=== PATIENT | female | born 1955 | race Caucasian/White ===

== ENCOUNTER 2020-02-23 08:02 | Outpatient (REF) | payer MEDICAID, SELFPAY ==
--- NOTE | 2020-02-23 | US_ITS ---
EXAMINATION: RIGHT and LEFT LOWER EXTREMITY VENOUS ULTRASOUND (Reflux Exam) CLINICAL INDICATION: leg pain and varicose veins. COMPARISON: None. TECHNIQUE: Color flow triplex imaging and compression Doppler was performed to evaluate both the deep and the superficial systems bilaterally. To evaluate the superficial system, the examination was performed in the upright position. Color-flow Doppler ultrasound and compression ultrasound were utilized. In addition, maneuvers were utilized to demonstrate reflux. FINDINGS: 1. DEEP VENOUS ULTRASOUND OF THE RIGHT LOWER EXTREMITY: Respiratory variation, normal compression and augmented flow are noted in the right common femoral vein as well as the right popliteal vein and there is no evidence of deep venous thrombosis at these locations. There is no evidence of reflux in the deep system in either the common femoral vein or the popliteal vein. There is no evidence of a Gonzalez's cyst. 2. SUPERFICIAL ULTRASOUND WITH DOPPLER OF RIGHT LOWER EXTREMITY: The right great saphenous vein at the saphenofemoral junction measures 11 mm, at the mid thigh 4 mm, [id number] 3 mm, hrapr-mom-[id number] 3 mm, at mid calf 2 mm and at the ankle measures 3 mm. There is no reflux demonstrated in the right great saphenous vein. There is an accessory medial greater saphenous vein that measures 3 mm and does not demonstrate reflux. The right small saphenous vein measures 2 mm and shows no reflux. There is a parts counter representative in the mid calf that measures 2 mm and demonstrates 2.4 seconds reflux. There is a varicosity in the mid thigh that measures 3 mm and does not demonstrate reflux. 3. DEEP VENOUS ULTRASOUND OF THE LEFT LOWER EXTREMITY: Respiratory variation, normal compression and augmented flow are noted in the left common femoral vein as well as the left popliteal vein and there is no evidence of deep venous thrombosis at these locations. There is no evidence of reflux in the deep system in either the common femoral vein or the popliteal vein. . There is no evidence of a Gonzalez's cyst. 4. SUPERFICIAL ULTRASOUND WITH DOPPLER OF LEFT LOWER EXTREMITY: Left great saphenous vein at the saphenofemoral junction measures 11 mm, at the mid thigh 5 mm, wwfsb-vtk-[id number] 4 mm, szzbx-[id number]-ykxz 4 mm, at mid calf 3 mm and at the ankle measures 3 mm. . The left great there is left greater saphenous vein reflux measuring 3 cm below the knee. There is no left greater saphenous vein reflux measuring 3 cm below the knee. There is a medial accessory greater saphenous vein in measures 5 mm and does not demonstrate reflux. The left small saphenous vein measures 2-4 mm and shows no reflux. There is a varicosity in the mid thigh that measures 3 mm and does not demonstrate reflux. IMPRESSION: 1. No evidence of reflux or thrombus in the common femoral veins or popliteal veins bilaterally. 2. LEFT greater saphenous vein reflux measuring 3 seconds below the knee. 3. No RIGHT greater saphenous vein reflux. 2.4 seconds reflux in a parts counter representative in the mid right calf
== END 2020-02-23 08:03 | disposition home or self-care (01) ==
LOC: HO.US 08:02
PROVIDERS: Visit Provider Surgery Vascular Surgery
DX: I83.11 Varicose veins of right lower extremity with inflammation (principal)
CPT/HCPCS: 93970

== ENCOUNTER 2020-03-21 10:48 | Outpatient (REF) | payer MEDICAID, SELFPAY ==
--- NOTE | 2020-03-21 | MM_ITS ---
EXAMINATION: MM SCREENING DIGITAL BREAST TOMOSYNTHESIS, BILATERAL CLINICAL INFORMATION: Screening. Asymptomatic. The lifetime risk of breast cancer based on the Tyrer-Cuzick Model is 5%. COMPARISON: Mammography: 11/21/2017, 12/15/2015 TECHNIQUE: Digital breast tomosynthesis is performed in both the craniocaudal and mediolateral oblique views along with computer-aided detection (CAD). Synthesized 2D images are generated from the tomosynthesis. FINDINGS: There are scattered areas of fibroglandular density (ACR BI-RADS breast composition Category b). There are no significant masses, abnormal calcifications, or other abnormalities. Referable pattern is similar to prior studies. No developing density. The axilla and skin contours are unremarkable. MM/MM tomosynthesis screening BI IMPRESSION: No mammographic evidence of malignancy. ASSESSMENT: BI-RADS 1: Negative RECOMMENDATION: Routine annual mammography screening. This patient's information was entered into a reminder system with a target due date for their next mammogram.
== END 2020-03-21 10:49 | disposition home or self-care (01) ==
LOC: HO.MAMMO 10:48
PROVIDERS: Visit Provider Nurse Practitioner Primary Care
DX: Z12.31 Encounter for screening mammogram for malignant neoplasm of breast (principal)
CPT/HCPCS: 77063; 77067

== ENCOUNTER 2020-04-04 19:26 | Emergency (ER) | payer MEDICAID, SELFPAY ==
[2020-04-04 19:51] VITALS: BP 168/77; PULSE 70; RESP 18; TEMP 36.1; O2SAT 97; BMI 33.5
--- NOTE | 2020-04-04 19:57 | PC.NURSE ---
wart like dry calloused lumps on feet. also smaller pustules on palms of hands.
--- NOTE | 2020-04-04 20:53 | ED_ITS ---
HPI - Skin/Abscess/Foreign Bdy General Chief complaint: Extremity Injury, Lower Stated complaint: Foot pain Source: patient Mode of arrival: ambulatory Limitations: no limitations History of Present Illness HPI narrative: 64-year-old female presents with a scattered raised pustular rash to hands and feet. rash has been present for a few weeks, was seen by urgent care or primary care physician and given topical ointments have been ineffective. She states the rash is very itchy and is getting worse. She does not describe any fevers, chills, sick contacts, insect bites, denies bedbugs, allergic reaction, chest pain or pressure, palpitations, mouth lesions, difficulty swallowing, dizziness, lightheadedness, and weakness. MD complaint: rash Onset (ago): week(s) (2) Tetanus up to date: yes Location: L hand, R hand, L foot and R foot Severity: moderate Severity scale (1-10): 6 Quality: burning Pain Consistency: constant Relieving factors: none Associated symptoms: denies other symptoms Treatments prior to arrival: corticosteroid Related Data Previous Rx's Medication Instructions Recorded diltiazem HCl 30 mg tablet 30 mg PO TID 30 Days #90 tab 04/01/20 cephalexin [Keflex] 500 mg PO Q8H 10 Days #30 cap 04/04/20 doxycycline monohydrate 100 mg PO BID 10 Days #20 cap 04/04/20 Allergies Allergy/AdvReac Type Severity Reaction Status Date / Time rivaroxaban [From XARELTO] Allergy Intermediate GI BLEEDING Verified 04/04/20 19:50 SEAFOOD Allergy Intermediate RASH Uncoded 01/28/20 19:09 seafood Allergy Unknown itch, Uncoded 01/19/20 00:00 rash, SOB Review of Systems Review of Systems: Constitutional: No Fever, No Chills ENT/Mouth: No sore throat, No Rhinorrhea Eyes: No Eye Pain, No Swelling, No Redness Cardiovascular: No Chest Pain, No SOB Respiratory: No Cough, No Sputum Gastrointestinal: No Nausea, No Vomiting, No Diarrhea, No abdominal Pain Genitourinary: No Dysuria, No Hematuria Musculoskeletal: No joint pain, No Myalgias, No Joint Swelling Skin: No Skin Lesions, positive skin rash Neuro: No Weakness, No Numbness, No Loss of Consciousness, No Dizziness, No Headache Psych: No Anxiety, No Depression, No SI/HI/AH/VH Heme/Lymph: No Bruising, No Bleeding,No Lymphadenopathy Endocrine: No Polyuria, No Polydipsia PMFSH Past Medical History Attestation statement: The following information was validated with the patient. Medical History Hepatitis B Social History Social History Advance Directives: No Advance Directives Information Provided: Yes Physical Exam Vital Signs: Vital Signs: Last Vital Signs Temp 97.0 F 04/04/20 19:51 Pulse 70 04/04/20 19:51 Resp 18 04/04/20 19:51 BP 168/77 H 04/04/20 19:51 Pulse Ox 97 04/04/20 19:51 Body Mass Index 33.5 Appearance: Alert. Oriented X3. No acute distress. Eyes: Pupils equal, round and reactive to light. ENT: Pharynx normal. Neck: Normal inspection. Neck supple. CVS: Normal heart rate and rhythm. Pulses normal. Respiratory: No respiratory distress. Breath sounds normal. Abdomen: Soft and nontender. Skin: Multiple pustule and raised areas the hands and feet, several have crust like lesions, vary in size from 1 mm to 0.5 mm. Skin warm and dry. Normal skin color. Normal skin turgor. Extremities: No lower extremity edema. Neuro: No motor deficit. No sensory deficit. Course Course Course Narrative: 64-year-old female presents with rash to hands and feet. Topical ointments have been ineffective, discussion with ED attending Dr. Logan, rash appears to be Staph in nature, plan is for p.o. antibiotics and for patient to continue to follow-up with her schedule dermatology appointment. Patient verbalized understanding of and agrees to plan of care to discharge home. She does understand that if the rash gets worse or she has any symptoms that are concerning that she should return to the emergency department. MDM - Skin/Abscess/Foreign Bdy Differential Diagnosis Differential diagnosis: Likely abscess of skin or subcutaneous tissue, viral exanthem, dermatophytosis, urticaria, herpes zoster, cellulitis, eczema, insect bites, impetigo and contact dermatitis Medical Records Attestation: I reviewed the patient's medical records. Lab Data Attestation: I reviewed the patient's lab results. Discharge Plan Discharge Clinical Impression: Staph skin infection Patient Disposition: Home, Self-Care Instructions: Acute Rash (ED) Additional Instructions: you were evaluated for rash on her hands and feet. This is suspected to be a staph skin infection. Please take doxycycline and Keflex as directed. These medications are antibiotics. Please keep your appointment with your primary care physician and cyber security engineer as scheduled. Thank you for choosing this emergency department for evaluation. Please follow-up with primary care physician as needed. Return to the emergency department for any new, concerning, or worsening symptoms. Prescriptions: New doxycycline monohydrate 100 mg capsule 100 mg PO BID 10 Days Qty: 20 RF: 0 cephalexin [Keflex] 500 mg capsule 500 mg PO Q8H 10 Days Qty: 30 RF: 0 No Action diltiazem HCl 30 mg tablet 30 mg PO TID 30 Days Qty: 90 RF: 5 Interventions: ED Discharge Assessment Last Done: 04/04/20 21:55 Discharge Date/Time: 04/04/20 21:57
[2020-04-04] MEDS: cephALEXin 500 MG CAPSULE PO (21:36)
== END 2020-04-04 21:57 | disposition home or self-care (01) ==
PROVIDERS: Emergency Provider Internal Medicine
DX: R21 Rash and other nonspecific skin eruption (principal); B95.7 Other staphylococcus as the cause of diseases classified elsewhere; M79.672 Pain in left foot; M79.671 Pain in right foot; Z79.899 Other long term (current) drug therapy
CPT/HCPCS: 99283

== ENCOUNTER 2020-04-25 11:26 | Outpatient (REF) | payer MEDICAID, SELFPAY ==
[2020-04-25 11:55] LABS: MANUAL DIFF FLAG NO
[2020-04-25 11:56] LABS: Basophils Percent Auto 0.2 % (0-2); Eosinophils Percent Auto 0.7 % (0-4); Hematocrit 40.4 % (37-47); Hemoglobin 13.2 g/dl (12.0-16.0); Imm Gran Abs Auto 0.02 X10*3/uL (0.00-0.03); Imm Gran Pct Auto 0.5 % (0.0-0.4); Lymphocytes Absolute Auto 1.4 X10*3/uL (1.2-4.9); Lymphocytes Percent Auto 33.3 % (20-40); Mean Corpuscular HGB Conc 32.7 g/dl (31.0-35.0); Mean Corpuscular Hemoglobin 29.9 pg (27.0-33.0); Mean Corpuscular Volume 91.6 fL (80-98); Mean Platelet Volume 9.3 fL (9.4-12.3); Monocytes Absolute Auto 0.4 X10*3/uL (0.1-1.2); Monocytes Percent Auto 8.5 % (2-11); Neutrophils Absolute Auto 2.4 X10*3/uL (2.0-8.3); Neutrophils Percent Auto 56.8 % (45-73); Platelet Count 120 X10*3/uL (160-400); Red Blood Count 4.41 X10*6/uL (4.20-5.50); Red Cell Distribution Width 14.8 % (11.0-16.0); White Blood Count 4.1 X10*3/uL (4.8-10.8)
[2020-04-25 12:06] LABS: INTERNATIONAL NORM RATIO 1.2 (0.9-1.1); Prothrombin Time 13.8 SEC (10.8-13.0)
[2020-04-25 12:32] LABS: Alanine Aminotransferase 30 U/L (0-31); Albumin Level 3.8 g/dL (3.5-5.0); Alkaline Phosphatase 53 U/L (39-117); Anion Gap 14 (12-20); Aspartate Amino Transferase 23 U/L (5-31); Bilirubin Total 0.6 mg/dL (0.0-1.0); Blood Urea Nitrogen 28 mg/dL (9-16); Carbon Dioxide 28 mmol/L (22-29); Chloride 103 mmol/L (96-108); Estimated Glomerular Filt Rate 55; Glucose Random 82 mg/dL (60-115); Magnesium 1.9 mg/dL (1.6-2.6); Potassium 3.6 mmol/l (3.3-5.1); Sodium 141 mmol/L (135-145); Total Protein 7.3 g/dL (6.5-8.0)
[2020-04-25 12:53] LABS: TSH reflex Free T4 1.85 mIU/mL (0.32-4.0); Vitamin D 25-OH Total 20.6 ng/mL (>30)
[2020-04-27 09:12] LABS: Alpha Fetoprotein 3.6 ng/mL
== END 2020-04-25 11:27 | disposition home or self-care (01) ==
LOC: HO.LAB 11:26
PROVIDERS: Visit Provider Internal Medicine Gastroenterology
DX: K74.60 Unspecified cirrhosis of liver (principal)
CPT/HCPCS: 36415; 80053; 82105; 82306; 83735; 84443; 85025; 85610

== ENCOUNTER → 2020-06-13 13:09 | Outpatient (BNVA) | payer MEDICAID, SELFPAY | PROVIDERS: PCP Nurse Practitioner Primary Care; Referring Provider Nurse Practitioner Primary Care; Visit Provider Internal Medicine Gastroenterology ==

== ENCOUNTER → 2021-01-31 12:42 | Outpatient (BNVA) | payer MEDICAID, SELFPAY | PROVIDERS: PCP Nurse Practitioner Primary Care; Referring Provider Nurse Practitioner Primary Care; Visit Provider Internal Medicine | DX: I48.0 Paroxysmal atrial fibrillation (principal); I10 Essential (primary) hypertension; K92.2 Gastrointestinal hemorrhage, unspecified | CPT/HCPCS: 93005; 99212 ==

== ENCOUNTER → 2021-03-14 14:15 | Outpatient (REF) | payer MEDICAID, SELFPAY ==
--- NOTE | 2021-03-14 14:20 | HM_ITS ---
Conclusion: 1. Patient was monitored for total period of 9 days and 10 hours 2. Baseline rhythm is normal sinus rhythm with average heart of 67 beats per minute 3. There is intermittent episodes of atrial fibrillation with total burden of 4.5%, longest episode lasting 2 hours in 25 minutes. Most of the time patient with atrial fibrillation rapid ventricular response 4. No significant pauses or bradycardia noted 5. Rare ectopy noted 6. No patient reported events MTDD
--- NOTE | 2021-03-14 14:20 | CA_ITS ---
Transthoracic Echocardiogram Patient (Last, First, Middle): Walt Rajan, Gender: Female Date of : 1955 Age: 65 Procedure Date: 03/14/2021 Procedure Type: Transthoracic Echocardiogram Location: OP Height: 149.86 cm Weight: 77.57 kg BSA: 1.73 m2 Heart Rate: bpm BP: 118 / 60 mmHg Carbon Furnace Operator: Referring MD: Everett Rojas MD Computer Systems Architect: Michael Campos MD Symptoms: I48.0 - Paroxysmal atrial fibrillation Study Quality: Fair ECG Rhythm: Sinus Conclusions: - 1. Normal LV systolic function with impaired relaxation filling pattern 2. Normal cardiac valvular Doppler 3. Normal RV systolic pressure 4. No pericardial effusion Findings Left Ventricle Normal left ventricular size, thickness, and systolic function. The visually estimated ejection fraction is between 60-65%. Spectral Doppler is indicative of an impaired relaxation filling pattern. E/E prime ratio is between 8 and 15 consistent with indeterminate filling pressures. Right Ventricle Normal right ventricular cavity size and systolic function. Atria The left atrium is likely dilated. There is no evidence of interatrial shunt. The right atrium is normal in size. Aortic Valve The aortic valve was not well visualized. There is no aortic valve stenosis. There is no aortic valve regurgitation. Mitral Valve There is mild anterior mitral leaflet thickening. There is mild mitral annular calcification. There is trace mitral valve regurgitation. There is no mitral valve stenosis. Pulmonic Valve The pulmonic valve was not well visualized. Tricuspid Valve The right ventricular systolic pressure is normal. The right ventricular systolic pressure is 23 mmHg. There is no evidence of pulmonary hypertension. Great Vessels All visible segments of the aorta are normal in size. The pulmonary artery was not well visualized. Venous The inferior vena cava is normal in size and collapses greater than 50% with inspiration. Pericardium/Pleural There is no evidence of pericardial effusion. Prior Study Comparison No significant change compared to prior study dated: 11/11/2018. Measurements 2D Linear Measurements IVSd: 1.10 0.6-0.9/0.6-1.0 cm LVIDd: 3.69 3.9-5.3/4.2-5.9 cm LVIDd Index: 2.13 2.4-3.2/2.2-3.1 cm/m2 LVIDs: 2.35 2.0-3.6 cm LVPWd: 1.13 0.7-1.1 cm Ao Root: 2.60 2.1-3.5 cm LA Diam: 3.30 2.7-3.8/3.0-4.0 cm LAIDs Index: 1.91 1.5-2.3 cm/m2 LV Mass: 163.52 67-162/88-224 g LV Mass Index: 94.52 43-95/49-115 g/m2 LVOT Diam: 2.00 3.0+(-)1.3 cm 2D Systolic Function EF 4C: 54.90 >55% EF 2C: 67.50 >55% EF BiP: 62.80 >55% Mitral Valve MV Pk E: 0.67 MV PK A: 0.91 MV Decel Time: 189.00 E/A: 0.70 E'Lateral: 8.05 E'Medial: 6.96 E/E' Med: 9.60 E/E' Lat: 8.30 PHT: 55.00 MVA PHT: 4.00 Decel [place]: 3.54 Aortic Valve AoV Pk Deepak: 1.66 AoV Mn Deepak: 1.03 AoV VTI: 0.34 AoV Pk Grad: 11.00 Aov Mn Grad: 5.00 WAYNE Cont.VTI: 2.63 LVOT LVOT Pk Deepak: 1.39 LVOT Mn Deepak: 0.84 LVOT VTI: 0.29 LVOT Pk Grad: 8.00 LVOT Mn Grad: 4.00 LVOT Diam: 2.00 LVOT Area: 3.14 Diastolic Function MV Pk E: 0.67 MV Pk A: 0.91 E/A: 0.70 E'Medial: 6.96 E/E' Med: 9.60 E' Laterial: 8.05 E/E' Lat: 8.30 Tricuspid Valve TR Pk Deepak: 2.23 TR Pk Grad: 20.00 RA Press: 3.00 RVSP: 23.00 Great Vessels Aorta Ao Root-2D: 2.60 2.0-3.7 cm Pulmonary Valve PV Pk Deepak: 1.32 Peak PV Grad: 7.00 Updated in Other Vendor System with Status of Final Michael Campos MD electronically signed on 03/14/2021 4:30:34 PM with status of Final
== END ==
LOC: HO.CARD 14:15
PROVIDERS: Visit Provider Internal Medicine
DX: I48.0 Paroxysmal atrial fibrillation (principal)
CPT/HCPCS: 93246; 93306

== ENCOUNTER 2021-04-04 05:50 | Emergency (ER) | payer MEDICAID, SELFPAY ==
--- NOTE | ~2021-04-04 | XR_ITS ---
EXAMINATION: XR CHEST CLINICAL INFORMATION: Cough and shortness of breath. COMPARISON: None TECHNIQUE: 2 views of the chest were obtained. FINDINGS: The lungs are well-expanded with patchy opacity right lung base likely atelectasis or developing infiltrate. Rest of the lungs are clear.. The heart size and pulmonary vascularity is normal. No gross bony abnormality seen. XR/XR chest 2V IMPRESSION: Patchy opacity right lower lobe likely developing infiltrate.
[2021-04-04 06:14] VITALS: BP 136/88; PULSE 106; RESP 21; TEMP 36.6; O2SAT 95; BMI 34.0
--- NOTE | 2021-04-04 07:00 | ED.URI ---
HPI - URI/Sore Throat General Chief Complaint: Upper Respiratory Symptoms Stated Complaint: covid exposure - SOB Time Seen by Provider: 04/04/21 07:00 Source: patient Mode of arrival: ambulatory Limitations: no limitations History of Present Illness HPI Narrative: cough for 2 weeks. patient with occaisional palpitations. chest pain with cough, not tested for COVID. patient is vaccinated. MD elicited complaint: cough Onset (ago): week(s) Consistency: constant Severity: mild Associated symptoms: cough, chest pain and shortness of breath Related Data Home Medications Medication Instructions Recorded Confirmed montelukast 10 mg tablet 10 mg PO BEDTIME 01/31/21 01/31/21 Previous Rx's Medication Instructions Recorded flecainide 50 mg tablet 50 mg PO Q12H 90 Days #180 tab 02/03/21 hydrochlorothiazide 25 mg tablet 25 mg PO QAM 90 Days #90 tab 02/09/21 metoprolol succinate 25 mg 25 mg PO QAM #90 tab 02/27/21 tablet,extended release 24 hr azithromycin 250 mg tablet See Rx Instructions .ROUTE 04/04/21 .COMPLEX #6 tab Allergies Allergy/AdvReac Type Severity Reaction Status Date / Time rivaroxaban [From XARELTO] Allergy Intermediate GI BLEEDING Verified 01/31/21 12:48 SEAFOOD Allergy Intermediate RASH Uncoded 01/28/20 19:09 seafood Allergy Unknown itch, Uncoded 01/19/20 00:00 rash, SOB Review of Systems Constitutional: Constitutional: Reports no additional constitutional complaints Eyes: Eyes: Reports no additional eye complaints ENT: Denies dizziness Cardiovascular: Cardiovascular: Reports no additional cardiovascular complaints Respiratory: Respiratory: Reports as per HPI Gastrointestinal: Gastrointestinal: Reports no additional gastrointestinal complaints Genitourinary: Genitourinary: Reports no additional female genitourinary complaints Musculoskeletal: Musculoskeletal: Reports no additional musculoskeletal complaints Integumentary/Breasts: Skin/Breast: Denies rash Neurologic: Reports system reviewed and no additional complaints, except as documented, Denies dizziness and Denies Sensory deficit (Neuro) Psychiatric: Psychiatric: Denies anxiety PMFSH Past Medical History Medical History Asthma Atrial fibrillation Cirrhosis of liver Hemorrhage of gastrointestinal tract, unspecified Hepatitis B Low vitamin D level PAF (paroxysmal atrial fibrillation) Tubular adenoma of colon Surgical History History of 3 sections History of total abdominal hysterectomy and bilateral salpingo-oophorectomy Hx of colonoscopy Family History Family History Father No problems noted. Mother No problems noted. Social History Social History Alcohol intake: never Patient Tobacco Use Status: Former Tobacco user Quit Date: 1999 Smoked: 5 +/- Advance Directives: No Physical Exam Vital Signs: Vital Signs: Last Vital Signs Temp 98.2 F 04/04/21 08:01 Pulse 98 04/04/21 08:01 Resp 16 04/04/21 08:01 BP 121/83 04/04/21 08:01 Pulse Ox 95 04/04/21 08:01 Body Mass Index 34.0 Const: Other: anxious, coughing Nutritional Appearance: average body habitus Orientation/consciousness: oriented to person and patient oriented x3 Limitations: no limitations HENMT: Head: Yes normal to inspection Ears: external ears normal General nose exam: Normal external nose present Mouth: Normal oral and palatal mucosa present and oropharynx normal Throat: Yes posterior oropharynx normal Eyes: General: appearance normal, both eyes and all related structures Neck: Other: supple Neck: Yes normal visual inspection Chest: Chest palpation & inspection: normal inspection of the chest Resp: Auscultation: clear to auscultation bilaterally Cardio: Other: tachycardia, IRRR Jugular venous distension: no JVD GI: Inspection: Yes normal to inspection Palpation (GI): Soft to palpation, nontender and No hepatosplenomegaly present Auscultation: normal bowel sounds : General: Yes no CVA tenderness Back/Spine/Pelvis: Back: no CVA tenderness Skin: General skin exam: no rashes or lesions noted Neuro: General: oriented to person and patient oriented x3 Cranial nerves: Yes CN's II-XII intact bilaterally Motor exam (neuro): 5/5 motor strength present throughout Sensory Exam: No Sensory deficit (Neuro) Extrem: General: Yes normal to inspection Psych: Appearance: grossly normal Course Reevaluation(s) Reevaluation #1: patient with COVID and now question of new patchy infiltrate on RLLL, oxygen normal will place on azithromax for 5 days and dc home Time: 09:18 MDM - URI/Sore Throat Lab Data Result diagrams: 04/04/21 08:06 04/04/21 08:06 Labs: Lab Results 04/04/21 04/04/21 04/04/21 Range/Units 06:42 08:06 08:06 WBC 2.4 L (4.8-10.8) X10*3/uL RBC 4.43 (4.20-5.50) X10*6/uL Hgb 13.3 (12.0-16.0) g/dl Hct 40.1 (37.0-47.0) % MCV 90.5 (80.0-98.0) fL MCH 30.0 (27.0-33.0) pg MCHC 33.2 (31.0-35.0) g/dl RDW 14.1 (11.0-16.0) % Plt Count 101 L (160-400) X10*3/uL MPV 10.1 (9.4-12.3) fL Immature Gran % (Auto) Cancelled Neut % (Auto) Cancelled Lymph % (Auto) Cancelled Wilkin % (Auto) Cancelled Eos % (Auto) Cancelled Baso % (Auto) Cancelled Lymph # (Auto) Cancelled Wilkin # (Auto) Cancelled Eos # (Auto) Cancelled Baso # (Auto) Cancelled Abs Immat Gran (auto) Cancelled Absolute Neuts (auto) Cancelled Absolute Nucleated RBC 0.000 (0.0-0.012) X10*3/uL Nucleated RBC % (auto) 0.0 (0.0-0.2) /100WBC Neutrophils % (Manual) 74 H (45-73) % Band Neutrophils % 0 L (3-5) % Lymphocytes % (Manual) 20 (20-40) % Atypical Lymphs % (Man) 2 (0-6) % Monocytes % (Manual) 4 (2-11) % Abs Neuts (Manual) 1.8 L (2.0-8.3) X10*3/uL Lymphocytes # (Manual) 0.5 L (1.2-4.9) X10*3/uL Monocytes # (Manual) 0.1 (0.1-1.2) X10*3/uL Platelet Estimate SLIGHTLY DECREASED (NORMAL) Plt Morphology Comment NORMAL RBC Morphology NORMAL Sodium 142 (135-145) mmol/L Potassium 3.3 (3.3-5.1) mmol/L Chloride 105 (96-108) mmol/L Carbon Dioxide 28 (22-29) mmol/L Anion Gap 12 (12-20) BUN 15 (9-16) mg/dL Creatinine 0.86 (0.5-1.4) mg/dL Estim Creat Clear Calc 56.5 Estimated GFR > 60 Random Glucose 100 (60-115) mg/dL Calcium 8.6 (8.4-10.2) mg/dL Troponin I High Sens (<3.5-17.0) ng/L COVID-19 ([facility]) Positive A (Negative) COVID-19 Clin Com See Note 04/04/21 Range/Units 08:06 WBC (4.8-10.8) X10*3/uL RBC (4.20-5.50) X10*6/uL Hgb (12.0-16.0) g/dl Hct (37.0-47.0) % MCV (80.0-98.0) fL MCH (27.0-33.0) pg MCHC (31.0-35.0) g/dl RDW (11.0-16.0) % Plt Count (160-400) X10*3/uL MPV (9.4-12.3) fL Immature Gran % (Auto) Neut % (Auto) Lymph % (Auto) Wilkin % (Auto) Eos % (Auto) Baso % (Auto) Lymph # (Auto) Wilkin # (Auto) Eos # (Auto) Baso # (Auto) Abs Immat Gran (auto) Absolute Neuts (auto) Absolute Nucleated RBC (0.0-0.012) X10*3/uL Nucleated RBC % (auto) (0.0-0.2) /100WBC Neutrophils % (Manual) (45-73) % Band Neutrophils % (3-5) % Lymphocytes % (Manual) (20-40) % Atypical Lymphs % (Man) (0-6) % Monocytes % (Manual) (2-11) % Abs Neuts (Manual) (2.0-8.3) X10*3/uL Lymphocytes # (Manual) (1.2-4.9) X10*3/uL Monocytes # (Manual) (0.1-1.2) X10*3/uL Platelet Estimate (NORMAL) Plt Morphology Comment RBC Morphology Sodium (135-145) mmol/L Potassium (3.3-5.1) mmol/L Chloride (96-108) mmol/L Carbon Dioxide (22-29) mmol/L Anion Gap (12-20) BUN (9-16) mg/dL Creatinine (0.5-1.4) mg/dL Estim Creat Clear Calc Estimated GFR Random Glucose (60-115) mg/dL Calcium (8.4-10.2) mg/dL Troponin I High Sens 8.1 (<3.5-17.0) ng/L COVID-19 ([facility]) (Negative) COVID-19 Clin Com Imaging Data Chest x-ray: Radiologist's impression: IMPRESSION: Patchy opacity right lower lobe likely developing infiltrate. ECG Data Attestation: I personally reviewed and interpreted this ECG as follows: Interpretation: atrial fibrillation rate of 105, no st or twave changes Discharge Plan Discharge Clinical Impression: COVID-19 Pneumonia Qualifiers: Pneumonia type: due to unspecified organism Laterality: right Lung location: lower lobe of lung Qualified Code(s): J18.9 - Pneumonia, unspecified organism Patient Disposition: Home, Self-Care Instructions: Pneumonia (ED), COVID-19 (Coronavirus Disease 2019) (ED) Prescriptions: New azithromycin 250 mg tablet See Rx Instructions .ROUTE .COMPLEX Qty: 6 RF: 0 No Action flecainide 50 mg tablet 50 mg PO Q12H 90 Days Qty: 180 RF: 3 hydrochlorothiazide 25 mg tablet 25 mg PO QAM 90 Days Qty: 90 RF: 3 metoprolol succinate 25 mg tablet extended release 24 hr 25 mg PO QAM Qty: 90 RF: 3 montelukast 10 mg tablet 10 mg PO BEDTIME RF: 0 Referrals: Physician,Unknown J [Primary Care Provider] - 5 days
--- NOTE | 2021-04-04 07:04 | ECG_ITS ---
Test Reason : UPPER RESP Blood Pressure : / mmHG Vent. Rate : 114 BPM Atrial Rate : 000 BPM P-R Int : 000 ms QRS Dur : 086 ms QT Int : 328 ms P-R-T Axes : 000 049 -03 degrees QTc Int : 452 ms Atrial fibrillation with rapid ventricular response Abnormal ECG When compared with ECG of 04-FEB-2016 08:31, Atrial fibrillation has replaced Sinus rhythm Vent. rate has increased BY 43 BPM Referred By: Valente Hernandez Electronically Signed By:KEVON NOLASCO MD
[2021-04-04 07:06] LABS: IDNOW Serial# 9DD0AD1C
[2021-04-04 07:07] LABS: COVID-19 Test Positive (Negative)
[2021-04-04 08:01] VITALS: BP 121/83; PULSE 98; RESP 16; TEMP 36.8; O2SAT 95
[2021-04-04 08:24] LABS: Hematocrit 40.1 % (37.0-47.0); Hemoglobin 13.3 g/dl (12.0-16.0); Mean Corpuscular HGB Conc 33.2 g/dl (31.0-35.0); Mean Corpuscular Volume 90.5 fL (80.0-98.0); Mean Platelet Volume 10.1 fL (9.4-12.3); Platelet Count 101 X10*3/uL (160-400); Red Blood Count 4.43 X10*6/uL (4.20-5.50); Red Cell Distribution Width 14.1 % (11.0-16.0)
[2021-04-04 08:26] LABS: Anion Gap 12 (12-20); Blood Urea Nitrogen 15 mg/dL (9-16); Calcium 8.6 mg/dL (8.4-10.2); Carbon Dioxide 28 mmol/L (22-29); Chloride 105 mmol/L (96-108); Creatinine Clr Calc Pharmacy 56.5; Estimated Glomerular Filt Rate > 60; Glucose Random 100 mg/dL (60-115); Potassium 3.3 mmol/L (3.3-5.1); Sodium 142 mmol/L (135-145)
[2021-04-04 08:29] LABS: White Blood Count 2.4 X10*3/uL (4.8-10.8)
[2021-04-04 08:34] LABS: Troponin-I High Sensitivity 8.1 ng/L (<3.5-17.0)
[2021-04-04 08:57] LABS: Atypical Lymphs Percent Manual 2 % (0-6); Lymphocytes Absolute Manual 0.5 X10*3/uL (1.2-4.9); Lymphocytes Percent Manual 20 % (20-40); Monocytes Absolute Manual 0.1 X10*3/uL (0.1-1.2); Monocytes Percent Manual 4 % (2-11)
[2021-04-04 08:58] LABS: Platelet Estimate SLIGHTLY DECREASED (NORMAL); Platelet Morphology Comment NORMAL; RBC Morphology NORMAL
[2021-04-04 09:04] LABS: Band Neutrophils Percent 0 % (3-5); Neutrophils Absolute Manual 1.8 X10*3/uL (2.0-8.3)
[2021-04-04 09:06] LABS: Neutrophils Percent Manual 74 % (45-73)
== END 2021-04-04 09:42 | disposition home or self-care (01) ==
PROVIDERS: Emergency Provider Emergency Medicine
DX: U07.1 COVID-19 (principal); J18.9 Pneumonia, unspecified organism; R06.02 Shortness of breath; R50.9 Fever, unspecified; R07.9 Chest pain, unspecified; Z79.899 Other long term (current) drug therapy
CPT/HCPCS: 36415; 71046; 80048; 84484; 85007; 85027; 87635; 93005; 99283; 99284

== ENCOUNTER → 2021-05-15 08:57 | Outpatient (BNVA) | payer MEDICAID, SELFPAY | PROVIDERS: PCP Nurse Practitioner Primary Care; Referring Provider Nurse Practitioner Primary Care; Visit Provider Internal Medicine | DX: I48.0 Paroxysmal atrial fibrillation (principal); I10 Essential (primary) hypertension; K92.2 Gastrointestinal hemorrhage, unspecified | CPT/HCPCS: 99212 ==

== ENCOUNTER 2021-06-12 10:42 | Outpatient (REF) | payer MEDICAID, SELFPAY ==
[2021-06-12 13:08] LABS: Alanine Aminotransferase 28 U/L (0-31); Alkaline Phosphatase 66 U/L (39-117); Anion Gap 11 (12-20); Aspartate Amino Transferase 29 U/L (5-31); Bilirubin Total 0.8 mg/dL (0.0-1.0); Blood Urea Nitrogen 21 mg/dL (9-16); Calcium 9.6 mg/dL (8.4-10.2); Carbon Dioxide 31 mmol/L (22-29); Chloride 105 mmol/L (96-108); Estimated Glomerular Filt Rate 53; Glucose Random 73 mg/dL (60-115); Iron 79 mcg/dL (30-160); Percent Iron Saturation 20 % (15-50); Potassium 3.9 mmol/L (3.3-5.1); Sodium 143 mmol/L (135-145); Total Iron Binding Capacity 397 mcg/dL (228-428); Total Protein 7.7 g/dL (6.5-8.0); Unsaturated Iron Binding 318 ug/dL
[2021-06-12 13:11] LABS: INTERNATIONAL NORM RATIO 1.2 (0.9-1.1); Prothrombin Time 13.7 SEC (9.9-13.0)
[2021-06-12 13:28] LABS: Vitamin D 25-OH Total 22.1 ng/mL (>30)
[2021-06-12 13:41] LABS: Folate 14.6 ng/mL (> or = 4.0); Vitamin B12 714 pg/mL (200-900)
[2021-06-12 14:01] LABS: Ferritin 51 ng/mL (10-250)
[2021-06-14 13:30] LABS: Alpha 1 Anti-trypsin 151 mg/dL (83-199); Ceruloplasmin 40 mg/dL (18-53)
[2021-06-15 06:51] LABS: Zinc 63 mcg/dL (60-130)
[2021-06-15 09:26] LABS: Aldolase 5.5 U/L (<=8.1)
[2021-06-15 15:27] LABS: Vitamin B6 10.8 ng/mL (2.1-21.7)
[2021-06-15 16:26] LABS: FIB-ALT 25 U/L (6-29); FIB-Alpha-2-Macroglobulin 352 mg/dL (106-279); FIB-Apolipoprotein A1 159 mg/dL (101-198); FIB-GGT 41 U/L (3-65); FIB-Haptoglobin 124 mg/dL (43-212); FIB-Total Bilirubin 0.6 mg/dL (0.2-1.2); Liver Fibrosis Score 0.55; Liver Fibrosis Stage F2; Nec Inflam Act Grade A0; Nec Inflam Act Score 0.16
[2021-06-15 18:00] LABS: Vitamin B5 (Pantothenic Acid) 64 ng/mL (<275)
[2021-06-15 18:16] LABS: Nicotinamide <20 ng/mL; Vit B3 - Nicotinic Acid <20 ng/mL
[2021-06-16 10:55] LABS: Vitamin A 37 mcg/dL (38-98)
[2021-06-16 11:21] LABS: Alpha-Tocopherol 12.5 mg/L (5.7-19.9); Beta-Gamma Tocopherol 1.1 mg/L (<=4.3)
[2021-06-18 09:56] LABS: Soluble Liver Ag Autoantibody <20.1 U (0.0-20.0)
[2021-06-20 19:41] LABS: Vitamin K1 667 pg/mL (130-1500)
== END 2021-06-12 10:43 | disposition home or self-care (01) ==
LOC: HO.LAB 10:42
PROVIDERS: PCP Nurse Practitioner Primary Care; Referring Provider Nurse Practitioner Primary Care; Visit Provider Internal Medicine Gastroenterology
DX: D12.6 Benign neoplasm of colon, unspecified (principal); K75.81 Nonalcoholic steatohepatitis (NASH); K74.60 Unspecified cirrhosis of liver; R79.89 Other specified abnormal findings of blood chemistry
CPT/HCPCS: 36415; 80053; 81596; 82085; 82103; 82180; 82306; 82390; 82607; 82728; 82746; 83520; 83540; 84207; 84446; 84590; 84591; 84597; 84630; 85610; 86704; 86706; 86709; 87340; 99212

== ENCOUNTER 2021-06-19 08:29 | Outpatient (REF) | payer MEDICAID, SELFPAY ==
--- NOTE | ~2021-06-19 | CT_ITS ---
EXAMINATION: CT ABDOMEN AND PELVIS WITHOUT AND WITH CONTRAST CLINICAL INFORMATION: Liver cirrhosis COMPARISON: Abdominal ultrasound 10/14/2019, abdominal MRI 11/24/[address] abdomen pelvis 08/15/2017 TECHNIQUE: Multidetector volumetric imaging was performed of the abdomen and pelvis before and after the IV administration of 85 mL of Omnipaque 350 intravenous contrast. Sagittal and coronal reformatted images were obtained on the technologist's workstation. This CT examination was performed using dose optimization techniques as appropriate, variously including the following: *Automated exposure control *Adjustment of mA and/or kV according to patient size (this includes techniques or standardized protocols for targeted exams where dose is matched to indication/reason for exam; i.e. extremities or head) *Use of iterative reconstruction technique DLP: 919 mGy-cm FINDINGS: Visualized lung bases are well aerated. Stable 3 mm pulmonary nodule the left lung base (image 40/720, series 8). The liver is prominent in size and demonstrates diffusely nodular contour, consistent with history of cirrhosis. No focal enhancing lesions identified within the liver. There are a few subcentimeter hepatic hypodensities which are too small to accurately characterize but statistically cysts. Small gallstones are again appreciated within otherwise unremarkable appearing gallbladder. The pancreas is normal in appearance. Punctate calcification again noted within the splenic dome. There is an approximately 1 cm lesion of the posterior spleen which although nonspecific likely corresponds with previously identified hemorrhagic cyst. Symmetrically enhancing kidneys. No renal calculi or hydronephrosis of either kidney. There is a 1 cm left renal cyst identified. And adrenal glands are unremarkable. Normal caliber loops of small and large bowel. Similar abnormal bowel rotation with the cecum located within the left mid abdomen. Mild colonic diverticulosis without CT evidence to suggest active diverticulitis. The appendix is normal. Normal caliber abdominal aorta which demonstrates moderate atherosclerotic disease. A few prominent retroperitoneal lymph nodes appear stable. Tiny fat-containing umbilical hernia is unchanged. The bladder is decompressed but grossly unremarkable. Uterus is surgically absent. No gross free pelvic fluid. No inguinal lymphadenopathy. Moderate degenerative changes of the spine. CT/CT abdomen pelvis wo/w con IMPRESSION: -Again demonstrated is a cirrhotic appearing liver. No enhancing hepatic lesions are identified. -There are numerous chronic findings within the abdomen and pelvis with appear stable. Fleischner guidelines were followed.
[2021-06-19 09:50] LABS: MANUAL DIFF FLAG NO
[2021-06-19 10:03] LABS: Basophils Percent Auto 0.4 % (0-2); Eosinophils Percent Auto 1.1 % (0-4); Hematocrit 38.5 % (37.0-47.0); Hemoglobin 12.5 g/dl (12.0-16.0); Lymphocytes Absolute Auto 0.7 X10*3/uL (1.2-4.9); Lymphocytes Percent Auto 26.6 % (20-40); Mean Corpuscular HGB Conc 32.5 g/dl (31.0-35.0); Mean Corpuscular Volume 92.3 fL (80.0-98.0); Mean Platelet Volume 10.2 fL (9.4-12.3); Monocytes Absolute Auto 0.2 X10*3/uL (0.1-1.2); Monocytes Percent Auto 8.6 % (2-11); Neutrophils Absolute Auto 1.7 x10*3/uL (2.0-8.3); Neutrophils Percent Auto 63.3 % (45-73); Platelet Count 119 X10*3/uL (160-400); Red Blood Count 4.17 X10*6/uL (4.20-5.50); Red Cell Distribution Width 14.7 % (11.0-16.0); White Blood Count 2.7 X10*3/uL (4.8-10.8)
[2021-06-19 10:59] LABS: HBsAGNum1 0.29 S/CO (0.00-0.99); Hepatitis B Surface Antigen Negative (Negative); ~HepC Num1 11.29 S/CO (0.00-0.79); ~Hepatitis C Antibody Reactive (Nonreactive)
[2021-06-19 11:45] LABS: HBc Num1 0.27 S/CO (0.00-0.79); Hepatitis B Core Antibody Nonreactive (Nonreactive); ~Hepatitis B Surface Antibody NONREACTIVE (Nonreactive)
[2021-06-22 13:47] LABS: Immunoglobulin G 1208 mg/dL (600-1540)
[2021-06-22 23:11] LABS: Anti Nuclear Antibody Screen NEGATIVE (NEGATIVE)
[2021-06-23 09:16] LABS: Hepatitis A Antibody IgM 0.62 Index (0-0.79); ~Hepatitis A Antibody IgM Nonreactive (Nonreactive)
[2021-06-23 10:27] LABS: Mitochondrial Antibodies NEGATIVE (NEGATIVE)
[2021-06-23 12:26] LABS: Transglutaminase Ab IgG <1.0 U/mL; Transglutaminase IgA <1.0 U/mL
[2021-06-23 17:17] LABS: HCV Log PCR <1.18 log IU/mL; HepC Viral Load <15 IU/mL
[2021-06-23 18:07] LABS: Vitamin C 0.8 mg/dL (0.3-2.7)
[2021-06-26 12:15] LABS: Liver Kidney Microsomal Ab <=20.0 U (<=20.0)
[2021-06-26 13:27] LABS: Smooth Muscle Antibody <20 U (<20)
== END 2021-06-19 08:30 | disposition home or self-care (01) ==
LOC: HO.CT 08:29
PROVIDERS: PCP Internal Medicine Gastroenterology; Visit Provider Internal Medicine Gastroenterology
DX: K74.60 Unspecified cirrhosis of liver (principal); D12.6 Benign neoplasm of colon, unspecified; R79.89 Other specified abnormal findings of blood chemistry; G89.29 Other chronic pain; R10.33 Periumbilical pain; R79.82 Elevated C-reactive protein (CRP); K52.839 Microscopic colitis, unspecified
CPT/HCPCS: 36415; 74178; 82180; 82784; 85025; 86015; 86038; 86039; 86255; 86256; 86364; 86376; 86704; 86706; 86709; 86803; 87340; 87522

== ENCOUNTER 2021-07-17 10:52 | Outpatient (REF) | payer MEDICAID, SELFPAY ==
--- NOTE | ~2021-07-17 | US_ITS ---
EXAMINATION: US ABDOMEN LIMITED WITH LIVER ELASTOGRAPHY CLINICAL INFORMATION: Cirrhosis. COMPARISON: Abdominal ultrasound 10/14/2019. CT abdomen 06/19/21. TECHNIQUE: Real-time imaging of the abdominal viscera. Noninvasive ultrasound liver fibrosis assessment is performed using Daniel ElastPQ point quantification shear wave elastography (2D-SWE) with a C5-2 MHz transducer. Multiple elastography samples are obtained. FINDINGS: PANCREAS: Normal. The visualized pancreatic head and body are normal in appearance. The remainder of the pancreas is obscured from visualization by the overlying bowel gas. LIVER: The liver is small and nodular consistent with cirrhosis. There are 2 adjacent small echogenic lesions in the right hepatic lobe measuring 1.1 cm and 1.1 cm in maximum dimension. These are new compared to prior. These do not have a correlate on the prior CT scan of 06/19/2021. The right lobe measures 10.7 cm in length. The left lobe measures 9.4 cm in length. Portal flow is towards the liver (hepatopetal). Shear wave liver elastography median stiffness is 1.76 m/s (reference: normal median stiffness is 1.3 m/s or less). IQR/median stiffness to assess sampling precision is 0.27 (reference: good quality data set is IQR/median stiffness of 0.15 or less). GALLBLADDER: Gallstones without evidence of cholecystitis. COMMON BILE DUCT: Normal in caliber measuring 0.3 cm in diameter. RIGHT KIDNEY: Normal. No hydronephrosis. No renal calculi or focal parenchymal lesions. The kidney measures 10.1 cm in maximum dimension. FREE FLUID: None. US/US abdomen castro w elastography IMPRESSION: 1. Cirrhotic appearing liver. Two new 1.1 cm echogenic lesions in the right hepatic lobe are suspicious given the history of cirrhosis, however these do not have a correlate on recent CT and are therefore indeterminate. Recommend further evaluation with MRI abdomen without and with contrast. 2. Liver elastography: Although measurements are suggestive of compensated advanced chronic liver disease, there is statistical variability of the sampling which decreases accuracy. Liver stiffness measurement is without significant change from prior exam (change under 10%). REFERENCE: Society of Radiologists in Ultrasound Liver Stiffness Thresholds (2019): LIVER STIFFNESS THRESHOLDS: *Liver Stiffness equal or less than 1.3 m/s: High probability of being normal. *Liver Stiffness less than 1.7 m/s: In the absence of other known clinical signs, rules out compensated advanced chronic liver disease. *Liver Stiffness 1.7-2.1 m/s: Suggestive of compensated advanced chronic liver disease but need further test for confirmation. *Liver Stiffness over 2.1 m/s: Rules in compensated advanced chronic liver disease. *Liver Stiffness over 2.4 m/s: Suggestive of clinically significant portal hypertension. QUALITY OF DATA SET: *IQR/Median value equal or less than 0.15 implies a quality data set. *IQR/Median value over 0.15 implies a poor quality data set. SIGNIFICANT CHANGE FROM PRIOR EXAM: Significant change if liver stiffness measurement is 10% or greater from prior exam. OTHER CONSIDERATIONS: The stage of liver fibrosis may be overestimated in the setting of acute hepatitis, liver inflammation, elevated liver function tests, hepatic vascular congestion, obstructive cholestasis, non-fasting state, and infiltrative diseases such as amyloidosis and lymphoma. In some patients with NAFLD, the liver stiffness thresholds for compensated advanced chronic liver disease may be lower. In causes other than viral hepatitis and NAFLD, liver stiffness thresholds are not well established.
== END 2021-07-17 10:53 | disposition home or self-care (01) ==
LOC: HO.US 10:52
PROVIDERS: PCP Nurse Practitioner Primary Care; Visit Provider Internal Medicine Gastroenterology
DX: K74.60 Unspecified cirrhosis of liver (principal); R79.89 Other specified abnormal findings of blood chemistry; D12.6 Benign neoplasm of colon, unspecified; K74.69 Other cirrhosis of liver
CPT/HCPCS: 76705; 76981

== ENCOUNTER 2021-08-07 10:17 | Outpatient (REF) | payer MEDICAID, SELFPAY ==
--- NOTE | ~2021-08-07 | MR_ITS ---
EXAMINATION: MR ABDOMEN WITHOUT AND WITH CONTRAST CLINICAL INFORMATION: Cirrhosis. COMPARISON: Previous MR of the abdomen most recent October [address] of the abdomen June 2021 and ultrasound of the abdomen July 2021. TECHNIQUE: MR abdomen was performed without and with use of 8 mL intravenous Gadavist gadolinium contrast. Postcontrast images are performed in multiphase dynamic sequences. Imaging was performed in 3 planes. FINDINGS: LUNG BASES: The visualized lung bases are unremarkable. LIVER, GALLBLADDER, AND BILIARY TREE: The liver is cirrhotic appearing with irregular scalloped contour prominence of the left lobe and caudate lobe. There is heterogeneous enhancement of the liver suggestive of fibrotic changes. There are 2 tiny probable cysts high in the dome of the liver and in the peripheral posterior segment of the right lobe for example axial T2 image 5 and 17 series 4. These appear similar to prior exam. No other focal liver lesion is seen. The hepatic veins and portal veins are patent. There are gallstones in the gallbladder. There is no intrahepatic or extrahepatic biliary duct dilatation. There is no ascites. PANCREAS: Unremarkable. SPLEEN: There is a stable likely hemorrhagic cyst in the spleen that measures 1.3 cm. ADRENAL GLANDS: Normal. KIDNEYS AND URETERS: The kidneys are normal in size, shape, and enhance symmetrically. There is a 1 cm left renal cyst. No hydronephrosis. No perinephric stranding. GASTROINTESTINAL TRACT: No bowel obstruction. No ascites or fluid collection. ABDOMINAL WALL: There is a small umbilical hernia containing fat. There is a lower abdominal wall bulge or broad-based hernia containing fat and bowel. LYMPH NODES: No lymphadenopathy. VASCULAR: Unremarkable. OSSEOUS STRUCTURES: There are degenerative changes at T10-T11. Bone marrow signal is otherwise normal. MR/MR abdomen wo/w con IMPRESSION: Cirrhotic-appearing liver. Stable probable small liver cysts. No suspicious liver lesion seen. Gallstones..
[2021-08-07 10:03] LABS: Blood Urea Nitrogen 26 mg/dL (9-16); Estimated Glomerular Filt Rate 55
== END 2021-08-07 10:18 | disposition home or self-care (01) ==
LOC: HO.MRI 10:17
PROVIDERS: Visit Provider Internal Medicine Gastroenterology
DX: K74.60 Unspecified cirrhosis of liver (principal)
CPT/HCPCS: 36415; 74183; 82565; 84520; A9585

== ENCOUNTER → 2021-10-02 09:48 | Outpatient (BNVA) | payer MEDICAID, SELFPAY | PROVIDERS: PCP Nurse Practitioner Primary Care; Referring Provider Nurse Practitioner Primary Care; Visit Provider Internal Medicine | DX: I48.0 Paroxysmal atrial fibrillation (principal); I10 Essential (primary) hypertension; K92.2 Gastrointestinal hemorrhage, unspecified; Z51.81 Encounter for therapeutic drug level monitoring; Z79.899 Other long term (current) drug therapy | CPT/HCPCS: 93005; 99212 ==

== ENCOUNTER 2021-10-10 08:43 | Day surgery (SDC) | payer MEDICAID, SELFPAY ==
[2021-10-04 15:02] VITALS: BMI 34.7
--- NOTE | 2021-10-06 13:23 | HO.ANESPROP2 ---
Documented by User: Crystal Montalvo NP 10/06/21 13:32 HPI - Anesthesia Eval Consult details Narrative: 66yo F for Upper Endoscopy and Colonoscopy Stable at routine cardiac visit 09/2021 PAF, no anticoag d/t hx of severe anemia/GI bleed Cirrhosis, small varicese by last EGD PMFSH Active Problems Active Problems: All Active Problems (Updated 10/02/21 @ 10:42 by Everett Rojas MD) Encounter for monitoring anti-arrhythmic therapy (Acute) COVID-19 (Acute) Hemorrhage of gastrointestinal tract, unspecified (Acute) Essential hypertension (Acute) PAF (paroxysmal atrial fibrillation) (Acute) Tubular adenoma of colon (Acute) Low vitamin D level (Acute) Cirrhosis of liver (Acute) Past Medical History Medical History Asthma Atrial fibrillation Cirrhosis of liver Hemorrhage of gastrointestinal tract, unspecified Hepatitis B Low vitamin D level PAF (paroxysmal atrial fibrillation) Tubular adenoma of colon Family History Family History Father No problems noted. Mother No problems noted. Surgical History Surgical History History of 3 sections History of total abdominal hysterectomy and bilateral salpingo-oophorectomy Hx of colonoscopy Social History Social History Alcohol intake: never Patient Tobacco Use Status: Former Tobacco user Quit Date: decades ago Years Smoked: 5 +/- Meds Allergies Allergy/AdvReac Type Severity Reaction Status Date / Time rivaroxaban [From XARELTO] Allergy Intermediate GI BLEEDING Verified 10/02/21 10:17 SEAFOOD Allergy Intermediate RASH Uncoded 10/02/21 10:17 Home Medications Medication Instructions Recorded Confirmed Last Taken Type montelukast 10 mg tablet 10 mg PO BEDTIME 01/31/21 10/10/21 Unknown History albuterol sulfate 90 mcg/actuation 2 puff PO Q4-6H PRN 05/15/21 10/10/21 Unknown History aerosol inhaler (ProAir HFA) fluticasone propionate 110 1 puff INHALATION BID 05/15/21 10/10/21 Unknown History mcg/actuation HFA aerosol inhaler (Flovent HFA) Exam Exam Date and Time: October 06, 2021 1323 Height,Weight and Vital Signs: Height 4 ft 11 in Weight 77.927 kg Pertinent Lab Results Pertinent Lab Results: Laboratory Tests 06/12/21 06/12/21 06/19/21 12:36 12:36 09:40 WBC 2.7 L Hgb 12.5 Hct 38.5 Plt Count 119 L PT 13.7 H INR 1.2 H Sodium 143 Potassium 3.9 Chloride 105 Carbon Dioxide 31 H BUN Creatinine 08/07/21 09:37 WBC Hgb Hct Plt Count PT INR Sodium Potassium Chloride Carbon Dioxide BUN 26 H Creatinine 1.01 Narrative Narrative: EKG 09/2021 sinus bradycardia, 55/Min; no significant ST-T changes and otherwise unremarkable ECHO 2020 Conclusions: - 1. Normal LV systolic function with impaired relaxation filling pattern? 2. Normal cardiac valvular Doppler ? 3. Normal RV systolic pressure ? 4. No pericardial effusion ?? Assessment and Plan Assessment Anesthesia Assessment: Chart Reviewed Documented by User: Jude Fields MD 10/10/21 15:57 ON LICENSE OF [facility] Past Medical History Medical History Asthma Atrial fibrillation Cirrhosis of liver Hemorrhage of gastrointestinal tract, unspecified Hepatitis B Low vitamin D level PAF (paroxysmal atrial fibrillation) Tubular adenoma of colon Functional capacity: independent ambulation Family History Family History Father No problems noted. Mother No problems noted. Family history of problems with anesthesia: No Surgical History Surgical History History of 3 sections History of total abdominal hysterectomy and bilateral salpingo-oophorectomy Hx of colonoscopy History of Problems with Anesthesia: No Social History Social History Alcohol intake: never Patient Tobacco Use Status: Former Tobacco user Quit Date: decades ago Years Smoked: 5 +/- Meds Allergies Allergy/AdvReac Type Severity Reaction Status Date / Time rivaroxaban [From XARELTO] Allergy Intermediate GI BLEEDING Verified 10/02/21 10:17 SEAFOOD Allergy Intermediate RASH Uncoded 10/02/21 10:17 Home Medications Medication Instructions Recorded Confirmed Last Taken Type montelukast 10 mg tablet 10 mg PO BEDTIME 01/31/21 10/10/21 Unknown History albuterol sulfate 90 mcg/actuation 2 puff PO Q4-6H PRN 05/15/21 10/10/21 Unknown History aerosol inhaler (ProAir HFA) fluticasone propionate 110 1 puff INHALATION BID 05/15/21 10/10/21 Unknown History mcg/actuation HFA aerosol inhaler (Flovent HFA) Exam Airway Mallampati Class: II TM Dist: >3cm Neck ROM: Full Loose/Missing/Broken Teeth: Yes (Chipped teeth , poor dentition ) Heart: S1,S2 Lungs: b/l breath sounds Assessment and Plan Assessment Anesthesia Assessment: Anesthesia Plan Discussed Final Anesthetic Review Family History of Problems with Anesthesia: No History of Problems with Anesthesia: No NPO: Yes ASA Class: III Final Preanesthetic Review: Meds/Allgs Chart Reviewed, Consent Obtained/Reviewed and Anes Risks/Benef Reviewed Patient Risk: Intermediate Procedure Risk: Intermediate Anesthetic Plan Anesthetic Plan: MAC: Disposition: Standard PACU
[2021-10-10] VITALS (7 sets, daily range): BP systolic 80–139; BP diastolic 40–70; PULSE 57–77; RESP 16–18; TEMP 36.3–37.1; O2SAT 94–100
--- NOTE | 2021-10-10 09:11 | MHC.SHP ---
Pre-Procedural Eval Section A Date of Service: 10/10/21 Section B Chief Complaint: cirrhosis of liver,abnormal findings of blood Relevant Family History (Specify if Yes): No Relevant Social History: None (ex smoker) Present Medications: see Short Stay Collaborative assessment Medical History: Significant History (Asthma Atrial fibrillation Cirrhosis of liver Hemorrhage of gastrointestinal tract, unspecified Hepatitis B Low vitamin D level PAF (paroxysmal atrial fibrillation) Tubular adenoma of colon) History of Previous Operations: Relevant previous surgery/procedure and date(s) (History of 3 sections History of total abdominal hysterectomy and bilateral salpingo-oophorectomy Hx of colonoscopy) Allergies: Allergies Allergy/AdvReac Type Severity Reaction Status Date / Time rivaroxaban [From XARELTO] Allergy Intermediate GI BLEEDING Verified 10/02/21 10:17 SEAFOOD Allergy Intermediate RASH Uncoded 10/02/21 10:17 Review of Systems Sugical H&P ROS: Negative: Constitution, Cardiovascular, Respiratory, Neurological, Psychiatric, Hem-Onc, Allergic/Immunologic, Gastrointestinal, Genitourinary, Musculoskeletal, Integumentary, Endocrine and Eyes/Ears/Nose/Throat Exam Surgical H&P Exam: Normal: HEENT, Normal: Heart, Normal: Lungs, Normal: Extremities, Normal: Abdomen, Normal: Skin and Normal: Neurological Plan Diagnosis/Plan: Unchanged I have reviewed the history and physical and performed a pertinent physical examination on my patient. No changes have occurred unless specified.
--- NOTE | 2021-10-10 09:39 | P.BOP_ITS ---
Brief Operative Note Date of Service: 10/10/21 Pre-op diagnosis: Variceeal screening, colon screening, hx of polyps Post-op diagnosis: same Procedure: see op note Surgeon: Darius Tamayo MD Anesthesia: MAC Was an [employer] used for this Procedure?: No Estimated blood loss (mL): 0 Condition: stable Disposition: PACU
--- NOTE | 2021-10-10 09:40 | W.PM.OPN ---
Operative Note Operative Note Date of Service: 10/10/21 Narrative: Operative Information Procedure Description: EGD, Colonoscopy Indication: Variceeal screening, colon screening, hx of polyps Anesthesia: MAC FLEXIBLE TRANSORAL UPPER GASTROINTESTINAL ENDOSCOPY AND COLONOSCOPY PROCEDURE NOTE UPPER ENDOSCOPY Consent: Indications for the procedure and potential complications of bleeding, perforation, reaction to medications and missed diagnosis were discussed with the patient and informed consent was obtained. Instrument: Olympus GIF H 190 J mid size upper endoscope Monitoring: Vital signs and clinical assessment, continuous EKG monitoring, Pulse oximetry, Carbon Dioxide monitoring and blood pressure monitoring were done throughout the procedure. Procedure: The patient was placed in the left lateral decubitis position and pre-procedure medications were administered and a bite block was placed. The endoscope was inserted into the mouth and advanced under direct vision to the third part of duodenum. A careful inspection was made as the upper endoscope was withdrawn including a retroflexed examination of the proximal stomach; Findings and interventions are described below. Findings: Larynx:normal Esophagus: GE junction at 37 cm, diaphragm hiatus at 37 cm, one small flat variceal cord noted Stomach: PAtchy erythema. Biopsies were obtained. Grade 2 flap valve on retroflexed examination of the cardia. No gastric varices seen Duodenum: Normal bulb and descending duodenum, Intervention: Biopsies as noted above COLONOSCOPY Instrument: Olympus variable stiffness pediatric scope 190L Colonoscopy Monitoring: Vital signs and clinical assessment, continuous EKG monitoring, Pulse oximetry, Carbon Dioxide monitoring and blood pressure monitoring were done throughout the procedure. Colon withdrawal time was 8 minutes. Procedure: The patient was placed in the left lateral decubitis position and pre-procedure medications were administered. After a digital rectal examination of the ano-rectum, the video colonoscope was inserted into the rectum and advanced through the colon to the cecum/TI. The colonoscope was slowly withdrawn in a retrograde panoramic fashion and the colon mucosa was carefully examined including a retroflexed view of the rectum. Findings and interventions are described below. Procedure Difficulty: moderate Findings: Terminal Ileum-not intubated due to looping Cecum:normal Ascending Colon: few diverticula seen, x2 sessile polyps 6-8 mm removed with cold snare Transverse Colon - 5-7 mm sessile polyp removed with cold forceps Descending Colon:normal Sigmoid Colon: mild diverticulosis Rectum: Retroflexion with small internal hemorrhoids, grade 1 Anorectum - normal Colon preparation: [place] Bowel Preparation Scale Right colon; 2 Transverse colon: 3 Left colon; 3 (0 = Unprepared colon segment with mucosa not seen due to solid stool that cannot be cleared. 1 = Portion of mucosa of the colon segment seen, but other areas of the colon segment not well seen due to staining, residual stool and/or opaque liquid. 2 = Minor amount of residual staining, small fragments of stool and/or opaque liquid, but mucosa of colon segment seen well. 3 = Entire mucosa of colon segment seen well with no residual staining, small fragments of stool or opaque liquid) Impression and Post Procedure Diagnosis: Endoscopy Findings: gastritis Colonoscopy Findings: polyps internal hemorrhoids diverticular disease Plan: Await Pathology results Repeat Colonoscopy in 5-6 years or earlier if clinically indicated High fiber diet leaflet avoid straining at stool, epsom salts and sitz bath, anusol supps or cream repeat EGD in 2 yrs or earlier if clinically indicated if h pylori pos then treat Above findings were reviewed with the patient and relevant handouts were provided if indicated.
== END 2021-10-10 11:41 | disposition home or self-care (01) ==
PROVIDERS: Visit Provider Internal Medicine Gastroenterology
PROC: (CPT 45385; principal; 2021-10-10 10:10)
DX: Z12.11 Encounter for screening for malignant neoplasm of colon (principal); Z86.010 Personal history of colon polyps; D12.3 Benign neoplasm of transverse colon; K63.5 Polyp of colon; K57.30 Diverticulosis of large intestine without perforation or abscess without bleeding; K64.0 First degree hemorrhoids; K74.60 Unspecified cirrhosis of liver; R79.89 Other specified abnormal findings of blood chemistry; K29.50 Unspecified chronic gastritis without bleeding; B96.81 Helicobacter pylori [H. pylori] as the cause of diseases classified elsewhere; K44.9 Diaphragmatic hernia without obstruction or gangrene; K75.81 Nonalcoholic steatohepatitis (NASH); B19.10 Unspecified viral hepatitis B without hepatic coma; I10 Essential (primary) hypertension; I48.0 Paroxysmal atrial fibrillation; E55.9 Vitamin D deficiency, unspecified; J45.909 Unspecified asthma, uncomplicated; Z79.01 Long term (current) use of anticoagulants; Z88.8 Allergy status to other drugs, medicaments and biological substances; Z87.891 Personal history of nicotine dependence
CPT/HCPCS: 45385; 45380; 43239; 88305; 88342; J2250

== ENCOUNTER 2021-10-31 08:00 | Outpatient (REF) | payer MEDICAID, SELFPAY ==
--- NOTE | ~2021-10-31 | MM_ITS ---
EXAMINATION: BONE DENSITOMETRY CLINICAL INDICATION: Osteoporosis. COMPARISON: This is the patient's baseline examination. TECHNIQUE: Using a [employer] DXA System (software version: 13.1) manufactured by [employer], dual-energy x-ray absorptiometry was performed of the lumbar spine and left hip. The images are of good technical quality. Summary results are attached. FINDINGS: AP SPINE L1-L4: BMD 0.937 g/cm2, Z-score -0.9, T-score -2.0, osteopenia. LEFT FEMUR, NECK: BMD 0.764 g/cm2, Z-score -0.7, T-score -2.0, osteopenia. LEFT FEMUR, TOTAL: BMD 0.933 g/cm2, Z-score 0.4, T-score -0.6, normal. IDENTIFIED RISK FACTORS: Menopause, hysterectomy, bilateral oophorectomy, secondary osteoporosis. HISTORY OF FRACTURE: None listed. MEDICATIONS: Vitamin D. MM/XR DEXA axial skeleton IMPRESSION: 1. DIAGNOSIS: Osteopenia based on the lowest T-score value of -2.0 in the femoral neck and lumbar spine applying World Health Organization criteria. 2. 10-YEAR FRACTURE RISK PREDICTION, FRAX: Major osteoporotic fracture (clinical spine, forearm, hip or shoulder) 5.9%. Hip fracture 1.0%. 3. Treatment Recommendations: NOF guidelines recommend consideration for treatment in postmenopausal women and men age 50 and older presenting with the following: -A hip or vertebral (clinical or morphometric) fracture. -T-score less than or equal to -2.5 at the femoral neck or spine after appropriate evaluation to exclude secondary causes. -Low bone mass at the hip or spine and a 10-year fracture probability by FRAX of greater than or equal to 3% for hip fracture or greater than or equal to 20% for major osteoporotic fracture based on the [place] adapted WHO algorithm. 4. Other Recommendations: All treatment decisions require clinical judgment and consideration of individual patient factors, including patient preferences, comorbidities, previous drug use, risk factors not captured in the FRAX model (e.g. frailty, falls, vitamin D deficiency, increased bone turnover, interval significant decline in bone density) and possible under or overestimation of fracture risk by FRAX. Additional medical evaluation for secondary cause of low bone mineral density may be appropriate. FUTURE SCAN RECOMMENDATION: People with diagnosed cases of osteoporosis or at high risk for fracture should have regular bone mineral density tests. For patients eligible for Medicare, routine testing is allowed once every 2 years. The testing frequency can be increased to one year for patients who have rapidly progressing disease, those who are receiving or discontinuing medical therapy to restore bone mass, or have additional risk factors.
== END 2021-10-31 08:01 | disposition home or self-care (01) ==
LOC: HO.MAMMO 08:00
PROVIDERS: Visit Provider Nurse Practitioner Primary Care
DX: Z13.820 Encounter for screening for osteoporosis (principal); Z78.0 Asymptomatic menopausal state; M85.80 Other specified disorders of bone density and structure, unspecified site
CPT/HCPCS: 77080

== ENCOUNTER 2022-01-01 11:29 | Outpatient (REF) | payer MEDICAID, SELFPAY ==
--- NOTE | ~2022-01-01 | MR_ITS ---
EXAMINATION: MR LUMBAR SPINE WITHOUT CONTRAST CLINICAL INFORMATION: 66-year-old with lumbago and self-reported right sciatica. COMPARISON: None TECHNIQUE: MRI of the lumbar spine was obtained using routine sequences without contrast. FINDINGS: Coronal Alignment: Normal. Sagittal Alignment: There is 2 mm of anterolisthesis at L4-L5 without spondylolysis. Trace retrolisthesis at L2-L3. Lumbar lordotic curvature is maintained. Lumbosacral Junction: Normal. Five (5) nonrib-bearing lumbar-type vertebral bodies. Vertebral Bodies: Normal height. Disc Spaces and Endplates: Mild multilevel disc desiccation and mild disc space height loss at L4-L5 and L3-L4. Minor degrees of anterior marginal endplate spurring and a small central Schmorl's nodes at the levels between L2-L3 and T10-T11 inclusive. Moderate disc space height loss noted at the levels between T12-L1 and T10-T11 inclusive. Spinal Canal: No abnormal developmental findings. Bone Marrow: Type I degenerative marrow signal changes noted along the endplates at T10-T11 and T11-T12. Otherwise bone marrow signal intensity appears unremarkable. Conus Medullaris: Terminates at L1. Morphology and signal is normal. Intradural Nerve Roots: Within normal limits. L5-S1: No significant disc bulge or herniation. Mild facet arthrosis noted bilaterally without significant canal or neuroforaminal stenosis. L4-L5: Slight unroofing of the posterior disc margin with mild disc bulging and superimposed left lateral foraminal/extraforaminal disc protrusion noted. There is flattening of the ventral dural sac with mild ligamentum flavum thickening and moderate bilateral facet arthrosis, with a 1 cm synovial cyst arising along the posteroinferior margin of the left facet joint and a 6 mm synovial cyst arising along the posteroinferior margin of the right facet joint. Mild right and moderate left subarticular recess stenosis noted without significant central canal stenosis. Mild left-sided neural foraminal narrowing noted without neural impingement. L3-L4: Posterolateral subarticular to foraminal disc protrusions are noted bilaterally, left more than right with minor facet arthrosis without significant canal stenosis. Slight neural foraminal narrowing on the left without neural impingement. L2-L3: Trace retrolisthesis with mild diffuse disc bulging and mild foraminal disc protrusion on the left without significant facet arthrosis, canal stenosis. Slight left-sided foraminal narrowing noted without neural impingement. L1-L2: Tiny central disc protrusion noted. No facet arthrosis, canal or neuroforaminal stenosis. T12-L1: Tiny central disc protrusion noted with minimal indentation of the ventral thecal sac without conus impingement or canal stenosis. No facet arthrosis or neuroforaminal stenosis. T11-T12: Broad-based central to left paramedian extruded disc herniation with mild cephalad migration noted without cord impingement or significant central canal stenosis. There is slight encroachment on the left subarticular zone and inferior left neural foramen without neural impingement. Paraspinal/Retroperitoneal: The paravertebral soft tissues appear unremarkable. There is a 1 cm simple-appearing cyst arising exophytically from the posterior cortex of the left mid kidney. There is a subcentimeter focus of rim shaped signal loss in the spleen which is nonspecific. These findings are unchanged in appearance compared to previous MRI of the abdomen of 08/07/2021 and are likely benign. MR/MR lumbar spine wo con IMPRESSION: 1. Slight anterolisthesis at L4-L5 without spondylolysis. Trace retrolisthesis at L2-L3. 2. Multilevel DDD and spondylosis as described above throughout the visualized thoracolumbar spine with multilevel disc bulging and disc protrusions without definite neural impingement and no definite cord impingement or significant central canal stenosis. There is moderate left and mild right subarticular recess stenosis at L4-L5. 3. Multilevel bilateral facet arthropathy, most apparent at L4-L5 and L5-S1 bilaterally.
== END 2022-01-01 11:30 | disposition home or self-care (01) ==
LOC: HO.MRI 11:29
PROVIDERS: Visit Provider Nurse Practitioner Primary Care
DX: M54.41 Lumbago with sciatica, right side (principal); M54.42 Lumbago with sciatica, left side
CPT/HCPCS: 72148

== ENCOUNTER 2022-01-22 10:01 | Outpatient (REF) | payer MEDICAID, SELFPAY ==
[2022-01-23 14:09] LABS: H Pylori Breath Test Negative (Negative)
== END 2022-01-22 10:02 | disposition home or self-care (01) ==
LOC: HO.LNP 10:01
PROVIDERS: Visit Provider Internal Medicine Gastroenterology
DX: Z23 Encounter for immunization (principal); K75.81 Nonalcoholic steatohepatitis (NASH); K74.60 Unspecified cirrhosis of liver
CPT/HCPCS: 83013; 90471; 90746; 99212

== ENCOUNTER → 2022-02-06 13:46 | Outpatient (BNVA) | payer MEDICAID, SELFPAY | PROVIDERS: Visit Provider Orthopaedic Surgery | DX: M65.331 Trigger finger, right middle finger (principal); M65.332 Trigger finger, left middle finger; M24.541 Contracture, right hand | CPT/HCPCS: 99202 ==

== ENCOUNTER → 2022-04-09 10:47 | Outpatient (BNVA) | payer MEDICAID, SELFPAY | PROVIDERS: Visit Provider Internal Medicine | DX: I48.0 Paroxysmal atrial fibrillation (principal); I10 Essential (primary) hypertension; K92.2 Gastrointestinal hemorrhage, unspecified; Z51.81 Encounter for therapeutic drug level monitoring; Z79.899 Other long term (current) drug therapy | CPT/HCPCS: 93005; 99212 ==

== ENCOUNTER 2022-05-21 09:28 | Outpatient (REF) | payer MEDICAID, SELFPAY ==
[2022-05-21 10:41] LABS: MANUAL DIFF FLAG NO
[2022-05-21 10:42] LABS: Basophils Percent Auto 0.6 % (0-2); Eosinophils Absolute Auto 0.1 X10*3/uL (0.0-0.4); Eosinophils Percent Auto 1.9 % (0-4); Hematocrit 40.1 % (37.0-47.0); Hemoglobin 12.9 g/dl (12.0-16.0); Imm Gran Abs Auto 0.01 X10*3/uL (0.00-0.03); Imm Gran Pct Auto 0.3 % (0.0-0.4); Lymphocytes Absolute Auto 0.8 X10*3/uL (1.2-4.9); Mean Corpuscular HGB Conc 32.2 g/dl (31.0-35.0); Mean Corpuscular Hemoglobin 29.3 pg (27.0-33.0); Mean Corpuscular Volume 91.1 fL (80.0-98.0); Mean Platelet Volume 9.8 fL (9.4-12.3); Monocytes Absolute Auto 0.2 X10*3/uL (0.1-1.2); Monocytes Percent Auto 6.4 % (2-11); Neutrophils Percent Auto 64.8 % (45-73); Platelet Count 122 X10*3/uL (160-400); Red Cell Distribution Width 15.6 % (11.0-16.0); White Blood Count 3.1 X10*3/uL (4.8-10.8)
[2022-05-21 10:47] LABS: INTERNATIONAL NORM RATIO 1.2 (0.9-1.1); Prothrombin Time 14.2 SEC (10.0-13.1)
[2022-05-21 11:03] LABS: Alanine Aminotransferase 27 U/L (0-31); Albumin Level 3.9 g/dL (3.5-5.0); Alkaline Phosphatase 55 U/L (39-117); Anion Gap 13 (12-20); Aspartate Amino Transferase 29 U/L (5-31); Bilirubin Total 1.1 mg/dL (0.0-1.0); Blood Urea Nitrogen 18 mg/dL (9-16); Calcium 9.8 mg/dL (8.4-10.2); Carbon Dioxide 29 mmol/L (22-29); Chloride 105 mmol/L (96-108); Estimated Glomerular Filt Rate 57; Glucose Random 102 mg/dL (60-115); Potassium 4.2 mmol/L (3.3-5.1); Sodium 143 mmol/L (135-145); Total Protein 7.4 g/dL (6.5-8.0)
[2022-05-21 11:18] LABS: HBS Num1 0.31 mIU/mL (0-7.99); ~Hepatitis B Surface Antibody NONREACTIVE (Nonreactive)
[2022-05-21 11:19] LABS: Ferritin 46 ng/mL (10-250); Vitamin D 25-OH Total 38.4 ng/mL (>30)
[2022-05-21 11:32] LABS: Folate 13.3 ng/mL (> or = 4.0); Vitamin B12 744 pg/mL (200-900)
[2022-05-25 16:24] LABS: Vitamin B6 7.2 ng/mL (2.1-21.7)
[2022-05-25 17:43] LABS: Vitamin C 0.5 mg/dL (0.3-2.7)
[2022-05-25 17:47] LABS: Zinc 60 mcg/dL (60-130)
[2022-05-25 20:29] LABS: Vitamin B5 (Pantothenic Acid) 62 ng/mL (<275)
[2022-05-25 20:39] LABS: Nicotinamide <20 ng/mL; Vit B3 - Nicotinic Acid <20 ng/mL
[2022-05-26 13:09] LABS: Vitamin B1 14 nmol/L (8-30)
[2022-05-26 18:54] LABS: Vitamin K1 761 pg/mL (130-1500)
[2022-05-27 16:38] LABS: Vitamin A 40 mcg/dL (38-98)
[2022-05-27 17:19] LABS: Alpha-Tocopherol 18.5 mg/L (5.7-19.9); Beta-Gamma Tocopherol 1.4 mg/L (<=4.3)
== END 2022-05-21 09:29 | disposition home or self-care (01) ==
LOC: HO.LAB 09:28
PROVIDERS: Visit Provider Internal Medicine Gastroenterology
DX: K74.60 Unspecified cirrhosis of liver (principal); K92.2 Gastrointestinal hemorrhage, unspecified; K75.81 Nonalcoholic steatohepatitis (NASH)
CPT/HCPCS: 36415; 80053; 82180; 82306; 82607; 82728; 82746; 84207; 84425; 84446; 84590; 84591; 84597; 84630; 85025; 85610; 86706; 99212

== ENCOUNTER 2022-06-25 09:16 | Outpatient (REF) | payer MEDICAID, SELFPAY ==
--- NOTE | ~2022-06-25 | US_ITS ---
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 Review of CT of the abdomen and pelvis June 2021 TECHNIQUE: Real-time imaging of the abdominal viscera. Noninvasive ultrasound liver fibrosis assessment is performed using Daniel ElastPQ point quantification shear wave elastography (2D-SWE) with a C5-2 MHz transducer. Multiple elastography samples are obtained. FINDINGS: PANCREAS: The visualized pancreatic head and body are normal in appearance. The remainder of the pancreas is obscured from visualization by the overlying bowel gas. LIVER: The liver appears cirrhotic. There is a 1 cm hyperechoic lesion in the right lobe of the liver. This is not appreciated on prior exams. Follow-up liver MRI is recommended. No other focal liver lesion appreciated by ultrasound. No intrahepatic biliary duct dilatation. The right lobe measures 16 cm in length. The left lobe measures 12 cm in length. Portal flow is normal/hepatopedal Liver last sonography is limited. Shear wave liver elastography median stiffness is 1.4 m/s (reference: normal median stiffness is 1.3 m/s or less). IQR/median stiffness to assess sampling precision is 0.9 (reference: good quality data set is IQR/median stiffness of 0.15 or less). GALLBLADDER: There are gallstones in the gallbladder. The gallbladder is otherwise normal. COMMON BILE DUCT: Normal in caliber measuring 0.2 cm in diameter. RIGHT KIDNEY: Normal. No hydronephrosis. No renal calculi or focal parenchymal lesions. The kidney measures 11.2 cm in maximum dimension. FREE FLUID: None. US/US abdomen castro w elastography IMPRESSION: 1. Impression: Cirrhotic-appearing liver. New hyperechoic lesion in the right lobe of the liver measuring 1 cm. Follow-up liver MRI recommended. Gallstones. Limited visualization of the tail of the pancreas. 2. Liver elastography: Limited. REFERENCE: Society of Radiologists in Ultrasound Liver Stiffness Thresholds (2020): LIVER STIFFNESS THRESHOLDS: *Liver Stiffness equal or less than 1.3 m/s: High probability of being normal. *Liver Stiffness less than 1.7 m/s: In the absence of other known clinical signs, rules out compensated advanced chronic liver disease. *Liver Stiffness 1.7-2.1 m/s: Suggestive of compensated advanced chronic liver disease but need further test for confirmation. *Liver Stiffness over 2.1 m/s: Rules in compensated advanced chronic liver disease. *Liver Stiffness over 2.4 m/s: Suggestive of clinically significant portal hypertension. QUALITY OF DATA SET: *IQR/Median value equal or less than 0.15 implies a quality data set. *IQR/Median value over 0.15 implies a poor quality data set. SIGNIFICANT CHANGE FROM PRIOR EXAM: Significant change if liver stiffness measurement is 10% or greater from prior exam. OTHER CONSIDERATIONS: The stage of liver fibrosis may be overestimated in the setting of acute hepatitis, liver inflammation, elevated liver function tests, hepatic vascular congestion, obstructive cholestasis, non-fasting state, and infiltrative diseases such as amyloidosis and lymphoma. In some patients with NAFLD, the liver stiffness thresholds for compensated advanced chronic liver disease may be lower. In causes other than viral hepatitis and NAFLD, liver stiffness thresholds are not well established.
== END 2022-06-25 09:17 | disposition home or self-care (01) ==
LOC: HO.US 09:16
PROVIDERS: Visit Provider Internal Medicine Gastroenterology
DX: K92.2 Gastrointestinal hemorrhage, unspecified (principal); K75.81 Nonalcoholic steatohepatitis (NASH); K74.60 Unspecified cirrhosis of liver; K92.9 Disease of digestive system, unspecified
CPT/HCPCS: 76705; 76981

== ENCOUNTER 2022-08-07 11:25 | Outpatient (REF) | payer MEDICAID, SELFPAY ==
--- NOTE | ~2022-08-07 | MR_ITS ---
EXAMINATION: MR ABDOMEN WITHOUT AND WITH CONTRAST CLINICAL INFORMATION: Cirrhosis COMPARISON: Previous MRI of the abdomen most recent July 2021 abdominal ultrasound most recent June [address] of the abdomen and pelvis 2021 TECHNIQUE: MR abdomen was performed without and with use of 8 mL intravenous Gadavist gadolinium contrast. Postcontrast images are performed in multiphase dynamic sequences. Imaging was performed in 3 planes. FINDINGS: LUNG BASES: The visualized lung bases are unremarkable. LIVER, GALLBLADDER, AND BILIARY TREE: The liver is cirrhotic appearing. There is no signal loss on out of phase sequences to suggest significant fatty infiltration infiltration. There are tiny probable cysts in the liver that are stable. There is a subtle area of increased T2 signal seen in the right lobe of the liver on T2 sequences for example axial image 15 series 7. In retrospect this is similar to multiple prior exams going back to 2018 and does not appear appreciably changed. No other focal liver lesion is seen. Specifically, no early arterial phase enhancement, washout and pseudocapsule formation is seen. There are gallstones in the gallbladder. There is no biliary duct dilatation. The hepatic and portal veins are patent. There is no ascites. PANCREAS: Unremarkable. SPLEEN: Probable small complex cyst in the spleen similar to previous exam ADRENAL GLANDS: Normal. KIDNEYS AND URETERS: The kidneys are normal in size, shape, and enhance symmetrically. No hydronephrosis. No perinephric stranding. Small cysts in the left kidney that is stable. No imaging follow-up. GASTROINTESTINAL TRACT: No bowel obstruction. No ascites or fluid collection. Anterior abdominal wall hernias containing fat. ABDOMINAL WALL: No significant hernia is appreciated. LYMPH NODES: No lymphadenopathy. VASCULAR: Unremarkable. OSSEOUS STRUCTURES: Degenerative changes of the lower thoracic spine. Marrow signal is otherwise normal. MR/MR abdomen wo/w con IMPRESSION: Cirrhotic-appearing liver. No suspicious liver lesion seen by MRI. Liver, spleen and left renal cysts.
== END 2022-08-07 11:26 | disposition home or self-care (01) ==
LOC: HO.MRI 11:25
PROVIDERS: Visit Provider Internal Medicine Gastroenterology
DX: K74.60 Unspecified cirrhosis of liver (principal)
CPT/HCPCS: 74183; A9585

== ENCOUNTER 2023-04-16 15:12 | Outpatient (REF) | payer MEDICAID, SELFPAY ==
--- NOTE | ~2023-04-16 | XR_ITS ---
EXAMINATION: XR CHEST 2 VIEW CLINICAL INFORMATION: Cough COMPARISON: 04/04/2021 TECHNIQUE: PA and lateral views of the chest obtained. FINDINGS: The lungs are clear. There are no pleural effusions. The cardiomediastinal silhouette is normal. XR/XR chest 2V IMPRESSION: No acute cardiopulmonary disease.
== END 2023-04-16 15:13 | disposition home or self-care (01) ==
LOC: HO.HHCX 15:12
PROVIDERS: Visit Provider Nurse Practitioner Primary Care
DX: R05.1 Acute cough (principal)
CPT/HCPCS: 71046

== ENCOUNTER → 2023-04-22 14:45 | Outpatient (BNV) | payer MEDICAID, SELFPAY | PROVIDERS: PCP Nurse Practitioner Primary Care; Visit Provider Radiology Diagnostic Radiology | DX: Z12.31 Encounter for screening mammogram for malignant neoplasm of breast (principal) | CPT/HCPCS: 77063; 77067 ==

== ENCOUNTER 2023-04-22 14:53 | Outpatient (REF) | payer MEDICAID, SELFPAY ==
--- NOTE | ~2023-04-22 | MM_ITS ---
EXAMINATION: MM SCREENING DIGITAL BREAST TOMOSYNTHESIS, BILATERAL CLINICAL INFORMATION: Screening. Asymptomatic. COMPARISON: Mammography: This study is compared with prior exams dating back to 2016. TECHNIQUE: Digital breast tomosynthesis is performed in both the craniocaudal and mediolateral oblique views along with computer-aided detection (CAD). Synthesized 2D images are generated from the tomosynthesis. FINDINGS: There are scattered areas of fibroglandular density (ACR BI-RADS breast composition Category b). There are no significant masses, abnormal calcifications, or other abnormalities. MM/MM tomosynthesis screening BI IMPRESSION: No mammographic evidence of malignancy. ASSESSMENT: BI-RADS BI-RADS 1 - Negative RECOMMENDATION: Routine annual mammography screening. 1 year F/U This examination should not preclude the clinical evaluation of a suspicious palpable abnormality. This patient's information was entered into a reminder system with a target due date for their next mammogram.
== END 2023-04-22 14:54 | disposition home or self-care (01) ==
LOC: HO.MAMMO 14:53
PROVIDERS: PCP Nurse Practitioner Primary Care; Visit Provider Nurse Practitioner Primary Care
DX: Z12.31 Encounter for screening mammogram for malignant neoplasm of breast (principal)
CPT/HCPCS: 77063; 77067

== ENCOUNTER 2023-09-16 08:46 | Outpatient (AMB) | payer MEDICAID, SELFPAY ==
[2023-09-16 08:49] VITALS: BP 122/68; PULSE 57; O2SAT 93; BMI 33.4
--- NOTE | 2023-09-16 08:49 | A.OFFVIS_ITS ---
Vital Signs 09/16/23 08:49 Height 4 ft 11 in Weight 165 lb 5.547 oz BMI 33.4 BP 122/68 Blood Pressure Location Lt brachial Position Sitting Pulse 57 Pulse Source Monitor Pulse Oximetry (%) 93 Oxygen Delivery Method Room Air Intake Visit Reasons: f/up no show last yr Allergies rivaroxaban [From XARELTO] Allergy (Intermediate, Verified 05/21/22 09:49) GI BLEEDING SEAFOOD Allergy (Intermediate, Uncoded 05/21/22 09:49) RASH Medication List - Last Reconciled 09/16/23 by Everett Rojas MD albuterol sulfate 90 mcg/actuation (ProAir HFA) 2 puffs PO Q4-6H PRN calcium carbonate-vitamin D3 600 mg-10 mcg (400 unit) 1 tab PO cholecalciferol (vitamin D3) 25 mcg PO QAM flecainide 50 mg PO BID fluticasone propionate 110 mcg/actuation (Flovent HFA) 1 puff inhalation BID hydrochlorothiazide 25 mg PO QAM lidocaine 5% (Lidoderm) 1 - 2 patches topical DAILY PRN metoprolol succinate ER 50 mg (2 x 25 mg) PO QAM montelukast 10 mg PO BEDTIME tramadol 50 - 100 mg PO Q12H PRN HPI Comments Details: Walt returns for follow-up regarding paroxysmal atrial fibrillation. She is maintained on combination of flecainide and beta-blockers. She has been on Xarelto in the past but had significant GI bleeding with anemia as low as 4.9 in 2017. Hence not on any anticoagulation. She states she does get some palpitations off and on. Most days are okay but sometimes she feels some fluttering. Not clear if she is having atrial fi brillation or something else. No other cardiac symptoms. FORMERLY [facility], [facility] Medical History Hemorrhage of gastrointestinal tract, unspecified PAF (paroxysmal atrial fibrillation) Tubular adenoma of colon Low vitamin D level Atrial fibrillation Cirrhosis of liver Asthma Hepatitis B Surgical History History of 3 sections History of esophagogastroduodenoscopy (EGD) History of total abdominal hysterectomy and bilateral salpingo-oophorectomy Hx of colonoscopy Family History Father No problems noted. Mother No problems noted. 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 Review of Systems Const Denies weakness ENT Denies dizziness Card Denies chest pain, Denies chest pain with activity, Denies syncope, Denies rapid heart rate, Denies pedal edema, Denies edema, Denies leg edema, Denies lightheadedness, Denies palpitations, Denies dyspnea, Denies dyspnea on exertion and Denies orthopnea Resp Denies cough, Denies dyspnea and Denies dyspnea on exertion GI Denies hematochezia and Denies change in stool character Musc Denies abnormal gait, Denies muscle cramps, Denies muscle weakness, Denies numbness, Denies radiating pain into limb and Denies tingling Neuro Denies abnormal gait, Denies dizziness, Denies syncope, Denies numbness, Denies tingling and Denies weakness Endo Denies palpitations Physical Exam Vital Signs: Last Vital Signs Pulse 57 09/16/23 08:49 BP 122/68 09/16/23 08:49 Pulse Ox 93 09/16/23 08:49 Oxygen Delivery Method Room Air 09/16/23 08:49 BMI result Body Mass Index 33.4 Const General: comfortable and no acute distress Orientation/consciousness: patient oriented x3 HEENT Other: Unremarkable Head: Yes normal to inspection Neck Neck: Yes normal visual inspection Chest Chest palpation & inspection: normal inspection of the chest Resp Auscultation: clear to auscultation bilaterally Cardio Palpation: normal PMI Heart sounds: S1 normal heart sound present, S2 normal heart sound present, no gallops, no murmurs and no rubs GI Palpation (GI): Soft to palpation Back/Spine/Pelvis Other: unremarkable Skin General skin exam: no rashes or lesions noted Neuro General: patient oriented x3 Extrem General: Yes normal to inspection Psych Mental Status: mental status grossly normal Office Procedures EKG Details: EKG with sinus bradycardia at 57/Min; no significant ST-T changes and otherwise unremarkable[place] [id number], Complete Assessment & Plan Assessment & Plan (1) PAF (paroxysmal atrial fibrillation): Code(s): I48.0 - Paroxysmal atrial fibrillation Category: Medical Plan: Continue metoprolol/flecainide as before. Not on Xarelto due to history of significant bleeding and there is a history of cirrhosis as well. Due to palpitations, check Holter. (2) Encounter for monitoring anti-arrhythmic therapy: Code(s): Z51.81 - Encounter for therapeutic drug level monitoring; Z79.899 - Other retirement (current) drug therapy Category: Medical Plan: Maintained on flecainide. Stress test in the past showed no ischemic findings and she does not have any angina either. Last echocardiogram from 2020 with normal LVEF. (3) Essential hypertension: Code(s): I10 - Essential (primary) hypertension Category: Medical Plan: Stable. No changes. (4) Hemorrhage of gastrointestinal tract, unspecified: Code(s): K92.2 - Gastrointestinal hemorrhage, unspecified Category: Medical Plan: Previously, EGD shows gastritis. Recent colonoscopy shows polyps, internal hemorrhoids and diverticular disease. Severe anemia from Xarelto in the past. Hence not on any anticoagulation. If recurrent atrial fibrillation, then we will need to reassess. Orders: Orders CA echo transthoracic complete Today I48.0 - Paroxysmal atrial fibrillation ECG 14 day holter monitor Today I48.0 - Paroxysmal atrial fibrillation, R00.2 - Palpitations Coding Level of Care Code Est Pt Level 4 (92888) Diagnoses PAF (paroxysmal atrial fibrillation) I48.0 Encounter for monitoring anti-arrhythmic therapy Z51.81; Z79.899 Essential hypertension I10 Hemorrhage of gastrointestinal tract, unspecified K92.2 CPT Codes EKG - CPT: 58590-[id number], Complete ([id number])
== END 2023-09-16 09:17 | disposition home or self-care (01) ==
PROVIDERS: PCP Nurse Practitioner Primary Care; Visit Provider Internal Medicine
DX: I48.0 Paroxysmal atrial fibrillation (principal); Z51.81 Encounter for therapeutic drug level monitoring; Z79.899 Other long term (current) drug therapy; I10 Essential (primary) hypertension; K92.2 Gastrointestinal hemorrhage, unspecified
CPT/HCPCS: 93010; 99214

== ENCOUNTER → 2023-09-16 08:46 | Outpatient (BNVA) | payer MEDICAID, SELFPAY | PROVIDERS: PCP Nurse Practitioner Primary Care; Visit Provider Internal Medicine | DX: I48.0 Paroxysmal atrial fibrillation (principal); Z51.81 Encounter for therapeutic drug level monitoring; I10 Essential (primary) hypertension; K92.2 Gastrointestinal hemorrhage, unspecified; Z79.899 Other long term (current) drug therapy | CPT/HCPCS: 93005; 99212 ==

== ENCOUNTER 2023-09-16 09:26 | Outpatient (REF) | payer MEDICAID, SELFPAY ==
[2023-09-16 11:08] LABS: Anion Gap 15 (12-20); Blood Urea Nitrogen 18 mg/dL (9-16); Calcium 9.9 mg/dL (8.4-10.2); Carbon Dioxide 28 mmol/L (22-29); Chloride 104 mmol/L (96-108); Cholesterol 189 mg/dL (<200); Estimated Glomerular Filt Rate > 60; Glucose Random 83 mg/dL (60-115); HDL Cholesterol 46 mg/dL (>40); LDL Cholesterol Calculated 131 mg/dL (<100); Potassium 4.1 mmol/L (3.3-5.1); Sodium 143 mmol/L (135-145); Triglycerides 64 mg/dL (<150)
[2023-09-16 12:19] LABS: Creatinine Urine 22.03 mg/dL; Microalbumin Urine < 5.0 mg/L
== END 2023-09-16 09:27 | disposition home or self-care (01) ==
LOC: HO.LAB 09:26
PROVIDERS: PCP Nurse Practitioner Primary Care; Visit Provider Nurse Practitioner Primary Care
DX: I10 Essential (primary) hypertension (principal); I25.118 Atherosclerotic heart disease of native coronary artery with other forms of angina pectoris
CPT/HCPCS: 36415; 80048; 80061; 82043; 82570

== ENCOUNTER → 2023-10-08 09:40 | Outpatient (REF) | payer MEDICAID, SELFPAY ==
--- NOTE | 2023-10-08 09:50 | CA_ITS ---
Transthoracic Echocardiogram Patient (Last, First, Middle): Walt Rajan, Gender: Female Date of : 1955 Age: 68 Procedure Date: 10/08/2023 Procedure Type: Transthoracic Echocardiogram Location: OP Height: 149.86 cm Weight: 79.83 kg BSA: 1.75 m2 Heart Rate: bpm BP: 110 / 70 mmHg Export Agent: TO Referring MD: Everett Rojas MD Symptoms: I48.0 - Paroxysmal atrial fibrillation Study Quality: Fair/Contrast ECG Rhythm: Sinus Conclusions: - The left ventricular systolic function is normal. The calculated ejection fraction is 60% by biplane method. - No obvious valvular pathology seen on this study. Findings Procedure Information Contrast agent, definity, is being given per protocol without apparent complications. Left Ventricle Normal left ventricular cavity size. There is normal left ventricular wall thickness. The left ventricular systolic function is normal. The calculated ejection fraction is 60% by biplane method. There is no evidence of regional wall motion abnormalities. Diastolic function is normal for age. Right Ventricle Normal right ventricular cavity size and systolic function. Atria The left atrium is moderately dilated. The right atrium is normal in size. Aortic Valve There is a normal trileaflet aortic valve. There is no aortic valve stenosis. There is no aortic valve regurgitation. Mitral Valve There is mild mitral annular calcification. There is trace mitral valve regurgitation. There is no mitral valve stenosis. Pulmonic Valve The pulmonic valve is likely normal. Tricuspid Valve Normal tricuspid valve structure. There is mild tricuspid valve regurgitation. There is no evidence of pulmonary hypertension. Great Vessels The asc aorta is normal in size. Small plaque is seen in the sino tubular ridge. Venous The inferior vena cava is normal in size and collapses greater than 50% with inspiration. Pericardium/Pleural There is no evidence of pericardial effusion. Prior Study Comparison No significant change compared to prior study dated: 03/14/2021. Recommendations, Care & Conclusions No obvious valvular pathology seen on this study. Measurements 2D Linear Measurements IVSd: 1.00 0.6-0.9/0.6-1.0 cm LVIDd: 4.95 3.9-5.3/4.2-5.9 cm LVIDd Index: 2.83 2.4-3.2/2.2-3.1 cm/m2 LVIDs: 3.33 2.0-3.6 cm LVPWd: 0.71 0.7-1.1 cm LA Diam: 4.00 2.7-3.8/3.0-4.0 cm LAIDs Index: 2.29 1.5-2.3 cm/m2 LV Mass: 181.36 67-162/88-224 g LV Mass Index: 103.64 43-95/49-115 g/m2 LVOT Diam: 1.90 3.0+(-)1.3 cm 2D Systolic Function EF 4C: 58.70 >55% EF 2C: 61.00 >55% EF BiP: 59.50 >55% Mitral Valve MV VTI: 0.40 MV Pk Deepak: 0.99 MV Mn Deepak: 0.55 MV Pk Grad: 4.00 MV Mn Grad: 1.00 MV Pk E: 0.87 MV PK A: 0.55 MV Decel Time: 215.00 E/A: 1.60 E'Lateral: 10.40 E'Medial: 6.31 E/E' Med: 13.70 E/E' Lat: 8.30 PHT: 63.00 MVA PHT: 3.49 MVA Continuity: 1.80 Decel [place]: 4.03 Aortic Valve AoV Pk Deepak: 1.69 AoV Mn Deepak: 1.18 AoV VTI: 0.41 AoV Pk Grad: 11.00 Aov Mn Grad: 6.00 WAYNE Cont.VTI: 1.77 LVOT LVOT Pk Deepak: 1.16 LVOT Mn Deepak: 0.75 LVOT VTI: 0.25 LVOT Pk Grad: 5.00 LVOT Mn Grad: 3.00 LVOT Diam: 1.90 LVOT Area: 2.84 Diastolic Function MV Pk E: 0.87 MV Pk A: 0.55 E/A: 1.60 E'Medial: 6.31 E/E' Med: 13.70 E' Laterial: 10.40 E/E' Lat: 8.30 Right Ventricle TAPSE (mm): 29.50 TVS' Deepak: 12.00 Tricuspid Valve TR Pk Deepak: 2.32 TR Pk Grad: 22.00 RA Press: 3.00 RVSP: 25.00 Great Vessels Aorta Sinus of Valsalva: 3.07 2.0-3.5 cm Ao Asc: 3.40 2.1-3.4 cm Updated in Other Vendor System with Status of Final Everett Rojas MD electronically signed on 10/09/2023 12:18:24 PM with status of Final
--- NOTE | 2023-10-08 09:50 | HM_ITS ---
Conclusion: 1. Patient was monitored for total period of 2 days 2. Baseline was normal sinus rhythm with average heart of 65 beats per minute 3. Intermittent episodes of atrial fibrillation noted with total burden of 11.5% with fastest heart rate of 127 beats per minute 4. One post-conversion pause noted at 2.6 seconds at 08:30 5. Rare PACs noted 6. Patient marked 1 event correlating with sinus rhythm MTDD
== END ==
LOC: HO.CARD 09:40
PROVIDERS: PCP Nurse Practitioner Primary Care; Visit Provider Internal Medicine
DX: R00.2 Palpitations (principal); I48.0 Paroxysmal atrial fibrillation
CPT/HCPCS: 93225; 93306; Q9957

== ENCOUNTER → 2023-10-08 09:50 | Outpatient (BNV) | payer MEDICAID, SELFPAY | PROVIDERS: PCP Nurse Practitioner Primary Care; Visit Provider Internal Medicine | DX: I48.91 Unspecified atrial fibrillation (principal) | CPT/HCPCS: 93227; 93306 ==

== ENCOUNTER 2023-11-25 10:11 | Outpatient (AMB) | payer MEDICAID, SELFPAY ==
[2023-11-25 10:14] VITALS: BP 122/60; PULSE 108; BMI 34.3
--- NOTE | 2023-11-25 10:14 | A.OFFVIS_ITS ---
Vital Signs 11/25/23 10:14 Height 4 ft 11 in Weight 169 lb 12.095 oz BMI 34.3 BP 122/60 Blood Pressure Location Lt brachial Position Sitting Pulse 108 H Pulse Source Monitor Intake Visit Reasons: 2m follow up/holter/echo Allergies rivaroxaban [From XARELTO] Allergy (Intermediate, Verified 05/21/22 09:49) GI BLEEDING SEAFOOD Allergy (Intermediate, Uncoded 05/21/22 09:49) RASH Medication List - Last Reconciled 11/25/23 by Everett Rojas MD albuterol sulfate 90 mcg/actuation (ProAir HFA) 2 puffs PO Q4-6H PRN calcium carbonate-vitamin D3 600 mg-10 mcg (400 unit) 1 tab PO cholecalciferol (vitamin D3) 25 mcg PO QAM fluticasone propionate 110 mcg/actuation (Flovent HFA) 1 puff inhalation BID hydrochlorothiazide 25 mg PO QAM lidocaine 5% (Lidoderm) 1 - 2 patches topical DAILY PRN metoprolol tartrate 50 mg PO BID 90 days montelukast 10 mg PO BEDTIME tramadol 50 - 100 mg PO Q12H PRN HPI Comments Details: Walt returns for follow-up regarding paroxysmal atrial fibrillation. She is maintained on combination of flecainide and beta-blockers. She has been on Xarelto in the past but had significant GI bleeding with anemia as low as 4.9 in 2017. Hence not on any anticoagulation. Recently, she is noticing some palpitations. When she is lying down nighttime, she states she gets short of breath. Because of this she underwent a Holter monitor that showed some atrial fibrillation episodes. We as GI about resuming anticoagulation and they would like to do a EGD to assess for varices. That is pending for later this month. [facility] Medical History Hemorrhage of gastrointestinal tract, unspecified PAF (paroxysmal atrial fibrillation) Tubular adenoma of colon Low vitamin D level Atrial fibrillation Cirrhosis of liver Asthma Hepatitis B Surgical History History of 3 sections History of esophagogastroduodenoscopy (EGD) History of total abdominal hysterectomy and bilateral salpingo-oophorectomy Hx of colonoscopy Family History Father No problems noted. Mother No problems noted. 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 Review of Systems Const Denies weakness ENT Reports dizziness Card Reports chest pain, Reports chest pain with activity, Denies syncope, Denies rapid heart rate, Denies pedal edema, Denies edema, Denies leg edema, Denies lightheadedness, Denies palpitations, Denies dyspnea, Denies dyspnea on exertion and Denies orthopnea Resp Denies cough, Denies dyspnea and Denies dyspnea on exertion GI Denies hematochezia and Denies change in stool character Musc Denies abnormal gait, Denies muscle cramps, Denies muscle weakness, Denies numbness, Denies radiating pain into limb and Denies tingling Neuro Denies abnormal gait, Reports dizziness, Denies syncope, Denies numbness, Denies tingling and Denies weakness Endo Denies palpitations Physical Exam Vital Signs: Last Vital Signs Pulse 108 H 11/25/23 10:14 BP 122/60 11/25/23 10:14 BMI result Body Mass Index 34.3 Const General: comfortable and no acute distress Orientation/consciousness: patient oriented x3 HEENT Other: Unremarkable Head: Yes normal to inspection Neck Neck: Yes normal visual inspection Chest Chest palpation & inspection: normal inspection of the chest Resp Auscultation: clear to auscultation bilaterally Cardio Palpation: normal PMI Heart sounds: S1 normal heart sound present, S2 normal heart sound present, no gallops, no murmurs and no rubs GI Palpation (GI): Soft to palpation Back/Spine/Pelvis Other: unremarkable Skin General skin exam: no rashes or lesions noted Neuro General: patient oriented x3 Extrem General: Yes normal to inspection Psych Mental Status: mental status grossly normal Office Procedures EKG Details: EKG with atrial fibrillation at a rate of 108/Min. [id number], Complete Assessment & Plan Assessment & Plan (1) PAF (paroxysmal atrial fibrillation): Code(s): I48.0 - Paroxysmal atrial fibrillation Category: Medical Plan: In the recent Holter, underlying rhythm is sinus at 65/Min. Intermittent atrial fibrillation burden of 11%. One post-conversion pause of 2.6 seconds at 08:30 hours. Today, she is in atrial fibrillation with slightly rapid rate. We will stop the flecainide. Increase the dose of metoprolol from 50 mg once a day to twice a day. Check EKG in 1 week. Not on Xarelto due to history of significant bleeding and there is a history of cirrhosis as well. Awaiting GI input and she is going for endoscopy very soon. Eventually, consider EP evaluation for ablation (vs ?watchman). 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 Discussed with patient. Stress test in the past showed no ischemic findings and she does not have any angina either. Last echocardiogram from 2020 with normal LVEF. (3) Essential hypertension: Code(s): I10 - Essential (primary) hypertension Category: Medical Plan: Stable. No changes. (4) Hemorrhage of gastrointestinal tract, unspecified: Code(s): K92.2 - Gastrointestinal hemorrhage, unspecified Category: Medical Plan: History of GI bleed in the past. Awaiting endoscopy in a couple of weeks. Medications: New metoprolol tartrate 50 mg PO BID 180 tabs 3RF 90 days Discontinued flecainide Discontinued Reason: Doctor's Order 50 mg PO BID 180 tabs 3RF metoprolol succinate ER Discontinued Reason: Doctor's Order 50 mg (2 x 25 mg) PO QAM 180 tabs 3RF I48.0 - Paroxysmal atrial fibrillation Coding Level of Care Code Est Pt Level 4 (05898) Diagnoses PAF (paroxysmal atrial fibrillation) I48.0 Encounter for monitoring anti-arrhythmic therapy Z51.81; Z79.899 Essential hypertension I10 Hemorrhage of gastrointestinal tract, unspecified K92.2 CPT Codes EKG - CPT: 70278-[id number], Complete ([id number])
== END 2023-11-25 10:57 | disposition home or self-care (01) ==
PROVIDERS: PCP Nurse Practitioner Primary Care; Visit Provider Internal Medicine
DX: I48.0 Paroxysmal atrial fibrillation (principal); Z51.81 Encounter for therapeutic drug level monitoring; Z79.899 Other long term (current) drug therapy; I10 Essential (primary) hypertension; K92.2 Gastrointestinal hemorrhage, unspecified
CPT/HCPCS: 93010; 99214

== ENCOUNTER → 2023-11-25 10:11 | Outpatient (BNVA) | payer MEDICAID, SELFPAY | PROVIDERS: PCP Nurse Practitioner Primary Care; Visit Provider Internal Medicine | DX: I48.0 Paroxysmal atrial fibrillation (principal); I10 Essential (primary) hypertension; K92.2 Gastrointestinal hemorrhage, unspecified; Z51.81 Encounter for therapeutic drug level monitoring; Z79.899 Other long term (current) drug therapy; R94.31 Abnormal electrocardiogram [ECG] [EKG]; I48.20 Chronic atrial fibrillation, unspecified | CPT/HCPCS: 93005; 99212 ==

== ENCOUNTER 2023-12-02 09:26 | Outpatient (AMB) | payer MEDICAID, SELFPAY ==
--- NOTE | 2023-12-02 09:38 | AM.OFFVISNUR ---
Intake Visit Reasons: ekg 1 wk Allergies rivaroxaban [From XARELTO] Allergy (Intermediate, Verified 05/21/22 09:49) GI BLEEDING SEAFOOD Allergy (Intermediate, Uncoded 05/21/22 09:49) RASH Nursing Note PT IS HERE FOR NURSE VISIT WITH EKG PT IS UP TO DATE WITH ALL CARDIAC MEDS Office Procedures EKG [id number], Complete
== END 2023-12-02 09:42 | disposition home or self-care (01) ==
PROVIDERS: PCP Nurse Practitioner Primary Care; Visit Provider Internal Medicine
DX: I10 Essential (primary) hypertension (principal)
CPT/HCPCS: 93010

== ENCOUNTER → 2023-12-02 09:26 | Outpatient (BNVA) | payer MEDICAID, SELFPAY | PROVIDERS: PCP Nurse Practitioner Primary Care; Visit Provider Internal Medicine | DX: Z13.6 Encounter for screening for cardiovascular disorders (principal) | CPT/HCPCS: 93005 ==

== ENCOUNTER 2023-12-09 09:05 | Day surgery (SDC) | payer MEDICAID, SELFPAY ==
[2023-12-09 10:11] VITALS: BMI 35.3
[2023-12-09] MEDS: Lactated Ringers 1,000 ML 100 ML IVCONT (10:17)
[2023-12-09 10:23] VITALS: BP 125/59; PULSE 55; RESP 18; TEMP 36.7; O2SAT 100
[2023-12-09 10:30] LABS: Hematocrit 40.4 % (37.0-47.0); Hemoglobin 13.8 g/dl (12.0-16.0); Mean Corpuscular HGB Conc 34.2 g/dl (31.0-35.0); Mean Corpuscular Volume 90.8 fL (80.0-98.0); Mean Platelet Volume 9.5 fL (9.4-12.3); Platelet Count 142 X10*3/uL (160-400); Red Blood Count 4.45 X10*6/uL (4.20-5.50); Red Cell Distribution Width 14.4 % (11.0-16.0)
--- NOTE | 2023-12-09 10:30 | HO.ANESPROP2 ---
Documented by User: Crystal Montalvo NP 12/06/23 10:40 HPI - Anesthesia Eval Consult details Narrative: 68yo F for Upper Endoscopy Afib - No OAC d/t hx of GI bleed (cirrhosis) EGD to eval for varices prior to restarting anticoag PMFSH Active Problems Active Problems: All Active Problems Contracture of joint of finger of right hand (Acute) Trigger finger, left middle finger (Acute) Trigger finger, right middle finger (Acute) Encounter for monitoring anti-arrhythmic therapy (Acute) COVID-19 (Acute) Hemorrhage of gastrointestinal tract, unspecified (Acute) Essential hypertension (Acute) PAF (paroxysmal atrial fibrillation) (Acute) Tubular adenoma of colon (Acute) Low vitamin D level (Acute) Cirrhosis of liver (Acute) Past Medical History Medical History Hemorrhage of gastrointestinal tract, unspecified PAF (paroxysmal atrial fibrillation) Tubular adenoma of colon Low vitamin D level Atrial fibrillation Cirrhosis of liver Asthma Hepatitis B Family History Family History Father No problems noted. Mother No problems noted. 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 Meds Allergies Allergy/AdvReac Type Severity Reaction Status Date / Time rivaroxaban [From XARELTO] Allergy Intermediate GI BLEEDING Verified 12/09/23 09:55 SEAFOOD Allergy Intermediate RASH Uncoded 12/09/23 09:55 Home Medications ?Medication ?Instructions ?Recorded ?Confirmed ?Last Taken ?Type montelukast 10 mg tablet 10 mg PO BEDTIME 01/31/21 12/09/23 Unknown History albuterol sulfate 90 mcg/actuation 2 puff PO Q4-6H PRN sob 05/15/21 12/09/23 Unknown History aerosol inhaler (ProAir HFA) fluticasone propionate 110 1 puff inhalation BID 05/15/21 12/09/23 Unknown History mcg/actuation HFA aerosol inhaler (Flovent HFA) calcium carbonate 600 mg-vitamin 1 tab PO 01/22/22 11/25/23 Unknown History D3 10 mcg (400 unit) tablet lidocaine 5 % topical patch 1 - 2 patch topical DAILY PRN pain 01/22/22 12/09/23 Unknown History (Lidoderm) tramadol 50 mg tablet 50 - 100 mg PO Q12H PRN Pain 01/22/22 12/09/23 Unknown History (Scale Score 7-10) Exam Pertinent Lab Results Pertinent Lab Results: Laboratory Tests 09/16/23 09:41 Sodium 143 Potassium 4.1 Chloride 104 Carbon Dioxide 28 BUN 18 H Creatinine 0.89 Narrative Narrative: EKG 12/02/23 NSR @ 60 Assessment and Plan Assessment Anesthesia Assessment: Chart Reviewed Final Anesthetic Review Family History of Problems with Anesthesia: No History of Problems with Anesthesia: No Documented by User: Ayana Eduardo DO 12/09/23 10:33 PMFSH Past Medical History Medical History Hemorrhage of gastrointestinal tract, unspecified PAF (paroxysmal atrial fibrillation) Tubular adenoma of colon Low vitamin D level Atrial fibrillation Cirrhosis of liver Asthma Hepatitis B Family History Family History Father No problems noted. Mother No problems noted. 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 Meds Allergies Allergy/AdvReac Type Severity Reaction Status Date / Time rivaroxaban [From XARELTO] Allergy Intermediate GI BLEEDING Verified 12/09/23 09:55 SEAFOOD Allergy Intermediate RASH Uncoded 12/09/23 09:55 Home Medications ?Medication ?Instructions ?Recorded ?Confirmed ?Last Taken ?Type montelukast 10 mg tablet 10 mg PO BEDTIME 01/31/21 12/09/23 Unknown History albuterol sulfate 90 mcg/actuation 2 puff PO Q4-6H PRN sob 05/15/21 12/09/23 Unknown History aerosol inhaler (ProAir HFA) fluticasone propionate 110 1 puff inhalation BID 05/15/21 12/09/23 Unknown History mcg/actuation HFA aerosol inhaler (Flovent HFA) calcium carbonate 600 mg-vitamin 1 tab PO 01/22/22 11/25/23 Unknown History D3 10 mcg (400 unit) tablet lidocaine 5 % topical patch 1 - 2 patch topical DAILY PRN pain 01/22/22 12/09/23 Unknown History (Lidoderm) tramadol 50 mg tablet 50 - 100 mg PO Q12H PRN Pain 01/22/22 12/09/23 Unknown History (Scale Score 7-10) Exam Exam Date and Time: December 09, 2023 1030 Height,Weight and Vital Signs: Height 4 ft 11 in Weight 79.197 kg Vital Signs Temperature 98.0 F 12/09/23 10:23 Pulse Rate 55 12/09/23 10:23 Respiratory Rate 12/09/23 10:23 Blood Pressure 125/59 L 12/09/23 10:23 Pulse Oximetry 100 12/09/23 10:23 Oxygen Delivery Method Room Air 12/09/23 10:23 Temperature 98.0 F 12/09/23 10:23 Pulse Rate 55 12/09/23 10:23 Respiratory Rate 18 12/09/23 10:23 Blood Pressure 125/59 L 12/09/23 10:23 Pulse Oximetry 100 12/09/23 10:23 Oxygen Delivery Method Room Air 12/09/23 10:23 Airway Mallampati Class: II TM Dist: >3cm Neck ROM: Full Loose/Missing/Broken Teeth: Yes (broken molars left upper jaw) Heart: S1S2 Lungs: CTAB Assessment and Plan Assessment Anesthesia Assessment: Anesthesia Plan Discussed and Chart Reviewed Final Anesthetic Review Family History of Problems with Anesthesia: No History of Problems with Anesthesia: No NPO: Yes ASA Class: III Final Preanesthetic Review: No Changes in Pt Med Stat, Meds/Allgs Chart Reviewed, Consent Obtained/Reviewed and Anes Risks/Benef Reviewed Patient Risk: Intermediate Procedure Risk: Low Anesthetic Plan Anesthetic Plan: MAC: and Agree w/ Assess. and Plan Disposition: Standard PACU
[2023-12-09 10:46] LABS: INTERNATIONAL NORM RATIO 1.1 (0.9-1.1); Prothrombin Time 13.5 SEC (11.1-13.3)
--- NOTE | 2023-12-09 11:03 | P.HPSUR_ITS ---
Pre-Procedural Eval Section A - 24 Hr Update-Section A only Date of Service: 12/09/23 Section B - Complete if H&P > 30 days Chief Complaint: Gastrointestinal hemorrhage,cirrhosis of liver Relevant Family History (Specify if Yes): No Relevant Social History: None Present Medications: see Short Stay Collaborative assessment Medical History: Significant History (Hemorrhage of gastrointestinal tract, unspecified PAF (paroxysmal atrial fibrillation) Tubular adenoma of colon Low vitamin D level Atrial fibrillation Cirrhosis of liver Asthma Hepatitis B) History of Previous Operations: Relevant previous surgery/procedure and date(s) (History of 3 sections History of esophagogastroduodenoscopy (EGD) History of total abdominal hysterectomy and bilateral salpingo-oophorectomy Hx of colonoscopy) Allergies: Allergies Allergy/AdvReac Type Severity Reaction Status Date / Time rivaroxaban [From XARELTO] Allergy Intermediate GI BLEEDING Verified 12/09/23 09:55 SEAFOOD Allergy Intermediate RASH Uncoded 12/09/23 09:55 Review of Systems Sugical H&P ROS: Negative: Constitution, Cardiovascular, Respiratory, Neurological, Psychiatric, Hem-Onc, Allergic/Immunologic, Gastrointestinal, Genitourinary, Musculoskeletal, Integumentary, Endocrine and Eyes/Ears/N ose/Throat Exam Surgical H&P Exam: Normal: HEENT, Normal: Heart, Normal: Lungs, Normal: Extremities, Normal: Abdomen, Normal: Skin and Normal: Neurological Plan Diagnosis/Plan: Unchanged I have reviewed the history and physical and performed a pertinent physical examination on my patient. No changes have occurred unless specified. Time Spent With Patient Time: Total time managing care of this patient today ____ minutes.
--- NOTE | 2023-12-09 11:24 | W.PM.OPN ---
Operative Note Operative Note Date of Service: 12/09/23 Narrative: Procedure Description: EGD Indication: variceal screening Anesthesia: MAC FLEXIBLE TRANSORAL UPPER GASTROINTESTINAL ENDOSCOPY UPPER ENDOSCOPY Consent: Indications for the procedure and potential complications of bleeding, perforation, reaction to medications and missed diagnosis were discussed with the patient and informed consent was obtained. Instrument: Olympus GIF H 190 J mid size upper endoscope Monitoring: Vital signs and clinical assessment, continuous EKG monitoring, Pulse oximetry, Carbon Dioxide monitoring and blood pressure monitoring were done throughout the procedure. Procedure: The patient was placed in the left lateral decubitis position and pre-procedure medications were administered and a bite block was placed. The endoscope was inserted into the mouth and advanced under direct vision to the third part of duodenum. A careful inspection was made as the upper endoscope was withdrawn including a retroflexed examination of the proximal stomach; Findings and interventions are described below. Findings: Findings: Larynx:normal Esophagus: GE junction at 37 cm, diaphragm hiatus at 37 cm, one small flat variceal cord noted Stomach: mild erythema. Biopsies were obtained. Grade 2 flap valve on retroflexed examination of the cardia. No gastric varices seen Duodenum: Normal bulb and descending duodenum, Intervention: Biopsies as noted above Impression/Findings: gastritis, mild small flat varix PLAN: repeat EGD in 2-3 yrs or earlier if clinically indicated GERD precautions
[2023-12-09 11:30] VITALS: BP 93/52; PULSE 60; RESP 16; TEMP 36.1; O2SAT 95
[2023-12-09 11:45] VITALS: BP 125/72; PULSE 61; RESP 16; O2SAT 95
[2023-12-09 12:00] VITALS: BP 120/61; PULSE 60; RESP 14; O2SAT 96
[2023-12-09 12:15] VITALS: BP 125/73; PULSE 57; RESP 16; TEMP 36.1; O2SAT 97
== END 2023-12-09 12:48 | disposition home or self-care (01) ==
PROVIDERS: Nurse Practitioner; PCP Nurse Practitioner Primary Care; Visit Provider Internal Medicine Gastroenterology
PROC: 0DJ08ZZ Inspection of Upper Intestinal Tract, Via Natural or Artificial Opening Endoscopic (ICD-10-PCS; CPT 43235; principal; 2023-12-09 12:10)
DX: K92.2 Gastrointestinal hemorrhage, unspecified (principal); K74.60 Unspecified cirrhosis of liver; I85.00 Esophageal varices without bleeding; K29.50 Unspecified chronic gastritis without bleeding; K44.9 Diaphragmatic hernia without obstruction or gangrene; I10 Essential (primary) hypertension; I48.91 Unspecified atrial fibrillation; J45.909 Unspecified asthma, uncomplicated; B19.10 Unspecified viral hepatitis B without hepatic coma; E55.9 Vitamin D deficiency, unspecified; Z79.51 Long term (current) use of inhaled steroids; Z79.899 Other long term (current) drug therapy; Z88.8 Allergy status to other drugs, medicaments and biological substances; Z87.891 Personal history of nicotine dependence
CPT/HCPCS: 43239; 36415; 85027; 85610; 88305; 88342; J1596; J2704

== ENCOUNTER → 2023-12-09 09:05 | Outpatient (BNV) | payer MEDICAID, SELFPAY | PROVIDERS: PCP Nurse Practitioner Primary Care; Visit Provider Internal Medicine Gastroenterology | DX: K29.70 Gastritis, unspecified, without bleeding (principal); I85.00 Esophageal varices without bleeding | CPT/HCPCS: 43239 ==

== ENCOUNTER 2023-12-24 13:55 | Outpatient (AMB) | payer MEDICAID, SELFPAY ==
--- NOTE | 2023-12-24 14:13 | A.OFFVIS_ITS ---
Vital Signs 12/24/23 14:16 Height 4 ft 11 in Weight 177 lb 11.081 oz BMI 35.9 BP 110/70 Blood Pressure Location Lt brachial Position Sitting Pulse 88 Pulse Source Pulse Oximeter Intake Visit Reasons: 2 mth f/up Section Leader Required: No Accompanied by: Self / Same As Patient Allergies rivaroxaban [From XARELTO] Allergy (Intermediate, Verified 12/09/23 09:55) GI BLEEDING SEAFOOD Allergy (Intermediate, Uncoded 12/09/23 09:55) RASH Medication List - Last Reconciled 12/24/23 by Everett Rojas MD albuterol sulfate 90 mcg/actuation (ProAir HFA) 2 puffs PO Q4-6H PRN calcium carbonate-vitamin D3 600 mg-10 mcg (400 unit) 1 tab PO cholecalciferol (vitamin D3) 25 mcg PO QAM fluticasone propionate 110 mcg/actuation (Flovent HFA) 1 puff inhalation BID hydrochlorothiazide 25 mg PO QAM lidocaine 5% (Lidoderm) 1 - 2 patches topical DAILY PRN metoprolol tartrate 50 mg PO BID 90 days montelukast 10 mg PO BEDTIME tramadol 50 - 100 mg PO Q12H PRN HPI Comments Details: Walt returns for follow-up regarding paroxysmal atrial fibrillation. To recall, she was on a combination of flecainide and beta-blockers and was doing fine and well controlled. However, more recently, she has been feeling palpitations and EKG as well as Holter had shown evidence of recurrent atrial fibrillation. Then we stopped the flecainide and left only on beta-blockers. With regard to anticoagulation, she was on Xarelto till around 2017 when she had GI bleeding with severe anemia and hemoglobin of about 4.9. After that, she has not been any anticoagulation. We referred her back to GI for evaluation it seems she underwent endoscopy recently to clear her for anticoagulation. Still waiting to hear back from them. [facility] Medical History Hemorrhage of gastrointestinal tract, unspecified PAF (paroxysmal atrial fibrillation) Tubular adenoma of colon Low vitamin D level Atrial fibrillation Cirrhosis of liver Asthma Hepatitis B Surgical History History of esophagogastroduodenoscopy (EGD) Hx of colonoscopy History of total abdominal hysterectomy and bilateral salpingo-oophorectomy History of 3 sections Family History Father No problems noted. Mother No problems noted. 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 Review of Systems Const Denies chills, Denies fatigue, Denies fever(s), Denies weight gain and Denies weight loss ENT Denies dizziness Card Denies chest pain, Denies leg edema, Denies lightheadedness, Denies palpitations, Denies dyspnea on exertion, Denies orthopnea and Denies other Resp Denies cough and Denies dyspnea on exertion GI Denies hematochezia and Denies change in stool character Musc Denies abnormal gait, Denies muscle weakness, Denies numbness, Denies radiating pain into limb and Denies tingling Neuro Denies abnormal gait, Denies dizziness, Denies numbness and Denies tingling Endo Denies fatigue and Denies palpitations Physical Exam Vital Signs: Last Vital Signs Pulse 88 12/24/23 14:16 BP 110/70 12/24/23 14:16 BMI result Body Mass Index 35.9 Const General: comfortable and no acute distress Orientation/consciousness: patient oriented x3 HEENT Other: Unremarkable Head: Yes normal to inspection Neck Neck: Yes normal visual inspection Chest Chest palpation & inspection: normal inspection of the chest Resp Auscultation: clear to auscultation bilaterally Cardio Palpation: normal PMI Heart sounds: S1 normal heart sound present, S2 normal heart sound present, no gallops, no murmurs and no rubs GI Palpation (GI): Soft to palpation Back/Spine/Pelvis Other: unremarkable Skin General skin exam: no rashes or lesions noted Neuro General: patient oriented x3 Extrem General: Yes normal to inspection Psych Mental Status: mental status grossly normal Office Procedures EKG Details: EKG with atrial fibrillation rate of 97/Min. [id number], Complete Assessment & Plan Assessment & Plan (1) PAF (paroxysmal atrial fibrillation): Code(s): I48.0 - Paroxysmal atrial fibrillation Category: Medical Plan: In the recent Holter, underlying rhythm is sinus at 65/Min. Intermittent atrial fibrillation burden of 11%. One post-conversion pause of 2.6 seconds at 08:30 hours. In the last 3 or so EKGs, she has either in atrial fibrillation or in sinus- overall, seems to be going in and out of atrial fibrillation. As she was going into atrial fibrillation spite of flecainide, it has been stopped. Continue beta-blockers higher dose. We can add digoxin for the time being. Has a history of cirrhosis/GI bleed/anemia. Now underwent endoscopy. Findings include mild gastritis and a small flat varix. Awaiting clearance to resume anticoagulation. We will refer her to EP for further evaluation. [place] would be atrial fibrillation ablation, short term anticoagulation and then use Watchman device for long-term thromboembolic prophylaxis. We can let EP evaluated decide. Referred to Dr. Fernández. (2) Essential hypertension: Code(s): I10 - Essential (primary) hypertension Category: Medical Plan: Stable. No changes. Orders: Orders Digoxin 4 Weeks I48.0 - Paroxysmal atrial fibrillation Referrals Cardiac Electrophysiology Referral I48.0 - Paroxysmal atrial fibrillation Medications: New digoxin 125 mcg PO DAILY 90 tabs 1RF Coding Level of Care Code Est Pt Level 4 (74988) Diagnoses PAF (paroxysmal atrial fibrillation) I48.0 Essential hypertension I10 CPT Codes EKG - CPT: 84686-[id number], Complete ([id number])
[2023-12-24 14:16] VITALS: BP 110/70; PULSE 88; BMI 35.9
== END 2023-12-24 14:40 | disposition home or self-care (01) ==
PROVIDERS: PCP Nurse Practitioner Primary Care; Visit Provider Internal Medicine
DX: I48.0 Paroxysmal atrial fibrillation (principal); I10 Essential (primary) hypertension
CPT/HCPCS: 93010; 99214

== ENCOUNTER → 2023-12-24 13:55 | Outpatient (BNVA) | payer MEDICAID, SELFPAY | PROVIDERS: PCP Nurse Practitioner Primary Care; Visit Provider Internal Medicine | DX: I48.0 Paroxysmal atrial fibrillation (principal); I10 Essential (primary) hypertension | CPT/HCPCS: 93005; 99212 ==

== ENCOUNTER 2023-12-29 11:12 | Emergency (ER) | payer MEDICAID, SELFPAY ==
--- NOTE | ~2023-12-29 | US_ITS ---
EXAMINATION: US VENOUS ULTRASOUND WITH DOPPLER LOWER EXTREMITY, LEFT CLINICAL INFORMATION: Pain COMPARISON: None available. TECHNIQUE: Ultrasound of the deep veins is performed from the hip to the calf with compression sonography and color and pulse Doppler assessment. Spectral analysis with color-flow imaging is performed. FINDINGS: There is normal venous compression and respiratory variation and augmented flow. The visualized common femoral vein, superficial femoral vein, profunda femoral vein, popliteal vein, and the trifurcation region shows no evidence of deep venous thrombosis. There is no significant popliteal fossa cyst. If the patient's symptoms persist, followup ultrasound in 5 days 7 days might be of value to exclude proximal propagation from a non-visualized calf vein. US/US venous duplex LE LT IMPRESSION: No DVT demonstrated in the left lower extremity.
--- NOTE | ~2023-12-29 | CT_ITS ---
EXAMINATION: CT CHEST PE STUDY CLINICAL INFORMATION: Dyspnea. Palpitations. COMPARISON: Chest x-ray dated 12/29/2023. CT scan of the abdomen and pelvis dated 08/15/2017. TECHNIQUE: Prior to contrast administration, localization images were obtained. After the administration of 65 mL of intravenous Omnipaque 350, multidetector CT volume acquisition of the chest was performed. 3-D postprocessing was performed with multiplanar reconstructions and MIP images obtained at the acquisition workstation under concurrent physician supervision. This CT examination was performed using dose optimization techniques as appropriate, variously including the following: *Automated exposure control *Adjustment of mA and/or kV according to patient size (this includes techniques or standardized protocols for targeted exams where dose is matched to indication/reason for exam; i.e. extremities or head) *Use of iterative reconstruction technique DLP: 230 mGy-cm. FINDINGS: Pulmonary arteries: The bolus timing on this study was acceptable for visualization of the pulmonary arterial tree. There are no central or segmental pulmonary emboli. Lungs: Scattered areas of linear and dependent atelectasis in the lungs bilaterally. No pulmonary nodules, masses, pleural effusion or pneumothorax. The central airways are patent. Aorta and heart: The heart is normal in size. The aorta is normal. There is no pericardial effusion, No ventricular septal bowing seen to suggest right heart strain. Lymphatic structures: There is no lymphadenopathy. Upper abdomen: Limited evaluation of the upper abdominal viscera demonstrates a nodular surface contour of the liver with hypertrophy of the caudate lobe and lateral segment, consistent with liver cirrhosis. There is a ill-defined 0.8 cm low-attenuation region seen in the lateral periphery of the right lobe of the liver (series 5, image 44), incompletely characterized, but consistent with a benign finding, given the long-term stability dating back to 08/15/2017 small calcified granuloma in the spleen and small calcified gallstones within an otherwise unremarkable appearing gallbladder. No suspicious focal abnormality. Mild reflux of contrast into the IVC, likely due to force of contrast injection. No reflux of contrast into the hepatic veins to suggest elevated right heart pressures. Bones: Multilevel mild vertebral spondylosis. Osteopenia. CT/CT angio chest PE protocol IMPRESSION: * No evidence of pulmonary embolism. * Scattered areas of linear and dependent atelectasis in the lungs bilaterally. * Findings of liver cirrhosis and cholelithiasis. VTE: Negative.
--- NOTE | ~2023-12-29 | XR_ITS ---
EXAMINATION: XR chest 2V CLINICAL INFORMATION: Reason for Exam sob COMPARISON: April 2023 TECHNIQUE: Single portable frontal view. Tubes and lines: None Lungs and pleura: No radiographic evidence of consolidation pneumonia. Heart and mediastinum: The mediastinum is within normal limits.. Bones/soft tissue: Skeletal structures included are normal for patient's age. XR/XR chest 2V IMPRESSION: No radiographic evidence of acute cardiopulmonary disease.
--- NOTE | 2023-12-29 11:14 | ECG_ITS ---
Test Reason : palpitation Blood Pressure : / mmHG Vent. Rate : 065 BPM Atrial Rate : 065 BPM P-R Int : 156 ms QRS Dur : 080 ms QT Int : 398 ms P-R-T Axes : 045 021 023 degrees QTc Int : 413 ms Normal sinus rhythm Normal ECG When compared with ECG of 04-APR-2021 07:36, Sinus rhythm has replaced Atrial fibrillation Vent. rate has decreased BY 49 BPM Non-specific change in ST segment in Inferior leads Referred By: Zenaida Jones Electronically Signed By:DARINEL MARINO
[2023-12-29 11:20] VITALS: BP 143/63; PULSE 60; RESP 16; TEMP 36.9; O2SAT 99; BMI 35.4
--- NOTE | 2023-12-29 11:20 | ED_ITS ---
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 [facility]/o worsening orthopnea, palpitations, heart racing last night no chest pain but she also notes leg swelling and pain. She has not started her eliquis yet. Her dyspnea and orthopnea has been a month or so. No cough or fevers. MD complaint: palpitations (dyspnea) Onset (ago): month(s) Duration: intermittent Severity: moderate Context: occurred during rest and occurred during exertion Arrhythmia history: atrial fibrillation Associated symptoms: shortness of breath Treatments prior to arrival: beta-mayi Related Data Home Medications ?Medication ?Instructions ?Recorded ?Confirmed montelukast 10 mg tablet 10 mg PO BEDTIME 01/31/21 12/24/23 albuterol sulfate 90 mcg/actuation 2 puff PO Q4-6H PRN sob 05/15/21 12/24/23 aerosol inhaler (ProAir HFA) fluticasone propionate 110 1 puff inhalation BID 05/15/21 12/24/23 mcg/actuation HFA aerosol inhaler (Flovent HFA) calcium carbonate 600 mg-vitamin 1 tab PO 01/22/22 12/24/23 D3 10 mcg (400 unit) tablet lidocaine 5 % topical patch 1 - 2 patch topical DAILY PRN pain 01/22/22 12/24/23 (Lidoderm) tramadol 50 mg tablet 50 - 100 mg PO Q12H PRN Pain 01/22/22 12/24/23 (Scale Score 7-10) Previous Rx's ?Medication ?Instructions ?Recorded hydrochlorothiazide 25 mg tablet 25 mg PO QAM #90 tabs 07/16/23 cholecalciferol (vitamin D3) 25 25 mcg PO QAM #90 tabs 09/11/23 mcg (1,000 unit) tablet metoprolol tartrate 50 mg tablet 50 mg PO BID 90 days #180 tabs 11/25/23 apixaban 5 mg tablet (Eliquis) 5 mg PO BID 90 days #180 tabs 12/24/23 digoxin 125 mcg (0.125 mg) tablet 125 mcg PO DAILY #90 tabs 12/24/23 Allergies Allergy/AdvReac Type Severity Reaction Status Date / Time rivaroxaban [From XARELTO] Allergy Intermediate GI BLEEDING Verified 12/29/23 11:24 SEAFOOD Allergy Intermediate RASH Uncoded 12/09/23 09:55 Review of Systems 2 Review of Systems: Constitutional : No Fever, No Chills ENT/Mouth : No sore throat, No Rhinorrhea, No Swallowing Difficulty Eyes: No Eye Pain, No Swelling, No Redness Cardiovascular : No Chest Pain, positive SOB, No Orthopnea, positive Edema, pos palpitations Respiratory : No Cough, No Sputum, No Wheezing, positive dyspnea Gastrointestinal : No Nausea, No Vomiting, No Diarrhea, No abdominal Pain, No Hematochezia, No Melena Genitourinary : No Dysuria, No Urinary Frequency, No Hematuria Musculoskeletal : No joint pain, No Myalgias Skin : No Skin Lesions, No rash Neuro : No Weakness, No Numbness, No Dizziness, No Headache All other systems reviewed and are negative PMFSH Past Medical History Attestation statement: The following information was validated with the patient. Source: old records reviewed Medical History Hemorrhage of gastrointestinal tract, unspecified PAF (paroxysmal atrial fibrillation) Tubular adenoma of colon Low vitamin D level Atrial fibrillation Cirrhosis of liver Asthma Hepatitis B Surgical History History of esophagogastroduodenoscopy (EGD) Hx of colonoscopy History of total abdominal hysterectomy and bilateral salpingo-oophorectomy History of 3 sections Family History Family History Father No problems noted. Mother No problems noted. 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 Oriented X3. No acute distress. Eyes: Pupils equal, round and reactive to light. ENT: Pharynx normal. Neck: Normal inspection. Neck supple. CVS: Normal heart rate and rhythm. Pulses normal. Respiratory: No respiratory distress. Breath sounds normal. Abdomen: Soft and nontender. Skin: Skin warm and dry. Normal skin color. Normal skin turgor. Extremities: No lower extremity edema. reports L calf ttp but no swelling seen Neuro: Oriented X 3. No motor deficit. No sensory deficit. Course Course Course Narrative: This is a Rapid Medical Exam performed in triage by Zenaida Jones PA-C. Full HPI, ROS and PE to be performed by primary ED provider. 68 year-old Fw/ PMHx A.fib not on AC due to GI bleed, HTN, cirrhosis presenting to the ED c/o palpitations, CP & SOB x last night. Also reports LLE pain. denies fever PE: tachypneic, lungs CTA, talking in complete sentences, +1 LLE edema. Plan: EKG, labs, CXR, viral testing, US venous duplex Reevaluation(s) Reevaluation #1: ddimer elevated CTA ordered signed out to Dr. Juárez went into rapid afib on DC Medical Decision Making Medical Decision Making MDM Narrative: 68 yo female with PMH of afib on bblocker, HTN, GI bleed in past just had EGD showing gastritis, cirrhosis recent issues with recurrent afib and cards just prescribed digoxin and eliquis but she has not started it yet. She reports VILLA and orthopnea ECHO in September normal no sig valvular issue and EF 60% with normal diastolic function at this time she denies GIB symptoms infectious symptoms will obtain CXR, BNP, basic labs, troponin, place on tele - DVT study of LLE ordered as well. Differential Diagnosis Differential Diagnoses: The differential diagnosis associated with the presentation includes DVT, anemia, CHF, anxiety, afib Admission/Observation Consideration of admission/observation: Escalation of care including admission/observation considered negative CTA no signs of CHF, negative troponin stable for DC at this point can start on her eliquis and digoxin Lab Data MDM Lab Attestation statement: I reviewed the patient's lab results. 12/29/23 12:28 12/29/23 12:28 Labs: Lab Results 12/29/23 Range/Units 12:28 WBC 3.4 L (4.8-10.8) X10*3/uL RBC 4.13 L (4.20-5.50) X10*6/uL Hgb 12.6 (12.0-16.0) g/dl Hct 37.5 (37.0-47.0) % MCV 90.8 (80.0-98.0) fL MCH 30.5 (27.0-33.0) pg MCHC 33.6 (31.0-35.0) g/dl RDW 14.8 (11.0-16.0) % Plt Count 122 L (160-400) X10*3/uL MPV 9.8 (9.4-12.3) fL Immature Gran % (Auto) 0.3 (0.0-0.4) % Neut % (Auto) 62.8 (45-73) % Lymph % (Auto) 26.9 (20-40) % [place] % (Auto) 7.6 (2-11) % Eos % (Auto) 1.8 (0-4) % Baso % (Auto) 0.6 (0-2) % Lymph # (Auto) 0.9 L (1.2-4.9) X10*3/uL [place] # (Auto) 0.3 (0.1-1.2) X10*3/uL Eos # (Auto) 0.1 (0.0-0.4) X10*3/uL Baso # (Auto) 0.0 (0.0-0.2) X10*3/uL Abs Immat Gran (auto) 0.01 (0.00-0.03) X10*3/uL Absolute Neuts (auto) 2.2 (2.0-8.3) x10*3/uL Absolute Nucleated RBC 0.000 (0.0-0.012) X10*3/uL Nucleated RBC % (auto) 0.0 (0.0-0.2) /100WBC PT 14.0 H (11.1-13.3) SEC INR 1.2 H (0.9-1.1) D-Dimer High Sensitivty 414 NG/ML Sodium 142 (135-145) mmol/L Potassium 4.0 (3.3-5.1) mmol/L Chloride 104 (96-108) mmol/L Carbon Dioxide 30 H (22-29) mmol/L Anion Gap 12 (12-20) BUN 17 H (9-16) mg/dL Creatinine 0.91 (0.5-1.4) mg/dL Estim Creat Clear Calc 52.4 Estimated GFR > 60 Random Glucose 92 (60-115) mg/dL Calcium 10.3 H (8.4-10.2) mg/dL Magnesium 1.6 (1.6-2.6) mg/dL Total Bilirubin 0.9 (0.0-1.0) mg/dL Direct Bilirubin 0.3 (0.0-0.5) mg/dL AST 28 (5-31) U/L ALT 21 (0-31) U/L Alkaline Phosphatase 47 (39-117) U/L Troponin I High Sens 5.8 (<3.5-17.0) ng/L B-Natriuretic Peptide 132 H (<100) pg/mL Total Protein 7.6 (6.5-8.0) g/dL Albumin 3.8 (3.5-5.0) g/dL Hold Red Top See Note Influenza Type A (PCR) NEGATIVE (Negative) Influenza Type B (PCR) NEGATIVE (Negative) RSV RNA Qual (PCR) NEGATIVE (Negative) SARS-CoV-2 RNA (RT-PCR) NEGATIVE (Negative) Independent Interpretation I performed an independent interpretation of an: EKG, Plain X-Ray (no pneumonia), Ultrasound (no DVT) and CT Scan (no PE or pneumonia) Interpretation: Rate: 65 Rhythm: NSR [place]: normal Normal P waves. Normal BC. Normal QRS complex. ST T wave : inverted t waves III qTC: 413 prior studies: no acute ischemia The study has been interpreted contemporaneously by me. . Radiology Impression Discussion of test interpretation with radiology: I have reviewed the radiologist's reading. External Record Review External record reviewed: Office record Discharge Plan Discharge Clinical Impression: Dyspnea on exertion Patient Disposition: Home, Self-Care Instructions: Dyspnea (ED) Additional Instructions: no acute findings such as anemia no signs of heart attack no blood clots in legs no signs of fluids in the lungs no blood clots in the legs return for any worsening symptoms please take your medications - start the digoxin and eliquis Prescriptions: No Action hydrochlorothiazide 25 mg tablet 25 mg PO QAM Qty: 90 3RF cholecalciferol (vitamin D3) 25 mcg (1,000 unit) tablet 25 mcg PO QAM Qty: 90 2RF Eliquis 5 mg tablet 5 mg PO BID 90 Days Qty: 180 3RF montelukast 10 mg tablet 10 mg PO BEDTIME Flovent HFA 110 mcg/actuation HFA aerosol inhaler 1 puff inhalation BID albuterol sulfate [ProAir HFA] 90 mcg/actuation HFA aerosol inhaler 2 puff PO Q4-6H PRN (Reason: sob) lidocaine [Lidoderm] 5 % adhesive patch,medicated 1 - 2 patch topical DAILY PRN (Reason: pain) calcium carbonate-vitamin D3 600 mg-10 mcg (400 unit) tablet 1 tab PO tramadol 50 mg tablet 50 - 100 mg PO Q12H PRN (Reason: Pain (Scale Score 7-10)) metoprolol tartrate 50 mg tablet 50 mg PO BID 90 Days Qty: 180 3RF digoxin 125 mcg (0.125 mg) tablet 125 mcg PO DAILY Qty: 90 1RF Print Language: Azerbaijani
[2023-12-29 12:36] VITALS: BP 126/99; PULSE 51; RESP 16; TEMP 36.9; O2SAT 97
[2023-12-29 12:40] LABS: MANUAL DIFF FLAG NO
[2023-12-29 12:44] LABS: Basophils Percent Auto 0.6 % (0-2); Eosinophils Absolute Auto 0.1 X10*3/uL (0.0-0.4); Eosinophils Percent Auto 1.8 % (0-4); Hematocrit 37.5 % (37.0-47.0); Hemoglobin 12.6 g/dl (12.0-16.0); Imm Gran Abs Auto 0.01 X10*3/uL (0.00-0.03); Imm Gran Pct Auto 0.3 % (0.0-0.4); Lymphocytes Absolute Auto 0.9 X10*3/uL (1.2-4.9); Lymphocytes Percent Auto 26.9 % (20-40); Mean Corpuscular HGB Conc 33.6 g/dl (31.0-35.0); Mean Corpuscular Hemoglobin 30.5 pg (27.0-33.0); Mean Corpuscular Volume 90.8 fL (80.0-98.0); Mean Platelet Volume 9.8 fL (9.4-12.3); Monocytes Absolute Auto 0.3 X10*3/uL (0.1-1.2); Monocytes Percent Auto 7.6 % (2-11); Neutrophils Absolute Auto 2.2 x10*3/uL (2.0-8.3); Neutrophils Percent Auto 62.8 % (45-73); Platelet Count 122 X10*3/uL (160-400); Red Blood Count 4.13 X10*6/uL (4.20-5.50); Red Cell Distribution Width 14.8 % (11.0-16.0); White Blood Count 3.4 X10*3/uL (4.8-10.8)
[2023-12-29 12:47] LABS: INTERNATIONAL NORM RATIO 1.2 (0.9-1.1)
[2023-12-29 12:59] LABS: Alanine Aminotransferase 21 U/L (0-31); Albumin Level 3.8 g/dL (3.5-5.0); Alkaline Phosphatase 47 U/L (39-117); Anion Gap 12 (12-20); Aspartate Amino Transferase 28 U/L (5-31); Bilirubin Direct 0.3 mg/dL (0.0-0.5); Bilirubin Total 0.9 mg/dL (0.0-1.0); Blood Urea Nitrogen 17 mg/dL (9-16); Calcium 10.3 mg/dL (8.4-10.2); Carbon Dioxide 30 mmol/L (22-29); Chloride 104 mmol/L (96-108); Creatinine Clr Calc Pharmacy 52.4; Estimated Glomerular Filt Rate > 60; Glucose Random 92 mg/dL (60-115); Magnesium 1.6 mg/dL (1.6-2.6); Sodium 142 mmol/L (135-145); Total Protein 7.6 g/dL (6.5-8.0)
[2023-12-29 13:01] LABS: B Type Natriuretic Peptide 132 pg/mL (<100)
[2023-12-29 13:06] LABS: Troponin-I High Sensitivity 5.8 ng/L (<3.5-17.0)
[2023-12-29 13:22] LABS: Influenza A PCR NEGATIVE (Negative); Influenza B PCR NEGATIVE (Negative); Resp Syncy Virus RNA Qual PCR NEGATIVE (Negative); SARS COV2 PCR INHOUSE NEGATIVE (Negative)
[2023-12-29 13:58] LABS: D Dimer High Sensitivity 414 NG/ML
[2023-12-29 15:22] VITALS: BP 142/88; PULSE 105; RESP 18; O2SAT 99
[2023-12-29] MEDS: Metoprolol Tartrate 5 MG/5 ML VIAL IVPUSH (16:54)
[2023-12-29 17:01] VITALS: BP 138/82; PULSE 109; RESP 20; TEMP 36.6
[2023-12-29 18:04] VITALS: BP 126/65; PULSE 92; RESP 12; TEMP 36.5; O2SAT 98
== END 2023-12-29 18:05 | disposition home or self-care (01) ==
PROVIDERS: Emergency Medicine; Physician Assistant; Emergency Provider Emergency Medicine
DX: R07.89 Other chest pain (principal); I49.9 Cardiac arrhythmia, unspecified; I48.91 Unspecified atrial fibrillation; R06.02 Shortness of breath; I10 Essential (primary) hypertension; R60.0 Localized edema; Z03.818 Encounter for observation for suspected exposure to other biological agents ruled out; Z79.899 Other long term (current) drug therapy
CPT/HCPCS: 0241U; 71046; 71275; 80048; 80076; 83735; 83880; 84484; 85025; 85379; 85610; 93005; 93971; 96374; 99284; 99285

== ENCOUNTER 2023-12-30 14:38 | Outpatient (AMB) | payer MEDICAID, SELFPAY ==
--- NOTE | 2023-12-30 14:55 | A.OFFVIS_ITS ---
Vital Signs 12/30/23 15:01 Height 4 ft 11 in Weight 174 lb 2.643 oz BMI 35.2 BP 117/68 Blood Pressure Location Lt brachial Position Sitting Pulse 59 Intake Visit Reasons: f/u colonoscopy Intake Note: Walt presents in the office as a follow up colonoscopy. CC: She states that yesterday she was in the ED due to her chest pains and palpatations. Left foot hurts. She states that she was given a new heart medication and she has not started it yet. 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 RECAP: Had been seeing Dr austin for cirrhosis, presumed due to CARTWRIGHT or prior Hep C (treated 2015) never been heavy drinker she got the covid vaccine MELD 9 in the past Hep C serology pos but PCR was negative MRI 07/2021- cirrhosis, gallstones EGD/colonoscopy-09/2021- x 1 varix noted, H pylori pos and treated with levo, amoxil and pantoprazole, TA removed EGD: 12/03-- flat varix INTERIM: she had some palpt yesterday and went to ED was d/c'ed home no abdominal pain no nausea or vomiting she has no confusion, memory is good no abdominal distention no melena or rectal bleeding most recent MELD 3.0--8 EXAM: GENERAL: The patient is well developed and nontoxic. VITAL SIGNS:see workflow HEENT: Nonicteric sclerae, PERRLA, EOMI. Oropharynx clear. Moist mucous membranes. Conjunctivae appear well perfused. No thyroid mass. CHEST: Chest wall is nontender. HEART: Regular rate and rhythm without murmurs. LUNGS: Clear to auscultation bilaterally. ABDOMEN: Soft, positive bowel sounds, nontender, no organomegaly.no flank tenderness SKIN: No rash, no excessive bruising, petechiae, or purpura. NEUROLOGIC: Cranial nerves II-XII intact without motor/sensory deficit. A/P: 1. Cirrhosis, compensated, prob CARTWRIGHT related or from prior Hep C--MELD Na--9 2. hx of TA 3. H pylori s/p treatment--cured plan; 1/ Recheck labs next visit 2/ US screening for HCC now--ordered 3/ varices--repeat EGD, in 2-3 yr--- 4/ HE-no overt evidence 5/ ascites: no evidence of ascites on exam 6/ HM: needs Hep B vaccination, take vit D and MV PFSH Medical History Hemorrhage of gastrointestinal tract, unspecified PAF (paroxysmal atrial fibrillation) Tubular adenoma of colon Low vitamin D level Atrial fibrillation Cirrhosis of liver Asthma Hepatitis B Surgical History History of esophagogastroduodenoscopy (EGD) Hx of colonoscopy History of total abdominal hysterectomy and bilateral salpingo-oophorectomy History of 3 sections Family History Father No problems noted. Mother No problems noted. 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
[2023-12-30 15:01] VITALS: BP 117/68; PULSE 59; BMI 35.2
== END 2023-12-30 15:30 | disposition home or self-care (01) ==
PROVIDERS: PCP Nurse Practitioner Primary Care; Visit Provider Internal Medicine Gastroenterology
DX: K74.60 Unspecified cirrhosis of liver (principal)
CPT/HCPCS: 99214

== ENCOUNTER → 2023-12-30 14:38 | Outpatient (BNVA) | payer MEDICAID, SELFPAY | PROVIDERS: PCP Nurse Practitioner Primary Care; Visit Provider Internal Medicine Gastroenterology | DX: K74.60 Unspecified cirrhosis of liver (principal) | CPT/HCPCS: 99212 ==

== ENCOUNTER 2023-12-31 19:01 | Emergency (ER) | payer MEDICAID, SELFPAY ==
--- NOTE | ~2023-12-31 | CT_ITS ---
EXAMINATION: CT CERVICAL SPINE WITHOUT CONTRAST CLINICAL INFORMATION: Trauma. COMPARISON: CT cervical spine dated 01/28/2020. TECHNIQUE: Noncontrast computed tomography of the cervical spine was performed. This CT examination was performed using dose optimization techniques as appropriate, variously including the following: *Automated exposure control *Adjustment of mA and/or kV according to patient size (this includes techniques or standardized protocols for targeted exams where dose is matched to indication/reason for exam; i.e. extremities or head) *Use of iterative reconstruction technique DLP: 983 mGy-cm FINDINGS: There is trace anterolisthesis of C2 in relation to C3, unchanged when compared with the prior examination. The vertebral bodies and posterior elements are otherwise well aligned. Vertebral body heights are preserved. There is degenerative disc disease at C3-4, C4-5, and C5-C6 characterized by intervertebral disc space narrowing, endplate sclerosis and cyst formation, and marginal osteophytosis. The degree of degenerative disc disease appears similar to that seen on the prior examination. The prevertebral soft tissue is normal in appearance. The C1-C2 relationship is anatomic. The dens is intact. Paraspinal soft tissue is normal in appearance. There is no acute cervical spine fracture. The visualized lung apices are clear. The thyroid gland is normal in appearance. CT/CT cervical spine wo IV con IMPRESSION: No acute osseous cervical spine abnormality. Degenerative disc disease from C3-4 through C5-6 as described above. Fleischner guidelines were followed. Electronically signed by: Drew Chambers DO 12/31/2023 10:08 PM EDT
--- NOTE | ~2023-12-31 | CT_ITS ---
EXAMINATION: CT HEAD WITHOUT CONTRAST CLINICAL INFORMATION: Trauma. COMPARISON: CT head dated 01/28/2020. TECHNIQUE: Contiguous axial imaging was performed from the skull base to vertex without intravenous administration of contrast. This CT examination was performed using dose optimization techniques as appropriate, variously including the following: *Automated exposure control *Adjustment of mA and/or kV according to patient size (this includes techniques or standardized protocols for targeted exams where dose is matched to indication/reason for exam; i.e. extremities or head) *Use of iterative reconstruction technique DLP: 983 mGy-cm FINDINGS: There is no acute intracranial hemorrhage. There is no evidence of acute/subacute cerebral or cerebellar infarction. There is no midline shift. There is no mass effect. There is no extra-axial fluid collection. The ventricles are normal in size. The orbits are symmetric and within normal limits. The calvarium is intact. There is inferior right maxillary sinus mucosal thickening. Visualized paranasal sinuses are otherwise clear. The mastoid air cells are well-aerated. CT/CT head/brain wo IV con IMPRESSION: No acute intracranial abnormality. Electronically signed by: Drew Chambers DO 12/31/2023 09:55 PM EDT
[2023-12-31 19:07] VITALS: BP 124/65; BP 144/84; PULSE 58; PULSE 62; RESP 17; TEMP 36.7; O2SAT 98; O2SAT 99; BMI 37.6
[2023-12-31] MEDS: traMADoL HCL 50 MG TABLET PO (19:45)
--- NOTE | 2023-12-31 19:56 | PC.NURSE ---
pt biba from home, a&ox4, respirations even and unlabored. pt [facility] 545[facility], pt reports slipping on something on the floor and falling onto knees, pt reports she tried to stop the fall with her right hand. pt also reports head strike. pt now reporting bilateral knee pain, neck pain, headache and right wrist pain. pt reports she is on thinners for afib.
[2023-12-31 20:57] VITALS: BP 114/54; PULSE 59; RESP 15; TEMP 36.8; O2SAT 97
[2023-12-31 22:35] VITALS: BP 112/66; PULSE 64; RESP 15; TEMP 36.8; O2SAT 94
--- NOTE | 2023-12-31 23:30 | ED_ITS ---
HPI - Fall General Chief Complaint: Fall Stated Complaint: FALL 1 HR AGO Time Seen by Provider: 12/31/23 19:11 Source: patient Limitations: no limitations History of Present Illness ED Provider: Sabrina Garcia PA-C HPI Narrative: 68-year-old woman with history of paroxysmal AFib currently anticoagulated, prior GI bleed, hypertension, cirrhosis of the liver presents after a fall. Patient states she was walking out of [employer], she caught her shoe on the door casing, and subsequently fell forward, to the right side, striking her forehead on the ground. Patient was able to pick herself up off the ground after the fall and was ambulatory. Patient now complains of full body pain. Denies headache, dizziness, nausea, vomiting. Related Data Home Medications ?Medication ?Instructions ?Recorded ?Confirmed montelukast 10 mg tablet 10 mg PO BEDTIME 01/31/21 12/24/23 albuterol sulfate 90 mcg/actuation 2 puff PO Q4-6H PRN sob 05/15/21 12/24/23 aerosol inhaler (ProAir HFA) fluticasone propionate 110 1 puff inhalation BID 05/15/21 12/24/23 mcg/actuation HFA aerosol inhaler (Flovent HFA) calcium carbonate 600 mg-vitamin 1 tab PO 01/22/22 12/24/23 D3 10 mcg (400 unit) tablet lidocaine 5 % topical patch 1 - 2 patch topical DAILY PRN pain 01/22/22 12/24/23 (Lidoderm) tramadol 50 mg tablet 50 - 100 mg PO Q12H PRN Pain 01/22/22 12/24/23 (Scale Score 7-10) Previous Rx's ?Medication ?Instructions ?Recorded hydrochlorothiazide 25 mg tablet 25 mg PO QAM #90 tabs 07/16/23 cholecalciferol (vitamin D3) 25 25 mcg PO QAM #90 tabs 09/11/23 mcg (1,000 unit) tablet metoprolol tartrate 50 mg tablet 50 mg PO BID 90 days #180 tabs 11/25/23 apixaban 5 mg tablet (Eliquis) 5 mg PO BID 90 days #180 tabs 12/24/23 digoxin 125 mcg (0.125 mg) tablet 125 mcg PO DAILY #90 tabs 12/24/23 Allergies Allergy/AdvReac Type Severity Reaction Status Date / Time rivaroxaban [From XARELTO] Allergy Intermediate GI BLEEDING Verified 12/31/23 19:11 SEAFOOD Allergy Intermediate RASH Uncoded 12/31/23 19:11 Review of Systems Review of Systems: No all other systems are reviewed and are negative Constitutional: Constitutional: Denies fever(s) and Denies headache(s) ENT: Denies headache(s) Cardiovascular: Cardiovascular: Denies chest pain, Denies syncope, Denies lightheadedness and Denies dyspnea Respiratory: Respiratory: Denies dyspnea Gastrointestinal: Gastrointestinal: Denies nausea Neurologic: Denies syncope and Denies headache(s) [facility] Past Medical History Attestation statement: The following information was validated with the patient. Medical History Hemorrhage of gastrointestinal tract, unspecified PAF (paroxysmal atrial fibrillation) Tubular adenoma of colon Low vitamin D level Atrial fibrillation Cirrhosis of liver Asthma Hepatitis B Surgical History History of esophagogastroduodenoscopy (EGD) Hx of colonoscopy History of total abdominal hysterectomy and bilateral salpingo-oophorectomy History of 3 sections Family History Family History Father No problems noted. Mother No problems noted. 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 Physical Exam Vital Signs: Vital Signs: Last Vital Signs Temp 98.2 F 12/31/23 22:35 Pulse 64 12/31/23 22:35 Resp 15 12/31/23 22:35 BP 112/66 12/31/23 22:35 Pulse Ox 94 12/31/23 22:35 O2 Del Method Room Air 12/31/23 22:35 BMI result Body Mass Index 37.6 Const: Other: Alert well in appearance, no signs of head trauma on exam Orientation/consciousness: patient oriented x3 Neck: Other: Soft, supple, full range of motion, no midline tenderness Resp: Other: Nonlabored respirations Cardio: Other: Normal peripheral perfusion Skin: Other: Warm dry no rash Neuro: General: patient oriented x3, no focal motor deficits and CN's II-XI intact bilaterally Extrem: Other: Moving all extremities independently, no deformity, full range of motion Psych: Other: Calm cooperative Medications Administered Discontinued Medications Generic Name Dose Route Start Last Admin Trade Name Marsha PRN Reason Stop Dose Admin Tramadol HCl 50 mg 12/31/23 19:17 12/31/23 19:45 Tramadol Hcl 50 Mg Tablet PO 12/31/23 19:18 50 mg ONCE ONE Administration Medical Decision Making Medical Decision Making [facility] Narrative: 68-year-old woman with history of paroxysmal AFib currently anticoagulated, prior GI bleed, hypertension, cirrhosis of the liver presents after a fall. Patient states she was walking out of [employer], she caught her shoe on the door casing, and subsequently fell forward, to the right side, striking her forehead on the ground. Patient was able to pick herself up off the ground after the fall and was ambulatory. Patient now complains of full body pain. Denies headache, dizziness, nausea, vomiting. Problem: Age, anticoagulated History: Per patient I have considered the following differential diagnoses: Intracranial hemorrhage, cervical spine injury, musculoskeletal strain, fracture, dislocation Plan: Because of the use of the thinners, I am scanning her head and neck. It is reassuring that she is neurologically intact, she is not altered and not actively vomiting to suggest an intracranial hemorrhage. Her neck exam was also benign. She does not require imaging of any extremity, no deformity, she has full range of motion. She takes tramadol at home for pain, we will give her a dose here. Holding on ordering labs, if she has sustained an acute injury, we will do so then I have independently reviewed the following tests: CT brain and cervical spine:EXAMINATION: CT HEAD WITHOUT CONTRAST CLINICAL INFORMATION: Trauma. COMPARISON: CT head dated 01/28/2020. TECHNIQUE: Contiguous axial imaging was performed from the skull base to vertex without intravenous administration of contrast. This CT examination was performed using dose optimization techniques as appropriate, variously including the following: *Automated exposure control *Adjustment of mA and/or kV according to patient size (this includes techniques or standardized protocols for targeted exams where dose is matched to indication/reason for exam; i.e. extremities or head) *Use of iterative reconstruction technique DLP: 983 mGy-cm FINDINGS: There is no acute intracranial hemorrhage. There is no evidence of acute/subacute cerebral or cerebellar infarction. There is no midline shift. There is no mass effect. There is no extra-axial fluid collection. The ventricles are normal in size. The orbits are symmetric and within normal limits. The calvarium is intact. There is inferior right maxillary sinus mucosal thickening. Visualized paranasal sinuses are otherwise clear. The mastoid air cells are well-aerated. CT/CT head/brain wo IV con IMPRESSION: No acute intracranial abnormality. [place] [id number] CT Scan Report Signed Patient: Walt Rajan MR#: [id number] : 1955 Acct:[id number] Age/Sex: 68 / F ADM Date: 12/31/23 Loc: HO.ED Attending Dr: Ordering Physician: Sabrina Garcia Date of Service: 12/31/23 Procedure(s): CT cervical spine wo IV con Accession Number(s): [id number] cc: Sabrina Garcia; Physician,Unknown ~ EXAMINATION: CT CERVICAL SPINE WITHOUT CONTRAST CLINICAL INFORMATION: Trauma. COMPARISON: CT cervical spine dated 01/28/2020. TECHNIQUE: Noncontrast computed tomography of the cervical spine was performed. This CT examination was performed using dose optimization techniques as appropriate, variously including the following: *Automated exposure control *Adjustment of mA and/or kV according to patient size (this includes techniques or standardized protocols for targeted exams where dose is matched to indication/reason for exam; i.e. extremities or head) *Use of iterative reconstruction technique DLP: 983 mGy-cm FINDINGS: There is trace anterolisthesis of C2 in relation to C3, unchanged when compared with the prior examination. The vertebral bodies and posterior elements are otherwise well aligned. Vertebral body heights are preserved. There is degenerative disc disease at C3-4, C4-5, and C5-C6 characterized by intervertebral disc space narrowing, endplate sclerosis and cyst formation, and marginal osteophytosis. The degree of degenerative disc disease appears similar to that seen on the prior examination. The prevertebral soft tissue is normal in appearance. The C1-C2 relationship is anatomic. The dens is intact. Paraspinal soft tissue is normal in appearance. There is no acute cervical spine fracture. The visualized lung apices are clear. The thyroid gland is normal in appearance. CT/CT cervical spine wo IV con IMPRESSION: No acute osseous cervical spine abnormality. Degenerative disc disease from C3-4 through C5-6 as described above. Fleischner guidelines were followed. Electronically signed by: Drew Chabmers DO 12/31/2023 10:08 PM EDT RP Differential Diagnosis Differential Diagnoses: The differential diagnosis associated with the presentation includes Discharge Plan Discharge Clinical Impression: Muscle strain, Contusion of forehead Patient Disposition: Home, Self-Care Instructions: Contusion in Adults (ED), Bone Bruise (ED) Additional Instructions: CT scan of your head and neck were normal. You did not sustain an acute injury. You will likely feel more uncomfortable over the next few days following this fall. See home care instructions. You can use your home pain medication, the tramadol, as needed for your discomfort. Follow up with your primary care provider as needed. Prescriptions: No Action hydrochlorothiazide 25 mg tablet 25 mg PO QAM Qty: 90 3RF cholecalciferol (vitamin D3) 25 mcg (1,000 unit) tablet 25 mcg PO QAM Qty: 90 2RF Eliquis 5 mg tablet 5 mg PO BID 90 Days Qty: 180 3RF montelukast 10 mg tablet 10 mg PO BEDTIME Flovent HFA 110 mcg/actuation HFA aerosol inhaler 1 puff inhalation BID albuterol sulfate [ProAir HFA] 90 mcg/actuation HFA aerosol inhaler 2 puff PO Q4-6H PRN (Reason: sob) lidocaine [Lidoderm] 5 % adhesive patch,medicated 1 - 2 patch topical DAILY PRN (Reason: pain) calcium carbonate-vitamin D3 600 mg-10 mcg (400 unit) tablet 1 tab PO tramadol 50 mg tablet 50 - 100 mg PO Q12H PRN (Reason: Pain (Scale Score 7-10)) metoprolol tartrate 50 mg tablet 50 mg PO BID 90 Days Qty: 180 3RF digoxin 125 mcg (0.125 mg) tablet 125 mcg PO DAILY Qty: 90 1RF Print Language: Omani
[2024-01-01 01:05] VITALS: BP 111/47; PULSE 65; RESP 18; TEMP 37.1; O2SAT 95
== END 2024-01-01 01:06 | disposition home or self-care (01) ==
PROVIDERS: Emergency Provider Emergency Medicine
DX: S16.1XXA Strain of muscle, fascia and tendon at neck level, initial encounter (principal); S00.83XA Contusion of other part of head, initial encounter; R51.9 Headache, unspecified; M54.2 Cervicalgia; W01.0XXA Fall on same level from slipping, tripping and stumbling without subsequent striking against object, initial encounter; Y93.01 Activity, walking, marching and hiking; Y92.512 Supermarket, store or market as the place of occurrence of the external cause; Y99.8 Other external cause status
CPT/HCPCS: 70450; 72125; 99284

== ENCOUNTER 2024-01-02 15:11 | Outpatient (REF) | payer MEDICAID, SELFPAY ==
--- NOTE | ~2024-01-02 | XR_ITS ---
EXAMINATION: XR HAND, RIGHT CLINICAL INFORMATION: Ongoing right hand pain status post fall 2 days ago. Bruise in palm on AC. COMPARISON: None available. TECHNIQUE: PA, lateral, and oblique views of the right hand. FINDINGS: The third DIP joint is held in flexion on all views, limiting study. Recommend clinical correlation. No acute fracture or dislocation identified. No lytic or sclerotic bony lesion is seen. Degenerative change of the second DIP joint. Limited evaluation of the third DIP joint. Joint spaces otherwise appear maintained. XR/XR hand RT min 3V IMPRESSION: Findings as above. Electronically signed by: Garcia Hearn MD 01/12/2024 03:03 PM EDT
--- NOTE | ~2024-01-02 | XR_ITS ---
EXAMINATION: XR KNEE, RIGHT CLINICAL INFORMATION: Ongoing right knee pain and swelling status post fall 2 days ago. COMPARISON: None available. TECHNIQUE: Four views of the right knee. FINDINGS: Mild to moderate degenerative change predominantly involving the medial compartment, with joint space narrowing, sclerosis, and osteophyte No fracture or joint effusion appreciated. Alignment is anatomic. No abnormal soft tissue calcification identified. XR/XR knee RT 3V IMPRESSION: Mild to moderate osteoarthritis. Electronically signed by: Garcia Hearn MD 01/12/2024 03:00 PM EDT
== END 2024-01-02 15:12 | disposition home or self-care (01) ==
LOC: HO.HHCX 15:11
PROVIDERS: Visit Provider Student in an Organized Health Care Education/Training Program
DX: M25.561 Pain in right knee (principal); M79.641 Pain in right hand; R60.0 Localized edema
CPT/HCPCS: 73130; 73562

== ENCOUNTER 2024-01-14 10:25 | Outpatient (REF) | payer MEDICAID, SELFPAY ==
--- NOTE | ~2024-01-14 | US_ITS ---
EXAMINATION: US COMPLETE ABDOMEN WITH LIVER ELASTOGRAPHY CLINICAL INFORMATION: Hepatic cirrhosis. COMPARISON: June 25, 2022. TECHNIQUE: Real-time imaging of the abdominal viscera. Noninvasive ultrasound liver fibrosis assessment is performed using Daniel ElastPQ point quantification shear wave elastography (pSWE) with a C5-2 MHz transducer. Multiple elastography samples are obtained. FINDINGS: PANCREAS: Head and body appear unremarkable. Tail not visualized. ABDOMINAL AORTA: The proximal, middle, and distal aortic segments appear unremarkable in caliber. INFERIOR VENA CAVA: Visualized portions appear unremarkable. LIVER: Nodular hepatic contour. Heterogeneous hepatic echogenicity diffusely. 1.2 x 0.9 x 0.7 cm homogeneously echogenic structure in the right hepatic lobe suggesting a benign hemangioma. No suspicious focal lesion or intrahepatic biliary duct dilatation identified. The right lobe measures 15.7 cm in length. The left lobe measures 9.6 cm in length. Portal flow is towards the liver (hepatopetal). Shear wave liver elastography median stiffness is 2.16 m/s (reference: normal median stiffness is 1.3 m/s or less). Previously 1.41 m/s. IQR/median stiffness to assess sampling precision is 0.14 (reference: good quality data set is IQR/median stiffness of 0.15 or less). Previously 0.09 GALLBLADDER: The gallbladder is physiologically distended without evidence of stones, sludge, polyps, wall thickening or pericholecystic fluid. COMMON BILE DUCT: Normal in caliber measuring 0.4 cm in diameter. RIGHT KIDNEY: No hydronephrosis. No renal calculi or focal parenchymal lesion identified. The kidney measures 10.1 cm in maximum dimension. LEFT KIDNEY: No hydronephrosis. No renal calculi or focal parenchymal lesion identified. The kidney measures 10.2 cm in maximum dimension. SPLEEN: The spleen measures 13.4 cm in maximum dimension. FREE FLUID: None. US/US abdomen comp w elastography IMPRESSION: Liver elastography: Measuremensts are consistent with compensated advanced chronic liver disease. When compared with prior exam, there is a statistically significant decrease in liver stiffness (decrease at least 10%). Findings consistent with hepatic cirrhosis. Mild splenomegaly, suggesting portal hypertension. Probable 1.2 cm benign right hepatic hemangioma. REFERENCE: Society of Radiologists in Ultrasound Liver Stiffness Thresholds (2020): LIVER STIFFNESS THRESHOLDS: *Liver Stiffness equal or less than 1.3 m/s: High probability of being normal. *Liver Stiffness less than 1.7 m/s: In the absence of other known clinical signs, rules out compensated advanced chronic liver disease. *Liver Stiffness 1.7-2.1 m/s: Suggestive of compensated advanced chronic liver disease but need further test for confirmation. *Liver Stiffness over 2.1 m/s: Rules in compensated advanced chronic liver disease. *Liver Stiffness over 2.4 m/s: Suggestive of clinically significant portal hypertension. QUALITY OF DATA SET: *IQR/Median value equal or less than 0.15 implies a quality data set. *IQR/Median value over 0.15 implies a poor quality data set. SIGNIFICANT CHANGE FROM PRIOR EXAM: Significant change if liver stiffness measurement is 10% or greater from prior exam. OTHER CONSIDERATIONS: The stage of liver fibrosis may be overestimated in the setting of acute hepatitis, liver inflammation, elevated liver function tests, hepatic vascular congestion, obstructive cholestasis, non-fasting state, and infiltrative diseases such as amyloidosis and lymphoma. In some patients with NAFLD, the liver stiffness thresholds for compensated advanced chronic liver disease may be lower. In causes other than viral hepatitis and NAFLD, liver stiffness thresholds are not well established. Electronically signed by: Garcia Hearn MD 01/16/2024 05:25 PM EDT
[2024-01-14 12:46] LABS: Digoxin 0.8 ng/mL (0.8-2.0)
== END 2024-01-14 10:26 | disposition home or self-care (01) ==
LOC: HO.US 10:25
PROVIDERS: Absent Provider Internal Medicine; Visit Provider Internal Medicine Gastroenterology
DX: K74.60 Unspecified cirrhosis of liver (principal); I48.0 Paroxysmal atrial fibrillation
CPT/HCPCS: 36415; 76700; 76981; 80162

== ENCOUNTER 2024-01-28 10:13 | Outpatient (AMB) | payer MEDICAID, SELFPAY ==
--- NOTE | 2024-01-28 10:27 | AM.OFFVISNUR ---
Intake Visit Reasons: Hep B Allergies rivaroxaban [From XARELTO] Allergy (Intermediate, Verified 12/31/23 19:11) GI BLEEDING SEAFOOD Allergy (Intermediate, Uncoded 12/31/23 19:11) RASH Assessment & Plan Assessment & Plan Orders: Orders Hepatitis B Adult Immunization Today Z23 - Encounter for immunization Medications: New Engerix-B (PF) (hepatitis B virus vacc.rec(PF)) 1 mL IM ONCE 1 mL 0RF NS Z23 - Encounter for immunization
== END 2024-01-28 10:29 | disposition home or self-care (01) ==
PROVIDERS: PCP Nurse Practitioner Primary Care; Visit Provider Internal Medicine Gastroenterology
DX: Z23 Encounter for immunization (principal)

== ENCOUNTER → 2024-01-28 10:13 | Outpatient (BNVA) | payer MEDICAID, SELFPAY | PROVIDERS: PCP Nurse Practitioner Primary Care; Visit Provider Internal Medicine Gastroenterology | DX: Z23 Encounter for immunization (principal) | CPT/HCPCS: 90471; 90746; 99211 ==

== ENCOUNTER 2024-02-25 09:34 | Outpatient (AMB) | payer MEDICAID, SELFPAY ==
--- NOTE | 2024-02-25 09:52 | AM.OFFVISNUR ---
Intake Visit Reasons: Hep B #2 Allergies rivaroxaban [From XARELTO] Allergy (Intermediate, Verified 12/31/23 19:11) GI BLEEDING SEAFOOD Allergy (Intermediate, Uncoded 12/31/23 19:11) RASH Assessment & Plan Assessment & Plan Orders: Orders Hepatitis B Adult Immunization Today Z23 - Encounter for immunization Medications: New Engerix-B (PF) (hepatitis B virus vacc.rec(PF)) 1 mL IM ONCE 1 mL 0RF NS Z23 - Encounter for immunization
== END 2024-02-25 09:53 | disposition home or self-care (01) ==
PROVIDERS: PCP Nurse Practitioner Primary Care; Visit Provider Internal Medicine Gastroenterology
DX: Z23 Encounter for immunization (principal)

== ENCOUNTER → 2024-02-25 09:34 | Outpatient (BNVA) | payer MEDICAID, SELFPAY | PROVIDERS: PCP Nurse Practitioner Primary Care; Visit Provider Internal Medicine Gastroenterology | DX: Z23 Encounter for immunization (principal) | CPT/HCPCS: 90471; 90746; 99211 ==

== ENCOUNTER 2024-03-25 10:58 | Outpatient (RCR) | payer MEDICAID, SELFPAY ==
[2024-02-14 07:58] VITALS: BP 137/71; PULSE 90
== END 2024-04-03 15:18 | disposition home or self-care (01) ==
LOC: HO.PT 10:58
PROVIDERS: PCP Nurse Practitioner Primary Care; Visit Provider Nurse Practitioner Primary Care
DX: M54.41 Lumbago with sciatica, right side (principal)
CPT/HCPCS: 97110; 97140; 97161

== ENCOUNTER 2024-03-25 15:39 | Outpatient (REF) | payer MEDICAID, SELFPAY ==
[2024-03-25 17:47] LABS: MANUAL DIFF FLAG NO
[2024-03-25 18:07] LABS: Basophils Percent Auto 0.6 % (0-2); Eosinophils Absolute Auto 0.1 X10*3/uL (0.0-0.4); Eosinophils Percent Auto 2.1 % (0-4); Hematocrit 43.1 % (37.0-47.0); Hemoglobin 14.1 g/dl (12.0-16.0); Imm Gran Abs Auto 0.01 X10*3/uL (0.00-0.03); Imm Gran Pct Auto 0.3 % (0.0-0.4); Lymphocytes Absolute Auto 0.8 X10*3/uL (1.2-4.9); Lymphocytes Percent Auto 24.7 % (20-40); Mean Corpuscular HGB Conc 32.7 g/dl (31.0-35.0); Mean Corpuscular Hemoglobin 30.8 pg (27.0-33.0); Mean Corpuscular Volume 94.1 fL (80.0-98.0); Mean Platelet Volume 10.9 fL (9.4-12.3); Monocytes Absolute Auto 0.3 X10*3/uL (0.1-1.2); Monocytes Percent Auto 8.6 % (2-11); Neutrophils Absolute Auto 2.1 x10*3/uL (2.0-8.3); Neutrophils Percent Auto 63.7 % (45-73); Platelet Count 157 X10*3/uL (160-400); Red Blood Count 4.58 X10*6/uL (4.20-5.50); Red Cell Distribution Width 15.5 % (11.0-16.0); White Blood Count 3.4 X10*3/uL (4.8-10.8)
== END 2024-03-25 15:40 | disposition home or self-care (01) ==
LOC: HO.HHCL 15:39
PROVIDERS: Visit Provider Nurse Practitioner Primary Care
DX: R53.83 Other fatigue (principal)
CPT/HCPCS: 36415; 85025

== ENCOUNTER 2024-06-09 13:23 | Outpatient (REF) | payer MEDICAID, SELFPAY ==
--- NOTE | ~2024-06-09 | MM_ITS ---
EXAMINATION: DXA BONE DENSITY AXIAL HISTORY: Estrogen deficiency TECHNIQUE: [employer] Dual energy absorptiometry (DEXA) of the lumbar spine, total left hip, and femoral neck was performed. COMPARISON: Comparison is made with the prior examination dated 10/31/2021. FINDINGS: The bone mineral density of the lumbar spine is 1.012 with a T-score of -1.4, and a Z-score of -0.2. This represents a BMD change of 8.0% compared to the prior exam. This is statistically significant. The bone mineral density of the left total hip is 0.961 with a T-score of -0.4, and a Z-score of 0.8. This represents BMD change of 3.0% compared to the prior exam. This is not statistically significant. The bone mineral density of the left femoral neck is 0.843 with a T-score of -1.4, and a Z-score of 0.0. This represents BMD change of 10.3% compared to the prior exam. FRACTURE RISK: The FRAX index suggests a ten year probability of major osteoporotic fracture of 5.1%, and of hip fracture 0.7%. MM/XR DEXA axial skeleton IMPRESSION: Based on bone mineral density, and according to World Health Organization (WHO) criteria, the diagnosis is consistent with osteopenia. All bone density values are in grams per centimeter squared (g/cm2). Statistically, 68% of repeat scans fall within 1 SD (+/- 0.010 g/cm2 for AP spine L1-L4) and 1 SD (+/- 0.012 g/cm2 for femur total) FRAX is a trademark of the [employer] [facility] [employer], a World Health Organization (WHO) Collaborating Center. Electronically signed by: Atul Mejía MD 06/15/2024 11:32 AM [facility] [place]
== END 2024-06-09 13:24 | disposition home or self-care (01) ==
LOC: HO.MAMMO 13:23
PROVIDERS: PCP Nurse Practitioner Primary Care; Visit Provider Nurse Practitioner Primary Care
DX: Z13.820 Encounter for screening for osteoporosis (principal); M85.80 Other specified disorders of bone density and structure, unspecified site; Z78.0 Asymptomatic menopausal state
CPT/HCPCS: 77080

== ENCOUNTER → 2024-06-09 13:30 | Outpatient (BNV) | payer MEDICAID, SELFPAY | PROVIDERS: PCP Nurse Practitioner Primary Care; Visit Provider Radiology Diagnostic Radiology | DX: M85.89 Other specified disorders of bone density and structure, multiple sites (principal) | CPT/HCPCS: 77080 ==

== ENCOUNTER 2024-07-06 11:29 | Outpatient (AMB) | payer MEDICAID, SELFPAY ==
[2024-07-06 11:42] VITALS: BP 131/60; PULSE 63; BMI 33.2
--- NOTE | 2024-07-06 11:42 | MHC.OFFVIS ---
Vital Signs 07/06/24 11:42 Height 4 ft 11 in Weight 164 lb 7.437 oz BMI 33.2 BP 131/60 Blood Pressure Location Lt brachial Position Sitting Pulse 63 Intake Visit Reasons: 6 month follow up Intake Note: Walt returns in 6 months follow up. CC: Patient reports not having too much of an appetite. Denies other GI symptoms today. Binder Stripper Hand Required: No Allergies rivaroxaban [From XARELTO] Allergy (Intermediate, Verified 07/06/24 11:44) GI BLEEDING SEAFOOD Allergy (Intermediate, Uncoded 12/31/23 19:11) RASH HPI HPI 6 month follow up: Details: 68 y/o woman w/ HTN, asthma, p-A-fib presenting today for f/u for compensated cirrhosis. RECAP: Had been seeing Dr austin for cirrhosis, presumed due to CARTWRIGHT or prior Hep C (treated 2015) never been heavy drinker she got the covid vaccine MELD 9 in the past Hep C serology pos but PCR was negative MRI 07/2021- cirrhosis, gallstones EGD/colonoscopy-09/2021- x 1 varix noted, H pylori pos and treated with levo, amoxil and pantoprazole, TA removed EGD: 12/03-- flat varix INTERIM: she feels well no abdominal pain no nausea or vomiting she has no confusion, memory is good no abdominal distention no melena or rectal bleeding EXAM: GENERAL: The patient is well developed and nontoxic. VITAL SIGNS:see workflow HEENT: Nonicteric sclerae, PERRLA, EOMI. Oropharynx clear. Moist mucous membranes. Conjunctivae appear well perfused. No thyroid mass. CHEST: Chest wall is nontender. HEART: Regular rate and rhythm without murmurs. LUNGS: Clear to auscultation bilaterally. ABDOMEN: Soft, positive bowel sounds, nontender, no organomegaly.no flank tenderness SKIN: No rash, no excessive bruising, petechiae, or purpura. NEUROLOGIC: Cranial nerves II-XII intact without motor/sensory deficit. A/P: 1. Cirrhosis, compensated, prob CARTWRIGHT related or from prior Hep C--MELD Na--8-9 range 2. hx of TA 3. H pylori s/p treatment--cured plan; 1/ Recheck labs now 2/ US screening for HCC now--ordered 3/ varices--repeat EGD, in 2-3 yr--- 4/ HE-no overt evidence 5/ ascites: no evidence of ascites on exam 6/ HM: needs Hep B vaccination, take vit D and MV 7/ advised can take green tea or black coffee 2-4 cups PFSH Medical History Hemorrhage of gastrointestinal tract, unspecified PAF (paroxysmal atrial fibrillation) Tubular adenoma of colon Low vitamin D level Atrial fibrillation Cirrhosis of liver Asthma Hepatitis B Surgical History History of esophagogastroduodenoscopy (EGD) Hx of colonoscopy History of total abdominal hysterectomy and bilateral salpingo-oophorectomy History of 3 sections Family History Father No problems noted. Mother No problems noted. 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 Panel Today K74.60 - Unspecified cirrhosis of liver, K75.81 - Nonalcoholic steatohepatitis (CARTWRIGHT) Prothrombin Time INR Today K74.60 - Unspecified cirrhosis of liver Vitamin D 25-OH Total Today K74.60 - Unspecified cirrhosis of liver, R79.89 - Other specified abnormal findings of blood chemistry Zinc Today K74.60 - Unspecified cirrhosis of liver, R79.89 - Other specified abnormal findings of blood chemistry Coding Level of Care Code Est Pt Level 4 (48846) Diagnoses Cirrhosis of liver K74.60 Low vitamin D level R79.89
--- OUTSIDE RECORDS SUMMARY | 2024-07-06 13:14 | XMS_ITS | Encounter Summary ---
Author Organization [employer] Address [address] 7[address] [place] [address] Care Team Providers Care Umbrella Tipper Name Role Phone Sudha Mitchell Primary Care Provider [phone] Everett Rojas MD Unavailable [phone] Reason for Visit * Reason Onset Date Comments chart prep 06/30/2024 Encounter Details Date Type Department Care Team ([facility] st Contact Info) Description 06/30/2024 Telephone [facility] MEDICINE [address] [place] [address] Barbie Munroe MA chart prep Social History Tobacco Use Types Packs/Day Years Used Date Smoking Tobacco: Former Cigarettes Passive Smoke Exposure: Never Smokeless Tobacco: Never Alcohol Use Standard Drinks/Week Comments Never 0 (1 standard drink = 0.6 oz pur e alcohol) Housing Stability Answer Date Recorded What is your housing situation today? I have shasha tejada 06/18/[address] you li ve. Do you have problems with any of the following? None of the above 06/18/2024 Food Insecurity Answer Date Recorded Within the past 12 months, y ou worried that your food would run out before you got money to buy more: Never True 01/16/2024 Within the past 12 months,th e food you bought just didn't last and you didn't have enough money to get more: Never True 09/2023 Transportation Answer Date Recorded In the past 12 months, has l ack of transportation kept you from medical appts, meetings, work or from getting things needed for daily living? No 01/16/2024 Utilities Answer Date Recorded In the past 12 months, has t he electric, gas, oil or water company threatened to shut off services in your home? No 04/13/2024 Depression Answer Date Recorded Patient Health Questionnaire-2 Score 0 09/18/2022 Internet Access Answer Date Recorded Internet Access Q1 Yes 01/16/2024 Internet Access Q2 Not on file 01/16/2024 Comments Unknown Sex and Gender Information Value Date Recorded Sex Assigned at Female 03/12/2022 10:30 AM EDT Legal Sex Female 10:30 AM EDT Gender Identity Female 04/16/2023 2:17 PM EST Sexual Orientation Straight 03/12/2022 10 :30 AM EDT documented as of this encounter Miscellaneous Notes * Telephone Encounter - Barbie Munroe MA - 06/30/2024 3:04 PM EST Chart Prep Labs: done Images: ordered 01/16/24 Vaccines due: yes Referrals: ortho no show Screenings: mammogram Overdue care gaps: PHQ-9 documented in this encounter Plan of Treatment Upcoming Encounters Date Type Department Care Team (Late st Contact Info) Description 07/06/2024 2:15 PM EST Office Visit [address] [address] Sudha Mitchell ANP [address] [place] [address] 07/31/2024 8:30 AM EDT Clinical Support [address] [address] Nichole Lucio RN [address] [place] [address] documented as of this encounter Visit Diagnoses Not on filedocumented in this encounter Care Teams Umbrella Tipper Relationship Specialty Start Date End Date Sudha Mitchell ANP [address] [place] [address] PCP - General Family Medicine 09/29/[address] 3rd [place] [address] Cardiology 04/21/24 documented as of this encounter
--- OUTSIDE RECORDS SUMMARY | 2024-07-06 13:14 | XMS_ITS | Encounter Summary ---
Author Organization [employer] Address [address] [facility] 7t [place] [address] Care Team Providers Care Junior Underwriter Name Role Phone Sudha Mitchell Primary Care Provider [phone] Everett Rojas MD Unavailable [phone] Reason for Visit * Reason Comments Med Refill Encounter Details Date Type Department Care Team (Late st Contact Info) Description 02/20/2024 Refill [facility] [address] [place], [place] [phone] Sudha Mitchell ANP [address] [place] [address] Lumbago of lumbar region with sciatica Social History Tobacco Use Types Packs/Day Years Used Date Smoking Tobacco: Never Smokeless Tobacco: Never Alcohol Use Standard Drinks/Week Comments Never 0 (1 standard drink = 0.6 oz pur e alcohol) Housing Stability Answer Date Recorded What is your housing situation today? I have shasha tejada 01/16/[address] you li ve. Do you have problems with any of the following? None of the above 01/16/2024 Food Insecurity Answer Date Recorded Within the [...] shut off services in your home? No 03/06/2023 Depression Answer Date Recorded Patient Health Questionnaire-2 [...] AM EDT documented as of this encounter Plan of Treatment Upcoming Encounters Date Type Department Care Team (Late st Contact Info) Description 07/06/2024 2:15 PM EST Office Visit [address] [address] Sudha Mitchell ANP [address] [place] [address] 07/31/2024 8:30 AM EDT Clinical Support [address] [address] Nichole Lucio, MONAE [address] [place] [address] documented as of this encounter Visit Diagnoses Diagnosis Lumbago of lumbar region with sciatica documented in this encounter Care Teams Junior Underwriter Relationship Specialty Start Date End Date Sudha Mitchell ANP [address] [place] [address] PCP - General Family Medicine 09/29/19 Everett Rojas MD [address] 3rd [place] [address] Cardiology 04/21/24 documented as of this encounter
--- OUTSIDE RECORDS SUMMARY | 2024-07-06 13:14 | XMS_ITS | Encounter Summary ---
Author Organization [employer] Address [address] [facility] 7t [place] [address] Care Team Providers Care Cyber Security Engineer Name Role Phone Stephen Sudha WEI Primary Care Provider [phone] Everett Rojas MD Unavailable [phone] Encounter Details Date Type Department Care Team (Latest Contact Info) Description 06/12/2024 Travel Social History Tobacco Use Types Packs/Day Years Used Date Smoking Tobacco: Former Cigarettes Passive Smoke Exposure: Never Smokeless Tobacco: Never Alcohol Use Standard Drinks/Week Comments Never 0 (1 standard drink = 0.6 oz pur e alcohol) Housing Stability Answer Date Recorded What is your housing situation today? I have shasha tejada 04/13/[address] you li ve. Do you have problems with any of the following? Pests such as bugs, ants, or mice 04/13/2024 Food Insecurity Answer Date Recorded Within the [...] Description 07/06/2024 2:15 PM EST Office Visit [address] [address] Sudha Mitchell ANP [address] [place] [address] 07/31/2024 8:30 AM EDT Clinical Support [address] [address] Nichole Lucio RN 505 [place] [address] documented as of this encounter Visit Diagnoses Not on filedocumented in this encounter Care Teams Cyber Security Engineer Relationship Specialty Start Date End Date Sudha Mitchell ANP [address] [place] [address] PCP - General Family Medicine 09/29/19 Everett Rojas MD [address] [place] [address] Drive 3rd [place] [address] Cardiology 04/21/24 documented as of this encounter
--- OUTSIDE RECORDS SUMMARY | 2024-07-06 13:14 | XMS_ITS | Encounter Summary ---
Author Organization [employer] Address [address] [place] [address] 7t [place] [address] Care Team Providers Care Retail Marketing Manager Name Role Phone Sudha Mitchell Primary Care Provider [phone] Everett Rojas MD Unavailable [phone] Reason for Visit * Reason Comments Med Refill Encounter Details Date Type Department Care Team (Late st Contact Info) Description 08/14/2022 Refill [facility] MEDICINE [address] [place] [phone] [facility] [address] [place] [address] Lumbago of lumbar region with sciatica Social History Tobacco Use Types Packs/Day Years Used Date Smoking Tobacco: Never Assessed Comments Unknown Sex and Gender Information Value [...] Description 07/06/2024 2:15 PM EST Office Visit [facility] MEDICINE [address] [place] [address] Sudha Mitchell ANP [address] [place] [address] 07/31/2024 8:30 AM EDT Clinical Support [facility] MEDICINE [address] [place] [address] Nichole Lucio RN 505 [place] [address] documented as of this encounter Visit Diagnoses Diagnosis Lumbago of lumbar region with sciatica documented in this encounter Care Teams Retail Marketing Manager Relationship Specialty Start Date End Date Sudha Mitchell ANP [address] [place] [address] PCP - General Family Medicine 09/29/19 Everett Rojas MD [address] [place] [address] 3rd [place] [address] Cardiology 04/21/24 documented as of this encounter
--- OUTSIDE RECORDS SUMMARY | 2024-07-06 13:14 | XMS_ITS | Encounter Summary ---
Author Organization [employer] Address [address] [place] [address] 7t [place] [address] Care Team Providers Care Warehouse Freight Handler Name Role Phone Sudha Mitchell Primary Care Provider [phone] Everett Rojas MD Unavailable Reason for Visit * Reason Comments Med Refill Encounter Details Date Type Department Care Team (Late st Contact Info) Description 05/02/2022 Refill [facility] [address] [place], [place] [phone] Sudha Mitchell ANP [address] [place] [address] Cervicalgia Social History Tobacco Use Types Packs/Day Years [...] Encounters Date Type Department Care Team (Late Contact Info) Description 07/06/2024 2:15 PM EST Office Visit [facility] MEDICINE [address] [place] [address] Sudha Mitchell ANP 230 [place] [address] 07/31/2024 8:30 AM EDT Clinical Support [address] [address] Nichole Lucio RN [address] [place] [address] documented as of this encounter Visit Diagnoses Diagnosis Cervicalgia documented in this encounter Care Teams Warehouse Freight Handler Relationship Specialty Start Date End Date Sudha Mitchell ANP [address] [place] [address] PCP - General Family Medicine 09/29/19 Everett Rojas MD [address] [place] [address] 3rd [place] [address] Cardiology 04/21/24 documented as of this encounter
--- OUTSIDE RECORDS SUMMARY | 2024-07-06 13:14 | XMS_ITS | Encounter Summary ---
Author Organization [employer] Address [address] [facility] 7t [place] [address] Care Team Providers Care Group Home Supervisor Name Role Phone Sudha Mitchell Primary Care Provider [phone] Everett Rojas MD Unavailable [phone] Reason for Visit * Reason Comments Med Refill Encounter Details Date Type Department Care Team (Late st Contact Info) Description 03/23/2024 Refill [facility] [address] [place], [place] [phone] Sudha Mitchell ANP [address] [place] [address] Lumbago of lumbar region with sciatica Social [...] Description 07/06/2024 2:15 PM EST Office Visit [address] [address] Sudha Mitchell ANP [address] [place] [address] 07/31/2024 8:30 AM EDT Clinical Support [address] [address] Nichole Lucio, MONAE [address] [place] [address] documented as of this encounter Visit Diagnoses Diagnosis Lumbago of lumbar region with sciatica documented in this encounter Care Teams Group Home Supervisor Relationship Specialty Start Date End Date Sudha Mitchell ANP [address] [place] [address] PCP - General Family Medicine 09/29/19 Everett Rojas MD [address] 3rd [place] [address] Cardiology 04/21/24 documented as of this encounter
--- OUTSIDE RECORDS SUMMARY | 2024-07-06 13:14 | XMS_ITS | Encounter Summary ---
Author Organization [employer] Address [address] [place] [address] 7t [place] [address] Care Team Providers Care Mobile Sales Expert Name Role Phone Sudha Mitchell Primary Care Provider [phone] Everett Rojas MD Unavailable [phone] Reason for Visit * Reason Comments Med Refill Encounter Details Date Type Department Care Team (Late st Contact Info) Description 06/22/2022 Refill [facility] MEDICINE [address] [place] [address] Sudha Mitchell ANP 230 [place] [address] Lumbago of lumbar region with sciatica Social [...] Description 07/06/2024 2:15 PM EST Office Visit [address] [address] Sudha Mitchell ANP 230 [place] [address] 07/31/2024 8:30 AM EDT Clinical Support [facility] MEDICINE [address] [place] [phone] Nichole Lucio RN 505 [place] [address] documented as of this encounter Visit Diagnoses Diagnosis Lumbago of lumbar region with sciatica documented in this encounter Care Teams Mobile Sales Expert Relationship Specialty Start Date End Date Sudha Mitchell ANP [address] [place] [address] PCP - General Family Medicine 09/29/19 Everett Rojas MD [address] [place] [address] 3rd [place] [address] Cardiology 04/21/24 documented as of this encounter
--- OUTSIDE RECORDS SUMMARY | 2024-07-06 13:14 | XMS_ITS | Encounter Summary ---
Author Organization [employer] Address [address] [facility] 7t [place] [address] Care Team Providers Care Provider Relations Specialist Name Role Phone Stephen Sudha WEI Primary Care Provider [phone] Everett Rojas MD Unavailable [phone] Reason for Visit * Reason Comments controlled substance treatment Encounter Details Date Type Department Care Team (Latest Contact Info) Description 06/12/2024 8:30 AM EST Clinical Support [facility] MEDICINE 230 [place] [address] Nichole Lucio, MONAE 505 [place] [address] 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ciatica Social History Tobacco Use Types Packs/Day [...] AM EDT documented as of this encounter Progress Notes * Nichole Lucio RN - 06/12/2024 8:30 AM EST S: DENTAL AIDE initial NV. Patient is prescribed Tramadol 50mg bid PRN for chronic back pain. Last PCP visit was on 04/21/24. Patient states has been taking medications only as prescribed, usually every day,bid only when needed. Denies any adverse effects. Denies ETOH, nicotine or illicit drugs use. Current pain level is 3/10 located in the lower back/ R knee, hands. Patient states medication usually pro huang 80% pain relief. DENTAL AIDE Agreement initiated today. O: VSS. DENTAL AIDE tier 4. WHOLESALE MANAGER checked on 06/12/24. No discrepancies noted. Medication refilled on 06/09/24.Pill count not performed as it is patient's first visit and she stated she forgot to bring pills. Reminded patient to bring pills to all the DENTAL AIDE visits/ when requested. Patient takes med only as needed. 49 pills expected. VI 7 screening done, total score 0. opioid risk tool completed, low risk. BPI completed. Pain severity score of (3), activity interference score of (0). UTOX completed. Negative for AMP, BAR, BUP, BZO, LILIYA, FTY, MDMA, MET, MOP, MTD, OXY, PCP, TCA, THC. UTOX as expected. A: BZO use r/t anxiety. P: Patient to cont. with current medication regimen as needed and take medication only as directed.f/u for next DENTAL AIDE NV scheduled for 08/01/24 @ 8:30am. F/u with PCP 07/06/24. Reminder slip given. f/u sooner PRN. Patient verbalized understanding and agreed to plan. documented in this encounter Plan of Treatment Upcoming Encounters Date Type Department Care Team (Late st Contact Info) Description 07/06/2024 2:15 PM EST Office Visit [address] [address] Sudha Mitchell ANP [address] [place] [address] 07/31/2024 8:30 AM EDT Clinical Support [address] [address] Nichole Lucio RN [address] [place], [place] [phone] documented as of this encounter Procedures Procedure Name Priority Date/Time Associated Diagnosis Comments POCT KRISHAN-14 URINE DRUG SCREEN Routine 06/12/2024 8:54 AM EST 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ciatica documented in this encounter Results * POCT KRISHAN-14 Urine Drug Screen (06/12/2024 8:54 AM EST) Urine Urine specimen obtained by clean catch procedure / Unknown 06/12/2024 8:54 AM EST Narrative Nichole Lucio RN - 06/12/2024 8:54 AM EST .UTOX cup Lot#[id number] Exp. 02/04/26 Internal Pass Control Sudha WEI POINT OF CARE TEST ENTER/EDIT OR DERABLES Final Result documented in this encounter Visit Diagnoses Diagnosis 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ciatica documented in this encounter Care Teams Provider Relations Specialist Relationship Specialty Start Date End Date Sudha Mitchell ANP [address] [place] [address] PCP - General Family Medicine 09/29/19 Everett Rojas MD [address]rd [place] [address] Cardiology 04/21/24 documented as of this encounter
--- OUTSIDE RECORDS SUMMARY | 2024-07-06 13:14 | XMS_ITS | Encounter Summary ---
Author Organization [employer] Address [address] [facility] 7t [place] [address] Care Team Providers Care Hyster Machine Operator Name Role Phone Stephen Sudha WEI Primary Care Provider [phone] Everett Rojas MD Unavailable [phone] Reason for Visit * Reason Comments Med Refill Encounter Details Date Type Department Care Team ([facility] st Contact Info) Description 12/30/2023 Refill [facility] MEDICINE 230 [place] [address] Fabi Boudreaux MD [address] [place] [address] Lumbago of lumbar region with sciatica Social History Tobacco Use Types Packs/Day Years Used Date Smoking Tobacco: Never Smokeless Tobacco: Never Alcohol Use Standard Drinks/Week Comments Never 0 (1 standard drink = 0.6 oz pur e alcohol) Housing Stability Answer Date Recorded What is your housing situation today? I have shashakalpana tejada 03/06/[address] you li ve. Do you have problems with any of the following? None of the above 03/06/2023 Food Insecurity Answer Date Recorded Within the past 12 months, y ou worried that your food would run out before you got money to buy more: Never True 03/06/2023 Within the past 12 months,th e food you bought just didn't last and you didn't have enough money to get more: Never True Transportation Answer Date Recorded In the past 12 months, has l ack of transportation kept you from medical appts, meetings, work or from getting things needed for daily living? No 03/06/2023 Utilities Answer Date Recorded In the past 12 months, has t he electric, gas, oil or water company threatened to shut off services in your home? No 03/06/2023 Depression Answer Date Recorded Patient Health Questionnaire-2 Score 0 09/18/2022 Comments Unknown Sex and Gender Information Value [...] Description 07/06/2024 2:15 PM EST Office Visit [address] [address] Sudha Mitchell ANP [address] [place] [address] 07/31/2024 8:30 AM EDT Clinical Support [address] [address] Nichole Lucio, MONAE 505 [place] [address] documented as of this encounter Visit Diagnoses Diagnosis Lumbago of lumbar region with sciatica documented in this encounter Care Teams Hyster Machine Operator Relationship Specialty Start Date End Date Sudha Mitchell ANP [address] [place] [address] PCP - General Family Medicine 09/29/19 Everett Rojas MD [address] [place] [address] 3rd [place] [address] Cardiology 04/21/24 documented as of this encounter
--- OUTSIDE RECORDS SUMMARY | 2024-07-06 13:14 | XMS_ITS | Clinical Summary ---
Author Organization [employer] Address [address] [place] [address] Care Team Providers Care Managing Principal Name Role Phone Trujillo Tom WEI Primary Care Provider [phone] Everett Rojas MD Unavailable [phone] Allergies Active Allergy Reactions Criticality Noted Date Comments Rivaroxaban High 03/28/2020 GIB Shellfish Allergy Anaphylaxis High 03/12/2023 Patient reported Medications metoprolol succinate XL (Toprol-XL) 25 MG 24 hr tablet TAKE 2 TABLETS BY MOUTH ONCE DAILY IN THE MORNING Active hydroCHLOROthia zide (HYDRODiuril) 25 MG tablet Take 25 mg by mouth in the morning. Active albuterol (2.5 MG/3ML) 0.083% nebulizer solution INHALE 1 AMPULE USING A NEBULIZER EVERY 6 HOURS NEEDED Active cholecalciferol (Vitamin D-3) 25 MCG tablet Take 25 mcg by mouth in the morning. 022 Active Diclofenac Sodium 1 % gelIndications: Chronic pain of right knee Apply 2 G up to 4x/d as needed for joint pain 100 g 2 023 Active Additional Information Patient not taking.Reported on 01/02/2024 betamethasone, augmented, (Diprolene) 0.05 % ointmentIndicat ions:Skin lesion Apply topically 2 times daily. 45 g 023 Active albuterol 108 (90 Base) MCG/ACT inhalerIndicati ons:Moderate persistent asthma without complication Inhale 2 puffs every 4 (four) hours if needed for wheezing. 18 g 1 023 Active EPINEPHrine (Epipen) 0.3 MG/0.3ML injection syringeIndicati ons:Seafood allergy Inject 0.3 mL (0.3 mg) as directed 1 (one) time if needed for anaphylaxis for up to 1 dose. Inject into upper leg. Call 911 after use. 2 each 1 023 Active montelukast (Singulair) 10 MG tablet TAKE 1 TABLET BY MOUTH AT BEDTIME 90 tablet 3 024 Active Mometasone Furoate (Asmanex HFA) 100 MCG/ACT aerosol INHALE 1 PUFF TWICE DAILY. RINSE MOUTH AFTER USING 13 g 5 024 Active triamcinolone (Kenalog) 0.1 % creamIndication s:Venous stasis dermatitis of both lower extremities MIX WITH CERAVE DIRECTED 80 g 1 024 Active ceramides (CeraVe) moisturizing creamIndication s:Venous stasis dermatitis of both lower extremities MIX WITH TRIAMCINOLONE AND APPLY TO THE AFFECTED AREA(S) ONCE DAILY NEEDED FOR DRY SKIN 453 g 1 024 Active digoxin (Lanoxin) 125 MCG tablet Take 125 mcg by mouth Once per day. 024 Active Eliquis 5 MG tablet TAKE 1 TABLET BY MOUTH TWICE DAILY IN THE MORNING AND IN THE EVENING Active lidocaine (Lidoderm) 5 % patchIndication s:Acute pain of right knee Apply 1 patch topically Once per day. 30 patch 3 024 Active traMADol (Ultram) 50 MG tabletIndicatio ns:Lumbago of lumbar region with sciatica TAKE 1 TABLET BY MOUTH EVERY TWELVE HOURS NEEDED FOR SEVERE PAIN 56 tablet 025 Active Calcium Carb-Cholecalci ferol 600-10 MG-MCG tablet TAKE 1 TABLET BY MOUTH TWICE DAILY IN THE MORNING AND AT BEDTIME 180 tablet 3 025 Active Calcium Carb-Cholecalci ferol 600-10 MG-MCG tablet TAKE 1 TABLET BY MOUTH TWICE DAILY IN THE MORNING AND AT BEDTIME 180 tablet 3 024 2024 Discontinued Active Problems Problem Noted Date Diagnosed Date Right hand pain 01/02/2024 Assessment & Plan (01/02/2024 6:46 PM EDT): Pt here w normal neck exam and normal CN II to XII From hands and knees noted in right hand bruise in her palm and pain w closing hand but no deformities ,in her right knee note same size as left one ,but tender w movement and palpation no erythema no swelling no increase skin temp -advised to take her tramadol 50 mg Q 12 Prn -was staking less before -Lidoderm patch for right knee -tylenol 500 mg Q 12h PRN -ice use -XR of right knee and right hand-will call pt w result -apt w PCP 01/16/2024 -alarm signs and symptoms discussed Right knee pain 01/02/2024 Close exposure to COVID-19 virus 01/02/2024 Assessment & Plan (01/02/2024 6:46 PM EDT): -pt here w neg COVID 19 test done for son exposure who lives w her , pt does have risk factors for complication if gets infected but given mx meds including antiarrythmic ,AC not able to use paxlovid for ppx , if gets infected will need to consider molnupiravir ,discussed about precautions measures and alarm signs and symptoms if develops symptoms Esophageal varices in cirrhosis 04/16/2023 Overview (04/16/2023): EGD repeat due 05/2023 [facility] History of Helicobacter pylori infection 023 Overview (04/16/2023): tx'd 10/2021 via [facility] Cirrhosis of liver without ascites 04/16/2023 Overview (04/16/2023): compensated. thought to be d/t CARTWRIGHT vs. HCV. Follows w/ [facility] and had abd MRI to eval liver lesion 07/2022. 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 11/19/2022 Overview (11/19/2022): MRI 01/01/2022 findings copied into 09/18/22 note for reference Thrombocytopenia 03/20/2018 Trigger finger of both hands 03/20/2018 Neoplasm of liver 11/10/2017 Paroxysmal atrial fibrillation 02/07/2016 Atherosclerosis of [place] co ronary artery of [place] heart with stable angina pectoris 11/25/2015 Benign essential hypertension 11/25/2015 Chronic hepatitis C 11/25/2015 Moderate persistent asthma 11/25/2015 Encounters Date Type Department Care Team Description 06/30/2024 Telephone [facility] [place] [address] Barbie Munroe MA chart prep 06/18/2024 Patient Outreach [facility] [place] [address] Tom Trujillo ANP Pre-visit Planning (SDOH Screening negative and Tobacco screening negative) 06/12/2024 8:30 AM EST Clinical Support [facility] [place] [address] Nichole Lucio RN 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ciatica 06/12/2024 Telephone [facility] [address] [facility] [place] [address] Nichole Lucio RN 06/12/2024 Travel 06/10/2024 Refill [facility] [place] [address] Tom Trujillo ANP 05/25/2024 Refill [facility] [address] [facility] [place] [address] Tom Trujillo ANP Lumbago of lumbar region with sciatica 05/11/2024 Telephone [facility] [place] [address] Kavita Moody MA June04/22/2024 Telephone [facility] [place] [address] Tom Trujillo ANP 04/21/2024 2:15 PM EST Office Visit [facility] [place] [address] Tom Trujillo ANP Acute pain of right shoulder (Primary Dx); 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ciatica; Paroxysmal atrial fibrillation (CMS/HCC); Leg cramps; Encounter for immunization; Osteopenia, unspecified location 04/21/2024 Travel 04/15/2024 Refill [facility] [address] [facility] [place] [address] Tom Trujillo ANP Lumbago of lumbar region with sciatica 04/13/2024 Patient Outreach [facility] [address] [place] [address] Tom Trujillo ANP Pre-visit Planning (SDOH Screening positive and Tobacco screening negative) from Last 3 Months Immunizations Name Administration Dates Next Due Hep B, adult 02/25/2024,01/28/2024,01/22/2022 Influenza injectable quadriv alent IIV4 with preservative 02/20/2018,04/29/2017,05/08/2016 Influenza injectable quadriv alent preservative free 06/15/2019 Influenza, High Dose Seasona l, Preservative Free 04/21/2024 Moderna Covid-19 Vaccine 12+ 08/16/2020,07/20/19 21 Pneumococcal Conjugate PCV 13 11/17/2020 Pneumococcal Polysaccharide PPSV23 11/28/2021, TD (adult), 2 Lf tetanus tox oid, preservative free, adsorbed 06/27/2018 Tdap 05/08/2016 Zoster, Recombinant 11/17/2020 Zoster, live 05/08/2016 Social History Tobacco Use Types Packs/Day Years Used Date Smoking Tobacco: Former Cigarettes Passive Smoke Exposure: Never Smokeless Tobacco: Never Tobacco Cessation:Counseling Given: Not Answered Alcohol Use Standard Drinks/Week Comments Never 0 [...] Orientation Straight 03/12/2022 10 :30 AM EDT Last Filed Vital Signs Vital Sign Reading Time Taken Comments Blood Pressure 118/69 04/21/2024 2:30 PM EST Pulse 73 04/21/2024 2:30 PM EST Temperature 36.2 ??C (97.2 ??F) 04/21/2024 2:30 PM ES T Respiratory Rate 14 04/21/2024 2:30 PM EST Oxygen Saturation 97% 03/25/2024 2:51 PM EST Inhaled Oxygen Concentration - - Weight 76.7 kg (169 lb) 04/21/2024 2:30 PM EST Height 147.3 cm (4' 10 ) 03/25/2024 2:51 PM EST Body Mass Index 35.32 03/25/2024 2:51 PM EST Plan of Treatment Upcoming Encounters Date Type Department Care Team (Late st Contact Info) Description 07/06/2024 2:15 PM EST Office Visit [facility] [address] [place] [phone] Tom Trujillo ANP [address] [place] [address] 07/31/2024 8:30 AM EDT Clinical Support [facility] [address] [place] [address] Nichole Lucio RN [address] [place] [address] Health Maintenance Due Date Last Done Comments CT Colonography 1955 FIT DNA/Cologuard 1955 FIT 1955 FOBT 1955 Sigmoidoscopy 1955 Hepatitis A Vaccines (1 of 2 - Risk 2-dose series) 1972 RSV Patients and Patients Aged 60 years or older (1 - Risk 60-74 years 1-dose series) 2013 Zoster Vaccines (3 of 3) 01/12/2021 11/17/2020, 04/13 Depression Screening 09/19/2023 09/18/2022, 09/19/19 23 COVID-19 Vaccine (3 - season) 2024 08/16/2020, 07/19/2020 Hepatitis B Vaccines (3 of 3 - Risk 3-dose series) 04/21/2024 02/25/2024, 01/28/2024, 01/22/2022 Mammogram 04/22/2024 04/22/2023, 10/12, 03/21/2020, Additional history exists Colonoscopy 10/10/2024 10/10/2021 Colorectal Cancer Screening 10/10/2024 Alcohol/Substance Use Screening 03/25/2025 03/25/2024 Tobacco Screening 04/21/2025 04/21/2024 SDOH Screening 06/18/2025 06/18/2024 DTaP/Tdap/Td Vaccines (3 - Td or Tdap) 06/27/2028 06/27/2018, 05/08/2016 Lipid Panel 09/15/2028 09/16/2023 Pneumococcal Vaccine: 50+ Years Completed 11/28/2021, 11/17/2020, 05/08/2016 Influenza Vaccine Completed 04/21/2024, , 02/20/2018, Additional history exists HIB Vaccines Aged Out No longer eligi ble based on patient's age to complete this topic HPV Vaccines Aged Out No longer eligi ble based on patient's age to complete this topic IPV Vaccines Aged Out No longer eligi ble based on patient's age to complete this topic Meningococcal Vaccine Aged Out No ernesto raoul eligible based on patient's age to complete this topic RSV under 20 months Aged Out No longe r eligible based on patient's age to complete this topic Rotavirus Vaccines Aged Out No longer eligible based on patient's age to complete this topic Procedures Procedure Name Priority Date/Time Associated Diagnosis Comments PROTHROMBIN TIME-INR Routine 07/06/2024 12:41 PM EST CBC WITH AUTO DIFFERENTIAL Routine 07/06/2024 12:41 PM EST POCT KRISHAN-14 URINE DRUG SCREEN Routine 06/12/2024 8:54 AM EST 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ciatica BD DEXA AXIAL Routine 06/09/2024 1:30 PM EST Osteopenia, unspecified location LIPID PANEL, STANDARD Routine 09/16/2023 9:41 AM EDT Atherosclerosis of [place] coronary artery of [place] heart with stable angina pectoris (CMS/HCC) BI MAMMOGRAM SCREENING TOMOSYNTHESIS BILATERAL Routine 04/22/2023 3:15 PM EST HM COLONOSCOPY Routine 10/10/2021 from Last 3 Months or Most Recently Relevant to Health Maintenance Results * (ABNORMAL) CBC auto differential (07/06/2024 12:41 PM EST) White Blood Count 3.3(L) 4.8 - 10.8 X10*3/uL [facility] Red Blood Count 4.07(L) 4.20 - 5.50 X10*6/uL [facility] Hemoglobin 12.4 12.0 - 16.0 g/dl [facility] Hematocrit 37.1 37.0 - 47.0 % [facility] Mean Corpuscular Volume 91.2 80.0 - 98.0 fL [facility] Mean Corpuscular Hemoglobin 30.5 27.0 - 33.0 pg [facility] Mean Corpuscular HGB Conc 33.4 31.0 - 35.0 g/dl [facility] Red Cell Distribution Width 14.3 11.0 - 16.0 % [facility] Platelet Count 117(L) 160 - 400 X10*3/uL [facility] Mean Platelet Volume 9.7 9.4 - 12.3 fL [facility] Neutrophils Percent Auto 64.8 45 - 73 % [facility] Imm Gran Pct Auto 0.3 0.0 - 0.4 % [facility] Lymphocytes Percent Auto 23.9 20 - 40 % [facility] Monocytes Percent Auto 9.5 2 - 11 % [facility] Eosinophils Percent Auto 1.2 0 - 4 % [facility] Basophils Percent Auto 0.3 0 - 2 % [facility] NRBC Pct Auto 0.0 0.0 - 0.2 /100WBC [facility] Neutrophils Absolute Auto 2.1 2.0 - 8.3 x10*3/uL [facility] Imm Gran Abs Auto 0.01 0.00 - 0.03 X10*3/uL [facility] Lymphocytes Absolute Auto 0.8(L) 1.2 - 4.9 X10*3/uL [facility] Monocytes Absolute Auto 0.3 0.1 - 1.2 X10*3/uL [facility] Eosinophils Absolute Auto 0.0 0.0 - 0.4 X10*3/uL [facility] Basophils Absolute Auto 0.0 0.0 - 0.2 X10*3/uL [facility] NRBC Abs Auto 0.000 0.0 - 0.012 X10*3/uL [facility] 07/06/2024 12:4 1 PM EST 07/06/2024 12:46 PM EST us Generic External Data Provider LAB BLOOD ORDERAB LES Final Result [facility] [address] [place] [address] [phone] * (ABNORMAL) Prothrombin Time-INR (07/06/2024 12:41 PM EST) Prothrombin Time 17.8(H) 10.9 - 12.4 SEC [facility] INTERNATIONAL NORM RATIO 1.5(H) 0.9 - 1.1 [facility] Comment:INTERNATIONAL NORMAL IZED RATIO (INR) REFERENCE RANGES Reference RangeFor patients not on anticoagulant therapy: 0.9 - 1.1INR ranges for oral anticoagulanttherapy:For prevention and treatment of venous thrombosis and pulmonary embolism: 2.0 - 3.0For acute myocardial infarction with aspirin therapy: 2.0 - 3.0For acute myocardial infarction without aspirin therapy: 3.0 - 4.0For patients with mechanical prosthetic heart valves: 2.5 - 3.5 07/06/2024 12:4 1 PM EST 07/06/2024 12:46 PM EST us Generic External Data Provider LAB BLOOD ORDERAB LES Final Result [facility] [address] [place] [address] [phone] * POCT KRISHAN-14 Urine Drug Screen (06/12/2024 8:54 AM EST) Urine Urine specimen obtained by clean catch procedure / Unknown 06/12/2024 8:54 AM EST Narrative Nichole Lucio RN - 06/12/2024 8:54 AM EST .UTOX cup Lot#[id number] Exp. 02/04/26 Internal Pass Control us Tom Trujillo ANP POINT OF CARE TEST ENTER/EDIT OR DERABLES Final Result * BD DEXA Axial (06/09/2024 1:30 PM EST) Anatomical Region Laterality Modality Body Radiographic Dawn ging 06/09/2024 1:30 PM EST Narrative 06/15/2024 11:35 AM EST ? [facility] ? [address] ?[place] [address] ? Mammography Report ? Signed ? Patient: Rudolph Torres,Virgenmina ?MR ?? #: [id number] ? : 1955 ?Acct:[id number] ? Age/Sex: 68 / F ?ADM Date: 01/28/25 ? Loc: HO.MAMMO ? Attending Dr: Tom Trujillo PROFILE GRINDER TECHNICIAN ? Ordering Physician: TOM TRUJILLO NP ?Results: ? Date of Service: 06/09/24 ?Follow Up: ? Procedure(s): XR DEXA axial skeleton ?? Accession Number(s): [id number] ? cc: TOM TRUJILLO NP ? EXAMINATION: ??DXA BONE DENSITY AXIAL ? HISTORY: ??Estrogen deficiency ? TECHNIQUE: [employer] Dual energy absorptiometry (DEXA) ?? of the lumbar spine, total left hip, and femoral neck was performed. ? COMPARISON: Comparison is made with the prior examination dated ?? 10/31/2021. ? FINDINGS: ? The bone mineral density of the lumbar spine is 1.012 with a T-score of ?? -1.4, and a Z-score of -0.2. ? This represents a BMD change of 8.0% compared to the prior exam. ??This ?? is statistically significant. ? The bone mineral density of the left total hip is 0.961 with a T-score ?? of -0.4, and a Z-score of 0.8. ? This represents BMD change of 3.0% compared to the prior exam. ??This is ?? not statistically significant. ? The bone mineral density of the left femoral neck is 0.843 with a ?? T-score of -1.4, and a Z-score of 0.0. ? This represents BMD change of 10.3% compared to the prior exam. ? FRACTURE RISK: ?? The FRAX index suggests a ten year probability of major osteoporotic ?? fracture of 5.1%, and of hip fracture 0.7%. ? MM/XR DEXA axial skeleton ?? IMPRESSION: ?? Based on bone mineral density, and according to World Health ?? Organization (WHO) criteria, the diagnosis is consistent with ?? osteopenia. ? All bone density values are in grams per centimeter squared (g/cm2). ?? Statistically, 68% of repeat scans fall within 1 SD (+/- 0.010 g/cm2 ?? for AP spine L1-L4) and 1 SD (+/- 0.012 g/cm2 for femur total) ?? FRAX is a trademark of the [employer]'s ?? [place] for Metabolic Bone Disease, a World Health Organization (WHO) ?? Collaborating Center. ? Electronically signed by: ??Atul Mejía MD ??06/15/2024 11:32 AM EST ?? RP ? Dictated By: ?Atul Mejía MD ? Signed By: ?<Electronically signed by Atul Mejía MD in OV> ?06/15/24 1132 ? DD/ 1330 ? TD/TT: 06/09/24 1400 ? Vest Tailor: ? Procedure Note Doncliffinterpreter, Image - 06/15/2024 Cynthia [facility] [address] [place] [address] Mammography Report Signed Patient: Sid RajanR #: [id number] : 4Acct:[id number] Age/Sex: 68 / FADM Date: 06/09/24 Loc: LEE Attending Dr: Tom Trujillo NP Ordering Physician: TOM TRUJILLOults: Date of Service: 06/09/24Follow Up: Procedure(s): XR DEXA axial skeleton Accession Number(s): [id number] cc: TOM TRUJILLO PROFILE GRINDER TECHNICIAN EXAMINATION: DXA BONE DENSITY AXIAL HISTORY: Estrogen deficiency TECHNIQUE: [employer] Dual energy absorptiometry (DEXA) of the lumbar spine, total left hip, and femoral neck was performed. COMPARISON: Comparison is made with the prior examination dated 10/31/2021. FINDINGS: The bone mineral density of the lumbar spine is 1.012 with a T-score of -1.4, and a Z-score of -0.2. This represents a BMD change of 8.0% compared to the prior exam. This is statistically significant. The bone mineral density of the left total hip is 0.961 with a T-score of -0.4, and a Z-score of 0.8. This represents BMD change of 3.0% compared to the prior exam. This is not statistically significant. The bone mineral density of the left femoral neck is 0.843 with a T-score of -1.4, and a Z-score of 0.0. This represents BMD change of 10.3% compared to the prior exam. FRACTURE RISK: The FRAX index suggests a ten year probability of major osteoporotic fracture of 5.1%, and of hip fracture 0.7%. MM/XR DEXA axial skeleton IMPRESSION: Based on bone mineral density, and according to World Health Organization (WHO) criteria, the diagnosis is consistent with osteopenia. All bone density values are in grams per centimeter squared (g/cm2). Statistically, 68% of repeat scans fall within 1 SD (+/- 0.010 g/cm2 for AP spine L1-L4) and 1 SD (+/- 0.012 g/cm2 for femur total) FRAX is a trademark of the [employer] [place] for Metabolic Bone Disease, a World Health Organization (WHO) Collaborating Center. Electronically signed by: Atul Mejía MD 06/15/2024 11:32 AM EST Dictated By: Atul Mejía MD Signed By: <Electronically signed by Atul Mejaí MD in OV> 06/15/24 1132 DD/ 1330 TD/TT: 06/09/24 1400 Vest Tailor: [facility] DXA PROCEDURES Final Result * (ABNORMAL) Lipid Panel, Standard (09/16/2023 9:41 AM EDT) Triglycerides 64 <150 mg/dL [facility] Comment:Desirable Triglyceri de: less than 150 mg/dLBorderline High Triglyceride 150-199 mg/dLHigh Triglyceride: 200-499 mg/dLVery High Triglyceride: greater than or equal to 5OO mg/dL Cholesterol 189 <200 mg/dL [facility] Comment:Desirable Cholestero l: less than 200 mg/dLBorderline High Cholesterol: 200-239 mg/dLHigh Cholesterol: greater than 239 mg/dL LDL Cholesterol Calculated 131(H) <100 mg/dL [facility] Comment:Desirable LDL: less than 100 mg/dLNear Optimal/Above Optimal LDL: 110- 129 mg/dLBorderline High LDL: 130-159 mg/dLHigh LDL: 160-189 mg/dLVery High LDL: greater than or equal to 190 mg/dL HDL Cholesterol 46 >40 mg/dL [facility] Comment:Desirable HDL: great er than 40 mg/dL Note: This HDL assay may give artificially low results in patients with liver disease. Blood Venous blood specimen / Unknown 09/16/2023 9:41 AM EDT 09/16/2023 9:41 AM EDT Tom Trujillo [facility] LAB BLOOD ORDERABLES Final Resul t [facility] [address] [place] [address] [phone] * BI Mammogram Screening Tomosynthesis Bilateral (04/22/2023 3:15 PM EST) Anatomical Region Laterality Modality Breast Bilateral Mammography 04/22/2023 3:15 PM EST Narrative 05/07/2023 8:31 PM EST ? [facility] ? [address] ?[place] [address] ? Mammography Report ? Signed ? Patient: Rudolph Torres,Virgenmina ?MR ?? #: [id number] ? : 1955 ?Acct:[id number] ? Age/Sex: 67 / F ?ADM Date: 12/11/23 ? Loc: HO.MAMMO ? Attending Dr: Tom Trujillo PROFILE GRINDER TECHNICIAN ? Ordering Physician: TOM TRUJILLO NP ?Results: 1Negative ? Date of Service: 04/22/23 ?Follow Up: 1 Year From Orig ?? inal Mammogram ? Procedure(s): MM tomosynthesis screening BI ?? Accession Number(s): [id number] ? cc: TOM TRUJILLO NP ? EXAMINATION: ?? MM SCREENING DIGITAL BREAST TOMOSYNTHESIS, BILATERAL ? CLINICAL INFORMATION: ? Screening. Asymptomatic. ? COMPARISON: ?? Mammography: This study is compared with prior exams dating back to ?? 2016. ? TECHNIQUE: ?? Digital breast tomosynthesis is performed in both the craniocaudal and ?? mediolateral oblique views along with computer-aided detection (CAD). ?? Synthesized 2D images are generated from the tomosynthesis. ? FINDINGS: ?? There are scattered areas of fibroglandular density (ACR BI-RADS breast ?? composition Category b). ? There are no significant masses, abnormal calcifications, or other ?? abnormalities. ? MM/MM tomosynthesis screening BI ?? IMPRESSION: ?? No mammographic evidence of malignancy. ? ASSESSMENT: ? BI-RADS BI-RADS 1 - Negative ? RECOMMENDATION: ?? Routine annual mammography screening. ? 1 year F/U ? This examination should not preclude the clinical evaluation of a ?? suspicious palpable abnormality. ? This patient's information was entered into a reminder system with a ?? target due date for their next mammogram. ? Dictated By: ?Jennifer Be MD ? Signed By: ?<Electronically signed by Jennifer Be MD in OV> ? 05/07/232026 ? DD/ 1515 ? TD/TT: ? Vest Tailor: ? Procedure Note Donotuseinterpreter, Image - 05/07/2023 [facility] [address] [place] [address] Mammography Report Signed Patient: Kenyon Rajan #: [id number] : 4Acct:[id number] Age/Sex: 67 / FADM Date: 04/22/23 Loc: MAMMO Attending Dr: Tom Trujillo NP Ordering Physician: TOM TRUJILLO NPResults: 1Negative Date of Service: 04/22/23Follow Up: 1 Year From Orig inal Mammogram Procedure(s): MM tomosynthesis screening BI Accession Number(s): [id number] cc: TOM TRUJILLO NP EXAMINATION: MM SCREENING DIGITAL BREAST TOMOSYNTHESIS, BILATERAL CLINICAL INFORMATION: Screening. Asymptomatic. COMPARISON: Mammography: This study is compared with prior exams dating back to 2016. TECHNIQUE: Digital breast tomosynthesis is performed in both the craniocaudal and mediolateral oblique views along with computer-aided detection (CAD). Synthesized 2D images are generated from the tomosynthesis. FINDINGS: There are scattered areas of fibroglandular density (ACR BI-RADS breast composition Category b). There are no significant masses, abnormal calcifications, or other abnormalities. MM/MM tomosynthesis screening BI IMPRESSION: No mammographic evidence of malignancy. ASSESSMENT: BI-RADS BI-RADS 1 - Negative RECOMMENDATION: Routine annual mammography screening. 1 year F/U This examination should not preclude the clinical evaluation of a suspicious palpable abnormality. This patient's information was entered into a reminder system with a target due date for their next mammogram. Dictated By: Jennifer Be MD Signed By: <Electronically signed by Jennifer Be MD in OV> 05/07/232026 DD/ 1515 TD/TT: Vest Tailor: Tom WEI IMLesley BI PROCEDURES Final Result * Colonoscopy (10/10/2021) Colonoscopy Normal Normal Historical Provider HEALTH MAINTENANCE Final Result from Last 3 Months or Most Recently Relevant to Health Maintenance Insurance [facility] STANDARD Care Teams Managing Principal Relationship Specialty Start Date End Date Tom Trujillo ANP [address] [place] [address] PCP - General Family Medicine 09/29/19 Everett Rojas MD [address] [place] [address] 3rd [place] [address] Cardiology 04/21/24
--- OUTSIDE RECORDS SUMMARY | 2024-07-06 13:14 | XMS_ITS | Encounter Summary ---
Author Organization [employer] Address 75 [facility] 7t [place] [address] Care Team Providers Care Machine Erector Name Role Phone Sudha Mitchell Primary Care Provider [phone] Everett Rojas MD Unavailable [phone] Reason for Visit * Reason Comments Pre-visit Planning SDOH Screening negat christina and Tobacco screening negative Encounter Details Date Type Department Care Team ([facility] st Contact Info) Description 06/18/2024 Patient Outreach [facility] MEDICINE [address] [place] [address] Sudha Mitchell ANP [address] [place] [address] Pre-visit Planning (SDOH Screening negative and Tobacco screening negative) Social History Tobacco Use Types Packs/Day Years [...] as of this encounter Progress Notes * Annette Valle - 06/18/2024 9:20 AM EST ENRIQUE Mcguire placed successful outbound call to patient for pre-visit planning. Patient name and confirmed. Patient confirms appt date and time, and has transportation arrangements. Biggest concern for appointment at this time is no concerns. Patient advised to bring to appointment a photo id and insurance card. Appropriate screenings completed in anticipation of appointment. documented in this encounter Plan of Treatment Upcoming Encounters Date Type Department Care Team ([facility] st Contact Info) Description 07/06/2024 2:15 PM EST Office Visit [facility] MEDICINE [address] [place] [address] Sudha Mitchell ANP [address] [place] [address] 07/31/2024 8:30 AM EDT Clinical Support [address] [address] Nichole Lucio RN [address] [place] [address] documented as of this encounter Visit Diagnoses Not on filedocumented in this encounter Care Teams Machine Erector Relationship Specialty Start Date End Date Sudha Mitchell ANP [address] [place] [address] PCP - General Family Medicine 09/29/19 Everett Rojas MD [address] [place] [address] Drive 3rd [place] [address] Cardiology 04/21/24 documented as of this encounter
--- OUTSIDE RECORDS SUMMARY | 2024-07-06 13:14 | XMS_ITS | Encounter Summary ---
Author Organization [employer] Address [address] [place] [address] 7t [place] [address] Care Team Providers Care Groutman Name Role Phone Sudha Mitchell Primary Care Provider Everett Rojas MD Unavailable [phone] Reason for Visit * Reason Onset Date Comments Med Refill 11/23/2022 Encounter Details Date Type Department Care Team (Late st Contact Info) Description 11/23/[address] [facility] MEDICINE [address] [place], [place] [phone] Sudha Mitchell ANP [address] [place] [address] Med Refill Social History Tobacco Use Types Packs/Day Years Used Date Smoking Tobacco: Never Smokeless Tobacco: Never Depression Answer Date Recorded Patient Health Questionnaire-2 Score 0 09/18/2022 Comments Unknown Sex and Gender Information Value Date Recorded Sex Assigned at Female 03/12/2022 10:30 AM EDT Legal Sex Female 10:30 AM EDT Gender Identity Female 04/16/2023 2:17 PM EST Sexual Orientation Straight 03/12/2022 10 :30 AM EDT documented as of this encounter Miscellaneous Notes * Telephone Encounter - Dulce Maria Roper - 11/23/2022 9:50 AM EDT TC from pt requesting a med refill for medication Tramadol 50mg. PCP DR. Mitchell documented in this encounter Plan of Treatment Upcoming Encounters Date Type Department Care Team (Late Contact Info) Description 07/06/2024 2:15 PM EST Office Visit [address] [address] Sudha Mitchell ANP 230 [place] [address] 07/31/2024 8:30 AM EDT Clinical Support [address] [address] Nichole Lucio, MONAE [address] [place], [place] [phone] documented as of this encounter Visit Diagnoses Not on filedocumented in this encounter Care Teams Groutman Relationship Specialty Start Date End Date Sudha Mitchell ANP [address] [place] [address] PCP - General Family Medicine 09/29/[address] 3rd [place] [address] Cardiology 04/21/24 documented as of this encounter
--- OUTSIDE RECORDS SUMMARY | 2024-07-06 13:14 | XMS_ITS | Encounter Summary ---
Author Organization [employer] Address 75 [facility] 7t [place] [address] Care Team Providers Care Car Salter Name Role Phone Sudha Mitchell Primary Care Provider [phone] Everett Rojas MD Unavailable [phone] Reason for Visit * Reason Comments Med Refill Encounter Details Date Type Department Care Team ([facility] st Contact Info) Description 06/10/2024 Refill [facility] MEDICINE 230 [place], [place] [phone] Sudha Mitchell ANP 230 [place] [address] Social History Tobacco Use Types Packs/Day Years [...] 07/06/2024 2:15 PM EST Office Visit [address] [address] Sudha Mitchell ANP [address] [place] [address] 07/31/2024 8:30 AM EDT Clinical Support [address] [address] Nichole Lucio, MONAE [address] [place] [address] documented as of this encounter Visit Diagnoses Not on filedocumented in this encounter Care Teams Car Salter Relationship Specialty Start Date End Date Sudha Mitchell ANP [address] [place] [address] PCP - General Family Medicine 09/29/19 Everett Rojas MD [address] 3rd [place] [address] Cardiology 04/21/24 documented as of this encounter
--- OUTSIDE RECORDS SUMMARY | 2024-07-06 13:14 | XMS_ITS | Encounter Summary ---
Author Organization [employer] Address [address] [facility] 7t [place] [address] Care Team Providers Care Chief Operating Officer Name Role Phone Sudha Mitchell Primary Care Provider Everett Rojas MD Unavailable [phone] Reason for Visit * Reason Onset Date Comments Pre-op Visit 12/20/2023 Encounter Details Date Type Department Care Team ([facility] st Contact Info) Description 12/20/2023 Telephone [facility] MEDICINE 230 [place], [place] [phone] Sudha Mitchell ANP 230 [place] [address] Pre-op Visit Social History Tobacco Use Types Packs/Day Years Used Date Smoking Tobacco: Never Smokeless Tobacco: Never Alcohol Use Standard Drinks/Week Comments Never 0 (1 standard drink = 0.6 oz pur e alcohol) Housing Stability Answer Date Recorded What is your housing situation today? I have shasha tejada 03/06/[address] you [...] encounter Miscellaneous Notes * Telephone Encounter - Catherine Rodriguez - 12/20/2023 12:24 PM EDT Outgoing call To Mara at [facility] to inform pt is scheduled for pre op on 01/16/24 at 1:30PM with PCP Stephen Appointment reminder letter mailed * Telephone Encounter - Abigail Lou - 12/20/2023 10:26 AM EDT Date of Surgery: 01/27 Surgical procedure being done: Cataract left eye Type of anesthesia: MAC Lab needed: No EKG: No Surgeon's name: Kali Szymanski MD Facility name: [facility] Surgeon's office number: [phone] Ext [phone] Surgeon's office fax number: [phone] Contact name: Mara Last office note from surgeon requested: Yes documented in this encounter Plan of Treatment Upcoming Encounters Date Type Department Care Team ([facility] st Contact Info) Description 07/06/2024 2:15 PM EST Office Visit [facility] MEDICINE [address] [place] [address] Sudha Mitchell ANP [address] [place] [address] 07/31/2024 8:30 AM EDT Clinical Support [facility] MEDICINE [address] [place] [address] Nichole Lucio, RN [address] [place] [address] documented as of this encounter Visit Diagnoses Not on filedocumented in this encounter Care Teams Chief Operating Officer Relationship Specialty Start Date End Date Sudha Mitchell ANP [address] [place] [address] PCP - General Family Medicine 09/29/19 Everett Rojas MD [address] [place] [address] 3rd [place] [address] Cardiology 04/21/24 documented as of this encounter
--- OUTSIDE RECORDS SUMMARY | 2024-07-06 13:14 | XMS_ITS | Encounter Summary ---
Author Organization [employer] Address 75 [facility] 7t [place] [address] Care Team Providers Care Diamond Polisher Name Role Phone Sudha Mitchell Primary Care Provider Everett Rojas MD Unavailable [phone] Reason for Visit * Reason Comments Med Refill Encounter Details Date Type Department Care Team (Late st Contact Info) Description 09/18/2023 Refill [facility] [address] [place], [place] [phone] Sudha Mitchell ANP [address] [place] [address] Lumbago of lumbar region with sciatica Social [...] Description 07/06/2024 2:15 PM EST Office Visit [address] [address] Sudha Mitchell ANP [address] [place] [address] 07/31/2024 8:30 AM EDT Clinical Support [address] [address] Nichole Lucio, MONAE 505 [place] [address] documented as of this encounter Visit Diagnoses Diagnosis Lumbago of lumbar region with sciatica documented in this encounter Care Teams Diamond Polisher Relationship Specialty Start Date End Date Sudha Mitchell ANP [address] [place] [address] PCP - General Family Medicine 09/29/19 Everett Rojas MD [address] [place] [address] 3rd [place] [address] Cardiology 04/21/24 documented as of this encounter
--- OUTSIDE RECORDS SUMMARY | 2024-07-06 13:14 | XMS_ITS | Encounter Summary ---
Author Organization [employer] Address [address] [place] [address] 7t [place] [address] Care Team Providers Care Machining Engineer Name Role Phone Sudha Mitchell Primary Care Provider [phone] Everett Rojas MD Unavailable [phone] Reason for Visit * Reason Comments Med Refill Encounter Details Date Type Department Care Team (Late st Contact Info) Description 01/22/2023 Refill [facility] MEDICINE [address] [place] [phone] Sudha Mitchell ANP 230 [place], [place] [phone] Lumbago of lumbar region with sciatica Social History Tobacco Use Types Packs/Day Years Used Date Smoking Tobacco: Never Smokeless Tobacco: Never Alcohol Use Standard Drinks/Week Comments Never 0 (1 standard drink = 0.6 oz pur e alcohol) Depression Answer Date Recorded Patient Health Questionnaire-2 [...] Description 07/06/2024 2:15 PM EST Office Visit [facility] MEDICINE [address] [place] [phone] Sudha Mitchell ANP [address] [place], [place] [phone] 07/31/2024 8:30 AM EDT Clinical Support [facility] MEDICINE 230 [place] [address] Nichole Lucio, MONAE [address] [place] [address] documented as of this encounter Visit Diagnoses Diagnosis Lumbago of lumbar region with sciatica documented in this encounter Care Teams Machining Engineer Relationship Specialty Start Date End Date Sudha Mitchell ANP 230 [place] [address] PCP - General Family Medicine 09/29/19 Everett Rojas MD [address] [place] [address] 3rd [place] [address] Cardiology 04/21/24 documented as of this encounter
--- OUTSIDE RECORDS SUMMARY | 2024-07-06 13:14 | XMS_ITS | Encounter Summary ---
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 Tier 1 = HIGH RISK, Monthly HINGING MACHINE OPERATOR visits Tier 2 = MODerate RISK, Q3 Month visits Tier 3 = LOW RISK = Q4-6 month visits documented in this encounter Plan of Treatment Upcoming Encounters Date Type Department Care Team (Late st Contact Info) Description 07/06/2024 2:15 PM EST Office Visit [facility] MEDICINE [address] [place] [address] Sudha Mitchell ANP 230 [place] [address] 07/31/2024 8:30 AM EDT Clinical Support [facility] MEDICINE [address] [place] [address] Nichole Lucio RN [address] [place] [address] documented as of this encounter Visit Diagnoses Not on filedocumented in this encounter Care Teams Photovoltaic Installation Technician Relationship Specialty Start Date End Date Sudha Mitchell ANP [address] [place] [address] PCP - General Family Medicine 09/29/19 Everett Rojas MD [address] [place] [address] Drive 3rd Floor [place] [address] Cardiology 04/21/24 documented as of this encounter
--- OUTSIDE RECORDS SUMMARY | 2024-07-06 13:14 | XMS_ITS | Encounter Summary ---
Author Organization [employer] Address 75 [facility] 7t [place] [address] Care Team Providers Care Bacteriologist Medical Name Role Phone Sudha Mitchell Primary Care Provider [phone] Everett Rojas MD Unavailable [phone] Reason for Visit * Reason Comments Med Refill Encounter Details Date Type Department Care Team ([facility] st Contact Info) Description 10/18/2023 Refill [facility] MEDICINE [address] [place] [address] Sudha Mitchell ANP 230 [place] [address] Lumbago of lumbar region with sciatica Social [...] Description 07/06/2024 2:15 PM EST Office Visit [address] [address] Sudha Mitchell ANP [address] [place] [address] 07/31/2024 8:30 AM EDT Clinical Support [address] [address] Nichole Lucio RN 505 [place] [address] documented as of this encounter Visit Diagnoses Diagnosis Lumbago of lumbar region with sciatica documented in this encounter Care Teams Bacteriologist Medical Relationship Specialty Start Date End Date Sudha Mitchell ANP [address] [place] [address] PCP - General Family Medicine 09/29/19 Everett Rojas MD [address] [place] [address] 3rd [place] [address] Cardiology 04/21/24 documented as of this encounter
== END 2024-07-06 11:54 | disposition home or self-care (01) ==
PROVIDERS: PCP Nurse Practitioner Primary Care; Visit Provider Internal Medicine Gastroenterology
DX: K74.60 Unspecified cirrhosis of liver (principal); R79.89 Other specified abnormal findings of blood chemistry
CPT/HCPCS: 99214

== ENCOUNTER 2024-07-06 11:29 | Outpatient (REF) | payer MEDICAID, SELFPAY ==
[2024-07-06 12:48] LABS: MANUAL DIFF FLAG NO
[2024-07-06 12:51] LABS: Basophils Percent Auto 0.3 % (0-2); Eosinophils Percent Auto 1.2 % (0-4); Hematocrit 37.1 % (37.0-47.0); Hemoglobin 12.4 g/dl (12.0-16.0); Imm Gran Abs Auto 0.01 X10*3/uL (0.00-0.03); Imm Gran Pct Auto 0.3 % (0.0-0.4); Lymphocytes Absolute Auto 0.8 X10*3/uL (1.2-4.9); Lymphocytes Percent Auto 23.9 % (20-40); Mean Corpuscular HGB Conc 33.4 g/dl (31.0-35.0); Mean Corpuscular Hemoglobin 30.5 pg (27.0-33.0); Mean Corpuscular Volume 91.2 fL (80.0-98.0); Mean Platelet Volume 9.7 fL (9.4-12.3); Monocytes Absolute Auto 0.3 X10*3/uL (0.1-1.2); Monocytes Percent Auto 9.5 % (2-11); Neutrophils Absolute Auto 2.1 x10*3/uL (2.0-8.3); Neutrophils Percent Auto 64.8 % (45-73); Platelet Count 117 X10*3/uL (160-400); Red Blood Count 4.07 X10*6/uL (4.20-5.50); Red Cell Distribution Width 14.3 % (11.0-16.0); White Blood Count 3.3 X10*3/uL (4.8-10.8)
[2024-07-06 13:07] LABS: INTERNATIONAL NORM RATIO 1.5 (0.9-1.1); Prothrombin Time 17.8 SEC (10.9-12.4)
[2024-07-06 13:16] LABS: Alanine Aminotransferase 39 U/L (0-31); Albumin Level 3.6 g/dL (3.5-5.0); Alkaline Phosphatase 47 U/L (39-117); Anion Gap 11 (12-20); Aspartate Amino Transferase 40 U/L (5-31); Bilirubin Total 0.8 mg/dL (0.0-1.0); Blood Urea Nitrogen 19 mg/dL (9-16); Calcium 9.6 mg/dL (8.4-10.2); Carbon Dioxide 30 mmol/L (22-29); Chloride 107 mmol/L (96-108); Estimated Glomerular Filt Rate > 60; Glucose Random 97 mg/dL (60-115); Potassium 3.8 mmol/L (3.3-5.1); Sodium 144 mmol/L (135-145); Total Protein 7.7 g/dL (6.5-8.0)
[2024-07-06 13:26] LABS: Vitamin D 25-OH Total 64.7 ng/mL (>30)
--- OUTSIDE RECORDS SUMMARY | 2024-07-06 14:14 | XMS_ITS | Encounter Summary ---
Author Organization [employer] Address 75 [facility] 7t [place] [address] Care Team Providers Care Dock Or Pier Laborer Name Role Phone Sudha Mitchell Primary Care Provider [phone] Everett Rojas MD Unavailable [phone] Reason for Visit * Reason Comments Pre-visit Planning SDOH Screening negat christina and Tobacco screening negative Encounter Details Date Type Department Care Team ([facility] st Contact Info) Description 06/18/2024 Patient Outreach [facility] MEDICINE 230 [place] [address] Sudha Mitchell ANP [address] [place] [address] Pre-visit Planning (SDOH Screening negative and Tobacco [...] Upcoming Encounters Date Type Department Care Team ([facility] st Contact Info) Description 07/06/2024 2:15 PM EST Office Visit [facility] MEDICINE [address] [place] [address] Sudha Mitchell ANP [address] [place] [address] Arrived 07/31/2024 8:30 AM EDT Clinical Support [facility] MEDICINE [address] [place] [address] Nichole Lucio RN 505 [place] [address] documented as of this encounter Visit Diagnoses Not on filedocumented in this encounter Care Teams Dock Or Pier Laborer Relationship Specialty Start Date End Date Sudha Mitchell ANP [address] [place] [address] PCP - General Family Medicine 09/29/19 Everett Rojas MD [address] [place] [address] Drive 3rd [place] [address] Cardiology 04/21/24 documented as of this encounter
--- OUTSIDE RECORDS SUMMARY | 2024-07-06 14:14 | XMS_ITS | Clinical Summary ---
Author Organization [employer] Address [address] [facility] 7t [place] [address] Care Team Providers Care Warehouse Attendant Name Role Phone Trujillo Tom WEI Primary Care Provider [phone] Everett Rojas MD Unavailable [phone] Allergies Active Allergy Reactions Criticality Noted Date [...] 04/16/2023 Overview (04/16/2023): EGD repeat due 05/2023 [facility] History of Helicobacter pylori infection 023 Overview (04/16/2023): tx'd 10/2021 via [facility] Cirrhosis of liver without ascites 04/16/2023 Overview (04/16/2023): compensated. thought to be d/t CARTWRIGHT vs. HCV. Follows w/ [facility] and had abd MRI to eval liver lesion 07/2022. 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 11/19/2022 Overview (11/19/2022): MRI 01/01/2022 findings copied into 09/18/22 note for reference Thrombocytopenia 03/20/2018 Trigger finger of both hands 03/20/2018 Neoplasm of liver 11/10/2017 Paroxysmal atrial fibrillation 02/07/2016 Atherosclerosis of viejas co ronary artery of viejas heart with stable angina pectoris 11/25/2015 Benign essential hypertension 11/25/2015 Chronic hepatitis C 11/25/2015 Moderate persistent asthma 11/25/2015 Encounters Date Type Department Care Team Description 07/06/2024 2:15 PM EST Office Visit [facility] [place] [address] Tom Trujillo ANP Arrived 07/06/2024 Travel 06/30/2024 Telephone [facility] [place] [address] Barbie Munroe MA chart prep 06/18/2024 Patient Outreach [facility] [place] [address] Tom Trujillo ANP Pre-visit Planning (SDOH Screening negative and Tobacco screening negative) 06/12/2024 8:30 AM EST Clinical Support [facility] [place] [address] Nichole Lucio RN 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ciatica 06/12/2024 Telephone [facility] [address] [place] [address] Nichole Lucio RN 06/12/2024 Travel 06/10/2024 Refill [facility] [place] [address] Tom Trujillo ANP 05/25/2024 Refill [facility] [address] [place] [address] Tom Trujillo ANP Lumbago of lumbar region with sciatica 05/11/2024 Telephone [facility] [place] [address] Kavita Moody MA June recall 04/22/2024 Telephone [facility] [place] [address] Tom Trujillo ANP 04/21/2024 2:15 PM EST Office Visit [facility] [place] [address] Tom Trujillo ANP Acute pain of right shoulder (Primary Dx); 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ciatica; Paroxysmal atrial fibrillation (CMS/HCC); Leg cramps; Encounter for immunization; Osteopenia, unspecified location 04/21/2024 Travel 04/15/2024 Refill [facility] [address] [place] [address] Tom Trujillo ANP Lumbago of lumbar region with sciatica 04/13/2024 Patient Outreach [facility] [address] [place] [address] Tom Trujillo ANP Pre-visit Planning (SDOH Screening [...] 2:15 PM EST Office Visit [facility] [address] [place] [address] Tom Trujillo ANP [address] [place] [address] Arrived 07/31/2024 8:30 AM EDT Clinical Support [facility] [address] [place] [address] Nichole Lucio RN [address] [place] [address] Health Maintenance Due Date Last Done Comments CT Colonography 1955 FIT DNA/Cologuard 1955 FIT 1955 FOBT 1955 Sigmoidoscopy 1955 Hepatitis A Vaccines (1 of 2 - Risk 2-dose series) 1972 RSV Patients and Patients Aged 60 years or older (1 - Risk 60-74 years 1-dose series) 2013 Zoster Vaccines (3 of 3) 01/12/2021 11/17/2020, 04/13 Depression Screening 09/19/2023 09/18/2022, 09/19/19 23 COVID-19 Vaccine ( season) 2024 08/16/2020, 07/19/2020 Hepatitis B Vaccines [...] Procedure Name Priority Date/Time Associated Diagnosis Comments VITAMIN D,25-OH,TOTAL,IA Routine 07/06/2024 12:41 PM EST COMPREHENSIVE METABOLIC PANEL Routine 07/06/2024 12:41 PM EST PROTHROMBIN TIME-INR Routine 07/06/2024 12:41 PM EST CBC WITH AUTO DIFFERENTIAL Routine 07/06/2024 12:41 PM EST POCT KRISHAN-14 URINE DRUG SCREEN Routine 06/12/2024 8:54 AM EST 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ciatica BD DEXA AXIAL Routine 06/09/2024 1:30 PM EST Osteopenia, unspecified location LIPID PANEL, STANDARD Routine 09/16/2023 9:41 AM EDT Atherosclerosis of viejas coronary artery of viejas heart with stable angina pectoris (CMS/HCC) BI MAMMOGRAM SCREENING TOMOSYNTHESIS BILATERAL Routine 04/22/2023 3:15 PM EST HM COLONOSCOPY Routine 10/10/2021 from Last 3 Months or Most Recently Relevant to Health Maintenance Results * Vitamin D, 25-Hydroxy, Total, Immunoassay (07/06/2024 12:41 PM EST) Vitamin D 25-OH Total 64.7 >30 ng/mL [facility] Comment:Health Based Referen ce Values*< 20 ng/mL Etpnknbdh50-91 ng/mL Insufficient> 30 ng/mL Sufficient*Yulissa MCGRATH. N Engl J Med. 2007;357:266-280Care must be taken in interpreting Vitamin D results fromdifferent laboratories and methodologies. Published datademonstrated that results from patients undergoinghemodialysis may show a negative bias when tested withvarious automated 25-OH vitamin D assays when compared toLC-MS/MS.When testing samples from patients whose predominant form ofVitamin D is Vitamin D2, such as patients receiving VitaminD2 supplementation, results that are subtherapeutic shouldbe confirmed with another method such as LC-MS/MS. 07/06/2024 12:4 1 PM EST 07/06/2024 12:46 PM EST us Generic External Data Provider LAB BLOOD ORDERAB LES Final Result [facility] [address] [place] [address] [phone] * (ABNORMAL) CBC auto differential (07/06/2024 12:41 PM EST) White Blood Count 3.3(L) 4.8 - 10.8 X10*3/uL [facility] Red Blood Count 4.07(L) 4.20 - 5.50 X10*6/uL [facility] Hemoglobin 12.4 12.0 - 16.0 g/dl [facility] Hematocrit 37.1 37.0 - 47.0 % [facility] Mean Corpuscular Volume 91.2 80.0 - 98.0 fL [facility] Mean Corpuscular Hemoglobin 30.5 27.0 - 33.0 pg [facility] Mean Corpuscular HGB Conc 33.4 31.0 - 35.0 g/dl [facility] Red Cell Distribution Width 14.3 11.0 - 16.0 % [facility] Platelet Count 117(L) 160 - 400 X10*3/uL [facility] Mean Platelet Volume 9.7 9.4 - 12.3 fL [facility] Neutrophils Percent Auto 64.8 45 - 73 % [facility] Imm Gran Pct Auto 0.3 0.0 - 0.4 % [facility] Lymphocytes Percent Auto 23.9 20 - 40 % [facility] Monocytes Percent Auto 9.5 2 - 11 % [facility] Eosinophils Percent Auto 1.2 0 - 4 % [facility] Basophils Percent Auto 0.3 0 - 2 % [facility] NRBC Pct Auto 0.0 0.0 - 0.2 /100WBC [facility] Neutrophils Absolute Auto 2.1 2.0 - 8.3 x10*3/uL [facility] Imm Gran Abs Auto 0.01 0.00 - 0.03 X10*3/uL [facility] Lymphocytes Absolute Auto 0.8(L) 1.2 - 4.9 X10*3/uL [facility] Monocytes Absolute Auto 0.3 0.1 - 1.2 X10*3/uL [facility] Eosinophils Absolute Auto 0.0 0.0 - 0.4 X10*3/uL [facility] Basophils Absolute Auto 0.0 0.0 - 0.2 X10*3/uL [facility] NRBC Abs Auto 0.000 0.0 - 0.012 X10*3/uL [facility] 07/06/2024 12:4 1 PM EST 07/06/2024 12:46 PM EST us Generic External Data Provider LAB BLOOD ORDERAB LES Final Result Performing Organization Address City/State/[facility] Co de Phone Number [facility] [address] [place] [phone] * (ABNORMAL) Prothrombin Time-INR (07/06/2024 12:41 PM EST) Prothrombin Time 17.8(H) 10.9 - 12.4 SEC [facility] INTERNATIONAL NORM RATIO 1.5(H) 0.9 - 1.1 [facility] Comment:INTERNATIONAL NORMAL IZED RATIO (INR) [...] Provider LAB BLOOD ORDERAB LES Final Result Performing Organization Address City/State/[facility] Co de Phone Number [facility] [address] [place] [address] [phone] * (ABNORMAL) Comprehensive Metabolic Panel (07/06/2024 12:41 PM EST) Sodium 144 135 - 145 mmol/L [facility] Potassium 3.8 3.3 - 5.1 mmol/L [facility] Chloride 107 96 - 108 mmol/L [facility] Carbon Dioxide 30(H) 22 - 29 mmol/L [facility] Anion Gap 11(L) 12 - 20 [facility] Urea Nitrogen (BUN) 19(H) 9 - 16 mg/dL [facility] Creatinine, Serum 0.77 0.5 - 1.4 mg/dL [facility] Estimated Glomerular Filt Rate >60 [facility] Comment:Chronic Kidney Disea se: Estimated GFR < 60 mL/min/1.65z3Bpexvf Kidney Disease: Estimated GFR < 15 mL/min/1.73m2 Glucose 97 60 - 115 mg/dL [facility] Calcium 9.6 8.4 - 10.2 mg/dL [facility] Bilirubin, Total 0.8 0.0 - 1.0 mg/dL [facility] Aspartate Amino Transferase 40(H) 5 - 31 U/L [facility] Alanine Aminotransferase 39(H) 0 - 31 U/L [facility] Total Protein 7.7 6.5 - 8.0 g/dL [facility] Albumin Level 3.6 3.5 - 5.0 g/dL [facility] Alkaline Phosphatase 47 39 - 117 U/L [facility] 07/06/2024 12:4 1 PM EST 07/06/2024 12:46 PM EST us Generic External Data Provider LAB BLOOD ORDERAB LES Final Result [facility] [address] [facility] [place] [address] [phone] * POCT KRISHAN-14 Urine Drug Screen (06/12/2024 8:54 AM EST) Urine Urine specimen obtained by clean catch procedure / Unknown 06/12/2024 8:54 AM EST Narrative Nichole Lucio RN - 06/12/2024 8:54 AM EST .UTOX cup Lot#[id number] Exp. 02/04/26 Internal Pass Control us Tom Trujillo ANP POINT OF CARE TEST ENTER/EDIT OR DERABLES Final Result * BD DEXA Axial (06/09/2024 1:30 PM EST) Anatomical Region Laterality Modality Body Radiographic Dawn ging 06/09/2024 1:30 PM EST Narrative 06/15/2024 11:35 AM EST ? [facility] ? [address] ?[place] [address] ? Mammography Report ? Signed ? Patient: Rudolph Torres,Alejandramina ?MR ?? #: [id number] ? : 1955 ?Acct:[id number] ? Age/Sex: 68 / F ?ADM Date: 01/28/25 ? Loc: HO.MAMMO ? Attending Dr: Tom Trujillo FINAL CIGAR AND BOX EXAMINER ? Ordering Physician: CASSANDRA,TOM DUNAWAY ?Results: ? Date of Service: /28/25 ?Follow Up: ? Procedure(s): XR DEXA axial skeleton ?? Accession Number(s): [id number] ? cc: TOM TRUJILLO NP ? EXAMINATION: ??DXA BONE DENSITY AXIAL ? HISTORY: ??Estrogen deficiency ? TECHNIQUE: [employer] Mobility Dual energy absorptiometry (DEXA) ?? of the [...] is a trademark of the [employer]'s ?? [place] for Metabolic Bone Disease, a World Health Organization (WHO) ?? Collaborating Center. ? Electronically signed by: ??Atul Mejía MD ??06/15/2024 11:32 AM EST ?? RP ? Dictated By: ?Atul Mejía MD ? Signed By: ?<Electronically signed by Atul Mejía MD in OV> ?06/15/24 1132 ? DD/ 1330 ? TD/TT: 06/09/24 1400 ? Anvil Worker: ? Procedure Note Donotuseinterpreter, Image - 06/15/2024 [facility] [address] [place] [address] Mammography Report Signed Patient: Sid RajanR #: [id number] : 4Acct:[id number] Age/Sex: 68 / FADM Date: 06/09/24 Loc: LEE Attending Dr: Tom Trujillo NP Ordering Physician: TOM TRUJILLOults: Date of Service: 06/09/24Follow Up: Procedure(s): XR DEXA axial skeleton Accession Number(s): [id number] cc: TOM TRUJILLO NP EXAMINATION: DXA BONE DENSITY AXIAL HISTORY: Estrogen deficiency TECHNIQUE: Aegis Mobility Dual energy absorptiometry (DEXA) of the lumbar [...] is a trademark of the [employer] [place] for Metabolic Bone Disease, a World Health Organization (WHO) Collaborating Center. Electronically signed by: Atul Mejía MD 06/15/2024 11:32 AM [facility] Dictated By: Atul Mejía MD Signed By: <Electronically signed by Atul Mejía MD in OV> 06/15/24 1132 DD/ 1330 TD/TT: 06/09/24 1400 Anvil Worker: [facility] DXA PROCEDURES Final Result * (ABNORMAL) Lipid Panel, Standard (09/16/2023 9:41 AM EDT) Triglycerides 64 <150 mg/dL [facility] Comment:Desirable Triglyceri de: less than 150 mg/dLBorderline High Triglyceride 150-199 mg/dLHigh Triglyceride: 200-499 mg/dLVery High Triglyceride: greater than or equal to 5OO mg/dL Cholesterol 189 <200 mg/dL [facility] Comment:Desirable Cholestero l: less than 200 mg/dLBorderline High Cholesterol: 200-239 mg/dLHigh Cholesterol: greater than 239 mg/dL LDL Cholesterol Calculated 131(H) <100 mg/dL [facility] Comment:Desirable LDL: less than 100 mg/dLNear Optimal/Above Optimal LDL: 110- 129 mg/dLBorderline High LDL: 130-159 mg/dLHigh LDL: 160-189 mg/dLVery High LDL: greater than or equal to 190 mg/dL HDL Cholesterol 46 >40 mg/dL [facility] Comment:Desirable HDL: great er than 40 mg/dL Note: This HDL assay may give artificially low results in patients with liver disease. Blood Venous blood specimen / Unknown 09/16/2023 9:41 AM EDT 09/16/2023 9:41 AM EDT us Tom Trujillo ANP LAB BLOOD ORDERABLES Final Resul t [facility] [address] [place] [address] [phone] * BI Mammogram Screening Tomosynthesis Bilateral (04/22/2023 3:15 PM EST) Anatomical Region Laterality Modality Breast Bilateral Mammography 04/22/2023 3:15 PM EST Narrative 05/07/2023 8:31 PM EST ? [facility] [place] ? [address] ?[place] [address] ? Mammography Report ? Signed ? Patient: Rudolph Torres,Virgenmina ?MR ?? #: [id number] ? : 1955 ?Acct:[id number] ? Age/Sex: 67 / F ?ADM Date: 12/11/23 ? Loc: HO.MAMMO ? Attending Dr: Tom Trujillo FINAL CIGAR AND BOX EXAMINER ? Ordering Physician: TOM TRUJILLO NP ?Results: 1Negative ? Date of Service: 04/22/23 ?Follow Up: 1 Year From Orig ?? inal Mammogram ? Procedure(s): MM tomosynthesis screening BI ?? Accession Number(s): [id number] ? cc: CASSANDRA,TOM DUNAWAY ? EXAMINATION: ?? MM SCREENING DIGITAL BREAST TOMOSYNTHESIS, BILATERAL ? CLINICAL INFORMATION: ? Screening. Asymptomatic. ? COMPARISON: ?? Mammography: This study is compared with prior exams dating back to ?? 2015. ? TECHNIQUE: ?? Digital breast tomosynthesis is [...] MD in OV> ? 05/07/232026 ? DD/ 14 ? TD/TT: ? Anvil Worker: ? Procedure Note Laz, Masood - 05/07/2023 [facility] [address] [place] [address] Mammography Report Signed Patient: Kenyon Rajan #: [id number] : 4Acct:[id number] Age/Sex: 67 / FADM Date: 04/22/23 Loc: HO.MAMMO Attending Dr: Tom Trujillo FINAL CIGAR AND BOX EXAMINER Ordering Physician: TOM TRUJILLO NPResults: 1Negative Date of Service: 04/22/23Follow Up: 1 Year From Orig inal Mammogram Procedure(s): MM tomosynthesis screening BI Accession Number(s): [id number] cc: TOM TRUJILLO NP EXAMINATION: MM SCREENING [...] MD in OV> 05/07/232026 DD/ 1515 TD/TT: Anvil Worker: us Tom Trujillo ANP IMG BI PROCEDURES Final Result * Hm Colonoscopy (10/10/2021) Colonoscopy Normal Normal us Historical Provider HEALTH MAINTENANCE Final Result from Last 3 Months or Most Recently Relevant to Health Maintenance Insurance [facility] STANDARD Care Teams Warehouse Attendant Relationship Specialty Start Date End Date Tom Trujillo ANP [address] [place] [address] PCP - General Family Medicine 09/29/19 Everett Rojas MD [address] [place] [address] 3rd [place] [address] Cardiology 04/21/24
--- OUTSIDE RECORDS SUMMARY | 2024-07-06 14:14 | XMS_ITS | Encounter Summary ---
Author Organization [employer] Address [address] [place] [address] 7t [place] [address] Care Team Providers Care Clinical Writer Name Role Phone Sudha Mitchell Primary Care Provider [phone] Everett Rojas MD Unavailable [phone] Reason for Visit * Reason Comments Med Refill Encounter Details Date Type Department Care Team (Late st Contact Info) Description 08/14/2022 Refill [facility] [address] [place] [address] [place] [facility] [address] [place] [address] Lumbago of lumbar region with sciatica Social [...] Description 07/06/2024 2:15 PM EST Office Visit [facility] [address] [place] [address] Sudha Mitchell ANP [address] [place] [address] Arrived 07/31/2024 8:30 AM EDT Clinical Support [facility] [address] [place] [address] Nichole Lucio RN [address] [place] [address] documented as of this encounter Visit Diagnoses Diagnosis Lumbago of lumbar region with sciatica documented in this encounter Care Teams Clinical Writer Relationship Specialty Start Date End Date Sudha Mitchell ANP [address] [place] [address] PCP - General Family Medicine 09/29/19 Everett Rojas MD [address] [place] [address] 3rd [place] [address] Cardiology 04/21/24 documented as of this encounter
--- OUTSIDE RECORDS SUMMARY | 2024-07-06 14:14 | XMS_ITS | Encounter Summary ---
Author Organization [employer] Address [address] [facility] 7t [place] [address] Care Team Providers Care Supervisor Lime Name Role Phone Stephen Sudha WEI Primary Care Provider [phone] Everett Rojas MD Unavailable [phone] Encounter Details Date Type Department Care Team (Latest Contact Info) Description 07/06/2024 Travel Social History Tobacco Use Types Packs/Day [...] Description 07/06/2024 2:15 PM EST Office Visit [address] [address] Sudha Mitchell ANP [address] [place] [address] Arrived 07/31/2024 8:30 AM EDT Clinical Support [address] [address] Nichole Lucio RN [address] [place] [address] documented as of this encounter Visit Diagnoses Not on filedocumented in this encounter Care Teams Supervisor Lime Relationship Specialty Start Date End Date Sudha Mitchell ANP [address] [place] [address] PCP - General Family Medicine 09/29/19 Everett Rojas MD [address] [place] [address] 3rd [place] [address] Cardiology 04/21/24 documented as of this encounter
--- OUTSIDE RECORDS SUMMARY | 2024-07-06 14:14 | XMS_ITS | Encounter Summary ---
Author Organization [employer] Address [address] [facility] 7t [place] [address] Care Team Providers Care Clay Plant Treater Name Role Phone Sudha Mitchell Primary Care Provider [phone] Everett Rojas MD Unavailable [phone] Encounter Details Date Type Department Care Team ([facility] st Contact Info) Description 07/06/2024 2:15 PM EST Office Visit [facility] [address] [place], [place] [phone] Sudha Mitchell ANP [address] [place] [address] Arrived Social History Tobacco Use Types Packs/Day Years [...] Care Team (Late st Contact Info) Description 07/31/2024 8:30 AM EDT Clinical Support [facility] [address] [place] [address] Nichole Lucio, MONAE [address] [place] [address] documented as of this encounter Visit Diagnoses Not on filedocumented in this encounter Care Teams Clay Plant Treater Relationship Specialty Start Date End Date Sudha Mitchell ANP [address] [place] [address] PCP - General Family Medicine 09/29/19 Everett Rojas MD [address] [place] [address] Drive 3rd [place] [address] Cardiology 04/21/24 documented as of this encounter
--- OUTSIDE RECORDS SUMMARY | 2024-07-06 14:14 | XMS_ITS | Encounter Summary ---
Author Organization [employer] Address [address] [facility] [address] 7t [place] [address] Care Team Providers Care Yard Engineer Name Role Phone Sudha Mitchell Primary Care Provider Everett Rojas MD Unavailable [phone] Reason for Visit * Reason Onset Date Comments chart prep 06/30/2024 Encounter Details Date Type Department Care Team ([facility] st Contact Info) Description 06/30/2024 Telephone [facility] [address] [place] [address] Barbie Munroe MA chart prep Social History [...] Description 07/06/2024 2:15 PM EST Office Visit [address] [address] Sudha Mitchell ANP [address] [place] [address] Arrived 07/31/2024 8:30 AM EDT Clinical Support [address] [address] Nichole Lucio RN [address] [place] [address] documented as of this encounter Visit Diagnoses Not on filedocumented in this encounter Care Teams Yard Engineer Relationship Specialty Start Date End Date Sudha Mitchell ANP [address] [place] [address] PCP - General Family Medicine 09/29/19 Everett Rojas MD [address] 3rd [place] [address] Cardiology 04/21/24 documented as of this encounter
--- OUTSIDE RECORDS SUMMARY | 2024-07-06 14:14 | XMS_ITS | Encounter Summary ---
Author Organization [employer] Address [address] [place] [address] 7t [place] [address] Care Team Providers Care Talent Acquisition Relationship Manager Name Role Phone Sudha Mitchell Primary Care Provider [phone] Everett Rojas MD Unavailable [phone] Reason for Visit * Reason Comments Med Refill Encounter Details Date Type Department Care Team (Late st Contact Info) Description 06/22/2022 Refill [facility] [address] [place] [address] Sudha Mitchell ANP [address] [place] [address] Lumbago of lumbar region with sciatica Social [...] Description 07/06/2024 2:15 PM EST Office Visit [address] [address] Sudha Mitchell ANP [address] [place] [address] Arrived 07/31/2024 8:30 AM EDT Clinical Support [facility] [address] [place] [address] [phone] Nichole Lucio RN [address] [place] [address] documented as of this encounter Visit Diagnoses Diagnosis Lumbago of lumbar region with sciatica documented in this encounter Care Teams Talent Acquisition Relationship Manager Relationship Specialty Start Date End Date Sudha Mitchell ANP [address] [place] [address] PCP - General Family Medicine 09/29/19 Everett Rojas MD [address] [place] [address] 3rd [place] [address] Cardiology 04/21/24 documented as of this encounter
--- OUTSIDE RECORDS SUMMARY | 2024-07-06 14:14 | XMS_ITS | Encounter Summary ---
Author Organization [employer] Address [address] [place] [address] 7t [place] [address] Care Team Providers Care Early Childhood Teacher Name Role Phone Sudha Mitchell Primary Care Provider [phone] Everett Rojas MD Unavailable [phone] Reason for Visit * Reason Comments Med Refill Encounter Details Date Type Department Care Team (Late st Contact Info) Description 05/02/2022 Refill [facility] MED & PEDS 505 [place], [place] [phone] Sudha Mitchell ANP 230 [place] [address] Cervicalgia Social History Tobacco Use Types Packs/Day [...] Description 07/06/2024 2:15 PM EST Office Visit [facility] [address] [place] [address] Sudha Mitchell ANP 230 [place] [address] Arrived 07/31/2024 8:30 AM EDT Clinical Support [facility] [address] [place] [address] Nichole Lucio RN 505 [place] [address] documented as of this encounter Visit Diagnoses Diagnosis Cervicalgia documented in this encounter Care Teams Early Childhood Teacher Relationship Specialty Start Date End Date Sudha Mitchell ANP [address] [place] [address] PCP - General Family Medicine 09/29/19 Everett Rojas MD [address] [place] [address] 3rd [place] [address] Cardiology 04/21/24 documented as of this encounter
--- OUTSIDE RECORDS SUMMARY | 2024-07-06 14:14 | XMS_ITS | Encounter Summary ---
Author Organization [employer] Address [address] [place] [address] 7t [place] [address] Care Team Providers Care Setter Juice Packaging Machines Name Role Phone Sudha Mitchell Primary Care Provider [phone] Everett Rojas MD Unavailable [phone] Reason for Visit * Reason Onset Date Comments Med Refill 11/23/2022 Encounter Details Date Type Department Care Team (Late st Contact Info) Description 11/23/2022 Telephone [facility] MEDICINE 230 [place], [place] [phone] Sudha Mitchell ANP 230 [place] [address] Med Refill Social History Tobacco Use Types [...] Description 07/06/2024 2:15 PM EST Office Visit [address] [address] Sudha Mitchell ANP 230 [place] [address] Arrived 07/31/2024 8:30 AM EDT Clinical Support [address] [address] Nichole Lucio, MONAE 505 [place] [address] documented as of this encounter Visit Diagnoses Not on filedocumented in this encounter Care Teams Setter Juice Packaging Machines Relationship Specialty Start Date End Date Sudha Mitchell ANP [address] [place] [address] PCP - General Family Medicine 09/29/19 Everett Rojas MD [address] [place] [address] Drive 3rd [place] [address] Cardiology 04/21/24 documented as of this encounter
--- OUTSIDE RECORDS SUMMARY | 2024-07-06 14:15 | XMS_ITS | Encounter Summary ---
Author Organization [employer] Address [address] [facility] 7t [place] [address] Care Team Providers Care Membership Sales Representative Name Role Phone Sudha Mitchell Primary Care Provider [phone] Everett Rojas MD Unavailable [phone] Reason for Visit * Reason Onset Date Comments Pre-op Visit 12/20/2023 Encounter Details Date Type Department Care Team ([facility] st Contact Info) Description 12/20/2023 Telephone [facility] MEDICINE 230 [place], [place] [phone] Sudha Mitchell ANP 230 [place] [address] Pre-op Visit Social History Tobacco Use Types [...] [facility] Surgeon's office number: [phone] Ext [phone] Surgeon's office fax number: [phone] Contact name: Mara Last office note from surgeon requested: Yes documented in this encounter Plan of Treatment Upcoming Encounters Date Type Department Care Team ([facility] st Contact Info) Description 07/06/2024 2:15 PM EST Office Visit [facility] MEDICINE [address] [place] [address] Sudha Mitchell ANP 230 [place] [address] Arrived 07/31/2024 8:30 AM EDT Clinical Support [facility] [address] [place] [address] Nichole Lucio, RN 505 [place] [address] documented as of this encounter Visit Diagnoses Not on filedocumented in this encounter Care Teams Membership Sales Representative Relationship Specialty Start Date End Date Sudha Mitchell ANP [address] [place] [address] PCP - General Family Medicine 09/29/19 Everett Rojas MD [address] [place] [address] 3rd [place] [address] Cardiology 04/21/24 documented as of this encounter
--- OUTSIDE RECORDS SUMMARY | 2024-07-06 14:15 | XMS_ITS | Encounter Summary ---
Author Organization [employer] Address 75 [facility] 7t [place] [address] Care Team Providers Care Earth Boring Machine Operator Name Role Phone Sudha Mitchell Primary Care Provider [phone] Everett Rojas MD Unavailable [phone] Reason for Visit * Reason Comments Med Refill Encounter Details Date Type Department Care Team (Late st Contact Info) Description 09/18/2023 Refill [facility] [address] [place], [place] [phone] Sudha Mitchell ANP [address] [place] [address] Lumbago of lumbar region with sciatica Social [...] 07/06/2024 2:15 PM EST Office Visit [address] [address] Sudha Mitchell ANP [address] [place] [address] Arrived 07/31/2024 8:30 AM EDT Clinical Support [address] [address] Nichole Lucio, MONAE 505 [place] [address] documented as of this encounter Visit Diagnoses Diagnosis Lumbago of lumbar region with sciatica documented in this encounter Care Teams Earth Boring Machine Operator Relationship Specialty Start Date End Date Sudha Mitchell ANP [address] [place] [address] PCP - General Family Medicine 09/29/19 Everett Rojas MD [address] [place] [address] 3rd [place] [address] Cardiology 04/21/24 documented as of this encounter
--- OUTSIDE RECORDS SUMMARY | 2024-07-06 14:15 | XMS_ITS | Encounter Summary ---
Author Organization [employer] Address 75 [facility] 7t [place] [address] Care Team Providers Care Math And Science Division Chair Name Role Phone Stephen Sudha WEI Primary Care Provider [phone] Everett Rojas MD Unavailable [phone] Reason for Visit * Reason Comments Med Refill Encounter Details Date Type Department Care Team ([facility] st Contact Info) Description 12/30/2023 Refill [facility] MEDICINE 230 [place] [address] Fabi Boudreaux MD 230 [place] [address] Lumbago of lumbar region with sciatica Social [...] 07/06/2024 2:15 PM EST Office Visit [address] [address] Sudha Mitchell ANP [address] [place] [address] Arrived 07/31/2024 8:30 AM EDT Clinical Support [address] [address] Nichole Lucio, MONAE 505 [place] [address] documented as of this encounter Visit Diagnoses Diagnosis Lumbago of lumbar region with sciatica documented in this encounter Care Teams Math And Science Division Chair Relationship Specialty Start Date End Date Sudha Mitchell ANP [address] [place] [address] PCP - General Family Medicine 09/29/19 Everett Rojas MD [address] [place] [address] 3rd [place] [address] Cardiology 04/21/24 documented as of this encounter
--- OUTSIDE RECORDS SUMMARY | 2024-07-06 14:15 | XMS_ITS | Encounter Summary ---
Author Organization [employer] Address 75 [facility] 7t [place] [address] Care Team Providers Care Cosmetology Educator Name Role Phone Sudha Mitchell Primary Care Provider [phone] Everett Rojas MD Unavailable [phone] Reason for Visit * Reason Comments Med Refill Encounter Details Date Type Department Care Team (Late st Contact Info) Description 02/20/2024 Refill [facility] [address] [place], [place] [phone] Sudha Mitchell ANP [address] [place] [address] Lumbago of lumbar region with sciatica Social [...] Description 07/06/2024 2:15 PM EST Office Visit [address] [address] Sudha Mitchell ANP [address] [place] [address] Arrived 07/31/2024 8:30 AM EDT Clinical Support [address] [address] Nichole Lucio, MONAE 505 [place] [address] documented as of this encounter Visit Diagnoses Diagnosis Lumbago of lumbar region with sciatica documented in this encounter Care Teams Cosmetology Educator Relationship Specialty Start Date End Date Sudha Mitchell ANP [address] [place] [address] PCP - General Family Medicine 09/29/19 Everett Rojas MD [address] 3rd [place] [address] Cardiology 04/21/24 documented as of this encounter
--- OUTSIDE RECORDS SUMMARY | 2024-07-06 14:15 | XMS_ITS | Encounter Summary ---
Author Organization [employer] Address 75 [facility] 7t [place] [address] Care Team Providers Care Manager Of Manufacturing Name Role Phone Stephen Sudha WEI Primary Care Provider [phone] Everett Rojas MD Unavailable [phone] Encounter Details Date Type Department Care Team [...] Description 07/06/2024 2:15 PM EST Office Visit [address] [address] Sudha Mitchell ANP [address] [place] [address] Arrived 07/31/2024 8:30 AM EDT Clinical Support [address] [address] Nichole Lucio RN 505 [place] [address] documented as of this encounter Visit Diagnoses Not on filedocumented in this encounter Care Teams Manager Of Manufacturing Relationship Specialty Start Date End Date Sudha Mitchell ANP [address] [place] [address] PCP - General Family Medicine 09/29/19 Everett Rojas MD [address] [place] [address] Drive 3rd [place] [address] Cardiology 04/21/24 documented as of this encounter
--- OUTSIDE RECORDS SUMMARY | 2024-07-06 14:15 | XMS_ITS | Encounter Summary ---
Author Organization [employer] Address 75 [facility] 7t [place] [address] Care Team Providers Care Beauty Culturist Name Role Phone Sudha Mitchell Primary Care Provider [phone] Everett Rojas MD Unavailable [phone] Reason for Visit * Reason Comments Med Refill Encounter Details Date Type Department Care Team ([facility] st Contact Info) Description 06/10/[address] [facility] MEDICINE 230 [place], [place] [phone] Sudha Mitchell ANP 230 [place] [address] Social History Tobacco Use Types Packs/Day Years [...] Description 07/06/2024 2:15 PM EST Office Visit [address] [address] Sudha Mitchell ANP [address] [place] [address] Arrived 07/31/2024 8:30 AM EDT Clinical Support [address] [address] Nichole Lucio, MONAE 505 [place] [address] documented as of this encounter Visit Diagnoses Not on filedocumented in this encounter Care Teams Beauty Culturist Relationship Specialty Start Date End Date Sudha Mitchell ANP [address] [place] [address] PCP - General Family Medicine 09/29/19 Everett Rojas MD [address] 3rd [place] [address] Cardiology 04/21/24 documented as of this encounter
--- OUTSIDE RECORDS SUMMARY | 2024-07-06 14:15 | XMS_ITS | Encounter Summary ---
Author Organization [employer] Address 75 [facility] 7t [place] [address] Care Team Providers Care Sugar Sampler Name Role Phone Sudha Mitchell Primary Care Provider [phone] Everett Rojas MD Unavailable [phone] Reason for Visit * Reason Comments Med Refill Encounter Details Date Type Department Care Team ([facility] st Contact Info) Description 10/18/2023 Refill [facility] MEDICINE 230 [place] [address] Sudha Mitchell ANP 230 [place] [address] Lumbago of lumbar region with sciatica Social [...] Description 07/06/2024 2:15 PM EST Office Visit [address] [address] Sudha Mitchell ANP [address] [place] [address] Arrived 07/31/2024 8:30 AM EDT Clinical Support [address] [address] Nichole Lucio RN 505 [place] [address] documented as of this encounter Visit Diagnoses Diagnosis Lumbago of lumbar region with sciatica documented in this encounter Care Teams Sugar Sampler Relationship Specialty Start Date End Date Sudha Mitchell ANP [address] [place] [address] PCP - General Family Medicine 09/29/19 Everett Rojas MD [address] [place] [address] 3rd [place] [address] Cardiology 04/21/24 documented as of this encounter
--- OUTSIDE RECORDS SUMMARY | 2024-07-06 14:15 | XMS_ITS | Encounter Summary ---
Author Organization [employer] Address 75 [facility] 7t [place] [address] Care Team Providers Care Aluminum Siding Applicator Name Role Phone Sudha Mitchell Primary Care Provider [phone] Everett Rojas MD Unavailable [phone] Reason for Visit * Reason Comments Med Refill Encounter Details Date Type Department Care Team (Late st Contact Info) Description 03/23/[address] [facility] CHC MED & PEDS [address] [place], [place] [phone] Sudha Mitchell ANP [address] [place] [address] Lumbago of lumbar region with sciatica Social [...] Description 07/31/2024 8:30 AM EDT Clinical Support [facility] MEDICINE 230 [place] [address] Nichole Lucio RN 505 [place] [address] documented as of this encounter Visit Diagnoses Diagnosis Lumbago of lumbar region with sciatica documented in this encounter Care Teams Aluminum Siding Applicator Relationship Specialty Start Date End Date Sudha Mitchell ANP 230 [place] [address] PCP - General Family Medicine 09/29/19 Everett Rojas MD [address] [place] [address] Drive 3rd [place] [address] Cardiology 04/21/24 documented as of this encounter
--- OUTSIDE RECORDS SUMMARY | 2024-07-06 14:15 | XMS_ITS | Encounter Summary ---
Author Organization [employer] Address [address] [place] [address] 7t [place] [address] Care Team Providers Care Currency Exchange Specialist Name Role Phone Sudha Mitchell Primary Care Provider Everett Rojas MD Unavailable [phone] Reason for Visit * Reason Comments Med Refill Encounter Details Date Type Department Care Team (Late st Contact Info) Description 01/22/[address] [facility] MEDICINE [address] [place] [address] [phone] Sudha Mitchell ANP 230 [place], [place] [phone] Lumbago of lumbar region with sciatica Social [...] Description 07/06/2024 2:15 PM EST Office Visit [facility] MEDICINE [address] [place] [address] [phone] Sudha Mitchell ANP 230 [place], [place] [phone] Arrived 07/31/2024 8:30 AM EDT Clinical Support [facility] MEDICINE 230 [place] [address] Nichole Lucio RN [address] [place] [address] documented as of this encounter Visit Diagnoses Diagnosis Lumbago of lumbar region with sciatica documented in this encounter Care Teams Currency Exchange Specialist Relationship Specialty Start Date End Date Sudha Mitchell ANP 230 [place] [address] PCP - General Family Medicine 09/29/19 Everett Rojas MD [address] [place] [address] 3rd [place] [address] Cardiology 04/21/24 documented as of this encounter
--- OUTSIDE RECORDS SUMMARY | 2024-07-06 14:15 | XMS_ITS | Encounter Summary ---
Author Organization [employer] Address 75 [facility] 7t [place] [address] Care Team Providers Care Medical Aide Name Role Phone Stephen Sudha WEI Primary Care Provider [phone] Everett Rojas MD Unavailable [phone] Reason for Visit * Reason Comments controlled substance treatment Encounter Details Date Type Department Care Team (Latest Contact Info) Description 06/12/2024 8:30 AM EST Clinical Support [facility] MEDICINE 230 [place] [address] Nichole Lucio, MONAE 505 [place] [address] Chronic midline low back pain with right-sided [...] RN - 06/12/2024 8:30 AM EST S: BORING MACHINE OPERATOR HORIZONTAL initial NV. Patient is prescribed Tramadol 50mg [...] medication usually pro huang 80% pain relief. BORING MACHINE OPERATOR HORIZONTAL Agreement initiated today. O: VSS. BORING MACHINE OPERATOR HORIZONTAL tier 4. BUSINESS ACCOUNT MANAGER checked on 06/12/24. No discrepancies noted. Medication refilled on 06/09/24.Pill count not performed as it is patient's first visit and she stated she forgot to bring pills. Reminded patient to bring pills to all the BORING MACHINE OPERATOR HORIZONTAL visits/ when requested. Patient takes med only [...] take medication only as directed.f/u for next BORING MACHINE OPERATOR HORIZONTAL NV scheduled for 08/01/24 @ 8:30am. F/u with PCP 07/06/24. Reminder slip given. f/u sooner PRN. Patient verbalized understanding and agreed to plan. documented in this encounter Plan of Treatment Upcoming Encounters Date Type Department Care Team (Late st Contact Info) Description 07/06/2024 2:15 PM EST Office Visit [address] [address] Sudha Mitchell ANP [address] [place] [address] Arrived 07/31/2024 8:30 AM EDT Clinical Support [address] [address] Nichole Lucio RN 505 [place], [place] [phone] documented as of this encounter Procedures Procedure [...] - 06/12/2024 8:54 AM EST .UTOX cup Lot#[id number] Exp. 02/04/26 Internal Pass Control Sudha WEI POINT OF CARE TEST ENTER/EDIT OR DERABLES Final Result documented in this encounter Visit Diagnoses Diagnosis 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ciatica documented in this encounter Care Teams Medical Aide Relationship Specialty Start Date End Date Sudha Mitchell ANP [address] [place] [address] PCP - General Family Medicine 09/29/19 Everett Rojas MD [address] 3rd [place] [address] Cardiology 04/21/24 documented as of this encounter
--- OUTSIDE RECORDS SUMMARY | 2024-07-06 14:15 | XMS_ITS | Encounter Summary ---
Author Organization [employer] Address 75 [facility] 7t [place] [address] Care Team Providers Care Mixer Blender Name Role Phone Sudha Mitchell Primary Care Provider [phone] Everett Rojas MD Unavailable Encounter Details Date Type Department Care Team ([facility] st Contact Info) Description 06/12/2024 Telephone [facility] MED & PEDS 505 [place] [address] Nichole Lucio, MONAE 505 [place], [place] Social History Tobacco Use Types Packs/Day [...] the past 12 months, has t he [employer], oil or water company threatened to shut [...] RN - 06/12/2024 9:42 AM EST .What PARK AIDE Tier would you like this patient to be? Tier 1 = HIGH RISK, Monthly PARK AIDE visits Tier 2 = MODerate RISK, Q3 Month visits Tier 3 = LOW RISK = Q4-6 month visits documented in this encounter Plan of Treatment Upcoming Encounters Date Type Department Care Team (Late st Contact Info) Description 07/06/2024 2:15 PM EST Office Visit [facility] MEDICINE [address] [place] [address] Sudha Mitchell ANP 230 [place] [address] Arrived 07/31/2024 8:30 AM EDT Clinical Support [facility] MED[facility]INE [address] [place] [address] Nichole Lucio RN [address] [place] [address] documented as of this encounter Visit Diagnoses Not on filedocumented in this encounter Care Teams Mixer Blender Relationship Specialty Start Date End Date Sudha Mitchell ANP [address] [place] [address] PCP - General Family Medicine 09/29/19 Everett Rojas MD [address] [place] [address] Drive 3rd Floor [place] [address] Cardiology 04/21/24 documented as of this encounter
[2024-07-09 17:59] LABS: Zinc 53 mcg/dL (60-130)
== END 2024-07-06 11:30 | disposition home or self-care (01) ==
LOC: HO.LAB 11:29
PROVIDERS: PCP Nurse Practitioner Primary Care; Visit Provider Internal Medicine Gastroenterology
DX: K75.81 Nonalcoholic steatohepatitis (NASH) (principal); K74.60 Unspecified cirrhosis of liver; R79.89 Other specified abnormal findings of blood chemistry
CPT/HCPCS: 36415; 80053; 82306; 84630; 85025; 85610; 99212

== ENCOUNTER 2024-07-31 08:59 | Outpatient (REF) | payer MEDICAID, SELFPAY ==
[2024-07-31 11:11] LABS: MANUAL DIFF FLAG NO
[2024-07-31 11:36] LABS: Basophils Percent Auto 0.5 % (0-2); Eosinophils Absolute Auto 0.1 X10*3/uL (0.0-0.4); Eosinophils Percent Auto 2.2 % (0-4); Hematocrit 39.4 % (37.0-47.0); Hemoglobin 12.8 g/dl (12.0-16.0); Imm Gran Abs Auto 0.01 X10*3/uL (0.00-0.03); Imm Gran Pct Auto 0.2 % (0.0-0.4); Lymphocytes Absolute Auto 0.9 X10*3/uL (1.2-4.9); Lymphocytes Percent Auto 22.1 % (20-40); Mean Corpuscular HGB Conc 32.5 g/dl (31.0-35.0); Mean Corpuscular Volume 92.5 fL (80.0-98.0); Mean Platelet Volume 10.6 fL (9.4-12.3); Monocytes Absolute Auto 0.4 X10*3/uL (0.1-1.2); Monocytes Percent Auto 10.6 % (2-11); Neutrophils Absolute Auto 2.7 x10*3/uL (2.0-8.3); Neutrophils Percent Auto 64.4 % (45-73); Platelet Count 139 X10*3/uL (160-400); Red Blood Count 4.26 X10*6/uL (4.20-5.50); Red Cell Distribution Width 14.4 % (11.0-16.0); White Blood Count 4.2 X10*3/uL (4.8-10.8)
[2024-07-31 12:05] LABS: HBS Num1 18.86 mIU/mL (0-7.99); HBc Num1 0.09 S/CO (0.00-0.79); HBsAGNum1 0.31 S/CO (0.00-0.99); Hepatitis B Core Antibody Nonreactive (Nonreactive); Hepatitis B Surface Antigen Negative (Negative); ~Hepatitis B Surface Antibody REACTIVE (Nonreactive)
== END 2024-07-31 09:00 | disposition home or self-care (01) ==
LOC: HO.HHCL 08:59
PROVIDERS: Visit Provider Nurse Practitioner Primary Care
DX: Z00.00 Encounter for general adult medical examination without abnormal findings (principal); D69.6 Thrombocytopenia, unspecified
CPT/HCPCS: 36415; 85025; 86704; 86706; 87340

== ENCOUNTER 2024-08-24 11:48 | Outpatient (AMB) | payer MEDICAID, SELFPAY ==
--- NOTE | 2024-08-24 11:58 | AM.OFFVISNUR ---
Intake Visit Reasons: Hep B #3 Allergies rivaroxaban [From XARELTO] Allergy (Intermediate, Verified 07/06/24 11:44) GI BLEEDING SEAFOOD Allergy (Intermediate, Uncoded 12/31/23 19:11) RASH Immunizations Engerix-B (PF) 20 mcg/mL intramuscular suspension Performing Provider: Darius Tamayo MD Performing Location: [facility] Administered by: Esther Lacy RN on 08/24/24 11:58 Dose Route Admin Location Dispensed Lot Number Expiration Date [facility] Electrotype Molder 1 mL IM Left Deltoid 1 mL [id number] 12/08/26 10650-209-36 [facility] VIS Given Date VIS Provided VIS Publication Date 08/24/24 Single Vaccine 22 Eligibility Eligibility Date Funding Source Not [facility] Eligible 08/24/24 Private Assessment & Plan Assessment & Plan Orders: Orders Hepatitis B Adult Immunization Today Z23 - Encounter for immunization Medications: New Engerix-B (PF) (hepatitis B virus vacc.rec(PF)) 1 mL IM ONCE 1 mL 0RF NS Z23 - Encounter for immunization Coding Level of Care Code Established Pt Est Pt Level 1 (33362) Patient Type Established Medical Decision Making Straight Forward
--- OUTSIDE RECORDS SUMMARY | 2024-08-24 13:51 | XMS_ITS | Encounter Summary ---
Author Organization [employer] Address [address] [place] [address] 7t [place] [address] Care Team Providers Care Dental Service Chief Name Role Phone Sudha Mitchell Primary Care Provider [phone] Everett Rojas MD Unavailable [phone] Reason for Visit * Reason Comments Med Refill Encounter Details Date Type Department Care Team (Late st Contact Info) Description 06/22/2022 Refill [facility] MEDICINE [address] [place] [address] Sudha Mitchell ANP 230 [place] [address] Lumbago of lumbar region with sciatica Social [...] Care Team (Late st Contact Info) Description 10/06/2024 11:00 AM EDT Office Visit [address] [address] Sudha Mitchell ANP 230 [place] [address] 10/23/2024 9:00 AM EDT Clinical Support [facility] MEDICINE [address] [place] [address] [phone] Nichole Lucio RN 505 [place] [address] documented as of this encounter Visit Diagnoses Diagnosis Lumbago of lumbar region with sciatica documented in this encounter Care Teams Dental Service Chief Relationship Specialty Start Date End Date Sudha Mitchell ANP [address] [place] [address] PCP - General Family Medicine 09/29/19 Everett Rojas MD [address] [place] [address] 3rd [place] [address] Cardiology 04/21/24 documented as of this encounter
--- OUTSIDE RECORDS SUMMARY | 2024-08-24 13:51 | XMS_ITS | Encounter Summary ---
Author Organization [employer] Address [address] [place] [address] 7t [place] [address] Care Team Providers Care Metal Mover Name Role Phone Sudha Mitchell Primary Care Provider [phone] Everett Rojas MD Unavailable [phone] Reason for Visit * Reason Onset Date Comments Med Refill 11/23/2022 Encounter Details Date Type Department Care Team (Late st Contact Info) Description 11/23/2022 Telephone [facility] MEDICINE 230 [place], [place] [phone] Sudha Mitchell ANP 230 [place] [address] Med Refill Social History Tobacco Use Types [...] Department Care Team (Late Contact Info) Description 10/06/2024 11:00 AM EDT Office Visit [address] [address] Sudha Mitchell ANP 230 [place] [address] 10/23/2024 9:00 AM EDT Clinical Support [address] [address] Nichole Lucio, MONAE 505 [place], [place] [phone] documented as of this encounter Visit Diagnoses Not on filedocumented in this encounter Care Teams Metal Mover Relationship Specialty Start Date End Date Sudha Mitchell ANP [address] [place] [address] PCP - General Family Medicine 09/29/19 Everett Rojas MD [address] [place] [address] Drive 3rd [place] [address] Cardiology 04/21/24 documented as of this encounter
--- OUTSIDE RECORDS SUMMARY | 2024-08-24 13:51 | XMS_ITS | Encounter Summary ---
Author Organization [employer] Address [address] [place] [address] 7t [place] [address] Care Team Providers Care Press Hand Supervisor Name Role Phone Sudha Mitchell Primary Care Provider [phone] Everett Rojas MD Unavailable Reason for Visit * Reason Comments Med Refill Encounter Details Date Type Department Care Team (Late st Contact Info) Description 05/02/2022 Refill [facility] [address] [place], [place] [phone] Sudha Mitchell ANP [address] [place] [address] Cervicalgia Social History Tobacco Use Types Packs/Day [...] Description 10/06/2024 11:00 AM EDT Office Visit [facility] MEDICINE [address] [place] [phone] Sudha Mitchell ANP [address] [place] [address] 10/23/2024 9:00 AM EDT Clinical Support [facility] [address] [place] [address] Nichole Lucio RN [address] [place] [address] documented as of this encounter Visit Diagnoses Diagnosis Cervicalgia documented in this encounter Care Teams Press Hand Supervisor Relationship Specialty Start Date End Date Sudha Mitchell ANP [address] [place] [address] PCP - General Family Medicine 09/29/19 Everett Rojas MD [address] [place] [address] 3rd [place] [address] Cardiology 04/21/24 documented as of this encounter
--- OUTSIDE RECORDS SUMMARY | 2024-08-24 13:51 | XMS_ITS | Encounter Summary ---
Author Organization [employer] Address [address] [facility] 7t [place] [address] Care Team Providers Care Correctional Manager Name Role Phone Sudha Mitchell Primary Care Provider [phone] Everett Rojas MD Unavailable [phone] Reason for Visit * Reason Comments Med Refill Encounter Details Date Type Department Care Team (Late st Contact Info) Description 02/20/2024 Refill [facility] [address] [place], [place] [phone] Sudha Mitchell ANP [address] [place] [address] Lumbago of lumbar region with sciatica Social [...] Description 10/06/2024 11:00 AM EDT Office Visit [facility] MEDICINE [address] [place] [phone] Sudha Mitchell ANP [address] [place] [address] 10/23/2024 9:00 AM EDT Clinical Support [facility] MEDICINE [address] [place] [address] Nichole Lucio, MONAE [address] [place] [address] documented as of this encounter Visit Diagnoses Diagnosis Lumbago of lumbar region with sciatica documented in this encounter Care Teams Correctional Manager Relationship Specialty Start Date End Date Sudha Mitchell ANP [address] [place] [address] PCP - General Family Medicine 09/29/19 Everett Rojas MD [address]rd [place] [address] Cardiology 04/21/24 documented as of this encounter
--- OUTSIDE RECORDS SUMMARY | 2024-08-24 13:51 | XMS_ITS | Encounter Summary ---
Author Organization [employer] Address [address] [facility] 7t [place] [address] Care Team Providers Care Food Service Tray Attendant Name Role Phone Sudha Mitchell Primary Care Provider [phone] Everett Rojas MD Unavailable [phone] Reason for Visit * Reason Onset Date Comments Pre-op Visit 12/20/2023 Encounter Details Date Type Department Care Team ([facility] st Contact Info) Description 12/20/2023 Telephone [facility] MEDICINE [address] [place], [place] [phone] Sudha Mitchell ANP [address] [place] [address] Pre-op Visit Social History Tobacco Use Types [...] [facility] Surgeon's office number: [phone] Ext [phone] Surgeon's office fax number: [phone] Contact name: Mara Last office note from surgeon requested: Yes documented in this encounter Plan of Treatment Upcoming Encounters Date Type Department Care Team ([facility] st Contact Info) Description 10/06/2024 11:00 AM EDT Office Visit [facility] MEDICINE [address] [place] [address] Sudha Mitchell ANP [address] [place] [address] 10/23/2024 9:00 AM EDT Clinical Support [facility] [address] [place] [address] Nichole Lucio, RN [address] [place] [address] documented as of this encounter Visit Diagnoses Not on filedocumented in this encounter Care Teams Food Service Tray Attendant Relationship Specialty Start Date End Date Sudha Mitchell ANP [address] [place] [address] PCP - General Family Medicine 09/29/19 Everett Rojas MD [address] [place] [address] 3rd [place] [address] Cardiology 04/21/24 documented as of this encounter
--- OUTSIDE RECORDS SUMMARY | 2024-08-24 13:51 | XMS_ITS | Encounter Summary ---
Author Organization [employer] Address [address] [facility] 7t [place] [address] Care Team Providers Care Roof Assembler Name Role Phone Sudha Mitchell Primary Care Provider [phone] Everett Rojas MD Unavailable [phone] Reason for Visit * Reason Comments Med Refill Encounter Details Date Type Department Care Team ([facility] st Contact Info) Description 10/18/2023 Refill [facility] MEDICINE [address] [place] [address] Sudha Mitchell ANP [address] [place] [address] Lumbago of lumbar region with sciatica Social [...] Description 10/06/2024 11:00 AM EDT Office Visit [address] [address] Sudha Mitchell ANP [address] [place] [address] 10/23/2024 9:00 AM EDT Clinical Support [address] [address] Nichole Lucio RN [address] [place] [address] documented as of this encounter Visit Diagnoses Diagnosis Lumbago of lumbar region with sciatica documented in this encounter Care Teams Roof Assembler Relationship Specialty Start Date End Date Sudha Mitchell ANP [address] [place] [address] PCP - General Family Medicine 09/29/19 Everett Rojas MD [address] [place] [address] 3rd [place] [address] Cardiology 04/21/24 documented as of this encounter
--- OUTSIDE RECORDS SUMMARY | 2024-08-24 13:51 | XMS_ITS | Encounter Summary ---
Author Organization [email or web address] Address [address] [facility] 7t [place] [address] Care Team Providers Care Electric Plater Name Role Phone Stephen Sudha WEI Primary Care Provider [phone] Everett Rojas MD Unavailable [phone] Reason for Visit * Reason Comments Med Refill Encounter Details Date Type Department Care Team ([facility] st Contact Info) Description 12/30/2023 Refill [facility] MEDICINE [address] [place] [address] Fabi Boudreaux MD 230 [place] [address] Lumbago of lumbar region with sciatica Social [...] Description 10/06/2024 11:00 AM EDT Office Visit [address] [address] Sudha Mitchell ANP [address] [place] [address] 10/23/2024 9:00 AM EDT Clinical Support [address] [address] Nichole Lucio, MONAE [address] [place] [address] documented as of this encounter Visit Diagnoses Diagnosis Lumbago of lumbar region with sciatica documented in this encounter Care Teams Electric Plater Relationship Specialty Start Date End Date Sudha Mitchell ANP [address] [place] [address] PCP - General Family Medicine 09/29/19 Everett Rojas MD [address] [place] [address] 3rd [place] [address] Cardiology 04/21/24 documented as of this encounter
--- OUTSIDE RECORDS SUMMARY | 2024-08-24 13:51 | XMS_ITS | Clinical Summary ---
Author Organization [employer] Address [address] [facility] 7t [place] [address] Care Team Providers Care Senior Android Software Engineer Name Role Phone Trujillo Tom WEI Primary Care Provider [phone] Everett Rojas MD Unavailable [phone] Allergies Active Allergy Reactions Criticality Noted Date [...] after use. 2 each 1 023 Active Mometasone Furoate (Asmanex HFA) 100 MCG/ACT [...] per day. 30 patch 3 024 Active Calcium Carb-Cholecalci ferol 600-10 MG-MCG tablet TAKE 1 TABLET BY MOUTH TWICE DAILY IN THE MORNING AND AT BEDTIME 180 tablet 3 025 Active traMADol (Ultram) 50 MG tabletIndicatio ns:Lumbago of lumbar region with sciatica TAKE 1 TABLET BY MOUTH EVERY TWELVE HOURS NEEDED FOR SEVERE PAIN 56 tablet 025 Active montelukast (Singulair) 10 MG tablet TAKE 1 TABLET BY MOUTH AT BEDTIME 90 tablet 3 025 Active montelukast (Singulair) 10 MG tablet TAKE 1 TABLET BY MOUTH AT BEDTIME 90 tablet 3 024 2024 Discontinued traMADol (Ultram) 50 MG tabletIndicatio ns:Lumbago of lumbar region with sciatica TAKE 1 TABLET BY MOUTH EVERY TWELVE HOURS NEEDED FOR SEVERE PAIN 56 tablet 025 2024 Discontinued Active Problems Problem Noted Date Diagnosed Date Long-term current use of opiate analgesic 2024 Right hand pain 01/02/2024 Assessment & Plan [...] Overview (04/16/2023): EGD repeat due 05/2023 [facility] History of Helicobacter pylori infection 023 Overview (04/16/2023): tx'd 10/2021 via [facility] Cirrhosis of liver without ascites 04/16/2023 Overview (04/16/2023): compensated. thought to be d/t CARTWRIGHT vs. HCV. Follows w/ [facility] and had abd MRI to eval liver lesion 07/2022. 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 11/19/2022 Overview (11/19/2022): MRI 01/01/2022 findings copied into 09/18/22 note for reference Thrombocytopenia 03/20/2018 Trigger finger of both hands 03/20/2018 Neoplasm of liver 11/10/2017 Paroxysmal atrial fibrillation 02/07/2016 Atherosclerosis of t[place] co ronary artery of [place] heart with stable angina pectoris 11/25/2015 Benign essential hypertension 11/25/2015 Chronic hepatitis C 11/25/2015 Moderate persistent asthma 11/25/2015 Encounters Date Type Department Care Team Description 08/11/[address] [address] Tom Trujillo ANP Durable Medical Equipment (cane) 08/05/[address] [address] Tom Trujillo ANP 08/04/[address] [address] Tom Trujillo ANP 07/31/2024 8:30 AM EDT Clinical Support [address] [address] Nichole Lucio, phlebotomy director midline low back pain with right-sided sciatica (Primary Dx); Long-term current use of opiate analgesic 07/31/2024 Refill [facility] [address] [place] [address] Tom Trujillo ANP Lumbago of lumbar region with sciatica 07/31/2024 Travel 07/22/2024 Outside Procedure [facility] [address] [place] [address] Magen, Modesta, OD Presbyopia of both eyes (Primary Dx) 07/20/2024 10:15 AM EDT Office Visit [facility] [address] [place] [address] Magen, Modesta, OD Hyperopia of both eyes (Primary Dx) 07/06/2024 2:15 PM EST Office Visit [facility] [address] [place] [address] Tom Trujillo ANP Paroxysmal atrial fibrillation (CMS/HCC) (Primary Dx); Arthritis of right knee; Healthcare maintenance; Thrombocytopenia (CMS/HCC) 07/06/2024 Travel 06/30/2024 Telephone [facility] [address] [place] [address] Barbie Munroe MA chart prep 06/18/2024 Patient Outreach [facility] [address] [place] [address] Tom Trujillo ANP Pre-visit Planning (SDOH Screening negative and Tobacco screening negative) 06/12/2024 8:30 AM EST Clinical Support [facility] [address] [place] [address] Nichole Lucio RN 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ciatica 06/12/2024 Telephone [facility] [address] [place] [address] Nichole Lucio RN 06/12/2024 Travel 06/10/2024 Refill [facility] [address] [place] [address] Tom Trujillo ANP from Last 3 Months Immunizations Name Administration [...] alcohol) Depression Answer Date Recorded Patient Health Questionnaire-9 Score 7 07/06/2024 Patient Health Questionnaire-9 Score 7 07/06/2024 Last PHQ-9: Questionnaire Data Not on file 0 07/06/2024 Housing Stability Answer Date Recorded What is [...] Answer Date Recorded Patient Health Questionnaire-2 Score 2 07/06/2024 Internet Access Answer Date Recorded Internet Access [...] Sign Reading Time Taken Comments Blood Pressure 148/83 07/06/2024 2:19 PM EST Pulse 60 07/06/2024 2:19 PM EST Temperature 36.4 ??C (97.6 ??F) 07/06/2024 2:19 PM ES T Respiratory Rate 14 07/06/2024 2:19 PM EST Oxygen Saturation 96% 07/06/2024 2:19 PM EST Inhaled Oxygen Concentration - - Weight 74.8 kg (164 lb 12.8 oz) 07/06/2024 2:19 PM EST Height 147.3 cm (4' 10 ) 03/25/2024 2:51 PM EST Body Mass Index 34.44 03/25/2024 2:51 PM EST Plan of Treatment Upcoming Encounters Date Type Department Care Team (Late st Contact Info) Description 10/06/2024 11:00 AM EDT Office Visit [facility] [address] [place] [address] [phone] Tom Trujillo ANP [address] [place] [address] 10/23/2024 9:00 AM EDT Clinical Support [facility] [address] [place] [address] [phone] Nichole Lucio, MONAE [address] [place] [address] Health Maintenance Due Date Last Done Comments CT Colonography 1955 FIT DNA/Cologuard 1955 FIT 1955 FOBT 1955 Sigmoidoscopy 1955 Hepatitis A Vaccines (1 of 2 - Risk 2-dose series) 1972 RSV Patients and Patients Aged 60 years or older (1 - Risk 60-74 years 1-dose series) 2013 Zoster Vaccines (3 of 3) 01/12/2021 11/17/2020, 04/13 COVID-19 Vaccine (3 - season) 2024 08/16/2020, 07/19/2020 Hepatitis B Vaccines (3 of 3 - Risk 3-dose series) 04/21/2024 02/25/2024, 01/28/2024, 01/22/2022 Mammogram 04/22/2024 04/22/2023, 10/12, 03/21/2020, Additional history exists Colonoscopy 10/10/2024 10/10/2021 Colorectal Cancer Screening 10/10/2024 Alcohol/Substance Use Screening 03/25/2025 03/25/2024 SDOH Screening 06/18/2025 06/18/2024 Depression Screening 07/06/2025 07/06/2024, 07/06/19 25 Tobacco Screening 07/06/2025 07/06/2024 DTaP/Tdap/Td Vaccines (3 - Td or Tdap) [...] Procedure Name Priority Date/Time Associated Diagnosis Comments CBC WITH AUTO DIFFERENTIAL Routine 07/31/2024 9:00 AM EDT Thrombocytopenia (CMS/HCC) HEPATITIS B SURFACE ANTIBODY, QUALITATIVE Routine 07/31/2024 9:00 AM EDT Healthcare maintenance HEPATITIS B SURFACE ANTIGEN, EIA Routine 07/31/2024 9:00 AM EDT Healthcare maintenance HEPATITIS B CORE AB TOTAL Routine 07/31/2024 9:00 AM EDT Healthcare maintenance POCT KRISHAN-14 URINE DRUG SCREEN Routine 07/31/2024 8:56 AM EDT Long-term current use of opiate analgesic 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ciatica ZINC Routine 07/06/2024 12:41 PM EST VITAMIN D,25-OH,TOTAL,IA Routine 07/06/2024 12:41 PM EST [...] Routine 09/16/2023 9:41 AM EDT Atherosclerosis of [place] coronary artery of [place] heart with stable angina pectoris (CMS/HCC) BI MAMMOGRAM SCREENING TOMOSYNTHESIS BILATERAL Routine 04/22/2023 3:15 PM EST HM COLONOSCOPY Routine 10/10/2021 from Last 3 Months or Most Recently Relevant to Health Maintenance Results * (ABNORMAL) CBC auto differential (07/31/2024 9:00 AM EDT) Only the most recent of2 resultswithin the time period is included. White Blood Count 4.2(L) 4.8 - 10.8 X10*3/uL [facility] Red Blood Count 4.26 4.20 - 5.50 X10*6/uL [facility] Hemoglobin 12.8 12.0 - 16.0 g/dl [facility] Hematocrit 39.4 37.0 - 47.0 % [facility] Mean Corpuscular Volume 92.5 80.0 - 98.0 fL [facility] Mean Corpuscular Hemoglobin 30.0 27.0 - 33.0 pg [facility] Mean Corpuscular HGB Conc 32.5 31.0 - 35.0 g/dl [facility] Red Cell Distribution Width 14.4 11.0 - 16.0 % [facility] Platelet Count 139(L) 160 - 400 X10*3/uL [facility] Mean Platelet Volume 10.6 9.4 - 12.3 fL [facility] Neutrophils Percent Auto 64.4 45 - 73 % [facility] Imm Gran Pct Auto 0.2 0.0 - 0.4 % [facility] Lymphocytes Percent Auto 22.1 20 - 40 % [facility] Monocytes Percent Auto 10.6 2 - 11 % [facility] Eosinophils Percent Auto 2.2 0 - 4 % [facility] Basophils Percent Auto 0.5 0 - 2 % [facility] NRBC Pct Auto 0.0 0.0 - 0.2 /100WBC [facility] Neutrophils Absolute Auto 2.7 2.0 - 8.3 x10*3/uL [facility] Imm Gran Abs Auto 0.01 0.00 - 0.03 X10*3/uL [facility] Lymphocytes Absolute Auto 0.9(L) 1.2 - 4.9 X10*3/uL [facility] Monocytes Absolute Auto 0.4 0.1 - 1.2 X10*3/uL [facility] Eosinophils Absolute Auto 0.1 0.0 - 0.4 X10*3/uL [facility] Basophils Absolute Auto 0.0 0.0 - 0.2 X10*3/uL [facility] NRBC Abs Auto 0.000 0.0 - 0.012 X10*3/uL [facility] Blood Venous blood specimen / Unknown 07/31/2024 9:00 AM EDT 07/31/2024 11:07 AM EDT us Tom Trujillo ANP LAB BLOOD ORDERABLES Final Resul t [facility] [address] [place] [phone] * Hepatitis B surface antigen, EIA (07/31/2024 9:00 AM EDT) Hepatitis B Surface Ag Negative Negative [facility] Blood Venous blood specimen / Unknown 07/31/2024 9:00 AM EDT 07/31/2024 11:07 AM EDT Tom Trujillo ANP LAB BLOOD ORDERABLES Final Resul t Performing Organization Address [facility] Co de Phone Number [facility] [address] [place] [phone] * Hepatitis B Core Antibody, Total (07/31/2024 9:00 AM EDT) Hepatitis B Core Antibody Nonreactive Nonreactive [facility] Blood Venous blood specimen / Unknown 07/31/2024 9:00 AM EDT 07/31/2024 11:07 AM EDT Tom [facility] LAB BLOOD ORDERABLES Final Resul t Performing Organization Address [facility] de Phone Number [facility] [address] [place] [phone] * Hepatitis B Surface Antibody, Qualitative (07/31/2024 9:00 AM EDT) ~Hepatitis B Surface Antibody REACTIVE Nonreactive [facility] Comment:REACTIVE: > 11.99 mI U/mL Blood Venous blood specimen / Unknown 07/31/2024 9:00 AM EDT 07/31/2024 11:07 AM EDT Tom Trujillo [facility] LAB BLOOD ORDERABLES Final Resul t Performing Organization Address [facility] de Phone Number [facility] [address] [place] [phone] * POCT KRISHAN-14 Urine Drug Screen (07/31/2024 8:56 AM EDT) Only the most recent of2 resultswithin the time period is included. Urine Urine specimen obtained by clean catch procedure / Unknown 07/31/2024 8:56 AM EDT Narrative Nichole Lucio RN - 07/31/2024 8:56 AM EDT .UTOX cup Lot#[id number] Exp. 12/30/25 Internal Pass Control negative AMP, BAR, BUP, BZO, LILIYA, FTY, MDMA, MET, MOP, MTD, OXY, PCP, TCA, THC. us Tom Trujillo ANP POINT OF CARE TEST ENTER/EDIT OR DERABLES Final Result * Vitamin D, 25-Hydroxy, Total, Immunoassay (07/06/2024 12:41 PM EST) Vitamin D 25-OH Total 64.7 >30 ng/mL [facility] Comment:Health Based Referen ce Values*< 20 ng/mL Namwizytc14-64 ng/mL Insufficient> 30 ng/mL Sufficient*Yulissa MCGRATH. N [...] 1 PM EST 07/06/2024 12:46 PM EST Generic External Data Provider LAB BLOOD ORDERAB LES Final Result [facility] [address] [place] [phone] * (ABNORMAL) Zinc (07/06/2024 12:41 PM EST) Zinc 53(A) 60 - 130 mcg/dL [facility] Comment:This test was develo ped and its analytical performancecharacteristics have been determined by [employer] [place], [place]. It hasnot been cleared or approved by the U.S. Food and DrugAdministration. This assay has been validated pursuantto the CLIA regulations and is used for clinicalpurposes.THIS TEST WAS PERFORMED AT:[facility] [place] [address]ALEQIFFMYLES GRACE MD,PHD 07/06/2024 12:4 1 PM EST 07/06/2024 12:46 PM EST Generic External Data Provider LAB BLOOD ORDERAB LES Final Result Performing Organization Address [facility]/ZIP Co de Phone Number [facility] [address] [place] [phone] * (ABNORMAL) Prothrombin Time-INR (07/06/2024 12:41 PM EST) Prothrombin Time 17.8(H) 10.9 - 12.4 SEC [facility] INTERNATIONAL NORM RATIO 1.5(H) 0.9 - 1.1 [facility] Comment:INTERNATIONAL NORMAL IZED RATIO (INR) [...] ORDERAB LES Final Result Performing Organization Address [facility]/ZIP Co de Phone Number [facility] [address] [place] [phone] * (ABNORMAL) Comprehensive Metabolic Panel (07/06/2024 12:41 PM EST) Sodium 144 135 - 145 mmol/L [facility] Potassium 3.8 3.3 - 5.1 mmol/L [facility] Chloride 107 96 - 108 mmol/L [facility] Carbon Dioxide 30(H) 22 - 29 mmol/L [facility] Anion Gap 11(L) 12 - 20 [facility] Urea Nitrogen (BUN) 19(H) 9 - 16 mg/dL [facility] Creatinine, Serum 0.77 0.5 - 1.4 mg/dL [facility] Estimated Glomerular Filt Rate >60 [facility] Comment:Chronic Kidney Disea se: Estimated GFR < 60 mL/min/1.34u9Edxghu Kidney Disease: Estimated GFR < 15 mL/min/1.73m2 Glucose 97 60 - 115 mg/dL [facility] Calcium 9.6 8.4 - 10.2 mg/dL [facility] Bilirubin, Total 0.8 0.0 - 1.0 mg/dL [facility] Aspartate Amino Transferase 40(H) 5 - 31 U/L [facility] Alanine Aminotransferase 39(H) 0 - 31 U/L [facility] Total Protein 7.7 6.5 - 8.0 g/dL [facility] Albumin Level 3.6 3.5 - 5.0 g/dL [facility] Alkaline Phosphatase 47 39 - 117 U/L [facility] 07/06/2024 12:4 1 PM EST 07/06/2024 12:46 PM EST us Generic External Data Provider LAB BLOOD ORDERAB LES Final Result Performing Organization Address City/State/[facility] Co de Phone Number [facility] [address] [place] [phone] * BD DEXA Axial (06/09/2024 1:30 PM EST) Anatomical Region Laterality Modality Body Radiographic Dawn ging 06/09/2024 1:30 PM EST Narrative 06/15/2024 11:35 AM EST ? [facility] [place] ? [address] ?[place] [address] ? Mammography Report ? Signed ? Patient: Rudolph Torres,Virgenmina ?MR ?? #: [id number] ? : 1955 ?Acct:[id number] ? Age/Sex: 68 / F ?ADM Date: 01/28/25 ? Loc: HO.MAMMO ? Attending Dr: Tom Trujillo SPREADER BOX OPERATOR ? Ordering Physician: TOM TRUJILLO NP ?Results: ? Date of Service: 06/09/24 ?Follow Up: ? Procedure(s): XR DEXA axial skeleton ?? Accession Number(s): [id number] ? cc: TOM TRUJILLO NP ? EXAMINATION: ??DXA BONE DENSITY AXIAL ? HISTORY: ??Estrogen deficiency ? TECHNIQUE: EyeNetra Dual energy absorptiometry (DEXA) ?? of the [...] [facility] [employer] ?? [facility] Disease, a World Health Organization (WHO) ?? Collaborating Center. ? Electronically signed by: ??Atul Mejía MD ??06/15/2024 11:32 AM EST ?? RP ? Dictated By: ?Atul Mejía MD ? Signed By: ?<Electronically signed by Atul Mejía MD in OV> ?06/15/24 1132 ? DD/ 1330 ? TD/TT: 06/09/24 1400 ? Fire Control Assistant: ? Procedure Note Laz, Image - 06/15/2024 [facility] [address] [place] [address] Mammography Report Signed Patient: Kenyon Rajan #: [id number] : 4Acct:[id number] Age/Sex: 68 / FADM Date: 06/09/24 Loc: LEE Attending Dr: Tom Trujillo NP Ordering Physician: TOM TRUJILLOesults: Date of Service: 06/09/24Follow Up: Procedure(s): XR DEXA axial skeleton Accession Number(s): [id number] cc: TOM TRUJILLO NP EXAMINATION: DXA BONE DENSITY AXIAL HISTORY: Estrogen deficiency TECHNIQUE: EyeNetra Dual energy absorptiometry (DEXA) of the lumbar [...] of the [employer], a World Health Organization (WHO) Collaborating Center. Electronically signed by: Atul Mejía MD 06/15/2024 11:32 AM EST Dictated By: Atul Mejía MD Signed By: <Electronically signed by Atul Mejía MD in OV> 06/15/24 1132 DD/ 1330 TD/TT: 06/09/24 1400 Fire Control Assistant: us Tom Trujillo ANP IMG DXA PROCEDURES Final Result * (ABNORMAL) Lipid Panel, Standard (09/16/2023 9:41 AM EDT) Triglycerides 64 <150 mg/dL [facility] Comment:Desirable Triglyceri de: less than 150 mg/dLBorderline High Triglyceride 150-199 mg/dLHigh Triglyceride: 200-499 mg/dLVery High Triglyceride: greater than or equal to 5OO mg/dL Cholesterol 189 <200 mg/dL [facility] Comment:Desirable Cholestero l: less than 200 mg/dLBorderline High Cholesterol: 200-239 mg/dLHigh Cholesterol: greater than 239 mg/dL LDL Cholesterol Calculated 131(H) <100 mg/dL [facility] Comment:Desirable LDL: less than 100 mg/dLNear Optimal/Above Optimal LDL: 110- 129 mg/dLBorderline High LDL: 130-159 mg/dLHigh LDL: 160-189 mg/dLVery High LDL: greater than or equal to 190 mg/dL HDL Cholesterol 46 >40 mg/dL [facility] Comment:Desirable HDL: great er than 40 mg/dL Note: This HDL assay may give artificially low results in patients with liver disease. Blood Venous blood specimen / Unknown 09/16/2023 9:41 AM EDT 09/16/2023 9:41 AM EDT us Tom Trujillo ANP LAB BLOOD ORDERABLES Final Resul t [facility] [address] [place] [phone] * BI Mammogram Screening Tomosynthesis Bilateral (04/22/2023 3:15 PM EST) Anatomical Region Laterality Modality Breast Bilateral Mammography 04/22/2023 3:15 PM EST Narrative 05/07/2023 8:31 PM EST ? [place] [facility] ? [address] ?[place] [address] ? Mammography Report ? Signed ? Patient: Rudoplh Torers,Virgenmina ?MR ?? #: [id number] ? : 1955 ?Acct:[id number] ? Age/Sex: 67 / F ?ADM Date: 04/22/23 ? Loc: HO.MAMMO ? Attending Dr: Tom Trujillo SPREADER BOX OPERATOR ? Ordering Physician: TOM TRUJILLO SPREADER BOX OPERATOR ?Results: 1Negative ? Date of Service: 04/22/23 ?Follow Up: 1 Year From Orig ?? inal Mammogram ? Procedure(s): MM tomosynthesis screening BI ?? Accession Number(s): [id number] ? cc: TOM TRUJILLO NP ? EXAMINATION: [...] 05/07/232026 ? DD/ 1515 ? TD/TT: ? Fire Control Assistant: ? Procedure Note Donnicohiinterpreter, Image - 05/07/2023 [place] [facility] [address] [place] [address] Mammography Report Signed Patient: Kenyon Rajan #: [id number] : 4Acct:[id number] Age/Sex: 67 / FADM Date: 04/22/23 Loc: HO.MAMMO Attending Dr: Tom Trujillo NP Ordering Physician: TOM TRUJILLO NPResults: 1Negative Date of Service: 04/22/23Follow Up: 1 Year From Orig inal Mammogram Procedure(s): MM tomosynthesis screening BI Accession Number(s): [id number] cc: TOM TRUJILLO NP EXAMINATION: MM SCREENING [...] MD in OV> 05/07/232026 DD/ 1515 TD/TT: Fire Control Assistant: Tom WEI IMG BI PROCEDURES Final Result * Colonoscopy (10/10/2021) Colonoscopy Normal Normal Historical Provider HEALTH MAINTENANCE Final Result from Last 3 Months or Most Recently Relevant to Health Maintenance Insurance [facility] Care Teams Senior Android Software Engineer Relationship Specialty Start Date End Date Tom Trujillo ANP [address] [place] [address] PCP - General Family Medicine 09/29/19 Everett Rojas MD [address] [place] [address] [address]rd Floor [place] [address] Cardiology 04/21/24
--- OUTSIDE RECORDS SUMMARY | 2024-08-24 13:51 | XMS_ITS | Encounter Summary ---
Author Organization [employer] Address [address] [facility] 7t [place] [address] Care Team Providers Care Food Science Technician Name Role Phone Sudha Mitchell Primary Care Provider [phone] Everett Rojas MD Unavailable [phone] Reason for Visit * Reason Comments Med Refill Encounter Details Date Type Department Care Team (Late st Contact Info) Description 09/18/2023 Refill [facility] [address] [place], [place] [phone] Sudha Mitchell ANP [address] [place] [address] Lumbago of lumbar region with sciatica Social [...] Description 10/06/2024 11:00 AM EDT Office Visit [address] [address] Sudha Mitchell ANP [address] [place] [phone] 10/23/2024 9:00 AM EDT Clinical Support [address] [address] Nichole Lucio, MONAE [address] [place] [address] documented as of this encounter Visit Diagnoses Diagnosis Lumbago of lumbar region with sciatica documented in this encounter Care Teams Food Science Technician Relationship Specialty Start Date End Date Sudha Mitchell ANP [address] [place] [phone] PCP - General Family Medicine 09/29/19 Everett Rojas MD [address] [place] [address] 3rd [place] [address] Cardiology 04/21/24 documented as of this encounter
--- OUTSIDE RECORDS SUMMARY | 2024-08-24 13:51 | XMS_ITS | Encounter Summary ---
Author Organization [employer] Address [address] [place] [address] 7t [place] [address] Care Team Providers Care Ad Trafficker Name Role Phone Sudha Mitchell Primary Care Provider [phone] Everett Rojas MD Unavailable [phone] Reason for Visit * Reason Comments Med Refill Encounter Details Date Type Department Care Team (Late st Contact Info) Description 01/22/2023 Refill [facility] [address] [place] [address] [phone] Sudha Mitchell ANP [address] [place], [place] [phone] Lumbago of lumbar region with sciatica Social [...] Description 10/06/2024 11:00 AM EDT Office Visit [facility] [address] [place] [address] [phone] Sudha Mitchell ANP [address] [place], [place] [phone] 10/23/2024 9:00 AM EDT Clinical Support [facility] [address] [place] [address] Nichole Lucio, MONAE [address] [place] [address] documented as of this encounter Visit Diagnoses Diagnosis Lumbago of lumbar region with sciatica documented in this encounter Care Teams Ad Trafficker Relationship Specialty Start Date End Date Sudha Mitchell ANP [address] [place] [address] PCP - General Family Medicine 09/29/19 Everett Rojas MD [address] [place] [address] 3rd [place] [address] Cardiology 04/21/24 documented as of this encounter
--- OUTSIDE RECORDS SUMMARY | 2024-08-24 13:51 | XMS_ITS | Encounter Summary ---
Author Organization [employer] Address [address] [place] [address] 7[address] [place] [address] Care Team Providers Care Receiving Weigher Name Role Phone Sudha Mitchell Primary Care Provider [phone] Everett Rojas MD Unavailable [phone] Reason for Visit * Reason Comments Med Refill Encounter Details Date Type Department Care Team (Late st Contact Info) Description 08/14/2022 Refill [facility] [address] [place] [phone] [place] Nancy [facility] [address] [place] [address] Lumbago of lumbar region with sciatica Social [...] Description 10/06/2024 11:00 AM EDT Office Visit [facility] [address] [place] [address] Sudha Mitchell ANP [address] [place] [address] 10/23/2024 9:00 AM EDT Clinical Support [facility] [address] [place] [phone] Nichole Lucio, RN [address] [place] [address] documented as of this encounter Visit Diagnoses Diagnosis Lumbago of lumbar region with sciatica documented in this encounter Care Teams Receiving Weigher Relationship Specialty Start Date End Date Sudha Mitchell ANP [address] [place] [address] PCP - General Family Medicine 09/29/19 Everett Rojas MD [address] [place] [address] 3rd [place] [address] Cardiology 04/21/24 documented as of this encounter
--- OUTSIDE RECORDS SUMMARY | 2024-08-24 13:52 | XMS_ITS | Encounter Summary ---
Author Organization [employer] Address [address] [facility] 7t [place] [address] Care Team Providers Care Bed Control Specialist Name Role Phone Sudha Mitchell Primary Care Provider [phone] Everett Rojas MD Unavailable [phone] Reason for Visit * Reason Comments Med Refill Encounter Details Date Type Department Care Team (Late st Contact Info) Description 03/23/2024 Refill [facility] [address] [place], [place] [phone] Sudha Mitchell ANP [address] [place] [address] Lumbago of lumbar region with sciatica Social [...] Description 10/06/2024 11:00 AM EDT Office Visit [facility] [address] [place] [phone] Sudha Mitchell ANP [address] [place] [phone] 10/23/2024 9:00 AM EDT Clinical Support [facility] [address] [place] [address] Nichole Lucio, MONAE [address] [place] [address] documented as of this encounter Visit Diagnoses Diagnosis Lumbago of lumbar region with sciatica documented in this encounter Care Teams Bed Control Specialist Relationship Specialty Start Date End Date Sudha Mitchell ANP [address] [place] [id number] PCP - General Family Medicine 09/29/19 Everett Rojas MD [address] 3rd [place] [address] Cardiology 04/21/24 documented as of this encounter
== END 2024-08-24 12:00 | disposition home or self-care (01) ==
LOC: HO.HGI 11:48
PROVIDERS: PCP Nurse Practitioner Primary Care; Visit Provider Internal Medicine Gastroenterology
DX: Z23 Encounter for immunization (principal)

== ENCOUNTER → 2024-08-24 11:48 | Outpatient (BNVA) | payer MEDICAID, SELFPAY | PROVIDERS: PCP Nurse Practitioner Primary Care; Visit Provider Internal Medicine Gastroenterology | DX: Z23 Encounter for immunization (principal) | CPT/HCPCS: 90471; 90746; 99211 ==

== ENCOUNTER 2024-08-25 14:25 | Outpatient (AMB) | payer MEDICAID, SELFPAY ==
--- NOTE | 2024-08-25 15:00 | MHC.OFFVIS ---
Vital Signs 08/25/24 15:01 Height 4 ft 11 in Weight 154 lb 5.177 oz BMI 31.2 BP 118/60 Blood Pressure Location Lt brachial Position Sitting Pulse 66 Pulse Source Pulse Oximeter Intake Visit Reasons: Essential hypertension Allergies rivaroxaban [From XARELTO] Allergy (Intermediate, Verified 07/06/24 11:44) GI BLEEDING SEAFOOD Allergy (Intermediate, Uncoded 12/31/23 19:11) RASH Medication List - Last Reconciled 08/25/24 by Everett Rojas MD albuterol sulfate 90 mcg/actuation (ProAir HFA) 2 puffs PO Q4-6H PRN apixaban (Eliquis) 5 mg PO BID 90 days calcium carbonate-vitamin D3 600 mg-10 mcg (400 unit) 1 tab PO cholecalciferol (vitamin D3) 25 mcg PO QAM digoxin 125 mcg PO DAILY fluticasone propionate 110 mcg/actuation (Flovent HFA) 1 puff inhalation BID hydrochlorothiazide 25 mg PO QAM lidocaine 5% (Lidoderm) 1 - 2 patches topical DAILY PRN metoprolol tartrate 50 mg PO BID 90 days montelukast 10 mg PO BEDTIME tramadol 50 - 100 mg PO Q12H PRN HPI Comments Details: Walt returns for follow-up regarding paroxysmal atrial fibrillation. To recall, she was on a combination of flecainide and beta-blockers and was doing fine and well controlled. However, more recently, she has been feeling palpitations and EKG as well as Holter had shown evidence of recurrent atrial fibrillation. Then we stopped the flecainide and left only on beta-blockers. With regard to anticoagulation, she was on Xarelto till around 2016 when she had GI bleeding with severe anemia and hemoglobin of about 4.9. After that, she has not been any anticoagulation-but recently again put back. Few months back, refer to EP. Underwent ablation in April 2024. Doing good but she still gets some palpitations intermittently. [facility] Medical History Hemorrhage of gastrointestinal tract, unspecified PAF (paroxysmal atrial fibrillation) Tubular adenoma of colon Low vitamin D level Atrial fibrillation Cirrhosis of liver Asthma Hepatitis B Surgical History History of esophagogastroduodenoscopy (EGD) Hx of colonoscopy History of total abdominal hysterectomy and bilateral salpingo-oophorectomy History of 3 sections Family History Father No problems noted. Mother No problems noted. 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 Review of Systems Const Denies weakness ENT Denies dizziness Card Denies chest pain, Denies chest pain with activity, Denies syncope, Denies rapid heart rate, Denies pedal edema, Denies edema, Denies leg edema, Denies lightheadedness, Denies palpitations, Denies dyspnea, Denies dyspnea on exertion and Denies orthopnea Resp Denies cough, Denies dyspnea and Denies dyspnea on exertion GI Denies hematochezia and Denies change in stool character Musc Denies abnormal gait, Denies muscle cramps, Denies muscle weakness, Denies numbness, Denies radiating pain into limb and Denies tingling Neuro Denies abnormal gait, Denies dizziness, Denies syncope, Denies numbness, Denies tingling and Denies weakness Endo Denies palpitations Physical Exam Vital Signs: Last Vital Signs Pulse 66 08/25/24 15:01 BP 118/60 08/25/24 15:01 BMI result Body Mass Index 31.2 Const General: comfortable and no acute distress Orientation/consciousness: patient oriented x3 HEENT Other: Unremarkable Head: Yes normal to inspection Neck Neck: Yes normal visual inspection Chest Chest palpation & inspection: normal inspection of the chest Resp Auscultation: clear to auscultation bilaterally Cardio Palpation: normal PMI Heart sounds: S1 normal heart sound present, S2 normal heart sound present, no gallops, no murmurs and no rubs GI Palpation (GI): Soft to palpation Back/Spine/Pelvis Other: unremarkable Skin General skin exam: no rashes or lesions noted Neuro General: patient oriented x3 Extrem General: Yes normal to inspection Psych Mental Status: mental status grossly normal Assessment & Plan Assessment & Plan (1) PAF (paroxysmal atrial fibrillation): Code(s): I48.0 - Paroxysmal atrial fibrillation Category: Medical Plan: Failed flecainide. Status post ablation. We will check Holter monitor to see if she has any recurring atrial fibrillation or not as she reports palpitations. Has a history of cirrhosis/GI bleed/anemia. Underwent endoscopy. Findings include mild gastritis and a small flat varix. Probably refer in the future back for Watchman device. To be decided. (2) Essential hypertension: Code(s): I10 - Essential (primary) hypertension Category: Medical Plan: Stable. No changes. Plan During the consultation with the patient, we discussed the continued presentation of heart palpitations and post-ablation symptoms. I have decided to use a heart monitor to further assess the presence of AFib. It was noted that the patient is on Eliquis with no bleeding concerns reported. In these discussions, the need for a heart monitor was made clear with shared decision-making regarding ongoing AF monitoring and medication management. Further steps will depend based on the heart monitor results, and the importance of adherence to current medication treatment while awaiting additional tests was emphasized. Follow-up and periodic reevaluation upon receipt of objective data from monitoring were also addressed. Patient was informed and verbally consented to the use of an ambient scribe for clinic note documentation during this visit. Orders: Orders ECG 14 day holter monitor Today I48.0 - Paroxysmal atrial fibrillation Patient Instructions: - Wear the heart monitor as instructed. - Continue taking Eliquis as you have been. - Monitor for any symptoms of bleeding and seek assistance if they arise. - Follow up in three months or as directed once the heart monitor results are available. - Report any new symptoms or changes in your current symptoms to us immediately. Coding Level of Care Code Est Pt Level 4 (03694) Complex EM visit Add On G2211 Diagnoses PAF (paroxysmal atrial fibrillation) I48.0 Essential hypertension I10
[2024-08-25 15:01] VITALS: BP 118/60; PULSE 66; BMI 31.2
--- OUTSIDE RECORDS SUMMARY | 2024-08-25 17:38 | XMS_ITS | Encounter Summary ---
Author Organization [employer] Address [address] [facility] 7t [place] [address] Care Team Providers Care Hospitality Housekeeper Name Role Phone Sudha Mitchell Primary Care Provider Everett Rojas MD Unavailable [phone] Reason for Visit * Reason Comments Med Refill Encounter Details Date Type Department Care Team (Late st Contact Info) Description 09/18/2023 Refill [facility] [address] [place], [place] [phone] Sudha Mitchell ANP [address] [place] [address] Lumbago of lumbar region with sciatica Social [...] Description 10/06/2024 11:00 AM EDT Office Visit [address] [address] Sudha Mitchell ANP [address] [place] [address] 10/23/2024 9:00 AM EDT Clinical Support [address] [address] Nichole Lucio, MONAE [address] [place] [address] documented as of this encounter Visit Diagnoses Diagnosis Lumbago of lumbar region with sciatica documented in this encounter Care Teams Hospitality Housekeeper Relationship Specialty Start Date End Date Sudha Mitchell ANP [address] [place] [address] PCP - General Family Medicine 09/29/19 Everett Rojas MD [address] [place] [address] 3rd [place] [address] Cardiology 04/21/24 documented as of this encounter
--- OUTSIDE RECORDS SUMMARY | 2024-08-25 17:38 | XMS_ITS | Encounter Summary ---
Author Organization [employer] Address [address] [facility] 7t [place] [address] Care Team Providers Care Machine Tender Name Role Phone Sudha Mitchell Primary Care Provider Everett Rojas MD Unavailable [phone] Reason for Visit * Reason Comments Med Refill Encounter Details Date Type Department Care Team (Late st Contact Info) Description 02/20/2024 Refill [facility] [address] [place], [place] [phone] Sudha Mitchell ANP [address] [place] [address] Lumbago of lumbar region with sciatica Social [...] Description 10/06/2024 11:00 AM EDT Office Visit [facility] [address] [place] [address] Sudha Mitchell ANP [address] [place] [address] 10/23/2024 9:00 AM EDT Clinical Support [facility] [address] [place] [address] Nichole Lucio, MONAE [address] [place] [address] documented as of this encounter Visit Diagnoses Diagnosis Lumbago of lumbar region with sciatica documented in this encounter Care Teams Machine Tender Relationship Specialty Start Date End Date Sudha Mitchell ANP [address] [place] [address] PCP - General Family Medicine 09/29/19 Everett Rojas MD [address] 3rd [place] [address] Cardiology 04/21/24 documented as of this encounter
--- OUTSIDE RECORDS SUMMARY | 2024-08-25 17:38 | XMS_ITS | Encounter Summary ---
Author Organization [employer] Address [address] [place] [address] 7t [place] [address] Care Team Providers Care Poultry Cutter Name Role Phone Sudha Mitchell Primary Care Provider [phone] Everett Rojas MD Unavailable [phone] Reason for Visit * Reason Onset Date Comments Med Refill 11/23/2022 Encounter Details Date Type Department Care Team (Late st Contact Info) Description 11/23/2022 Telephone [facility] [address] [place], [place] [phone] Sudha Mitchell ANP [address] [place] [address] Med Refill Social History Tobacco Use Types [...] Description 10/06/2024 11:00 AM EDT Office Visit [address] [address] Sudha Mitchell ANP 230 [place] [address] 10/23/2024 9:00 AM EDT Clinical Support [address] [address] Nichole Lucio, MONAE [address] [place], [place] [phone] documented as of this encounter Visit Diagnoses Not on filedocumented in this encounter Care Teams Poultry Cutter Relationship Specialty Start Date End Date Sudha Mitchell ANP [address] [place] [address] PCP - General Family Medicine 09/29/19 Everett Rojas MD [address] [place] [address] Drive 3rd [place] [address] Cardiology 04/21/24 documented as of this encounter
--- OUTSIDE RECORDS SUMMARY | 2024-08-25 17:38 | XMS_ITS | Clinical Summary ---
Author Organization [employer] Address [address] [facility] 7t [place] [address] Care Team Providers Care Practice Advisor Name Role Phone Trujillo Tom WEI Primary Care Provider [phone] Everett Rojas MD Unavailable [phone] Allergies Active Allergy Reactions Criticality Noted Date [...] 04/16/2023 Overview (04/16/2023): EGD repeat due 05/2023 [facility] History of Helicobacter pylori infection 023 Overview (04/16/2023): tx'd 10/2021 via [facility] Cirrhosis of liver without ascites 04/16/2023 Overview (04/16/2023): compensated. thought to be d/t CARTWRIGHT vs. HCV. Follows w/ [facility] and had abd MRI to eval liver lesion 07/2022. 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 11/19/2022 Overview (11/19/2022): MRI 01/01/2022 findings copied into 09/18/22 note for reference Thrombocytopenia 03/20/2018 Trigger finger of both hands 03/20/2018 Neoplasm of liver 11/10/2017 Paroxysmal atrial fibrillation 02/07/2016 Atherosclerosis of miccosukee co ronary artery of [place] heart with stable angina pectoris 11/25/2015 Benign essential hypertension 11/25/2015 Chronic hepatitis C 11/25/2015 Moderate persistent asthma 11/25/2015 Encounters Date Type Department Care Team Description 08/11/[address] [address] Tom Trujillo ANP Durable Medical Equipment (cane) 08/05/[address] [address] Tom Trujillo ANP 08/04/[address] [address] Tom Trujillo ANP 07/31/2024 8:30 AM EDT Clinical Support [address] [address] Nichole Lucio, talent consultant midline low back pain with right-sided sciatica (Primary Dx); Long-term current use of opiate analgesic 07/31/2024 Refill [facility] [address] [place] [address] Tom Trujillo ANP Lumbago of lumbar region with sciatica 07/31/2024 Travel 07/22/2024 Outside Procedure [facility] [address] [place] [address] Magen, Modesta, OD Presbyopia of both eyes (Primary Dx) 07/20/2024 10:15 AM EDT Office Visit [facility] [address] [place] [address] Magen, Modesta, OD Hyperopia of both eyes (Primary Dx) 07/06/2024 2:15 PM EST Office Visit [facility] [address] [place] [address] Tom Trujillo ANP Paroxysmal atrial fibrillation (CMS/HCC) (Primary Dx); Arthritis of right knee; Healthcare maintenance; Thrombocytopenia (CMS/HCC) 07/06/2024 Travel 06/30/2024 Telephone [facility] [address] [place] [address] Barbie Munroe MA chart prep 06/18/2024 Patient Outreach [facility] [address] [place] [address] Tom Trujillo ANP Pre-visit Planning (SDOH Screening negative and Tobacco screening negative) 06/12/2024 8:30 AM EST Clinical Support [facility] [address] [place] [address] Nichole Lucio RN 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ciatica 06/12/2024 Telephone [facility] [address] [place] [address] Nichole Lucio RN 06/12/2024 Travel 06/10/2024 Refill [facility] [address] [place] [address] Tom Trujillo ANP from Last 3 Months [...] [facility] [address] [place] [address] [phone] Tom Trujillo ANP [address] [place] [address] 10/23/2024 9:00 AM EDT Clinical Support [facility] [address] [place] [phone] Nichole Lucio, MONAE [address] [place] [address] Health Maintenance Due Date Last Done Comments [...] Routine 09/16/2023 9:41 AM EDT Atherosclerosis of mic[place] coronary artery of [place] heart with stable angina pectoris (CMS/HCC) BI MAMMOGRAM SCREENING TOMOSYNTHESIS BILATERAL Routine 04/22/2023 3:15 PM EST HM COLONOSCOPY Routine 10/10/2021 from Last 3 Months or Most Recently Relevant to Health Maintenance Results * (ABNORMAL) CBC auto differential (07/31/2024 9:00 AM EDT) Only the most recent of2 resultswithin the time period is included. White Blood Count 4.2(L) 4.8 - 10.8 X10*3/uL [facility] Red Blood Count 4.26 4.20 - 5.50 X10*6/uL [facility] Hemoglobin 12.8 12.0 - 16.0 g/dl [facility] Hematocrit 39.4 37.0 - 47.0 % [facility] Mean Corpuscular Volume 92.5 80.0 - 98.0 fL [facility] Mean Corpuscular Hemoglobin 30.0 27.0 - 33.0 pg [facility] Mean Corpuscular HGB Conc 32.5 31.0 - 35.0 g/dl [facility] Red Cell Distribution Width 14.4 11.0 - 16.0 % [facility] Platelet Count 139(L) 160 - 400 X10*3/uL [facility] Mean Platelet Volume 10.6 9.4 - 12.3 fL [facility] Neutrophils Percent Auto 64.4 45 - 73 % [facility] Imm Gran Pct Auto 0.2 0.0 - 0.4 % [facility] Lymphocytes Percent Auto 22.1 20 - 40 % [facility] Monocytes Percent Auto 10.6 2 - 11 % [facility] Eosinophils Percent Auto 2.2 0 - 4 % [facility] Basophils Percent Auto 0.5 0 - 2 % [facility] NRBC Pct Auto 0.0 0.0 - 0.2 /100WBC [facility] Neutrophils Absolute Auto 2.7 2.0 - 8.3 x10*3/uL [facility] Imm Gran Abs Auto 0.01 0.00 - 0.03 X10*3/uL [facility] Lymphocytes Absolute Auto 0.9(L) 1.2 - 4.9 X10*3/uL [facility] Monocytes Absolute Auto 0.4 0.1 - 1.2 X10*3/uL [facility] Eosinophils Absolute Auto 0.1 0.0 - 0.4 X10*3/uL [facility] Basophils Absolute Auto 0.0 0.0 - 0.2 X10*3/uL [facility] NRBC Abs Auto 0.000 0.0 - 0.012 X10*3/uL [facility] Blood Venous blood specimen / Unknown 07/31/2024 9:00 AM EDT 07/31/2024 11:07 AM EDT us Tom Trujillo ANP LAB BLOOD ORDERABLES Final Resul t [facility] [address] [place] [phone] * Hepatitis B surface antigen, EIA (07/31/2024 9:00 AM EDT) Hepatitis B Surface Ag Negative Negative [facility] Blood Venous blood specimen / Unknown 07/31/2024 9:00 AM EDT 07/31/2024 11:07 AM EDT Tom Trujillo ANP LAB BLOOD ORDERABLES Final Resul t Performing Organization Address [facility] Co de Phone Number [facility] [address] [place] [phone] * Hepatitis B Core Antibody, Total (07/31/2024 9:00 AM EDT) Hepatitis B Core Antibody Nonreactive Nonreactive [facility] Blood Venous blood specimen / Unknown 07/31/2024 9:00 AM EDT 07/31/2024 11:07 AM EDT Tom [facility] LAB BLOOD ORDERABLES Final Resul t Performing Organization Address [facility] de Phone Number [facility] [address] [place] [phone] * Hepatitis B Surface Antibody, Qualitative (07/31/2024 9:00 AM EDT) ~Hepatitis B Surface Antibody REACTIVE Nonreactive [facility] Comment:REACTIVE: > 11.99 mI U/mL Blood Venous blood specimen / Unknown 07/31/2024 9:00 AM EDT 07/31/2024 11:07 AM EDT Tom Trujillo [facility] LAB BLOOD ORDERABLES Final Resul t Performing Organization Address [facility] de Phone Number [facility] [address] [place] [phone] * POCT KRISHAN-14 Urine Drug Screen (07/31/2024 8:56 AM EDT) Only the most recent of2 resultswithin the time period is included. Urine Urine specimen obtained by clean catch procedure / Unknown 07/31/2024 8:56 AM EDT Narrative Nichole Lucio RN - 07/31/2024 8:56 AM EDT .UTOX cup Lot#[id number] Exp. 12/30/25 Internal Pass Control negative AMP, BAR, BUP, BZO, LILIYA, FTY, MDMA, MET, MOP, MTD, OXY, PCP, TCA, THC. us Tom Trujillo ANP POINT OF CARE TEST ENTER/EDIT OR DERABLES Final Result * Vitamin D, 25-Hydroxy, Total, Immunoassay (07/06/2024 12:41 PM EST) Vitamin D 25-OH Total 64.7 >30 ng/mL [facility] Comment:Health Based Referen ce Values*< 20 ng/mL Ueiqgbygh18-28 ng/mL Insufficient> 30 ng/mL Sufficient*Yulissa MCGRATH. N [...] Provider LAB BLOOD ORDERAB LES Final Result [facility] [address] [place] [phone] * (ABNORMAL) Zinc (07/06/2024 12:41 PM EST) Zinc 53(A) 60 - 130 mcg/dL [facility] Comment:This test was develo ped and its analytical performancecharacteristics have been determined by [place], [place]. It hasnot been cleared or approved by the U.S. Food and DrugAdministration. This assay has been validated pursuantto the CLIA regulations and is used for clinicalpurposes.THIS TEST WAS PERFORMED AT:[employer]/[facility] [place] [address]ZZAYUYGMYLES GRACE MD,PHD 07/06/2024 12:4 1 PM EST 07/06/2024 12:46 PM EST Generic External Data Provider LAB BLOOD ORDERAB LES Final Result Performing Organization Address [facility]/ZIP Co de Phone Number [facility] [address] [place] [phone] * (ABNORMAL) Prothrombin Time-INR (07/06/2024 12:41 PM EST) Prothrombin Time 17.8(H) 10.9 - 12.4 SEC [facility] INTERNATIONAL NORM RATIO 1.5(H) 0.9 - 1.1 [facility] Comment:INTERNATIONAL NORMAL IZED RATIO (INR) [...] ORDERAB LES Final Result Performing Organization Address [facility]/ZIP Co de Phone Number [facility] [address] [place] [phone] * (ABNORMAL) Comprehensive Metabolic Panel (07/06/2024 12:41 PM EST) Sodium 144 135 - 145 mmol/L [facility] Potassium 3.8 3.3 - 5.1 mmol/L [facility] Chloride 107 96 - 108 mmol/L [facility] Carbon Dioxide 30(H) 22 - 29 mmol/L [facility] Anion Gap 11(L) 12 - 20 [facility] Urea Nitrogen (BUN) 19(H) 9 - 16 mg/dL [facility] Creatinine, Serum 0.77 0.5 - 1.4 mg/dL [facility] Estimated Glomerular Filt Rate >60 [facility] Comment:Chronic Kidney Disea se: Estimated GFR < 60 mL/min/1.81s2Smohgm Kidney Disease: Estimated GFR < 15 mL/min/1.73m2 Glucose 97 60 - 115 mg/dL [facility] Calcium 9.6 8.4 - 10.2 mg/dL [facility] Bilirubin, Total 0.8 0.0 - 1.0 mg/dL [facility] Aspartate Amino Transferase 40(H) 5 - 31 U/L [facility] Alanine Aminotransferase 39(H) 0 - 31 U/L [facility] Total Protein 7.7 6.5 - 8.0 g/dL [facility] Albumin Level 3.6 3.5 - 5.0 g/dL [facility] Alkaline Phosphatase 47 39 - 117 U/L [facility] 07/06/2024 12:4 1 PM EST 07/06/2024 12:46 PM EST us Generic External Data Provider LAB BLOOD ORDERAB LES Final Result Performing Organization Address City/State/[facility] Co de Phone Number [facility] [address] [place] [phone] * BD DEXA Axial (06/09/2024 1:30 PM EST) Anatomical Region Laterality Modality Body Radiographic Dawn ging 06/09/2024 1:30 PM EST Narrative 06/15/2024 11:35 AM EST ? [facility] ? [address] ?[place] [address] ? Mammography Report ? Signed ? Patient: Rudolph Torres,Virgenmina ?MR ?? #: [id number] ? : 1955 ?Acct:[id number] ? Age/Sex: 68 / F ?ADM Date: 01/28/25 ? Loc: HO.MAMMO ? Attending Dr: Tom Trujillo METAL FURNITURE REPAIRER ? Ordering Physician: TOM TRUJILLO NP ?Results: ? Date of Service: 06/09/24 ?Follow Up: ? Procedure(s): XR DEXA axial skeleton ?? Accession Number(s): [id number] ? cc: TOM TRUJILLO NP ? EXAMINATION: ??DXA BONE DENSITY AXIAL ? HISTORY: ??Estrogen deficiency ? TECHNIQUE: [employer] Dual energy absorptiometry (DEXA) ?? of the [...] [facility] [employer] ?? [facility], a World Health Organization (WHO) ?? Collaborating Center. ? Electronically signed by: ??Atul Mejía MD ??06/15/2024 11:32 AM EST ?? RP ? Dictated By: ?Atul Mejía MD ? Signed By: ?<Electronically signed by Atul Mejía MD in OV> ?06/15/24 1132 ? DD/ 1330 ? TD/TT: 06/09/24 1400 ? Record Filing Clerk: ? Procedure Note Laz, Image - 06/15/2024 [facility] [address] [place] [address] Mammography Report Signed Patient: Kenyon Rajan #: [id number] : 4Acct:[id number] Age/Sex: 68 / FADM Date: 06/09/24 Loc: LEE Attending Dr: Tom Trujillo NP Ordering Physician: TOM TRUJILLOesults: Date of Service: 06/09/24Follow Up: Procedure(s): XR DEXA axial skeleton Accession Number(s): [id number] cc: TOM TRUJILLO NP EXAMINATION: DXA BONE DENSITY AXIAL HISTORY: Estrogen deficiency TECHNIQUE: [employer] Dual energy absorptiometry (DEXA) of the lumbar [...] of the [employer], a World Health Organization (WHO) Collaborating Center. Electronically signed by: Atul Mejía MD 06/15/2024 11:32 AM EST Dictated By: Autl Mejía MD Signed By: <Electronically signed by Atul Mejía MD in OV> 06/15/24 1132 DD/ 1330 TD/TT: 06/09/24 1400 Record Filing Clerk: us Tom Trujillo ANP IMG DXA PROCEDURES Final Result * (ABNORMAL) Lipid Panel, Standard (09/16/2023 9:41 AM EDT) Triglycerides 64 <150 mg/dL [facility] Comment:Desirable Triglyceri de: less than 150 mg/dLBorderline High Triglyceride 150-199 mg/dLHigh Triglyceride: 200-499 mg/dLVery High Triglyceride: greater than or equal to 5OO mg/dL Cholesterol 189 <200 mg/dL [facility] Comment:Desirable Cholestero l: less than 200 mg/dLBorderline High Cholesterol: 200-239 mg/dLHigh Cholesterol: greater than 239 mg/dL LDL Cholesterol Calculated 131(H) <100 mg/dL [facility] Comment:Desirable LDL: less than 100 mg/dLNear Optimal/Above Optimal LDL: 110- 129 mg/dLBorderline High LDL: 130-159 mg/dLHigh LDL: 160-189 mg/dLVery High LDL: greater than or equal to 190 mg/dL HDL Cholesterol 46 >40 mg/dL [facility] Comment:Desirable HDL: great er than 40 mg/dL Note: This HDL assay may give artificially low results in patients with liver disease. Blood Venous blood specimen / Unknown 09/16/2023 9:41 AM EDT 09/16/2023 9:41 AM EDT us Tom Trujillo ANP LAB BLOOD ORDERABLES Final Resul t [facility] [address] [place] [phone] * BI Mammogram Screening Tomosynthesis Bilateral (04/22/2023 3:15 PM EST) Anatomical Region Laterality Modality Breast Bilateral Mammography 04/22/2023 3:15 PM EST Narrative 05/07/2023 8:31 PM EST ? [facility] ? [address] ?[place] [address] ? Mammography Report ? Signed ? Patient: Rudolph Torres,Virgenmina ?MR ?? #: [id number] ? : 1955 ?Acct:[id number] ? Age/Sex: 67 / F ?ADM Date: 04/22/23 ? Loc: HO.MAMMO ? Attending Dr: Tom Trujillo METAL FURNITURE REPAIRER ? Ordering Physician: TOM TRUJILLO METAL FURNITURE REPAIRER ?Results: 1Negative ? Date of Service: 04/22/23 ?Follow Up: 1 Year From Orig ?? inal Mammogram ? Procedure(s): MM tomosynthesis screening BI ?? Accession Number(s): [id number] ? cc: TOM TRUJILLO NP ? EXAMINATION: [...] 05/07/232026 ? DD/ 1515 ? TD/TT: ? Record Filing Clerk: ? Procedure Note Donnicohiinterpreter, Image - 05/07/2023 [place] [address] [place] [address] Mammography Report Signed Patient: Kenyon Rajan #: [id number] : 4Acct:[id number] Age/Sex: 67 / FADM Date: 04/22/23 Loc: HO.MAMMO Attending Dr: Tom Trujillo NP Ordering Physician: TOM TRUJILLO NPResults: 1Negative Date of Service: 04/22/23Follow Up: 1 Year From Orig inal Mammogram Procedure(s): MM tomosynthesis screening BI Accession Number(s): [id number] cc: TOM TRUJILLO NP EXAMINATION: MM SCREENING [...] MD in OV> 05/07/232026 DD/ 1515 TD/TT: Record Filing Clerk: Tom WEI IMG BI PROCEDURES Final Result * Colonoscopy (10/10/2021) Colonoscopy Normal Normal Historical Provider HEALTH MAINTENANCE Final Result from Last 3 Months or Most Recently Relevant to Health Maintenance Insurance [facility] STANDARD Care Teams Practice Advisor Relationship Specialty Start Date End Date Tom Trujillo ANP [address] [place] [address] PCP - General Family Medicine 09/29/19 Everett Rojas MD [address] [place] [address] 3rd Floor [place] [address] Cardiology 04/21/24
--- OUTSIDE RECORDS SUMMARY | 2024-08-25 17:38 | XMS_ITS | Encounter Summary ---
Author Organization [employer] Address [address] [facility] 7t [place] [address] Care Team Providers Care Crew Clerk Name Role Phone Sudha Mitchell Primary Care Provider [phone] Everett Rojas MD Unavailable Reason for Visit * Reason Comments Med Refill Encounter Details Date Type Department Care Team ([facility] st Contact Info) Description 10/18/2023 Refill [facility] [address] [place] [address] Sudha Mitchell ANP [address] [place] [address] Lumbago of lumbar region with sciatica Social [...] Description 10/06/2024 11:00 AM EDT Office Visit [address] [address] Sudha Mitchell ANP [address] [place] [address] 10/23/2024 9:00 AM EDT Clinical Support [address] [address] Nichole Lucio RN [address] [place] [address] documented as of this encounter Visit Diagnoses Diagnosis Lumbago of lumbar region with sciatica documented in this encounter Care Teams Crew Clerk Relationship Specialty Start Date End Date Sudha Mitchell ANP [address] [place] [phone] PCP - General Family Medicine 09/29/19 Everett Rojas MD [address] [place] [address] 3rd [place] [address] Cardiology 04/21/24 documented as of this encounter
--- OUTSIDE RECORDS SUMMARY | 2024-08-25 17:38 | XMS_ITS | Encounter Summary ---
Author Organization [employer] Address [address] [place] [address] 7t [place] [address] Care Team Providers Care Managed Care Nurse Name Role Phone Sudha Mitchell Primary Care Provider [phone] Everett Rojas MD Unavailable Reason for Visit * Reason Comments Med Refill Encounter Details Date Type Department Care Team (Late st Contact Info) Description 01/22/2023 Refill [facility] [address] [place] [phone] Sudha Mitchell ANP [address] [place], [place] [phone] Lumbago of lumbar region with sciatica Social [...] Description 10/06/2024 11:00 AM EDT Office Visit [facility] [address] [place] [address] [phone] Sudha Mitchell ANP [address] [place], [place] [phone] 10/23/2024 9:00 AM EDT Clinical Support [facility] [address] [place] [address] Nichole Luico, MONAE [address] [place] [address] documented as of this encounter Visit Diagnoses Diagnosis Lumbago of lumbar region with sciatica documented in this encounter Care Teams Managed Care Nurse Relationship Specialty Start Date End Date Sudha Mitchell ANP [address] [place] [address] PCP - General Family Medicine 09/29/19 Everett Rojas MD [address] [place] [address] 3rd [place] [address] Cardiology 04/21/24 documented as of this encounter
--- OUTSIDE RECORDS SUMMARY | 2024-08-25 17:38 | XMS_ITS | Encounter Summary ---
Author Organization [employer] Address [address] [place] [address] 7t [place] [address] Care Team Providers Care Houseman Name Role Phone Sudha Mitchell Primary Care Provider [phone] Everett Rojas MD Unavailable [phone] Reason for Visit * Reason Comments Med Refill Encounter Details Date Type Department Care Team (Late st Contact Info) Description 05/02/2022 Refill [facility] [address] [place], [place] [phone] Sudha Mitchell ANP [address] [place] [address] Cervicalgia Social History Tobacco Use Types Packs/Day [...] Description 10/06/2024 11:00 AM EDT Office Visit [facility] [address] [place] [phone] Sudha Mitchell ANP [address] [place] [address] 10/23/2024 9:00 AM EDT Clinical Support [facility] [address] [place] [phone] Nichole Lucio RN 505 [place] [address] documented as of this encounter Visit Diagnoses Diagnosis Cervicalgia documented in this encounter Care Teams Houseman Relationship Specialty Start Date End Date Sudha Mitchell ANP [address] [place] [address] PCP - General Family Medicine 09/29/19 Everett Rojas MD [address] [place] [address] 3rd [place] [address] Cardiology 04/21/24 documented as of this encounter
--- OUTSIDE RECORDS SUMMARY | 2024-08-25 17:38 | XMS_ITS | Encounter Summary ---
Author Organization [employer] Address [address] [place] [address] 7t [place] [address] Care Team Providers Care Overweaver Name Role Phone Sudha Mitchell Primary Care Provider [phone] Everett Rojas MD Unavailable [phone] Reason for Visit * Reason Comments Med Refill Encounter Details Date Type Department Care Team (Late st Contact Info) Description 08/14/2022 Refill [facility] [address] [place] [address] [place] Nancy [facility] [address] [place] [address] Lumbago of lumbar region with sciatica Social [...] 11:00 AM EDT Office Visit [facility] [address] [place] [phone] Sudha Mitchell ANP [address] [place] [address] 10/23/2024 9:00 AM EDT Clinical Support [facility] [address] [place] [address] Nichole Lucio, RN [address] [place] [address] documented as of this encounter Visit Diagnoses Diagnosis Lumbago of lumbar region with sciatica documented in this encounter Care Teams Overweaver Relationship Specialty Start Date End Date Sudha Mitchell ANP [address] [place] [address] PCP - General Family Medicine 09/29/19 Everett Rojas MD [address] [place] [address] 3rd [place] [address] Cardiology 04/21/24 documented as of this encounter
--- OUTSIDE RECORDS SUMMARY | 2024-08-25 17:38 | XMS_ITS | Encounter Summary ---
Author Organization [employer] Address [address] [place] [address] 7t [place] [address] Care Team Providers Care Risk Control Representative Name Role Phone Sudha Mitchell Primary Care Provider [phone] Everett Rojas MD Unavailable [phone] Reason for Visit * Reason Comments Med Refill Encounter Details Date Type Department Care Team (Late st Contact Info) Description 06/22/2022 Refill [facility] [address] [place] [phone] Sudha Mitchell ANP [address] [place] [address] Lumbago of lumbar region with sciatica Social [...] 10/06/2024 11:00 AM EDT Office Visit [address] [address] Sudha Mitchell ANP [address] [place] [address] 10/23/2024 9:00 AM EDT Clinical Support [facility] [address] [place] [address] [phone] Nichole Lucio RN 505 [place] [address] documented as of this encounter Visit Diagnoses Diagnosis Lumbago of lumbar region with sciatica documented in this encounter Care Teams Risk Control Representative Relationship Specialty Start Date End Date Sudha Mitchell ANP [address] [place] [address] PCP - General Family Medicine 09/29/19 Everett Rojas MD [address] [place] [address] 3rd [place] [address] Cardiology 04/21/24 documented as of this encounter
--- OUTSIDE RECORDS SUMMARY | 2024-08-25 17:38 | XMS_ITS | Encounter Summary ---
Author Organization [employer] Address [address] [facility] 7t [place] [address] Care Team Providers Care Tourist Home Keeper Name Role Phone Stephen Sudha WEI Primary Care Provider Everett Rojas MD Unavailable [phone] Reason for Visit * Reason Comments Med Refill Encounter Details Date Type Department Care Team ([facility] st Contact Info) Description 12/30/2023 Refill [facility] MEDICINE 230 [place] [address] Fabi Boudreaux MD 230 [place] [address] Lumbago of lumbar region with sciatica Social [...] Description 10/06/2024 11:00 AM EDT Office Visit [address] [address] Sudha Mitchell ANP [address] [place] [address] 10/23/2024 9:00 AM EDT Clinical Support [address] [address] Nichole Lucio, MONAE 505 [place] [address] documented as of this encounter Visit Diagnoses Diagnosis Lumbago of lumbar region with sciatica documented in this encounter Care Teams Tourist Home Keeper Relationship Specialty Start Date End Date Sudha Mitchell ANP [address] [place] [address] PCP - General Family Medicine 09/29/19 Everett Rojas MD [address] [place] [address] 3rd [place] [address] Cardiology 04/21/24 documented as of this encounter
--- OUTSIDE RECORDS SUMMARY | 2024-08-25 17:38 | XMS_ITS | Encounter Summary ---
Author Organization [employer] Address [address] [facility] 7t [place] [address] Care Team Providers Care Substation Mechanic Name Role Phone Sudha Mithcell Primary Care Provider [phone] Everett Rojas MD Unavailable [phone] Reason for Visit * Reason Onset Date Comments Pre-op Visit 12/20/2023 Encounter Details Date Type Department Care Team ([facility] st Contact Info) Description 12/20/2023 Telephone [facility] MED[facility]INE 230 [place], [place] [phone] Sudha Mitchell ANP 230 [place] [address] Pre-op Visit Social History Tobacco Use Types [...] [facility] Surgeon's office number: [phone] Ext [phone] Surgeon's office fax number: [phone] Contact name: Mara Last office note from surgeon requested: Yes documented in this encounter Plan of Treatment Upcoming Encounters Date Type Department Care Team ([facility] st Contact Info) Description 10/06/2024 11:00 AM EDT Office Visit [facility] [address] [place] [address] Sudha Mitchell ANP 230 [place] [address] 10/23/2024 9:00 AM EDT Clinical Support [facility] [address] [place] [address] Nichole Lucio, RN 505 [place] [address] documented as of this encounter Visit Diagnoses Not on filedocumented in this encounter Care Teams Substation Mechanic Relationship Specialty Start Date End Date Sudha Mitchell ANP [address] [place] [address] PCP - General Family Medicine 09/29/19 Everett Rojas MD [address] [place] [address] 3rd [place] [address] Cardiology 04/21/24 documented as of this encounter
--- OUTSIDE RECORDS SUMMARY | 2024-08-25 17:38 | XMS_ITS | Encounter Summary ---
Author Organization [employer] Address [address] [facility] 7t [place] [address] Care Team Providers Care Publishing Director Name Role Phone Sudha Mitchell Primary Care Provider [phone] Everett Rojas MD Unavailable [phone] Reason for Visit * Reason Comments Med Refill Encounter Details Date Type Department Care Team (Late st Contact Info) Description 03/23/2024 Refill [facility] PEDS [address] [place], [place] [phone] Sudha Mitchell ANP [address] [place] [address] Lumbago of lumbar region with sciatica Social [...] Description 10/06/2024 11:00 AM EDT Office Visit [facility] MEDICINE [address] [place] [address] Sudha Mitchell ANP [address] [place] [address] 10/23/2024 9:00 AM EDT Clinical Support [facility]INE [address] [place] [address] Nichole Lucio, MONAE 505 [place] [address] documented as of this encounter Visit Diagnoses Diagnosis Lumbago of lumbar region with sciatica documented in this encounter Care Teams Publishing Director Relationship Specialty Start Date End Date Sudha Mitchell ANP [address] [place] [address] PCP - General Family Medicine 09/29/19 Everett Rojas MD [address] 3rd [place] [address] Cardiology 04/21/24 documented as of this encounter
== END 2024-08-25 15:24 | disposition home or self-care (01) ==
LOC: HO.HCS 14:25
PROVIDERS: PCP Nurse Practitioner Primary Care; Visit Provider Internal Medicine
DX: I48.0 Paroxysmal atrial fibrillation (principal); I10 Essential (primary) hypertension
CPT/HCPCS: 99214

== ENCOUNTER → 2024-08-25 14:25 | Outpatient (BNVA) | payer MEDICAID, SELFPAY | PROVIDERS: PCP Nurse Practitioner Primary Care; Visit Provider Internal Medicine | DX: I48.0 Paroxysmal atrial fibrillation (principal); I10 Essential (primary) hypertension | CPT/HCPCS: 99212 ==

== ENCOUNTER → 2024-09-07 10:23 | Outpatient (BNV) | payer MEDICAID, SELFPAY | PROVIDERS: PCP Nurse Practitioner Primary Care; Visit Provider Radiology Diagnostic Radiology | DX: K74.60 Unspecified cirrhosis of liver (principal); K76.9 Liver disease, unspecified; K80.80 Other cholelithiasis without obstruction | CPT/HCPCS: 74183 ==

== ENCOUNTER 2024-09-07 10:26 | Outpatient (REF) | payer MEDICAID, SELFPAY ==
--- NOTE | ~2024-09-07 | MR_ITS ---
EXAMINATION: MRI Abdomen without and with contrast HISTORY: K74.60 - Unspecified cirrhosis of liver COMPARISON: There are comparison is made with the prior examination dated 07/30/2022. TECHNIQUE: Axial in and out of phase T1-weighted gradient echo, axial diffusion weighted, and axial and coronal HASTE T2 with fat saturation images were obtained through the abdomen. Subsequently, fat suppressed axial and coronal T1-weighted images were obtained after the intravenous administration of 7.5 mL Gadavist. FINDINGS: There is heterogeneous loss of signal intensity within the liver on opposed phase imaging, consistent with steatosis. The liver demonstrates a nodular contour, consistent with cirrhosis. There is hypertrophy of the left lobe. The hepatic and portal veins are patent. There is no intra or extrahepatic biliary ductal dilatation. There are areas of interest within the liver as described below: Lesion #: 1 Location: segment VIII Size: 2.4 cm T2 signal intensity: Heterogeneously hyperintense Arterial Phase Hyperenhancement (APHE): yes Additional Major Features Enhancing Capsule: no Nonperipheral washout: yes Threshold Growth: yes, previously 1.3 cm LI-RADS Category: LR-5 Definitely HCC Lesion #: 2 Location: segment I Size: 2.4 cm T2 signal intensity: Mildly hyperintense Arterial Phase Hyperenhancement (APHE): yes Additional Major Features Enhancing Capsule: yes Nonperipheral washout: yes Threshold Growth: yes, new lesion LI-RADS Category: LR-5 Definitely HCC There is cholelithiasis. The pancreas and adrenal glands are unremarkable. Again seen is an 8 mm T2 hyperintense lesion in the spleen without change. There is a 1.1 cm left renal cyst. The right kidney is unremarkable. No retroperitoneal lymphadenopathy or ascites is identified in the upper abdomen. There is degenerative disc disease of the spine. MR/MR abdomen wo/w con IMPRESSION: 1. Hepatic cirrhosis. Masses are identified in segments VIII and I within the liver as described above, compatible with hepatocellular carcinoma. Findings were sent via secure text message to Dr. Pelletier on on 09/09/2024 at 11:05 AM. 2. Cholelithiasis. Electronically signed by: Atul Mejía MD 09/09/2024 11:03 AM EDT
[2024-09-07] MEDS: gadobutroL 7.5 ML VIAL IVPUSH (11:33)
--- OUTSIDE RECORDS SUMMARY | 2024-09-07 12:14 | XMS_ITS | Encounter Summary ---
Author Organization [employer] Address [address] [facility] 7t [place] [address] Care Team Providers Care Hard Hat Diver Name Role Phone Sudha Mitchell Primary Care Provider [phone] Everett Rojas MD Unavailable [phone] Reason for Visit * Reason Comments Med Refill Encounter Details Date Type Department Care Team (Late st Contact Info) Description 09/18/2023 Refill [facility] [address] [place], [place] [phone] Sudha Mitchell ANP [address] [place] [address] Lumbago of lumbar region with sciatica Social [...] Description 10/06/2024 11:00 AM EDT Office Visit [address] [address] Sudha Mitchell ANP [address] [place] [address] 10/23/2024 9:00 AM EDT Clinical Support [address] [address] Nichole Lucio, MONAE 505 [place] [address] documented as of this encounter Visit Diagnoses Diagnosis Lumbago of lumbar region with sciatica documented in this encounter Care Teams Hard Hat Diver Relationship Specialty Start Date End Date Sudha Mitchell ANP [address] [place] [address] PCP - General Family Medicine 09/29/19 Everett Rojas MD [address] [place] [address] 3rd [place] [address] Cardiology 04/21/24 documented as of this encounter
--- OUTSIDE RECORDS SUMMARY | 2024-09-07 12:14 | XMS_ITS | Encounter Summary ---
Author Organization [employer] Address [address] [facility] 7t [place] [address] Care Team Providers Care Financial Planning Analyst Name Role Phone Sudha Mitchell Primary Care Provider [phone] Everett Rojas MD Unavailable [phone] Reason for Visit * Reason Comments Med Refill Encounter Details Date Type Department Care Team (Late st Contact Info) Description 03/23/2024 Refill [facility] MED & PEDS [address] [place], [place] [phone] Sudha Mitchell ANP [address] [place] [address] Lumbago of lumbar region with sciatica Social [...] Description 10/06/2024 11:00 AM EDT Office Visit [facility] MEDICINE [address] [place] [address] Sudha Mitchell ANP [address] [place] [address] 10/23/2024 9:00 AM EDT Clinical Support [facility] MEDICINE [address] [place] [address] Nichole Lucio, MONAE 505 [place] [address] documented as of this encounter Visit Diagnoses Diagnosis Lumbago of lumbar region with sciatica documented in this encounter Care Teams Financial Planning Analyst Relationship Specialty Start Date End Date Sudha Mitchell ANP [address] [place] [address] PCP - General Family Medicine 09/29/19 Everett Rojas MD [address] 3rd [place] [address] Cardiology 04/21/24 documented as of this encounter
--- OUTSIDE RECORDS SUMMARY | 2024-09-07 12:14 | XMS_ITS | Encounter Summary ---
Author Organization [employer] Address [address] [place] [address] 7t [place] [address] Care Team Providers Care Compress Engineer Name Role Phone Sudha Mitchell Primary Care Provider [phone] Everett Rojas MD Unavailable [phone] Reason for Visit * Reason Comments Med Refill Encounter Details Date Type Department Care Team (Late st Contact Info) Description 08/14/2022 Refill [facility] MEDICINE [address] [place] [address] [place] [facility] 230 [place] [address] Lumbago of lumbar region with sciatica Social [...] 10/06/2024 11:00 AM EDT Office Visit [facility]INE [address] [place] [address] Sudha Mitchell ANP 230 [place] [address] 10/23/2024 9:00 AM EDT Clinical Support [facility] [address] [place] [address] Nichole Lucio, RN 505 [place] [address] documented as of this encounter Visit Diagnoses Diagnosis Lumbago of lumbar region with sciatica documented in this encounter Care Teams Compress Engineer Relationship Specialty Start Date End Date Sudha Mitchell ANP [address] [place] [address] PCP - General Family Medicine 09/29/19 Everett Rojas MD [address] [place] [address] 3rd [place] [address] Cardiology 04/21/24 documented as of this encounter
--- OUTSIDE RECORDS SUMMARY | 2024-09-07 12:14 | XMS_ITS | Encounter Summary ---
Author Organization [employer] Address [address] [place] [address] 7t [place] [address] Care Team Providers Care Hyperbaric Welder Diver Name Role Phone Sudha Mitchell Primary Care Provider Everett Rojas MD Unavailable [phone] Reason for Visit * Reason Comments Med Refill Encounter Details Date Type Department Care Team (Late st Contact Info) Description 01/22/[address] [facility] MEDICINE [address] [place] [phone] Sudha Mitchell ANP 230 [place], [place] [phone] Lumbago of lumbar region with sciatica Social [...] 11:00 AM EDT Office Visit [facility] MEDICINE [address] [place] [address] [phone] Sudha Mitchell ANP 230 [place], [place] [phone] 10/23/2024 9:00 AM EDT Clinical Support [facility] MEDICINE 230 [place] [address] Nichole Lucio, MONAE [address] [place] [address] documented as of this encounter Visit Diagnoses Diagnosis Lumbago of lumbar region with sciatica documented in this encounter Care Teams Hyperbaric Welder Diver Relationship Specialty Start Date End Date Sudha Mitchell ANP 230 [place] [address] PCP - General Family Medicine 09/29/19 Everett Rojas MD [address] [place] [address] 3rd [place] [address] Cardiology 04/21/24 documented as of this encounter
--- OUTSIDE RECORDS SUMMARY | 2024-09-07 12:14 | XMS_ITS | Encounter Summary ---
Author Organization [employer] Address 75 [facility] 7t [place] [address] Care Team Providers Care Vice President Of Manufacturing Name Role Phone Sudha Mitchell Primary Care Provider [phone] Everett Rojas MD Unavailable [phone] Reason for Visit * Reason Onset Date Comments Pre-op Visit 12/20/2023 Encounter Details Date Type Department Care Team ([facility] st Contact Info) Description 12/20/2023 Telephone [facility] MEDICINE 230 [place], [place] [phone] Sudha Mitchell ANP 230 [place] [address] Pre-op Visit Social History Tobacco Use Types [...] [facility] Surgeon's office number: [phone] Ext [phone] Surgeon's office fax number: [phone] Contact name: Mara Last office note from surgeon requested: Yes documented in this encounter Plan of Treatment Upcoming Encounters Date Type Department Care Team ([facility] st Contact Info) Description 10/06/2024 11:00 AM EDT Office Visit [facility] MEDICINE [address] [place] [address] Sudha Mitchell ANP 230 [place] [address] 10/23/2024 9:00 AM EDT Clinical Support [facility] MEDICINE [address] [place] [address] Nichole Lucio, RN 505 [place] [address] documented as of this encounter Visit Diagnoses Not on filedocumented in this encounter Care Teams Vice President Of Manufacturing Relationship Specialty Start Date End Date Sudha Mitchell ANP [address] [place] [address] PCP - General Family Medicine 09/29/19 Everett Rojas MD [address] [place] [address] 3rd [place] [address] Cardiology 04/21/24 documented as of this encounter
--- OUTSIDE RECORDS SUMMARY | 2024-09-07 12:14 | XMS_ITS | Encounter Summary ---
Author Organization [employer] Address [address] [place] [address] 7t [place] [address] Care Team Providers Care Blocking Machine Operator Name Role Phone Sudha Mitchell Primary Care Provider [phone] Everett Rojas MD Unavailable Reason for Visit * Reason Comments Med Refill Encounter Details Date Type Department Care Team (Late st Contact Info) Description 05/02/2022 Refill [facility] CH[facility] MED & PEDS 505 [place], [place] [phone] Sudha Mitchell ANP 230 [place] [address] Cervicalgia Social History Tobacco Use Types Packs/Day [...] 11:00 AM EDT Office Visit [facility] MEDICINE [address] [place] [address] Sudha Mitchell ANP 230 [place] [address] 10/23/2024 9:00 AM EDT Clinical Support [facility] MEDICINE [address] [place] [address] Nichole Lucio RN 505 [place] [address] documented as of this encounter Visit Diagnoses Diagnosis Cervicalgia documented in this encounter Care Teams Blocking Machine Operator Relationship Specialty Start Date End Date Sudha Mitchell ANP [address] [place] [address] PCP - General Family Medicine 09/29/19 Everett Rojas MD [address] [place] [address] 3rd [place] [address] Cardiology 04/21/24 documented as of this encounter
--- OUTSIDE RECORDS SUMMARY | 2024-09-07 12:14 | XMS_ITS | Encounter Summary ---
Author Organization [employer] Address [address] [facility] 7t [place] [address] Care Team Providers Care Seed Cutter Name Role Phone Sudha Mitchell Primary Care Provider [phone] Everett Rojas MD Unavailable [phone] Reason for Visit * Reason Comments Med Refill Encounter Details Date Type Department Care Team (Late st Contact Info) Description 02/20/2024 Refill [facility] [address] [place], [place] [phone] Sudha Mitchell ANP [address] [place] [address] Lumbago of lumbar region with sciatica Social [...] Description 10/06/2024 11:00 AM EDT Office Visit [facility] [address] [place] [address] Sudha Mitchell ANP [address] [place] [address] 10/23/2024 9:00 AM EDT Clinical Support [facility] [address] [place] [address] Nichole Lucio, MONAE 505 [place] [address] documented as of this encounter Visit Diagnoses Diagnosis Lumbago of lumbar region with sciatica documented in this encounter Care Teams Seed Cutter Relationship Specialty Start Date End Date Sudha Mitchell ANP [address] [place] [address] PCP - General Family Medicine 09/29/19 Everett Rojas MD [address] 3rd [place] [address] Cardiology 04/21/24 documented as of this encounter
--- OUTSIDE RECORDS SUMMARY | 2024-09-07 12:14 | XMS_ITS | Encounter Summary ---
Author Organization [employer] Address [facility] 7t [place] [address] Care Team Providers Care Principal Electrical Engineer Name Role Phone Stephen Sudha WEI Primary Care Provider [phone] Everett Rojas MD Unavailable [phone] Reason for Visit * Reason Comments Med Refill Encounter Details Date Type Department Care Team ([facility] st Contact Info) Description 12/30/2023 Refill [facility] MEDICINE 230 [place] [address] Fabi Boudreaux MD [address] [place] [address] Lumbago of lumbar region with sciatica Social [...] Description 10/06/2024 11:00 AM EDT Office Visit [address] [address] Sudha Mitchlel ANP [address] [place] [address] 10/23/2024 9:00 AM EDT Clinical Support [address] [address] Nichole Lucio, MONAE 505 [place] [address] documented as of this encounter Visit Diagnoses Diagnosis Lumbago of lumbar region with sciatica documented in this encounter Care Teams Principal Electrical Engineer Relationship Specialty Start Date End Date Sudha Mitchell ANP [address] [place] [address] PCP - General Family Medicine 09/29/19 Everett Rojas MD [address] [place] [address] 3rd [place] [address] Cardiology 04/21/24 documented as of this encounter
--- OUTSIDE RECORDS SUMMARY | 2024-09-07 12:14 | XMS_ITS | Encounter Summary ---
Author Organization [employer] Address [address] [facility] 7t [place] [address] Care Team Providers Care Toll Test Desk Worker Name Role Phone Sudha Mitchell Primary Care Provider [phone] Everett Rojas MD Unavailable [phone] Reason for Visit * Reason Comments Med Refill Encounter Details Date Type Department Care Team ([facility] st Contact Info) Description 10/18/2023 Refill [facility] MEDICINE 230 [place] [address] Sudha Mitchell ANP 230 [place] [address] Lumbago of lumbar region with sciatica Social [...] Description 10/06/2024 11:00 AM EDT Office Visit [address] [address] Sudha Mitchell ANP [address] [place] [address] 10/23/2024 9:00 AM EDT Clinical Support [address] [address] Nichole Lucio RN 505 [place] [address] documented as of this encounter Visit Diagnoses Diagnosis Lumbago of lumbar region with sciatica documented in this encounter Care Teams Toll Test Desk Worker Relationship Specialty Start Date End Date Sudha Mitchell ANP [address] [place] [address] PCP - General Family Medicine 09/29/19 Everett Rojas MD [address] [place] [address] 3rd [place] [address] Cardiology 04/21/24 documented as of this encounter
--- OUTSIDE RECORDS SUMMARY | 2024-09-07 12:14 | XMS_ITS | Clinical Summary ---
Author Organization [employer] Address [address] [facility] 7t [place] [address] Care Team Providers Care Wooden Shade Hardware Installer Name Role Phone Stephen Tom WEI Primary Care Provider [phone] Everett Rojas MD Unavailable [phone] Allergies Active Allergy Reactions Criticality Noted Date Comments Rivaroxaban High 03/28/2020 GIB Shellfish Allergy Anaphylaxis High 03/12/2023 Patient reported Medications metoprolol succinate XL (Toprol-XL) 25 MG 24 hr tablet TAKE 2 TABLETS BY MOUTH ONCE DAILY IN THE MORNING 04/16/20 22 Active hydroCHLOROthiaz john (HYDRODiuril) 25 MG tablet Take 25 mg by mouth in the morning. 04/16/20 22 Active albuterol (2.5 MG/3ML) 0.083% nebulizer solution INHALE 1 AMPULE USING A NEBULIZER EVERY 6 HOURS NEEDED 03/15/20 22 Active cholecalciferol (Vitamin D-3) 25 MCG tablet Take 25 mcg by mouth in the morning. 03/15/20 22 Active Diclofenac Sodium 1 % gelIndications:C hronic pain of right knee Apply 2 G up to 4x/d as needed for joint pain 100 g 2 09/19/19 23 Active Additional Information Patient not taking.Reported on 01/02/2024 betamethasone, augmented, (Diprolene) 0.05 % ointmentIndicati ons:Skin lesion Apply topically 2 times daily. 45 g 01/16/20 23 Active albuterol 108 (90 Base) MCG/ACT inhalerIndicatio ns:Moderate persistent asthma without complication Inhale 2 puffs every 4 (four) hours if needed for wheezing. 18 g 1 01/16/20 23 Active EPINEPHrine (Epipen) 0.3 MG/0.3ML injection syringeIndicatio ns:Seafood allergy Inject 0.3 mL (0.3 mg) as directed 1 (one) time if needed for anaphylaxis for up to 1 dose. Inject into upper leg. Call 911 after use. 2 each 1 03/21/20 23 Active Mometasone Furoate (Asmanex HFA) 100 MCG/ACT aerosol INHALE 1 PUFF TWICE DAILY. RINSE MOUTH AFTER USING 13 g 5 09/05/19 24 Active triamcinolone (Kenalog) 0.1 % creamIndications :Venous stasis dermatitis of both lower extremities MIX WITH CERAVE DIRECTED 80 g 1 09/27/19 24 Active ceramides (CeraVe) moisturizing creamIndications :Venous stasis dermatitis of both lower extremities MIX WITH TRIAMCINOLONE AND APPLY TO THE AFFECTED AREA(S) ONCE DAILY NEEDED FOR DRY SKIN 453 g 1 09/27/19 24 Active digoxin (Lanoxin) 125 MCG tablet Take 125 mcg by mouth Once per day. 12/24/19 24 Active Eliquis 5 MG tablet TAKE 1 TABLET BY MOUTH TWICE DAILY IN THE MORNING AND IN THE EVENING 12/24/19 24 Active lidocaine (Lidoderm) 5 % patchIndications :Acute pain of right knee Apply 1 patch topically Once per day. 30 patch 3 01/02/20 24 Active Calcium Carb-Cholecalcif nicolle 600-10 MG-MCG tablet TAKE 1 TABLET BY MOUTH TWICE DAILY IN THE MORNING AND AT BEDTIME 180 tablet 3 06/10/19 25 Active traMADol (Ultram) 50 MG tabletIndication s:Lumbago of lumbar region with sciatica TAKE 1 TABLET BY MOUTH EVERY TWELVE HOURS NEEDED FOR SEVERE PAIN 56 tablet 08/01/19 25 Active montelukast (Singulair) 10 MG tablet TAKE 1 TABLET BY MOUTH AT BEDTIME 90 tablet 3 08/05/19 25 Active Active Problems Problem Noted Date Diagnosed Date [...] 04/16/2023 Overview (04/16/2023): EGD repeat due 05/2023 [facility] History of Helicobacter pylori infection 023 Overview (04/16/2023): tx'd 10/2021 via [facility] Cirrhosis of liver without ascites 04/16/2023 Overview (04/16/2023): compensated. thought to be d/t CARTWRIGHT vs. HCV. Follows w/ [facility] and had abd MRI to eval liver lesion 07/2022. 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 11/25/2015 Benign essential hypertension 11/25/2015 Chronic hepatitis C 11/25/2015 Moderate persistent asthma 11/25/2015 Encounters Date Type Department Care Team Description 08/11/[address] [address] Tom Trujillo ANP Durable Medical Equipment (cane) 08/05/[address] [address] Tom Trujillo ANP 08/04/[address] [address] Tom Trujillo ANP 07/31/2024 8:30 AM EDT Clinical Support [address] [address] Nichole Lucio RN 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ciatica (Primary Dx); Long-term current use of opiate analgesic 07/31/2024 Refill [facility] [address] [place], [place] [phone] Tom Trujillo ANP Lumbago of lumbar region with sciatica 07/31/2024 Travel 07/22/2024 Outside Procedure [facility] [address] [place] [phone] Magen, Modesta, OD Presbyopia of both eyes (Primary Dx) 07/20/2024 10:15 AM EDT Office Visit [facility] [address] [place] [phone] Magen, Modesta, OD Hyperopia of both eyes (Primary Dx) 07/06/2024 2:15 PM EST Office Visit [address] [address] Tom Trujillo ANP Paroxysmal atrial fibrillation (CMS/HCC) (Primary Dx); Arthritis of right knee; Healthcare maintenance; Thrombocytopenia (CMS/HCC) 07/06/2024 Travel 06/30/[address] [address] Barbie Munroe MA chart prep 06/18/2024 Patient Outreach [address] [address] Tom Trujillo ANP Pre-visit Planning (SDOH Screening negative and Tobacco screening negative) 06/12/2024 8:30 AM EST Clinical Support [facility] [address] [place] [address] Nichole Lucio, hydrology professor midline low back pain with right-sided sciatica 06/12/2024 Telephone [facility] [address] [place] [address] Nichole Lucio, MONAE 06/12/2024 Travel 06/10/2024 Refill [facility] [address] [place] [address] Tom Trujillo ANP from Last 3 Months [...] Office Visit [facility] [address] [place] [address] Tom Trujillo ANP [address] [place] [address] 10/23/2024 9:00 AM EDT Clinical Support [facility] [address] [place] [address] Nichole Lucio, RN [address] [place], [place] [phone] Health Maintenance Due Date Last Done Comments [...] Routine 09/16/2023 9:41 AM EDT Atherosclerosis of wiyot 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 White Blood Count 4.2(L) 4.8 - 10.8 X10*3/uL [facility] Red Blood Count 4.26 4.20 - 5.50 X10*6/uL [facility] Hemoglobin 12.8 12.0 - 16.0 g/dl [facility] Hematocrit 39.4 37.0 - 47.0 % [facility] Mean Corpuscular Volume 92.5 80.0 - 98.0 fL [facility] Mean Corpuscular Hemoglobin 30.0 27.0 - 33.0 pg [facility] Mean Corpuscular HGB Conc 32.5 31.0 - 35.0 g/dl [facility] Red Cell Distribution Width 14.4 11.0 - 16.0 % [facility] Platelet Count 139(L) 160 - 400 X10*3/uL [facility] Mean Platelet Volume 10.6 9.4 - 12.3 fL [facility] Neutrophils Percent Auto 64.4 45 - 73 % [facility] Imm Gran Pct Auto 0.2 0.0 - 0.4 % [facility] Lymphocytes Percent Auto 22.1 20 - 40 % [facility] Monocytes Percent Auto 10.6 2 - 11 % [facility] Eosinophils Percent Auto 2.2 0 - 4 % [facility] Basophils Percent Auto 0.5 0 - 2 % [facility] NRBC Pct Auto 0.0 0.0 - 0.2 /100WBC [facility] Neutrophils Absolute Auto 2.7 2.0 - 8.3 x10*3/uL [facility] Imm Gran Abs Auto 0.01 0.00 - 0.03 X10*3/uL [facility] Lymphocytes Absolute Auto 0.9(L) 1.2 - 4.9 X10*3/uL [facility] Monocytes Absolute Auto 0.4 0.1 - 1.2 X10*3/uL [facility] Eosinophils Absolute Auto 0.1 0.0 - 0.4 X10*3/uL [facility] Basophils Absolute Auto 0.0 0.0 - 0.2 X10*3/uL [facility] NRBC Abs Auto 0.000 0.0 - 0.012 X10*3/uL [facility] Blood Venous blood specimen / Unknown 07/31/2024 9:00 AM EDT 07/31/2024 11:07 AM EDT Tom Trujillo ANP LAB BLOOD ORDERABLES Final Resul t Performing Organization Address [facility] Co de Phone Number [facility] [address] [place] [phone] * Hepatitis B surface antigen, EIA (07/31/2024 9:00 AM EDT) Hepatitis B Surface Ag Negative Negative [facility] Blood Venous blood specimen / Unknown 07/31/2024 9:00 AM EDT 07/31/2024 11:07 AM EDT Tom Trujillo [facility] LAB BLOOD ORDERABLES Final Resul t Performing Organization Address [facility] Co de Phone Number [facility] [address] [place] [phone] * Hepatitis B Core Antibody, Total (07/31/2024 9:00 AM EDT) Hepatitis B Core Antibody Nonreactive Nonreactive [facility] Blood Venous blood specimen / Unknown 07/31/2024 9:00 AM EDT 07/31/2024 11:07 AM EDT Tom Trujillo [facility] LAB BLOOD ORDERABLES Final Resul t Performing Organization Address [facility] Co de Phone Number [facility] [address] [place] [phone] * Hepatitis B Surface Antibody, Qualitative (07/31/2024 9:00 AM EDT) ~Hepatitis B Surface Antibody REACTIVE Nonreactive [facility] Comment:REACTIVE: > 11.99 mI U/mL Blood Venous blood specimen / Unknown 07/31/2024 9:00 AM EDT 07/31/2024 11:07 AM EDT Tom Trujillo [facility] LAB BLOOD ORDERABLES Final Resul t Performing Organization Address [facility] Co de Phone Number [facility] [address] [place] [phone] * POCT KRISHAN-14 Urine Drug Screen (07/31/2024 8:56 AM EDT) Only the most recent of2 resultswithin the time period is included. Urine Urine specimen obtained by clean catch procedure / Unknown 07/31/2024 8:56 AM EDT Narrative Nichole Lucio RN - 07/31/2024 8:56 AM EDT .UTOX cup Lot#[id number] Exp. 12/30/25 Internal Pass Control negative AMP, BAR, BUP, BZO, LILIYA, FTY, MDMA, MET, MOP, MTD, OXY, PCP, TCA, THC. Tom Trujillo [facility] POINT OF CARE TEST ENTER/EDIT OR DERABLES Final Result * Vitamin D, 25-Hydroxy, Total, Immunoassay (07/06/2024 12:41 PM EST) Vitamin D 25-OH Total 64.7 >30 ng/mL [facility] Comment:Health Based Referen ce Values*< 20 ng/mL Plbmqozxc00-26 ng/mL Insufficient> 30 ng/mL Sufficient*Yulissa MCGRATH. N [...] ORDERAB LES Final Result Performing Organization Address [facility] de Phone Number [facility] [address] [place] [address] [phone] * (ABNORMAL) Zinc (07/06/2024 12:41 PM EST) Zinc 53(A) 60 - 130 mcg/dL [facility] Comment:This test was develo ped and its analytical performancecharacteristics have been determined by [employer] [place], [place]. It hasnot been cleared or approved by the U.S. Food and DrugAdministration. This assay has been validated pursuantto the CLIA regulations and is used for clinicalpurposes.THIS TEST WAS PERFORMED AT:[facility] [place] [address]ESDZUIQMYLES GRACE MD,PHD 07/06/2024 12:4 1 PM EST 07/06/2024 12:46 PM EST Generic External Data Provider LAB BLOOD ORDERAB LES Final Result Performing Organization Address [facility] Co de Phone Number [facility] [address] [place] [phone] * (ABNORMAL) Prothrombin Time-INR (07/06/2024 12:41 PM EST) Prothrombin Time 17.8(H) 10.9 - 12.4 SEC [facility] INTERNATIONAL NORM RATIO 1.5(H) 0.9 - 1.1 [facility] Comment:INTERNATIONAL NORMAL IZED RATIO (INR) [...] Provider LAB BLOOD ORDERAB LES Final Result [facility] [address] [place] [phone] * (ABNORMAL) Comprehensive Metabolic Panel (07/06/2024 12:41 PM EST) Pathologist [facility] Sodium 144 135 - 145 mmol/L [facility] Potassium 3.8 3.3 - 5.1 mmol/L [facility] Chloride 107 96 - 108 mmol/L [facility] Carbon Dioxide 30(H) 22 - 29 mmol/L [facility] Anion Gap 11(L) 12 - 20 [facility] Urea Nitrogen (BUN) 19(H) 9 - 16 mg/dL [facility] Creatinine, Serum 0.77 0.5 - 1.4 mg/dL [facility] Estimated Glomerular Filt Rate >60 [facility] Comment:Chronic Kidney Disea se: Estimated GFR < 60 mL/min/[id number] Kidney Disease: Estimated GFR < 15 mL/min/1.73m2 Glucose 97 60 - 115 mg/dL [facility] Calcium 9.6 8.4 - 10.2 mg/dL [facility] Bilirubin, Total 0.8 0.0 - 1.0 mg/dL [facility] Aspartate Amino Transferase 40(H) 5 - 31 U/L [facility] Alanine Aminotransferase 39(H) 0 - 31 U/L [facility] Total Protein 7.7 6.5 - 8.0 g/dL [facility] Albumin Level 3.6 3.5 - 5.0 g/dL [facility] Alkaline Phosphatase 47 39 - 117 U/L [facility] 07/06/2024 12:4 1 PM EST 07/06/2024 12:46 PM EST us Generic External Data Provider LAB BLOOD ORDERAB LES Final Result Performing Organization Address [facility]/State/[facility] de Phone Number [facility] [address] [place] [phone] * BD DEXA Axial (06/09/2024 1:30 PM EST) Anatomical Region Laterality Modality Body Radiographic Dawn ging 06/09/2024 1:30 PM EST Narrative 06/15/2024 11:35 AM EST ? [facility] ? [address] ?[place] [address] ? Mammography Report ? Signed ? Patient: Rudolph Torres,Virgenmina ?MR ?? #: [id number] ? : 1955 ?Acct:[id number] ? Age/Sex: 68 / F ?ADM Date: 01/28/25 ? Loc: HO.MAMMO ? Attending Dr: Tom Trujillo RETAIL MERCHANDISING SPECIALIST ? Ordering Physician: TOM TRUJILLO NP ?Results: ? Date of Service: 06/09/24 ?Follow Up: ? Procedure(s): XR DEXA axial skeleton ?? Accession Number(s): [id number] ? cc: TOM TRUJILLO NP ? EXAMINATION: ??DXA BONE DENSITY AXIAL ? HISTORY: ??Estrogen deficiency ? TECHNIQUE: [employer] Dual energy absorptiometry (DEXA) ?? of the [...] [facility] [employer] ?? [facility] Disease, a World Health Organization (WHO) ?? Collaborating Center. ? Electronically signed by: ??Atul Mejía MD ??06/15/2024 11:32 AM EST ?? RP ? Dictated By: ?Atul Mejía MD ? Signed By: ?<Electronically signed by Atul Mejía MD in OV> ?06/15/24 1132 ? DD/ 1330 ? TD/TT: 06/09/24 1400 ? Utility Maintenance Worker: ? Procedure Note Donotuseinterpreter, Image - 06/15/2024 Cynthia [facility] [address] [place] [address] Mammography Report Signed Patient: Kenyon Rajan #: [id number] : 4Acct:[id number] Age/Sex: 68 / FADM Date: 06/09/24 Loc: LEE Attending Dr: Tom Trujillo NP Ordering Physician: TOM TRUJILLOults: Date of Service: 06/09/24Follow Up: Procedure(s): XR DEXA axial skeleton Accession Number(s): [id number] cc: TOM TRUJILLO NP EXAMINATION: DXA BONE DENSITY AXIAL HISTORY: Estrogen deficiency TECHNIQUE: [employer] Dual energy absorptiometry (DEXA) of the lumbar [...] of the [employer], a World Health Organization (WHO) Collaborating Center. Electronically signed by: Atul Mejía MD 06/15/2024 11:32 AM EST Dictated By: Atul Mejía MD Signed By: <Electronically signed by Atul Mejía MD in OV> 06/15/24 1132 DD/ 1330 TD/TT: 06/09/24 1400 Utility Maintenance Worker: Tom WEI Lesley DXA PROCEDURES Final Result * (ABNORMAL) Lipid Panel, Standard (09/16/2023 9:41 AM EDT) Triglycerides 64 <150 mg/dL [facility] Comment:Desirable Triglyceri de: less than 150 mg/dLBorderline High Triglyceride 150-199 mg/dLHigh Triglyceride: 200-499 mg/dLVery High Triglyceride: greater than or equal to 5OO mg/dL Cholesterol 189 <200 mg/dL [facility] Comment:Desirable Cholestero l: less than 200 mg/dLBorderline High Cholesterol: 200-239 mg/dLHigh Cholesterol: greater than 239 mg/dL LDL Cholesterol Calculated 131(H) <100 mg/dL [facility] Comment:Desirable LDL: less than 100 mg/dLNear Optimal/Above Optimal LDL: 110- 129 mg/dLBorderline High LDL: 130-159 mg/dLHigh LDL: 160-189 mg/dLVery High LDL: greater than or equal to 190 mg/dL HDL Cholesterol 46 >40 mg/dL [facility] Comment:Desirable HDL: great er than 40 mg/dL Note: This HDL assay may give artificially low results in patients with liver disease. Blood Venous blood specimen / Unknown 09/16/2023 9:41 AM EDT 09/16/2023 9:41 AM EDT us [facility] LAB BLOOD ORDERABLES Final Resul t [facility] [address] [place] [phone] [phone] * BI Mammogram Screening Tomosynthesis Bilateral (04/22/2023 3:15 PM EST) Anatomical Region Laterality Modality Breast Bilateral Mammography 04/22/2023 3:15 PM EST Narrative 05/07/2023 8:31 PM EST ? [facility] ? [address] ?[place] [address] ? Mammography Report ? Signed ? Patient: Klaudia Torres,Estellaenmina ?MR ?? #: [id number] ? : 1955 ?Acct:[id number] ? Age/Sex: 67 / F ?ADM Date: 12/11/23 ? Loc: HO.MAMMO ? Attending Dr: Tom Trujillo RETAIL MERCHANDISING SPECIALIST ? Ordering Physician: TOM TRUJILLO NP ?Results: 1Negative ? Date of Service: 04/22/23 ?Follow Up: 1 Year From Orig ?? inal Mammogram ? Procedure(s): MM tomosynthesis screening BI ?? Accession Number(s): [id number] ? cc: TOM TRUJILLO NP ? EXAMINATION: [...] MD in OV> ? 05/07/232026 ? DD/ ? TD/TT: ? Utility Maintenance Worker: ? Procedure Note Donotlaneter, Image - 05/07/2023 [facility] [address] [place] [address] Mammography Report Signed Patient: Sid RajanR #: [id number] : 4Acct:[id number] Age/Sex: 67 / FADM Date: 04/22/23 Loc: LEE Attending Dr: Tom Trujillo NP Ordering Physician: TOM TRUJILLO NPResults: 1Negative Date of Service: 04/22/23Follow Up: 1 Year From Orig inal Mammogram Procedure(s): MM tomosynthesis screening BI Accession Number(s): [id number] cc: TOM TRUJILLO NP EXAMINATION: MM SCREENING [...] MD in OV> 05/07/232026 DD/ 1515 TD/TT: Utility Maintenance Worker: Tom WEI IMG BI PROCEDURES Final Result * Colonoscopy (10/10/2021) Colonoscopy Normal Normal Historical Provider HEALTH MAINTENANCE Final Result from Last 3 Months or Most Recently Relevant to Health Maintenance Insurance [facility] Care Teams Wooden Shade Hardware Installer Relationship Specialty Start Date End Date Tom Trujillo ANP [address] [place] [address] PCP - General Family Medicine 09/29/19 Everett Rojas MD [address] [place] [address] Drive 3rd [place] [address] Cardiology 04/21/24
--- OUTSIDE RECORDS SUMMARY | 2024-09-07 12:14 | XMS_ITS | Encounter Summary ---
Author Organization [employer] Address [address] [place] [address] 7t [place] [address] Care Team Providers Care Joiner Apprentice Name Role Phone Sudha Mitchell Primary Care Provider [phone] Everett Rojas MD Unavailable [phone] Reason for Visit * Reason Comments Med Refill Encounter Details Date Type Department Care Team (Late st Contact Info) Description 06/22/2022 Refill [facility] [address] [place] [phone] Sudha Mitchell ANP [address] [place] [phone] Lumbago of lumbar region with sciatica Social [...] Description 10/06/2024 11:00 AM EDT Office Visit [address] [address] Sudha Mitchell ANP [address] [place] [address] 10/23/2024 9:00 AM EDT Clinical Support [facility] [address] [place] [phone] Nichole Lucio RN [address] [place] [address] documented as of this encounter Visit Diagnoses Diagnosis Lumbago of lumbar region with sciatica documented in this encounter Care Teams Joiner Apprentice Relationship Specialty Start Date End Date Sudha Mitchell ANP [address] [place] [phone] PCP - General Family Medicine 09/29/19 Everett Rojas MD [address] [place] [address] 3rd [place] [address] Cardiology 04/21/24 documented as of this encounter
--- OUTSIDE RECORDS SUMMARY | 2024-09-07 12:14 | XMS_ITS | Encounter Summary ---
Author Organization [employer] Address [address] [place] [address] 7t [place] [address] Care Team Providers Care Court Interpreter Name Role Phone Sudha Mitchell Primary Care Provider [phone] Everett Rojas MD Unavailable [phone] Reason for Visit * Reason Onset Date Comments Med Refill 11/23/2022 Encounter Details Date Type Department Care Team (Late st Contact Info) Description 11/23/2022 Telephone [facility] [address] [place], [place] [phone] Sudha Mitchell ANP [address] [place] [address] Med Refill Social History Tobacco Use Types [...] Description 10/06/2024 11:00 AM EDT Office Visit [address] [address] Sudha Mitchell ANP [address] [place] [address] 10/23/2024 9:00 AM EDT Clinical Support [address] [address] Nichole Lucio, MONAE [address] [place], [place] [phone] documented as of this encounter Visit Diagnoses Not on filedocumented in this encounter Care Teams Court Interpreter Relationship Specialty Start Date End Date Sudha Mitchell ANP [address] [place] [phone] PCP - General Family Medicine 09/29/19 Everett Rojas MD [address] [place] [address] Drive 3rd [place] [address] Cardiology 04/21/24 documented as of this encounter
== END 2024-09-07 10:27 | disposition home or self-care (01) ==
LOC: HO.MRI 10:26
PROVIDERS: PCP Nurse Practitioner Primary Care; Visit Provider Internal Medicine Gastroenterology
DX: K74.60 Unspecified cirrhosis of liver (principal); I48.0 Paroxysmal atrial fibrillation
CPT/HCPCS: 74183; 93246; A9585

== ENCOUNTER → 2024-09-07 11:32 | Outpatient (BNV) | payer MEDICAID, SELFPAY | PROVIDERS: PCP Nurse Practitioner Primary Care; Visit Provider Internal Medicine Cardiovascular Disease | DX: R00.1 Bradycardia, unspecified (principal) | CPT/HCPCS: 93248 ==

== ENCOUNTER 2024-09-14 11:37 | Outpatient (AMB) | payer MEDICAID, SELFPAY ==
--- NOTE | 2024-09-14 11:43 | MHC.OFFVIS ---
Vital Signs 09/14/24 11:44 Height 4 ft 11 in Weight 152 lb 1.903 oz BMI 30.7 BP 132/63 Blood Pressure Location Lt brachial Position Sitting Pulse 69 Intake Visit Reasons: Liver Carcinoma Intake Note: Walt presents in the office as a follow up. CC: Little pains in the LUQ. Allergies rivaroxaban [From XARELTO] Allergy (Intermediate, Verified 07/06/24 11:44) GI BLEEDING SEAFOOD Allergy (Intermediate, Uncoded 12/31/23 19:11) RASH HPI HPI Liver Carcinoma: Details: 69 y/o woman w/ HTN, asthma, p-A-fib presenting today for f/u for compensated cirrhosis. RECAP: Had been seeing Dr austin for cirrhosis, presumed due to CARTWRIGHT or prior Hep C (treated 2015) never been heavy drinker she got the covid vaccine MELD 9 in the past Hep C serology pos but PCR was negative MRI 07/2021- cirrhosis, gallstones EGD/colonoscopy-09/2021- x 1 varix noted, H pylori pos and treated with levo, amoxil and pantoprazole, TA removed EGD: 12/03-- flat varix INTERIM: she is well, no complaints no abdominal pain no nausea or vomiting she has no confusion, memory is good no abdominal distention no melena or rectal bleeding We reivewed results of MRI--read as showing HCC x 2 spots EXAM: GENERAL: The patient is well developed and nontoxic. VITAL SIGNS:see workflow HEENT: Nonicteric sclerae, PERRLA, EOMI. Oropharynx clear. Moist mucous membranes. Conjunctivae appear well perfused. No thyroid mass. CHEST: Chest wall is nontender. HEART: Regular rate and rhythm without murmurs. LUNGS: Clear to auscultation bilaterally. ABDOMEN: Soft, positive bowel sounds, nontender, no organomegaly.no flank tenderness SKIN: No rash, no excessive bruising, petechiae, or purpura. NEUROLOGIC: Cranial nerves II-XII intact without motor/sensory deficit. A/P: 1. Cirrhosis, prob CARTWRIGHT related or from prior Hep C--MELD Na--8-9 range but higher now with potential exception points for HCC 2. hx of TA 3. H pylori s/p treatment--cured plan; 1/ Recheck labs today incl HCV PCR 2/ refer IR, just turned 69, discussed might still be candidate for transplant guve she is otherwise healthy, she will consider 3/ varices--repeat EGD, in 2-3 yr--- 4/ HE-no overt evidence 5/ ascites: no evidence of ascites on exam PFS Medical History Hemorrhage of gastrointestinal tract, unspecified PAF (paroxysmal atrial fibrillation) Tubular adenoma of colon Low vitamin D level Atrial fibrillation Cirrhosis of liver Asthma Hepatitis B Surgical History (Updated 09/14/24 @ 11:44 by LIANET Lee) Hx of cataract surgery History of eyelid surgery History of esophagogastroduodenoscopy (EGD) Hx of colonoscopy History of total abdominal hysterectomy and bilateral salpingo-oophorectomy History of 3 sections Family History Father No problems noted. Mother No problems noted. 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 Panel Today K74.60 - Unspecified cirrhosis of liver, K75.81 - Nonalcoholic steatohepatitis (CARTWRIGHT) Prothrombin Time INR Today K74.60 - Unspecified cirrhosis of liver Coding Level of Care Code Est Pt Level 4 (47460) Diagnoses Cirrhosis of liver K74.60
[2024-09-14 11:44] VITALS: BP 132/63; PULSE 69; BMI 30.7
--- OUTSIDE RECORDS SUMMARY | 2024-09-14 13:25 | XMS_ITS | Encounter Summary ---
Author Organization [employer] Address [address] [place] [address] [address] [place] [address] Care Team Providers Care Cover Creaser Name Role Phone Sudha Mitchell Primary Care Provider [phone] Everett Rojas MD Unavailable [phone] Reason for Visit * Reason Comments Med Refill Encounter Details Date Type Department Care Team (Late st Contact Info) Description 06/22/2022 Refill [facility] MEDICINE [address] [place] [phone] Sudha Mitchell ANP [address] [place] [address] Lumbago of lumbar region with sciatica Social [...] Description 10/06/2024 11:00 AM EDT Office Visit [address] [address] Sudha Mitchell ANP [address] [place] [address] 10/23/2024 9:00 AM EDT Clinical Support [facility] MEDICINE [address] [place] [address] [phone] Nichole Lucio RN [address] [place] [address] documented as of this encounter Visit Diagnoses Diagnosis Lumbago of lumbar region with sciatica documented in this encounter Care Teams Cover Creaser Relationship Specialty Start Date End Date Sudha Mitchell ANP [address] [place] [id number] PCP - General Family Medicine 09/29/19 Everett Rojas MD [address] [place] [address] [address] [place] [address] Cardiology 04/21/24 documented as of this encounter
--- OUTSIDE RECORDS SUMMARY | 2024-09-14 13:25 | XMS_ITS | Encounter Summary ---
Author Organization [employer] Address [address] [place] [address] [address] [place] [address] Care Team Providers Care Marine Steamfitter Name Role Phone Sudha Mitchell Primary Care Provider [phone] Everett Rojas MD Unavailable [phone] Reason for Visit * Reason Onset Date Comments Med Refill 11/23/2022 Encounter Details Date Type Department Care Team (Late st Contact Info) Description 11/23/2022 Telephone [facility] MEDICINE [address] [place], [place] [phone] Sudha Mitchell ANP [address] [place] [address] Med Refill Social History Tobacco Use Types [...] Description 10/06/2024 11:00 AM EDT Office Visit [address] [address] Sudha Mitchell ANP [address] [place] [address] 10/23/2024 9:00 AM EDT Clinical Support [address] [address] Nichole Lucio, MONAE [address] [place], [place] [phone] documented as of this encounter Visit Diagnoses Not on filedocumented in this encounter Care Teams Marine Steamfitter Relationship Specialty Start Date End Date Sudha Mitchell ANP [address] [place] [phone] PCP - General Family Medicine 09/29/19 Everett Rojas MD [address] [place] [address] Drive [address] [place] [address] Cardiology 04/21/24 documented as of this encounter
--- OUTSIDE RECORDS SUMMARY | 2024-09-14 13:25 | XMS_ITS | Clinical Summary ---
Author Organization [employer] Address [address] [facility] [address] [place] [address] Care Team Providers Care Manager Education Name Role Phone Trujillo Tom WEI Primary Care Provider Everett Rojas MD Unavailable [phone] Allergies Active Allergy Reactions Criticality Noted Date [...] after use. 2 each 1 023 Active triamcinolone (Kenalog) 0.1 % creamIndication s:Venous [...] 125 mcg by mouth Once per day. Active Eliquis 5 MG tablet TAKE 1 [...] AT BEDTIME 90 tablet 3 025 Active Mometasone Furoate (Asmanex HFA) 100 MCG/ACT aerosol INHALE 1 PUFF BY MOUTH TWICE DAILY RINSE MOUTH AFTER USING. 13 g 5 025 Active Mometasone Furoate (Asmanex HFA) 100 MCG/ACT aerosol INHALE 1 PUFF TWICE DAILY. RINSE MOUTH AFTER USING 13 g 5 024 2024 Discontinued Active Problems Problem Noted [...] 04/16/2023 Overview (04/16/2023): EGD repeat due 05/2023 [facility] History of Helicobacter pylori infection 023 Overview (04/16/2023): tx'd 10/2021 via [facility] Cirrhosis of liver without ascites 04/16/2023 Overview (04/16/2023): compensated. thought to be d/t CARTWRIGHT vs. HCV. Follows w/ [facility] and had abd MRI to eval liver lesion 07/2022. 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 11/19/2022 Overview (11/19/2022): MRI 01/01/2022 findings copied into 09/18/22 note for reference Thrombocytopenia 03/20/2018 Trigger finger of both hands 03/20/2018 Neoplasm of liver 11/10/2017 Paroxysmal atrial fibrillation 02/07/2016 Atherosclerosis of [place] co ronary artery of [place] heart with stable angina pectoris 11/25/2015 Benign essential hypertension 11/25/2015 Chronic hepatitis C 11/25/2015 Moderate persistent asthma 11/25/2015 Encounters Date Type Department Care Team Description 09/10/2024 Refill [facility] MED & PEDS [address] [place] [address] Tom Trujillo ANP 09/07/2024 Orders Only [facility] External Provider, [facility] 08/11/2024 Telephone [facility] MEDICINE [address] [place] [phone] Tom Trujillo ANP Durable Medical Equipment (cane) 08/05/2024 Telephone [facility] MEDICINE [address] [place] [phone] Tom Trujillo ANP 08/04/[address] [address] Tom Trujillo ANP 07/31/2024 8:30 AM EDT Clinical Support [address] [address] Nichole Lucio RN 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ciatica (Primary Dx); Long-term current use of opiate analgesic 07/31/2024 Refill [facility] MED & PEDS [address] [place] [address] Tom Trujillo ANP Lumbago of lumbar region with sciatica 07/31/2024 Travel 07/22/2024 Outside Procedure [facility] OPTOMETRY [address] [place] [address] Magen, Modesta, OD Presbyopia of both eyes (Primary Dx) 07/20/2024 10:15 AM EDT Office Visit [facility] OPTOMETRY [address] [place] [address] Magen, Modesta, OD Hyperopia of both eyes (Primary Dx) 07/06/2024 2:15 PM EST Office Visit [facility] MEDICINE [address] [place] [phone] Tom Trujillo ANP Paroxysmal atrial fibrillation (CMS/HCC) (Primary Dx); Arthritis of right knee; Healthcare maintenance; Thrombocytopenia ([facility]) 07/06/2024 Travel 06/30/2024 Telephone [facility] MEDICINE [address] [place], [place] [phone] Barbie Munroe MA chart prep 06/18/2024 Patient Outreach [facility] MEDICINE [address] [place] [address] Tom Trujillo ANP Pre-visit Planning (SDOH Screening negative and Tobacco screening negative) from Last 3 [...] 10/06/2024 11:00 AM EDT Office Visit [facility] MEDICINE [address] [place] [address] Tom Trujillo ANP [address] [place] [address] 10/23/2024 9:00 AM EDT Clinical Support [address] [address] Nichole Lucio, MONAE [address] [place] [address] Health Maintenance Due Date Last Done Comments [...] Procedure Name Priority Date/Time Associated Diagnosis Comments MR ABDOMEN W AND WO CONTRAST Routine 09/07/2024 10:23 AM EDT CBC WITH AUTO DIFFERENTIAL Routine 07/31/2024 9:00 [...] AUTO DIFFERENTIAL Routine 07/06/2024 12:41 PM EST LIPID PANEL, STANDARD Routine 09/16/2023 9:41 AM EDT Atherosclerosis of [place] coronary artery of [place] heart with stable angina pectoris (CMS/HCC) BI MAMMOGRAM SCREENING TOMOSYNTHESIS BILATERAL Routine 04/22/2023 3:15 PM EST HM COLONOSCOPY Routine 10/10/2021 from Last 3 Months or Most Recently Relevant to Health Maintenance Results * MR Abdomen w/ and w/o Contrast (09/07/2024 10:23 AM EDT) Anatomical Region Laterality Modality Abdomen Magnetic Resonan ce 09/07/2024 10:2 3 AM EDT Narrative 09/09/2024 11:06 AM EDT ? [facility] ?[address] ?[place] [address] ? Magnetic Resonance Report ? Signed with Addenda ? Patient: Rudolph Walt Torres ?MR ?? #: [id number] ? : 1955 ?Acct:[id number] ? Age/Sex: 69 / F ?ADM Date: 09/07/24 ? Loc: HO.MRI ? Attending Dr: Darius Tamayo MD ? Ordering Physician: Darius Tamayo MD ?? Date of Service: 09/07/24 ?? Procedure(s): MR abdomen wo/w con ?? Accession Number(s): [id number] ? cc: Darius Tamayo MD; TOM TRUJILLO NP ?ADDENDUM ? ADDENDUM #1 ? Text message acknowledged by Dr. Tamayo on 09/09/2024 at 11:05 AM. ? Electronically signed by: ??Atul Mejía MD ??09/09/2024 11:06 AM EDT ?? RP ? Addendum Dictated By: ?Atul Mejía MD ? Addendum Signed By: ? <Electronically signed by Atul Mejía MD in OV> ?09/09/24 1106 ?? Addendum Cosigned By: ? DD/ ? TD/TT: 09/07 ? EXAMINATION: ??MRI Abdomen without and with contrast ? HISTORY: K74.60 - Unspecified cirrhosis of liver ? COMPARISON: ??There are comparison is made with the prior examination ?? dated 07/30/2022. ? TECHNIQUE: Axial in and out of phase T1-weighted gradient echo, axial ?? diffusion weighted, and axial and coronal HASTE T2 with fat saturation ?? images were obtained through the abdomen. Subsequently, fat suppressed ?? axial and coronal T1-weighted images were obtained after the ?? intravenous administration of 7.5 mL Gadavist. ? FINDINGS: ??There is heterogeneous loss of signal intensity within the ?? liver on opposed phase imaging, consistent with steatosis. The liver ?? demonstrates a nodular contour, consistent with cirrhosis. There is ?? hypertrophy of the left lobe. The hepatic and portal veins are patent. ?? There is no intra or extrahepatic biliary ductal dilatation. There are ?? areas of interest within the liver as described below: ? Lesion #: 1 ?? Location: segment VIII ?? Size: 2.4 cm ?? T2 signal intensity: Heterogeneously hyperintense ?? Arterial Phase Hyperenhancement (APHE): yes ?? Additional Major Features ?? Enhancing Capsule: no ?? Nonperipheral washout: yes ?? Threshold Growth: yes, previously 1.3 cm ?? LI-RADS Category: LR-5 Definitely HCC ? Lesion #: 2 ?? Location: segment I ?? Size: 2.4 cm ?? T2 signal intensity: Mildly hyperintense ?? Arterial Phase Hyperenhancement (APHE): yes ?? Additional Major Features ?? Enhancing Capsule: yes ?? Nonperipheral washout: yes ?? Threshold Growth: yes, new lesion ?? LI-RADS Category: LR-5 Definitely HCC ? There is cholelithiasis. The pancreas and adrenal glands are ?? unremarkable. Again seen is an 8 mm T2 hyperintense lesion in the ?? spleen without change. There is a 1.1 cm left renal cyst. The right ?? kidney is unremarkable. No retroperitoneal lymphadenopathy or ascites ?? is identified in the upper abdomen. There is degenerative disc disease ?? of the spine. ? MR/MR abdomen wo/w con ?? IMPRESSION: ? 1. Hepatic cirrhosis. Masses are identified in segments VIII and I ?? within the liver as described above, compatible with hepatocellular ?? carcinoma. Findings were sent via secure text message to Dr. Pelletier on on ?? 09/09/2024 at 11:05 AM. ? 2. Cholelithiasis. ? Electronically signed by: ??Atul Mejía MD ??09/09/2024 11:03 AM EDT ?? RP ? Dictated By: ?Atul Mejía MD ? Signed By: ?<Electronically signed by Atul Mejía MD in OV> ?09/09/24 1103 ? DD/ 1023 ? TD/TT: 09/07/241114 ? Early Learning Teacher: ? Procedure Note Donotuseinterpreter, Image - 09/09/2024 [place] [id number] Magnetic Resonance Report Signed with Addenda Patient: Sid RajanR #: [id number] : 4Acct:[id number] Age/Sex: 69 / FADM Date: 09/07/24 Loc: HO.MRI Attending Dr: Darius Tamayo MD Ordering Physician: Darius Tamayo MD Date of Service: 09/07/24 Procedure(s): MR abdomen wo/w con Accession Number(s): [id number] cc: Darius Tamayo MD; TOM TRUJILLO NP ADDENDUM ADDENDUM #[address] Tamayo on 09/09/2024 at 11:05 AM. Electronically signed by: Atul Mejía MD 09/09/2024 11:06 AM EDT Addendum Dictated By: Atul Mejía MD Addendum Signed By: <Electronically signed by MD [place] in OV> 09/09/24 1106 Addendum Cosigned By: DD/ TD/TT: 09/07/24 EXAMINATION: MRI Abdomen without and with contrast HISTORY: K74.60 - Unspecified cirrhosis of liver COMPARISON: There are comparison is made with the prior examination dated 07/30/2022. TECHNIQUE: Axial in and out of phase T1-weighted gradient echo, axial diffusion weighted, and axial and coronal HASTE T2 with fat saturation images were obtained through the abdomen. Subsequently, fat suppressed axial and coronal T1-weighted images were obtained after the intravenous administration of 7.5 mL Gadavist. FINDINGS: There is heterogeneous loss of signal intensity within the liver on opposed phase imaging, consistent with steatosis. The liver demonstrates a nodular contour, consistent with cirrhosis. There is hypertrophy of the left lobe. The hepatic and portal veins are patent. There is no intra or extrahepatic biliary ductal dilatation. There are areas of interest within the liver as described below: Lesion #: 1 Location: segment VIII Size: 2.4 cm T2 signal intensity: Heterogeneously hyperintense Arterial Phase Hyperenhancement (APHE): yes Additional Major Features Enhancing Capsule: no Nonperipheral washout: yes Threshold Growth: yes, previously 1.3 cm LI-RADS Category: LR-5 Definitely HCC Lesion #: 2 Location: segment I Size: 2.4 cm T2 signal intensity: Mildly hyperintense Arterial Phase Hyperenhancement (APHE): yes Additional Major Features Enhancing Capsule: yes Nonperipheral washout: yes Threshold Growth: yes, new lesion LI-RADS Category: LR-5 Definitely HCC There is cholelithiasis. The pancreas and adrenal glands are unremarkable. Again seen is an 8 mm T2 hyperintense lesion in the spleen without change. There is a 1.1 cm left renal cyst. The right kidney is unremarkable. No retroperitoneal lymphadenopathy or ascites is identified in the upper abdomen. There is degenerative disc disease of the spine. MR/MR abdomen wo/w con IMPRESSION: 1. Hepatic cirrhosis. Masses are identified in segments VIII and I within the liver as described above, compatible with hepatocellular carcinoma. Findings were sent via secure text message to Dr. Pelletier on on 09/09/2024 at 11:05 AM. 2. Cholelithiasis. Electronically signed by: Atul Mejía MD 09/09/2024 11:03 AM EDT Dictated By: Atul Mejía MD Signed By: <Electronically signed by Atul Mejía MD in OV> 09/09/24 1103 DD/ 1023 TD/TT: 09/07/24 1115 Early Learning Teacher: [facility] External Provider IMG MRI PROCEDURES Edited Result - Final * (ABNORMAL) CBC auto differential (07/31/2024 9:00 AM EDT) Only the most recent of2 resultswithin the time period is included. White Blood Count 4.2(L) 4.8 - 10.8 X10*3/uL [facility] Red Blood Count 4.26 4.20 - 5.50 X10*6/uL [facility] Hemoglobin 12.8 12.0 - 16.0 g/dl [facility] Hematocrit 39.4 37.0 - 47.0 % [facility] Mean Corpuscular Volume 92.5 80.0 - 98.0 fL [facility] Mean Corpuscular Hemoglobin 30.0 27.0 - 33.0 pg [facility] Mean Corpuscular HGB Conc 32.5 31.0 - 35.0 g/dl [facility] Red Cell Distribution Width 14.4 11.0 - 16.0 % [facility] Platelet Count 139(L) 160 - 400 X10*3/uL [facility] Mean Platelet Volume 10.6 9.4 - 12.3 fL [facility] Neutrophils Percent Auto 64.4 45 - 73 % [facility] Imm Gran Pct Auto 0.2 0.0 - 0.4 % [facility] Lymphocytes Percent Auto 22.1 20 - 40 % [facility] Monocytes Percent Auto 10.6 2 - 11 % [facility] Eosinophils Percent Auto 2.2 0 - 4 % [facility] Basophils Percent Auto 0.5 0 - 2 % [facility] NRBC Pct Auto 0.0 0.0 - 0.2 /100WBC [facility] Neutrophils Absolute Auto 2.7 2.0 - 8.3 x10*3/uL [facility] Imm Gran Abs Auto 0.01 0.00 - 0.03 X10*3/uL [facility] Lymphocytes Absolute Auto 0.9(L) 1.2 - 4.9 X10*3/uL [facility] Monocytes Absolute Auto 0.4 0.1 - 1.2 X10*3/uL [facility] Eosinophils Absolute Auto 0.1 0.0 - 0.4 X10*3/uL [facility] Basophils Absolute Auto 0.0 0.0 - 0.2 X10*3/uL [facility] NRBC Abs Auto 0.000 0.0 - 0.012 X10*3/uL [facility] Blood Venous blood specimen / Unknown 07/31/2024 9:00 AM EDT 07/31/2024 11:07 AM EDT Tom Trujillo ANP LAB BLOOD ORDERABLES Final Resul t Performing Organization Address City/[facility] Co de Phone Number [facility] [address] [place] [phone] * Hepatitis B surface antigen, EIA (07/31/2024 9:00 AM EDT) Pathologist [facility] Hepatitis B Surface Ag Negative Negative [facility] Blood Venous blood specimen / Unknown 07/31/2024 9:00 AM EDT 07/31/2024 11:07 AM EDT Tom Trujillo [facility] LAB BLOOD ORDERABLES Final Resul t Performing Organization Address [facility] de Phone Number [facility] [address] [place] [phone] * Hepatitis B Core Antibody, Total (07/31/2024 9:00 AM EDT) Pathologist [facility] Hepatitis B Core Antibody Nonreactive Nonreactive [facility] Blood Venous blood specimen / Unknown 07/31/2024 9:00 AM EDT 07/31/2024 11:07 AM EDT Tom Trujillo ANP LAB BLOOD ORDERABLES Final Resul t Performing Organization Address [facility] de Phone Number [facility] [address] [place] [phone] * Hepatitis B Surface Antibody, Qualitative (07/31/2024 9:00 AM EDT) Pathologist [facility] ~Hepatitis B Surface Antibody REACTIVE Nonreactive [facility] Comment:REACTIVE: > 11.99 mI U/mL Blood Venous blood specimen / Unknown 07/31/2024 9:00 AM EDT 07/31/2024 11:07 AM EDT Tom WEI LAB BLOOD ORDERABLES Final Resul t [facility] [address] [place] [phone] * POCT KRISHAN-14 Urine Drug Screen (07/31/2024 8:56 AM EDT) Urine Urine specimen obtained by clean catch procedure / Unknown 07/31/2024 8:56 AM EDT Narrative Nichole Lucio RN - 07/31/2024 8:56 AM EDT .UTOX cup Lot#[id number] Exp. 12/30/25 Internal Pass Control negative AMP, BAR, BUP, BZO, LILIYA, FTY, MDMA, MET, MOP, MTD, OXY, PCP, TCA, THC. Tom Trujillo [facility] POINT OF CARE TEST ENTER/EDIT OR DERABLES Final Result * Vitamin D, 25-Hydroxy, Total, Immunoassay (07/06/2024 12:41 PM EST) Vitamin D 25-OH Total 64.7 >30 ng/mL [facility] Comment:Health Based Referen ce Values*< 20 ng/mL Nayuifcue51-33 ng/mL Insufficient> 30 ng/mL Sufficient*Yulissa MCGRATH. N [...] ORDERAB LES Final Result Performing Organization Address [facility] Co de Phone Number [facility] [address] [place] [phone] * (ABNORMAL) Zinc (07/06/2024 12:41 PM EST) Zinc 53(A) 60 - 130 mcg/dL [facility] Comment:This test was develo ped and its analytical performancecharacteristics have been determined by [employer] [place], [place]. It hasnot been cleared or approved by the U.S. Food and DrugAdministration. This assay has been validated pursuantto the CLIA regulations and is used for clinicalpurposes.THIS TEST WAS PERFORMED AT:[employer] [place] [address]PSEJNIEMYLES GRACE MD,PHD 07/06/2024 12:4 1 PM EST 07/06/2024 12:46 PM EST Generic External Data Provider LAB BLOOD ORDERAB LES Final Result Performing Organization Address [facility] de Phone Number [facility] [address] [place] [phone] * (ABNORMAL) Prothrombin Time-INR (07/06/2024 12:41 PM EST) Prothrombin Time 17.8(H) 10.9 - 12.4 SEC [facility] INTERNATIONAL NORM RATIO 1.5(H) 0.9 - 1.1 [facility] Comment:INTERNATIONAL NORMAL IZED RATIO (INR) [...] Provider LAB BLOOD ORDERAB LES Final Result [facility] [address] [place] [phone] * (ABNORMAL) Comprehensive Metabolic Panel (07/06/2024 12:41 PM EST) Sodium 144 135 - 145 mmol/L [facility] Potassium 3.8 3.3 - 5.1 mmol/L [facility] Chloride 107 96 - 108 mmol/L [facility] Carbon Dioxide 30(H) 22 - 29 mmol/L [facility] Anion Gap 11(L) 12 - 20 [facility] Urea Nitrogen (BUN) 19(H) 9 - 16 mg/dL [facility] Creatinine, Serum 0.77 0.5 - 1.4 mg/dL [facility] Estimated Glomerular Filt Rate >60 [facility] Comment:Chronic Kidney Disea se: Estimated GFR < 60 mL/min/1.48y1Obqjwm Kidney Disease: Estimated GFR < 15 mL/min/1.73m2 Glucose 97 60 - 115 mg/dL [facility] Calcium 9.6 8.4 - 10.2 mg/dL [facility] Bilirubin, Total 0.8 0.0 - 1.0 mg/dL [facility] Aspartate Amino Transferase 40(H) 5 - 31 U/L [facility] Alanine Aminotransferase 39(H) 0 - 31 U/L [facility] Total Protein 7.7 6.5 - 8.0 g/dL [facility] Albumin Level 3.6 3.5 - 5.0 g/dL [facility] Alkaline Phosphatase 47 39 - 117 U/L [facility] 07/06/2024 12:4 1 PM EST 07/06/2024 12:46 PM EST us Generic External Data Provider LAB BLOOD ORDERAB LES Final Result Performing Organization Address City/[facility]/ZIP Co de Phone Number [facility] [address] [place] [phone] * (ABNORMAL) Lipid Panel, Standard (09/16/2023 9:41 AM EDT) Triglycerides 64 <150 mg/dL [facility] Comment:Desirable Triglyceri de: less than 150 mg/dLBorderline High Triglyceride 150-199 mg/dLHigh Triglyceride: 200-499 mg/dLVery High Triglyceride: greater than or equal to 5OO mg/dL Cholesterol 189 <200 mg/dL [facility] Comment:Desirable Cholestero l: less than 200 mg/dLBorderline High Cholesterol: 200-239 mg/dLHigh Cholesterol: greater than 239 mg/dL LDL Cholesterol Calculated 131(H) <100 mg/dL [facility] Comment:Desirable LDL: less than 100 mg/dLNear Optimal/Above Optimal LDL: 110- 129 mg/dLBorderline High LDL: 130-159 mg/dLHigh LDL: 160-189 mg/dLVery High LDL: greater than or equal to 190 mg/dL HDL Cholesterol 46 >40 mg/dL [facility] Comment:Desirable HDL: great er than 40 mg/dL Note: This HDL assay may give artificially low results in patients with liver disease. Blood Venous blood specimen / Unknown 09/16/2023 9:41 AM EDT 09/16/2023 9:41 AM EDT us [facility] LAB BLOOD ORDERABLES Final Resul t [facility] [address] [place] [phone] * BI Mammogram Screening Tomosynthesis Bilateral (04/22/2023 3:15 PM EST) Anatomical Region Laterality Modality Breast Bilateral Mammography 04/22/2023 3:15 PM EST Narrative 05/07/2023 8:31 PM EST ? [facility] ? [address] ?[place] [address] ? Mammography Report ? Signed ? Patient: Rudolph Torres,Virgenmina ?MR ?? #: [id number] ? : 1955 ?Acct:[id number] ? Age/Sex: 67 / F ?ADM Date: 04/22/23 ? Loc: HO.MAMMO ? Attending Dr: Tom Trujillo MEAT GRADING MACHINE OPERATOR ? Ordering Physician: TOM TRUJILLO NP ?Results: 1Negative ? Date of Service: 04/22/23 ?Follow Up: 1 Year From Orig ?? inal Mammogram ? Procedure(s): MM tomosynthesis screening BI ?? Accession Number(s): [id number] ? cc: TOM TRUJILLO NP ? EXAMINATION: [...] 05/07/232026 ? DD/ 1515 ? TD/TT: ? Early Learning Teacher: ? Procedure Note Donotuseinterpreter, Image - 05/07/2023 [facility] [address] [place] [address] Mammography Report Signed Patient: Sid RajanR #: [id number] : 1955cct:[id number] Age/Sex: 67 / FADM Date: 04/22/23 Loc: LEE Attending Dr: Tom Trujillo NP Ordering Physician: TOM TRUJILLOesults: 1Negative Date of Service: 04/22/23Follow Up: 1 Year From Orig inal Mammogram Procedure(s): MM tomosynthesis screening BI Accession Number(s): [id number] cc: TOM TRUJILLO NP EXAMINATION: MM SCREENING [...] Jennifer Be MD in OV> 05/07/232026 DD/ TD/TT: Early Learning Teacher: Tom Trujillo ANP IMG BI PROCEDURES Final Result * Hm Colonoscopy (10/10/2021) Colonoscopy Normal Normal Historical Provider HEALTH MAINTENANCE Final Result from Last 3 Months or Most Recently Relevant to Health Maintenance Insurance [facility] Care Teams Manager Education Relationship Specialty Start Date End Date Tom Trujillo ANP [address] [place] [address] PCP - General Family Medicine 09/29/19 Everett Rojas MD [address]rd [place] [address] Cardiology 04/21/24
--- OUTSIDE RECORDS SUMMARY | 2024-09-14 13:25 | XMS_ITS | Encounter Summary ---
Author Organization [employer] Address [address] [place] [address] [address] [place] [address] Care Team Providers Care Photography Intern Name Role Phone Sudha Mitchell Primary Care Provider [phone] Everett Rojas MD Unavailable Reason for Visit * Reason Comments Med Refill Encounter Details Date Type Department Care Team (Late st Contact Info) Description 08/14/2022 Refill [facility] MED[facility] [address] [place] [phone] [place] Nancy [facility] [address] [place] [address] Lumbago of lumbar region with sciatica Social [...] Office Visit [facility] MED[facility] [address] [place] [phone] Sudha Mitchell ANP [address] [place] [address] 10/23/2024 9:00 AM EDT Clinical Support [facility] [address] [place] [phone] Nichole Lucio, RN [address] [place] [address] documented as of this encounter Visit Diagnoses Diagnosis Lumbago of lumbar region with sciatica documented in this encounter Care Teams Photography Intern Relationship Specialty Start Date End Date Sudha Mitchell ANP [address] [place] [phone] PCP - General Family Medicine 09/29/19 Everett Rojas MD [address] [place] [address] 3rd [place] [address] Cardiology 04/21/24 documented as of this encounter
--- OUTSIDE RECORDS SUMMARY | 2024-09-14 13:26 | XMS_ITS | Encounter Summary ---
Author Organization [employer] Address 75 [facility] 7t [place] [address] Care Team Providers Care Frame Carver Spindle Name Role Phone Sudha Mitchell Primary Care Provider [phone] Everett Rojas MD Unavailable [phone] Reason for Visit * Reason Onset Date Comments Pre-op Visit 12/20/2023 Encounter Details Date Type Department Care Team ([facility] st Contact Info) Description 12/20/2023 Telephone [facility] MEDICINE 230 [place], [place] [phone] Sudha Mitchell ANP 230 [place] [address] Pre-op Visit Social History Tobacco Use Types [...] [facility] Surgeon's office number: [phone] Ext [phone] Surgeon's office fax number: [phone] Contact name: Mara Last office note from surgeon requested: Yes documented in this encounter Plan of Treatment Upcoming Encounters Date Type Department Care Team ([facility] st Contact Info) Description 10/06/2024 11:00 AM EDT Office Visit [facility] MEDICINE [address] [place] [address] Sudha Mitchell ANP 230 [place] [address] 10/23/2024 9:00 AM EDT Clinical Support [facility] MEDICINE [address] [place] [address] Nichole Lucio, RN 505 [place] [address] documented as of this encounter Visit Diagnoses Not on filedocumented in this encounter Care Teams Frame Carver Spindle Relationship Specialty Start Date End Date Sudha Mitchell ANP [address] [place] [address] PCP - General Family Medicine 09/29/19 Everett Rojas MD [address] [place] [address] 3rd [place] [address] Cardiology 04/21/24 documented as of this encounter
--- OUTSIDE RECORDS SUMMARY | 2024-09-14 13:26 | XMS_ITS | Encounter Summary ---
Author Organization [employer] Address [address] [place] [address] 7t [place] [address] Care Team Providers Care Gift Officer Name Role Phone Sudha Mitchell Primary Care Provider [phone] Everett Rojas MD Unavailable [phone] Reason for Visit * Reason Comments Med Refill Encounter Details Date Type Department Care Team (Late st Contact Info) Description 05/02/2022 Refill [facility] MED & PEDS 505 [place], [place] [phone] Sudha Mitchell ANP 230 [place] [address] Cervicalgia Social History Tobacco Use Types Packs/Day [...] Description 10/06/2024 11:00 AM EDT Office Visit [facility] MEDICINE [address] [place] [address] Sudha Mitchell ANP 230 [place] [address] 10/23/2024 9:00 AM EDT Clinical Support [facility] MEDICINE [address] [place] [address] Nichole Lucio RN 505 [place] [address] documented as of this encounter Visit Diagnoses Diagnosis Cervicalgia documented in this encounter Care Teams Gift Officer Relationship Specialty Start Date End Date Sudha Mitchell ANP [address] [place] [address] PCP - General Family Medicine 09/29/19 Everett Rojas MD [address] [place] [address] 3rd [place] [address] Cardiology 04/21/24 documented as of this encounter
--- OUTSIDE RECORDS SUMMARY | 2024-09-14 13:26 | XMS_ITS | Encounter Summary ---
Author Organization [employer] Address [address] [place] [address] 7t [place] [address] Care Team Providers Care Sample Cutter Name Role Phone Sudha Mitchell Primary Care Provider [phone] Everett Rojas MD Unavailable [phone] Reason for Visit * Reason Comments Med Refill Encounter Details Date Type Department Care Team (Late st Contact Info) Description 01/22/2023 Refill [facility] MEDICINE [address] [place] [address] [phone] Sudha Mitchell ANP 230 [place], [place] [phone] Lumbago of lumbar region with sciatica Social [...] Office Visit [facility] MEDICINE [address] [place] [address] [phone] Sudha Mitchell ANP 230 [place], [place] [phone] 10/23/2024 9:00 AM EDT Clinical Support [facility] MEDICINE 230 [place] [address] Nichole Lucio, MONAE [address] [place] [address] documented as of this encounter Visit Diagnoses Diagnosis Lumbago of lumbar region with sciatica documented in this encounter Care Teams Sample Cutter Relationship Specialty Start Date End Date Sudha Mitchell ANP 230 [place] [address] PCP - General Family Medicine 09/29/19 Everett Rojas MD [address] [place] [address] 3rd [place] [address] Cardiology 04/21/24 documented as of this encounter
--- OUTSIDE RECORDS SUMMARY | 2024-09-14 13:26 | XMS_ITS | Encounter Summary ---
Author Organization [employer] Address 75 [facility] 7t [place] [address] Care Team Providers Care Dry Chain Operator Name Role Phone Sudha Mitchell Primary Care Provider [phone] Everett Rojas MD Unavailable [phone] Reason for Visit * Reason Comments Med Refill Encounter Details Date Type Department Care Team (Late st Contact Info) Description 02/20/2024 Refill [facility] [address] [place], [place] [phone] Sudha Mitchell ANP [address] [place] [address] Lumbago of lumbar region with sciatica Social History Tobacco Use Types Packs/Day Years Used Date Smoking Tobacco: Never Smokeless Tobacco: Never Alcohol Use Standard Drinks/Week Comments Never 0 (1 standard drink = 0.6 oz pur e alcohol) Housing Stability Answer Date Recorded What is your housing situation today? I have shahsa tejada 01/16/[address] you [...] Description 10/06/2024 11:00 AM EDT Office Visit [facility] MEDICINE [address] [place] [address] Sudha Mitchell ANP [address] [place] [address] 10/23/2024 9:00 AM EDT Clinical Support [facility] MEDICINE [address] [place] [address] Nichole Lucio, MONAE 505 [place] [address] documented as of this encounter Visit Diagnoses Diagnosis Lumbago of lumbar region with sciatica documented in this encounter Care Teams Dry Chain Operator Relationship Specialty Start Date End Date Sudha Mitchell ANP [address] [place] [address] PCP - General Family Medicine 09/29/19 Everett Rojas MD [address] 3rd [place] [address] Cardiology 04/21/24 documented as of this encounter
--- OUTSIDE RECORDS SUMMARY | 2024-09-14 13:26 | XMS_ITS | Encounter Summary ---
Author Organization [employer] Address 75 [facility] 7t [place] [address] Care Team Providers Care Hair Spring Cutter Name Role Phone Sudha Mitchell Primary Care Provider [phone] Everett Rojas MD Unavailable [phone] Reason for Visit * Reason Comments Med Refill Encounter Details Date Type Department Care Team ([facility] st Contact Info) Description 09/10/2024 Refill C [facility] [address] [place], [place] [phone] Sudha Mitchell ANP 230 [facility] [place] [address] Social History Tobacco Use Types Packs/Day Years [...] Description 10/06/2024 11:00 AM EDT Office Visit [address] [address] Sudha Mitchell ANP [address] [place] [address] 10/23/2024 9:00 AM EDT Clinical Support [address] [address] Nichole Lucio RN 505 [place] [address] documented as of this encounter Visit Diagnoses Not on filedocumented in this encounter Additional Health Concerns Assessment Noted Time PHQ-9 Depression Total Score: 7 07/06/19 25 3:18 PM EST documented as of this encounter Care Teams Hair Spring Cutter Relationship Specialty Start Date End Date Sudha Mitchell ANP [address] [place] [address] PCP - General Family Medicine 09/29/19 Everett Rojas MD [address] 3rd [place] [address] Cardiology 04/21/24 documented as of this encounter
--- OUTSIDE RECORDS SUMMARY | 2024-09-14 13:26 | XMS_ITS | Encounter Summary ---
Author Organization [employer] Address 75 [facility] 7t [place] [address] Care Team Providers Care Segment Block Layer Name Role Phone Sudha Mitchell Primary Care Provider [phone] Everett Rojas MD Unavailable [phone] Reason for Visit * Reason Comments Med Refill Encounter Details Date Type Department Care Team ([facility] st Contact Info) Description 10/18/2023 Refill [facility] MEDICINE 230 [place] [address] Sudha Mitchell ANP 230 [place] [address] Lumbago of lumbar region with sciatica Social [...] Description 10/06/2024 11:00 AM EDT Office Visit [address] [address] Sudha Mitchell ANP [address] [place] [address] 10/23/2024 9:00 AM EDT Clinical Support [address] [address] Nichole Lucio RN 505 [place] [address] documented as of this encounter Visit Diagnoses Diagnosis Lumbago of lumbar region with sciatica documented in this encounter Care Teams Segment Block Layer Relationship Specialty Start Date End Date Sudha Mitchell ANP [address] [place] [address] PCP - General Family Medicine 09/29/19 Everett Rojas MD [address] [place] [address] 3rd [place] [address] Cardiology 04/21/24 documented as of this encounter
--- OUTSIDE RECORDS SUMMARY | 2024-09-14 13:26 | XMS_ITS | Encounter Summary ---
Author Organization [employer] Address [address] 7t [place] [address] Care Team Providers Care Publicity Person Name Role Phone Stephen Tom WEI Primary Care Provider [phone] Everett Rojas MD Unavailable [phone] Encounter Details Date Type Department Care Team (Late st Contact Info) Description 09/07/2024 Orders Only [facility] External Provider, [facility] Social History Tobacco Use Types Packs/Day Years [...] Description 10/06/2024 11:00 AM EDT Office Visit [facility] MEDICINE [address] [place] [address] Tom Trujillo ANP 230 [place] [address] 10/23/2024 9:00 AM EDT Clinical Support [address] [address] Nichole Lucio, RN 505 [place], [place] [phone] documented as of this encounter Procedures Procedure Name Priority Date/Time Associated Diagnosis Comments MR ABDOMEN W AND WO CONTRAST Routine 09/07/2024 10:23 AM EDT documented in this encounter Results * MR Abdomen w/ and w/o Contrast (09/07/2024 10:23 AM EDT) Anatomical Region Laterality Modality Abdomen Magnetic Resonan ce 09/07/2024 10:2 3 AM EDT Narrative 09/09/2024 11:06 AM EDT ? [facility] ?[address] ?[place] [address] ? Magnetic Resonance Report ? Signed with Addenda ? Patient: Rudolph Torres,Virgenmina ?MR ?? #: [id number] ? : 1955 ?Acct:[id number] ? Age/Sex: 69 / F ?ADM Date: 04/28/25 ? Loc: HO.MRI ? Attending Dr: Darius Tamayo MD ? Ordering Physician: Darius Tamayo MD ?? Date of Service: 09/07/24 ?? Procedure(s): MR abdomen wo/w con ?? Accession Number(s): [id number] ? cc: Darius Tamayo MD; TOM TRUJILLO [...] Addendum Cosigned By: ? DD/ ? TD/TT: 09/07/24 ? EXAMINATION: ??MRI Abdomen without and with [...] ??Atul Mejía MD ??09/09/2024 11:03 AM EDT ? Dictated By: ?Atul Mejía MD ? Signed By: ?<Electronically signed by Atul Mejía MD in OV> ?09/09/24 1103 ? DD/ 1023 ? TD/TT: 09/07/24 1115 ? Brickmason Contractor: ? Procedure Note Laz, Image - 09/09/2024 [place] [address] Magnetic Resonance Report Signed with Riccienda Patient: Sid RajanR #: [id number] : 4Acct:[id number] Age/Sex: 69 / FADM Date: 09/07/24 Loc: HO.MRI Attending Dr: Darius Tamayo MD Ordering Physician: Darius Tamayo MD Date of Service: 09/07/24 Procedure(s): MR abdomen wo/w con Accession Number(s): [id number] cc: Darius Tamayo MD; TOM TRUJILLO NP [...] Atul Mejía MD 09/09/2024 11:03 AM EDT RP Dictated By: Atul Mejía MD Signed By: <Electronically signed by Atul Mejía MD in OV> 09/09/24 1103 DD/ 1023 TD/TT: 09/07/24 1115 Brickmason Contractor: [facility] External Provider IMG MRI PROCEDURES Edited Result - Final documented in this encounter Visit Diagnoses Not on filedocumented in this encounter Additional Health Concerns Assessment Noted Time PHQ-9 Depression Total Score: 7 07/06/19 25 3:18 PM EST documented as of this encounter Care Teams Publicity Person Relationship Specialty Start Date End Date Tom Trujillo ANP [address] [place] [address] PCP - General Family Medicine 09/29/19 Everett Rojas MD [address] [place] [address] 3rd [place] [address] Cardiology 04/21/24 documented as of this encounter
--- OUTSIDE RECORDS SUMMARY | 2024-09-14 13:26 | XMS_ITS | Encounter Summary ---
Author Organization [employer] Address 75 [facility] 7t [place] [address] Care Team Providers Care Leveler Helper Name Role Phone Sudha Mitchell Primary Care Provider Everett Rojas MD Unavailable [phone] Reason for Visit * Reason Comments Med Refill Encounter Details Date Type Department Care Team (Late st Contact Info) Description 03/23/2024 Refill [facility] CHC MED & PEDS [address] [place], [place] [phone] Sudha Mitchell ANP [address] [place] [address] Lumbago of lumbar region with sciatica Social [...] Description 10/06/2024 11:00 AM EDT Office Visit [facility] MEDICINE [address] [place] [address] Sudha Mitchell ANP [address] [place] [address] 10/23/2024 9:00 AM EDT Clinical Support [facility] MEDICINE [address] [place] [address] Nichole Lucio, MONAE 505 [place] [address] documented as of this encounter Visit Diagnoses Diagnosis Lumbago of lumbar region with sciatica documented in this encounter Care Teams Leveler Helper Relationship Specialty Start Date End Date Sudha Mitchell ANP [address] [place] [address] PCP - General Family Medicine 09/29/19 Everett Rojas MD [address] 3rd [place] [address] Cardiology 04/21/24 documented as of this encounter
--- OUTSIDE RECORDS SUMMARY | 2024-09-14 13:26 | XMS_ITS | Encounter Summary ---
Author Organization [employer] Address [address] [facility] [address] 7t [place] [address] Care Team Providers Care Tire Specialist Name Role Phone Sudha Mitchell Primary Care Provider [phone] Everett Rojas MD Unavailable [phone] Reason for Visit * Reason Comments Med Refill Encounter Details Date Type Department Care Team (Late st Contact Info) Description 09/18/2023 Refill C [facility] [address] [place], [place] [phone] Sudha Mitchell ANP [address] [place] [address] Lumbago of lumbar region with sciatica Social [...] Description 10/06/2024 11:00 AM EDT Office Visit [address] [address] Sudha Mitchell ANP [address] [place] [address] 10/23/2024 9:00 AM EDT Clinical Support [address] [address] Nichole Lucio, MONAE 505 [place] [address] documented as of this encounter Visit Diagnoses Diagnosis Lumbago of lumbar region with sciatica documented in this encounter Care Teams Tire Specialist Relationship Specialty Start Date End Date Sudha Mitchell ANP [address] [place] [address] PCP - General Family Medicine 09/29/19 Everett Rojas MD [address] [place] [address] 3rd [place] [address] Cardiology 04/21/24 documented as of this encounter
--- OUTSIDE RECORDS SUMMARY | 2024-09-14 13:26 | XMS_ITS | Encounter Summary ---
Author Organization [employer] Address 75 [facility] 7t [place] [address] Care Team Providers Care Auto Repair Technician Name Role Phone Stephen Sudha WEI Primary Care Provider [phone] Everett Rojas MD Unavailable [phone] Reason for Visit * Reason Comments Med Refill Encounter Details Date Type Department Care Team ([facility] st Contact Info) Description 12/30/2023 Refill [facility] MEDICINE 230 [place] [address] Fabi Boudreaux MD 230 [place] [address] Lumbago of lumbar region with sciatica Social [...] Description 10/06/2024 11:00 AM EDT Office Visit [address] [address] Sudha Mitchell ANP [address] [place] [address] 10/23/2024 9:00 AM EDT Clinical Support [address] [address] Nichole Lucio, MONAE 505 [place] [address] documented as of this encounter Visit Diagnoses Diagnosis Lumbago of lumbar region with sciatica documented in this encounter Care Teams Auto Repair Technician Relationship Specialty Start Date End Date Sudha Mitchell ANP [address] [place] [address] PCP - General Family Medicine 09/29/19 Everett Rojas MD [address] [place] [address] 3rd [place] [address] Cardiology 04/21/24 documented as of this encounter
== END 2024-09-14 12:00 | disposition home or self-care (01) ==
LOC: HO.HGI 11:37
PROVIDERS: PCP Nurse Practitioner Primary Care; Visit Provider Internal Medicine Gastroenterology
DX: K74.60 Unspecified cirrhosis of liver (principal)
CPT/HCPCS: 99214

== ENCOUNTER → 2024-09-14 11:37 | Outpatient (BNVA) | payer MEDICAID, SELFPAY | PROVIDERS: PCP Nurse Practitioner Primary Care; Visit Provider Internal Medicine Gastroenterology | DX: K74.60 Unspecified cirrhosis of liver (principal); K75.81 Nonalcoholic steatohepatitis (NASH) | CPT/HCPCS: 99212 ==

== ENCOUNTER 2024-10-22 08:04 | Outpatient (REF) | payer MEDICAID, SELFPAY ==
--- OUTSIDE RECORDS SUMMARY | 2024-10-22 08:09 | XMS_ITS | Encounter Summary ---
Author Organization [employer] Address [address] [place] [address] 7t [place] [address] Care Team Providers Care Marriage And Family Social Worker Name Role Phone Sudha Mitchell Primary Care Provider [phone] Everett Rojas MD Unavailable [phone] Reason for Visit * Reason Onset Date Comments Med Refill 11/23/2022 Encounter Details Date Type Department Care Team (Late st Contact Info) Description 11/23/2022 Telephone [facility] MEDICINE 230 [place] [address] Sudha Mitchell ANP [address] [place] [address] Med Refill Social History Tobacco Use Types [...] Department Care Team (Late Contact Info) Description 10/23/2024 9:00 AM EDT Clinical Support [address] [address] Nichole Lucio, MONAE 505 [place] [address] 11/12/2024 11:15 AM EDT Office Visit [address] [address] Sudha Mitchell ANP 230 [place] [address] documented as of this encounter Visit Diagnoses Not on filedocumented in this encounter Care Teams Marriage And Family Social Worker Relationship Specialty Start Date End Date Sudha Mitchell ANP [address] [place] [address] PCP - General Family Medicine 09/29/19 Everett Rojas MD [address] [place] [address] Drive 3rd [place] [address] Cardiology 04/21/24 documented as of this encounter
[2024-10-22 08:19] LABS: MANUAL DIFF FLAG NO
[2024-10-22 08:35] LABS: Basophils Percent Auto 0.5 % (0-2); Eosinophils Absolute Auto 0.1 X10*3/uL (0.0-0.4); Eosinophils Percent Auto 1.5 % (0-4); Hematocrit 36.2 % (37.0-47.0); Hemoglobin 12.1 g/dl (12.0-16.0); Imm Gran Abs Auto 0.01 X10*3/uL (0.00-0.03); Imm Gran Pct Auto 0.3 % (0.0-0.4); Lymphocytes Percent Auto 26.5 % (20-40); Mean Corpuscular HGB Conc 33.4 g/dl (31.0-35.0); Mean Corpuscular Hemoglobin 30.2 pg (27.0-33.0); Mean Corpuscular Volume 90.3 fL (80.0-98.0); Mean Platelet Volume 9.7 fL (9.4-12.3); Monocytes Absolute Auto 0.4 X10*3/uL (0.1-1.2); Monocytes Percent Auto 8.9 % (2-11); Neutrophils Absolute Auto 2.4 x10*3/uL (2.0-8.3); Neutrophils Percent Auto 62.3 % (45-73); Platelet Count 118 X10*3/uL (160-400); Red Blood Count 4.01 X10*6/uL (4.20-5.50); Red Cell Distribution Width 15.1 % (11.0-16.0); White Blood Count 3.9 X10*3/uL (4.8-10.8)
[2024-10-22 08:42] LABS: INTERNATIONAL NORM RATIO 1.5 (0.9-1.1); Prothrombin Time 16.8 SEC (10.9-12.4)
[2024-10-22 08:58] LABS: Alanine Aminotransferase 37 U/L (0-31); Albumin Level 3.8 g/dL (3.5-5.0); Alkaline Phosphatase 42 U/L (39-117); Anion Gap 12 (12-20); Aspartate Amino Transferase 34 U/L (5-31); Bilirubin Total 0.6 mg/dL (0.0-1.0); Blood Urea Nitrogen 23 mg/dL (9-16); Calcium 9.3 mg/dL (8.4-10.2); Carbon Dioxide 30 mmol/L (22-29); Chloride 104 mmol/L (96-108); Estimated Glomerular Filt Rate 54; Glucose Random 92 mg/dL (60-115); Sodium 142 mmol/L (135-145); Total Protein 7.1 g/dL (6.5-8.0)
[2024-10-24 14:34] LABS: HCV Log PCR <1.18 NOT DETECTED Log IU/mL (NOT DETECTED); HepC Viral Load <15 NOT DETECTED IU/mL (NOT DETECTED)
== END 2024-10-22 08:05 | disposition home or self-care (01) ==
LOC: HO.LAB 08:04
PROVIDERS: PCP Nurse Practitioner Primary Care; Visit Provider Internal Medicine Gastroenterology
DX: K75.81 Nonalcoholic steatohepatitis (NASH) (principal); K74.60 Unspecified cirrhosis of liver
CPT/HCPCS: 36415; 80053; 85025; 85610; 87522

== ENCOUNTER 2024-10-26 10:45 | Outpatient (AMB) | payer MEDICAID, SELFPAY ==
--- NOTE | 2024-10-26 10:47 | A.OFFVIS_ITS ---
Vital Signs 10/26/24 10:55 Height 4 ft 11 in Weight 154 lb 5.177 oz BMI 31.2 BP 140/57 H Blood Pressure Location Lt brachial Position Sitting Pulse 67 Intake Visit Reasons: 6w Intake Note: Walt presents in the office as a 6 week follow up. CC: States that she is not having any concerns and feeling okay! Cafe Or Restaurant Manager Required: No Allergies rivaroxaban [From XARELTO] Allergy (Intermediate, Verified 10/26/24 10:55) GI BLEEDING SEAFOOD Allergy (Intermediate, Uncoded 10/26/24 10:55) RASH HPI HPI 6w: Details: 69 y/o woman w/ HTN, asthma, p-A-fib presenting today for f/u for compensated cirrhosis. RECAP: Had been seeing Dr austin for cirrhosis, presumed due to CARTWRIGHT or prior Hep C (treated 2015) never been heavy drinker she got the covid vaccine MELD 9 in the past Hep C serology pos but PCR was negative MRI 07/2021- cirrhosis, gallstones EGD/colonoscopy-09/2021- x 1 varix noted, H pylori pos and treated with levo, amoxil and pantoprazole, TA removed EGD: 12/03-- flat varix MRI: x 2 lesions seg I and VIII - both 2.4 cm INTERIM: she is well, no complaints no abdominal pain no nausea or vomiting she has no confusion, memory is good no abdominal distention no melena or rectal bleeding she saw Dr gramajo and plan for TACE< she is also receptive to [facility] referral for possible liver transplant assessment EXAM: GENERAL: The patient is well developed and nontoxic. VITAL SIGNS:see workflow HEENT: Nonicteric sclerae, PERRLA, EOMI. Oropharynx clear. Moist mucous membranes. Conjunctivae appear well perfused. No thyroid mass. CHEST: Chest wall is nontender. HEART: Regular rate and rhythm without murmurs. LUNGS: Clear to auscultation bilaterally. ABDOMEN: Soft, positive bowel sounds, nontender, no organomegaly.no flank tenderness SKIN: No rash, no excessive bruising, petechiae, or purpura. NEUROLOGIC: Cranial nerves II-XII intact without motor/sensory deficit. A/P: 1. Cirrhosis, prob CARTWRIGHT related or from prior Hep C--MELD Na--8-9 range but higher now with potential exception points for HCC 2. hx of TA 3. H pylori s/p treatment--cured plan; 1/ HCV PCR neg 2/ refer [facility]< although 69 she is good functionally 3/ varices--repeat EGD, in 2-3 yr--- 4/ HE-no overt evidence 5/ ascites: no evidence of ascites on exam 6/ refer med onc as well, order Ct chest PFS Medical History (Updated 10/26/24 @ 11:26 by Darius Tamayo MD) Hemorrhage of gastrointestinal tract, unspecified PAF (paroxysmal atrial fibrillation) Tubular adenoma of colon Low vitamin D level Atrial fibrillation Cirrhosis of liver Asthma Hepatitis B Surgical History (Updated 09/14/24 @ 11:44 by LIANET Lee) Hx of cataract surgery History of eyelid surgery History of esophagogastroduodenoscopy (EGD) Hx of colonoscopy History of total abdominal hysterectomy and bilateral salpingo-oophorectomy History of 3 sections Family History Father No problems noted. Mother No problems noted. 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
[2024-10-26 10:55] VITALS: BP 140/57; PULSE 67; BMI 31.2
--- OUTSIDE RECORDS SUMMARY | 2024-10-26 12:05 | XMS_ITS | Encounter Summary ---
Author Organization [employer] Address [address] [place] [address] 7t [place] [address] Care Team Providers Care Spooling Supervisor Name Role Phone Sudha Mitchell Primary Care Provider [phone] Everett Rojas MD Unavailable [phone] Reason for Visit * Reason Onset Date Comments Med Refill 11/23/2022 Encounter Details Date Type Department Care Team (Late st Contact Info) Description 11/23/2022 Telephone [facility] MEDICINE 230 [place] [address] Sudha Mitchell ANP 230 [place] [address] Med Refill Social History Tobacco Use Types [...] Department Care Team (Late Contact Info) Description 11/06/2024 11:30 AM EDT Clinical Support [address] [address] Nichole Lucio, MONAE 505 [place] [address] 11/12/2024 11:15 AM EDT Office Visit [address] [address] Sudha Mitchell ANP 230 [place] [address] documented as of this encounter Visit Diagnoses Not on filedocumented in this encounter Care Teams Spooling Supervisor Relationship Specialty Start Date End Date Sudha Mitchell ANP [address] [place] [address] PCP - General Family Medicine 09/29/19 Everett Rojas MD [address] 3rd [place] [address] Cardiology 04/21/24 documented as of this encounter
== END 2024-10-26 11:33 | disposition home or self-care (01) ==
LOC: HO.HGI 10:46
PROVIDERS: PCP Nurse Practitioner Primary Care; Visit Provider Internal Medicine Gastroenterology
DX: C22.0 Liver cell carcinoma (principal)
CPT/HCPCS: 99214

== ENCOUNTER 2024-10-26 13:15 | Outpatient (REF) | payer MEDICAID, SELFPAY ==
--- NOTE | ~2024-10-26 | MM_ITS ---
EXAMINATION: MM SCREENING DIGITAL BREAST TOMOSYNTHESIS, BILATERAL CLINICAL INFORMATION: Screening. Asymptomatic. COMPARISON: Mammography: Comparison is made with available priors TECHNIQUE: Digital breast mammography with tomosynthesis is performed in both the craniocaudal and mediolateral oblique views along with computer-aided detection (CAD). FINDINGS: There are scattered areas of fibroglandular density (ACR BI-RADS breast composition Category b). There are no significant masses, abnormal calcifications, or other abnormalities. MM/MM tomosynthesis screening BI IMPRESSION: No mammographic evidence of malignancy. ASSESSMENT: BI-RADS BI-RADS 1 - Negative RECOMMENDATION: Routine annual mammography screening. 1 year F/U This examination should not preclude the clinical evaluation of a suspicious palpable abnormality. This patient's information was entered into a reminder system with a target due date for their next mammogram. Electronically signed by: Glenna Sierra DO 11/01/2024 02:25 PM EDT
== END 2024-10-26 13:16 | disposition home or self-care (01) ==
LOC: HO.MAMMO 13:15
PROVIDERS: PCP Nurse Practitioner Primary Care; Visit Provider Nurse Practitioner Primary Care
DX: Z12.31 Encounter for screening mammogram for malignant neoplasm of breast (principal); C22.0 Liver cell carcinoma
CPT/HCPCS: 77063; 77067; 99212

== ENCOUNTER → 2024-10-26 13:30 | Outpatient (BNV) | payer MEDICAID, SELFPAY | PROVIDERS: PCP Nurse Practitioner Primary Care; Visit Provider Internal Medicine | DX: Z12.31 Encounter for screening mammogram for malignant neoplasm of breast (principal) | CPT/HCPCS: 77063; 77067 ==

== ENCOUNTER 2024-11-18 10:21 | Outpatient (REF) | payer MEDICAID, SELFPAY ==
--- NOTE | ~2024-11-18 | XR_ITS ---
EXAMINATION: XR LUMBOSACRAL SPINE CLINICAL INFORMATION: Slip and fall 12/31/23, cont pain COMPARISON: June 27, 2018. TECHNIQUE: AP and lateral views. FINDINGS: Grade 1 anterolisthesis L4-5. Grade 1 retrolisthesis L2-3 and L1-2 levels. Multilevel small marginal osteophyte formation. Endplate sclerosis. Decreased intervertebral disc height at multiple levels. No acute cortical disruption. Facet joint hypertrophy at L4-5 and L5-S1. Vascular calcifications, aorta and iliac arteries. And splenic artery. Punctate calcifications overlapping the right upper quadrant abdomen. Sclerosis and the sacroiliac joints. XR/XR lumbar spine 2-3V IMPRESSION: Multilevel thoracolumbar spondylosis resulting in grade 1 anterolisthesis L4-5 and grade 1 retrolisthesis L1 to and L2-3 levels. Atherosclerosis disease. Probable cholelithiasis. Electronically signed by: Slim Gómez MD 11/18/2024 10:56 AM EDT
--- NOTE | ~2024-11-18 | CT_ITS ---
EXAMINATION: CT CHEST WITH IV CONTRAST INDICATION: C22.0 - Liver cell carcinoma COMPARISON: There is an is made with the prior examination dated 12/29/2023. TECHNIQUE: Helical CT scan of the chest was performed following administration of intravenous contrast. Coronal and sagittal reformatted images were generated and reviewed. This CT exam was performed with one or more of the following dose reduction techniques: automated exposure control, adjustment of the mA and/or kV according to patient size, use of iterative reconstruction technique. DLP: 104 mGy-cm CHEST: THYROID: The thyroid is unremarkable. LUNGS: There is a 3 mm subpleural nodule in the left upper lobe (series 4, image 33) is without change. The lungs are otherwise clear. MEDIASTINUM: There is no mediastinal lymphadenopathy. IRVING: There is no hilar lymphadenopathy. CARDIOVASCULATURE: The heart is mildly enlarged. There is no pericardial effusion. The thoracic aorta is normal in caliber. DEGREE OF CORONARY CALCIFICATION: moderate PLEURA: There is no pleural effusion. No pneumothorax. MAIN AIRWAYS: The mainstem bronchi and proximal branches are patent. AXILLA: There is no axillary lymphadenopathy. BONES AND SOFT TISSUES: There is degenerative disc disease of the spine. UPPER ABDOMEN: Imaging of the upper abdomen demonstrates a nodular liver contour consistent with cirrhosis. There is a 2.7 cm enhancing mass in segment I and a 2.8 cm enhancing mass in segment VIII as noted on MRI, compatible with hepatocellular carcinoma. There is cholelithiasis. The spleen demonstrates heterogeneous enhancement, likely related to the phase of the contrast bolus. The adrenals are unremarkable. CT/CT chest w IV con IMPRESSION: 1. No definite evidence of metastatic disease in the chest. Stable 3 mm subpleural nodule of the left upper lobe. 2. Cirrhosis of the liver with multiple enhancing masses as noted on MRI, compatible with hepatocellular carcinoma. Electronically signed by: Atul Mejía MD 11/18/2024 11:30 AM EDT
--- OUTSIDE RECORDS SUMMARY | 2024-11-18 11:11 | XMS_ITS | Encounter Summary ---
Author Organization [employer] Address [address] [place] [address] [address] [place] [address] Care Team Providers Care Lead Network Architect Name Role Phone Sudha Mitchell Primary Care Provider [phone] Everett Rojas MD Unavailable [phone] Reason for Visit * Reason Onset Date Comments Med Refill 11/23/2022 Encounter Details Date Type Department Care Team (Late st Contact Info) Description 11/23/2022 Telephone [facility] MEDICINE [address] [place] [address] Sudha Mitchell ANP [address] [place] [address] Med Refill Social History Tobacco Use Types [...] Department Care Team (Late Contact Info) Description 01/08/2025 9:00 AM EDT Clinical Support [facility] MEDICINE [address] [place] [address] Nichole Lucio, MONAE [address] [place] [address] documented as of this encounter Visit Diagnoses Not on filedocumented in this encounter Care Teams Lead Network Architect Relationship Specialty Start Date End Date Sudha Mitchell ANP [address] [place] [address] PCP - General Family Medicine 09/29/19 Everett Rojas MD [address] [place] [address] Drive 3rd [place] [address] Cardiology 04/21/24 documented as of this encounter
[2024-11-18] MEDS: iohexoL 350 MG/ML 100 ML INFUS..BTL 65 ML IV (11:17)
== END 2024-11-18 10:22 | disposition home or self-care (01) ==
LOC: HO.CT 10:21
PROVIDERS: PCP Nurse Practitioner Primary Care; Visit Provider Internal Medicine Gastroenterology
DX: C22.0 Liver cell carcinoma (principal); M54.41 Lumbago with sciatica, right side
CPT/HCPCS: 71260; 72100; Q9967

== ENCOUNTER → 2024-11-18 10:22 | Outpatient (BNV) | payer MEDICAID, SELFPAY | PROVIDERS: PCP Nurse Practitioner Primary Care; Visit Provider Radiology Diagnostic Radiology | DX: R91.1 Solitary pulmonary nodule (principal); K74.60 Unspecified cirrhosis of liver | CPT/HCPCS: 71260; 72100 ==

== ENCOUNTER 2024-12-01 14:21 | Outpatient (AMB) | payer MEDICAID, SELFPAY ==
--- NOTE | 2024-12-01 14:25 | A.OFFVIS_ITS ---
Vital Signs 12/01/24 14:26 Height 4 ft 11 in Weight 143 lb 4.807 oz BMI 28.9 BP 110/60 Blood Pressure Location Lt brachial Position Sitting Pulse 84 Pulse Source Monitor Intake Visit Reasons: 3 mth f/up holter Allergies rivaroxaban (From XARELTO) Allergy (Intermediate, Verified 10/26/24 10:55) GI BLEEDING SEAFOOD Allergy (Intermediate, Uncoded 10/26/24 10:55) RASH Medication List - Last Reconciled 12/01/24 by Everett Rojas MD albuterol sulfate 90 mcg/actuation (ProAir HFA) 2 puffs PO Q4-6H PRN apixaban (Eliquis) 5 mg PO BID 90 days calcium carbonate-vitamin D3 600 mg-10 mcg (400 unit) 1 tab PO cholecalciferol (vitamin D3) 25 mcg PO QAM fluticasone propionate 110 mcg/actuation (Flovent HFA) 1 puff inhalation BID hydrochlorothiazide 25 mg PO QAM lidocaine 5% (Lidoderm) 1 - 2 patches topical DAILY PRN metoprolol tartrate 50 mg PO BID mometasone 100 mcg/actuation (Asmanex HFA) 1 puff inhalation BID montelukast 10 mg PO BEDTIME tramadol 50 - 100 mg PO Q12H PRN HPI Comments Details: Walt returns for follow-up regarding paroxysmal atrial fibrillation. She has a history of paroxysmal atrial fibrillation and was doing well on flecainide and beta-blockers but due to recurrent issues, she underwent ablation in April 2024. Then we left her only on beta-blockers. With regard to anticoagulation, she was on Xarelto till around 2016 when she had GI bleeding with severe anemia and hemoglobin of about 4.9. After that, she has not been any anticoagulation-but recently again put back. The last few months, she has been diagnosed with hepatocellular carcinoma and is pursuing treatment for that. Cardiac standpoint, no clear-cut concerns. Feels okay. [facility] Medical History (Updated 10/26/24 @ 11:26 by Darius Tamayo MD) Hemorrhage of gastrointestinal tract, unspecified PAF (paroxysmal atrial fibrillation) Tubular adenoma of colon Low vitamin D level Atrial fibrillation Cirrhosis of liver Asthma Hepatitis B Surgical History (Updated 09/14/24 @ 11:44 by LIANET Lee) Hx of cataract surgery History of eyelid surgery History of esophagogastroduodenoscopy (EGD) Hx of colonoscopy History of total abdominal hysterectomy and bilateral salpingo-oophorectomy History of 3 sections Family History Father No problems noted. Mother No problems noted. 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 Review of Systems Const Denies weakness ENT Denies dizziness Card Denies chest pain, Denies chest pain with activity, Denies syncope, Denies rapid heart rate, Denies pedal edema, Denies edema, Denies leg edema, Denies lightheadedness, Denies palpitations, Denies dyspnea, Denies dyspnea on exertion and Denies orthopnea Resp Denies cough, Denies dyspnea and Denies dyspnea on exertion GI Denies hematochezia and Denies change in stool character Musc Denies abnormal gait, Reports back pain, Reports myalgias, Reports arthralgias, Denies muscle cramps, Denies muscle weakness, Denies numbness, Denies radiating pain into limb and Denies tingling Neuro Denies abnormal gait, Denies dizziness, Denies syncope, Denies numbness, Denies tingling and Denies weakness Endo Denies palpitations Physical Exam Vital Signs: Last Vital Signs Pulse 84 12/01/24 14:26 BP 110/60 12/01/24 14:26 BMI result Body Mass Index 28.9 Const General: comfortable and no acute distress Orientation/consciousness: patient oriented x3 HEENT Other: Unremarkable Head: Yes normal to inspection Neck Neck: Yes normal visual inspection Chest Chest palpation & inspection: normal inspection of the chest Resp Auscultation: clear to auscultation bilaterally Cardio Palpation: normal PMI Heart sounds: S1 normal heart sound present, S2 normal heart sound present, no gallops, no murmurs and no rubs GI Palpation (GI): Soft to palpation Back/Spine/Pelvis Other: unremarkable Skin General skin exam: no rashes or lesions noted Neuro General: patient oriented x3 Extrem General: Yes normal to inspection Psych Mental Status: mental status grossly normal Office Procedures EKG Details: EKG with underlying sinus rhythm at 84/Min; no ischemic changes; [place] [address]-[id number], Complete Assessment & Plan Assessment & Plan (1) PAF (paroxysmal atrial fibrillation): Code(s): I48.0 - Paroxysmal atrial fibrillation Category: Medical Plan: Failed flecainide. Status post ablation. In the recent Holter, underlying sinus rhythm without any clear-cut atrial fibrillation. With regard to long-term anticoagulation, not clear if she can tolerate or not. Can keep it for the time being. (2) Essential hypertension: Code(s): I10 - Essential (primary) hypertension Category: Medical Plan: Stable. No changes. Coding Level of Care Code Est Pt Level 4 (60833) Diagnoses PAF (paroxysmal atrial fibrillation) I48.0 Essential hypertension I10 CPT Codes EKG - CPT: 43810-Uuurcigikfusonahi, Complete ([id number])
[2024-12-01 14:26] VITALS: BP 110/60; PULSE 84; BMI 28.9
--- OUTSIDE RECORDS SUMMARY | 2024-12-01 15:36 | XMS_ITS | Encounter Summary ---
Author Organization [employer] Address [address] [place] [address] [address] [place] [address] Care Team Providers Care Cook Chili Name Role Phone Sudha Mitchell Primary Care Provider [phone] Everett Rojas MD Unavailable [phone] Reason for Visit * Reason Onset Date Comments Med Refill 11/23/2022 Encounter Details Date Type Department Care Team (Late st Contact Info) Description 11/23/2022 Telephone [facility] MEDICINE [address] [place] [address] Sudha Mitchell ANP [address] [place] [address] Med Refill Social History Tobacco Use Types [...] Description 01/08/2025 9:00 AM EDT Clinical Support [facility] MEDICINE [address] [place] [address] Nichole Lucio, MONAE [address] [place] [address] documented as of this encounter Visit Diagnoses Not on filedocumented in this encounter Care Teams Cook Chili Relationship Specialty Start Date End Date Sudha Mitchell ANP [address] [place] [address] PCP - General Family Medicine 09/29/19 Everett Rojas MD [address] [place] [address] Drive 3rd [place] [address] Cardiology 04/21/24 documented as of this encounter
== END 2024-12-01 15:18 | disposition home or self-care (01) ==
LOC: HO.HCS 14:22
PROVIDERS: PCP Nurse Practitioner Primary Care; Visit Provider Internal Medicine
DX: I48.0 Paroxysmal atrial fibrillation (principal); I10 Essential (primary) hypertension
CPT/HCPCS: 93010; 99214

== ENCOUNTER → 2024-12-01 14:21 | Outpatient (BNVA) | payer MEDICAID, SELFPAY | PROVIDERS: PCP Nurse Practitioner Primary Care; Visit Provider Internal Medicine | DX: I10 Essential (primary) hypertension (principal); I48.0 Paroxysmal atrial fibrillation | CPT/HCPCS: 93005; 99212 ==

== ENCOUNTER → 2024-12-02 14:53 | Outpatient (BNV) | payer MEDICAID, SELFPAY | PROVIDERS: PCP Nurse Practitioner Primary Care; Visit Provider Internal Medicine | DX: C22.0 Liver cell carcinoma (principal); K74.60 Unspecified cirrhosis of liver; B19.20 Unspecified viral hepatitis C without hepatic coma | CPT/HCPCS: 99204 ==

== ENCOUNTER 2024-12-08 11:14 | Emergency (ER) | payer MEDICAID, SELFPAY ==
--- NOTE | ~2024-12-08 | CT_ITS ---
EXAMINATION: CT ANGIOGRAM CHEST CLINICAL INFORMATION: Hypoxia COMPARISON: November 18, 2024 TECHNIQUE: Multiple axial images were obtained through the chest after the administration of 65 mL of Omnipaque 350 intravenous contrast. Extensive vascular post-processing including two-dimensional and three-dimensional reformatted images were created and reviewed on an independent workstation. SmartPrep technique This CT examination was performed using dose optimization techniques as appropriate, variously including the following: *Automated exposure control *Adjustment of mA and/or kV according to patient size (this includes techniques or standardized protocols for targeted exams where dose is matched to indication/reason for exam; i.e. extremities or head) *Use of iterative reconstruction technique DLP: 167 mGy centimeter. FINDINGS: The main pulmonary artery or its main branches and subsegmental pulmonary branches are patent without intraluminal filling defects. No aneurysm or dissection, thoracic aorta. Mixed plaques in the thoracic aortic arch. Calcified plaques in the coronary arteries. No pericardial effusion. No pneumothorax. No pleural effusion. Subtle pulmonary patchy groundglass. No bronchiectasis. No honeycombing. No acute rib fractures. Scapula and sternum are grossly intact. The intra-abdominal organs demonstrate multifocal partially calcified/posttreatment hyperdensity lesions throughout the right hepatic lobe. There is a nodular surface of the liver. The bulky calcific/hyperdense lesion in the caudate lobe. Contracted gallbladder with cholelithiasis. Multilevel spondylosis without acute fracture or gross listhesis. CT/CT angio chest PE protocol IMPRESSION: No acute pulmonary artery emboli. No aneurysm or dissection thoracic aorta. Mild interstitial lung edema in the correct clinical settings. Probable the treated multiple liver lesions. Coronary artery disease and atherosclerosis disease. Fleischner guidelines were followed. Electronically signed by: Slim Gómez MD 12/08/2024 03:39 PM EDT
--- NOTE | ~2024-12-08 | XR_ITS ---
EXAMINATION: XR CHEST 2 VIEWS HISTORY: shortness of breath COMPARISON: Comparison is made with the prior examination dated 12/29/2023. FINDINGS: PA and lateral views of the chest are submitted. The lungs are expanded and clear. There is no pleural effusion, pneumothorax, or pulmonary vascular congestion. The heart is normal in size. There is degenerative disc disease of the spine. XR/XR chest 2V IMPRESSION: No acute cardiopulmonary abnormality. Electronically signed by: Atul Mejía MD 12/08/2024 12:14 PM EDT
--- NOTE | 2024-12-08 11:16 | ED_ITS ---
HPI - SOB/Dyspnea General Chief Complaint: Upper Respiratory Symptoms Stated Complaint: Difficulty breathing Time Seen by Provider: 12/08/24 12:25 Source: patient, RN notes reviewed and old records reviewed Mode of arrival: ambulatory Limitations: no limitations History of Present Illness ED Provider: Massimo BELLA Narrative: 69-year-old female with a past medical history significant for atrial fibrillation on Eliquis, asthma, hepatocellular carcinoma presents for evaluation of shortness of breath. Patient reports her symptoms started 19 days ago when she had a procedure with a catheterization of her liver. She felt that her shortness of breath was initially attributed due to normal postop recovery. However her symptoms have not resolved. Denies any fevers She does have a persistent dry cough as well. The patient had a CT scan with contrast on 11/18/2024 that did not show any metastatic disease to the lungs This was not an angiography study The patient does not have any significant pain, but primarily shortness of breath and a dry cough. She has not been using her albuterol inhaler Related Data Home Medications ?Medication ?Instructions ?Recorded ?Confirmed montelukast 10 mg tablet 10 mg PO BEDTIME 01/31/21 albuterol sulfate 90 mcg/actuation 2 puff PO Q4-6H PRN sob 05/15/21 12/02/24 aerosol inhaler (ProAir HFA) fluticasone propionate 110 1 puff inhalation BID 05/1512/02/24 mcg/actuation HFA aerosol inhaler (Flovent HFA) calcium 600 mg (as 1 tab PO DAILY 01/22/2211/11 carbonate)-vitamin D3 10 mcg (400 unit) tablet lidocaine 5 % topical patch 1 - 2 patch topical DAILY PRN pain 01/22/22 12/02/24 (Lidoderm) tramadol 50 mg tablet 50 - 100 mg PO Q12H PRN Pain 01/22/22 12/02/24 (Scale Score 7-10) mometasone 100 mcg/actuation HFA 1 puff inhalation BID 09/14/24 12/02/24 aerosol inhaler (Asmanex HFA) Previous Rx's ?Medication ?Instructions ?Recorded apixaban 5 mg tablet (Eliquis) 5 mg PO BID 90 days #18 0 tabs 12/24/23 cholecalciferol (vitamin D3) 25 25 mcg PO QAM #90 tabs 06/10/24 mcg (1,000 unit) tablet hydrochlorothiazide 25 mg tablet 25 mg PO QAM #90 tabs 07/10/24 metoprolol tartrate 50 mg tablet 50 mg PO BID #180 tab s 11/18/24 Allergies Allergy/AdvReac Type Severity Reaction Status Date / Time rivaroxaban (From XARELTO) Allergy Intermediate GI BLEEDING Verified 12/08/24 11:19 SEAFOOD Allergy Intermediate RASH Uncoded 12/08/24 11:19 Review of Systems 2 Constitutional: Constitutional: Denies body ache(s), Reports chills and Denies fever(s) Cardiovascular: Cardiovascular: Denies chest pain, Reports leg edema, Reports dyspnea and Reports dyspnea on exertion Respiratory: Respiratory: Reports cough, Denies excessive phlegm production, Reports dyspnea, Reports dyspnea on exertion and Reports wheezing Gastrointestinal: Gastrointestinal: Denies abdominal pain, Denies nausea and Denies vomiting Musculoskeletal: Musculoskeletal: Denies back pain Integumentary/Breasts: Skin/Breast: Denies rash Allergic/Immunologic: Allergic/Immunologic: Reports wheezing [facility] Past Medical History Medical History (Updated 12/08/24 @ 17:42 by Evan Keys) Hemorrhage of gastrointestinal tract, unspecified PAF (paroxysmal atrial fibrillation) Tubular adenoma of colon Low vitamin D level Atrial fibrillation Cirrhosis of liver Asthma Hepatitis B Surgical History (Updated 12/02/24 @ 15:20 by Lacey Alanis MD) Hx of cataract surgery History of eyelid surgery History of esophagogastroduodenoscopy (EGD) Hx of colonoscopy History of total abdominal hysterectomy and bilateral salpingo-oophorectomy History of 3 sections Family History Family History (Updated 12/02/24 @ 15:10 by Heidy Ibarra) Father No problems noted. Mother No problems noted. 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 Physical Exam 2 Vital Signs: Vital Signs: Last Vital Signs Temp 98.4 F 12/08/24 18:27 Pulse 72 12/08/24 18:27 Resp 18 12/08/24 18:27 BP 135/60 12/08/24 18:27 Pulse Ox 99 12/08/24 18:27 O2 Del Method Room Air 12/08/24 18:27 BMI result Body Mass Index 29.3 Const: General: healthy appearing, comfortable, no acute distress, alert and awake Orientation/consciousness: patient oriented x3 HEENT: Head: Yes normocephalic and Yes atraumatic Eyes: Eyelids: Yes eyelids normal Conjunctivae: conjunctivae normal S clerae: sclerae normal Corneas: corneas normal Pupils: Equal, round and reactive pupils present EOM: EOMs intact bilaterally Resp: Effort & Inspection: abnormal respiratory effort (Slightly increased respiratory effort) and able to speak in complete sentences Auscultation: not clear to auscultation bilaterally and wheezes expiratory wheezes and lower bilaterally Cardio: Rate: regular rate Rhythm: regular rhythm Skin: General skin exam: elasticity normal Neuro: General: patient oriented x3 Cranial nerves: Yes Equal, round and reactive pupils present and Yes Bilaterally intact EOM present Cognition (Neuro): normal cognition Course Course Course Narrative: This is an RME performed by Vasu Welch CNP: Additional HPI, ROS, PE not included below will be deferred to primary provider. 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 Plan: Serum labs, EKG, CXR, viral serologies Reevaluation(s) Reevaluation #1: Patient's CTA negative for PE or pneumonia. There is questionable mild interstitial edema however I feel this is less likely as the patient has no history of CHF, no lower extremity edema, BNP is within normal limits. I do feel the patient's symptoms are most likely related to reactive airway disease. I recommended discharge home with prednisone and the patient reports that she does not like prednisone because her mother was on and off it at the end of her life and the patient attributes this poor outcome to prednisone. I informed the patient it is okay if she decides not to take prednisone but I recommend nebulizers around the clock, every 4 hours for her breathing and to return for new or worsening symptoms. Time: 17:40 Medications Administered Discontinued Medications Generic Name Dose Route Start Last Admin Trade Name Marsha PRN Reason Stop Dose Admin Iohexol 100 ml 12/08/24 15:32 12/08/24 15:32 Iohexol 350 Mg/Ml 100 Ml Infus..Btl IV 12/08/24 15:33 65 ml ONCE ONE Administration Levalbuterol HCl 1.25 mg 12/08/24 13:09 12/08/24 13:15 Levalbuterol Hcl 1.25 Mg/3 Ml Vial.Neb INHALE 12/08/24 13:10 1.25 mg ONCE ONE Administration Methylprednisolone Sodium Succinate 125 mg 12/08/24 14:02 12/08/24 14:15 Methylprednisolone Sod Succ 125 Mg/2 Ml Vial IVPUSH 12/08/24 14:03 125 mg ONCE ONE Administration Medical Decision Making Medical Decision Making MDM Narrative: 69-year-old female with a past medical history significant for atrial fibrillation on Eliquis, hypertension, asthma, hepatocellular carcinoma. The patient presents for evaluation of shortness of breath, she is wheezy on exam, she is tachypneic on arrival to 26 but she is not hypoxic initially. My initial thoughts the patient is having an asthma exacerbation as she is wheezing, your chest x-ray was clear, no evidence of pulmonary edema or pneumonia. She has no fever or leukocytosis. Her EKG is nonischemic, troponin negative, BNP within normal limits. She was given a nebulizer treatment and reports mild improvement but when I went to re-evaluate her, her lungs did sound better with less wheezing but she did have some transient hypoxia with an oxygen saturation dropping as low as 88%. After coughing her oxygen saturation improved 95% on room air. She did hold her Eliquis leading up to her recent procedure 19 days ago, given her hypoxia in not impressive exam we will get a CTA to rule out PE. Viral swabs are negative Differential Diagnosis Differential Diagnoses: The differential diagnosis associated with the presentation includes Asthma exacerbation Bronchitis Pneumonia PE Viral syndrome Admission/Observation Consideration of admission/observation: Escalation of care including admission/observation considered Lab Data MDM Lab Attestation statement: I reviewed the patient's lab results. Mild leukopenia to 3.6 which is consistent with her baseline and known history of hepatocellular carcinoma. She has a mild normocytic anemia which again can be attributed to her history of liver cancer. Platelet count is within normal limits. There is no left shift to suggest infectious process. Chemistries significant for a BUN slightly elevated to 18 with a normal creatinine of 1.0, a slight elevation of AST and ALT to her baseline but again likely attributed to HCC. Troponin is within normal limits at 8.5, BNP is within normal limits at 58. There is no chest pain, less likely ACS 12/08/24 11:52 12/08/24 11:52 Labs: Lab Results 12/08/24 Range/Units 11:52 WBC 3.6 L (4.8-10.8) X10*3/uL RBC 3.84 L (4.20-5.50) X10*6/uL Hgb 11.6 L (12.0-16.0) g/dl Hct 34.1 L (37.0-47.0) % MCV 88.8 (80.0-98.0) fL MCH 30.2 (27.0-33.0) pg MCHC 34.0 (31.0-35.0) g/dl RDW 14.4 (11.0-16.0) % Plt Count 170 D (160-400) X10*3/uL MPV 9.5 (9.4-12.3) fL Immature Gran % (Auto) 0.3 (0.0-0.4) % Neut % (Auto) 68.6 (45-73) % Lymph % (Auto) 20.7 (20-40) % Carbon % (Auto) 8.1 (2-11) % Eos % (Auto) 1.7 (0-4) % Baso % (Auto) 0.6 (0-2) % Lymph # (Auto) 0.7 L (1.2-4.9) X10*3/uL Carbon # (Auto) 0.3 (0.1-1.2) X10*3/uL Eos # (Auto) 0.1 (0.0-0.4) X10*3/uL Baso # (Auto) 0.0 (0.0-0.2) X10*3/uL Abs Immat Gran (auto) 0.01 (0.00-0.03) X10*3/uL Absolute Neuts (auto) 2.5 (2.0-8.3) x10*3/uL Absolute Nucleated RBC 0.000 (0.0-0.012) X10*3/uL Nucleated RBC % (auto) 0.0 (0.0-0.2) /100WBC PT 23.4 H D (10.9-12.4) SEC INR 2.0 H (0.9-1.1) Sodium 140 (135-145) mmol/L Potassium 3.7 (3.3-5.1) mmol/L Chloride 107 (96-108) mmol/L Carbon Dioxide 26 (22-29) mmol/L Anion Gap 11 L (12-20) BUN 18 H (9-16) mg/dL Creatinine 1.00 (0.5-1.4) mg/dL Estim Creat Clear Calc 42.5 Estimated GFR 55 Random Glucose 117 H (60-115) mg/dL Calcium 9.3 (8.4-10.2) mg/dL Total Bilirubin 0.6 (0.0-1.0) mg/dL Direct Bilirubin 0.3 (0.0-0.5) mg/dL AST 36 H (5-31) U/L ALT 36 H (0-31) U/L Alkaline Phosphatase 84 (39-117) U/L Troponin I High Sens 8.5 (<3.5-17.0) ng/L B-Natriuretic Peptide 58 (<100) pg/mL Total Protein 7.5 (6.5-8.0) g/dL Albumin 3.3 L (3.5-5.0) g/dL Influenza Type A (PCR) NEGATIVE (Negative) Influenza Type B (PCR) NEGATIVE (Negative) RSV RNA Qual (PCR) NEGATIVE (Negative) SARS-CoV-2 RNA (RT-PCR) NEGATIVE (Negative) Independent Interpretation I performed an independent interpretation of an: EKG (Sinus rhythm with a rate of [address] segment elevation or depression) and Plain X-Ray (Agree with Radiology interpretation, no focal consolidation) Radiology Impression Discussion of test interpretation with radiology: I have reviewed the radiologist's reading. Radiologist Impression: FINDINGS: PA and lateral views of the chest are submitted. The lungs are expanded and clear. There is no pleural effusion, pneumothorax, or pulmonary vascular congestion. The heart is normal in size. There is degenerative disc disease of the spine. XR/XR chest 2V IMPRESSION: No acute cardiopulmonary abnormality. Electronically signed by: Atul Mejía MD 12/08/2024 12:14 PM EDT RP Discharge Plan Discharge Clinical Impression: Asthma exacerbation Patient Disposition: Home, Self-Care Instructions: Asthma (ED) Additional Instructions: Use your albuterol inhaler/nebulizers every 4 hours as needed for shortness of breath and wheezing. You may need to return for additional evaluation of her symptoms are worsening in you may have to reconsider prednisone use. You should return to the ER for worsening shortness of breath, any fevers or chest pain. Follow up with your primary doctor You may use [id number] cough medicine if you wish Prescriptions: No Action Eliquis 5 mg tablet 5 mg PO BID 90 Days Qty: 180 3RF cholecalciferol (vitamin D3) 25 mcg (1,000 unit) tablet 25 mcg PO QAM Qty: 90 2RF hydrochlorothiazide 25 mg tablet 25 mg PO QAM Qty: 90 3RF metoprolol tartrate 50 mg tablet 50 mg PO BID Qty: 180 3RF montelukast 10 mg tablet 10 mg PO BEDTIME Flovent HFA 110 mcg/actuation HFA aerosol inhaler 1 puff inhalation BID albuterol sulfate [ProAir HFA] 90 mcg/actuation HFA aerosol inhaler 2 puff PO Q4-6H PRN (Reason: sob) lidocaine [Lidoderm] 5 % adhesive patch,medicated 1 - 2 patch topical DAILY PRN (Reason: pain) calcium carbonate-vitamin D3 600 mg-10 mcg (400 unit) tablet 1 tab PO DAILY tramadol 50 mg tablet 50 - 100 mg PO Q12H PRN (Reason: Pain (Scale Score 7-10)) Asmanex HFA 100 mcg/actuation HFA aerosol inhaler 1 puff inhalation BID Interventions: ED Discharge Assessment Last Done: 12/08/24 18:27 Discharge Date/Time: 12/08/24 18:27 Print Language: Choose Not To Answer
[2024-12-08 11:17] VITALS: BP 106/56; PULSE 78; RESP 26; TEMP 36.8; O2SAT 95; BMI 29.3
--- NOTE | 2024-12-08 11:23 | ECG_ITS ---
Test Reason : SOB Blood Pressure : */* mmHG Vent. Rate : 66 BPM Atrial Rate : 66 BPM P-R Int : 182 ms QRS Dur : 94 ms QT Int : 370 ms P-R-T Axes : 53 33 20 degrees QTcB Int : 387 ms Normal sinus rhythm Normal ECG When compared with ECG of 29-Dec-2023 11:12, No significant change was found Referred By: Destinee Welch Electronically Signed By: AMISHA JAIMES MD
[2024-12-08 11:45] VITALS: BP 103/80; PULSE 74; RESP 12; TEMP 37.1; O2SAT 96
[2024-12-08 11:57] LABS: MANUAL DIFF FLAG NO
[2024-12-08 11:59] LABS: Hematocrit 34.1 % (37.0-47.0); Hemoglobin 11.6 g/dl (12.0-16.0); Imm Gran Abs Auto 0.01 X10*3/uL (0.00-0.03); Imm Gran Pct Auto 0.3 % (0.0-0.4); Lymphocytes Absolute Auto 0.7 X10*3/uL (1.2-4.9); Mean Corpuscular HGB Conc 34.0 g/dl (31.0-35.0); Mean Corpuscular Hemoglobin 30.2 pg (27.0-33.0); Mean Corpuscular Volume 88.8 fL (80.0-98.0); NRBC Abs Auto 0.000 X10*3/uL (0.0-0.012); NRBC Pct Auto 0.0 /100WBC (0.0-0.2); Platelet Count 170 X10*3/uL (160-400); Red Blood Count 3.84 X10*6/uL (4.20-5.50); White Blood Count 3.6 X10*3/uL (4.8-10.8)
[2024-12-08 12:05] LABS: INTERNATIONAL NORM RATIO 2.0 (0.9-1.1); Prothrombin Time 23.4 SEC (10.9-12.4)
[2024-12-08 12:16] LABS: Alanine Aminotransferase 36 U/L (0-31); Albumin Level 3.3 g/dL (3.5-5.0); Alkaline Phosphatase 84 U/L (39-117); Anion Gap 11 (12-20); Aspartate Amino Transferase 36 U/L (5-31); Blood Urea Nitrogen 18 mg/dL (9-16); Calcium 9.3 mg/dL (8.4-10.2); Carbon Dioxide 26 mmol/L (22-29); Chloride 107 mmol/L (96-108); Creatinine Clr Calc Pharmacy 42.5; Estimated Glomerular Filt Rate 55; Potassium 3.7 mmol/L (3.3-5.1); Sodium 140 mmol/L (135-145); Total Protein 7.5 g/dL (6.5-8.0)
[2024-12-08 12:19] LABS: B Type Natriuretic Peptide 58 pg/mL (<100)
[2024-12-08 12:23] LABS: Troponin-I High Sensitivity 8.5 ng/L (<3.5-17.0)
[2024-12-08 12:46] LABS: Resp Syncy Virus RNA Qual PCR NEGATIVE (Negative); SARS COV2 PCR INHOUSE NEGATIVE (Negative)
--- OUTSIDE RECORDS SUMMARY | 2024-12-08 13:14 | XMS_ITS | Encounter Summary ---
Author Organization [employer] Address [address] [place] [address] 7t [place] [address] Care Team Providers Care Hotel Receptionist Name Role Phone Sudha Mitchell Primary Care Provider [phone] Everett Rojas MD Unavailable [phone] Reason for Visit * Reason Onset Date Comments Med Refill 11/23/2022 Encounter Details Date Type Department Care Team (Late st Contact Info) Description 11/23/2022 Telephone [facility] [address] [place] [address] Sudha Mitchell ANP [address] [place] [address] Med Refill Social History Tobacco Use Types [...] Description 01/08/2025 9:00 AM EDT Clinical Support [facility] [address] [place] [address] Nichole Lucio, MONAE [address] [place] [address] documented as of this encounter Visit Diagnoses Not on filedocumented in this encounter Care Teams Hotel Receptionist Relationship Specialty Start Date End Date Sudha Mitchell ANP [address] [place] [address] PCP - General Family Medicine 09/29/19 Everett Rojas MD [address] [place] [address] Drive 3rd [place] [address] Cardiology 04/21/24 documented as of this encounter
[2024-12-08 13:15] VITALS: PULSE 55; RESP 12; O2SAT 99
[2024-12-08 13:53] VITALS: BP 125/58; PULSE 66; RESP 17; O2SAT 96
[2024-12-08 14:13] VITALS: BP 135/60; PULSE 72; RESP 18; TEMP 36.9; O2SAT 99
[2024-12-08] MEDS: iohexoL 350 MG/ML 100 ML INFUS..BTL IV (15:32)
[2024-12-08 18:27] VITALS: BP 135/60; PULSE 72; RESP 18; TEMP 36.9; O2SAT 99
== END 2024-12-08 18:27 | disposition home or self-care (01) ==
PROVIDERS: Nurse Practitioner Family; Emergency Provider Emergency Medicine; PCP Nurse Practitioner Primary Care
DX: J45.901 Unspecified asthma with (acute) exacerbation (principal); R06.02 Shortness of breath; R05.9 Cough, unspecified; C22.0 Liver cell carcinoma; D64.9 Anemia, unspecified; I48.0 Paroxysmal atrial fibrillation; Z03.818 Encounter for observation for suspected exposure to other biological agents ruled out; Z87.891 Personal history of nicotine dependence; Z79.01 Long term (current) use of anticoagulants; Z79.899 Other long term (current) drug therapy
CPT/HCPCS: 36415; 71046; 71275; 80048; 80076; 83880; 84484; 85025; 85610; 87637; 93005; 96374; 99284; J2919; Q9967

== ENCOUNTER → 2024-12-08 11:23 | Outpatient (BNV) | payer MEDICAID, SELFPAY | PROVIDERS: PCP Nurse Practitioner Primary Care; Visit Provider Radiology Diagnostic Radiology | DX: R09.02 Hypoxemia (principal); R06.02 Shortness of breath | CPT/HCPCS: 71046; 71275 ==

== ENCOUNTER → 2024-12-08 11:23 | Outpatient (BNV) | payer MEDICAID, SELFPAY | PROVIDERS: Emergency Provider Emergency Medicine; PCP Nurse Practitioner Primary Care; Visit Provider Internal Medicine Cardiovascular Disease | DX: R06.02 Shortness of breath (principal) | CPT/HCPCS: 93010 ==

== ENCOUNTER 2025-01-04 13:11 | Outpatient (REF) | payer MEDICAID, SELFPAY ==
--- OUTSIDE RECORDS SUMMARY | 2025-01-04 14:31 | XMS_ITS | Encounter Summary ---
Author Organization [email or web address] Address [address] [facility] [address]t [place] [address] Care Team Providers Care Gas And Oil Checker Name Role Phone Sudha Mitchell Primary Care Provider [phone] Everett Rojas MD Unavailable Reason for Visit * Reason Comments Med Refill Encounter Details Date Type Department Care Team (Late st Contact Info) Description 10/18/2023 Refill [facility] MED[facility]INE [address] [place] [address] Sudha Mitchell ANP [address] [place] [address] Lumbago of lumbar region with sciatica Social [...] Care Team (Late st Contact Info) Description 01/08/2025 9:00 AM EDT Clinical Support [facility] MEDICINE [address] [place] [address] Nichole Lucio RN [address] [place] [address] documented as of this encounter Visit Diagnoses Diagnosis Lumbago of lumbar region with sciatica documented in this encounter Care Teams Gas And Oil Checker Relationship Specialty Start Date End Date Sudha Mitchell ANP [address] [place] [id number] PCP - General Family Medicine 09/29/19 Everett Rojas MD [address] [place] [address] 3rd [place] [address] Cardiology 04/21/24 documented as of this encounter
--- OUTSIDE RECORDS SUMMARY | 2025-01-04 14:31 | XMS_ITS | Encounter Summary ---
Author Organization [employer] Address [address] [facility] 7t [place] [address] Care Team Providers Care Dextrine Mixer Name Role Phone Sudha Mitchell Primary Care Provider [phone] Everett Rojas MD Unavailable [phone] Reason for Visit * Reason Comments Med Refill Encounter Details Date Type Department Care Team (Late st Contact Info) Description 02/20/2024 Refill [facility] [address] [place], [place] [phone] Sudha Mitchell ANP [address] [place] [address] Lumbago of lumbar region with sciatica Social [...] Description 01/08/2025 9:00 AM EDT Clinical Support [facility] MEDICINE 230 [place] [address] Nichole Lucio RN [address] [place] [address] documented as of this encounter Visit Diagnoses Diagnosis Lumbago of lumbar region with sciatica documented in this encounter Care Teams Dextrine Mixer Relationship Specialty Start Date End Date Sudha Mitchell ANP [address] [place] [address] PCP - General Family Medicine 09/29/19 Everett Rojas MD [address] [place] [address] 3rd [place] [address] Cardiology 04/21/24 documented as of this encounter
--- OUTSIDE RECORDS SUMMARY | 2025-01-04 14:31 | XMS_ITS | Encounter Summary ---
Author Organization [employer] Address [address] [place] [address] 7t [place] [address] Care Team Providers Care Radiologic Tech Name Role Phone Sudha Mitchell Primary Care Provider [phone] Everett Rojas MD Unavailable [phone] Reason for Visit * Reason Comments Med Refill Encounter Details Date Type Department Care Team (Late Contact Info) Description 05/02/2022 Refill [facility] [address] [place], [place] [phone] Sudha Mitchell ANP [address] [place] [address] Cervicalgia Social History Tobacco Use Types Packs/Day [...] Description 01/08/2025 9:00 AM EDT Clinical Support [facility] MED[facility]INE [address] [place] [address] Nichole Lucio, MONAE [address] [place], [place] [phone] documented as of this encounter Visit Diagnoses Diagnosis Cervicalgia documented in this encounter Care Teams Radiologic Tech Relationship Specialty Start Date End Date Sudha Mitchell ANP [address] [place] [address] PCP - General Family Medicine 09/29/19 Everett Rojas MD [address] [place] [address] Drive 3rd [place] [address] Cardiology 04/21/24 documented as of this encounter
--- OUTSIDE RECORDS SUMMARY | 2025-01-04 14:31 | XMS_ITS | Encounter Summary ---
Author Organization [employer] Address [address] [place] [address] 7t [place] [address] Care Team Providers Care Admissions Rn Name Role Phone Sudha Mitchell Primary Care Provider [phone] Everett Rojas MD Unavailable [phone] Reason for Visit * Reason Comments Med Refill Encounter Details Date Type Department Care Team (Late st Contact Info) Description 06/22/2022 Refill [facility] MEDICINE [address] [place] [id number] Sudha Mitchell ANP [address] [place] [address] Lumbago of lumbar region with sciatica Social [...] Description 01/08/2025 9:00 AM EDT Clinical Support [facility]ICINE [address] [place] [address] Nichole Lucio RN 505 [place] [address] documented as of this encounter Visit Diagnoses Diagnosis Lumbago of lumbar region with sciatica documented in this encounter Care Teams Admissions Rn Relationship Specialty Start Date End Date Sudha Mitchell ANP [address] [place] [address] [place] [address] PCP - General Family Medicine 09/29/19 Everett Rojas MD [address] [place] [address] Drive 3rd [place] [address] Cardiology 04/21/24 documented as of this encounter
--- OUTSIDE RECORDS SUMMARY | 2025-01-04 14:31 | XMS_ITS | Encounter Summary ---
Author Organization [facility] Address [address] [place] [address] Care Team Providers Care News Correspondent Name Role Phone Darius Tamayo MD Primary Care Provider [phone] Encounter Details Date Type Department Care Team (Late st Contact Info) Description 12/22/2024 Education [facility] Transplant Department [address] [place] [address] Sabrina Dahl RN Social History Tobacco Use Types Packs/Day Years Used Date Smoking Tobacco: Former Cigarettes Smokeless Tobacco: Never Alcohol Use Standard Drinks/Week Comments Never 0 (1 standard drink = 0.6 oz pur e alcohol) Comments Unknown Sex and Gender Information Value Date Recorded Sex Assigned at Female 12/22/2024 11:36 AM EDT Legal Sex Female 4:32 PM EDT Gender Identity Not on file Sexual Orientation Not on file documented as of this encounter Plan of Treatment Upcoming Encounters Date Type Department Care Team (Late st Contact Info) Description 01/06/2025 1:30 PM EDT Appointment [facility] [address] [place] [address] Lauren Hancock MD [address] [place] [address] 02/12/2025 10:00 AM EDT Appointment [facility] Cardiac Ultrasound [address] [place] [address] Lauren Hancock MD [address] [place] [address] 03/18/2025 2:00 PM EST Follow-Up [facility] [address] [place] [address] Lauren Hancock MD [address] [place], [place] [phone] documented as of this encounter Visit Diagnoses Not on filedocumented in this encounter Care Teams News Correspondent Relationship Specialty Start Date End Date Darius Tamayo MD [address] [place] [address] PCP - General Gastroenterology 12/22/24 documented as of this encounter
--- OUTSIDE RECORDS SUMMARY | 2025-01-04 14:31 | XMS_ITS | Encounter Summary ---
Author Organization [employer] Address [address] [facility] 7t [place] [address] Care Team Providers Care Pump Tester Name Role Phone Sudha Mitchell Primary Care Provider [phone] Everett Rojas MD Unavailable [phone] Reason for Visit * Reason Comments Med Refill Encounter Details Date Type Department Care Team (Late st Contact Info) Description 09/18/2023 Refill [facility] [address] [place], [place] [phone] Sudha Mitchell ANP [address] [place] [address] Lumbago of lumbar region with sciatica Social [...] 01/08/2025 9:00 AM EDT Clinical Support [facility] MEDICINE [address] [place] [address] Nichole Lucio, MONAE [address] [place] [address] documented as of this encounter Visit Diagnoses Diagnosis Lumbago of lumbar region with sciatica documented in this encounter Care Teams Pump Tester Relationship Specialty Start Date End Date Sudha Mitchell ANP [address] [place] [address] PCP - General Family Medicine 09/29/19 Everett Rojas MD [address] [place] [address] 3rd [place] [address] Cardiology 04/21/24 documented as of this encounter
--- OUTSIDE RECORDS SUMMARY | 2025-01-04 14:31 | XMS_ITS | Encounter Summary ---
Author Organization [employer] Address [address] [place] [address] 7t [place] [address] Care Team Providers Care High School Librarian Name Role Phone Stephen Sudha WEI Primary Care Provider Everett Rojas MD Unavailable [phone] Reason for Visit * Reason Comments Med Refill Encounter Details Date Type Department Care Team (Late st Contact Info) Description 12/30/2023 Refill [facility] MEDICINE [address] [place] [address] Fabi Boudreaux MD [address] [place] [address] Lumbago of lumbar region with sciatica Social [...] Description 01/08/2025 9:00 AM EDT Clinical Support [facility] MEDICINE [address] [place] [address] Nichole Lucio, MONAE [address] [place] [address] documented as of this encounter Visit Diagnoses Diagnosis Lumbago of lumbar region with sciatica documented in this encounter Care Teams High School Librarian Relationship Specialty Start Date End Date Sudha Mitchell ANP [address] [place] [address] PCP - General Family Medicine 09/29/19 Everett Rojas MD [address] [place] [address] 3rd [place] [address] Cardiology 04/21/24 documented as of this encounter
--- OUTSIDE RECORDS SUMMARY | 2025-01-04 14:31 | XMS_ITS | Clinical Summary ---
Author Organization [employer] Address [address] [place] [address] Care Team Providers Care Stove Fitter Name Role Phone Tom Trujillo ERIBERTO Primary Care Provider [phone] Everett Rojas MD Unavailable [phone] Allergies Active Allergy Reactions Criticality Noted Date Comments Rivaroxaban High 03/28/2020 GIB Shellfish Allergy Anaphylaxis High 03/12/2023 Patient reported Medications * This document contains information received from the source organization and may not represent a complete record from that organization. hydroCHLOROthiaz john (HYDRODiuril) 25 MG tablet Take 25 mg by mouth in the morning. 04/16/20 22 Active albuterol (2.5 MG/3ML) 0.083% nebulizer solution 03/15/20 22 Active cholecalciferol (Vitamin D-3) 25 MCG tablet Take 25 mcg by mouth in the morning. 03/15/20 22 Active Diclofenac Sodium 1 % gelIndications:C hronic pain of right knee Apply 2 G up to 4x/d as needed for joint pain 100 g 2 09/19/19 23 Active betamethasone, augmented, (Diprolene) 0.05 % ointmentIndicati ons:Skin [...] use. 2 each 1 03/21/20 23 Active triamcinolone (Kenalog) 0.1 % creamIndications :Venous [...] 12/24/19 24 Active Eliquis 5 MG tablet 12/24/19 24 Active lidocaine (Lidoderm) 5 % patchIndications :Acute pain of right knee Apply 1 patch topically Once per day. 30 patch 3 01/02/20 24 Active Calcium Carb-Cholecalcif nicolle 600-10 MG-MCG tablet TAKE 1 TABLET BY MOUTH TWICE DAILY IN THE MORNING AND AT BEDTIME 180 tablet 3 06/10/19 25 Active montelukast (Singulair) 10 MG tablet TAKE 1 TABLET BY MOUTH AT BEDTIME 90 tablet 3 08/05/19 25 Active Mometasone Furoate (Asmanex HFA) 100 MCG/ACT aerosol INHALE 1 PUFF BY MOUTH TWICE DAILY RINSE MOUTH AFTER USING. 13 g 5 09/11/19 25 Active traMADol (Ultram) 50 MG tabletIndication s:Lumbago of lumbar region with sciatica Take 1 tablet (50 mg) by mouth every 12 (twelve) hours if needed for severe pain. 56 tablet 11/07/19 25 Active zinc sulfate (Zincate) 220 (50 Zn) MG capsule Take by mouth Once per day. 12/26/19 25 025 Active metoprolol tartrate (Lopressor) 50 MG tablet 50 mg. 05/19/19 25 Active atorvastatin (Lipitor) 20 MG tablet Take 20 mg by mouth Once per day. 12/26/19 25 026 Active metoprolol succinate XL (Toprol-XL) 25 MG 24 hr tablet 04/16/20 22 025 Discontin ued(Dose adjustmen t) Active Problems Problem Noted Date Diagnosed Date Adjustment disorder with mixed anxiety and depre ssed mood 10/07/2024 Hepatocellular carcinoma 09/16/2024 Overview (09/16/2024): As seen on MRI 09/04/[address] Tamayo. Pt referred to IR for tx options 09/14/24 by GI. MR/MR abdomen wo/w con IMPRESSION: 1. Hepatic cirrhosis. Masses are identified in segments VIII and I within the liver as described above, compatible with hepatocellular carcinoma Long-term current use of opiate analgesic 2024 [...] symptoms Esophageal varices in cirrhosis 04/16/2023 Overview (10/06/2024): EGDs via [facility] History of Helicobacter pylori infection 023 Overview (04/16/2023): tx'd 10/2021 via [facility] Cirrhosis of liver without ascites 04/16/2023 Overview (10/06/2024): compensated. thought to be d/t CARTWRIGHT vs. HCV. Follows w/ [facility] and had abd MRI to eval liver lesion 07/2022. 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 11/19/2022 Overview (11/19/2022): MRI 01/01/2022 findings copied into 09/18/22 note for reference Thrombocytopenia 03/20/2018 Trigger finger of both hands 03/20/2018 Neoplasm of liver 11/10/2017 Paroxysmal atrial fibrillation 02/07/2016 Atherosclerosis of [place] co ronary artery of [place] heart with stable angina pectoris 11/25/2015 Benign essential hypertension 11/25/2015 Chronic hepatitis C 11/25/2015 Moderate persistent asthma 11/25/2015 Resolved Problems Problem Noted Date Diagnosed Date Resolved Date Mild depression 10/07/2024 10/07/2024 Encounters * This document contains information received from the source organization and may not represent a complete record from that organization. Date Type Department Care Team Description 12/30/2024 Telephone [facility] [address] [place] [address] Nita Mendoza, tail board man Question 12/25/2024 Telephone [facility] [address] [place] [address] Connie Felipe, tail board man Question 12/25/2024 Orders Only [facility] [address] [place] [address] Tom Trujillo ANP Atherosclerosis of [place] coronary artery of [place] heart with stable angina pectoris (CMS/HCC) (Primary Dx) 12/08/2024 Orders Only GENERIC EXTERNAL DATA DEPARTMENT Provider, Generic External Data 11/18/2024 Orders Only [facility] External Provider, [facility] 11/11/2024 Telephone [facility] [address] [place] [address] Tom Trujillo ANP Chart Prep 11/06/2024 Refill [facility] [address] [place] [address] Nichole Lucio, RN Lumbago of lumbar region with sciatica 11/06/2024 Travel 11/06/2024 Telephone [facility] [address] [facility] [place] [address] Tom Trujillo ANP Med Refill 10/26/2024 Orders Only [facility] [address] [facility] [place] [address] Tom Trujillo ANP 10/23/2024 Travel 10/23/2024 Telephone [facility] [address] [place] [address] Nichole Lucio, RN SOLUTION SPECIALIST 10/22/2024 Orders Only GENERIC EXTERNAL DATA DEPARTMENT Provider, Generic External Data 10/09/2024 Telephone [facility] [address] [facility] [place] [address] Kanika Partida RN 10/06/2024 11:00 AM EDT Office Visit [facility] [address] [facility] [place] [address] Tom Trujillo ANP Hepatocellular carcinoma (CMS/HCC) (Primary Dx); Paroxysmal atrial fibrillation (CMS/HCC); Esophageal varices in cirrhosis (CMS/HCC); Benign essential hypertension; Cirrhosis of liver without ascites, unspecified hepatic cirrhosis type (CMS/HCC); Screening mammogram for breast cancer 10/06/2024 Travel from Last 3 Months Immunizations Immunization Administration Dates Next Due Hep B, adult [...] Date Recorded Patient Health Questionnaire-9 Score 7 10/07/2024 Patient Health Questionnaire-9 Score 7 10/07/2024 Last PHQ-9: Questionnaire Data Not on file 0 10/07/2024 Housing Stability Answer Date Recorded What is [...] Answer Date Recorded Patient Health Questionnaire-2 Score 3 10/07/2024 Internet Access Answer Date Recorded Internet Access [...] Sign Reading Time Taken Comments Blood Pressure 140/80 10/06/2024 11:24 AM EDT Pulse 55 10/06/2024 11:24 AM EDT Temperature 36.4 C (97.6 F) 07/06/2024 2:19 PM EST Respiratory Rate 16 10/06/2024 11:24 AM EDT Oxygen Saturation 96% 07/06/2024 2:19 PM EST Inhaled Oxygen Concentration - - Weight 69.9 kg (154 lb) 10/06/2024 11:24 AM EDT Height 147.3 cm (4' 10 ) 10/06/2024 11:24 AM EDT Body Mass Index 32.19 10/06/2024 11:24 AM EDT Plan of Treatment Upcoming Encounters Date Type Department Care Team (Late st Contact Info) Description 01/08/2025 9:00 AM EDT Clinical Support [facility] [address] [place] [address] Nichole Lucio, RN [address] [place] [address] Health Maintenance Due Date Last Done Comments CT Colonography 1955 FIT DNA/Cologuard 1955 FIT 1955 FOBT 1955 Sigmoidoscopy 1955 Hepatitis A Vaccines (1 of 2 - Risk 2-dose series) 1972 RSV Patients and Patients Aged 60 years or older (1 - Risk 60-74 years 1-dose series) 2013 Zoster Vaccines (3 of 3) 01/12/2021 11/17/2020, 04/13 COVID-19 Vaccine (3 - season) 2024 08/16/2020, 07/19/2020 Colonoscopy 10/10/2024 10/10/2021 Colorectal Cancer Screening 10/10/2024 Influenza Vaccine (#1) 2025 , 06/15/2019, 02/20/2018, Additional history exists Alcohol/Substance Use Screening 03/25/2025 03/25/2024 SDOH Screening 06/18/2025 06/18/2024 Depression Screening 10/07/2025 10/07/2024, 10/08/19 25 Mammogram 10/26/2025 10/26/2024, 04/12, 10/31/2021, Additional history exists Tobacco Screening 11/01/2025 11/01/2024 DTaP/Tdap/Td Vaccines (3 - Td or Tdap) 06/27/2028 06/27/2018, 05/08/2016 Lipid Panel 09/15/2028 09/16/2023 Pneumococcal Vaccine: 50+ Years Completed 11/28/2021, 11/17/2020, 05/08/2016 Hepatitis B Vaccines Completed 08/24/2024, 02/25/2024, 01/28/2024, Additional history exists HIB Vaccines Aged Out No longer eligi ble based on patient's age to complete this topic HPV Vaccines Aged Out No longer eligi ble based on patient's age to complete this topic IPV Vaccines Aged Out No longer eligi ble based on patient's age to complete this topic Meningococcal B Vaccine Aged Out No l onger eligible based on patient's age to complete [...] Procedure Name Priority Date/Time Associated Diagnosis Comments CTA CHEST PE PROTOCAL Routine 12/08/2024 2:57 PM EDT HIGH SENSITIVITY TROPONIN I Routine 12/08/2024 11:52 AM EDT B TYPE NATRIURETIC PEPTIDE (BNP) Routine 12/08/2024 11:52 AM EDT BASIC METABOLIC PANEL Routine 12/08/2024 11:52 AM EDT HEPATIC FUNCTION PANEL Routine 11:52 AM EDT CBC WITH AUTO DIFFERENTIAL Routine 12/08/2024 11:52 AM EDT PROTHROMBIN TIME-INR Routine 12/08/2024 11:52 AM EDT SARS COV2/INFLUENZA A/B AND RSV RNA QL NAAT Routine 12/08/2024 11:52 AM EDT XR CHEST 2 VIEWS Routine 12/08/2024 11:[address] CHEST W CONTRAST Routine 11/18/2024 1 1:00 AM EDT XR LUMBAR SPINE 2-3 VIEWS Routine 11/18/2024 10:30 AM EDT Acute midline low back pain with right-sided sciatica BI MAMMOGRAM SCREENING TOMOSYNTHESIS BILATERAL Routine 10/26/2024 1:20 PM EDT HEPATITIS C VIRAL RNA, QUANTITATIVE, REAL-TIME PCR Routine 10/22/2024 8:17 AM EDT COMPREHENSIVE METABOLIC PANEL Routine 10/22/2024 8:17 AM EDT PROTHROMBIN TIME-INR Routine 10/22/2024 8:17 AM EDT CBC WITH AUTO DIFFERENTIAL Routine 10/22/2024 8:17 AM EDT LIPID PANEL, STANDARD Routine 09/16/2023 9:41 AM EDT Atherosclerosis of [place] coronary artery of [place] heart with stable angina pectoris (CMS/HCC) HM COLONOSCOPY Routine 10/10/2021 from Last 3 Months or Most Recently Relevant to Health Maintenance Results * CTA Chest PE Protocal (12/08/2024 2:57 PM EDT) Anatomical Region Laterality Modality Body, Chest Computed Tomogra phy 12/08/2024 2:57 PM EDT Narrative 12/08/2024 3:41 PM EDT [address] [address] [address] Scan Report Signed Patient: Walt Rajan MR #: [id number] : 1955 Acct:[id number] Age/Sex: 69 / F ADM Date: 12/08/24 Loc: .ED Attending Dr: Ordering Physician: Evan Keys Date of Service: 12/08/24 Procedure(s): CT angio chest PE protocol Accession Number(s): [id number] cc: Evan Keys; TOM TRUJILLO NP Report Number: [id number]: Total DLP = 187.00 mGy-cm EXAMINATION: CT ANGIOGRAM CHEST CLINICAL INFORMATION: Hypoxia COMPARISON: November 18, 2024 TECHNIQUE: Multiple axial images were obtained through the chest after the administration of 65 mL of Omnipaque 350 intravenous contrast. Extensive vascular post-processing including two-dimensional and three-dimensional reformatted images were created and reviewed on an independent workstation. SmartPrep technique This CT examination was performed using dose optimization techniques as appropriate, variously including the following: *Automated exposure control *Adjustment of mA and/or kV according to patient size (this includes techniques or standardized protocols for targeted exams where dose is matched to indication/reason for exam; i.e. extremities or head) *Use of iterative reconstruction technique DLP: 167 mGy centimeter. FINDINGS: The main pulmonary artery or its main branches and subsegmental pulmonary branches are patent without intraluminal filling defects. No aneurysm or dissection, thoracic aorta. Mixed plaques in the thoracic aortic arch. Calcified plaques in the coronary arteries. No pericardial effusion. No pneumothorax. No pleural effusion. Subtle pulmonary patchy groundglass. No bronchiectasis. No honeycombing. No acute rib fractures. Scapula and sternum are grossly intact. The intra-abdominal organs demonstrate multifocal partially calcified/posttreatment hyperdensity lesions throughout the right hepatic lobe. There is a nodular surface of the liver. The bulky calcific/hyperdense lesion in the caudate lobe. Contracted gallbladder with cholelithiasis. Multilevel spondylosis without acute fracture or gross listhesis. CT/CT angio chest PE protocol IMPRESSION: No acute pulmonary artery emboli. No aneurysm or dissection thoracic aorta. Mild interstitial lung edema in the correct clinical settings. Probable the treated multiple liver lesions. Coronary artery disease and atherosclerosis disease. Fleischner guidelines were followed. Electronically signed by: Slim Gómez MD 12/08/2024 03:39 PM EDT Dictated By: Slim Torres MD Signed By: <Electronically signed by Slim Mendoza MD in OV> 12/08/24 1539 DD/ 1457 TD/TT: 12/08/24 1531 Professor Computer Science: Procedure Note Donotuseinterpreter, Image - 12/08/[address] [place] [address] [address] Scan Report Signed Patient: Kenyon Rajan #: [id number] : 4Acct:[id number] Age/Sex: 69 / FADM Date: 12/08/24 Loc: HO.ED Attending Dr: Ordering Physician: Evan Keys Date of Service: 12/08/24 Procedure(s): CT angio chest PE protocol Accession Number(s): [id number] cc: Evan Keys; TOM TRUJILLO NP Report Number: [id number]: Total DLP = 187.00 mGy-cm EXAMINATION: CT ANGIOGRAM CHEST CLINICAL INFORMATION: Hypoxia COMPARISON: November 18, 2024 TECHNIQUE: Multiple axial images were obtained through the chest after the administration of 65 mL of Omnipaque 350 intravenous contrast. Extensive vascular post-processing including two-dimensional and three-dimensional reformatted images were created and reviewed on an independent workstation. SmartPrep technique This CT examination was performed using dose optimization techniques as appropriate, variously including the following: *Automated exposure control *Adjustment of mA and/or kV according to patient size (this includes techniques or standardized protocols for targeted exams where dose is matched to indication/reason for exam; i.e. extremities or head) *Use of iterative reconstruction technique DLP: 167 mGy centimeter. FINDINGS: The main pulmonary artery or its main branches and subsegmental pulmonary branches are patent without intraluminal filling defects. No aneurysm or dissection, thoracic aorta. Mixed plaques in the thoracic aortic arch. Calcified plaques in the coronary arteries. No pericardial effusion. No pneumothorax. No pleural effusion. Subtle pulmonary patchy groundglass. No bronchiectasis. No honeycombing. No acute rib fractures. Scapula and sternum are grossly intact. The intra-abdominal organs demonstrate multifocal partially calcified/posttreatment hyperdensity lesions throughout the right hepatic lobe. There is a nodular surface of the liver. The bulky calcific/hyperdense lesion in the caudate lobe. Contracted gallbladder with cholelithiasis. Multilevel spondylosis without acute fracture or gross listhesis. CT/CT angio chest PE protocol IMPRESSION: No acute pulmonary artery emboli. No aneurysm or dissection thoracic aorta. Mild interstitial lung edema in the correct clinical settings. Probable the treated multiple liver lesions. Coronary artery disease and atherosclerosis disease. Fleischner guidelines were followed. Electronically signed by: Slim Gómez MD 12/08/2024 03:39 PM EDT RP Dictated By: Slim Torres MD Signed By: <Electronically signed by Slim Mendoza MDin OV> 12/08/24 1539 DD/ 1457 TD/TT: 12/08/24 1531 Professor Computer Science: [facility] External Provider IMG CT PROCEDURES Final Result * High Sensitivity Troponin I (12/08/2024 11:52 AM EDT) Pathologist [facility] TROPONIN I HIGH SENSITIVITY 8.5 <3.5 - 17.0 ng/L [facility] Comment:The Edwards high sens itivity Troponin-I results should beused in conjunction with other diagnostic information suchas ECG, clinical observations and information, and patientsymptoms to aid in the diagnosis of [place]. 12/08/2024 11:5 2 AM EDT 12/08/2024 11:55 AM EDT Generic External Data Provider LAB BLOOD ORDERAB LES Final Result [facility] [address] [place] [phone] * SARS-CoV-2 RNA, Influenza A/B, and RSV RNA, Ql NAAT (12/08/2024 11:52 AM EDT) Influenza A PCR NEGATIVE Negative [facility] Influenza B PCR NEGATIVE Negative [facility] Resp Syncy Virus RNA Qual PCR NEGATIVE Negative [facility] SARS COV2 PCR NEGATIVE Negative [facility] Comment:All test results mus t be correlated with clinical findings.Negative results do not preclude SARS-CoV2, influenza Avirus, influenza B virus and/or RSV infectionand should not be used as the sole basis for treatment orother patient management decisions. Negative results must becombined with clinical observations, patient history, andepidemiological information.This test has not been evaluated for monitoring treatment ofinfection.This test has been authorized by the FDA under an EmergencyUse Authorization (EUA) for use by authorized laboratories.Testing performed on the [employer] GeneXpert utilizingreal-time RT-PCR.All SARS CoV2 and positive influenza A/B results arereported to [facility]. 12/08/2024 11:5 2 AM EDT 12/08/2024 11:55 AM EDT us Generic External Data Provider LAB MICROBIOLOGY - GENERAL ORDERABLES Final Result [facility] [address] [place] [address] [phone] * (ABNORMAL) CBC auto differential (12/08/2024 11:52 AM EDT) Only the most recent of2 resultswithin the time period is included. White Blood Count 3.6(L) 4.8 - 10.8 X10*3/uL [facility] Red Blood Count 3.84(L) 4.20 - 5.50 X10*6/uL [facility] Hemoglobin 11.6(L) 12.0 - 16.0 g/dl [facility] Hematocrit 34.1(L) 37.0 - 47.0 % [facility] Mean Corpuscular Volume 88.8 80.0 - 98.0 fL [facility] Mean Corpuscular Hemoglobin 30.2 27.0 - 33.0 pg [facility] Mean Corpuscular HGB Conc 34.0 31.0 - 35.0 g/dl [facility] Red Cell Distribution Width 14.4 11.0 - 16.0 % [facility] Platelet Count 170 160 - 400 X10*3/uL [facility] Mean Platelet Volume 9.5 9.4 - 12.3 fL [facility] Neutrophils Percent Auto 68.6 45 - 73 % [facility] Imm Gran Pct Auto 0.3 0.0 - 0.4 % [facility] Lymphocytes Percent Auto 20.7 20 - 40 % [facility] Monocytes Percent Auto 8.1 2 - 11 % [facility] Eosinophils Percent Auto 1.7 0 - 4 % [facility] Basophils Percent Auto 0.6 0 - 2 % [facility] NRBC Pct Auto 0.0 0.0 - 0.2 /100WBC [facility] Neutrophils Absolute Auto 2.5 2.0 - 8.3 x10*3/uL [facility] Imm Gran Abs Auto 0.01 0.00 - 0.03 X10*3/uL [facility] Lymphocytes Absolute Auto 0.7(L) 1.2 - 4.9 X10*3/uL [facility] Monocytes Absolute Auto 0.3 0.1 - 1.2 X10*3/uL [facility] Eosinophils Absolute Auto 0.1 0.0 - 0.4 X10*3/uL [facility] Basophils Absolute Auto 0.0 0.0 - 0.2 X10*3/uL [facility] NRBC Abs Auto 0.000 0.0 - 0.012 X10*3/uL [facility] 12/08/2024 11:5 2 AM EDT 12/08/2024 11:55 AM EDT us Generic External Data Provider LAB BLOOD ORDERAB LES Final Result [facility] [address] [place] [phone] [phone] * (ABNORMAL) Prothrombin Time-INR (12/08/2024 11:52 AM EDT) Only the most recent of2 resultswithin the time period is included. Prothrombin Time 23.4(H) 10.9 - 12.4 SEC [facility] INTERNATIONAL NORM RATIO 2.0(H) 0.9 - 1.1 [facility] Comment:INTERNATIONAL NORMAL IZED RATIO (INR) REFERENCE RANGES Reference RangeFor patients not on anticoagulant therapy: 0.9 - 1.1INR ranges for oral anticoagulanttherapy:For prevention and treatment of venous thrombosis and pulmonary embolism: 2.0 - 3.0For acute myocardial infarction with aspirin therapy: 2.0 - 3.0For acute myocardial infarction without aspirin therapy: 3.0 - 4.0For patients with mechanical prosthetic heart valves: 2.5 - 3.5 12/08/2024 11:5 2 AM EDT 12/08/2024 11:55 AM EDT Generic External Data Provider LAB BLOOD ORDERAB LES Final Result Performing Organization Address [facility]/ZIP Co de Phone Number [facility] [address] [place] [phone] * B Type Natriuretic Peptide (BNP) (12/08/2024 11:52 AM EDT) Pathologist [facility] B Type Natriuretic Peptide 58 <100 pg/mL [facility] 12/08/2024 11:5 2 AM EDT 12/08/2024 11:55 AM EDT [employer] External Data Provider LAB BLOOD ORDERAB LES Final Result Performing Organization Address [facility] Phone Number [facility] [address] [place] [phone] * (ABNORMAL) Hepatic Function Panel (12/08/2024 11:52 AM EDT) Bilirubin, Total 0.6 0.0 - 1.0 mg/dL [facility] Bilirubin, Direct 0.3 0.0 - 0.5 mg/dL [facility] Aspartate Amino Transferase 36(H) 5 - 31 U/L [facility] Alanine Aminotransferase 36(H) 0 - 31 U/L [facility] Total Protein 7.5 6.5 - 8.0 g/dL [facility] Albumin Level 3.3(L) 3.5 - 5.0 g/dL [facility] Alkaline Phosphatase 84 39 - 117 U/L [facility] 12/08/2024 11:5 2 AM EDT 12/08/2024 11:55 AM EDT us Generic External Data Provider LAB BLOOD ORDERAB LES Final Result [facility] [address] [place] [phone] [phone] * (ABNORMAL) Basic Metabolic Panel (12/08/2024 11:52 AM EDT) Sodium 140 135 - 145 mmol/L [facility] Potassium 3.7 3.3 - 5.1 mmol/L [facility] Chloride 107 96 - 108 mmol/L [facility] Carbon Dioxide 26 22 - 29 mmol/L [facility] Anion Gap 11(L) 12 - 20 [facility] Urea Nitrogen (BUN) 18(H) 9 - 16 mg/dL [facility] Creatinine, Serum 1.00 0.5 - 1.4 mg/dL [facility] Creatinine Clr Calc Pharmacy 42.5 [facility] Comment:Provided height and weight: 149.86 cm,65.771 kg.eGFR (calculated from the MDRD study equation) and eCrCl(calculated from the Cockcroft-Gault equation) are based ondifferent parameters and may not yield comparable results.If eCrCl result is absurd, please check patient'sheight/weight. Estimated Glomerular Filt Rate 55 [facility] Comment:Chronic Kidney Disea se: Estimated GFR < 60 mL/min/1.24h0Khocng Kidney Disease: Estimated GFR < 15 mL/min/1.73m2 Glucose 117(H) 60 - 115 mg/dL [facility] Calcium 9.3 8.4 - 10.2 mg/dL [facility] 12/08/2024 11:5 2 AM EDT 12/08/2024 11:55 AM EDT us Generic External Data Provider LAB BLOOD ORDERAB LES Final Result [facility] [address] [place] [phone] * XR Chest 2 Views (12/08/2024 11:10 AM EDT) Anatomical Region Laterality Modality Chest Radiographic Dawn ging 12/08/2024 11:1 0 AM EDT Narrative 12/08/2024 12:17 PM EDT [address] [address] XRay Report Signed Patient: Walt Rajan MR #: [id number] : 1955 Acct:[id number] Age/Sex: 69 / F ADM Date: 12/08/24 Loc: .ED Attending Dr: Ordering Physician: Destinee Welch CNP Date of Service: 12/08/24 Procedure(s): XR chest 2V Accession Number(s): [id number] cc: Destinee Welch DATA REPORT ANALYST; TOM TRUJILLO NP EXAMINATION: XR CHEST 2 VIEWS HISTORY: shortness of breath COMPARISON: Comparison is made with the prior examination dated 12/29/2023. FINDINGS: PA and lateral views of the chest are submitted. The lungs are expanded and clear. There is no pleural effusion, pneumothorax, or pulmonary vascular congestion. The heart is normal in size. There is degenerative disc disease of the spine. XR/XR chest 2V IMPRESSION: No acute cardiopulmonary abnormality. Electronically signed by: Atul Mejía MD 12/08/2024 12:14 PM EDT Dictated By: Atul Mejía MD Signed By: <Electronically signed by Atul Mejía MD in OV> 12/08/24 1214 DD/ 1110 TD/TT: 12/08/24 1208 Professor Computer Science: Procedure Note Donotuseinterpreter, Image - 12/08/[address] [address] XRay Report Signed Patient: Kenyon Rajan #: [id number] : 1955cct:[id number] Age/Sex: 69 / FADM Date: 12/08/24 Loc: HO.ED Attending Dr: Ordering Physician: Destinee Welch CNP Date of Service: 12/08/24 Procedure(s): XR chest 2V Accession Number(s): [id number] cc: Destinee Welch CNP; TOM TRUJILLO NP EXAMINATION: XR CHEST 2 VIEWS HISTORY: shortness of breath COMPARISON: Comparison is made with the prior examination dated 12/29/2023. FINDINGS: PA and lateral views of the chest are submitted. The lungs are expanded and clear. There is no pleural effusion, pneumothorax, or pulmonary vascular congestion. The heart is normal in size. There is degenerative disc disease of the spine. XR/XR chest 2V IMPRESSION: No acute cardiopulmonary abnormality. Electronically signed by: Atul Mejía MD 12/08/2024 12:14 PM EDT Dictated By: Atul Mejía MD Signed By: <Electronically signed by Atul Mejía MD in OV> 12/08/24 1214 DD/ 1110 TD/TT: 12/08/24 1208 Professor Computer Science: [facility] External Provider IMG XR PROCEDURES Final Result * CT Chest w/ Contrast (11/18/2024 11:00 AM EDT) Anatomical Region Laterality Modality Body, Chest Computed Tomogra phy 11/18/2024 11:0 0 AM EDT Narrative 11/18/2024 11:33 AM EDT [place] [address] CT Scan Report Signed Patient: Walt Rajan MR #: [id number] : 1955 Acct:[id number] Age/Sex: 69 / F ADM Date: 11/18/24 Loc: HO.CT Attending Dr: Darius Tamayo MD Ordering Physician: Darius Tamayo MD Date of Service: 11/18/24 Procedure(s): CT chest w IV con Accession Number(s): [id number] cc: Darius Tamayo MD; TOM TRUJILLO NP Report Number: [id number]: Total DLP = 104.00 mGy-cm EXAMINATION: CT CHEST WITH IV CONTRAST INDICATION: C22.0 - Liver cell carcinoma COMPARISON: There is an is made with the prior examination dated 12/29/2023. TECHNIQUE: Helical CT scan of the chest was performed following administration of intravenous contrast. Coronal and sagittal reformatted images were generated and reviewed. This CT exam was performed with one or more of the following dose reduction techniques: automated exposure control, adjustment of the mA and/or kV according to patient size, use of iterative reconstruction technique. DLP: 104 mGy-cm CHEST: THYROID: The thyroid is unremarkable. LUNGS: There is a 3 mm subpleural nodule in the left upper lobe (series 4, image 33) is without change. The lungs are otherwise clear. MEDIASTINUM: There is no mediastinal lymphadenopathy. IRVING: There is no hilar lymphadenopathy. CARDIOVASCULATURE: The heart is mildly enlarged. There is no pericardial effusion. The thoracic aorta is normal in caliber. DEGREE OF CORONARY CALCIFICATION: moderate PLEURA: There is no pleural effusion. No pneumothorax. MAIN AIRWAYS: The mainstem bronchi and proximal branches are patent. AXILLA: There is no axillary lymphadenopathy. BONES AND SOFT TISSUES: There is degenerative disc disease of the spine. UPPER ABDOMEN: Imaging of the upper abdomen demonstrates a nodular liver contour consistent with cirrhosis. There is a 2.7 cm enhancing mass in segment I and a 2.8 cm enhancing mass in segment VIII as noted on MRI, compatible with hepatocellular carcinoma. There is cholelithiasis. The spleen demonstrates heterogeneous enhancement, likely related to the phase of the contrast bolus. The adrenals are unremarkable. CT/CT chest w IV con IMPRESSION: 1. No definite evidence of metastatic disease in the chest. Stable 3 mm subpleural nodule of the left upper lobe. 2. Cirrhosis of the liver with multiple enhancing masses as noted on MRI, compatible with hepatocellular carcinoma. Electronically signed by: Atul Mejía MD 11/18/2024 11:30 AM EDT RP Dictated By: Atul Mejía MD Signed By: <Electronically signed by Atul Mejía MD in OV> 11/18/24 1130 DD/ 1100 TD/TT: 11/18/24 1117 Professor Computer Science: Procedure Note Donotuseinterpreter, Image - 11/18/[address] [address] [address] Scan Report Signed Patient: Kenyon Rajan #: [id number] : 1955cct:[id number] Age/Sex: 69 / FADM Date: 11/18/24 Loc: HO.CT Attending Dr: Darius Tamayo MD Ordering Physician: Darius Tamayo MD Date of Service: 11/18/24 Procedure(s): CT chest w IV con Accession Number(s): [id number] cc: Darius Tamayo MD; TOM TRUJILLO NP Report Number: [id number]: Total DLP = 104.00 mGy-cm EXAMINATION: CT CHEST WITH IV CONTRAST INDICATION: C22.0 - Liver cell carcinoma COMPARISON: There is an is made with the prior examination dated 12/29/2023. TECHNIQUE: Helical CT scan of the chest was performed following administration of intravenous contrast. Coronal and sagittal reformatted images were generated and reviewed. This CT exam was performed with one or more of the following dose reduction techniques: automated exposure control, adjustment of the mA and/or kV according to patient size, use of iterative reconstruction technique. DLP: 104 mGy-cm CHEST: THYROID: The thyroid is unremarkable. LUNGS: There is a 3 mm subpleural nodule in the left upper lobe (series 4, image 33) is without change. The lungs are otherwise clear. MEDIASTINUM: There is no mediastinal lymphadenopathy. IRVING: There is no hilar lymphadenopathy. CARDIOVASCULATURE: The heart is mildly enlarged. There is no pericardial effusion. The thoracic aorta is normal in caliber. DEGREE OF CORONARY CALCIFICATION: moderate PLEURA: There is no pleural effusion. No pneumothorax. MAIN AIRWAYS: The mainstem bronchi and proximal branches are patent. AXILLA: There is no axillary lymphadenopathy. BONES AND SOFT TISSUES: There is degenerative disc disease of the spine. UPPER ABDOMEN: Imaging of the upper abdomen demonstrates a nodular liver contour consistent with cirrhosis. There is a 2.7 cm enhancing mass in segment I and a 2.8 cm enhancing mass in segment VIII as noted on MRI, compatible with hepatocellular carcinoma. There is cholelithiasis. The spleen demonstrates heterogeneous enhancement, likely related to the phase of the contrast bolus. The adrenals are unremarkable. CT/CT chest w IV con IMPRESSION: 1. No definite evidence of metastatic disease in the chest. Stable 3 mm subpleural nodule of the left upper lobe. 2. Cirrhosis of the liver with multiple enhancing masses as noted on MRI, compatible with hepatocellular carcinoma. Electronically signed by: Atul Mejía MD 11/18/2024 11:30 AM EDT Dictated By: Atul Mejía MD Signed By: <Electronically signed by Atul Mejía MD in OV> 11/18/24 1130 DD/ 1100 TD/TT: 11/18/24 1117 Professor Computer Science: [facility] External Provider IMG CT PROCEDURES Final Result * XR Lumbar Spine 2-3 Views (11/18/2024 10:30 AM EDT) Anatomical Region Laterality Modality Spine, L-spine Radiographic Dawn ging 11/18/2024 10:3 0 AM EDT Narrative 11/18/2024 10:59 AM EDT [address] [address] XRay Report Signed Patient: Walt Rajan MR #: [id number] : 1955 Acct:[id number] Age/Sex: 69 / F ADM Date: 11/18/24 Loc: HO.CT Attending Dr: Darius Tamayo MD Ordering Physician: TRUJILLO,TOM LOADER HELPER Date of Service: 11/18/24 Procedure(s): XR lumbar spine 2-3V Accession Number(s): [id number] cc: TOM TRUJILLO LOADER HELPER EXAMINATION: XR LUMBOSACRAL SPINE CLINICAL INFORMATION: Slip and fall 12/31/23, cont pain COMPARISON: June 27, 2018. TECHNIQUE: AP and lateral views. FINDINGS: Grade 1 anterolisthesis L4-5. Grade 1 retrolisthesis L2-3 and L1-2 levels. Multilevel small marginal osteophyte formation. Endplate sclerosis. Decreased intervertebral disc height at multiple levels. No acute cortical disruption. Facet joint hypertrophy at L4-5 and L5-S1. Vascular calcifications, aorta and iliac arteries. And splenic artery. Punctate calcifications overlapping the right upper quadrant abdomen. Sclerosis and the sacroiliac joints. XR/XR lumbar spine 2-3V IMPRESSION: Multilevel thoracolumbar spondylosis resulting in grade 1 anterolisthesis L4-5 and grade 1 retrolisthesis L1 to and L2-3 levels. Atherosclerosis disease. Probable cholelithiasis. Electronically signed by: Slim Gómez MD 11/18/2024 10:56 AM EDT RP Dictated By: Slim Torres MD Signed By: <Electronically signed by Slim Mendoza MD in OV> 11/18/24 1056 DD/ 1030 TD/TT: 11/18/24 1034 Professor Computer Science: Procedure Note Donotuseinterpreter, Image - 11/18/[address] [address] XRay Report Signed Patient: Kenyon Rajan #: [id number] : 4Acct:[id number] Age/Sex: 69 / FADM Date: 11/18/24 Loc: HO.CT Attending Dr: Darius Tamayo MD Ordering Physician: TOM TRUJILLO NP Date of Service: 11/18/24 Procedure(s): XR lumbar spine 2-3V Accession Number(s): [id number] cc: TOM TRUJILLO LOADER HELPER EXAMINATION: XR LUMBOSACRAL SPINE CLINICAL INFORMATION: Slip and fall 12/31/23, cont pain COMPARISON: June 27, 2018. TECHNIQUE: AP and lateral views. FINDINGS: Grade 1 anterolisthesis L4-5. Grade 1 retrolisthesis L2-3 and L1-2 levels. Multilevel small marginal osteophyte formation. Endplate sclerosis. Decreased intervertebral disc height at multiple levels. No acute cortical disruption. Facet joint hypertrophy at L4-5 and L5-S1. Vascular calcifications, aorta and iliac arteries. And splenic artery. Punctate calcifications overlapping the right upper quadrant abdomen. Sclerosis and the sacroiliac joints. XR/XR lumbar spine 2-3V IMPRESSION: Multilevel thoracolumbar spondylosis resulting in grade 1 anterolisthesis L4-5 and grade 1 retrolisthesis L1 to and L2-3 levels. Atherosclerosis disease. Probable cholelithiasis. Electronically signed by: Slim Gómez MD 11/18/2024 10:56 AM EDT RP Dictated By: Slim Torres MD Signed By: <Electronically signed by Slim Mendoza MDin OV> 11/18/24 1056 DD/ 1030 TD/TT: 11/18/24 1034 Professor Computer Science: Tom Trujillo ANP IMG XR PROCEDURES Final Result * BI Mammogram Screening Tomosynthesis Bilateral (10/26/2024 1:20 PM EDT) Anatomical Region Laterality Modality Breast Bilateral Mammography 10/26/2024 1:20 PM EDT Narrative 11/01/2024 2:28 PM EDT [facility] [address] [place] [address] [place] [address] Mammography Report Signed Patient: Walt Rajan MR #: [id number] : 1955 Acct:[id number] Age/Sex: 69 / F ADM Date: 10/26/24 Loc: HO.MAMMO Attending Dr: Tom Trujillo LOADER HELPER Ordering Physician: TOM TRUJILLO NP Results: 1Negative Date of Service: 10/26/24 Follow Up: 1 Year From Orig inal Mammogram Procedure(s): MM tomosynthesis screening BI Accession Number(s): [id number] cc: TOM TRUJILLO NP EXAMINATION: MM SCREENING DIGITAL BREAST TOMOSYNTHESIS, BILATERAL CLINICAL INFORMATION: Screening. Asymptomatic. COMPARISON: Mammography: Comparison is made with available priors TECHNIQUE: Digital breast mammography with tomosynthesis is performed in both the craniocaudal and mediolateral oblique views along with computer-aided detection (CAD). FINDINGS: There are scattered areas of fibroglandular [...] target due date for their next mammogram. Electronically signed by: Glenna Sierra DO 11/01/2024 02:25 PM EDT Dictated By: Glenna Sierra DO Signed By: <Electronically signed by Glenna Sierra DO in OV> 11/01/24 1425 DD/ 1320 TD/TT: 10/26/24 1338 Professor Computer Science: Procedure Note Donotuseinterpreter, Image - 11/01/2024 [facility] [address] [place] [address] Mammography Report Signed Patient: Sid RajanR #: [id number] : 4Acct:[id number] Age/Sex: 69 / FADM Date: 10/26/24 Loc: LEE Attending Dr: Tom Trujillo NP Ordering Physician: TOM TRUJILLO NPResults: 1Negative Date of Service: 10/26/24Follow Up: 1 Year From Orig inal Mammogram Procedure(s): MM tomosynthesis screening BI Accession Number(s): [id number] cc: TOM TRUJILLO NP EXAMINATION: MM SCREENING DIGITAL BREAST TOMOSYNTHESIS, BILATERAL CLINICAL INFORMATION: Screening. Asymptomatic. COMPARISON: Mammography: Comparison is made with available priors TECHNIQUE: Digital breast mammography with tomosynthesis is performed in both the craniocaudal and mediolateral oblique views along with computer-aided detection (CAD). FINDINGS: There are scattered areas of fibroglandular [...] target due date for their next mammogram. Electronically signed by: Glenna Sierra DO 11/01/2024 02:25 PM EDT Dictated By: Glenna Sierra DO Signed By: <Electronically signed by Glenna Sierra DO in OV> 11/01/24 1425 DD/ 1320 TD/TT: 10/26/24 1338 Professor Computer Science: Tom MATA BI PROCEDURES Edited Result - Final * Hepatitis C Viral RNA, Quantitative, Real-Time PCR (10/22/2024 8:17 AM EDT) Hepatitis C Viral Load <15 NOT DETECTED NOT DETECTED IU/mL [facility] HCV Log PCR <1.18 NOT DETECTED NOT DETECTED Log IU/mL [facility] Comment:For additional infor jacques, please refer tohttp://education.[employer]/faq/DKZ28i8(This link is being provided for informational/educational purposes only.)THIS TEST WAS PERFORMED AT:[facility] [place] [phone] GRIFFIN MD 10/22/2024 8:17 AM EDT 10/22/2024 8:17 AM EDT us Generic External Data Provider LAB BLOOD ORDERAB LES Final Result Performing Organization Address City/[facility]/ZIP Co de Phone Number [facility] [address] [place] [address] [phone] * (ABNORMAL) Comprehensive Metabolic Panel (10/22/2024 8:17 AM EDT) Sodium 142 135 - 145 mmol/L [facility] Potassium 4.0 3.3 - 5.1 mmol/L [facility] Chloride 104 96 - 108 mmol/L [facility] Carbon Dioxide 30(H) 22 - 29 mmol/L [facility] Anion Gap 12 12 - 20 [facility] Urea Nitrogen (BUN) 23(H) 9 - 16 mg/dL [facility] Creatinine, Serum 1.01 0.5 - 1.4 mg/dL [facility] Estimated Glomerular Filt Rate 54 [facility] Comment:Chronic Kidney Disea se: Estimated GFR < 60 mL/min/1.83i6Npmixe Kidney Disease: Estimated GFR < 15 mL/min/1.73m2 Glucose 92 60 - 115 mg/dL [facility] Calcium 9.3 8.4 - 10.2 mg/dL [facility] Bilirubin, Total 0.6 0.0 - 1.0 mg/dL [facility] Aspartate Amino Transferase 34(H) 5 - 31 U/L [facility] Alanine Aminotransferase 37(H) 0 - 31 U/L [facility] Total Protein 7.1 6.5 - 8.0 g/dL [facility] Albumin Level 3.8 3.5 - 5.0 g/dL [facility] Alkaline Phosphatase 42 39 - 117 U/L [facility] 10/22/2024 8:17 AM EDT 10/22/2024 8:17 AM EDT us Generic External Data Provider LAB BLOOD ORDERAB LES Final Result Performing Organization Address [facility]/ZIP Co de Phone Number [facility] [address] [place] [address] [phone] * (ABNORMAL) Lipid Panel, Standard (09/16/2023 9:41 AM EDT) Triglycerides 64 <150 mg/dL [facility] Comment:Desirable Triglyceri de: less than 150 mg/dLBorderline High Triglyceride 150-199 mg/dLHigh Triglyceride: 200-499 mg/dLVery High Triglyceride: greater than or equal to 5OO mg/dL Cholesterol 189 <200 mg/dL [facility] Comment:Desirable Cholestero l: less than 200 mg/dLBorderline High Cholesterol: 200-239 mg/dLHigh Cholesterol: greater than 239 mg/dL LDL Cholesterol Calculated 131(H) <100 mg/dL [facility] Comment:Desirable LDL: less than 100 mg/dLNear Optimal/Above Optimal LDL: 110- 129 mg/dLBorderline High LDL: 130-159 mg/dLHigh LDL: 160-189 mg/dLVery High LDL: greater than or equal to 190 mg/dL HDL Cholesterol 46 >40 mg/dL [facility] Comment:Desirable HDL: great er than 40 mg/dL Note: This HDL assay may give artificially low results in patients with liver disease. Blood Venous blood specimen / Unknown 09/16/2023 9:41 AM EDT 09/16/2023 9:41 AM EDT [facility] LAB BLOOD ORDERABLES Final Resul t [facility] [address] [place] [phone] * Hm Colonoscopy (10/10/2021) Colonoscopy Normal Normal Historical Provider HEALTH MAINTENANCE Final Result from Last 3 Months or Most Recently Relevant to Health Maintenance Insurance [facility] STANDARD Care Teams Stove Fitter Relationship Specialty Start Date End Date Tom Trujillo ANP [address] [place] [phone] PCP - General Family Medicine 09/29/19 Everett Rojas MD [address] [place] [address] 3rd [place] [address] Cardiology 04/21/24
--- OUTSIDE RECORDS SUMMARY | 2025-01-04 14:31 | XMS_ITS | Encounter Summary ---
Author Organization [employer] Address [address] [facility] 7t [place] [address] Care Team Providers Care [employer] Division Manager Name Role Phone Sudha Mitchell Primary Care Provider [phone] Everett Rojas MD Unavailable [phone] Reason for Visit * Reason Onset Date Comments Pre-op Visit 12/20/2023 Encounter Details Date Type Department Care Team ([facility] st Contact Info) Description 12/20/2023 Telephone [facility] MEDICINE [address] [place], [place] [phone] Sudha Mitchell ANP [address] [place] [address] Pre-op Visit Social History Tobacco Use Types [...] [facility] Surgeon's office number: [phone] Surgeon's office fax number: [phone] Contact name: Mara Last office note from surgeon requested: Yes documented in this encounter Plan of Treatment Upcoming Encounters Date Type Department Care Team (Late st Contact Info) Description 01/08/2025 9:00 AM EDT Clinical Support [facility] MEDICINE [address] [place] [address] Nichole Lucio RN [address] [place] [address] documented as of this encounter Visit Diagnoses Not on filedocumented in this encounter Care Teams [employer] Division Manager Relationship Specialty Start Date End Date Sudha Mitchell ANP [address] [place] [address] PCP - General Family Medicine 09/29/19 Everett Rojas MD [address] [place] [address] Drive 3rd Floor [place] [address] Cardiology 04/21/24 documented as of this encounter
--- OUTSIDE RECORDS SUMMARY | 2025-01-04 14:31 | XMS_ITS | Encounter Summary ---
Author Organization [employer] Address [address] [place] [address] 7t [place] [address] Care Team Providers Care Wet Cleaner Machine Name Role Phone Sudha Mitchell Primary Care Provider [phone] Everett Rojas MD Unavailable [phone] Reason for Visit * Reason Onset Date Comments Med Refill 11/23/2022 Encounter Details Date Type Department Care Team (Late st Contact Info) Description 11/23/2022 Telephone [facility] MEDICINE [address] [place] [address] Sudha Mitchell ANP [address] [place] [address] Med Refill Social History Tobacco Use Types [...] 9:00 AM EDT Clinical Support [facility] MEDICINE [address] [place] [address] Nichole Lucio, MONAE [address] [place] [address] documented as of this encounter Visit Diagnoses Not on filedocumented in this encounter Care Teams Wet Cleaner Machine Relationship Specialty Start Date End Date Sudha Mitchell ANP [address] [place] [address] PCP - General Family Medicine 09/29/19 Everett Rojas MD [address] [place] [address] Drive 3rd [place] [address] Cardiology 04/21/24 documented as of this encounter
--- OUTSIDE RECORDS SUMMARY | 2025-01-04 14:31 | XMS_ITS | Encounter Summary ---
Author Organization [employer] Address [address] [facility] 7t [place] [address] Care Team Providers Care Director Of Residence Life Name Role Phone Mitchell Sudha WEI Primary Care Provider [phone] Everett Rojas MD Unavailable [phone] Reason for Visit * Reason Onset Date Comments Medication Question 12/30/2024 Encounter Details Date Type Department Care Team ([facility] st Contact Info) Description 12/30/2024 Telephone [facility] MEDICINE [address] [place] [address] Nita Mendoza, RN [address] [place] [address] Medication Question Social History Tobacco Use Types Packs/Day Years [...] * Telephone Encounter - ERIBERTO Woodard - 12/30/2024 4:33 PM EDT Thank you! So they'll put it in her next box? * Telephone Encounter - Nita Mendoza RN - 12/30/2024 4:15 PM EDT Telephone call placed to pharmacy medbox team. They reported that pt wants atorvastatin 20mg in hermedbox for next month (there is a note on her chart to add it). However, she has been getting it martha separate pill bottle every month up until now. Reports she has been consistently filling it and that it is Rxd by Lauren Hancock MD. Please confirm w pt has atorvastatin 20mg for cholesterol, I can see o med list but not in dispense history. Should be on statin for atherosclerosis (plaque in arteries) as this helps stabilize plaque and decrease risk for NV/stroke. documented in this encounter Plan of Treatment Upcoming Encounters Date Type Department Care Team (Late st Contact Info) Description 01/08/2025 9:00 AM EDT Clinical Support [address] [address] Nichole Lucio, MONAE [address] [place] [address] documented as of this encounter Visit Diagnoses Not on filedocumented in this encounter Additional Health Concerns Assessment Noted Time PHQ-9 Depression Total Score: 7 10/08/19 25 7:52 AM EDT documented as of this encounter Care Teams Director Of Residence Life Relationship Specialty Start Date End Date Sudha Mitchell ANP [address] [place] [address] PCP - General Family Medicine 09/29/19 Everett Rojas MD [address] [place] [address] 3rd [place] [address] Cardiology 04/21/24 documented as of this encounter
--- OUTSIDE RECORDS SUMMARY | 2025-01-04 14:31 | XMS_ITS | Encounter Summary ---
Author Organization [employer] Address [address] [facility] 7t [place] [address] Care Team Providers Care Medicare Biller Name Role Phone Sudha Mitchell Primary Care Provider [phone] Everett Rojas MD Unavailable [phone] Reason for Visit * Reason Onset Date Comments Med Refill 11/06/2024 Encounter Details Date Type Department Care Team ([facility] st Contact Info) Description 11/06/2024 Telephone [facility] MEDICINE [address] [place] [address] Sudha Mitchell ANP [address] [place] [address] Med Refill Social History Tobacco Use Types [...] encounter Miscellaneous Notes * Telephone Encounter - Kimmy Zhu - 11/06/2024 11:28 AM EDT TC from pt requesting medication refill. Medications needing refill : traMADol (Ultram) 50 MG tablet To be sent to: [facility] - [place], [place] - [address] [place] [address] documented in this encounter Plan of Treatment Upcoming Encounters Date Type Department Care Team ([facility] st Contact Info) Description 01/08/2025 9:00 AM EDT Clinical Support [facility] MEDICINE [address] [place] [address] Nichole Lucio RN [address] [place] [address] documented as of this encounter Visit Diagnoses Not on filedocumented in this encounter Additional Health Concerns Assessment Noted Time PHQ-9 Depression Total Score: 7 10/08/19 25 7:52 AM EDT documented as of this encounter Care Teams Medicare Biller Relationship Specialty Start Date End Date Sudha Mitchell ANP [address] [place] [address] PCP - General Family Medicine 09/29/19 Everett Rojas MD [address] 3rd [place] [address] Cardiology 04/21/24 documented as of this encounter
--- OUTSIDE RECORDS SUMMARY | 2025-01-04 14:31 | XMS_ITS ---
Author Organization [facility] Address [address] [place] [address] Care Team Providers Care Weather Reporter Name Role Phone Darius Tamayo MD Primary Care Provider [phone] Transplant Episode Liver Candidate [facility] ([place], [place]) - COUNTS INCLUDE 234 BEDS AT [facility] Evaluation began on 12/22/2024 Marked as Active on 12/22/2024 Reason: Workup Liver CoordinatorSabrina Dahl RN Phone: N/A Fax: N/A Email: N/A Scores Score Value Updated Expires Exceptions/Jeannie sons CPRA Not available MELD (Calc) 9 12/22/2024 [place] Organ Diagnosis Organ Primary Contributory Liver Primary Liver Malign kary: Hepatoma (HCC) and Cirrhosis 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) Care Team Name Role Phone Fax Email Sabrina Dahl RN Liver Coordinator N/A N/A N/A Lauren Hancock MD [employer] [phone] [email or web address] [email or web address] Darius Tamayo MD Referring Physician [phone] Events Pre-Transplant Referred: 12/01/2024 Evaluation began: 12/22/2024 Appointments (12/04/2024 - 02/04/2025) When With Visit Type Description 12/22/2024 Transplant - Mick Dahl Transplant Evaluation Visit Encounter for pre-transplant evaluation for liver transplant (Primary Dx) 12/22/2024 Transplant - Fawn Hancock Transplant Evaluation Visit Hepatocellular carcinoma (HCC) (Primary Dx); Metabolic dysfunction-associated steatohepatitis (MASH); Chronic hepatitis C without hepatic coma (HCC); 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
--- OUTSIDE RECORDS SUMMARY | 2025-01-04 14:31 | XMS_ITS | Encounter Summary ---
Author Organization [employer] Address [address] [place] [address] [address] [place] [address] Care Team Providers Care Home Health Care Coordinator Name Role Phone Sudha Mitchell Primary Care Provider Everett Rojas MD Unavailable [phone] Reason for Visit * Reason Comments Med Refill Encounter Details Date Type Department Care Team (Late st Contact Info) Description 01/22/2023 Refill [facility] [address] [place] [address] Sudha Mitchell ANP [address] [place] [address] Lumbago of lumbar region with sciatica Social [...] Description 01/08/2025 9:00 AM EDT Clinical Support [facility] [address] [place] [address] Nichole Lucio RN [address] [place], [place] [phone] documented as of this encounter Visit Diagnoses Diagnosis Lumbago of lumbar region with sciatica documented in this encounter Care Teams Home Health Care Coordinator Relationship Specialty Start Date End Date Sudha Mitchell ANP [address] [place] [id number] PCP - General Family Medicine 09/29/[address] [place] [address] Cardiology 04/21/24 documented as of this encounter
--- OUTSIDE RECORDS SUMMARY | 2025-01-04 14:31 | XMS_ITS | Encounter Summary ---
Author Organization [employer] Address [address] [place] [address] [address] [place] [address] Care Team Providers Care Elementary Reading Tutor Name Role Phone Sudha Mitchell Primary Care Provider [phone] Everett Rojas MD Unavailable [phone] Reason for Visit * Reason Comments Med Refill Encounter Details Date Type Department Care Team (Late st Contact Info) Description 08/14/2022 Refill [facility] MED[facility]INE [address] [place] [id number] [place] [facility] [address] [place] [address] Lumbago of lumbar region with sciatica Social [...] Description 01/08/2025 9:00 AM EDT Clinical Support [facility] [address] [place] [id number] Nichole Lucio RN [address] [place] [address] documented as of this encounter Visit Diagnoses Diagnosis Lumbago of lumbar region with sciatica documented in this encounter Care Teams Elementary Reading Tutor Relationship Specialty Start Date End Date Sudha Mitchell ANP [address] [place] [id number] PCP - General Family Medicine 09/29/19 Everett Rojas MD [address] [place] [address] 3rd [place] [address] Cardiology 04/21/24 documented as of this encounter
--- OUTSIDE RECORDS SUMMARY | 2025-01-04 14:31 | XMS_ITS | Encounter Summary ---
Author Organization [employer] Address [address] [facility] [address] [place] [address] Care Team Providers Care Lead Sales Consultant Name Role Phone Sudha Mitchell Primary Care Provider [phone] Everett Rojas MD Unavailable [phone] Reason for Visit * Reason Comments Med Refill Encounter Details Date Type Department Care Team (Late st Contact Info) Description 03/23/2024 Refill [facility] [address] [place], [place] [phone] Sudha Mitchell ANP [address] [place] [address] Lumbago of lumbar region with sciatica Social [...] 9:00 AM EDT Clinical Support [facility] [address] [place] [address] Nichole Lucio RN [address] [place] [address] documented as of this encounter Visit Diagnoses Diagnosis Lumbago of lumbar region with sciatica documented in this encounter Care Teams Lead Sales Consultant Relationship Specialty Start Date End Date Sudha Mitchell ANP [address] [place] [address] PCP - General Family Medicine 09/29/19 Everett Rojas MD [address] [place] [address] 3rd [place] [address] Cardiology 04/21/24 documented as of this encounter
--- OUTSIDE RECORDS SUMMARY | 2025-01-04 14:31 | XMS_ITS | Clinical Summary ---
Author Organization [facility] Address [address] [place] [address] Care Team Providers Care Steam Presser Name Role Phone Darius Tamayo MD Primary Care Provider [phone] Allergies Active Allergy Reactions Criticality Noted Date Comments Rivaroxaban GI bleeding High 03/28/2020 GIB Shellfish Derived Anaphylaxis High 03/12/2023 Patient reported Medications calcium carbonate-vitam in D3 600 mg-10 mcg (400 unit) per tablet Take 2 tablets by mouth 2 times a day. 5 Active Eliquis 5 mg tablet Take 5 mg by mouth every 12 hours. 5 Active cholecalciferol (VITAMIN D3) 25 mcg (1,000 unit) tablet Take 1,000 Units by mouth once a day. 5 Active hydroCHLOROthia zide (HYDRODIURIL) 25 mg tablet 25 mg once a day. 5 Active metoprolol tartrate (LOPRESSOR) 50 mg tablet Take 50 mg by mouth 2 times a day. 5 Active montelukast (SINGULAIR) 10 mg tablet Take 10 mg by mouth at bed time. at bedtime. 5 Active traMADoL (ULTRAM) 50 mg tablet Take 50 mg by mouth every 12 hours as needed for pain. 5 Active lidocaine (LIDODERM) 5% patch Apply 1 patch topically to the affected area daily. 4 Active MOMETASONE FUROATE, BULK, MISC 2 Inhalations as needed. Active vitamin A 3,000 mcg (10,000 unit) capsule Take 1 capsule (10,000 Units total) by mouth once a day. 30 capsule 2 5 03/25/20 25 Active atorvastatin (LIPITOR) 20 mg tablet Take 1 tablet (20 mg total) by mouth once a day. 30 tablet 11 5 12/26/19 26 Active zinc sulfate (ZINCATE) 50 mg zinc (220 mg) capsule Take 1 capsule (50 mg of elemental zinc total) by mouth once a day. 30 capsule 5 01/25/20 25 Active Encounters Date Type Department Care Team Description 12/25/2024 Results Follow-Up [facility] [address] [place] [id number] Sabrina Dahl RN 12/22/2024 1:00 PM EDT Office Visit [facility] [address] [place] [phone] Lauren Hancock MD Hepatocellular carcinoma (HCC) (Primary Dx); Metabolic dysfunction-associated steatohepatitis (MASH); Chronic hepatitis C without hepatic coma (HCC); 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) 12/22/2024 12:00 PM EDT Evaluation [facility] [address] [place] [phone] Sabrina Dahl RN Encounter for pre-transplant evaluation for liver transplant (Primary Dx) 12/22/2024 Education [facility] [address] [place] [address] [phone] Sabrina Dahl RN 12/22/2024 Orders Only [facility] [address] [place] [address] [phone] Sabrina Dahl, RN Encounter for pre-transplant evaluation for liver transplant (Primary Dx); Metabolic dysfunction-associated steatohepatitis (MASH) 12/22/2024 Orders Only [facility] [address] [place] [address] [phone] Sabrina Dahl, RN Encounter for pre-transplant evaluation for liver transplant (Primary Dx) 12/02/2024 Telephone [facility] [address] [place] [address] Sabrina Dahl RN 12/02/2024 Orders Only [facility] [address] [place] [address] ProviderCem MD 12/01/2024 Orders Only [facility] [address] [place] [phone] Provider, MD Cem from Last 3 Months Social History Tobacco Use Types Packs/Day Years Used Date Smoking Tobacco: Former Cigarettes Smokeless Tobacco: Never Tobacco Cessation:Counseling Given: Not Answered Alcohol Use Standard Drinks/Week Comments Never 0 (1 standard drink = 0.6 oz pur e alcohol) Comments Unknown Sex and Gender Information Value Date Recorded Sex Assigned at Female 12/22/2024 11:36 AM EDT Legal Sex Female 4:32 PM EDT Gender Identity Not on file Sexual Orientation Not on file Last Filed Vital Signs Vital Sign Reading Time Taken Comments Blood Pressure 136/80 12/22/2024 1:01 PM EDT Pulse 51 12/22/2024 1:01 PM EDT Temperature 36.6 C (97.9 F) 12/22/2024 1:01 PM EDT Respiratory Rate 16 12/22/2024 1:01 PM EDT Oxygen Saturation 97% 12/22/2024 1:01 PM EDT Inhaled Oxygen Concentration - - Weight 66.4 kg (146 lb 6.2 oz) 12/22/2024 1:01 P M EDT Height 148.5 cm (4' 10.47 ) 12/22/2024 1:01 PM E DT Body Mass Index 30.11 12/22/2024 1:01 PM EDT Plan of Treatment Upcoming Encounters Date Type Department Care Team (Late st Contact Info) Description 01/06/2025 1:30 PM EDT Appointment [address] [address] Lauren Hancock MD [address] [place] [address] 02/12/2025 10:00 AM EDT Appointment [facility] Cardiac Ultrasound [address] [place] [address] Lauren Hancock MD [address] [place] [address] 03/18/2025 2:00 PM EST Follow-Up [facility] [address] [place] [address] Lauren Hancock MD [address] [place] [address] Health Maintenance Due Date Last Done Comments Cologuard 1955 Colon Cancer Screening 1955 Colonoscopy 1955 FOBT / Fit Test 1955 Sigmoidoscopy 1955 RSV Vaccine (60+ years old a nd patients) (1 - Risk 60-74 years 1-dose series) 2013 Mammogram 11/23/2019 11/22/2017 COVID-19 Vaccine (3 - Modern a risk series) 09/13/2020 08/16/2020, 07/19/2020 Zoster Vaccines (2 of 2) 01/12/2021 11/17/2020, 04/13 Hepatitis B Vaccines (3 of 3 - Risk 3-dose series) 04/21/2024 02/25/2024, 01/28/2024, 01/22/2022 Depression Screening and Follow-Up 05/13/2024 Health Care Proxy Review 05/13/2024 Social Drivers of Health Elizabeth ual Screening 05/13/2024 Influenza Vaccine (#1) 2025 , 06/15/2019, 02/20/2018, Additional history exists CT Lung Cancer Screening (Baseline) 11/18/2025 11/18/2024 DTaP,Tdap,and Td Vaccines (3 - Td or Tdap) 06/27/2028 06/27/2018, 05/08/2016 Pneumococcal Vaccine: 50+ Years Completed 11/28/2021, 11/17/2020, 05/08/2016 Osteoporosis Screening Completed 06/09/2024 Alcohol/Substance Use Screening Completed Procedures * Due to [place] state law, this organization might not be sharing negative HIV tests. Procedure Name Priority Date/Time Associated Diagnosis Comments COMPREHENSIVE DRUG SCREEN, URINE Routine 12/22/2024 2:34 PM EDT Encounter for pre-transplant evaluation for liver transplant HEPATITIS C RNA, QUANTITATIVE, PCR Routine 12/22/2024 2:14 PM EDT Encounter for pre-transplant evaluation for liver transplant ETHANOL Routine 12/22/2024 2:14 PM EDT Encounter for pre-transplant evaluation for liver transplant [id number] (AAT) PHENOTYPE Routine 12/22/2024 2:14 PM EDT Encounter for pre-transplant evaluation for liver transplant HEPATOCELLULAR CARCINOMA PANEL -[id number] Routine 12/22/2024 2:14 PM EDT Encounter for pre-transplant evaluation for liver transplant STEPHON SCREEN, IFA, W/REFLEX TO TITER & PATTERN Routine 12/22/2024 2:14 PM EDT Encounter for pre-transplant evaluation for liver transplant BILIRUBIN, DIRECT Routine 12/22/2024 2:1 4 PM EDT Encounter for pre-transplant evaluation for liver transplant CYSTATIN C WITH GLOMERULAR FILTRATION RATE, ESTIMATED (EGFR)-[id number] Routine 12/22/2024 2:14 PM EDT Encounter for pre-transplant evaluation for liver transplant MITOCHONDRIAL ANTIBODY W/REFLEX Routine 12/22/2024 2:14 PM EDT Encounter for pre-transplant evaluation for liver transplant CBC AUTO DIFFERENTIAL Routine 12/22/2024 2:14 PM EDT Encounter for pre-transplant evaluation for liver transplant LIPID PANEL Routine 12/22/2024 2:14 PM EDT Encounter for pre-transplant evaluation for liver transplant CERULOPLASMIN Routine 12/22/2024 2:14 PM EDT Encounter for pre-transplant evaluation for liver transplant COMPREHENSIVE METABOLIC PANEL Routine 12/22/2024 2:14 PM EDT Encounter for pre-transplant evaluation for liver transplant CYTOMEGALOVIRUS ANTIBODY, IGG Routine 12/22/2024 2:14 PM EDT Encounter for pre-transplant evaluation for liver transplant EMMA-DIETZ VIRUS VCA, IGG Routine 12/22/2024 2:14 PM EDT Encounter for pre-transplant evaluation for liver transplant FERRITIN Routine 12/22/2024 2:14 PM EDT Encounter for pre-transplant evaluation for liver transplant HEMOGLOBIN A1C Routine 12/22/2024 2:14 PM EDT Encounter for pre-transplant evaluation for liver transplant HEPATITIS A ANTIBODY, TOTAL Routine 12/22/2024 2:14 PM EDT Encounter for pre-transplant evaluation for liver transplant HEPATITIS B CORE ANTIBODY, TOTAL Routine 12/22/2024 2:14 PM EDT Encounter for pre-transplant evaluation for liver transplant HEPATITIS B SURFACE ANTIGEN W/CONFIRMATION Routine 12/22/2024 2:14 PM EDT Encounter for pre-transplant evaluation for liver transplant HEPATITIS B SURFACE ANTIBODY Routine 12/22/2024 2:14 PM EDT Encounter for pre-transplant evaluation for liver transplant HEPATITIS C ANTIBODY W/REFLEX TO HCV RNA, QUANTITATIVE PCR Routine 12/22/2024 2:14 PM EDT Encounter for pre-transplant evaluation for liver transplant HERPES SIMPLEX VIRUS 1&2 ANTIBODY, IGG Routine 12/22/2024 2:14 PM EDT Encounter for pre-transplant evaluation for liver transplant IRON SATURATION Routine 12/22/2024 2:14 PM EDT Encounter for pre-transplant evaluation for liver transplant MAGNESIUM Routine 12/22/2024 2:14 PM EDT Encounter for pre-transplant evaluation for liver transplant MMR PANEL (MEASLES, MUMPS, RUBELLA), IGG Routine 12/22/2024 2:14 PM EDT Encounter for pre-transplant evaluation for liver transplant PHOSPHATIDYLETHANOL-ARU [id number] Routine 12/22/2024 2:14 PM EDT Encounter for pre-transplant evaluation for liver transplant PHOSPHORUS Routine 12/22/2024 2:14 PM EDT Encounter for pre-transplant evaluation for liver transplant PROTEIN ELECTROPHORESIS W/REFLEX TO IMMUNOFIXATION, SERUM Routine 12/22/2024 2:14 PM EDT Encounter for pre-transplant evaluation for liver transplant PROTIME-INR Routine 12/22/2024 2:14 PM EDT Encounter for pre-transplant evaluation for liver transplant PTT Routine 12/22/2024 2:14 PM EDT Encounter for pre-transplant evaluation for liver transplant QUANTIFERON-TB GOLD PLUS, 1 [id number] Routine 12/22/2024 2:14 PM EDT Encounter for pre-transplant evaluation for liver transplant HIV-1/2 ANTIGEN/ANTIBODIES 4TH GENERATION W/REFLEX Routine 12/22/2024 2:14 PM EDT Encounter for pre-transplant evaluation for liver transplant RPR (DIAGNOSIS) W/REFLEX TO TITER & TPPA [id number] Routine 12/22/2024 2:14 PM EDT Encounter for pre-transplant evaluation for liver transplant SMOOTH MUSCLE ANTIBODY SCREEN W/REFLEX TO TITER Routine 12/22/2024 2:14 PM EDT Encounter for pre-transplant evaluation for liver transplant TOXOPLASMA GONDII ANTIBODY, IGG Routine 12/22/2024 2:14 PM EDT Encounter for pre-transplant evaluation for liver transplant TSH REFLEX FREE T4 Routine 12/22/2024 2: 14 PM EDT Encounter for pre-transplant evaluation for liver transplant TYPE AND SCREEN Routine 12/22/2024 2:14 PM EDT Encounter for pre-transplant evaluation for liver transplant VARICELLA ZOSTER ANTIBODY, IGG Routine 12/22/2024 2:14 PM EDT Encounter for pre-transplant evaluation for liver transplant VITAMIN A (RETINOL) Routine 12/22/2024 2 :14 PM EDT Encounter for pre-transplant evaluation for liver transplant VITAMIN D, 25-HYDROXY, TOTAL, IMMUNOASSAY Routine 12/22/2024 2:14 PM EDT Encounter for pre-transplant evaluation for liver transplant ZINC, [id number] Routine 12/22/2024 2:14 PM EDT Encounter for pre-transplant evaluation for liver transplant IMAGING - SCANNED Routine 11/19/2024 4:5 0 PM EDT LAB - SCANNED Routine 10/22/2024 4:48 PM EDT from Last 3 Months Results * Due to [place] state law, this organization might not be sharing negative HIV tests. * Comprehensive Drug Panel, Urine (12/22/2024 2:34 PM EDT) Pathologist [facility] Comprehensive Drug Screen Urine DRUGS DETECTED 12/22/2024 9:16 PM EDT [facility] Comment: CAFFEINE METOPROLOL Urine Voided urine specimen / Unknown Non-Blood Collection / Unknown 12/22/2024 2:34 PM EDT 12/22/2024 2:42 PM EDT Srikanth [facility] - 12/22/2024 9:16 PM EDT [facility] Received Date:[id number] Lauren Hancock MD LAB URINE ORDERABLES Fin al Result [facility] MENEZES [address] [facility] [address], [place] [address], [place] [phone] [facility] [address] [facility] [address] Floor, [address] [place] [facility] [place] [place] [address], [place] [phone] * (ABNORMAL) Cystatin C with Glomerular Filtration Rate, Estimated (eGFR) (12/22/2024 2:14 PM EDT) Cystatin C 1.58(H) 0.52 - 1.10 mg/L 12/24/2024 12:17 PM EDT [facility] TUCKERCHANRebecca (FISHER) eGFR Non- 38(L) >=60 NA 12/24/2024 12:17 PM EDT [facility] AVINASH (FISHER) Comment: REFERENCE RANGE:>=60 mL/min/1.73mE2 Blood Structure of peripheral vein / Unknown Venipuncture / Unknown 12/22/2024 2:14 PM EDT 12/22/2024 2:53 PM EDT Narrative BALTA DA SILVA (FISHER) - 12/24/2024 12:17 PM EDT [facility] Received Date: Lauren Hancock MD LAB BLOOD ORDERABLES Fin al Result BALTA CARDONA) [address] [place] [address], [place] * (ABNORMAL) Hepatocellular Carcinoma Panel (Includes AFP, AFP-L3 & DCP) (12/22/2024 2:14 PM EDT) AFP 31.3(H) 1.6 - 4.5 ng/mL 12/29/2024 6:23 PM EDT [facility] [employer] [facility] [place] AFP-L3 3.9 0.5 - 9.9 % 12/29/2024 6:23 PM EDT [facility] [employer] [facility] [place] Comment: The micro-total analysis system ([employer]) employs microchip capillary electrophoresis to quantitatively measure AFP and AFP-L3% by immunochemical techniques. The assay principle involves DNA-coupled antibodies and dye labeled antibodies, which react with proteins in liquid phase within the microchannels. Both analytes are quantified using laser-induced fluorescence. Instrument and associated reagents are supplied by [employer] [place], [place], [place]. Patients with elevated AFP-L3% values (>=10%) have been shown to have an increased risk of developing hepatocellular carcinoma (HCC). In a selected group of patients, the risk of developing HCC was 48.8% with an elevated AFP-L3% and was 7.0% with a negative AFP-L3% result. Limitations of Procedure: 1. The AFP-L3% value is not calculated when the AFP-L3 concentration is below 0.3 ng/mL. In such cases the AFP-L3% result field will indicate NO VALUE DETERMINED 2. Heterophilic antibodies in human serum can react with the immunoglobulins included in the assay components causing interference with in vitro immunoassays. Samples from patients routinely exposed to animals or animal serum products can demonstrate this type of interference and can potentially cause an anomalous result. The [employer] System has been formulated to minimize the risk of the interference; however, potential interactions between rare sera and ingredients can occur. 3. For diagnostic purposes, the results obtained from this assay should always be used and interpreted in conjunction with clinical examination, patient medical history, and other findings. 4. can cause high values of AFP-L3% and AFP is not interpretable in females. 5. AFP producing tumors other than HCC can show high values of AFP-L3% and AFP. 6. Samples from patients having acute hepatitis and fulminant hepatitis can show high values of AFP-L3% and AFP. 7. It is recommended that this assay be used in conjunction with imaging studies for clinical diagnosis. 8. Liver diseases caused by other etiologies such as alcoholic liver disease, hemachromatosis, Chandler's disease, autoimmune hepatitis and steatohepatisis have not been studied with the assay. 9. The assay is linear for AFP concentration of 0.3 to 1000 ng/mL. 10. Values obtained with different assay methods or kits cannot be used interchangeably. DCP (Pbo-Kotoi-Wcngnwl- Prothrombin) 0.2 <7.5 ng/mL 12/29/2024 6:23 PM EDT [facility] [employer] [facility] Comment: The [facility] DCP Immunological Test System is a clinical device used to quantitatively measure, by immunochemical technique, xlk-uxkju-gbixnjg-prothrombin (DCP) in serum. The assay uses DNA-coupled antibodies and dye labeled antibodies, which react with proteins in liquid phase within the microchannels. Both analytes are quantified using laser-induced fluorescence. Instrument and associated reagents are supplied by [employer] [place], [place], [place]. DCP levels increase in patients with hepatocellular carcinoma (HCC) and liver cirrhosis. DCP does not correlate with AFP/AFPL3% but appears to be a complementary assay for assessing, risk of developing HCC. In a selected group of patients, the risk of developing HCC was 36.5% with an elevated DCP result and was 7.6% with a negative DCP result. Limitations of Procedure: 1. Heterophilic antibodies in human serum can react with the immunoglobulins included in the assay components causing interference with in vitro immunoassays. Sample from patients routinely exposed to animals or animal serum products can demonstrate this type of interference potentially causing an anomalous result. The [facility] DCP has been formulated to minimize the risk of interference; however, potential interactions between rare sera and ingredients can occur. 2. For diagnostic purposes, the results obtained from this assay should always be used and interpreted in conjunction with clinical examination, patient medical history,and other findings. 3. It is recommended that this assay be used in conjunction with imaging studies for clinical diagnosis. 4. DCP producing tumors other than HCC can show elevated values of DCP. 5. Liver disease caused by other etiologies such as alcoholic liver disease, hemachromatosis, Chandler's disease, autoimmune hepatitis and steatohepatitis have not been studied with this assay. 6. Medication containing vitamin K preparations may cause a negative bias on the DCP values. 7. Medication containing vitamin K antagonists or antibiotic may cause a positive bias on the DCP values. 8. Values obtained with different assay methods or kits cannot be used interchangeably. Blood Structure of peripheral vein / Unknown Venipuncture / Unknown 12/22/2024 2:14 PM EDT 12/22/2024 2:52 PM EDT [facility] 12/29/2024 6:23 PM EDT [facility] Received Date: Lauren Hancock MD LAB BLOOD ORDERABLES Fin al Result BALTA MENEZES [address] [facility] [address]rd Floor, [address] [place] [address], [place] [phone] [facility]/NATALIA AVINASH [place] [address] [place] [address], [place] [phone] * Phosphatidylethanol (PEth) (12/22/2024 2:14 PM EDT) PEth 16:0/18:1 (POPEth) <10 ng/mL 12/24/2024 2:50 PM EDT [facility] Comment: PEth 16:0/18:1 (POPEth) Less than 10 ng/mL............Not detected Less than 20 ng/mL............Abstinence or light alcohol consumption 20 - 200 ng/mL................Moderate alcohol consumption Greater than 200 ng/mL........Heavy alcohol consumption or chronic alcohol use (Reference: Wes Rios and Luiz Garduno 2018 J. Forensic Sci) PEth 16:0/18:2 (PLPEth) <10 ng/mL 12/24/2024 2:50 PM EDT [facility] Comment:Reference ranges are not well established. EER Peth See Note 12/24/2024 2:50 PM EDT [facility] Comment: Authorized individuals can access the [facility] Enhanced Report with an [employer] Connect account using the following link. Your local lab can assist you in obtaining the patient report if you don't have a Connect account. [email or web address] PEth Interpretation See Comment 12/11 2:50 PM EDT [facility] Comment: Phosphatidylethanol (PEth) is a group of phospholipids formed in the presence of ethanol, phospholipase D and phosphatidylcholine. PEth is known to be a direct alcohol biomarker. The predominant PEth homologues are PEth 16:0/18:1 (POPEth) and PEth 16:0/18:2 (PLPEth), which account for 37-46% and 26-28% of the total PEth homologues, respectively. PEth is incorporated into the phospholipid membrane of red blood cells and has a general half-life of 4-10 days and a window of detection of 2-4 weeks. However, the window of detection is longer in individuals who chronically or excessively consume alcohol. The limit of quantification is 10 ng/mL. Serial monitoring of PEth may be helpful in monitoring alcohol abstinence over time. PEth results should be interpreted in the context of the patient's clinical and behavioral history. Patients with advanced liver disease may have falsely elevated PEth concentrations (Jamila BLANK et al 2018, Alcoholism Clinical & Experimental Research). This test was developed and its performance characteristics determined by [employer]. It has not been cleared or approved by the U.S. Food and Drug Administration. This test was performed in a CLIA-certified laboratory and is intended for clinical purposes. Performed By: [employer] [address] [place] [address] Litigation Legal Assistant: Dennis Landry MD, PhD CLIA Number: [id number] Blood Structure of peripheral vein / Unknown Venipuncture / Unknown 12/22/2024 2:14 PM EDT 12/22/2024 2:51 PM EDT Lauren Hancock MD LAB BLOOD ORDERABLES [facility] al Result [facility] [address] [place] [address], * Lyfhg-1-Ilijxwqnuir (AAT) Phenotype (12/22/2024 2:14 PM EDT) Alpha 1 Antitrypsin Phenotype SEE NOTE 12/28/2024 6:17 PM EDT [facility] [place] [facility] Comment: THIS PATIENT'S JYLVL-9-FEVBAXCRKGT PHENOTYPE IS PI*MM. 90% of normal individuals have the MM phenotype, with normal quantitative AAT levels. Many phenotypic patterns have been described, including deficiency states with F, S, Z, or other alleles. As a general estimation, compared to M allele of 100% of normal L-5-Lvxusocutyb protein, the S allele produces approximately 60% and the Z allele 20%. For example, an MS phenotype would have about 80% of normal K-6-Gizqcuhtipj protein level, a 50% contribution from the M allele and 30% from the S allele. A ZZ phenotype would have about 20% of normal levels, a 10% contribution from each Z gene. The F allele has normal C-5-Qbjwaoucygy levels, but the kinetics of elastase inhibition is not as efficient as an M allele product; F alleles should be considered functionally mildly deficient. Other variants are identifiable by phenotypic analysis. These include CM, DP, EM, GM, IS, LM, M1M2, M3M3, MP, MT, XX, MY, and M1N. I, P, T and null alleles are considered deleterious. C, D, E, G, L, M1, M2, M3, X and Y alleles are generally considered normal variants. The MZ-Mccollum phenotype is a normal variant; care should be taken to avoid confusion with the deficient MZ phenotype. Blood Structure of peripheral vein / Unknown Venipuncture / Unknown 12/22/2024 2:14 PM EDT 12/22/2024 2:51 PM EDT Narrative [facility] 12/28/2024 6:17 PM EDT [facility] Received Date: Lauren Hancock MD LAB BLOOD ORDERABLES Fin al Result BALTA MENEZES [address] [facility] [address], [place] [address], [place] [phone] [facility]/FISHER [facility] [address] [place] [address], [place] [phone] * MMR Panel, IgG (12/22/2024 2:14 PM EDT) [facility] Measles Antibody (IgG), Immune Status >300.00 AU/mL 12/23/2024 5:57 AM EDT [facility] Comment: AU/mL Interpretation ----- <13.50 Not consistent with immunity 13.50-16.49 Equivocal >16.49 Consistent with immunity The presence of measles IgG suggests immunization or past or current infection with measles virus. For additional information, please refer to [email or web address]/faq/[email or web address] (This link is being provided for informational/ educational purposes only.) Mumps Antibody (IgG), Immune Status >300.00 AU/mL 12/23/2024 5:57 AM EDT [facility] Comment: AU/mL Interpretation ------- <9.00 Not consistent with immunity 9.00-10.99 Equivocal >10.99 Consistent with immunity The presence of mumps IgG antibody suggests immunization or past or current infection with mumps virus. Rubella Antibody (IgG), Immune Status 5.07 Index 12/23/2024 5:57 AM EDT [facility] Comment: Index Interpretation ----- <0.90 Not consistent with immunity 0.90-0.99 Equivocal > or = 1.00 Consistent with immunity The presence of rubella IgG antibody suggests immunization or past or current infection with rubella virus. Blood Structure of peripheral vein / Unknown Venipuncture / Unknown 12/22/2024 2:14 PM EDT 12/22/2024 2:52 PM EDT Narrative [facility] [facility] - 12/23/2024 5:57 AM EDT [facility] Received Date: us Lauren Hacnock MD LAB BLOOD ORDERABLES Fin al Result [facility] [address] [facility] 3rd Floor, [place] [address], [place] [phone] [facility] 200 [facility] 3rd Floor, [place] [address], * (ABNORMAL) Herpes Simplex Virus 1&2, IgG (12/22/2024 2:14 PM EDT) [facility] HSV 1 IgG Type Specific Ab 46.90(H) index 12/23/2024 3:42 AM EDT [facility] HSV 2 IgG Type Specific Ab <0.90 index 12/23/2024 3:[address] [facility] Comment: Index Interpretation ----- <0.90 Negative 0.90-1.09 Equivocal >1.09 Positive This assay utilizes recombinant type-specific antigens to differentiate HSV-1 from HSV-2 infections. A positive result cannot distinguish between recent and past infection. If recent HSV infection is suspected but the results are negative or equivocal, the assay should be repeated in 4-6 weeks. The performance characteristics of the assay have not been established for pediatric populations, immunocompromised patients, or screening. For additional information, please refer to http://education.Africasana/faq/LLW477 (This link is being provided for informational/ educational purposes only.) Blood Structure of peripheral vein / Unknown Venipuncture / Unknown 12/22/2024 2:14 PM EDT 12/22/2024 2:50 PM EDT [facility] - 12/23/2024 3:42 AM EDT [facility] Received Date: Lauren Hancock MD LAB BLOOD ORDERABLES [facility] al Result [facility] [address], [place] [address], [facility] [address], [place] [address], * (ABNORMAL) Protein Electrophoresis w/Reflex to Immunofixation, Serum (12/22/2024 2:14 PM EDT) Pathologist [facility] Protein, Total 7.6 6.1 - 8.1 g/dL 12/23/2024 10:54 PM EDT [facility] Albumin 3.8 3.8 - 4.8 g/dL 12/23/2024 10:54 PM EDT [facility] Alpha 1 Globulin 0.4(H) 0.2 - 0.3 g/dL 12/23/2024 10:54 PM EDT [facility] Alpha 2 Globulin 0.9 0.5 - 0.9 g/dL 12/23/2024 10:54 PM EDT [facility] Beta 1 Globulin 0.5 0.4 - 0.6 g/dL 12/23/2024 10:54 PM EDT [facility] Beta 2 Globulin 0.5 0.2 - 0.5 g/dL 12/23/2024 10:54 PM EDT [facility] Gamma Globulin 1.5 0.8 - 1.7 g/dL 12/23/2024 10:54 PM EDT [facility] Interpretation See Comments 12/23/2024 10:54 PM EDT [facility] Comment: Alpha-1 globulin increase noted. Blood Structure of peripheral vein / Unknown Venipuncture / Unknown 12/22/2024 2:14 PM EDT 12/22/2024 2:50 PM EDT [facility] [place] - 12/23/2024 10:54 PM EDT [facility] Received Date:[id number] Lauren Hancock MD LAB BLOOD ORDERABLES Fin al Result [facility] [address], [place] [address], [place] [phone] [facility] [address], [place] [address], * RPR (Diagnosis) w/Reflex to Titer & TPPA Confirm (12/22/2024 2:14 PM EDT) RPR W/Refl Titer NON-REACT DEREJE NON-REACT DEREJE 12/23/2024 11:34 AM EDT [facility] Blood Structure of peripheral vein / Unknown Venipuncture / Unknown 12/22/2024 2:14 PM EDT 12/22/2024 2:51 PM EDT [facility] - 12/23/2024 11:34 AM EDT [facility] Received Date:[id number] Lauren Hancock MD LAB BLOOD ORDERABLES Fin al Result [facility] [place] [address] [facility] 3rd Floor, [place] [address], [place] [phone] [facility] [address] [facility] [address]rd Floor, [place] [address], [place] [phone] * (ABNORMAL) Iron Saturation (12/22/2024 2:14 PM EDT) Iron Saturation 19(L) 20 - 50 % 3:36 PM EDT [facility] Iron 59 30 - 160 ug/dL 12/22/2024 3:36 PM EDT [facility] Transferrin 252 200 - 360 mg/dL 12/22/2024 3:36 PM EDT [facility] Total Iron Binding Capacity 315 255 - 450 ug/dL 12/22/2024 3:36 PM EDT [facility] Blood Structure of peripheral vein / Unknown Venipuncture / Unknown 12/22/2024 2:14 PM EDT 12/22/2024 2:51 PM EDT us Lauren Hancock MD LAB BLOOD ORDERABLES Fin al Result [facility] [address] [place] [address], * TSH Reflex Free T4 (12/22/2024 2:14 PM EDT) TSH 3.360 0.280 - 3.890 uIU/mL 12/22/2024 3:36 PM EDT [facility] Comment: Females: 1st trimester 0.150-4.000 IU/mL 2nd trimester 0.310-4.170 IU/mL 3rd trimester 0.380-4.150 IU/mL Blood Structure of peripheral vein / Unknown Venipuncture / Unknown 12/22/2024 2:14 PM EDT 12/22/2024 2:51 PM EDT Lauren Hancock MD LAB BLOOD ORDERABLES Fin al Result [facility] [address] [place] [address], * QuantiFERON-TB Gold Plus, 1 Tube (12/22/2024 2:14 PM EDT) [facility] QuantiFERON-TB Gold Plus NEGATIVE NEGATIVE 12/24/2024 3:[address] [facility] Comment: Negative test result. M. tuberculosis complex infection unlikely. NIL 0.02 IU/mL 12/24/2024 3:33 PM EDT [facility] Mitogen-NIL 6.90 IU/mL 12/24/2024 3:33 PM EDT [facility] TB1-NIL 0.00 IU/mL 12/24/2024 3:33 PM EDT [facility] TB2-NIL 0.00 IU/mL 12/24/2024 3:33 PM EDT [facility] Comment: The Nil tube value reflects the background interferon gamma immune response of the patient's blood sample. This value has been subtracted from the patient's displayed TB and Mitogen results. Lower than expected results with the Mitogen tube prevent false-negative Quantiferon readings by detecting a patient with a potential immune suppressive condition and/or suboptimal pre-analytical specimen handling. The TB1 Antigen tube is coated with the M. tuberculosis-specific antigens designed to elicit responses from TB antigen primed CD4+ helper T-lymphocytes. The TB2 Antigen tube is coated with the M. tuberculosis-specific antigens designed to elicit responses from TB antigen primed CD4+ helper and CD8+ cytotoxic T-lymphocytes. For additional information, please refer to https://education.General Cybernetics.H[employer] Systems[employer]./faq/CQE959 (This link is being provided for informational/ educational purposes only.) Blood Structure of peripheral vein / Unknown Venipuncture / Unknown 12/22/2024 2:14 PM EDT 12/22/2024 2:42 PM EDT Narrative [facility] [place] - 12/24/2024 3:33 PM EDT [facility] Received Date: Lauren Hancock MD LAB BLOOD ORDERABLES Fin al Result [facility] [place] [address] [facility] 3rd Floor, [place] [address], [place] [phone] [facility] [address] [facility] 3rd Floor, [place] [address], [place] [phone] * (ABNORMAL) CBC Auto Differential (12/22/2024 2:14 PM EDT) WBC 4.9 3.8 - 10.8 10*3/uL 12/22/2024 3:21 PM EDT [facility] RBC 4.19 3.80 - 5.10 10*6/uL 12/22/2024 3:21 PM EDT [facility] Hemoglobin 12.1 11.7 - 15.5 g/dL 12/22/2024 3:21 PM EDT [facility] Hematocrit 37.6 35.0 - 45.0 % 12/22/2024 3:21 PM EDT [facility] MCV 89.7 80.0 - 100.0 fL 12/22/2024 3:21 PM EDT [facility] MCH 28.9 27.0 - 33.0 pg 12/22/2024 3:21 PM EDT [facility] MCHC 32.2 32.0 - 36.0 g/dL 12/22/2024 3:21 PM EDT [facility] RDW 14.8 11.0 - 15.0 % 12/22/2024 3:21 PM EDT [facility] Platelets 113(L) 140 - 400 10*3/uL 12/22/2024 3:21 PM EDT [facility] MPV 12/22/2024 3:21 PM EDT [facility] Comment:Test not performed. Neutrophil % 68.8 % 12/22/2024 3:21 PM EDT [facility] Immature Grans % 0.2 0.0 - 0.9 % 12/22/2024 3:21 PM EDT [facility] Lymphocyte % 18.9 % 12/22/2024 3:21 PM EDT [facility] Monocyte % 8.8 % 12/22/2024 3:21 PM EDT [facility] Eosinophil % 2.9 % 12/22/2024 3:21 PM EDT [facility] Basophil % 0.4 % 12/22/2024 3:21 PM EDT [facility] Neutrophil # 3.36 1.50 - 7.80 10*3/uL 12/22/2024 3:21 PM EDT [facility] Immature Grans # <0.03 <=0.03 10*3/uL 12/22/2024 3:21 PM EDT [facility] Lymphocyte # 0.90 0.85 - 3.90 10*3/uL 12/22/2024 3:21 PM EDT [facility] Monocyte # 0.40 0.20 - 0.95 10*3/uL 12/22/2024 3:21 PM EDT [facility] Eosinophil # 0.10 0.02 - 0.50 10*3/uL 12/22/2024 3:21 PM EDT [facility] Basophil # <0.03 0.00 - 0.20 10*3/uL 12/22/2024 3:21 PM EDT [facility] nRBC % 0.0 /100 WBCs 12/22/2024 3:21 PM EDT [facility] nRBC # <0.01 <0.01 10*3/uL 12/22/2024 3:21 PM EDT [facility] Blood Structure of peripheral vein / Unknown Venipuncture / Unknown 12/22/2024 2:14 PM EDT 12/22/2024 2:53 PM EDT us Lauren Hancock MD LAB BLOOD ORDERABLES Fin al Result [facility] [address] [place] [address], [place] * Smooth Muscle Antibody Screen w/Reflex to Titer (12/22/2024 2:14 PM EDT) Pathologist [facility] Smooth Muscle AB Screen NEGATIVE NEGATIVE 12/25/2024 12:24 PM EDT [facility] Blood Structure of peripheral vein / Unknown Venipuncture / Unknown 12/22/2024 2:14 PM EDT 12/22/2024 2:51 PM EDT Narrative [facility] - 12/25/2024 12:24 PM EDT [facility] Received Date:[id number] us Lauren Hancock MD LAB BLOOD ORDERABLES Fin al Result Performing Organization Address [facility] de Phone Number [facility] [place] [address] [facility] 3rd Floor, [place] [address], [facility] [address] [facility] 3rd Floor, [place] [address], * (ABNORMAL) Hepatitis C Antibody w/Reflex to PCR (12/22/2024 2:14 PM EDT) Hepatitis C Antibody REACTIVE( A) NON-REACT DEREJE 12/22/2024 10:35 PM EDT [facility] Comment: Based on this result, the sample will be tested for HCV RNA by a Nucleic Acid Amplification Test (NAAT) to determine if the patient has a current active infection. Blood Structure of peripheral vein / Unknown Venipuncture / Unknown 12/22/2024 2:14 PM EDT 12/22/2024 2:51 PM EDT [facility] - 12/22/2024 10:35 PM EDT [facility] Received Date:[id number] us Lauren Hancock MD LAB BLOOD ORDERABLES Fin al Result [facility] [address], [place] [address], [facility] [address], [place] [address], * (ABNORMAL) Hepatitis A Antibody, Total (12/22/2024 2:14 PM EDT) Pathologist [facility] Hepatitis A Ab, Total REACTIVE( A) NON-REACT DEREJE 12/22/2024 10:28 PM EDT [facility] Comment: For additional information, please refer to http://education.Zenedy/faq/PWU782 (This link is being provided for informational/ educational purposes only.) Blood Structure of peripheral vein / Unknown Venipuncture / Unknown 12/22/2024 2:14 PM EDT 12/22/2024 2:51 PM EDT [facility] - 12/22/2024 10:28 PM EDT [facility] Received Date:[id number] us Lauren Hancock MD LAB BLOOD ORDERABLES Fin al Result [facility] [address] [facility] [address] [facility], [place] [address], [place] [phone] [facility] [address], [place] [address], * STEPHON Screen, Reflex to Titer, IFA (12/22/2024 2:14 PM EDT) STEPHON Screen, IFA NEGATIVE NEGATIVE 10:48 AM EDT [facility] Comment: STEPHON IFA is a first line screen for detecting the presence of up to approximately 150 autoantibodies in various autoimmune diseases. A negative STEPHON IFA result suggests an STEPHON-associated autoimmune disease is not present at this time, but is not definitive. If there is high clinical suspicion for Sjogren's syndrome, testing for anti-SS-A/Ro antibody should be considered. Anti-Candelaria-1 antibody should be considered for clinically suspected inflammatory myopathies. AC-0: Negative International Consensus on STEPHON Patterns (https://doi.org/10.1515/jsmo-2979-0017) For additional information, please refer to http://education.Africasana/faq/XTR909 (This link is being provided for informational/ educational purposes only.) Blood Structure of peripheral vein / Unknown Venipuncture / Unknown 12/22/2024 2:14 PM EDT 12/22/2024 2:52 PM EDT [facility] [place] - 12/24/2024 10:48 AM EDT [facility] Received Date:[id number] Lauren Hancock MD LAB BLOOD ORDERABLES Fin al Result [facility] [place] [address] [facility] 3rd Floor, [place] [address], [place] [phone] [facility] [address] [facility] 3rd Floor, [place] [address], [place] [phone] * Ceruloplasmin (12/22/2024 2:14 PM EDT) Ceruloplasmin 39 14 - 48 mg/dL 12/23/2024 2:32 AM EDT [facility] Blood Structure of peripheral vein / Unknown Venipuncture / Unknown 12/22/2024 2:14 PM EDT 12/22/2024 2:50 PM EDT [facility] - 12/23/2024 2:32 AM EDT [facility] Received Date:[id number] us Navine Nasser-Ghodsi MD LAB BLOOD ORDERABLES Fin al Result [facility] [address] [facility], [place] [address], [place] [phone] [facility] [address], [place] [address], [place] [phone] * (ABNORMAL) Zinc (12/22/2024 2:14 PM EDT) Zinc 54(L) 60 - 130 mcg/dL 12/24/2024 7:44 PM EDT [facility]) Comment: This test was developed and its analytical performance characteristics have been determined by [employer] [place], [place]. It has not been cleared or approved by the U.S. Food and Drug Administration. This assay has been validated pursuant to the CLIA regulations and is used for clinical purposes. Blood Structure of peripheral vein / Unknown Venipuncture / Unknown 12/22/2024 2:14 PM EDT 12/22/2024 2:50 PM EDT Narrative [facility]) - 12/24/2024 7:44 PM EDT [facility] Received Date:[id number] us Lauren Hancock MD LAB BLOOD ORDERABLES Fin al Result [facility]) [address] [place], [place] , [place] * (ABNORMAL) Vitamin A (Retinol) (12/22/2024 2:14 PM EDT) Vitamin A (Retinol) 29(L) 38 - 98 mcg/dL 12/24/2024 6:46 PM EDT [facility]) Comment: Vitamin supplementation within 24 hours prior to blood draw may affect the accuracy of the results. This test was developed and its analytical performance characteristics have been determined by [employer] [place], [place]. It has not been cleared or approved by the U.S. Food and Drug Administration. This assay has been validated pursuant to the CLIA regulations and is used for clinical purposes. Blood Structure of peripheral vein / Unknown Venipuncture / Unknown 12/22/2024 2:14 PM EDT 12/22/2024 2:46 PM EDT [facility]) - 12/24/2024 6:46 PM EDT [facility] Received Date:[id number] Lauren Hancock MD LAB BLOOD ORDERABLES Fin al Result [facility]) [address] [place], [place] , [place] * (ABNORMAL) Emma-Dietz Virus VCA, IgG (12/22/2024 2:14 PM EDT) Pathologist [facility] EBV Viral Capsid Ag Ab (IGG) 652.00(H) U/mL 12/23/2024 3:42 AM EDT [facility] Comment: U/mL Interpretation ---- <18.00 Negative 18.00-21.99 Equivocal >21.99 Positive Blood Structure of peripheral vein / Unknown Venipuncture / Unknown 12/22/2024 2:14 PM EDT 12/22/2024 2:50 PM EDT [facility] GIFFORD [place] - 12/23/2024 3:42 AM EDT [facility] Received Date:[id number] Lauren Hancock MD LAB BLOOD ORDERABLES Fin al Result Performing Organization Address City/[facility]/ZIP Co de Phone Number [address], [place] [address], [facility] [address], [place] [address], * Hepatitis B Core Antibody, Total (12/22/2024 2:14 PM EDT) Pathologist [facility] Hepatitis B Core Ab Total NON-REACT DEREJE NON-REACT DEREJE 12/22/2024 7:[address] [facility] Comment: For additional information, please refer to http://UpTo.Zenedy/faq/KCU406 (This link is being provided for informational/ educational purposes only.) Blood Structure of peripheral vein / Unknown Venipuncture / Unknown 12/22/2024 2:14 PM EDT 12/22/2024 2:50 PM EDT Narrative [facility] - 12/22/2024 7:44 PM EDT [facility] Received Date:[id number] Lauren Hancock MD LAB BLOOD ORDERABLES Fin al Result [facility] [address] [facility] 3rd Floor, [place] [address], Man[facility] [address], [place] [address], * Hepatitis C RNA, Quantitative, PCR (12/22/2024 2:14 PM EDT) [facility] Hcv RNA, Quantitative Real Time PCR <15 NOT DETECTED NOT DETECTED IU/mL 12/23/2024 1:[address] [facility] Hepatitis C Quantitative PCR Log IU/mL <1.18 NOT DETECTED NOT DETECTED Log IU/mL 12/23/2024 1:[address] [facility] Comment: HCV RNA is not detected. There is no laboratory evidence of a current active HCV infection. This pattern of results (undetectable HCV RNA combined with reactive HCV antibody) could be consistent with a resolved past infection if the clinical history is compatible with previous HCV exposure. However, if no previous exposure is suspected, the reactive HCV antibody could be a biological false positive result. For more information on this test, go to: http://UpTo.Zenedy/faq/DMH08f2 (This link is being provided for informational/ educational purposes only.) This assay is intended for use as an aid in the diagnosis of HCV infection and the management of HCV infected patients undergoing anti-viral therapy. Blood Structure of peripheral vein / Unknown Venipuncture / Unknown 12/22/2024 2:14 PM EDT 12/22/2024 2:51 PM EDT [facility] - 12/23/2024 1:16 PM EDT [facility] Received Date:[id number] us Lauren Hancock MD LAB BLOOD ORDERABLES Fin al Result Performing Organization Address City/[facility]/ZIP Co de Phone Number [facility] [address] [facility] [address]rd Floor, [place] [address], [place] [phone] [facility] [address] [facility] [address]rd Floor, [place] [address], [place] [phone] * Vitamin D, 25-Hydroxy, Total, Immunoassay (12/22/2024 2:14 PM EDT) Calcidiol+ercalc idiol 62 30 - 100 ng/mL 12/22/2024 10:[address] [facility] Comment: Vitamin D Status 25-OH Vitamin D: Deficiency: <20 ng/mL Insufficiency: 20 - 29 ng/mL Optimal: > or = 30 ng/mL For 25-OH Vitamin D testing on patients on D2-supplementation and patients for whom quantitation of D2 and D3 fractions is required, the QuestAssureD(TM) 25-OH VIT D, (D2,D3), LC/MS/MS is recommended: order code [id number] (patients >2yrs). See Note 1 Note 1 For additional information, please refer to http://education.Cloudsnap.Hera Systems[employer]./faq/FUU646 (This link is being provided for informational/ educational purposes only.) Blood Structure of peripheral vein / Unknown Venipuncture / Unknown 12/22/2024 2:14 PM EDT 12/22/2024 2:51 PM EDT Srikanth MENEZES - 12/22/2024 10:26 PM EDT [facility] Received Date:[id number] us Lauren Hancock MD LAB BLOOD ORDERABLES Fin al Result [facility] [address] [facility] [address]rd Floor, [place] [address], [facility] [address] [facility] [address] Floor, [place] [address], * Mitochondrial Antibody w/Reflex (12/22/2024 2:14 PM EDT) Mitochondrial Ab Screen NEGATIVE NEGATIVE 12/25/2024 12:24 PM EDT [facility] Blood Structure of peripheral vein / Unknown Venipuncture / Unknown 12/22/2024 2:14 PM EDT 12/22/2024 2:51 PM EDT [facility] [place] - 12/25/2024 12:24 PM EDT [facility] Received Date: us Lauren Hancock MD LAB BLOOD ORDERABLES Fin al Result [facility] [address] [facility] [address] [facility], [place] [address], [place] [phone] [facility] [address], [place] [address], * Toxoplasma gondii Antibody, IgG (12/22/2024 2:14 PM EDT) Pathologist [facility] Toxoplasma Ab IgG <7.20 IU/mL 12/23/2024 4:53 AM EDT [facility] Comment: IU/mL Interpretation ------ <7.20 Negative 7.20-8.79 Equivocal >8.79 Positive Blood Structure of peripheral vein / Unknown Venipuncture / Unknown 12/22/2024 2:14 PM EDT 12/22/2024 2:51 PM EDT Srik[facility] [place] - 12/23/2024 4:53 AM EDT [facility] Received Date: us Lauren Hancock MD LAB BLOOD ORDERABLES Fin al Result Performing Organization Address City/[facility]/ZIP Co de Phone Number [facility] [address], [place] [address], [place] [phone] [facility] [address], [place] [address], [place] [phone] * HIV-1/2 Antigen/Antibodies 4th Generation w/Reflex (12/22/2024 2:14 PM EDT) Pathologist [facility] HIV Final Interp See Comments 12/22/2024 7:[address] [facility] Comment: HIV Negative HIV-1 antigen and HIV-1/HIV-2 antibodies were not detected. There is no laboratory evidence of HIV infection. Blood Structure of peripheral vein / Unknown Venipuncture / Unknown 12/22/2024 2:14 PM EDT 12/22/2024 2:50 PM EDT Narrative [facility] - 12/22/2024 7:45 PM EDT [facility] Received Date:[id number] Lauren Hancock MD LAB BLOOD ORDERABLES Fin al Result Performing Organization Address City/[facility]/ZIP Co de Phone Number [facility] MENEZ[facility] [address], [place] [address], [place] [phone] [facility] [address], [place] [address], [place] [phone] * Hepatitis B Surface Antibody (12/22/2024 2:14 PM EDT) Hepatitis B Surface Ab Immunity, Qn 173 > OR = 10 mIU/mL 12/22/2024 10:[address] [facility] Comment: PATIENT HAS IMMUNITY TO HEPATITIS B VIRUS. For additional information, please refer to http://education.Zenedy/faq/OXD419 (This link is being provided for informational/ educational purposes only). Blood Structure of peripheral vein / Unknown Venipuncture / Unknown 12/22/2024 2:14 PM EDT 12/22/2024 2:51 PM EDT [facility] - 12/22/2024 10:28 PM EDT [facility] Received Date:[id number] us Lauren Hancock MD LAB BLOOD ORDERABLES Fin al Result Performing Organization Address City/[facility]/ZIP Co de Phone Number [facility] [address], [place] [address], [place] [phone] [facility] [address], [place] [address], [place] [phone] * Hepatitis B Surface Antigen w/Confirmation (12/22/2024 2:14 PM EDT) Pathologist [facility] Hepatitis B Surface Antigen NON-REACT DEREJE NON-REACT DEREJE 12/23/2024 10:30 AM EDT [facility] Comment: For additional information, please refer to http://education.Zenedy/faq/ALH907 (This link is being provided for informational/ educational purposes only.) Blood Structure of peripheral vein / Unknown Venipuncture / Unknown 12/22/2024 2:14 PM EDT 12/22/2024 2:52 PM EDT Srikanth [facility]ANS[facility] - 12/23/2024 10:30 AM EDT [facility] Received Date:[id number] us Lauren Hancock MD LAB BLOOD ORDERABLES Fin al Result Performing Organization Address City/[facility]/ZIP Co de Phone Number BALTA CHANSAN [facility] [address], [place] [address], [place] [phone] [facility] [address], [place] [address], [place] [phone] * (ABNORMAL) Cytomegalovirus Antibody, IgG (12/22/2024 2:14 PM EDT) Cytomegalovirus Antibody (IgG) >10.00(H ) U/mL 12/23/2024 3:42 AM EDT [facility] Comment: U/mL Interpretation ----- <0.60 Negative 0.60-0.69 Equivocal > or = 0.70 Positive A positive result indicates that the patient has antibody to CMV. It does not differentiate between an active or past infection. Blood Structure of peripheral vein / Unknown Venipuncture / Unknown 12/22/2024 2:14 PM EDT 12/22/2024 2:50 PM EDT Narrative [facility] - 12/23/2024 3:42 AM EDT [facility] Received Date:[id number] us Lauren Hancock MD LAB BLOOD ORDERABLES Fin al Result Performing Organization Address [facility] Co de Phone Number [address], [place] [address], [place] [phone], [place] [address], [place] [phone] * PTT (12/22/2024 2:14 PM EDT) [facility] aPTT 29.1 23.0 - 32.0 Seconds 12/22/2024 3:16 PM EDT [facility] Comment: Current PTT reagent is not sensitive to detect all Lupus Anticoagulant (LA) Inhibitor Cases. If a LA is suspected, please order a Lupus Anticoagulation w/ Reflex Test which is performed at [facility] in [place], [place]. Blood Structure of peripheral vein / Unknown Venipuncture / Unknown 12/22/2024 2:14 PM EDT 12/22/2024 2:53 PM EDT us Lauren Hancock MD LAB BLOOD ORDERABLES Fin al Result Performing Organization Address [facility]/ZIP Co de Phone Number [facility] [address] [place] [phone], [place] * (ABNORMAL) Protime-INR (12/22/2024 2:14 PM EDT) PT 12.6(H) 9.6 - 12.4 Seconds 12/22/2024 3:16 PM EDT [facility] INR 1.2 0.9 - 1.1 12/22/2024 3:16 PM EDT [facility] [employer] [facility] Comment:The optimal therapeu tic INR range for patients treated with Vitamin K antagonists (VKAS, e.g., Warfarin) is 2.0 to 3.5. Discuss the desired range with your doctor/care team. Blood Structure of peripheral vein / Unknown Venipuncture / Unknown 12/22/2024 2:14 PM EDT 12/22/2024 2:53 PM EDT us Lauren Hancock MD LAB BLOOD ORDERABLES Fin al Result Performing Organization Address [facility]/ZIP Co de Phone Number [facility] [facility] [address] [place] [address], * Type and Screen (12/22/2024 2:14 PM EDT) ABO Blood Type A 12/22/2024 3:35 PM EDT [facility] RH Type Positive 12/22/2024 3:35 PM EDT [facility] Expiration Date/Time 2024-12-25 23:59 12/22/2024 3:35 PM EDT [facility] Antibody Screen Negative 12/22/2024 3:35 PM EDT [facility] Blood Structure of peripheral vein / Unknown Venipuncture / Unknown 12/22/2024 2:14 PM EDT 12/22/2024 2:17 PM EDT us Lauren Hancock MD LAB BLOOD BANK TEST ORDE RABLES Final Result [facility] [address] [place] [address], * Varicella Zoster Antibody, IgG (12/22/2024 2:14 PM EDT) Pathologist [facility] Varicella Zoster Virus Antibody 30.50 S/CO 12/22/2024 10:41 PM EDT [facility] Comment: Signal to Cut-off S/CO Interpretation --------- <1.00 Negative - Antibody not detected > or = 1.00 Positive - Antibody detected A positive result indicates that the patient has antibody to VZV but does not differentiate between an active or past infection. The clinical diagnosis must be interpreted in conjunction with the clinical signs and symptoms of the patient. This assay reliably measures immunity due to previous infection but may not be sensitive enough to detect antibodies induced by vaccination. Thus, a negative result in a vaccinated individual does not necessarily indicate susceptibility to VZV infection. A more sensitive test for vaccination-induced immunity is Varicella Zoster Virus Antibody Immunity Screen, ACIF. Blood Structure of peripheral vein / Unknown Venipuncture / Unknown 12/22/2024 2:14 PM EDT 12/22/2024 2:51 PM EDT Narrative [facility] - 12/22/2024 10:41 PM EDT [facility] Received Date: Lauren Hancock MD LAB BLOOD ORDERABLES Fin al Result [facility] [address], [place] [address], [facility] 200 [facility] 3rd Floor, [place] [address], [place] [phone] * Phosphorus (12/22/2024 2:14 PM EDT) Pathologist [facility] Phosphorus 4.0 2.5 - 4.5 mg/dL 12/22/2024 3:36 PM EDT [facility] [employer] Blood Structure of peripheral vein / Unknown Venipuncture / Unknown 12/22/2024 2:14 PM EDT 12/22/2024 2:51 PM EDT Lauren Hancock MD LAB BLOOD ORDERABLES Fin al Result Performing Organization Address City/[facility]/ZIP Co de Phone Number [facility] [address] [place] [address], * Magnesium (12/22/2024 2:14 PM EDT) MG 1.6 1.6 - 2.4 mg/dL 12/22/2024 3:36 PM EDT [facility] Blood Structure of peripheral vein / Unknown Venipuncture / Unknown 12/22/2024 2:14 PM EDT 12/22/2024 2:51 PM EDT us Lauren Hancock MD LAB BLOOD ORDERABLES Fin al Result Performing Organization Address [facility] de Phone Number [facility] [address] [place] [address], * (ABNORMAL) Hemoglobin A1c (12/22/2024 2:14 PM EDT) Hemoglobin A1C 5.9(H) <5.7 % 12/22/2024 8:27 PM EDT [facility] Comment: For someone without known diabetes, a hemoglobin A1c value between 5.7% and 6.4% is consistent with prediabetes and should be confirmed with a follow-up test. For someone with known diabetes, a value <7% indicates that their diabetes is well controlled. A1c targets should be individualized based on duration of diabetes, age, comorbid conditions, and other considerations. This assay result is consistent with an increased risk of diabetes. Currently, no consensus exists regarding use of hemoglobin A1c for diagnosis of diabetes for children. eAG (MG/DL) 123 mg/dL 12/22/2024 8:27 PM EDT [facility] eAG (MMOL/L) 6.8 mmol/L 12/22/2024 8:27 PM EDT [facility] Blood Structure of peripheral vein / Unknown Venipuncture / Unknown 12/22/2024 2:14 PM EDT 12/22/2024 2:51 PM EDT Narrative [facility] - 12/22/2024 8:27 PM EDT [facility] Received Date:[id number] us Lauren Hancock MD LAB BLOOD ORDERABLES Fin al Result [facility] 200 [facility] 3rd Floor, [place] [address], [place] [phone] [facility] 200 [facility] 3rd Floor, [place] [address], [place] [phone] * Ferritin (12/22/2024 2:14 PM EDT) Ferritin 172.0 11.0 - 306.0 ng/mL 12/22/2024 3:36 PM EDT [facility] Blood Structure of peripheral vein / Unknown Venipuncture / Unknown 12/22/2024 2:14 PM EDT 12/22/2024 2:51 PM EDT us Lauren Hancock MD LAB BLOOD ORDERABLES Fin al Result Performing Organization Address [facility]/ZIP Co de Phone Number [facility] [address] [place] [address], * Bilirubin, Direct (12/22/2024 2:14 PM EDT) Bilirubin, Direct 0.3 <=0.4 mg/dL 12/22/2024 3:36 PM EDT [facility] Blood Structure of peripheral vein / Unknown Venipuncture / Unknown 12/22/2024 2:14 PM EDT 12/22/2024 2:51 PM EDT us Lauren Hancock MD LAB BLOOD ORDERABLES Fin al Result [facility] [address] * Ethanol (12/22/2024 2:14 PM EDT) Ethanol <10 <10 mg/dL 12/22/2024 3:38 PM EDT [facility] Blood Structure of peripheral vein / Unknown Venipuncture / Unknown 12/22/2024 2:14 PM EDT 12/22/2024 2:50 PM EDT Lauren Hancock MD LAB BLOOD ORDERABLES Fin al Result [facility] [address] * (ABNORMAL) Lipid panel (12/22/2024 2:14 PM EDT) Cholesterol 203(H) <=199 mg/dL 12/22/2024 3:36 PM EDT [facility] Triglycerides 171(H) <=149 mg/dL 12/22/2024 3:36 PM EDT [facility] Cholesterol, HDL 39(L) 40 - 59 mg/dL 12/22/2024 3:36 PM EDT [facility] Cholesterol, Non-HDL 164 mg/dL 12/22/2024 3:36 PM EDT [facility] LDL Cholesterol 130(H) <100 mg/dL 12/22/2024 3:36 PM EDT [facility] VLDL 34.2 mg/dL 12/22/2024 3:36 PM EDT [facility] Cholesterol/HDL Ratio 5.2(H) <5.0 12/22/2024 3:36 PM EDT [facility] Blood Structure of peripheral vein / Unknown Venipuncture / Unknown 12/22/2024 2:14 PM EDT 12/22/2024 2:51 PM EDT Narrative [email or web address] - 12/22/2024 3:36 PM EDT Adult Treatment Panel III Guidelines of NCEP 2001 Category: Total Cholesterol (mg/dL) Desirable <200 Borderline High 200-239 High >=240 Category: LDL Cholesterol (mg/dL) Optimal <100 Near Optimal/Above Optimal 100-129 Borderline High 130-159 High 160-189 Very High >=190 Category: HDL Cholesterol (mg/dL) Low <40 High >=60 NCEP's Expert Panel on Blood Cholesterol in Children and Adolescents Category: Total Cholesterol (mg/dL) Desirable <170 Borderline High 170-199 High >=200 Category: LDL Cholesterol (mg/dL) Desirable <110 Borderline High 110-129 High >=130 Lauren Hancock MD LAB BLOOD ORDERABLES Fin al Result [facility] [address] [place] [address], * (ABNORMAL) Comprehensive Metabolic Panel (12/22/2024 2:14 PM EDT) NA 141 135 - 145 mmol/L 12/22/2024 3:36 PM EDT [facility] K 3.9 3.5 - 5.3 mmol/L 12/22/2024 3:36 PM EDT [facility] Cl 101 98 - 107 mmol/L 12/22/2024 3:36 PM EDT [facility] CO2 27 22 - 32 mmol/L 12/22/2024 3:36 PM EDT [facility] Anion Gap 13 5 - 15 12/22/2024 3:36 PM EDT [facility] Glucose 85 65 - 99 mg/dL 12/22/2024 3:36 PM EDT [facility] Creatinine 0.77 0.50 - 1.20 mg/dL 12/22/2024 3:36 PM EDT [facility] Calcium 10.5 8.6 - 10.5 mg/dL 12/22/2024 3:36 PM EDT [facility] Total Protein 8.3(H) 6.0 - 8.0 g/dL 12/22/2024 3:36 PM EDT [facility] Albumin 3.9 3.5 - 5.2 g/dL 12/22/2024 3:36 PM EDT [facility] Bilirubin, Total 0.6 0.2 - 1.2 mg/dL 12/22/2024 3:36 PM EDT [facility] Alkaline Phosphatase 71 35 - 129 U/L 12/22/2024 3:36 PM EDT [facility] AST 35 10 - 40 U/L 12/22/2024 3:36 PM EDT [facility] ALT 30 10 - 40 U/L 12/22/2024 3:36 PM EDT [facility] BUN 12 7 - 23 mg/dL 12/22/2024 3:36 PM EDT [facility] eGFR 83 >=60 mL/min/1. 73m2 12/22/2024 3:36 PM EDT [facility] Comment:The estimated glomer ular filtration rate (eGFR) is calculated using a new formula developed by the NKF-ASN task force to eliminate race-based correction factors. The new formula uses serum/plasma creatinine, age, and gender to determine eGFR. A value below 60mls/min might indicate kidney disease and will be flagged. For additional information, see Emery et al, Am J Kidney Dis. 2021;79(2):268- 288, A Unifying Approach for GFR estimation: Recommendations of the NKF-ASN Task Force on Reassessing the Inclusion of Race in Diagnosing Kidney Disease . Globulin, Total 4.4(H) 2.1 - 4.2 g/dL 12/22/2024 3:36 PM EDT [facility] A/G Ratio 0.9(L) 1.5 - 3.0 12/22/2024 3:36 PM EDT [facility] Blood Structure of peripheral vein / Unknown Venipuncture / Unknown 12/22/2024 2:14 PM EDT 12/22/2024 2:51 PM EDT us Lauren Hancock MD LAB BLOOD ORDERABLES Fin al Result [facility] [address] [place] [address], [place] * IMAGING - SCANNED (11/19/2024 4:50 PM EDT) Anatomical Region Laterality Modality Other us Unknown Provider SCANNED PROCEDURES Final Res ult * LAB - SCANNED (10/22/2024 4:48 PM EDT) us Unknown Provider LAB HISTORICAL RESULTS Final Result from Last 3 Months Insurance [address] [place] [address] [place] Care Teams Steam Presser Relationship Specialty Start Date End Date Darius Tamayo MD [address] [place] [address] [phone] PCP - General Gastroenterology 12/22/24
--- OUTSIDE RECORDS SUMMARY | 2025-01-04 14:31 | XMS_ITS | Encounter Summary ---
Author Organization [facility] Address [address] [place] [address] Care Team Providers Care City Planning Aide Name Role Phone Darius Tamayo MD Primary Care Provider [phone] Encounter Details Date Type Department Care Team (Late st Contact Info) Description 12/25/2024 Results Follow-Up [facility] Liver Transplant Services [address] [place] [address] [phone] Sabrina Dahl RN Social History Tobacco Use [...] on file documented as of this encounter Miscellaneous Notes * Telephone Encounter - Sabrina Dahl RN - 12/25/2024 10:57 AM EDT Spoke with Walt, instructed to start taking Atorvastatin 20 mg daily, Vitamin A 10,000 units daily x 3 months and Zinc 50 mg daily x 1 month. Watl understands and in agreement with plan. Medications ordered. * Telephone Encounter - Sabrina Dahl RN - 12/25/2024 10:57 AM EDT ----- Message from aLuren Hancock MD sent at 12/25/2024 10:03 AM EDT ----- Thanks! Can we start the following: Atorvastatin 20 mg daily Vitamin A 10,000 units daily x 3 months Zinc 50 mg daily x 1 month ----- Message ----- From: Sabrina Dahl, RN Sent: 12/25/2024 9:24 AM EDT To: Lauren Hancock MD Liver Eval Labs Meld 9 Zinc, Vit A low ----- Message ----- From: Lab, Background User Sent: 12/22/2024 3:16 PM EDT To: Sabrina Dahl, RN * Result Encounter Note - Lauren Hancock MD - 12/25/2024 10:03 AM EDT Thanks! Can we start the following: Atorvastatin 20 mg daily Vitamin A 10,000 units daily x 3 months Zinc 50 mg daily x 1 month documented in this encounter Plan of Treatment Upcoming Encounters Date Type Department Care Team (Late st Contact Info) Description 01/06/2025 1:[address] [facility] [address] [place] [address] Lauren Hancock MD [address] [place] [phone] 02/12/2025 10:00 AM EDT Appointment [facility] Cardiac Ultrasound [address] [place] [address] Lauren Hancock MD [address] [place] [phone] 03/18/2025 2:00 PM EST Follow-Up [facility] Transplant Services [address] [place] [phone] Lauren Hancock MD [address] [place] [phone] documented as of this encounter Visit Diagnoses Not on filedocumented in this encounter Care Teams City Planning Aide Relationship Specialty Start Date End Date Darius Tamayo MD [address] [place] [phone] PCP - General Gastroenterology 12/22/24 documented as of this encounter
[2025-01-04 16:14] LABS: MANUAL DIFF FLAG NO
[2025-01-04 16:15] LABS: Hematocrit 36.6 % (37.0-47.0); Hemoglobin 11.8 g/dl (12.0-16.0); Imm Gran Abs Auto 0.01 X10*3/uL (0.00-0.03); Imm Gran Pct Auto 0.2 % (0.0-0.4); Lymphocytes Absolute Auto 1.0 X10*3/uL (1.2-4.9); Mean Corpuscular HGB Conc 32.2 g/dl (31.0-35.0); Mean Corpuscular Hemoglobin 29.1 pg (27.0-33.0); Mean Corpuscular Volume 90.4 fL (80.0-98.0); NRBC Abs Auto 0.000 X10*3/uL (0.0-0.012); NRBC Pct Auto 0.0 /100WBC (0.0-0.2); Platelet Count 184 X10*3/uL (160-400); Red Blood Count 4.05 X10*6/uL (4.20-5.50); White Blood Count 4.9 X10*3/uL (4.8-10.8)
[2025-01-04 16:46] LABS: Alanine Aminotransferase 28 U/L (0-31); Albumin Level 3.7 g/dL (3.5-5.0); Alkaline Phosphatase 64 U/L (39-117); Anion Gap 13 (12-20); Aspartate Amino Transferase 38 U/L (5-31); Blood Urea Nitrogen 13 mg/dL (9-16); Calcium 9.8 mg/dL (8.4-10.2); Carbon Dioxide 30 mmol/L (22-29); Chloride 101 mmol/L (96-108); Cholesterol 122 mg/dL (<200); Estimated Glomerular Filt Rate > 60; HDL Cholesterol 32 mg/dL (>40); Potassium 3.4 mmol/L (3.3-5.1); Sodium 141 mmol/L (135-145); Total Protein 7.5 g/dL (6.5-8.0); Triglycerides 104 mg/dL (<150)
== END 2025-01-04 13:12 | disposition home or self-care (01) ==
LOC: HO.HHCL 13:11
PROVIDERS: Registered Nurse Psychiatric/Mental Health; PCP Nurse Practitioner Primary Care; Visit Provider Nurse Practitioner Primary Care
DX: Z79.899 Other long term (current) drug therapy (principal)
CPT/HCPCS: 36415; 80053; 80061; 82248; 84443; 85025

== ENCOUNTER 2025-01-18 14:33 | Outpatient (REF) | payer MEDICAID, SELFPAY ==
--- OUTSIDE RECORDS SUMMARY | 2025-01-15 10:30 | XMS_ITS | Encounter Summary ---
Author Organization [facility] Address [address] [place] [address] Care Team Providers Care Diesel Engine Operator Name Role Phone Darius Tamayo MD Primary Care Provider [phone] Reason for Referral * Cardiac Diagnostic Testing (Routine) - Closed Specialty Diagnoses / Procedures Referred By Lisa betts Referred To Contact Diagnoses Encounter for pre-transplant evaluation for liver transplant Procedures Transthoracic echo (TTE) TRANSTHORACIC ECHO (TTE) TRANSTHORACIC ECHO (TTE) LIMITED TRANSTHORACIC ECHO (TTE) LIMITED W/ CONTRAST TRANSTHORACIC ECHO (TTE) LIMITED W/ COLOR TRANSTHORACIC ECHO (TTE) LIMITED W/ DOPPLER AND COLOR TRANSTHORACIC ECHO (TTE) LIMITED W/ DOPPLER, COLOR AND CONTRAST Lauren Hancock MD [address] [place] [phone] Phone: tel: fax: Referral ID Status Reason Start Date Expiration Date Visits Re quested Visits Authorized [id number] Closed 12/22/2024 06/23/2026 1 1 Reason for Visit * Cardiac Diagnostic Testing (Routine) - Closed Specialty Diagnoses / Procedures Referred By Lisa betts Referred To Contact Diagnoses Encounter for pre-transplant evaluation for liver transplant Procedures Transthoracic echo (TTE) TRANSTHORACIC ECHO (TTE) TRANSTHORACIC ECHO (TTE) LIMITED TRANSTHORACIC ECHO (TTE) LIMITED W/ CONTRAST TRANSTHORACIC ECHO (TTE) LIMITED W/ COLOR TRANSTHORACIC ECHO (TTE) LIMITED W/ DOPPLER AND COLOR TRANSTHORACIC ECHO (TTE) LIMITED W/ DOPPLER, COLOR AND CONTRAST Lauren Hancock MD [address] [place] [address] Phone: tel: fax: Referral ID Status Reason Start Date Expiration Date Visits Re quested Visits Authorized [id number] Closed 12/22/2024 06/23/2026 1 1 Encounter Details Date Type Department Care Team (Latest Contact Info) Description 01/15/2025 10:30 AM EDT - 01/15/2025 11:59 PM EDT Hospital Encounter [facility] Building Cardiac Ultrasound [address] [place] [address] Encounter for pre-transplant evaluation for liver transplant Discharge Disposition: Home or Self Care () Social History Tobacco Use Types Packs/Day Years [...] on file documented as of this encounter Last Filed Vital Signs Vital Sign Reading Time Taken Comments Blood Pressure 146/80 01/15/2025 10:41 AM EDT Pulse - - Temperature - - Respiratory Rate - - Oxygen Saturation - - Inhaled Oxygen Concentration - - Weight 66.2 kg (146 lb) 01/15/2025 10:41 AM EDT Height 148.5 cm (4' 10.47 ) 01/15/2025 10:41 AM EDT Body Mass Index 30.03 01/15/2025 10:41 AM EDT documented in this encounter Medications at Time of Discharge atorvastatin (LIPITOR) 20 mg tablet Take 1 tablet (20 mg total) by mouth once a day. 30 tablet 11 12/25/2024 calcium carbonate-vitami n D3 600 mg-10 mcg (400 unit) per tablet Take 2 tablets by mouth 2 times a day. 09/10/2024 cholecalciferol (VITAMIN D3) 25 mcg (1,000 unit) tablet Take 1,000 Units by mouth once a day. 09/10/2024 Eliquis 5 mg tablet Take 5 mg by mouth every 12 hours. 10/07/2024 hydroCHLOROthiaz john (HYDRODIURIL) 25 mg tablet 25 mg once a day. 10/07/2024 lidocaine (LIDODERM) 5% patch Apply 1 patch topically to the affected area daily. 01/02/2024 metoprolol tartrate (LOPRESSOR) 50 mg tablet Take 50 mg by mouth 2 times a day. 05/19/2024 MOMETASONE FUROATE, BULK, MISC 2 Inhalations as needed. montelukast (SINGULAIR) 10 mg tablet Take 10 mg by mouth at bed time. at bedtime. 08/04/2024 traMADoL (ULTRAM) 50 mg tablet Take 50 mg by mouth every 12 hours as needed for pain. 11/06/2024 vitamin A 3,000 mcg (10,000 unit) capsule Take 1 capsule (10,000 Units total) by mouth once a day. 30 capsule 2 12/25/2024 zinc sulfate (ZINCATE) 50 mg zinc (220 mg) capsule Take 1 capsule (50 mg of elemental zinc total) by mouth once a day. 30 capsule 12/25/2024 5 documented as of this encounter Plan of Treatment Upcoming Encounters Date Type Department Care Team (Late st Contact Info) Description 02/12/2025 11:00 AM EDT Office Visit [facility] Building 4th floor Cardiology Medicine [address] [place] [id number] Instrument Inspector: James Reynoso MD [address] [place] [address] 03/18/2025 2:00 PM EST Follow-Up [facility] Liver Transplant Services [address] [place] [phone] Lauren Hancock MD [address] [place] [address] documented as of this encounter Procedures * Due to [place] state law, this organization might not be sharing negative HIV tests. Procedure Name Priority Date/Time Associated Diagnosis Comments TRANSTHORACIC ECHO (TTE) COMPLETE Routine 01/15/2025 11:47 AM EDT Encounter for pre-transplant evaluation for liver transplant documented in this encounter Results * Due to [place] state law, this organization might not be sharing negative HIV tests. * TRANSTHORACIC ECHO (TTE) COMPLETE (01/15/2025 11:47 AM EDT) BSA 1.65 m2 RIGHT ATRIAL PRESSURE 3 mmHg LVIDD 4.3 cm LVIDS 2.9 cm IVS 0.8 cm LVOT diameter 1.8 cm LVOT area 2.54 cm2 Relative Wall Thickness 0.36 PW 0.8 cm LV Mass Index 59 g/m2 MV Peak E Deepak 0.82 m/s MV avg E/e' 9.61 MV Peak A Deepak 0.68 m/s TR pk deepak 2.6 m/s E/A ratio 1.20 Lateral e' 0.09 m/s E wave deceleration time 185.7 msec Septal e' 0.08 m/s MV E/E' Tissue Velocity Lateral 9.43 LA Volume Index 54 mL/m2 MV E/e' septal 9.80 LA volume 82 mL RVOT diamter 3.2 cm RV PLAX 3.2 cm RVOT area 8.04 cm2 TAPSE 1.9 cm LA size 4.4 cm RA 2D single-plane vol 40 mL RA vol index 24.20 mL/m2 MV mean gradient 1 mmHg MV peak gradient 4 mmHg MV VTI 29.3 cm TR PEAK GRAD 27.0 mmHg Ascending aorta 3.3 cm Ao-asc Z score 1.15 Estimated r vent sys pressure by tricuspid regurg jet 30 mmHg LV ED Post Wall 0.80 LV ES Dimension 2.90 LV ED Dimension 4.30 Aortic Valve Diam 1.8 cm Sinus 2.9 cm Aortic Root Z-score -0.52 Dummy BSA 1.60 LV Systolic Volume 34 mL LV Systolic Volume Index 21 mL/m2 LV Diastolic Volume 91 mL LV Diastolic Volume Index 55 mL/m2 GLS (auto) -20.7 LV GLS A3C -19 LV GLS A2C -18 LV GLS A4C -14 AV peak gradient 8 mmHg Ao peak deepak 1.4 m/s TV est pulmonary artery pressure 30 mmHg Anatomical Region Laterality Modality Heart Echocardiography Narrative 01/15/2025 4:35 PM EDT The left ventricle size is normal. Normal left ventricular wall thickness. Left ventricular mass index is normal. Normal left ventricular wall motion. Normal left ventricular systolic function with estimated LVEF 60-65%. Left ventricular global longitudinal strain is normal. Right ventricle size is normal. Normal right ventricular systolic function. Left atrium is dilated. Mild mitral regurgitation. A prior echocardiogram was not available for direct comparison Left Ventricle The left ventricle size is normal. Normal left ventricular wall thickness. Left ventricular mass index is normal. Normal left ventricular wall motion. Normal left ventricular systolic function with estimated LVEF 60-65%. Left ventricular global longitudinal strain is normal. Unable to assess left ventricular diastolic function due to mitral annular calcification. Right Ventricle Right ventricle size is normal. Normal right ventricular systolic function. Left Atrium Left atrium is dilated. Right Atrium Right atrium is normal in size. IVC/SVC IVC diameter is less than or equal to 21 mm and decreases greater than 50% during inspiration; therefore the estimated right atrial pressure is normal (~3 mmHg). Mitral Valve There is mitral annular calcification. Mild mitral regurgitation. No mitral stenosis. Tricuspid Valve Normal tricuspid valve without significant regurgitation or stenosis. Aortic Valve There is a trileaflet aortic valve. Mild aortic valve cusp thickening. No aortic regurgitation. No aortic stenosis. Pulmonic Valve The pulmonic valve was not well seen. No Doppler evidence of hemodynamically significant pulmonic stenosis or regurgitation. Ascending Aorta The sinuses of Valsalva and ascending aorta sizes are normal for the patient's age and body surface area. Pericardium No pericardial effusion. Pulmonary Artery Estimated pulmonary artery pressure is 30 mmHg. Atrial Septum No interatrial shunt detected by color flow Doppler. Study Details A complete echo was performed using 2D imaging, color flow Doppler and complete spectral Doppler. Myocardial deformation imaging was performed using Hole 19. During the study the apical, parasternal, subcostal and suprasternal view was captured. Overall the study quality was adequate. STRESS ECHO OVERALL FINDINGS Normal RV size and systolic function. Lauren Hancock MD CV ECHO PROCEDURES Final Result documented in this encounter Visit Diagnoses Diagnosis Encounter for pre-transplant evaluation for liver transplant documented in this encounter Care Teams Diesel Engine Operator Relationship Specialty Start Date End Date Darius Tamayo MD [address] [place] [phone] PCP - General Gastroenterology 12/22/24 documented as of this encounter
--- OUTSIDE RECORDS SUMMARY | 2025-01-15 11:45 | XMS_ITS | Encounter Summary ---
Author Organization [facility] Address [address] [place] [address] Care Team Providers Care Technical Communication Teacher Name Role Phone Darius Tamayo MD Primary Care Provider [phone] Reason for Visit * Transplant (Routine) - Authorized Specialty Diagnoses / Procedures Referred By Lisa betts Referred To Contact Transplant Diagnoses Liver Transplant Evaluation Darius Tamayo MD [address] [place] [address] Phone: tel: fax: [facility] Liver Transplant Services [address] [place] [phone] Phone: tel: fax: Referral ID Status Reason Start Date Expiration Date V isits Requested Visits Authorized [id number] Authorized 12/01/2024 06/02/2026 50 50 Encounter Details Date Type Department Care Team (Late st Contact Info) Description 01/15/2025 11:45 AM EDT Office Visit [facility] Liver Transplant Services [address] [place] [id number] Da Robb RN Encounter for pre-transplant evaluation for liver transplant Social History Tobacco Use Types Packs/Day Years [...] on file documented as of this encounter Progress Notes * Da Robb RN - 01/15/2025 11:45 AM EDT Walt Torres came to transplant clinic for a liver transplant evaluation. The patient was checked in , VS done and medications/ allergies reviewed. Patient will continue with liver evaluation. documented in this encounter Plan of Treatment Upcoming Encounters Date Type Department Care Team (Late st Contact Info) Description 02/12/2025 11:00 AM EDT Office Visit [facility] Building 4th floor Cardiology Medicine [address] [place] [address] Basketball Coach: James Reynoso MD [address] [place] [address] 03/18/2025 2:00 PM EST Follow-Up [facility] Transplant Services [address] [place] [address] Lauren Hancock MD [address] [place] [address] documented as of this encounter Visit Diagnoses Diagnosis Encounter for pre-transplant evaluation for liver transplant documented in this encounter Care Teams Technical Communication Teacher Relationship Specialty Start Date End Date Darius Tamayo MD [address] [place] [phone] PCP - General Gastroenterology 12/22/24 documented as of this encounter
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
--- OUTSIDE RECORDS SUMMARY | 2025-01-15 13:00 | XMS_ITS | Encounter Summary ---
Author Organization [facility] Address [address] [place] [address] Care Team Providers Care Origination Specialist Name Role Phone Darius Tamayo MD Primary Care Provider [phone] Reason for Visit * Transplant (Routine) - Authorized Specialty Diagnoses / Procedures Referred By Lisa betts Referred To Contact Transplant Diagnoses Liver Transplant Evaluation Darius Tamayo MD [address] [place] [phone] Phone: tel: fax: [facility] [address] [place] [address] Phone: tel: fax: Referral ID Status Reason Start Date Expiration Date V isits Requested Visits Authorized [id number] Authorized 12/01/2024 06/02/2026 50 50 Encounter Details Date Type Department Care Team (Late st Contact Info) Description 01/15/2025 1:00 PM EDT Office Visit [facility] [address] [place] [id number] Mihai Blank MD [address] [place] [phone] Encounter for pre-transplant evaluation for chronic liver disease (Primary Dx) Social History Tobacco Use Types Packs/Day Years [...] as of this encounter Progress Notes * Mihai Blank MD - 01/15/2025 1:30 PM EDT Transplant service psychiatry I met with Walt in the transplant clinic as part of multidisciplinary evaluation to consider her for placement on the liver transplant waitlist. I spent 25 minutes interviewing the patient and additional 9 minutes reviewing her record to prepare for the visit, dictating this note, do the necessary test to complete the encounter for total of 34 minutes spent on her care today. She is a 69-year-old woman who is a confederated goshute Panamanian speaker who is fluent in [place] She was diagnosed with hepatitis C and hepatic cirrhosis years ago in [place] and was told thatwhile she needed treatment for hepatitis C it was not immediately available and if she did not she might be able to get it at some point. Walt took initiative and contacted her daughter who lives in [facility] and made arrangements to come to the [facility] where she was able to complete a course of the potent and effective antihepatitis C medications in 2016. However she was found to have 2 hepatocellular carcinoma lesions as well as worsening cirrhosis. The patient states that with the exception of a degree of fatigue and lower tolerance of physical exertion she has not had other symptoms. She lives with her daughter and a variety of family members including grandchildren and great-grandchildren in the vicinity of [facility]. She reports that years ago in the context of a divorce she did have some depression but on her own undertook a process of writing down her thoughts and feelings extensively and then reviewing the papers she had written tearing up each 1 after reading it and somehow essentially it relieved her depression at that time. She did not continue journaling after that. She is not adventure and went with family on a cruise along the coast of [place] a few years ago. At1 point she was contemplating getting a ride in a submarine but she states her hyperion analyst warned her against that because of her atrial fibrillation. Subsequently she had an ablation for the atrialfibrillation which she states alleviated the condition. She denies use of alcohol or other drugs of abuse. She denied serious depression or anxiety or excessive and unnecessary worrying. She denied panic attacks. She describes a very supportive family network where she lives. Her daughter who is here with her today had run out to get some food and refreshment for the patient so she only joined us towards the end of our encounter. Walt is an alert attentive and outgoing woman who is quite articulate in Kyrgyz and expresses herself very well. Her speech is normal rate and tone. Her thought was coherent goal-directed and logical. She has a full range of motion expression and affect. Cognitive functioning appears normal.Insight and judgment are excellent and cognitive functioning appears normal. There is no psychomotor or cognitive slowing or delay in imaging answering questions. She has capacity to consent to liver transplant surgery or other aspects of medical and surgical care and treatment. She denies history of substance use disorder or of mental health disorder except for what sounds like an adjustment reaction with some depression in the context of a divorce a number of years ago. She did not require psychiatric treatment for it and was able to find a way of relieving her emotionaldistress through journaling and then literally turning up to journal pages once she had a chance toread them after completing the task. I did not identify any absolute contraindications from a psychosocial perspective that would prevent her from being placed on the liver transplant waitlist. She presently is very highly motivated and intelligent person who would work collaboratively with the transplant service. documented in this encounter Plan of Treatment Upcoming Encounters Date Type Department Care Team (Late st Contact Info) Description 02/12/2025 11:00 AM EDT Office Visit [facility] 4th floor Cardiology Medicine [address] [place] [phone] Service Associate: James Reynoso MD [address] [place] [phone] 03/18/2025 2:00 PM EST Follow-Up [facility] [address] [place] [phone] Lauren Hancock MD [address] [place] [phone] documented as of this encounter Visit Diagnoses Diagnosis Encounter for pre-transplant evaluation for chronic liver disease- Primary documented in this encounter Care Teams Origination Specialist Relationship Specialty Start Date End Date Darius Tamayo MD [address] [place] [id number] PCP - General Gastroenterology 12/22/24 documented as of this encounter
--- OUTSIDE RECORDS SUMMARY | 2025-01-15 13:45 | XMS_ITS | Encounter Summary ---
Author Organization [facility] Address [address] [place] [address] Care Team Providers Care Process Manager Name Role Phone Darius Tamayo MD Primary Care Provider [phone] Reason for Visit * Transplant (Routine) - Authorized Specialty Diagnoses / Procedures Referred By Lisa betts Referred To Contact Transplant Diagnoses Liver Transplant Evaluation Darius Tamayo MD [address] [place] [phone] Phone: tel: fax: [facility] [address] [place] [phone] Phone: tel: fax: Referral ID Status Reason Start Date Expiration Date V isits Requested Visits Authorized [id number] Authorized 12/01/2024 06/02/2026 50 50 Encounter Details Date Type Department Care Team (Late st Contact Info) Description 01/15/2025 1:45 PM EDT Nutrition [facility] [address] [place] [id number] [facility], [place] Encounter for pre-transplant evaluation for liver transplant (Primary Dx) Social History Tobacco Use Types [...] as of this encounter Progress Notes * Corina Coleman, RD - 01/15/2025 2:43 PM EDT Images from the original note were not included. [facility] Transplant Nutrition Age / Gender: 69 yo female Reason for Visit: Transplant evaluation Accompanied by: daughter Past Medical History: Class I obesity Afib on digoxin, eliquis H. 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 Decreased appetite occurredin past month when treatment started. Says she used to eat 3 meals/day prior to December and has since decreased. Says she still enjoys salads, hot foods, tuna fish, beans. Therapeutic diet: none Oral nutrition supplement: occasionally drinks Life Shake which contain 20 grams protein Chewing / swallowing issues affecting intake: no Meal planning / grocery shopping / preparation: pt cooks herself and buys groceries for herself Meals from outside home frequency: 2x/mo. Typically eats out when she is with her daughter Food insecurity / Hunger Vital Sign Screening Tool: denies concerns Food Allergies; Intolerance: says she is allergic to shelfish/seafood but eats tuna fish 24-hour Recall: Breakfast: coffee with milk at 9-10AM Lunch: skips Dinner: rice, beans, meat at 8PM Snacks/desserts: occasionally at 2PM will munch on soup, bread, something light Beverages: coffee, sips of Life Shake Pertinent Labs Latest Ref Rng & Units 12/22/2024 2:14 PM Basic Metabolic Panel Sodium 135 - 145 mmol/L 141 Potassium 3.5 - 5.3 mmol/L 3.9 Chloride 98 - 107 mmol/L 101 Carbon Dioxide 22 - 32 mmol/L 27 Glucose 65 - 99 mg/dL 85 Creatinine 0.50 - 1.20 mg/dL 0.77 Calcium 8.6 - 10.5 mg/dL 10.5 EGFR >=60 mL/min/1.73m2 >=60 NA 83 38 T bili 0.6, albumin 3.8 Vitamin D 62 ng/mL on 12/22/24 Vitamin A 29 mcg/dL (low) on 12/22/24 Pertinent Medications Walt has a current medication list which includes the following prescription(s): atorvastatin, calcium carbonate-vitamin d3, cholecalciferol, eliquis, hydrochlorothiazide, lidocaine, metoprololtartrate, mometasone furoate, montelukast, tramadol, vitamin a, and zinc sulfate. Vitamins and Minerals Vitamin D3, calcium and vitamin D3, vitamin A, zinc sulfate Food & Drug Interaction(s): statin/grapefruit Cultural, Ethnic, Baptist Restrictions: None reported Social: lives with daughter and family members including grandchildren and great-grandchildren Tobacco: none Alcohol: none Recreational Drugs: none Anthropometrics Height: 58.5 inches Weight: 147 lb 11.3 oz Usual body weight (UBW): 180 lb in past year [place] body weight (IBW): 97 lb BMI = 30.4 BMI = class 3 obesity Wt Readings from Last 10 Encounters: 01/15/25 67 kg (147 lb 11.3 oz) 01/15/25 66.2 kg (146 lb) 12/22/24 66.4 kg (146 lb 6.2 oz) Nutrition-Focused Physical Exam Integumentary/Skin: no rashes, lesions, ulcers on exposed skin Muscle mass: mild muscle wasting to temples Fat mass: no fat wasting noted Fluid accumulation: mild edema to lower extremities Physical activity: says she walks and frequently house cleans which she says keeps her active FRAIL score: 2/5 indicates pre-frail Liver Frailty Index: 4.08 indicates pre-frail Hand shoe fitter: average 18.7 kg is 0.5 kg below average normative shoe fitter strength for age, gender, and hand used Pain / oral health / skin integrity affecting nutritional status: none Assessed Nutrient Needs Estimated Energy Needs: 1575 calories per day based on calories per kg (35 kcal/kg IBW) Estimated Protein Needs: 55 grams protein per day based on grams protein per kg (1.2 gm/kg IBW) Nutrition Diagnosis Food and nutrition related knowledge deficit related to post transplant nutrition guidelines as evidenced by pre-transplant evaluation status. Inadequate energy and protein intake related to change in appetite after recent procedure as evidenced by food recall. Nutrition Goal(s) Patient will verbalize a basic understanding of pre and post-transplant nutrition guidelines and the importance of compliance to optimize surgical outcome and prevent food borne illness. Patient will increase to at least 3 or more meals and snacks including protein with each meal. Nutrition Interventions Meals and Snacks: Incorporate small frequent meals and aim to eat 4-6x/day. Add snacks or protein shakes in between meals and encouraged to incorporate more protein in food. Oral Nutrition Supplements: encouraged to drink 1-2 protein shakes throughout the day to increase energy/protein intake. Vitamins and Minerals: Continue to take calcium carbonate-D3 2 tablets 2x/day, D3 1x/day, vitamin A1 capsule/day, and zinc 1 capsule/day Nutrition related medication: avoid grapefruit juice as it interacts with lipitor and eliquis Physical Activity: Continue to stay active by walking, house cleaning, and moving around when able Nutrition Education: Learner(s): patient and daughter Methods: verbal explanation; written handout(s) Comment: pre and post transplant nutrition guidelines Level of understanding: verbalized understanding and asked questions Readiness for education: ready to make changes Coordination of Care: Patient???s candidacy for listing for transplant will be discussed at the multi-disciplinary Selection Committee Meeting. Monitoring & Evaluation Energy and protein intake: food recall or record indicates adequacy Adherence: food recall or record indicates adherence with prescribed therapeutic diet Weight: minimize fluctuations resulting from fluid accumulation and / or loss of lean muscle mass Electrolyte and Renal Profile: electrolytes within acceptable limits Glucose and Endocrine Profile: glucose within acceptable limits Gastrointestinal Profile: function; LFTs Vitamin Profile: monitor vitamin A levels in 2 months Lipid Profile: per MD Food & Nutrition Knowledge: understanding Physical Activity: type; intensity; frequency; duration Nutrition-Focused Physical Exam: skin, edema, muscle mass, fat mass Summary: BMI: 30.38, class I obesity Malnutrition diagnosis: none Significant weight changes: 18% weight loss in less than 6 months per patient report Intake adequacy: not adequate - likely meeting 25-50% of EER in past month Functional capacity: FRAIL score: 2/5 indicates pre-frail Liver Frailty Index: 4.08 indicates pre-frail Skin integrity: no rashes, lesions or ulcers on exposed skin Hyperlipidemia management: on statin Vitamin / mineral status: vitamin A is low; currently taking 10,000 international unit(s) vitamin Adaily [facility] Nutrition Prioritizing Tool Score: 4 = high risk From a nutrition perspective, the patient is a good candidate and understands importance of nutrition. However, pt has had significant wt loss in past 4 mo. She was receptive to nutrition education and understands she needs to increase energy/protein intake and eat regular meals and protein shakes. Follow up: Provided my contact information if the patient or family have further nutrition questions. Thank you for involving me in this patient's care. Melanie Corona, Home Care Scheduler Corina Coleman RDN, LDN, CCTD Transplant Dietitian documented in this encounter Plan of Treatment Upcoming Encounters Date Type Department Care Team (Late st Contact Info) Description 02/12/2025 11:00 AM EDT Office Visit [facility] 4th floor Cardiology Medicine [address] [place] [address] Event Management Consultant: James Reynoso MD [address] [place] [address] 03/18/2025 2:00 PM EST Follow-Up [facility] [address] [place] [address] Lauren Hancock MD [address] [place] [phone] documented as of this encounter Visit Diagnoses Diagnosis Encounter for pre-transplant evaluation for liver transplant- Primary documented in this encounter Care Teams Process Manager Relationship Specialty Start Date End Date Darius Tamayo MD [address] [place] [address] [phone] PCP - General Gastroenterology 12/22/24 documented as of this encounter
--- OUTSIDE RECORDS SUMMARY | 2025-01-15 14:30 | XMS_ITS | Encounter Summary ---
Author Organization [facility] Address [address] [place] [address] Care Team Providers Care Fisher Seal Name Role Phone Darius Tamayo MD Primary Care Provider Reason for Visit * Reason Comments Liver Eval * Transplant (Routine) - Authorized Specialty Diagnoses / Procedures Referred By Contdottie t Referred To Contact Transplant Diagnoses Liver Transplant Evaluation Darius Tamayo MD [address] [place] [phone] Phone: tel: fax: [facility] [address] [place] [phone] Phone: tel: fax: Referral ID Status Reason Start Date Expiration Date V isits Requested Visits Authorized [id number] Authorized 12/01/2024 06/02/2026 50 50 Encounter Details Date Type Department Care Team (Latest Contact Info) Description 01/15/2025 2:30 PM EDT Office Visit [facility] [address] [place] [phone] Shaila Posey MD [address] [place] [phone] Encounter for pre-transplant evaluation for chronic liver disease (Primary Dx); Metabolic dysfunction-associated steatohepatitis (MASH); Hepatocellular carcinoma (HCC); Chronic hepatitis C without hepatic coma (HCC); Screening examination for infectious disease; Positive CMV IgG serology; EBV seropositivity; Immune to hepatitis B; Immune to hepatitis A Social History Tobacco Use Types Packs/Day Years [...] Sign Reading Time Taken Comments Blood Pressure 126/79 01/15/2025 12:19 PM EDT Pulse 59 01/15/2025 12:19 PM EDT Temperature 36.6 C (97.8 F) 01/15/2025 12:19 PM EDT Respiratory Rate 18 01/15/2025 12:19 PM EDT Oxygen Saturation 97% 01/15/2025 12:19 PM EDT Inhaled Oxygen Concentration - - Weight 67 kg (147 lb 11.3 oz) 01/15/2025 12:19 P M EDT Height - - Body Mass Index 30.38 01/15/2025 10:41 AM EDT documented in this encounter Progress Notes * Shaila Posey MD - 01/15/2025 12:24 PM EDT INFECTIOUS DISEASES CONSULT IN [facility] History of Present Illness: 69 y.o. female with a history of obesity, Afib on digoxin, Eliquis, H pylori, asthma, HTN, JUAN MANUEL and bilateral salpingo-oophorectomy compensated MASH/hepatitis C cirrhosis with portal hypertension complicated by HCC presents to the clinic for pretransplant evaluation for liver transplant She was diagnosed with liver disease in 2015 when she was found to have hepatitis C while in [facility]. She reports receiving treatment for him but unclear about the name though she has had SVR since then. She eventually developed cirrhosis which has been complicated by esophogeal varix. She does not have history of SBP. She denies any hospitalizations or infectious complications due to liver disease. She was found to have HCC in 08/2024 for which underwent chemoembolization caudate in segment 7 lobe hepatomas on 12/01/2024. She otherwise denies any fevers, chills, abdominal pain, nausea, vomiting,diarrhea, rash, joint pain or swelling, headaches, urinary symptoms. MELD score of 9 on 12/22/24 She is seropositive for CMV, EBV, HSV-1, and VZV and seronegative for HSV-2 and Toxoplasma. She is immune to Hepatitis A, Hepatitis B, Mumps, Measles, and Rubella She is upto date with vaccinations: Hepatitis B, Influenza, Tdap, and Pneumococcus with 1 dose of Shingrix and 11/2020 and last dose of COVID-19 vaccine in 08/2020 Recent infections/Infectious Disease History - H. Pylori found during EGD in 2021 s/p levofloxacin, amoxicillin and pantoprazole Review of Systems: All systems reviewed and other wetzel negative for new finidngs. Medical History: No past medical history on file. Surgical History: No past surgical history on file. TB Screening History: She denies any prior history of positive TB screening test. She denies any prior history of known exposures to TB or latent TB. Current Medications: Current Outpatient Medications Medication Sig Dispense Refill atorvastatin (LIPITOR) 20 mg tablet Take 1 tablet (20 mg total) by mouth once a day. 30 tablet 11 calcium carbonate-vitamin D3 600 mg-10 mcg (400 unit) per tablet Take 2 tablets by mouth 2 times a day. cholecalciferol (VITAMIN D3) 25 mcg (1,000 unit) tablet Take 1,000 Units by mouth once a day. Eliquis 5 mg tablet Take 5 mg by mouth every 12 hours. hydroCHLOROthiazide (HYDRODIURIL) 25 mg tablet 25 mg once a day. lidocaine (LIDODERM) 5% patch Apply 1 patch topically to the affected area daily. metoprolol tartrate (LOPRESSOR) 50 mg tablet Take 50 mg by mouth 2 times a day. MOMETASONE FUROATE, BULK, MISC 2 Inhalations as needed. montelukast (SINGULAIR) 10 mg tablet Take 10 mg by mouth at bed time. at bedtime. traMADoL (ULTRAM) 50 mg tablet Take 50 mg by mouth every 12 hours as needed for pain. vitamin A 3,000 mcg (10,000 unit) capsule Take 1 capsule (10,000 Units total) by mouth once a day. 30 capsule 2 zinc sulfate (ZINCATE) 50 mg zinc (220 mg) capsule Take 1 capsule (50 mg of elemental zinc total) by mouth once a day. 30 capsule 0 No current facility-administered medications for this visit. Immunizations: Immunization History Administered Date(s) Administered Covid-19 Monovalent Vaccine, Erika Patterson PF 07/19/2020, 08/16/2020 Allergies: Allergies Allergen Reactions Rivaroxaban GI bleeding GIB Shellfish Derived Anaphylaxis Patient reported Social History: Household: lives with son age 33 Regular contact with small children? 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 Outdoor activities: No particular hobbies [place] states or countries of residence: Born in [place], moved to in [place], has lived in [place] and [place] for many years. Last visit to [place] was last year International travel: [place] and [place] (few months ago), planning to travel to [facility] in 03/2025 service: no Congregate settings: none Raw foods: none Water source: city water Family History: No family history on file. Physical Exam: weight is 67 kg (147 lb 11.3 oz). Her oral temperature is 36.6 ??C (97.8 ??F). Her blood pressure is 126/79 and her pulse is 59 (abnormal). Her respiration is 18 and oxygen saturation is 97%. Temp: [36.6 ??C (97.8 ??F)] 36.6 ??C (97.8 ??F) Heart Rate: [59] 59 Resp: [18] 18 BP: (126-146)/(79-80) 126/79 SpO2: [97 %] 97 % GENERAL: The patient is neatly and appropriately dressed SKIN: The skin exam is notable for the absence of rash HEENT: Normocephalic and atraumatic. Head and neck exam is notable for the fact that pupils are equal, round, reactive to light. Sclerae are nonicteric. The mucosa shows no evidence of jaundice, thrush or other lesions. LUNGS: Clear to auscultation and percussion without wheezes, rhonchi or rales. CARDIOVASCULAR: Has regular rate and rhythm without murmurs, rubs or gallops. ABDOMEN: Bowel sounds present. Abdomen is soft and non tender EXTREMITIES: Extremities are notable for absence of cyanosis, clubbing or pedal edema. NEURO: Gait normal. Alert and awake Labs Review: SEROLOGY: Pre-transplant ID labs: Date Test Result 12/22/2024 CMV IgG Positive EBV IgG Positive HSV 1 IgG Positive HSV 2 IgG Negative Varicella Zoster IgG Positive Measles IgG Positive Rubella IgG Positive Mumps IgG Positive HIV (4th gen Ab/Ag test) Nonreactive Hepatitis A total antibody Reactive Hepatitis B core antibody Nonreactive Hepatitis B surface antibody Reactive Hepatitis B surface antigen Nonreactive Hepatitis C antibody Reactive Hepatitis C RNA levels Not detected QuantiFERRON Gold Negative RPR Nonreactive Toxoplasma IgG Negative Imagin12/2024 CT chest: CAD and atherosclerotic disease. 5 mm ground glass nodule in the left upper lobe. Moderate multilevel degeneration. Normal lymph nodes 08/2024 MRI abdomen: Cirrhosis. Hypertrophy of left lobe. Patent veins and no biliary duct dilatation. Masses identified in segment 8 and 1. Cholelithiasis. Assessment/Plan Problem List None Visit Diagnoses Encounter for pre-transplant evaluation for chronic liver disease - Primary Relevant Orders Strongyloides Antibody, IgG Metabolic dysfunction-associated steatohepatitis (MASH) Hepatocellular carcinoma (HCC) Chronic hepatitis C without hepatic coma (HCC) Screening examination for infectious disease Relevant Orders Strongyloides Antibody, IgG Positive CMV IgG serology EBV seropositivity Immune to hepatitis B Immune to hepatitis A Impression: 1) Pretransplant evaluation for liver transplant 2) Compensated cirrhosis secondary to MASH/HCC Complicated by small esophageal varix 3) history of hepatitis C Diagnosed in 2016 without any clear etiology s/p unknown treatment with SVR since then 4) hepatocellular carcinoma S/p chemoembolization of caudate in segment 7 lobe hepatomas on 12/01/2024 5) Hepatitis immune status: Immune to hepatitis A and B so no further vaccination required. 6) On immunosuppression: None 7) Allergies to anti-microbials: None 8) Hardware/Foreign Material-None 9) Other infections: History of H. pylori in 09/2021 s/p treatment with levofloxacin, amoxicillin and pantoprazole At this time, there appear to be no infectious disease contraindications to listing this patient for transplant. Recommendations, and Issues Addressed Today: Vaccines to be scheduled: 2nd dose of Shingles vaccines New COVID-19 vaccine New Influenza vaccine when available A list of recommended vaccinations was given to the patient Perioperative antimicrobial prophylaxis: Pre-operative Ceftriaxone to be given. CMV: Pre-emptive monitoring with weekly CMV levels for 3 months HSV: acyclovir/valacyclovir for 3 months Pneumocystis: Bactrim for 12 months Anti-fungal: nystatin swish and swallow for 1 months or fluconazole if meets the criteria for its use Latent TB assessment: Patient is low risk for latent TB. Screening test for TB is negative. Recent chest imaging with CT does not show any evidence of prior exposure. No further testing is warranted at this time. Epidemiologically based screening: following tests are indicated- Strongyloides IgG Pre-transplant infectious disease education provided at this visit. We discussed ways to prevent infection after transplant, especially by handwashing and discussed exposures that could increase the risk of infection and behaviors to minimize this risk. We discussed avoiding exposure to animal enclosures or waste products, or using mask/gloves when exposure is necessary , avoiding animal scratches/bites , avoiding raw or undercooked meat or seafood , washing skin injuries with soap and water, and monitoring for signs of infection , checking well water for bacteria and parasites. Orders Placed This Encounter Strongyloides Antibody, IgG I spent a total of 45 minutes on the date of encounter, which included: ?? Preparing to see the patient (e.g., review of test results) ?? Obtaining and/or reviewing separately obtained history ?? Performing a medically appropriate exam and/or evaluation ?? Counseling and educating the patient/family/caregiver ?? Ordering medications, tests, procedures ?? Documenting clinical information in the health record ?? Independently interpreting results (not separately reported) and communicating results to the patient/family/caregiver Shaila Posey MD Transplant Infectious Diseases documented in this encounter Plan of Treatment Upcoming Encounters Date Type Department Care Team (Late st Contact Info) Description 02/12/2025 11:00 AM EDT Office Visit [facility] Building 4th floor Cardiology Medicine [address] [place] [id number] Studio Operator: James Reynoso MD [address] [place] [phone] 03/18/2025 2:00 PM EST Follow-Up [facility] [address] [place] [phone] Lauren Hancock MD [address] [place] [phone] Scheduled Orders Name Type Priority Associated Diagnoses Orde r Schedule Strongyloides Antibody, IgG Lab Routine Encounter for pre-transplant evaluation for chronic liver disease Screening examination for infectious disease Expected: 01/15/2025, Expires: 01/15/2026 documented as of this encounter Visit Diagnoses Diagnosis Encounter for pre-transplant evaluation for chronic liver disease- Primary Metabolic dysfunction-associated steatohepatitis (MASH) Hepatocellular carcinoma (HCC) Malignant neoplasm of liver, primary Chronic hepatitis C without hepatic coma (HCC) Screening examination for infectious disease Screening examination for unspecified infectious disease Positive CMV IgG serology EBV seropositivity Immune to hepatitis B Other specified conditions influencing health status Immune to hepatitis A Other specified conditions influencing health status documented in this encounter Care Teams Fisher Seal Relationship Specialty Start Date End Date Darius Tamayo MD [address] [place] [phone] PCP - General Gastroenterology 12/22/24 documented as of this encounter
--- OUTSIDE RECORDS SUMMARY | 2025-01-15 15:15 | XMS_ITS | Encounter Summary ---
Author Organization [facility] Address [address] [place] [address] Care Team Providers Care Deputy General Counsel Name Role Phone Darius Tamayo MD Primary Care Provider Reason for Visit * Transplant (Routine) - Authorized Specialty Diagnoses / Procedures Referred By Lisa t Referred To Contact Transplant Diagnoses Liver Transplant Evaluation Darius Tamayo MD [address] [place] [address] Phone: tel: fax: [facility] [address] [place] [phone] Phone: tel: fax: Referral ID Status Reason Start Date Expiration Date V isits Requested Visits Authorized [id number] Authorized 12/01/2024 06/02/2026 50 50 Encounter Details Date Type Department Care Team (Late st Contact Info) Description 01/15/2025 3:15 PM EDT Office Visit [facility] [address] [place] [phone] Nikko Pagan MD [address] [place] [phone] Social History Tobacco Use Types Packs/Day Years [...] as of this encounter Progress Notes * Luiz Monge MD - 01/15/2025 1:01 PM EDT Reason For Visit Walt Torres is a 69 y.o. female who presents today for evaluation of liver transplantwith Dr. Pagan. History of Present Illness: Walt Torres is a 69 y.o. 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 She reports treatment for HepC in 2015. She had an abdominal MRI to evaluate a liver lesion 07/2022, and on MRI 08/2024 there was a 2.4cm segment 8 LR-5 lesion and a 2.1 segment LR-5 lesion consistent with HCC. She underwent chemoembolization to both lesions 11/2024. Of note she had an EGD in 2021 with one small varix noted. She is seen today in clinic for liver transplant evaluation. She confirms the above history. Reports no alcohol or substance use. No history of ascites or TIPS. Date of initial liver disease diagnosis: HCC dx 08/2024 If viral therapy (for HCV and/or HBV), treatments and response/most recent viral load: reports treatment for Hep C in 2015, and 12/22 HCV viral load undetectable. Complications of liver disease: HCC: Yes Previous resection: No Local regional therapy: Yes 11/2024 - chemoembolization Systemic therapy: No Varices: Yes GI bleed: No Most recent EGD: 2021 Variceal banding: No Portal gastropathy: No Hypersplenism: No Ascites: No Last paracentesis/interval: n/a History of SBP: No Hernia: No Complications of hernia: No Hernia Repair: No TIPS: No Jaundice: No Pruritus: No Encephalopathy (G1-sleep/wake disturbance, G2-memory loss/personality change, G3-somnolence, G4-coma): No, Grade: Abdominal pain: No Diarrhea/hemorrhoids: No Peripheral edema: No Weight loss: No Muscle wasting: No Fatigue: No Hepatorenal syndrome: No Most recent serum creatinine: 0.82 On dialysis: No Other: none Additional GI history: Prior upper abdominal surgery: Yes. Abdominal hysterectomy and bilateral salpingo-oophorectomy mid-, C section x3 GERD/PUD: No Biliary abnormalities: No Prior colonoscopy: Yes A few small tubular adenoma (<10 mm) in 2021 Medications: Current Outpatient Medications Medication Sig Dispense [...] No current facility-administered medications for this visit. Allergies: Allergies Allergen Reactions Rivaroxaban GI bleeding GIB Shellfish Derived Anaphylaxis Patient reported Medical History: No past medical history on file. Surgical History: No past surgical history on file. Family History: No family history on file. Social History: Social History Socioeconomic History Marital status: Spouse name: Not on file Number of children: Not on file Years of education: Not on file Highest education level: Not on file Occupational History Not on file Tobacco Use Smoking status: Former Types: Cigarettes Smokeless tobacco: Never Vaping Use Vaping status: Never Used Substance and Sexual Activity Alcohol use: Never Drug use: Never Sexual activity: Not on file Other Topics Concern Not on file Social History Narrative Not on file Social Drivers of Health Food: Low Risk (01/16/2024) Received from [facility] Food Insecurity Within the past 12 months, you worried that your food would run out before you got money to buy more:: Never True Within the past 12 months,the food you bought just didn't last and you didn't have enough money to get more: : Never True Transportation: Low Risk (01/16/2024) Received from [facility] Transportation In the past 12 months, has lack of transportation kept you from medical appts, meetings, work or from getting things needed for daily living? : No Review of Systems: Per HPI. Physical Exam: Temp: [36.6 ??C (97.8 ??F)] 36.6 ??C (97.8 ??F) Heart Rate: [59] 59 Resp: [18] 18 BP: (126-146)/(79-80) 126/79 SpO2: [97 %] 97 % General Appearance: Alert, cooperative, no distress, appears stated age Head: Normocephalic, without obvious abnormality, atraumatic Eyes: PERRL, conjunctiva/corneas clear, EOM's intact, no scleral icterus Ears: Normal external pinnae, both ears Throat: Lips, mucosa, and tongue normal; teeth and gums normal Neck: Supple, symmetrical, trachea midline, no adenopathy Lungs: Respirations unlabored Cardiac: Warm and well-perfused Abdomen: Soft, non-tender, obese. Extremities: Extremities normal, atraumatic, no cyanosis. Skin: Skin color, texture, turgor normal, no rashes or lesions. No jaundice Neurologic: Non-focal Labs Review: Blood Type: A Lab Results Component Value Date WBC 4.9 12/22/2024 HGB 12.1 12/22/2024 HCT 37.6 12/22/2024 PLT 113 (L) 12/22/2024 NA 141 12/22/2024 K 3.9 12/22/2024 CL 101 12/22/2024 CO2 27 12/22/2024 CREATININE 0.77 12/22/2024 BUN 12 12/22/2024 AST 35 12/22/2024 ALT 30 12/22/2024 TSH 3.360 12/22/2024 INR 1.2 12/22/2024 BILITOT 0.6 12/22/2024 ALKPHOS 71 12/22/2024 AFP 31.3 (H) 12/22/2024 ALBUMIN 3.8 12/22/2024 ALBUMIN 3.9 12/22/2024 Lab Results Component Value Date AFP 31.3 (H) 12/22/2024 CA 19-9: MELD Score: MELD 3.0: 9 at 12/22/2024 2:14 PM MELD-Na: 8 at 12/22/2024 2:14 PM Calculated from: Serum Creatinine: 0.77 mg/dL (Using min of 1 mg/dL) at 12/22/2024 2:14 PM Serum Sodium: 141 mmol/L (Using max of 137 mmol/L) at 12/22/2024 2:14 PM Total Bilirubin: 0.6 mg/dL (Using min of 1 mg/dL) at 12/22/2024 2:14 PM Serum Albumin: 3.9 g/dL (Using max of 3.5 g/dL) at 12/22/2024 2:14 PM INR(ratio): 1.2 at 12/22/2024 2:14 PM Age at listing (hypothetical): 69 years Sex: Female at 12/22/2024 2:14 PM Cardiac Evaluation: Prior Echo Procedures Transthoracic echo (TTE) Exam End: 01/15/2025 11:47 AM (In process) Recent Stress Echocardiogram No resulted procedures found. Recent Cardiac Cath No resulted procedures found. Imaging Recent Abdominal CT No resulted procedures found. Recent Abdominal MRI No resulted procedures found. Liver Transplant Assessment and Plan Walt Torres is a 69 y.o. 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 She underwent chemoembolization to two hepatic lesions 11/2024. Currently her MELD is 9. She does not use alcohol. Issues identified during the consultation today which need further attention and may impact on the patient's candidacy for transplant include: Recent treatment of HCC The following transplant-specific surgical concerns were identified: Prior abdominal surgeries: Yes , abdominal hysterectomy and bilateral salpingo- oophorectomy mid-, C section x3 Central obesity / significant pannus (separate from ascites): Yes Additional concerns: I have reviewed the above with Dr. Pagan. Please refer to their attestation and further discussion with the patient. Luiz Monge MD PGY-1 documented in this encounter Plan of Treatment Upcoming Encounters Date Type Department Care Team (Late st Contact Info) Description 02/12/2025 11:00 AM EDT Office Visit [facility] Building 4th floor Cardiology Medicine [address] [place] [address] Rattan Worker: James Reyonso MD [address] [place] [address] [phone] 03/18/2025 2:00 PM EST Follow-Up [facility] [address] [place] [address] Lauren Hancock MD [address] [place] [phone] documented as of this encounter Visit Diagnoses Not on filedocumented in this encounter Care Teams Deputy General Counsel Relationship Specialty Start Date End Date Darius Tamayo MD [address] [place] [phone] PCP - General Gastroenterology 12/22/24 documented as of this encounter
--- NOTE | ~2025-01-18 | XR_ITS ---
EXAMINATION: XR CERVICAL SPINE CLINICAL INFORMATION: neck pain, right side, difficulty turning head COMPARISON: October 03, 2016. Correlated to CT cervical spine dated December 31, 2023. TECHNIQUE: AP lateral, swimmer's and atlantoodontoid views. FINDINGS: Craniocervical junction is intact. There is marginal osteophyte formation and decreased intervertebral disc height and subchondral cyst formation at C3-4 C4-5 and to a lesser extent C5-6. There is a grade 1 retrolisthesis C4-5. No lytic or blastic lesions. No acute cortical disruption. Upper airway is patent. XR/XR cervical spine 3V IMPRESSION: Multilevel cervical spondylosis C3 C6 resulting in grade 1 retrolisthesis, C4-5. Electronically signed by: Slim Gómez MD 01/18/2025 03:22 PM EDT
--- OUTSIDE RECORDS SUMMARY | 2025-01-18 13:45 | XMS_ITS | Encounter Summary ---
Author Organization [employer] Address 75 [facility] 7t [place] [address] Care Team Providers Care Deburring Technician Name Role Phone Tom Trujillo Primary Care Provider [phone] Everett Rojas MD Unavailable [phone] Encounter Details Date Type Department Care Team (Late st Contact Info) Description 01/18/2025 1:45 PM EDT Office Visit [facility] MEDICINE 230 [place] [address] Marcela Crook MD [address] [place], [place] [id number] Neck pain (Primary Dx); Dietary counseling; Exercise counseling; Class 1 obesity due to excess calories with serious comorbidity and body mass index (BMI) of 31.0 to 31.9 in adult; Acute pain of right knee; Chronic pain of right knee Social History Tobacco Use Types Packs/Day Years [...] AM EDT documented as of this encounter Last Filed Vital Signs Vital Sign Reading Time Taken Comments Blood Pressure 130/80 01/18/2025 1:39 PM EDT Pulse 76 01/18/2025 1:39 PM EDT Temperature 36 C (96.8 F) 01/18/2025 1:39 PM EDT Respiratory Rate 16 01/18/2025 1:39 PM EDT Oxygen Saturation - - Inhaled Oxygen Concentration - - Weight 68.9 kg (152 lb) 01/18/2025 1:39 PM EDT Height - - Body Mass Index 31.77 10/06/2024 11:24 AM EDT documented in this encounter Plan of Treatment Upcoming Encounters Date Type Department Care Team (Late st Contact Info) Description 02/09/2025 11:00 AM EDT Clinical Support [facility] CHC MED & PEDS 505 [place] [address] Nichole Lucio, RN 505 [place] [address] documented as of this encounter Procedures Procedure Name Priority Date/Time Associated Diagnosis Comments XR CERVICAL SPINE 3V Routine 01/18/2025 3:10 PM EDT Neck pain documented in this encounter Results * XR CERVICAL SPINE 3V (01/18/2025 3:10 PM EDT) Anatomical Region Laterality Modality Abdomen Radiographic Dawn ging 01/18/2025 3:10 PM EDT Narrative 01/18/2025 3:25 PM EDT [address] [address] XRay Report Signed Patient: Walt Rajan MR #: [id number] : 1955 Acct:[id number] Age/Sex: 69 / F ADM Date: 01/18/25 Loc: .HHCX Attending Dr: Marcela Crook MD Ordering Physician: Marcela Crook MD Date of Service: 01/18/25 Procedure(s): XR cervical spine 3V Accession Number(s): [id number] cc: TOM TRUJILLO OUTSOLE CUTTER MACHINE; Marcela Crook MD Reason for Exam: neck pain, right side, difficulty turning head EXAMINATION: XR CERVICAL SPINE CLINICAL INFORMATION: neck pain, right side, difficulty turning head COMPARISON: October 03, 2016. Correlated to CT cervical spine dated December 31, 2023. TECHNIQUE: AP lateral, swimmer's and atlantoodontoid views. FINDINGS: Craniocervical junction is intact. There is marginal osteophyte formation and decreased intervertebral disc height and subchondral cyst formation at C3-4 C4-5 and to a lesser extent C5-6. There is a grade 1 retrolisthesis C4-5. No lytic or blastic lesions. No acute cortical disruption. Upper airway is patent. XR/XR cervical spine 3V IMPRESSION: Multilevel cervical spondylosis C3 C6 resulting in grade 1 retrolisthesis, C4-5. Electronically signed by: Slim Gómez MD 01/18/2025 03:22 PM EDT Dictated By: Slim Torres MD Signed By: <Electronically signed by Slim Mendoza MD in OV> 01/18/25 1522 DD/ 1510 TD/TT: 01/18/25 1513 Rock Crusher Operator: Procedure Note Donotuseinterpreter, Image - 01/18/[address] [address] XRay Report Signed Patient: Kenyon Rajan #: [id number] : 1955cct:[id number] Age/Sex: 69 / FADM Date: 01/18/25 Loc: HO.HHCX Attending Dr: Marcela Crook MD Ordering Physician: Marcela Crook MD Date of Service: 01/18/25 Procedure(s): XR cervical spine 3V Accession Number(s): [id number] cc: TOM TRUJILLO OUTSOLE CUTTER MACHINE; Marcela Crook MD Reason for Exam: neck pain, right side, difficulty turning head EXAMINATION: XR CERVICAL SPINE CLINICAL INFORMATION: neck pain, right side, difficulty turning head COMPARISON: October 03, 2016. Correlated to CT cervical spine dated December 31, 2023. TECHNIQUE: AP lateral, swimmer's and atlantoodontoid views. FINDINGS: Craniocervical junction is intact. There is marginal osteophyte formation and decreased intervertebral disc height and subchondral cyst formation at C3-4 C4-5 and to a lesser extent C5-6. There is a grade 1 retrolisthesis C4-5. No lytic or blastic lesions. No acute cortical disruption. Upper airway is patent. XR/XR cervical spine 3V IMPRESSION: Multilevel cervical spondylosis C3 C6 resulting in grade 1 retrolisthesis, C4-5. Electronically signed by: Slim Gómez MD 01/18/2025 03:22 PM EDT Dictated By: Slim Torres MD Signed By: <Electronically signed by Slim Mendoza MDin OV> 01/18/25 1522 DD/ 1510 TD/TT: 01/18/25 1513 Rock Crusher Operator: Marcela Crook MD IMG XR PROCEDURES Edited Result - Final documented in this encounter Visit Diagnoses Diagnosis Neck pain- Primary Cervicalgia Dietary counseling Dietary surveillance and counseling Exercise counseling Class 1 obesity due to excess calories with serious comorbidity and body mass index (BMI) of 31.0 to 31.9 in adult Acute pain of right knee Chronic pain of right knee documented in this encounter Additional Health Concerns Assessment Noted Time PHQ-9 Depression Total Score: 7 10/08/19 25 7:52 AM EDT documented as of this encounter Care Teams Deburring Technician Relationship Specialty Start Date End Date Tom Trujillo ANP [address] [place] [address] PCP - General Family Medicine 09/29/19 Everett Rojas MD [address] [place] [address] 3rd [place] [address] Cardiology 04/21/24 documented as of this encounter
--- OUTSIDE RECORDS SUMMARY | 2025-01-18 16:57 | XMS_ITS | Encounter Summary ---
Author Organization [employer] Address [address] [place] [address] 7t [place] [address] Care Team Providers Care Car Washer Name Role Phone Sudha Mitchell Primary Care Provider [phone] Everett Rojas MD Unavailable [phone] Reason for Visit * Reason Comments Med Refill Encounter Details Date Type Department Care Team (Late st Contact Info) Description 06/22/2022 Refill [facility] MEDICINE 230 [place] [address] Sudha Mitchell ANP 230 [place] [address] Lumbago of lumbar region with sciatica Social [...] Description 02/09/2025 11:00 AM EDT Clinical Support [facility] CHC MED & PEDS 505 [place] [address] Nichole Lucio, MONAE 505 [place] [address] documented as of this encounter Visit Diagnoses Diagnosis Lumbago of lumbar region with sciatica documented in this encounter Care Teams Car Washer Relationship Specialty Start Date End Date Sudha Mitchell ANP [address] [place] [address] PCP - General Family Medicine 09/29/19 Everett Rojas MD [address] [place] [address] 3rd [place] [address] Cardiology 04/21/24 documented as of this encounter
--- OUTSIDE RECORDS SUMMARY | 2025-01-18 16:57 | XMS_ITS | Encounter Summary ---
Author Organization [employer] Address [address] [facility] [address] 7t [place] [address] Care Team Providers Care Buckle Attacher Name Role Phone Sudha Mitchell Primary Care Provider [phone] Everett Rojas MD Unavailable [phone] Reason for Visit * Reason Comments Med Refill Encounter Details Date Type Department Care Team ([facility] st Contact Info) Description 09/18/2023 Refill C [facility] MED [facility] PEDS [address] [place] [address] Sudha Mitchell ANP [address] [place] [address] Lumbago of lumbar region with sciatica Social [...] Description 02/09/2025 11:00 AM EDT Clinical Support [facility] CHC MED & PEDS 505 [place] [address] Nichole Lucio, RN 505 [place] [address] documented as of this encounter Visit Diagnoses Diagnosis Lumbago of lumbar region with sciatica documented in this encounter Care Teams Buckle Attacher Relationship Specialty Start Date End Date Sudha Mitchell ANP [address] [place] [address] PCP - General Family Medicine 09/29/19 Everett Rojas MD [address] [place] [address] 3rd [place] [address] Cardiology 04/21/24 documented as of this encounter
--- OUTSIDE RECORDS SUMMARY | 2025-01-18 16:57 | XMS_ITS | Encounter Summary ---
Author Organization [employer] Address [address] [place] [address] 7t [place] [address] Care Team Providers Care Health Care Coach Name Role Phone Stephen Sudha WEI Primary Care Provider [phone] Everett Rojas MD Unavailable [phone] Reason for Visit * Reason Comments Med Refill Encounter Details Date Type Department Care Team ([facility] st Contact Info) Description 12/30/2023 Refill [facility] MEDICINE 230 [place] [address] Fabi Boudreaux MD 230 [place] [address] Lumbago of lumbar region with sciatica Social [...] Description 02/09/2025 11:00 AM EDT Clinical Support [facility] CHC MED & PEDS 505 [place] [address] Nichole Lucio, RN 505 [place] [address] documented as of this encounter Visit Diagnoses Diagnosis Lumbago of lumbar region with sciatica documented in this encounter Care Teams Health Care Coach Relationship Specialty Start Date End Date Sudha Mitchell ANP [address] [place] [address] PCP - General Family Medicine 09/29/19 Everett Rojas MD [address] [place] [address] 3rd [place] [address] Cardiology 04/21/24 documented as of this encounter
--- OUTSIDE RECORDS SUMMARY | 2025-01-18 16:57 | XMS_ITS | Encounter Summary ---
Author Organization [employer] Address [address] [place] [address] 7t [place] [address] Care Team Providers Care Drive Thru Order Taker Name Role Phone Sudha Mitchell Primary Care Provider [phone] Everett Rojas MD Unavailable [phone] Reason for Visit * Reason Comments Med Refill Encounter Details Date Type Department Care Team (Late Contact Info) Description 05/02/2022 Refill [facility] MED & PEDS [address] [place] [address] Sudha Mitchell ANP 230 [place] [address] Cervicalgia Social History Tobacco Use Types Packs/Day [...] Upcoming Encounters Date Type Department Care Team ([facility] Contact Info) Description 02/09/2025 11:00 AM EDT Clinical Support [facility] MED & PEDS [address] [place] [address] Nichole Lucio, MONAE 505 [place], [place] documented as of this encounter Visit Diagnoses Diagnosis Cervicalgia documented in this encounter Care Teams Drive Thru Order Taker Relationship Specialty Start Date End Date Sudha Mitchell ANP 230 [place] [address] PCP - General Family Medicine 09/29/19 Everett Rojas MD [address] [place] [address] Drive 3rd Floor [place] [address] Cardiology 04/21/24 documented as of this encounter
--- OUTSIDE RECORDS SUMMARY | 2025-01-18 16:57 | XMS_ITS | Encounter Summary ---
Author Organization [employer] Address [address] [facility] [address] 7t [place] [address] Care Team Providers Care Feed Mill Lab Technician Name Role Phone Sudha Mitchell Primary Care Provider [phone] Everett Rojas MD Unavailable [phone] Reason for Visit * Reason Comments Med Refill Encounter Details Date Type Department Care Team ([facility] st Contact Info) Description 02/20/2024 Refill C [facility] MED [facility]S [address] [place] [address] Sudha Mitchell ANP [address] [place] [address] Lumbago of lumbar region with sciatica Social [...] Description 02/09/2025 11:00 AM EDT Clinical Support [facility] MED & PEDS 505 [place] [address] Nichole Lucio, MONAE 505 [place] [address] documented as of this encounter Visit Diagnoses Diagnosis Lumbago of lumbar region with sciatica documented in this encounter Care Teams Feed Mill Lab Technician Relationship Specialty Start Date End Date Sudha Mitchell ANP [address] [place] [address] PCP - General Family Medicine 09/29/19 Everett Rojas MD [address] 3rd [place] [address] Cardiology 04/21/24 documented as of this encounter
--- OUTSIDE RECORDS SUMMARY | 2025-01-18 16:57 | XMS_ITS | Encounter Summary ---
Author Organization [employer] Address [address] [facility] 7t [place] [address] Care Team Providers Care Tank Tester Name Role Phone Sudha Mitchell Primary Care Provider [phone] Everett Rojas MD Unavailable [phone] Reason for Visit * Reason Comments Med Refill Encounter Details Date Type Department Care Team ([facility] st Contact Info) Description 10/18/[address] [facility] MEDICINE 230 [place] [address] Sudha Mitchell ANP 230 [place] [address] Lumbago of lumbar region with sciatica Social [...] Description 02/09/2025 11:00 AM EDT Clinical Support [facility] MED & PEDS 505 [place] [address] Nichole Lucio, RN 505 [place] [address] documented as of this encounter Visit Diagnoses Diagnosis Lumbago of lumbar region with sciatica documented in this encounter Care Teams Tank Tester Relationship Specialty Start Date End Date Sudha Mitchell ANP [address] [place] [address] PCP - General Family Medicine 09/29/19 Everett Rojas MD [address] [place] [address] 3rd [place] [address] Cardiology 04/21/24 documented as of this encounter
--- OUTSIDE RECORDS SUMMARY | 2025-01-18 16:57 | XMS_ITS | Encounter Summary ---
Author Organization [employer] Address [address] [place] [address] 7t [place] [address] Care Team Providers Care Slotter Operator Helper Name Role Phone Sudha Mitchell Primary Care Provider Everett Rojas MD Unavailable Reason for Visit * Reason Comments Med Refill Encounter Details Date Type Department Care Team (Late st Contact Info) Description 08/14/2022 Refill [facility] MEDICINE 230 [place] [address] [place] [facility] 230 [place] [address] Lumbago of lumbar region with sciatica Social [...] Description 02/09/2025 11:00 AM EDT Clinical Support [facility] CHC MED & PEDS 505 [place] [address] Nichole Lucio, MONAE 505 [place] [address] documented as of this encounter Visit Diagnoses Diagnosis Lumbago of lumbar region with sciatica documented in this encounter Care Teams Slotter Operator Helper Relationship Specialty Start Date End Date Sudha Mitchell ANP [address] [place] [address] PCP - General Family Medicine 09/29/19 Everett Rojas MD [address] [place] [address] 3rd [place] [address] Cardiology 04/21/24 documented as of this encounter
--- OUTSIDE RECORDS SUMMARY | 2025-01-18 16:57 | XMS_ITS | Encounter Summary ---
Author Organization [employer] Address [address] [facility] 7t [place] [address] Care Team Providers Care Woodworking Machine Setter Name Role Phone Sudha Mitchell Primary Care Provider [phone] Everett Rojas MD Unavailable [phone] Reason for Visit * Reason Onset Date Comments Med Refill 11/23/2022 Encounter Details Date Type Department Care Team (Late st Contact Info) Description 11/23/2022 Telephone [facility] MEDICINE 230 [place] [address] Sudha Mitchell ANP 230 [place] [address] Med Refill Social History Tobacco Use Types [...] Department Care Team (Late Contact Info) Description 02/09/2025 11:00 AM EDT Clinical Support [facility] CHC MED & PEDS 505 [place] [address] Nichole Lucio, RN 505 [place] [address] documented as of this encounter Visit Diagnoses Not on filedocumented in this encounter Care Teams Woodworking Machine Setter Relationship Specialty Start Date End Date Sudha Mitchell ANP [address] [place] [address] PCP - General Family Medicine 09/29/19 Everett Rojas MD [address] [place] [address] Drive 3rd [place] [address] Cardiology 04/21/24 documented as of this encounter
--- OUTSIDE RECORDS SUMMARY | 2025-01-18 16:57 | XMS_ITS | Encounter Summary ---
Author Organization [employer] Address [address] [facility] 7t [place] [address] Care Team Providers Care Golf Cart Assembler Name Role Phone Sudha Mitchell Primary Care Provider [phone] Everett Rojas MD Unavailable [phone] Reason for Visit * Reason Onset Date Comments Pre-op Visit 12/20/2023 Encounter Details Date Type Department Care Team ([facility] st Contact Info) Description 12/20/2023 Telephone [facility] MEDICINE 230 [place] [address] Sudha Mitchell ANP 230 [place] [address] Pre-op Visit Social History Tobacco Use Types [...] [facility] Surgeon's office number: [phone] Ext [phone] Surgeon's office fax number: [phone] Contact name: Mara Last office note from surgeon requested: Yes documented in this encounter Plan of Treatment Upcoming Encounters Date Type Department Care Team (Late st Contact Info) Description 02/09/2025 11:00 AM EDT Clinical Support [facility] CHC MED & PEDS 505 [place] [address] Nichole Lucio, MONAE 505 [place] [address] documented as of this encounter Visit Diagnoses Not on filedocumented in this encounter Care Teams Golf Cart Assembler Relationship Specialty Start Date End Date Sudha Mitchell ANP [address] [place] [address] PCP - General Family Medicine 09/29/19 Everett Rojas MD [address] [place] [address] Drive 3rd [place] [address] Cardiology 04/21/24 documented as of this encounter
--- OUTSIDE RECORDS SUMMARY | 2025-01-18 16:57 | XMS_ITS | Encounter Summary ---
Author Organization [employer] Address [address] [place] [address] 7t [place] [address] Care Team Providers Care Sulfonation Equipment Operator Name Role Phone Sudha Mitchell Primary Care Provider [phone] Everett Rojas MD Unavailable [phone] Reason for Visit * Reason Comments Med Refill Encounter Details Date Type Department Care Team (Late st Contact Info) Description 01/22/2023 Refill [facility] MEDICINE 230 [place] [address] Sudha Mitchell ANP 230 [place] [address] Lumbago of lumbar region with sciatica Social [...] Description 02/09/2025 11:00 AM EDT Clinical Support [facility] CHC MED & PEDS 505 [place] [address] Nichole Lucio, RN 505 [place] [address] documented as of this encounter Visit Diagnoses Diagnosis Lumbago of lumbar region with sciatica documented in this encounter Care Teams Sulfonation Equipment Operator Relationship Specialty Start Date End Date Sudha Mitchell ANP 230 [place] [address] PCP - General Family Medicine 09/29/19 Everett Rojas MD [address] [place] [address] 3rd [place] [address] Cardiology 04/21/24 documented as of this encounter
--- OUTSIDE RECORDS SUMMARY | 2025-01-18 16:58 | XMS_ITS | Encounter Summary ---
Author Organization [employer] Address [address] [facility] 7t [place] [address] Care Team Providers Care School Teacher Name Role Phone Sudha Mitchell Primary Care Provider [phone] Everett Rojas MD Unavailable [phone] Reason for Visit * Reason Onset Date Comments Nurse Triage 01/18/2025 Encounter Details Date Type Department Care Team ([facility] st Contact Info) Description 01/18/2025 Telephone [facility] MEDICINE 230 [place] [address] Sudha Mitchell ANP 230 [place] [address] Nurse Triage Social History Tobacco Use Types Packs/Day Years [...] encounter Miscellaneous Notes * Telephone Encounter - Mell Petty RN - 01/18/2025 12:15 PM EDT Called pt. She states that her entire right side of neck is hurting and also her shoulder on the right side is hurting. Pain extends down her arm and extends to her waist. Pt. Has not taken anything for pain because since she had cancer in her liver she does not like to take OTC medications. Pt. Denies any nausea, dizziness or vomiting. No fever. Pt. States she woke up like this this am. No injury noted. Protocol Used: Neck Pain or Stiffness (Adult) Protocol-Based Disposition: Go to Office at 145pm today with Dr. Crook. Video visit offer not recorded Positive Triage Questions: * Severe pain (e.g., excruciating, unable to do any normal activities) * High-risk adult (e.g., history of cancer, HIV, or IV Drug Use) * Patient wants to be seen * All higher-acuity triage questions were negative Care Advice Discussed: * Sleep * Activity * Stretching Exercises * Telephone Encounter - Kimmy Zhu - 01/18/2025 11:57 AM EDT Symptoms: Stiff Neck, Neck Pain - Not From Injury Outcome: Talk to a nurse or provider within 15 minutes Reason: Headache The caller accepted this outcome. Contact pt at [phone] documented in this encounter Plan of Treatment Upcoming Encounters Date Type Department Care Team (Late st Contact Info) Description 02/09/2025 11:00 AM EDT Clinical Support [facility] MED & PEDS 505 [place] [address] Nichole Lucio, MONAE 505 [place] [address] documented as of this encounter Visit Diagnoses Not on filedocumented in this encounter Additional Health Concerns Assessment Noted Time PHQ-9 Depression Total Score: 7 10/08/19 25 7:52 AM EDT documented as of this encounter Care Teams School Teacher Relationship Specialty Start Date End Date Sudha Mitchell ANP [address] [place] [address] PCP - General Family Medicine 09/29/19 Everett Rojas MD [address] [place] [address] 3rd [place] [address] Cardiology 04/21/24 documented as of this encounter
--- OUTSIDE RECORDS SUMMARY | 2025-01-18 16:58 | XMS_ITS | Encounter Summary ---
Author Organization [employer] Address [address] [facility] [address] [facility] [address] 7t [place] [address] Care Team Providers Care Recycling Center Operator Name Role Phone Sudha Mitchell Primary Care Provider [phone] Everett Rojas MD Unavailable [phone] Encounter Details Date Type Department Care Team ([facility] st Contact Info) Description 01/13/2025 Telephone [facility] CHC MED & PEDS [address] [place] [address] Nichole Lucio, MONAE 505 [place] [address] Social History Tobacco Use Types Packs/Day Years [...] encounter Miscellaneous Notes * Telephone Encounter - Nichole Lucio RN - 01/13/2025 2:46 PM EDT TC to pt again, GROUND TRANSPORTATION OPERATOR appt scheduled for 02/09/25 @ 11am at [facility]. documented in this encounter Plan of Treatment Upcoming Encounters Date Type Department Care Team (Late st Contact Info) Description 02/09/2025 11:00 AM EDT Clinical Support [facility] MED & PEDS [address] [place] [address] Nichole Lucio RN 505 [place] [address] documented as of this encounter Visit Diagnoses Not on filedocumented in this encounter Additional Health Concerns Assessment Noted Time PHQ-9 Depression Total Score: 7 10/08/19 25 7:52 AM EDT documented as of this encounter Care Teams Recycling Center Operator Relationship Specialty Start Date End Date Sudha Mitchell ANP [address] [place] [address] PCP - General Family Medicine 09/29/19 Everett Rojas MD [address] 3rd [place] [address] Cardiology 04/21/24 documented as of this encounter
--- OUTSIDE RECORDS SUMMARY | 2025-01-18 16:58 | XMS_ITS | Encounter Summary ---
Author Organization [employer] Address [address] [facility] 7t [place] [address] Care Team Providers Care Go Cart Mechanic Name Role Phone Sudha Mitchell Primary Care Provider [phone] Everett Rojas MD Unavailable Reason for Visit * Reason Onset Date Comments Med Refill 11/06/2024 Encounter Details Date Type Department Care Team ([facility] st Contact Info) Description 11/06/2024 Telephone [facility] [address] [place] [address] Sudha Mitchell ANP [address] [place] [address] Med Refill Social History Tobacco Use Types [...] 50 MG tablet To be sent to: [facility] - [place], [place] - [address] [place] [address] documented in this encounter Plan of Treatment Upcoming Encounters Date Type Department Care Team ([facility] st Contact Info) Description 02/09/2025 11:00 AM EDT Clinical Support [facility] [address] [place] [address] Nichole Lucio, MONAE [address] [place] [address] documented as of this encounter Visit Diagnoses Not on filedocumented in this encounter Additional Health Concerns Assessment Noted Time PHQ-9 Depression Total Score: 7 10/08/19 25 7:52 AM EDT documented as of this encounter Care Teams Go Cart Mechanic Relationship Specialty Start Date End Date Sudha Mitchell ANP [address] [facility] [place] [address] PCP - General Family Medicine 09/29/19 Everett Rojas MD [address] 3rd [place] [address] Cardiology 04/21/24 documented as of this encounter
--- OUTSIDE RECORDS SUMMARY | 2025-01-18 16:58 | XMS_ITS | Encounter Summary ---
Author Organization [facility] Address [address] [place] [address] Care Team Providers Care Bit Tripoler Name Role Phone Darius Tamayo MD Primary Care Provider [phone] Encounter Details Date Type Department Care Team (Late st Contact Info) Description 01/07/2025 Results Follow-Up [facility] [address] [place] [id number] Break Off Worker: Lauren Hernandez MD [address] [place] [address] [id number] Social History Tobacco Use Types Packs/Day Years [...] as of this encounter Miscellaneous Notes * Result Encounter Note - Lauren Hancock MD - 01/07/2025 7:42 AM EDT [place] Given mild CAD and elevated calcium score in a patient with advanced age could we please have her see James? Thanks! documented in this encounter Plan of Treatment Upcoming Encounters Date Type Department Care Team (Late st Contact Info) Description 02/12/2025 11:00 AM EDT Office Visit [facility] Building 4th floor Cardiology Medicine [address] [place] [address] Break Off Worker: James Reynoso MD [address] [place] [phone] 03/18/2025 2:00 PM EST Follow-Up [facility] [address] [place] [address] Lauren Hancock MD [address] [place] [address] documented as of this encounter Visit Diagnoses Not on filedocumented in this encounter Care Teams Bit Tripoler Relationship Specialty Start Date End Date Darius Tamayo MD [address] [place] [phone] PCP - General Gastroenterology 12/22/24 documented as of this encounter
--- OUTSIDE RECORDS SUMMARY | 2025-01-18 16:58 | XMS_ITS | Encounter Summary ---
Author Organization [employer] Address [address] [facility] [address] 7t [place] [address] Care Team Providers Care Rehab Manager Name Role Phone Sudha Mitchell Primary Care Provider [phone] Everett Rojas MD Unavailable [phone] Reason for Visit * Reason Comments Med Refill Encounter Details Date Type Department Care Team ([facility] st Contact Info) Description 03/23/2024 Refill [facility] [address] [place] [address] Sudha Mitchell ANP [address] [place] [address] Lumbago of lumbar region with sciatica Social [...] Description 02/09/2025 11:00 AM EDT Clinical Support [facility] [address] [place] [address] Nichole Lucio, MONAE [address] [place] [address] documented as of this encounter Visit Diagnoses Diagnosis Lumbago of lumbar region with sciatica documented in this encounter Care Teams Rehab Manager Relationship Specialty Start Date End Date Sudha Mitchell ANP [address] [place] [phone] PCP - General Family Medicine 09/29/19 Everett Rojas MD [address] [facility] 3rd [place] [address] Cardiology 04/21/24 documented as of this encounter
--- OUTSIDE RECORDS SUMMARY | 2025-01-18 16:58 | XMS_ITS | Encounter Summary ---
Author Organization [facility] Address [address] [place] [address] Care Team Providers Care Sap Business Analyst Name Role Phone Darius Tamayo MD Primary Care Provider [phone] Encounter Details Date Type Department Care Team (Late st Contact Info) Description 12/22/2024 Education [facility] Transplant Department [address] [place] [address] Sabrina Dahl RN Social History Tobacco Use [...] Description 02/12/2025 11:00 AM EDT Office Visit [facility] Building 4th floor Cardiology Medicine [address] [place] [address] Lip Cutter: James Reynoso MD [address] [place] [phone] 03/18/2025 2:00 PM EST Follow-Up [facility] Liver Transplant Services [address] [place] [address] Lauren Hancock MD [address] [place] [phone] documented as of this encounter Visit Diagnoses Not on filedocumented in this encounter Care Teams Sap Business Analyst Relationship Specialty Start Date End Date Darius Tamayo MD [address] [place] [address] PCP - General Gastroenterology 12/22/24 documented as of this encounter
--- OUTSIDE RECORDS SUMMARY | 2025-01-18 16:58 | XMS_ITS | Encounter Summary ---
Author Organization [employer] Address [address] [facility] 7t [place] [address] Care Team Providers Care Health Informatics Instructor Name Role Phone Stephen Sudha WEI Primary Care Provider [phone] Everett Rojas MD Unavailable [phone] Encounter Details Date Type Department Care Team (Latest Contact Info) Description 01/18/2025 Travel Social History Tobacco Use Types Packs/Day [...] Description 02/09/2025 11:00 AM EDT Clinical Support [facility] [address] [place] [address] Nichole Lucio, MONAE [address] [place] [address] documented as of this encounter Visit Diagnoses Not on filedocumented in this encounter Additional Health Concerns Assessment Noted Time PHQ-9 Depression Total Score: 7 10/08/19 25 7:52 AM EDT documented as of this encounter Care Teams Health Informatics Instructor Relationship Specialty Start Date End Date Sudha Mitchell ANP [address] [place] [address] PCP - General Family Medicine 09/29/19 Everett Rojas MD [address]rd [place] [address] Cardiology 04/21/24 documented as of this encounter
--- OUTSIDE RECORDS SUMMARY | 2025-01-18 16:58 | XMS_ITS | Clinical Summary ---
Author Organization [employer] Address [address] [place] [address] Care Team Providers Care Firmware Architect Name Role Phone Stephen Tom WEI Primary Care Provider [phone] Everett Rojas MD Unavailable [phone] Allergies Active Allergy Reactions Criticality Noted Date Comments Rivaroxaban High 03/28/2020 GIB Shellfish Allergy Anaphylaxis High 03/12/2023 Patient reported Medications * This document contains information received from the source organization and may not represent a complete record from that organization. hydroCHLOROthia zide (HYDRODiuril) 25 MG tablet Take 25 mg by mouth in the morning. 022 Active albuterol (2.5 MG/3ML) 0.083% nebulizer solution Active cholecalciferol (Vitamin D-3) 25 MCG tablet Take 25 mcg by mouth in the morning. 022 Active betamethasone, augmented, (Diprolene) 0.05 % ointmentIndicat ions:Skin [...] NEEDED FOR DRY SKIN 453 g 1 Active digoxin (Lanoxin) 125 MCG tablet Take 125 mcg by mouth Once per day. Active Eliquis 5 MG tablet Active Calcium Carb-Cholecalci ferol 600-10 MG-MCG tablet TAKE 1 TABLET BY MOUTH TWICE DAILY IN THE MORNING AND AT BEDTIME 180 tablet 3 025 Active montelukast (Singulair) 10 MG tablet TAKE 1 TABLET BY MOUTH AT BEDTIME 90 tablet 3 Active Mometasone Furoate (Asmanex HFA) 100 MCG/ACT aerosol INHALE 1 PUFF BY MOUTH TWICE DAILY RINSE MOUTH AFTER USING. 13 g 5 025 Active traMADol (Ultram) 50 MG tabletIndicatio ns:Lumbago of lumbar region with sciatica Take 1 tablet (50 mg) by mouth every 12 (twelve) hours if needed for severe pain. 56 tablet 025 Active zinc sulfate (Zincate) 220 (50 Zn) MG capsule Take by mouth Once per day. 025 2024 Active metoprolol tartrate (Lopressor) 50 MG tablet 50 mg. Active atorvastatin (Lipitor) 20 MG tablet Take 20 mg by mouth Once per day. 025 2025 Active traMADol (Ultram) 50 MG tabletIndicatio ns:Neck pain Take 1 tablet (50 mg) by mouth every 12 (twelve) hours if needed for severe pain. 10 tablet 025 Active cyclobenzaprine (Flexeril) 5 MG tabletIndicatio ns:Neck pain Take 1 tablet (5 mg) by mouth if needed in the morning and at bedtime for muscle spasms. 30 tablet 1 025 Active lidocaine (Lidoderm) 5 % patchIndication s:Neck pain Apply 1 patch topically Once per day. 30 patch 3 025 Active Diclofenac Sodium 1 % gelIndications: Neck pain Apply 2 G up to 4x/d as needed for joint pain 100 g 2 025 Active metoprolol succinate XL (Toprol-XL) 25 MG 24 hr tablet 022 2024 Discontinued(D ose adjustment) Diclofenac Sodium 1 % gelIndications: Chronic pain of right knee Apply 2 G up to 4x/d as needed for joint pain 100 g 2 023 2024 Discontinued(R eorder (will not trigger notification to Pharmacy)) lidocaine (Lidoderm) 5 % patchIndication s:Acute pain of right knee Apply 1 patch topically Once per day. 30 patch 3 024 2024 Discontinued(R eorder (will not trigger notification to Pharmacy)) Active Problems Problem Noted Date Diagnosed Date [...] in cirrhosis 04/16/2023 Overview (10/06/2024): EGDs via [facility] History of Helicobacter pylori infection 023 Overview (04/16/2023): tx'd 10/2021 via [facility] Cirrhosis of liver without ascites 04/16/2023 Overview (10/06/2024): compensated. thought to be d/t CARTWRIGHT vs. HCV. Follows w/ [facility] and had abd MRI to eval liver lesion 07/2022. 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 11/25/2015 Benign essential hypertension 11/25/2015 Chronic hepatitis C 11/25/2015 Moderate persistent asthma 11/25/2015 Resolved Problems Problem Noted Date Diagnosed Date Resolved Date Mild depression 10/07/2024 10/07/2024 Encounters Date Type Department Care Team Description 01/18/2025 1:45 PM EDT Office Visit [facility] MEDICINE [address] [place] [phone] Marcela Crook MD Neck pain (Primary Dx); Dietary counseling; Exercise counseling; Class 1 obesity due to excess calories with serious comorbidity and body mass index (BMI) of 31.0 to 31.9 in adult; Acute pain of right knee; Chronic pain of right knee 01/18/2025 Travel 01/18/[address] [address] Tom Trujillo ANP Nurse Triage 01/13/2025 Travel 01/13/2025 Telephone [facility] MED & PEDS [address] [place] [address] Nichole Lucio, MONAE 01/08/2025 Telephone [facility]ED[facility] [address] [place] [address] Nichole Lucio, MONAE 01/04/2025 Orders Only GENERIC EXTERNAL DATA DEPARTMENT Provider, Generic External Data 12/30/[address] [address] Nita Mendoza, finish molder Question 12/25/[address] [address] Connie Felipe, finish molder Question 12/25/2024 Orders Only [address] [address] Tom Trujillo ANP Atherosclerosis of washoe coronary artery of washoe heart with stable angina pectoris ([facility]) (Primary Dx) 12/08/2024 Orders Only GENERIC EXTERNAL DATA DEPARTMENT Provider, Generic External Data 11/18/2024 Orders Only [facility] External Provider, [facility] 11/11/[address] [address] Tom Trujillo ANP Chart Prep 11/06/2024 Refill [facility] [address] [place] [address] Nichole Lucio, RN Lumbago of lumbar region with sciatica 11/06/2024 Travel 11/06/[address] [address] Tom Trujillo ANP Med Refill 10/26/2024 Orders Only [address] [place] [address] Tom Trujillo ANP 10/23/2024 Travel 10/23/2024 Telephone [facility] MED & PEDS [address] [place] [address] Nichole Lucio, MONAE IN STORE MARKETING REPRESENTATIVE 10/22/2024 Orders Only GENERIC EXTERNAL DATA DEPARTMENT Provider, Generic External Data from Last 3 Months Immunizations Immunization Administration [...] 16 01/18/2025 1:39 PM EDT Oxygen Saturation 96% 07/06/2024 2:19 PM EST Inhaled Oxygen Concentration - - Weight 68.9 kg (152 lb) 01/18/2025 1:39 PM EDT Height 147.3 cm (4' 10 ) 10/06/2024 11:24 AM EDT Body Mass Index 31.77 10/06/2024 11:24 AM EDT Plan of Treatment Upcoming Encounters Date Type Department Care Team (Late st Contact Info) Description 02/09/2025 11:00 AM EDT Clinical Support [facility] MED & PEDS [address] [place] [address] Nichole Lucio, MONAE [address] [facility] [place] [address] Health Maintenance Due Date Last Done Comments CT Colonography 1955 FIT DNA/Cologuard 1955 FIT 1955 FOBT 1955 Sigmoidoscopy 1955 Hepatitis A Vaccines (1 of 2 - Risk 2-dose series) 1972 RSV Patients and Patients Aged 60 years or older (1 - Risk 60-74 years 1-dose series) 2013 Zoster Vaccines (3 of 3) 01/12/2021 11/17/2020, 04/13 Colonoscopy 10/10/2024 10/10/2021 Colorectal Cancer Screening 10/10/2024 COVID-19 Vaccine (3 - season) 2025 08/16/2020, 07/19/2020 Influenza Vaccine (#1) 2025 , 06/15/2019, 02/20/2018, Additional history exists Alcohol/Substance Use Screening 03/25/2025 03/25/2024 SDOH Screening 06/18/2025 06/18/2024 Depression Screening 10/07/2025 10/07/2024, 10/08/19 25 Mammogram 10/26/2025 10/26/2024, 04/12, 10/31/2021, Additional history exists Tobacco Screening 01/18/2026 01/18/2025 DTaP/Tdap/Td Vaccines (3 - Td or Tdap) 06/27/2028 06/27/2018, 05/08/2016 Lipid Panel 01/04/2030 01/04/2025, 09/16/2023 Pneumococcal Vaccine: 50+ Years Completed 11/28/2021, [...] Routine 01/18/2025 3:10 PM EDT Neck pain TSH W/REFLEX TO FT4 Routine 01/04/2025 1 :20 PM EDT LIPID PANEL, STANDARD Routine 01/04/2025 1:20 PM EDT HEPATIC FUNCTION PANEL Routine 1:20 PM EDT COMPREHENSIVE METABOLIC PANEL Routine 01/04/2025 1:20 PM EDT CBC WITH AUTO DIFFERENTIAL Routine 01/04/2025 1:20 PM EDT CTA CHEST PE PROTOCAL Routine 12/08/2024 2:57 [...] AUTO DIFFERENTIAL Routine 10/22/2024 8:17 AM EDT HM COLONOSCOPY Routine 10/10/2021 from Last 3 Months or Most Recently Relevant to Health Maintenance Results * XR CERVICAL SPINE 3V (01/18/2025 3:10 PM EDT) Anatomical Region Laterality Modality Abdomen Radiographic Dawn ging 01/18/2025 3:10 PM EDT Narrative 01/18/2025 3:25 [place] [address] XRay Report Signed Patient: Walt Rajan MR #: [id number] : 1955 Acct:[id number] Age/Sex: 69 / F ADM Date: 01/18/25 Loc: HO.HHCX Attending Dr: Marcela Crook MD Ordering Physician: Marcela Crook MD Date of Service: 01/18/25 Procedure(s): XR cervical spine 3V Accession Number(s): [id number] cc: TOM TRUJILLO DIRECT CARE STAFFER; Marcela Crook MD Reason for Exam: neck [...] Slim Gómez MD 01/18/2025 03:22 PM EDT RP Dictated By: Slim Torres MD Signed By: <Electronically signed by Slim Mendoza MD in OV> 01/18/25 1522 DD/ 1510 TD/TT: 01/18/25 1513 Dry House Tender: Procedure Note Donotuseinterpreter, Image - 01/18/[address] [address] XRay Report Signed Patient: Kenyon Rajan #: [id number] : 1955cct:[id number] Age/Sex: 69 / FADM Date: 01/18/25 Loc: HO.HHCX Attending Dr: Marcela Crook MD Ordering Physician: Marcela Crook MD Date of Service: 01/18/25 Procedure(s): XR cervical spine 3V Accession Number(s): [id number] cc: TOM TRUJILLO DIRECT CARE STAFFER; Marcela Crook MD Reason for Exam: neck [...] Slim Gómez MD 01/18/2025 03:22 PM EDT RP Dictated By: Slim Torres MD Signed By: <Electronically signed by Slim Mendoza MDin OV> 01/18/25 1522 DD/ 1510 TD/TT: 01/18/25 1513 Dry House Tender: us Marcela Crook MD IMG XR PROCEDURES Edited Result - Final * TSH with Reflex to Free T4 (01/04/2025 1:20 PM EDT) TSH reflex Free T4 1.86 0.32 - 4.0 uIU/mL [facility] 01/04/2025 1:20 PM EDT 01/04/2025 4:05 PM EDT us Generic External Data Provider LAB BLOOD ORDERAB LES Final Result [facility] [address] [place] [phone] * (ABNORMAL) CBC auto differential (01/04/2025 1:20 PM EDT) Only the most recent of3 resultswithin the time period is included. White Blood Count 4.9 4.8 - 10.8 X10*3/uL [facility] Red Blood Count 4.05(L) 4.20 - 5.50 X10*6/uL [facility] Hemoglobin 11.8(L) 12.0 - 16.0 g/dl [facility] Hematocrit 36.6(L) 37.0 - 47.0 % [facility] Mean Corpuscular Volume 90.4 80.0 - 98.0 fL [facility] Mean Corpuscular Hemoglobin 29.1 27.0 - 33.0 pg [facility] Mean Corpuscular HGB Conc 32.2 31.0 - 35.0 g/dl [facility] Red Cell Distribution Width 15.3 11.0 - 16.0 % [facility] Platelet Count 184 160 - 400 X10*3/uL [facility] Mean Platelet Volume 11.5 9.4 - 12.3 fL [facility] Neutrophils Percent Auto 67.0 45 - 73 % [facility] Imm Gran Pct Auto 0.2 0.0 - 0.4 % [facility] Lymphocytes Percent Auto 20.4 20 - 40 % [facility] Monocytes Percent Auto 10.0 2 - 11 % [facility] Eosinophils Percent Auto 2.0 0 - 4 % [facility] Basophils Percent Auto 0.4 0 - 2 % [facility] NRBC Pct Auto 0.0 0.0 - 0.2 /100WBC [facility] Neutrophils Absolute Auto 3.3 2.0 - 8.3 x10*3/uL [facility] Imm Gran Abs Auto 0.01 0.00 - 0.03 X10*3/uL [facility] Lymphocytes Absolute Auto 1.0(L) 1.2 - 4.9 X10*3/uL [facility] Monocytes Absolute Auto 0.5 0.1 - 1.2 X10*3/uL [facility] Eosinophils Absolute Auto 0.1 0.0 - 0.4 X10*3/uL [facility] Basophils Absolute Auto 0.0 0.0 - 0.2 X10*3/uL [facility] NRBC Abs Auto 0.000 0.0 - 0.012 X10*3/uL [facility] 01/04/2025 1:20 PM EDT 01/04/2025 4:05 PM EDT us Generic External Data Provider LAB BLOOD ORDERAB LES Final Result [facility] [address] [place] [phone] * Hepatic Function Panel (01/04/2025 1:20 PM EDT) Only the most recent of2 resultswithin the time period is included. Bilirubin, Direct 0.3 0.0 - 0.5 mg/dL [facility] 01/04/2025 1:20 PM EDT 01/04/2025 4:05 PM EDT us Generic External Data Provider LAB BLOOD ORDERAB LES Final Result [facility] [address] [place] [phone] * (ABNORMAL) Lipid Panel, Standard (01/04/2025 1:20 PM EDT) Triglycerides 104 <150 mg/dL [facility] Comment:Desirable Triglyceri de: less than 150 mg/dLBorderline High Triglyceride 150-199 mg/dLHigh Triglyceride: 200-499 mg/dLVery High Triglyceride: greater than or equal to 5OO mg/dL Cholesterol 122 <200 mg/dL [facility] Comment:Desirable Cholestero l: less than 200 mg/dLBorderline High Cholesterol: 200-239 mg/dLHigh Cholesterol: greater than 239 mg/dL LDL Cholesterol Calculated 70 <100 mg/dL [facility] Comment:Desirable LDL: less than 100 mg/dLNear Optimal/Above Optimal LDL: 110- 129 mg/dLBorderline High LDL: 130-159 mg/dLHigh LDL: 160-189 mg/dLVery High LDL: greater than or equal to 190 mg/dL HDL Cholesterol 32(L) >40 mg/dL [facility] Comment:Desirable HDL: great er than 40 mg/dL Note: This HDL assay may give artificially low results in patients with liver disease. 01/04/2025 1:20 PM EDT 01/04/2025 4:05 PM EDT us Generic External Data Provider LAB BLOOD ORDERAB LES Final Result Performing Organization Address City/[facility]/ZIP Co de Phone Number [facility] [address] [place] [phone] * (ABNORMAL) Comprehensive Metabolic Panel (01/04/2025 1:20 PM EDT) Only the most recent of2 resultswithin the time period is included. Sodium 141 135 - 145 mmol/L [facility] Potassium 3.4 3.3 - 5.1 mmol/L [facility] Chloride 101 96 - 108 mmol/L [facility] Carbon Dioxide 30(H) 22 - 29 mmol/L [facility] Anion Gap 13 12 - 20 [facility] Urea Nitrogen (BUN) 13 9 - 16 mg/dL [facility] Creatinine, Serum 0.82 0.5 - 1.4 mg/dL [facility] Estimated Glomerular Filt Rate >60 [facility] Comment:Chronic Kidney Disea se: Estimated GFR < 60 mL/min/1.39j8Ibuvwa Kidney Disease: Estimated GFR < 15 mL/min/1.73m2 Glucose 91 60 - 115 mg/dL [facility] Calcium 9.8 8.4 - 10.2 mg/dL [facility] Bilirubin, Total 0.8 0.0 - 1.0 mg/dL [facility] Aspartate Amino Transferase 38(H) 5 - 31 U/L [facility] Alanine Aminotransferase 28 0 - 31 U/L [facility] Total Protein 7.5 6.5 - 8.0 g/dL [facility] Albumin Level 3.7 3.5 - 5.0 g/dL [facility] Alkaline Phosphatase 64 39 - 117 U/L [facility] 01/04/2025 1:20 PM EDT 01/04/2025 4:05 PM EDT us Generic External Data Provider LAB BLOOD ORDERAB LES Final Result Performing Organization Address City/[facility]/ZIP Co de Phone Number [facility] [address] [place] [phone] * CTA Chest PE Protocal (12/08/2024 2:57 PM EDT) Anatomical Region Laterality Modality Body, Chest Computed Tomogra phy 12/08/2024 2:57 PM EDT Narrative 12/08/2024 3:41 PM EDT [address] [address] [address] Scan Report Signed Patient: Walt Rajan MR #: [id number] : 1955 Acct:[id number] Age/Sex: 69 / F ADM Date: 12/08/24 Loc: HO.ED Attending Dr: Ordering Physician: Evan Keys Date of Service: 12/08/24 Procedure(s): CT angio chest PE protocol Accession Number(s): [id number] cc: Evan Keys; TOM TRUJILLO NP Report Number: [id number]: Total DLP = 187.00 mGy-cm EXAMINATION: CT [...] 12/08/24 1539 DD/ 1457 TD/TT: 12/08/24 1531 Dry House Tender: Procedure Note Donotuseinterpreter, Image - 12/08/[address] [place] [address] [address] Scan Report Signed Patient: Sid RajanR #: [id number] : 1955cct:[id number] Age/Sex: 69 / FADM Date: 12/08/24 Loc: .ED Attending Dr: Ordering Physician: Evan Keys Date of Service: 12/08/24 Procedure(s): CT angio chest PE protocol Accession Number(s): [id number] cc: Evan Keys; TOM TRUJILLO NP Report Number: [id number]: Total DLP = 187.00 mGy-cm EXAMINATION: CT [...] 12/08/24 1539 DD/ 1457 TD/TT: 12/08/24 1531 Dry House Tender: [facility] External Provider IMG CT PROCEDURES Final Result * High Sensitivity Troponin I (12/08/2024 11:52 AM EDT) TROPONIN I HIGH SENSITIVITY 8.5 <3.5 - 17.0 ng/L [facility] Comment:The Edwards high sens itivity Troponin-I results should beused in conjunction with other diagnostic information suchas ECG, clinical observations and information, and patientsymptoms to aid in the diagnosis of PA. 12/08/2024 11:5 2 AM EDT 12/08/2024 11:55 AM EDT Generic External Data Provider LAB BLOOD ORDERAB LES Final Result Performing Organization Address [facility] Co de Phone Number [facility] [address] [place] [phone] * SARS-CoV-2 RNA, Influenza A/B, and RSV RNA, Ql NAAT (12/08/2024 11:52 AM EDT) Influenza A PCR NEGATIVE Negative [facility] Influenza B PCR NEGATIVE Negative [facility] Resp Syncy Virus RNA Qual PCR NEGATIVE Negative [facility] SARS COV2 PCR NEGATIVE Negative [facility] Comment:All test results mus t be [...] use by authorized laboratories.Testing performed on the [employer] GeneXpert utilizingreal-time RT-PCR.All SARS CoV2 and positive influenza A/B results arereported to [facility]. 12/08/2024 11:5 2 AM EDT 12/08/2024 11:55 AM EDT Generic External Data Provider LAB MICROBIOLOGY - GENERAL ORDERABLES Final Result Performing Organization Address [facility]/ZIP Co de Phone Number [facility] [address] [place] [phone] * (ABNORMAL) Prothrombin Time-INR (12/08/2024 11:52 AM EDT) Only the most recent of2 resultswithin the time period is included. Prothrombin Time 23.4(H) 10.9 - 12.4 SEC [facility] INTERNATIONAL NORM RATIO 2.0(H) 0.9 - 1.1 [facility] Comment:INTERNATIONAL NORMAL IZED RATIO (INR) REFERENCE [...] ORDERAB LES Final Result Performing Organization Address [facility] Co de Phone Number [facility] [address] [place] [phone] * B Type Natriuretic Peptide (BNP) (12/08/2024 11:52 AM EDT) Pathologist [facility] B Type Natriuretic Peptide 58 <100 pg/mL [facility] 12/08/2024 11:5 2 AM EDT 12/08/2024 11:55 AM EDT [employer] External Data Provider LAB BLOOD ORDERAB LES Final Result Performing Organization Address [facility] de Phone Number [facility] [address] [place] [phone] * (ABNORMAL) Basic Metabolic Panel (12/08/2024 11:52 AM EDT) Pathologist [facility] Sodium 140 135 - 145 mmol/L [facility] Potassium 3.7 3.3 - 5.1 mmol/L [facility] Chloride 107 96 - 108 mmol/L [facility] Carbon Dioxide 26 22 - 29 mmol/L [facility] Anion Gap 11(L) 12 - 20 [facility] Urea Nitrogen (BUN) 18(H) 9 - 16 mg/dL [facility] Creatinine, Serum 1.00 0.5 - 1.4 mg/dL [facility] Creatinine Clr Calc Pharmacy 42.5 [facility] Comment:Provided height and weight: 149.86 cm,65.771 kg.eGFR (calculated from the MDRD study equation) and eCrCl(calculated from the Cockcroft-Gault equation) are based ondifferent parameters and may not yield comparable results.If eCrCl result is absurd, please check patient'sheight/weight. Estimated Glomerular Filt Rate 55 [facility] Comment:Chronic Kidney Disea se: Estimated GFR < 60 mL/min/1.21n5Vcudbp Kidney Disease: Estimated GFR < 15 mL/min/1.73m2 Glucose 117(H) 60 - 115 mg/dL [facility] Calcium 9.3 8.4 - 10.2 mg/dL [facility] 12/08/2024 11:5 2 AM EDT 12/08/2024 11:55 AM EDT us Generic External Data Provider LAB BLOOD ORDERAB LES Final Result [facility] [address] [place] [phone] * XR Chest 2 Views (12/08/2024 11:10 AM EDT) Anatomical Region Laterality Modality Chest Radiographic Dawn ging 12/08/2024 11:1 0 AM EDT Narrative 12/08/2024 12:17 PM EDT [address] [address] XRay Report Signed Patient: Walt Rajan MR #: [id number] : 1955 Acct:[id number] Age/Sex: 69 / F ADM Date: 12/08/24 Loc: .ED Attending Dr: Ordering Physician: Destinee Welch CNP Date of Service: 12/08/24 Procedure(s): XR chest 2V Accession Number(s): [id number] cc: Destinee eWlch CNP; TRUJILLO,TOM DIRECT CARE STAFFER EXAMINATION: XR CHEST 2 VIEWS HISTORY: shortness [...] Atul Mejía MD 12/08/2024 12:14 PM EDT RP Dictated By: Atul Mejía MD Signed By: <Electronically signed by Atul Mejía MD in OV> 12/08/24 1214 DD/ 1110 TD/TT: 12/08/24 1208 Dry House Tender: Procedure Note Donotuseinterpreter, Image - 12/08/2024 [place] [address] XRay Report Signed Patient: Kenyon Rajan #: [id number] : 4Acct:[id number] Age/Sex: 69 / FADM Date: 12/08/24 Loc: .ED Attending Dr: Ordering Physician: Destinee Welch CNP Date of Service: 12/08/24 Procedure(s): XR chest 2V Accession Number(s): [id number] cc: Destinee Welch QUALITY ASSURANCE TESTER; TOM TRUJILLO DIRECT CARE STAFFER EXAMINATION: XR CHEST 2 VIEWS HISTORY: shortness [...] Atul Mejía MD 12/08/2024 12:14 PM EDT RP Dictated By: Atul Mejía MD Signed By: <Electronically signed by Atul Mejía MD in OV> 12/08/24 1214 DD/ 1110 TD/TT: 12/08/24 1208 Dry House Tender: us [facility] External Provider IMG XR PROCEDURES Final Result * CT Chest w/ Contrast (11/18/2024 11:00 AM EDT) Anatomical Region Laterality Modality Body, Chest Computed Tomogra phy 11/18/2024 11:0 0 AM EDT Narrative 11/18/2024 11:33 AM EDT [address] [address] [address] Scan Report Signed Patient: Walt Rajan MR #: [id number] : 1955 Acct:[id number] Age/Sex: 69 / F ADM Date: 11/18/24 Loc: HO.CT Attending Dr: Darius Tamayo MD Ordering Physician: Darius Tamayo MD Date of Service: 11/18/24 Procedure(s): CT chest w IV con Accession Number(s): [id number] cc: Darius Tamayo MD; TOM TRUJILLO NP Report Number: [id number]: Total DLP = 104.00 mGy-cm EXAMINATION: CT [...] 11/18/24 1130 DD/ 1100 TD/TT: 11/18/24 1117 Dry House Tender: Procedure Note Donotuseinterpreter, Image - 11/18/[address] [address] [address] Scan Report Signed Patient: Kenyon Raajn #: [id number] : 4Acct:[id number] Age/Sex: 69 / FADM Date: 11/18/24 Loc: HO.CT Attending Dr: Darius Tamayo MD Ordering Physician: Darius Tamayo MD Date of Service: 11/18/24 Procedure(s): CT chest w IV con Accession Number(s): [id number] cc: Darius Tamayo MD; TOM TRUJILLO NP Report Number: [id number]: Total DLP = 104.00 mGy-cm EXAMINATION: CT [...] 11/18/24 1130 DD/ 1100 TD/TT: 11/18/24 1117 Dry House Tender: [facility] External Provider IMG CT PROCEDURES Final Result * XR Lumbar Spine 2-3 Views (11/18/2024 10:30 AM EDT) Anatomical Region Laterality Modality Spine, L-spine Radiographic Dawn ging 11/18/2024 10:3 0 AM EDT Narrative 11/18/2024 10:59 AM EDT [place] [address] XRay Report Signed Patient: Walt Rajan MR #: [id number] : 1955 Acct:[id number] Age/Sex: 69 / F ADM Date: 11/18/24 Loc: HO.CT Attending Dr: Darius Tamayo MD Ordering Physician: TOM TRUJILLO NP Date of Service: 11/18/24 Procedure(s): XR lumbar spine 2-3V Accession Number(s): [id number] cc: TOM TRUJILLO DIRECT CARE STAFFER EXAMINATION: XR LUMBOSACRAL SPINE CLINICAL INFORMATION: Slip [...] 11/18/24 1056 DD/ 1030 TD/TT: 11/18/24 1034 Dry House Tender: Procedure Note Donotuseinterpreter, Image - 11/18/[address] [address] XRay Report Signed Patient: Kenyon Rajan #: [id number] : 1955cct:[id number] Age/Sex: 69 / FADM Date: 11/18/24 Loc: HO.CT Attending Dr: Darius Tamayo MD Ordering Physician: TOM TRUJILLO NP Date of Service: 11/18/24 Procedure(s): XR lumbar spine 2-3V Accession Number(s): [id number] cc: TOM TRUJILLO DIRECT CARE STAFFER EXAMINATION: XR LUMBOSACRAL SPINE CLINICAL INFORMATION: Slip [...] 11/18/24 1056 DD/ 1030 TD/TT: 11/18/24 1034 Dry House Tender: Tom Trujillo ANP IMG XR PROCEDURES Final Result * BI Mammogram Screening Tomosynthesis Bilateral (10/26/2024 1:20 PM EDT) Anatomical Region Laterality Modality Breast Bilateral Mammography 10/26/2024 1:20 PM EDT Narrative 11/01/2024 2:28 PM EDT [facility] [address] [place] [place] [address] Mammography Report Signed Patient: Walt Rajan MR #: [id number] : 1955 Acct:[id number] Age/Sex: 69 / F ADM Date: 10/26/24 Loc: MAMMO Attending Dr: Tom Trujillo NP Ordering Physician: TOM TRUJILLO NP Results: 1Negative Date of Service: 10/26/24 Follow Up: 1 Year From Orig ina Mammogram Procedure(s): MM tomosynthesis screening BI Accession Number(s): [id number] cc: TOM TRUJILLO NP EXAMINATION: MM SCREENING [...] DO 11/01/2024 02:25 PM EDT Dictated By: Tyminski,Glenna DO Signed By: <Electronically signed by Glenna Sierra DO in OV> 11/01/24 1425 DD/ 1320 TD/TT: 10/26/24 1338 Dry House Tender: Procedure Note Donotuseinterpreter, Image - [facility] [address] [place] [address] Mammography Report Signed Patient: Sid RajanR #: [id number] : 1955cct:[id number] Age/Sex: 69 / FADM Date: 10/26/24 Loc: HO.MAMMO Attending Dr: Tom Trujillo NP Ordering Physician: TOM TRUJILLO NPResults: 1Negative Date of Service: 10/26/24Follow Up: 1 Year From Orig ina Mammogram Procedure(s): MM tomosynthesis screening BI Accession Number(s): [id number] cc: TOM TRUJILLO NP EXAMINATION: MM SCREENING [...] 11/01/24 1425 DD/ 1320 TD/TT: 10/26/24 1338 Dry House Tender: Tom WEI IMG BI PROCEDURES Edited Result - Final * Hepatitis C Viral RNA, Quantitative, Real-Time PCR (10/22/2024 8:17 AM EDT) Hepatitis C Viral Load <15 NOT DETECTED NOT DETECTED IU/mL [facility] HCV Log PCR <1.18 NOT DETECTED NOT DETECTED Log IU/mL [facility] Comment:For additional infor mation, please refer tohttp://education.KeepGo/faq/DSJ21m6(This link is being provided for informational/educational purposes only.)THIS TEST WAS PERFORMED AT:[facility] [place] [id number] GRIFFIN MD 10/22/2024 8:17 AM EDT 10/22/2024 8:17 AM EDT Generic External Data Provider LAB BLOOD ORDERAB LES Final Result [facility] [address] [place] [address] [phone] * Hm Colonoscopy (10/10/2021) Colonoscopy Normal Normal Historical Provider HEALTH MAINTENANCE Final Result from Last 3 Months or Most Recently Relevant to Health Maintenance Insurance [facility] Care Teams Firmware Architect Relationship Specialty Start Date End Date Tom Trujillo ANP [address] [place] [address] PCP - General Family Medicine 09/29/19 Everett Rojas MD [address] [place] [address] [address] [place] [address] Cardiology 04/21/24
--- OUTSIDE RECORDS SUMMARY | 2025-01-18 16:58 | XMS_ITS | Encounter Summary ---
Author Organization [employer] Address [address] [place] [address] Care Team Providers Care Oven Laborer Name Role Phone Sudha Mitchell Primary Care Provider [phone] Everett Rojas MD Unavailable [phone] Encounter Details Date Type Department Care Team ([facility] st Contact Info) Description 01/08/2025 Telephone [facility] MED & PEDS [address] [place] [address] Nichole Lucio, MONAE [address] [place] [address] Social History Tobacco Use Types Packs/Day Years [...] * Telephone Encounter - ERIBERTO Woodard - 01/13/2025 11:12 AM EDT Thanks, pt with multiple specialist visits recently, please cont to outreach. * Telephone Encounter - Nichole Lucio RN - 01/08/2025 2:02 PM EDT Fyi. Pt NCNS to PSYCH NURSE appt again. TC to pt, no answer. Lvm for pt to c/b and r/s. documented in this encounter Plan of Treatment Upcoming Encounters Date Type Department Care Team (Late st Contact Info) Description 02/09/2025 11:00 AM EDT Clinical Support [facility] [address] [place] [address] Nichole Lucio, MONAE [address] [place] [address] documented as of this encounter Visit Diagnoses Not on filedocumented in this encounter Additional Health Concerns Assessment Noted Time PHQ-9 Depression Total Score: 7 10/08/19 25 7:52 AM EDT documented as of this encounter Care Teams Oven Laborer Relationship Specialty Start Date End Date Sudha Mitchell ANP [address] [place] [phone] PCP - General Family Medicine 09/29/19 Everett Rojas MD [address] [place] [address] [address] [place] [address] Cardiology 04/21/24 documented as of this encounter
--- OUTSIDE RECORDS SUMMARY | 2025-01-18 16:58 | XMS_ITS | Encounter Summary ---
Author Organization [facility] Address [address] [place] [address] Care Team Providers Care Angle Shearer Name Role Phone Darius Tamayo MD Primary Care Provider [phone] Reason for Visit * Reason Onset Date Comments Care Coordination 01/18/2025 Encounter Details Date Type Department Care Team (Late st Contact Info) Description 01/18/2025 Telephone [facility] Transplant Department [address] [place] [phone] Sabrina Dahl RN Care Coordination Social History Tobacco Use Types Packs/Day Years [...] Telephone Encounter - Sabrina Dahl RN - 01/18/2025 2:02 PM EDT Spoke with Walt in regards to her liver transplant evaluation and frailty score. Explained she did result as pre-frail, confirmed she received the Exercise Program packet, and instructed her tobegin exercises daily as well as a healthy diet. Reviewed with Walt she has an appointment with Dr. Hernandez on 02/12 in regards to an elevated Calcium Score, and as long as no further testing is needed, this will complete her liver transplant evaluation. Walt also let me know she is currently inpatient at [facility] due to inability to blemish remover her neck/head to the right, most likely a pulled muscle. No additional liver decompensations at this time. Dr. Hancock made aware. documented in this encounter Plan of Treatment Upcoming Encounters Date Type Department Care Team (Late st Contact Info) Description 02/12/2025 11:00 AM EDT Office Visit [facility] 4th floor Cardiology Medicine [address] [place] [address] Mold Tooling Technician: James Reynoso MD [address] [place] [phone] 03/18/2025 2:00 PM EST Follow-Up [facility] Liver Transplant Services [address] [place] [address] Lauren Hancock MD [address] [place] [phone] documented as of this encounter Visit Diagnoses Not on filedocumented in this encounter Care Teams Angle Shearer Relationship Specialty Start Date End Date Darius Tamayo MD [address] [place] [address] PCP - General Gastroenterology 12/22/24 documented as of this encounter
--- OUTSIDE RECORDS SUMMARY | 2025-01-18 16:58 | XMS_ITS | Clinical Summary ---
Author Organization [facility] Address [address] [place] [address] Care Team Providers Care Kiln Firer Name Role Phone Darius Tamayo MD Primary Care Provider [phone] Allergies Active Allergy Reactions Criticality Noted Date [...] Date Type Department Care Team Description 01/18/2025 Telephone [facility] Transplant Department [address] [place] [id number] Sabrina Dahl, MONAE Care Coordination 01/15/2025 3:15 PM EDT Office Visit [facility] Liver Transplant Services [address] [place] [address] [phone] Nikko Pagan MD 01/15/2025 2:30 PM EDT Office Visit [facility] Transplant [facility] [address] [place] [address] [phone] Shaila Posey MD Encounter for pre-transplant evaluation for chronic liver disease (Primary Dx); Metabolic dysfunction-associate d steatohepatitis (MASH); Hepatocellular carcinoma (HCC); Chronic hepatitis C without hepatic coma (HCC); Screening examination for infectious disease; Positive CMV IgG serology; EBV seropositivity; Immune to hepatitis B; Immune to hepatitis A 01/15/2025 1:45 PM EDT Nutrition [facility] [address] [place] [phone] Encounter for pre-transplant evaluation for liver transplant (Primary Dx) 01/15/2025 1:00 PM EDT Office Visit [facility]plant [facility] [address] [place] [address] [phone] Mihai Blank MD Encounter for pre-transplant evaluation for chronic liver disease (Primary Dx) 01/15/2025 12:15 PM EDT Social Work [facility] [address] [place] [phone] Sandra Mcgregor CLIENT DEVELOPMENT CONSULTANT 01/15/2025 11:45 AM EDT Office Visit [facility]plant [facility] [address] [place] [id number] Da Robb, MONAE Encounter for pre-transplant evaluation for liver transplant 01/15/2025 10:30 AM EDT - 01/15/2025 11:59 PM EDT Hospital Encounter [facility] ACC Building Cardiac Ultrasound [address] [place] [address] Encounter for pre-transplant evaluation for liver transplant Discharge Disposition: Home or Self Care () 01/15/2025 Orders Only [facility] Transplant Department [address] [place] [address] [phone] Sabrina Dahl RN Encounter for pre-transplant evaluation for liver transplant (Primary Dx) 01/07/2025 Orders Only [facility] Transplant Department [address] [place] [address] [phone] Nanette Bowen, MONAE Encounter for pre-transplant evaluation for liver transplant (Primary Dx); Pre-procedural cardiovascular examination; Mild CAD; Coronary artery calcification seen on CT scan 01/07/2025 Results Follow-Up [facility] Gastroenterology [facility] [address] [place] [id number] Clothing Examiner: Lauren Hernandez MD 01/06/2025 12:18 PM EDT - 01/06/2025 11:59 PM EDT Hospital Encounter [address] [address] Lauren Hancock MD Encounter for pre-transplant evaluation for liver transplant; Metabolic dysfunction-associate d steatohepatitis (MASH) Discharge Disposition: Home or Self Care () 12/25/2024 Results Follow-Up [facility]plant [facility] [address] [place] [address] [phone] Sabrina Dahl RN 12/22/2024 1:00 PM EDT Office Visit [facility]plant [facility] [address] [place] [address] [phone] Lauren Hancock MD Hepatocellular carcinoma (HCC) (Primary Dx); Metabolic dysfunction-associate d steatohepatitis (MASH); Chronic hepatitis C without hepatic coma (HCC); 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) 12/22/2024 12:00 PM EDT Evaluation [facility] [address] [place] [address] [phone] Sabrina Dahl, RN Encounter for pre-transplant evaluation for liver transplant (Primary Dx) 12/22/2024 Education [facility] Transplant Department [address] [place] [address] [phone] Sabrina Dahl RN 12/22/2024 Orders Only [facility] Transplant Department [address] [place] [phone] Sabrina Dahl, RN Encounter for pre-transplant evaluation for liver transplant (Primary Dx); Metabolic dysfunction-associate d steatohepatitis (MASH) 12/22/2024 Orders Only [facility] Transplant Department [address] [place] [address] [phone] Sabrina Dahl, RN Encounter for pre-transplant evaluation for liver transplant (Primary Dx) 12/02/2024 Telephone [facility] Transplant Department [address] [place] [address] [phone] Sabrina Dahl, RN 12/02/2024 Orders Only [facility] Transplant Department [address] [place] [address] [phone] Provider, MD Cem 12/01/2024 Orders Only [facility] Transplant Department [address] [place] [address] [phone] Provider, MD Cem from Last 3 Months [...] oz) 01/15/2025 12:19 P M EDT Height 148.5 cm (4' 10.47 ) 01/15/2025 10:41 AM EDT Body Mass Index 30.38 01/15/2025 10:41 AM EDT Plan of Treatment Upcoming Encounters Date Type Department Care Team (Late st Contact Info) Description 02/12/2025 11:00 AM EDT Office Visit [facility] ACC Building 4th floor Cardiology Medicine [address] [place] [address] Clothing Examiner: James Reynoso MD [address] [place] [address] 03/18/2025 2:00 PM EST Follow-Up [facility] Transplant Services [address] [place] [address] Lauren Hancock MD [address] [place] [address] Health Maintenance Due Date Last Done Comments [...] Proxy Review 05/13/2024 Social Drivers of Health Eilzabeth ual Screening 05/13/2024 Influenza Vaccine (#1) 2025 , 06/15/2019, 02/20/2018, Additional history exists CT Lung Cancer Screening (Baseline) 11/18/2025 11/18/2024 DTaP,Tdap,and Td Vaccines (3 - Td or Tdap) 06/27/2028 06/27/2018, 05/08/2016 Pneumococcal Vaccine: 50+ Years Completed 11/28/2021, 11/17/2020, 05/08/2016 Osteoporosis Screening Completed 06/09/2024, 2024 Alcohol/Substance Use Screening Completed Procedures * Due to [place] state law, this organization might not be sharing negative HIV tests. Procedure Name Priority Date/Time Associated Diagnosis Comments TRANSTHORACIC ECHO (TTE) COMPLETE Routine 01/15/2025 11:47 AM EDT Encounter for pre-transplant evaluation for liver transplant CT LIMITED FOLLOW UP WO CONTRAST Routine 01/06/2025 1:17 PM EDT Encounter for pre-transplant evaluation for liver transplant Metabolic dysfunction-associated steatohepatitis (MASH) CT CARDIAC CORONARY AND CALCIUM SCORING Routine 01/06/2025 1:17 PM EDT Encounter for pre-transplant evaluation for liver transplant Metabolic dysfunction-associated steatohepatitis (MASH) COMPREHENSIVE DRUG SCREEN, URINE Routine 12/22/2024 2:34 PM EDT Encounter for pre-transplant evaluation for liver transplant HEPATITIS C RNA, QUANTITATIVE, PCR Routine 12/22/2024 2:14 PM EDT Encounter for pre-transplant evaluation for liver transplant ETHANOL Routine 12/22/2024 2:14 PM EDT Encounter for pre-transplant evaluation for liver transplant RYTGJ-[id number]-ZAUUYEDOXDK (AAT) PHENOTYPE Routine 12/22/2024 2:14 PM EDT Encounter for pre-transplant evaluation for liver transplant HEPATOCELLULAR CARCINOMA PANEL -[id number] Routine 12/22/2024 2:14 PM EDT Encounter for pre-transplant evaluation for liver transplant STEPHON SCREEN, IFA, W/REFLEX TO TITER & PATTERN Routine 12/22/2024 2:14 PM EDT Encounter for pre-transplant evaluation for liver transplant BILIRUBIN, DIRECT Routine 12/22/2024 2:1 4 PM EDT Encounter for pre-transplant evaluation for liver transplant CYSTATIN C WITH GLOMERULAR FILTRATION RATE, ESTIMATED (EGFR)-[id number] Routine 12/22/2024 2:14 PM EDT Encounter for [...] Encounter for pre-transplant evaluation for liver transplant PHOSPHATIDYLETHANOL-AR [id number] Routine 12/22/2024 2:14 PM EDT Encounter for [...] for liver transplant QUANTIFERON-TB GOLD PLUS, 1 [id number] Routine 12/22/2024 2:14 PM EDT Encounter for pre-transplant evaluation for liver transplant HIV-1/2 ANTIGEN/ANTIBODIES 4TH GENERATION W/REFLEX Routine 12/22/2024 2:14 PM EDT Encounter for pre-transplant evaluation for liver transplant RPR (DIAGNOSIS) W/REFLEX TO TITER & TPPA [id number] Routine 12/22/2024 2:14 PM EDT Encounter for [...] for pre-transplant evaluation for liver transplant ZINC, [id number] Routine 12/22/2024 2:14 PM EDT Encounter for pre-transplant evaluation for liver transplant IMAGING - SCANNED Routine 11/19/2024 4:5 0 PM EDT LAB - SCANNED Routine 10/22/2024 4:48 PM EDT from Last 3 Months Results * Due to [place] state law, this organization might not be [...] Doppler. Myocardial deformation imaging was performed using [employer] [place]. During the study the apical, parasternal, subcostal and suprasternal view was captured. Overall the study quality was adequate. STRESS ECHO OVERALL FINDINGS Normal RV size and systolic function. us Lauren Hancock MD CV ECHO PROCEDURES Final Result * CT Cardiac Coronary and Calcium Scoring (01/06/2025 1:17 PM EDT) Anatomical Region Laterality Modality Heart Computed Tomogra phy 01/06/2025 1:26 PM EDT Impressions 01/07/2025 5:27 AM EDT 1. Total Calcium Score = 320 which is at the 93rd percentile for age and gender. 2. CAD RADS 2. Mild nonobstructive coronary artery disease. 3. 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 Absent/very short left main artery, a normal anatomical variant. Single ground-glass nodule smaller than 6mm. For this type of nodule, the Fleischner Society recommends no CT follow-up, independent of the patient's risk for lung cancer. For comments and reference, please see [https://doi.org/10.1148/radiol.9322382669]. For information about nodule measurements and reporting, please see [https://pubs.rsna.org/doi/10.1148/radiol.7944728160]. I, Mike Riley, have reviewed the examination and concur with the findings as reported or so edited. Trainee: Kojo Nevarez If this radiology report contains a blank impression section, it is an incomplete radiology report. Please contact the interpreting radiologist or applicable radiology division as soon as possible to obtain the completed interpretation. Workstation ID: [id number] Narrative 01/07/2025 5:[address] CARDIAC CORONARY AND CALCIUM SCORING, CT LIMITED FOLLOW UP WO CONTRAST Indication: CAD screening, intermediate CAD risk, not treadmill candidate Z01.818 - I10 - Encounter for other preprocedural examination Z01.818 - I10 - Encounter for other preprocedural examination Technique: Prior to and during the administration of intravenous contrast material, ECG-gated CT of the heart was performed from the cardiac base to the apex without complication using retrospective gating with dose modulation. A timing bolus was used. The patient received the following medications prior to the coronary CTA acquisition: nitroglycerine 0.8 mg nitroglycerine SL, metoprolol 0 mg IV. Multiplanar and 3D reformatted images were rendered and reviewed on an advanced processing workstation to further define anatomy and possible pathology. Calcium scoring was performed. For radiation dose control at least one of the following techniques was used in this procedure (1) Automated exposure control (2) Adjustment of the mA and/or kV according to patient size (3) Use of iterative reconstruction technique. Technical Quality: good Comparison: None FINDINGS: Calcium Score: LMA = 0 LAD = 197 LCX = 1 RCA = 122 TOTAL = [address] Coronary Calcium Score (Agatston Score): Utilizing data from the Multi-Ethnic Study of Atherosclerosis (https://www.barker-nhlbi.org/Calcium/input.aspx), based upon the patient's age, gender, and race/ethnicity: Percentage of people of the same gender, age and ethnicity/race with a calcium score greater than zero: 63 Percentage of people of the same gender, age and ethnicity/race with calcium scores less than the patient's: 93 Coronary CTA: The coronary arteries arise in normal position. Dominance: right dominance. Left main: Absent/very short left main coronary artery. No ramus branch. LAD: The left anterior descending artery is patent. It gives off 1 significant (>1.8 mm) diagonal branch, which is patent and shows an early bifurcation. Predominantly calcified plaques in the proximal and mid LAD resulting in mild stenoses. Myocardial bridge in the distal posterior branch of the first diagonal without significant stenosis. LCX: The left circumflex artery is patent. It gives off 0 significant (>1.8 mm) obtuse marginal branches. No significant plaque or stenosis. RCA: The right coronary artery is patent. Predominantly calcified plaques throughout the RCA resulting in mild stenoses. OTHER CARDIAC FINDINGS: Cardiac size Moderate cardiomegaly. Valves No valvular calcifications. Pericardium No abnormality. EXTRA-CARDIAC FINDINGS: Limited visualization of the thorax secondary to limited z-axis collimation. Included portion of the mediastinum and large vessels: Aorta Normal aortic diameter. Pulmonary arteries Unremarkable shape and diameter. Esophagus Nondilated. Other mediastinal findings No other abnormal mediastinal findings are present. Included lymph nodes: Mediastinal No enlarged lymph nodes. Hilar Normal sized lymph nodes, no enlarged lymph nodes. Others None. Included lung parenchyma: A 5 mm groundglass nodule in the left lower lobe (900:64). No consolidation. Included airways: Unremarkable. Included pleura: No pleural effusion, thickening, or pneumothorax. Upper abdomen: Cirrhotic morphology of the partially imaged liver. Included portion of the chest wall and bones: Unremarkable chest wall. Moderate multilevel disc degeneration, otherwise normal thoracic vertebral body heights. FFRct: FFRct coronary analysis will not be ordered. Resulting Agency Comment [id number] Procedure Note Mike Riley MD - 01/07/2025 CT CARDIAC CORONARY AND CALCIUM SCORING, CT LIMITED FOLLOW UP WOCONTRAST Indication: CAD screening, intermediate CAD risk, not treadmill [id number] - I10 - Encounter for other preprocedural examination Z01.818 -I10 - Encounter for other preprocedural examination Technique: Prior to and during the administration of intravenous contrastmaterial, ECG-gated CT of the heart was performed from the cardiac base tothe apex without complication using retrospective gating with dosemodulation. A timing bolus was used. The patient received the followingmedications prior to the coronary CTA acquisition: nitroglycerine 0.8 mgnitroglycerine SL, metoprolol 0 mg IV. Multiplanar and 3D reformatted images were rendered and reviewed on anadvanced processing workstation to further define anatomy and possiblepathology. Calcium scoring was performed. For radiation dose control at least one of the following techniques wasused in this procedure (1) Automated exposure control (2) Adjustment ofthe mA and/or kV according to patient size (3) Use of iterativereconstruction technique. Technical Quality: good Comparison: None FINDINGS: Calcium Score: LMA = 0 LAD = 197 LCX = 1 RCA = 122 TOTAL = [address] Coronary Calcium Score (Agatston Score): Utilizing data from the Multi-Ethnic Study of Atherosclerosis(https://www.barker-nhlbi.org/Calcium/input.aspx), based upon the patient'[place], gender, and race/ethnicity: Percentage of people of the same gender, age and ethnicity/race with acalcium score greater than zero: 63 Percentage of people of the same gender, age and ethnicity/race withcalcium scores less than the patient's: 93 Coronary CTA: The coronary arteries arise in normal position. Dominance: rightdominance. Left main: Absent/very short left main coronary artery. No ramusbranch. LAD: The left anterior descending artery is patent. It gives off 1significant (>1.8 mm) diagonal branch, which is patent and shows an earlybifurcation. Predominantly calcified plaques in the proximal and mid LADresulting in mild stenoses. Myocardial bridge in the distal posteriorbranch of the first diagonal without significant stenosis. LCX: The left circumflex artery is patent. It gives off 0 significant(>1.8 mm) obtuse marginal branches. No significant plaque or stenosis. RCA: The right coronary artery is patent. Predominantly calcified plaquesthroughout the RCA resulting in mild stenoses. OTHER CARDIAC FINDINGS: Cardiac size Moderate cardiomegaly. Valves No valvular calcifications. Pericardium No abnormality. EXTRA-CARDIAC FINDINGS: Limited visualization of the thorax secondary to limited z-axiscollimation. Included portion of the mediastinum and large vessels: Aorta Normal aortic diameter. Pulmonary arteries Unremarkable shape and diameter. Esophagus Nondilated. Other mediastinal findings No other abnormal mediastinal findings are present. Included lymph nodes: Mediastinal No enlarged lymph nodes. Hilar Normal sized lymph nodes, no enlarged lymph nodes. Others None. Included lung parenchyma: A 5 mm groundglass nodule in the left lower lobe (900:64). Noconsolidation. Included airways: Unremarkable. Included pleura: No pleural effusion, thickening, or pneumothorax. Upper abdomen: Cirrhotic morphology of the partially imaged liver. Included portion of the chest wall and bones: Unremarkable chest wall. Moderate multilevel disc degeneration, otherwisenormal thoracic vertebral body heights. FFRct: FFRct coronary analysis will not be ordered. IMPRESSION: 1. Total Calcium Score = 320 which is at the 93rd percentile for age andgender. 2. CAD RADS 2. Mild nonobstructive coronary artery disease. 3. 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 Absent/very short left main artery, a normal anatomical variant. Single ground-glass nodule smaller than 6mm. For this type of nodule, theFleischner Society recommends no CT follow-up, independent of thepatient's risk for lung cancer. For comments and reference, please see[https://doi.org/10.1148/radiol.6782700418]. For information about nodulemeasurements and reporting, please see[https://pubs.rsna.org/doi/10.1148/radiol.1284122668]. I, Mike Riley, have reviewed the examination and concur with thefindings as reported or so edited. Trainee: Kojo Nevarez If this radiology report contains a blank impression section, it is anincomplete radiology report. Please contact the interpreting radiologistor applicable radiology division as soon as possible to obtain thecompleted interpretation. Workstation ID: [id number] Lauren Hancock MD IMLesley CT PROCEDURES Final Result * CT Limited Follow Up WO Contrast (01/06/2025 1:17 PM EDT) Anatomical Region Laterality Modality Lower Extremities, Knee Computed Tomography 01/06/2025 1:26 PM EDT Impressions 01/07/2025 5:27 AM EDT 1. Total Calcium Score = 320 which is at the 93rd percentile for age and gender. 2. CAD RADS 2. Mild nonobstructive coronary artery disease. 3. 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 Absent/very short left main artery, a normal anatomical variant. Single ground-glass nodule smaller than 6mm. For this type of nodule, the Fleischner Society recommends no CT follow-up, independent of the patient's risk for lung cancer. For comments and reference, please see [https://doi.org/10.1148/radiol.2196386735]. For information about nodule measurements and reporting, please see [https://pubs.rsna.org/doi/10.1148/radiol.4564455418]. Mike Lauren, have reviewed the examination and concur with the findings as reported or so edited. Trainee: Kojo Nevarez If this radiology report contains a blank impression section, it is an incomplete radiology report. Please contact the interpreting radiologist or applicable radiology division as soon as possible to obtain the completed interpretation. Workstation ID: [id number] Narrative 01/07/2025 5:[address] CARDIAC CORONARY AND CALCIUM SCORING, CT LIMITED FOLLOW UP WO CONTRAST Indication: CAD screening, intermediate CAD risk, not treadmill candidate Z01.818 - I10 - Encounter for other preprocedural examination Z01.818 - I10 - Encounter for other preprocedural examination Technique: Prior to and during the administration of intravenous contrast material, ECG-gated CT of the heart was performed from the cardiac base to the apex without complication using retrospective gating with dose modulation. A timing bolus was used. The patient received the following medications prior to the coronary CTA acquisition: nitroglycerine 0.8 mg nitroglycerine SL, metoprolol 0 mg IV. Multiplanar and 3D reformatted images were rendered and reviewed on an advanced processing workstation to further define anatomy and possible pathology. Calcium scoring was performed. For radiation dose control at least one of the following techniques was used in this procedure (1) Automated exposure control (2) Adjustment of the mA and/or kV according to patient size (3) Use of iterative reconstruction technique. Technical Quality: good Comparison: None FINDINGS: Calcium Score: LMA = 0 LAD = 197 LCX = 1 RCA = 122 TOTAL = [address] Coronary Calcium Score (Agatston Score): Utilizing data from the Multi-Ethnic Study of Atherosclerosis (https://www.barker-nhlbi.org/Calcium/input.aspx), based upon the patient's age, gender, and race/ethnicity: Percentage of people of the same gender, age and ethnicity/race with a calcium score greater than zero: 63 Percentage of people of the same gender, age and ethnicity/race with calcium scores less than the patient's: 93 Coronary CTA: The coronary arteries arise in normal position. Dominance: right dominance. Left main: Absent/very short left main coronary artery. No ramus branch. LAD: The left anterior descending artery is patent. It gives off 1 significant (>1.8 mm) diagonal branch, which is patent and shows an early bifurcation. Predominantly calcified plaques in the proximal and mid LAD resulting in mild stenoses. Myocardial bridge in the distal posterior branch of the first diagonal without significant stenosis. LCX: The left circumflex artery is patent. It gives off 0 significant (>1.8 mm) obtuse marginal branches. No significant plaque or stenosis. RCA: The right coronary artery is patent. Predominantly calcified plaques throughout the RCA resulting in mild stenoses. OTHER CARDIAC FINDINGS: Cardiac size Moderate cardiomegaly. Valves No valvular calcifications. Pericardium No abnormality. EXTRA-CARDIAC FINDINGS: Limited visualization of the thorax secondary to limited z-axis collimation. Included portion of the mediastinum and large vessels: Aorta Normal aortic diameter. Pulmonary arteries Unremarkable shape and diameter. Esophagus Nondilated. Other mediastinal findings No other abnormal mediastinal findings are present. Included lymph nodes: Mediastinal No enlarged lymph nodes. Hilar Normal sized lymph nodes, no enlarged lymph nodes. Others None. Included lung parenchyma: A 5 mm groundglass nodule in the left lower lobe (900:64). No consolidation. Included airways: Unremarkable. Included pleura: No pleural effusion, thickening, or pneumothorax. Upper abdomen: Cirrhotic morphology of the partially imaged liver. Included portion of the chest wall and bones: Unremarkable chest wall. Moderate multilevel disc degeneration, otherwise normal thoracic vertebral body heights. FFRct: FFRct coronary analysis will not be ordered. Resulting Agency Comment [id number] Procedure Note Mike Riley MD - 01/07/2025 CT CARDIAC CORONARY AND CALCIUM SCORING, CT LIMITED FOLLOW UP WOCONTRAST Indication: CAD screening, intermediate CAD risk, not treadmill [id number] - I10 - Encounter for other preprocedural examination Z01.818 -I10 - Encounter for other preprocedural examination Technique: Prior to and during the administration of intravenous contrastmaterial, ECG-gated CT of the heart was performed from the cardiac base tothe apex without complication using retrospective gating with dosemodulation. A timing bolus was used. The patient received the followingmedications prior to the coronary CTA acquisition: nitroglycerine 0.8 mgnitroglycerine SL, metoprolol 0 mg IV. Multiplanar and 3D reformatted images were rendered and reviewed on anadvanced processing workstation to further define anatomy and possiblepathology. Calcium scoring was performed. For radiation dose control at least one of the following techniques wasused in this procedure (1) Automated exposure control (2) Adjustment ofthe mA and/or kV according to patient size (3) Use of iterativereconstruction technique. Technical Quality: good Comparison: None FINDINGS: Calcium Score: LMA = 0 LAD = 197 LCX = 1 RCA = 122 TOTAL = [address] Coronary Calcium Score (Agatston Score): Utilizing data from the Multi-Ethnic Study of Atherosclerosis(https://www.barker-nhlbi.org/Calcium/input.aspx), based upon the patient'indiana, gender, and race/ethnicity: Percentage of people of the same gender, age and ethnicity/race with acalcium score greater than zero: 63 Percentage of people of the same gender, age and ethnicity/race withcalcium scores less than the patient's: 93 Coronary CTA: The coronary arteries arise in normal position. Dominance: rightdominance. Left main: Absent/very short left main coronary artery. No ramusbranch. LAD: The left anterior descending artery is patent. It gives off 1significant (>1.8 mm) diagonal branch, which is patent and shows an earlybifurcation. Predominantly calcified plaques in the proximal and mid LADresulting in mild stenoses. Myocardial bridge in the distal posteriorbranch of the first diagonal without significant stenosis. LCX: The left circumflex artery is patent. It gives off 0 significant(>1.8 mm) obtuse marginal branches. No significant plaque or stenosis. RCA: The right coronary artery is patent. Predominantly calcified plaquesthroughout the RCA resulting in mild stenoses. OTHER CARDIAC FINDINGS: Cardiac size Moderate cardiomegaly. Valves No valvular calcifications. Pericardium No abnormality. EXTRA-CARDIAC FINDINGS: Limited visualization of the thorax secondary to limited z-axiscollimation. Included portion of the mediastinum and large vessels: Aorta Normal aortic diameter. Pulmonary arteries Unremarkable shape and diameter. Esophagus Nondilated. Other mediastinal findings No other abnormal mediastinal findings are present. Included lymph nodes: Mediastinal No enlarged lymph nodes. Hilar Normal sized lymph nodes, no enlarged lymph nodes. Others None. Included lung parenchyma: A 5 mm groundglass nodule in the left lower lobe (900:64). Noconsolidation. Included airways: Unremarkable. Included pleura: No pleural effusion, thickening, or pneumothorax. Upper abdomen: Cirrhotic morphology of the partially imaged liver. Included portion of the chest wall and bones: Unremarkable chest wall. Moderate multilevel disc degeneration, otherwisenormal thoracic vertebral body heights. FFRct: FFRct coronary analysis will not be ordered. IMPRESSION: 1. Total Calcium Score = 320 which is at the 93rd percentile for age andgender. 2. CAD RADS 2. Mild nonobstructive coronary artery disease. 3. 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 Absent/very short left main artery, a normal anatomical variant. Single ground-glass nodule smaller than 6mm. For this type of nodule, theFleischner Society recommends no CT follow-up, independent of thepatient's risk for lung cancer. For comments and reference, please see[https://doi.org/10.1148/radiol.5838036416]. For information about nodulemeasurements and reporting, please see[https://pubs.rsna.org/doi/10.1148/radiol.6917696963]. I, Mike Riley, have reviewed the examination and concur with thefindings as reported or so edited. Trainee: Kojo Nevarez If this radiology report contains a blank impression section, it is anincomplete radiology report. Please contact the interpreting radiologistor applicable radiology division as soon as possible to obtain thecompleted interpretation. Workstation ID: [id number] us Lauren Hancock MD IMG CT PROCEDURES Final Result * Comprehensive Drug Panel, Urine (12/22/2024 2:34 PM EDT) [facility] Comprehensive Drug Screen Urine DRUGS DETECTED 12/22/2024 9:16 PM EDT Who@ [facility] Comment: CAFFEINE METOPROLOL Urine Voided urine specimen / Unknown Non-Blood Collection / Unknown 12/22/2024 2:34 PM EDT 12/22/2024 2:42 PM EDT Narrative [facility] - 12/22/2024 9:16 PM EDT [facility] Received Date:[id number] us Lauren Hancock MD LAB URINE ORDERABLES Fin al Result [facility] MENEZES [address] [place] [address] 3rd Floor, [place] [address], [place] [phone] Who@ [address] Floor, [place] [address], [place] [phone] * (ABNORMAL) Cystatin C with Glomerular Filtration Rate, Estimated (eGFR) (12/22/2024 2:14 PM EDT) Cystatin C 1.58(H) 0.52 - 1.10 mg/L 12/24/2024 12:17 PM EDT [facility]) eGFR Non- 38(L) >=60 NA 12/24/2024 12:17 PM EDT [facility] ([facility]) Comment: REFERENCE RANGE:>=60 mL/min/1.73mE2 Blood Structure of peripheral vein / Unknown Venipuncture / Unknown 12/22/2024 2:14 PM EDT 12/22/2024 2:53 PM EDT Narrative [facility] CARDONA) - 12/24/2024 12:17 PM EDT [facility] Received Date: Lauren Hancock MD LAB BLOOD ORDERABLES Fin al Result [facility] CARDONA) [address] [place], [place] , [place] * (ABNORMAL) Hepatocellular Carcinoma Panel (Includes AFP, AFP-L3 & DCP) (12/22/2024 2:14 PM EDT) AFP 31.3(H) 1.6 - 4.5 ng/mL 12/29/2024 6:23 PM EDT [facility] [employer] [facility] AFP-L3 3.9 0.5 - 9.9 % 12/29/2024 6:23 PM EDT [facility] [employer] [facility] [place] Comment: The micro-total analysis system ([facility]) employs microchip capillary electrophoresis to quantitatively measure AFP and AFP-L3% by immunochemical techniques. The assay principle involves DNA-coupled antibodies and dye labeled antibodies, which react with proteins in liquid phase within the microchannels. Both analytes are quantified using laser-induced fluorescence. Instrument and associated reagents are supplied by [employer] [place], [place], [place]. Patients with elevated AFP-L3% values (>=10%) [...] can potentially cause an anomalous result. The [employer] uTAS System has been formulated to minimize the [...] or kits cannot be used interchangeably. DCP (Lka-Gckzw-Akuiztf- Prothrombin) 0.2 <7.5 ng/mL 12/29/2024 6:23 PM EDT [facility]/N [facility] Comment: The [facility] DCP Immunological Test System is a clinical device used to quantitatively measure, by immunochemical technique, qlp-fthvk-ejmdyst-prothrombin (DCP) in serum. The assay uses DNA-coupled antibodies and dye labeled antibodies, which react with proteins in liquid phase within the microchannels. Both analytes are quantified using laser-induced fluorescence. Instrument and associated reagents are supplied by [employer] [place], [place], [place]. DCP levels increase in patients with [...] interference potentially causing an anomalous result. The [facility] DCP has been formulated to minimize the [...] PM EDT 12/22/2024 2:52 PM EDT [facility] - 12/29/2024 6:23 PM EDT [facility] Received Date: Lauren Hancock MD LAB BLOOD ORDERABLES Fin al Result [facility] MENEZES [address]rd [address], [place] [address], [place] [phone] [facility] [address] [place] [address], [place] [phone] * Phosphatidylethanol (PEth) (12/22/2024 2:14 PM EDT) [...] LABORATORY Comment: Authorized individuals can access the [facility] Enhanced Report with an [employer] Connect account using the following link. Your local lab can assist you in obtaining the patient report if you don't have a Connect account. [email or web address] PEth Interpretation See Comment 12/11 2:50 PM [...] developed and its performance characteristics determined by [facility]. It has not been cleared or approved by the U.S. Food and Drug Administration. This test was performed in a CLIA-certified laboratory and is intended for clinical purposes. Performed By: [facility] [address] [place] [address] Traffic Operator: Dennis Landry MD, PhD CLIA Number: [id number] Blood Structure of peripheral vein / Unknown Venipuncture / Unknown 12/22/2024 2:14 PM EDT 12/22/2024 2:51 PM EDT Luaren Hancock MD LAB BLOOD [place] [address], * Dkiiv-6-Qvkddvguirr (AAT) Phenotype (12/22/2024 2:14 PM EDT) Alpha 1 Antitrypsin Phenotype SEE NOTE 12/28/2024 6:17 PM EDT Who@/[facility] Comment: THIS PATIENT'S QZNME-6-YFFSNPUGXHX PHENOTYPE IS PI*MM. 90% of normal individuals have the MM phenotype, with normal quantitative AAT levels. Many phenotypic patterns have been described, including deficiency states with F, S, Z, or other alleles. As a general estimation, compared to M allele of 100% of normal V-7-Snmoxsgoflz protein, the S allele produces approximately 60% and the Z allele 20%. For example, an MS phenotype would have about 80% of normal B-5-Qfxcxsyigfg protein level, a 50% contribution from the M allele and 30% from the S allele. A ZZ phenotype would have about 20% of normal levels, a 10% contribution from each Z gene. The F allele has normal Q-1-Wixnnwtlwzp levels, but the kinetics of elastase inhibition [...] PM EDT 12/22/2024 2:51 PM EDT Narrative [facility] - 12/28/2024 6:17 PM EDT [facility] Received Date: Lauren Hancock MD LAB BLOOD ORDERABLES Fin al Result BALTA MENEZES [address], [place] [address], [place] [phone] Who@/[facility] [address] [place] [address], [place] [phone] * MMR Panel, IgG (12/22/2024 2:14 PM EDT) [facility] Measles Antibody (IgG), Immune Status >300.00 AU/mL 12/23/2024 5:57 AM EDT Who@ [facility] Comment: AU/mL Interpretation ----- <13.50 Not consistent with immunity 13.50-16.49 Equivocal >16.49 Consistent with immunity The presence of measles IgG suggests immunization or past or current infection with measles virus. For additional information, please refer to http://education.RewardSnap/faq/ZUX573 (This link is being provided for informational/ educational purposes only.) Mumps Antibody (IgG), Immune Status >300.00 AU/mL 12/23/2024 5:57 AM EDT [facility] Comment: AU/mL Interpretation ------- <9.00 Not consistent with immunity 9.00-10.99 Equivocal >10.99 Consistent with immunity The presence of mumps IgG antibody suggests immunization or past or current infection with mumps virus. Rubella Antibody (IgG), Immune Status 5.07 Index 12/23/2024 5:57 AM EDT [facility] Comment: Index Interpretation ----- <0.90 Not consistent with immunity 0.90-0.99 Equivocal > or = 1.00 Consistent with immunity The presence of rubella IgG antibody suggests immunization or past or current infection with rubella virus. Blood Structure of peripheral vein / Unknown Venipuncture / Unknown 12/22/2024 2:14 PM EDT 12/22/2024 2:[address] [facility] - 12/23/2024 5:57 AM EDT [facility] Received Date:[id number] Lauren Hancock MD LAB BLOOD ORDERABLES [facility] al Result [facility] [address], [place] [address], [employer] [facility] [address] [facility] [address]rd Floor, [place] [address], * (ABNORMAL) Herpes Simplex Virus 1&2, IgG (12/22/2024 2:14 PM EDT) HSV 1 IgG Type Specific Ab 46.90(H) index 12/23/2024 3:42 AM EDT [facility] HSV 2 IgG Type Specific Ab <0.90 index 12/23/2024 3:42 AM EDT [facility] [facility] Comment: Index Interpretation ----- <0.90 Negative 0.90-1.09 [...] screening. For additional information, please refer to http://education.RewardSnap/faq/OMX061 (This link is being provided for informational/ educational purposes only.) Blood Structure of peripheral vein / Unknown Venipuncture / Unknown 12/22/2024 2:14 PM EDT 12/22/2024 2:50 PM EDT [facility] 12/23/2024 3:42 AM EDT [facility] Received Date: Lauren Hancock MD LAB BLOOD ORDERABLES [facility] al Result [facility] [address], [place] [address], Who@ [address], [place] [address], * (ABNORMAL) Protein Electrophoresis w/Reflex to Immunofixation, Serum (12/22/2024 2:14 PM EDT) Pathologist [facility] Protein, Total 7.6 6.1 - 8.1 g/dL 12/23/2024 10:54 PM EDT Who@ [facility] Albumin 3.8 3.8 - 4.8 g/dL 12/23/2024 10:54 PM EDT Who@ [facility] Alpha 1 Globulin 0.4(H) 0.2 - 0.3 g/dL 12/23/2024 10:54 PM EDT Who@ [facility] Alpha 2 Globulin 0.9 0.5 - 0.9 g/dL 12/23/2024 10:54 PM EDT Who@ [facility] Beta 1 Globulin 0.5 0.4 - 0.6 g/dL 12/23/2024 10:54 PM EDT Who@ [facility] Beta 2 Globulin 0.5 0.2 - 0.5 g/dL 12/23/2024 10:54 PM EDT Who@ [facility] Gamma Globulin 1.5 0.8 - 1.7 g/dL 12/23/2024 10:54 PM EDT Who@ [facility] Interpretation See Comments 12/23/2024 10:54 PM EDT Who@ [facility] Comment: Alpha-1 globulin increase noted. Blood Structure of peripheral vein / Unknown Venipuncture / Unknown 12/22/2024 2:14 PM EDT 12/22/2024 2:50 PM EDT Narrative [facility] - 12/23/2024 10:54 PM EDT [facility] Received Date: us Lauren Hancock MD LAB BLOOD ORDERABLES Fin al Result [address] [place] [address], Who@ [facility] [address], [place] [address], [place] [phone] * RPR (Diagnosis) w/Reflex to Titer & TPPA Confirm (12/22/2024 2:14 PM EDT) RPR W/Refl Titer NON-REACT DEREJE NON-REACT DEREJE 12/23/2024 11:34 AM EDT Who@ [facility] Blood Structure of peripheral vein / Unknown Venipuncture / Unknown 12/22/2024 2:14 PM EDT 12/22/2024 2:51 PM EDT Narrative [facility] MENEZES - 12/23/2024 11:34 AM EDT [facility] Received Date:[id number] us Lauren Hancock MD LAB BLOOD ORDERABLES Fin al Result Performing Organization Address City/[facility]/ZIP Co de Phone Number [facility] [place] [address], [place] [address], [place] [phone] Who@ [facility] [address] [place] [address], [place] [address], [place] [phone] * (ABNORMAL) Iron Saturation (12/22/2024 2:14 PM EDT) Iron Saturation 19(L) 20 - 50 % 3:36 PM EDT [facility] Iron 59 30 - 160 ug/dL 12/22/2024 3:36 PM EDT [facility] Transferrin 252 200 - 360 mg/dL 12/22/2024 3:36 PM EDT [facility] Total Iron Binding Capacity 315 255 - 450 ug/dL 12/22/2024 3:36 PM EDT [facility] Blood Structure of peripheral vein / Unknown Venipuncture / Unknown 12/22/2024 2:14 PM EDT 12/22/2024 2:51 PM EDT Lauren Hancock MD LAB BLOOD ORDERABLES Fin al Result Performing Organization Address City/[facility]/ZIP Co de Phone Number [facility] [address] [place] [address], * TSH Reflex Free T4 (12/22/2024 2:14 PM EDT) TSH 3.360 0.280 - 3.890 uIU/mL 12/22/2024 3:36 PM EDT [facility] Comment: Females: 1st trimester 0.150-4.000 IU/mL 2nd trimester 0.310-4.170 IU/mL 3rd trimester 0.380-4.150 IU/mL Blood Structure of peripheral vein / Unknown Venipuncture / Unknown 12/22/2024 2:14 PM EDT 12/22/2024 2:51 PM EDT Lauren Hancock MD LAB BLOOD ORDERABLES Fin al Result [facility] [address] [place] [address], [place] * QuantiFERON-TB Gold Plus, 1 Tube (12/22/2024 2:14 PM EDT) Pathologist [facility] QuantiFERON-TB Gold Plus NEGATIVE NEGATIVE 12/24/2024 3:33 PM EDT Who@ [facility] Comment: Negative test result. M. tuberculosis complex infection unlikely. NIL 0.02 IU/mL 12/24/2024 3:33 PM EDT Who@ [facility] Mitogen-NIL 6.90 IU/mL 12/24/2024 3:33 PM EDT Who@ [facility] TB1-NIL 0.00 IU/mL 12/24/2024 3:33 PM EDT Who@ [facility] TB2-NIL 0.00 IU/mL 12/24/2024 3:33 PM EDT Who@ [facility] Comment: The Nil tube value reflects [...] T-lymphocytes. For additional information, please refer to https://education.XMS Penvision.[employer]/faq/GGR443 (This link is being provided for informational/ educational purposes only.) Blood Structure of peripheral vein / Unknown Venipuncture / Unknown 12/22/2024 2:14 PM EDT 12/22/2024 2:42 PM EDT Narrative [facility] - 12/24/2024 3:33 PM EDT [facility] Received Date: Lauren Hancock MD LAB BLOOD ORDERABLES Fin al Result [facility] [address], [place] [address], [place] [phone] Who@ [facility] [address] [facility] [address]rd [address], [place] [address], [place] [phone] * (ABNORMAL) CBC Auto Differential (12/22/2024 2:14 PM EDT) WBC 4.9 3.8 - 10.8 10*3/uL 12/22/2024 3:21 PM EDT [facility] RBC 4.19 3.80 - 5.10 10*6/uL 12/22/2024 3:21 PM EDT [facility] Hemoglobin 12.1 11.7 - 15.5 g/dL 12/22/2024 3:21 PM EDT [facility] Hematocrit 37.6 35.0 - 45.0 % 12/22/2024 3:21 PM EDT [facility] MCV 89.7 80.0 - 100.0 fL 12/22/2024 3:21 PM EDT [facility] MCH 28.9 27.0 - 33.0 pg 12/22/2024 3:21 PM EDT [facility] MCHC 32.2 32.0 - 36.0 g/dL 12/22/2024 3:21 PM EDT [facility] RDW 14.8 11.0 - 15.0 % 12/22/2024 3:21 PM EDT [facility] Platelets 113(L) 140 - 400 10*3/uL 12/22/2024 3:21 PM EDT [facility] MPV 12/22/2024 3:21 PM EDT [facility] Comment:Test not performed. Neutrophil % 68.8 % 12/22/2024 3:21 PM EDT [facility] Immature Grans % 0.2 0.0 - 0.9 % 12/22/2024 3:21 PM EDT [facility] Lymphocyte % 18.9 % 12/22/2024 3:21 PM EDT [facility] Monocyte % 8.8 % 12/22/2024 3:21 PM EDT [facility] Eosinophil % 2.9 % 12/22/2024 3:21 PM EDT [facility] Basophil % 0.4 % 12/22/2024 3:21 PM EDT [facility] Neutrophil # 3.36 1.50 - 7.80 10*3/uL 12/22/2024 3:21 PM EDT [facility] Immature Grans # <0.03 <=0.03 10*3/uL 12/22/2024 3:21 PM EDT [facility] Lymphocyte # 0.90 0.85 - 3.90 10*3/uL 12/22/2024 3:21 PM EDT [facility] Monocyte # 0.40 0.20 - 0.95 10*3/uL 12/22/2024 3:21 PM EDT [facility] Eosinophil # 0.10 0.02 - 0.50 10*3/uL 12/22/2024 3:21 PM EDT [facility] Basophil # <0.03 0.00 - 0.20 10*3/uL 12/22/2024 3:21 PM EDT [facility] nRBC % 0.0 /100 WBCs 12/22/2024 3:21 PM EDT [facility] nRBC # <0.01 <0.01 10*3/uL 12/22/2024 3:21 PM EDT [facility] Blood Structure of peripheral vein / Unknown Venipuncture / Unknown 12/22/2024 2:14 PM EDT 12/22/2024 2:53 PM EDT us Lauren Hancock MD LAB BLOOD ORDERABLES Fin al Result [facility] [address] [place] [address], [place] * Smooth Muscle Antibody Screen w/Reflex to Titer (12/22/2024 2:14 PM EDT) Smooth Muscle AB Screen NEGATIVE NEGATIVE 12/25/2024 12:24 PM EDT Who@ [facility] Blood Structure of peripheral vein / Unknown Venipuncture / Unknown 12/22/2024 2:14 PM EDT 12/22/2024 2:51 PM EDT Narrative [facility] 12/25/2024 12:24 PM EDT [facility] Received Date:[id number] us Lauren Hancock MD LAB BLOOD ORDERABLES Fin al Result Performing Organization Address City/[facility]/ZIP Co de Phone Number [facility] [address], [place] [address], [place] [phone] Who@ [facility] [address] [facility] [address] [facility], [place] [address], [place] [phone] * (ABNORMAL) Hepatitis C Antibody w/Reflex to PCR (12/22/2024 2:14 PM EDT) Hepatitis C Antibody REACTIVE( A) NON-REACT DEREJE 12/22/2024 10:35 PM EDT Who@ [facility] Comment: Based on this result, the sample will be tested for HCV RNA by a Nucleic Acid Amplification Test (NAAT) to determine if the patient has a current active infection. Blood Structure of peripheral vein / Unknown Venipuncture / Unknown 12/22/2024 2:14 PM EDT 12/22/2024 2:51 PM EDT [facility] M[facility] - 12/22/2024 10:35 PM EDT [facility] Received Date:[id number] us Lauren Hancock MD LAB BLOOD ORDERABLES Fin al Result [facility] [address], [address] [place] [address], [place] [phone] [facility] [address], [place] [address], [place] [phone] * (ABNORMAL) Hepatitis A Antibody, Total (12/22/2024 2:14 PM EDT) Pathologist [facility] Hepatitis A Ab, Total REACTIVE( A) NON-REACT DEREJE 12/22/2024 10:28 PM EDT [facility] Comment: For additional information, please refer to http://education.Jetbay/faq/DPG278 (This link is being provided for informational/ educational purposes only.) Blood Structure of peripheral vein / Unknown Venipuncture / Unknown 12/22/2024 2:14 PM EDT 12/22/2024 2:51 PM EDT [facility] - 12/22/2024 10:28 PM EDT [facility] Received Date:[id number] us Lauren Hancock MD LAB BLOOD ORDERABLES Fin al Result Performing Organization Address City/[facility]/ZIP Co de Phone Number [facility] [address], [place] [address], [place] [phone] Who@ [facility] [address], [place] [address], [place] [phone] * STEPHON Screen, Reflex to Titer, IFA (12/22/2024 2:14 PM EDT) STEPHON Screen, IFA NEGATIVE NEGATIVE 10:48 AM EDT [facility] Comment: STEPHON IFA is a first line [...] AC-0: Negative International Consensus on STEPHON Patterns (https://doi.org/10.1515/vwni-5857-0768) For additional information, please refer to http://education.RewardSnap/faq/TZX644 (This link is being provided for informational/ educational purposes only.) Blood Structure of peripheral vein / Unknown Venipuncture / Unknown 12/22/2024 2:14 PM EDT 12/22/2024 2:52 PM EDT [facility] [place] - 12/24/2024 10:48 AM EDT [facility] Received Date:[id number] us Lauren Hancock MD LAB BLOOD ORDERABLES Fin al Result Performing Organization Address City/[facility] de Phone Number [address] [facility], [place] [address], [place] [phone] Who@ [address], [place] [address], [place] [phone] * Ceruloplasmin (12/22/2024 2:14 PM EDT) Ceruloplasmin 39 14 - 48 mg/dL 12/23/2024 2:32 AM EDT [facility] Blood Structure of peripheral vein / Unknown Venipuncture / Unknown 12/22/2024 2:14 PM EDT 12/22/2024 2:50 PM EDT Narrative [facility] [place] - 12/23/2024 2:32 AM EDT [facility] Received Date:[id number] us Lauren Hancock MD LAB BLOOD ORDERABLES Fin al Result [facility] [address], [place] [address], [place] [phone] Who@ [facility] [address] [facility] [address]rd Floor, [place] [address], [place] [phone] * (ABNORMAL) Zinc (12/22/2024 2:14 PM EDT) Zinc 54(L) 60 - 130 mcg/dL 12/24/2024 7:44 PM EDT [facility] ([facility]) Comment: This test was developed and its analytical performance characteristics have been determined by [employer] [place], [place]. It has not been cleared or approved by the U.S. Food and Drug Administration. This assay has been validated pursuant to the CLIA regulations and is used for clinical purposes. Blood Structure of peripheral vein / Unknown Venipuncture / Unknown 12/22/2024 2:14 PM EDT 12/22/2024 2:50 PM EDT Narrative BALTA CEBALLOSCHANRebecca (NATALIA) - 12/24/2024 7:44 PM EDT [facility] Received Date: Lauren Hancock MD LAB BLOOD ORDERABLES Fin al Result BALTA DA SILVA (NATALIA) [address] [place] [address], [place] * (ABNORMAL) Vitamin A (Retinol) (12/22/2024 2:14 PM EDT) Vitamin A (Retinol) 29(L) 38 - 98 mcg/dL 12/24/2024 6:46 PM EDT BALTA DA SILVA (NATALIA) Comment: Vitamin supplementation within 24 hours prior to blood draw may affect the accuracy of the results. This test was developed and its analytical performance characteristics have been determined by [employer] [place], [place]. It has not been cleared or approved by the U.S. Food and Drug Administration. This assay has been validated pursuant to the CLIA regulations and is used for clinical purposes. Blood Structure of peripheral vein / Unknown Venipuncture / Unknown 12/22/2024 2:14 PM EDT 12/22/2024 2:46 PM EDT Srikanth DA SILVA (NICHOLS) - 12/24/2024 6:46 PM EDT [facility] Received Date:[id number] Lauren Hancock MD LAB BLOOD ORDERABLES Fin al Result Performing Organization Address [facility] Co de Phone Number BALTA CARDONA) [address] [place] [address], * (ABNORMAL) Emma-Dietz Virus VCA, IgG (12/22/2024 2:14 PM EDT) EBV Viral Capsid Ag Ab (IGG) 652.00(H) U/mL 12/23/2024 3:42 AM EDT [facility] Comment: U/mL Interpretation ---- <18.00 Negative 18.00-21.99 Equivocal >21.99 Positive Blood Structure of peripheral vein / Unknown Venipuncture / Unknown 12/22/2024 2:14 PM EDT 12/22/2024 2:50 PM EDT [facility] - 12/23/2024 3:42 AM EDT [facility] Received Date:[id number] Lauren Hancock MD LAB BLOOD ORDERABLES Fin al Result Performing Organization Address City/[facility] de Phone Number [facility]TA [place] [address], [place] [address], Who@ [facility] [address] [facility] [address]rd [address], [place] [address], * Hepatitis B Core Antibody, Total (12/22/2024 2:14 PM EDT) Hepatitis B Core Ab Total NON-REACT DEREJE NON-REACT DEREJE 12/22/2024 7:44 PM EDT [facility] Comment: For additional information, please refer to http://education.Jetbay/faq/CLJ647 (This link is being provided for informational/ educational purposes only.) Blood Structure of peripheral vein / Unknown Venipuncture / Unknown 12/22/2024 2:14 PM EDT 12/22/2024 2:50 PM EDT Narrative [facility] R[facility] - 12/22/2024 7:44 PM EDT [facility] Received Date: Lauren Hancock MD LAB BLOOD ORDERABLES Fin al Result [facility] [address], [place] [address], Who@ [facility] [address] [facility] [address], [place] [address], * Hepatitis C RNA, Quantitative, PCR (12/22/2024 2:14 PM EDT) [facility] Hcv RNA, Quantitative Real Time PCR <15 NOT DETECTED NOT DETECTED IU/mL 12/23/2024 1:16 PM EDT Who@ [facility] Hepatitis C Quantitative PCR Log IU/mL <1.18 NOT DETECTED NOT DETECTED Log IU/mL 12/23/2024 1:16 PM EDT Who@ [facility] Comment: HCV RNA is not detected. [...] more information on this test, go to: http://education.Jetbay/faq/HHT61a0 (This link is being provided for informational/ educational purposes only.) This assay is intended for use as an aid in the diagnosis of HCV infection and the management of HCV infected patients undergoing anti-viral therapy. Blood Structure of peripheral vein / Unknown Venipuncture / Unknown 12/22/2024 2:14 PM EDT 12/22/2024 2:51 PM EDT Srikanth MENEZES - 12/23/2024 1:16 PM EDT [facility] Received Date: us Lauren Hancock MD LAB BLOOD ORDERABLES Fin al Result BALTA MENEZ[place] [address], [place] [address], [place] [phone] Who@ [facility] [address], [place] [address], [place] [phone] * Vitamin D, 25-Hydroxy, Total, Immunoassay (12/22/2024 2:14 PM EDT) [facility] Calcidiol+ercalc idiol 62 30 - 100 ng/mL 12/22/2024 10:26 PM EDT Who@ [facility] Comment: Vitamin D Status 25-OH Vitamin D: Deficiency: <20 ng/mL Insufficiency: 20 - 29 ng/mL Optimal: > or = 30 ng/mL For 25-OH Vitamin D testing on patients on D2-supplementation and patients for whom quantitation of D2 and D3 fractions is required, the QuestAssureD(TM) 25-OH VIT D, (D2,D3), LC/MS/MS is recommended: order code [id number] (patients >2yrs). See Note 1 Note 1 For additional information, please refer to http://education.[employer]/faq/SGK161 (This link is being provided for informational/ educational purposes only.) Blood Structure of peripheral vein / Unknown Venipuncture / Unknown 12/22/2024 2:14 PM EDT 12/22/2024 2:51 PM EDT Srikanth BALTA MENEZES - 12/22/2024 10:26 PM EDT [facility] Received Date:[id number] us Lauren Hancock MD LAB BLOOD ORDERABLES Fin al Result Performing Organization Address City/[facility]/ZIP Co de Phone Number BALTA MENEZES [address], [place] [address], [place] [phone] [facility] [address] [facility] [address] [facility], [place] [address], * Mitochondrial Antibody w/Reflex (12/22/2024 2:14 PM EDT) [facility] Mitochondrial Ab Screen NEGATIVE NEGATIVE 12/25/2024 12:24 PM EDT Who@ [facility] Blood Structure of peripheral vein / Unknown Venipuncture / Unknown 12/22/2024 2:14 PM EDT 12/22/2024 2:51 PM EDT Narrative [facility] [place] - 12/25/2024 12:24 PM EDT [facility] Received Date: us Lauren Hancock MD LAB BLOOD ORDERABLES Fin al Result [facility] [address], [place] [address], Who@ [facility] [address], [place] [address], * Toxoplasma gondii Antibody, IgG (12/22/2024 2:14 PM EDT) [facility] Toxoplasma Ab IgG <7.20 IU/mL 12/23/2024 4:53 AM EDT Who@ [facility] Comment: IU/mL Interpretation ------ <7.20 Negative 7.20-8.79 Equivocal >8.79 Positive Blood Structure of peripheral vein / Unknown Venipuncture / Unknown 12/22/2024 2:14 PM EDT 12/22/2024 2:51 PM EDT Narrative [facility] [place] - 12/23/2024 4:53 AM EDT [facility] Received Date:[id number] us Lauren Hancock MD LAB BLOOD ORDERABLES Fin al Result [facility] [address], [place] [address], Who@ [facility] [address], [place] [address], * HIV-1/2 Antigen/Antibodies 4th Generation w/Reflex (12/22/2024 2:14 PM EDT) HIV Final Interp See Comments 12/22/2024 7:45 PM EDT [facility] Comment: HIV Negative HIV-1 antigen and HIV-1/HIV-2 antibodies were not detected. There is no laboratory evidence of HIV infection. Blood Structure of peripheral vein / Unknown Venipuncture / Unknown 12/22/2024 2:14 PM EDT 12/22/2024 2:50 PM EDT [facility] [place] - 12/22/2024 7:45 PM EDT [facility] Received Date: Lauren Hancock MD LAB BLOOD ORDERABLES Fin al Result [facility] [address] [facility], [place] [address], Who@ [facility] [address] [facility] [address] [facility], [place] [address], * Hepatitis B Surface Antibody (12/22/2024 2:14 PM EDT) Pathologist [facility] Hepatitis B Surface Ab Immunity, Qn 173 > OR = 10 mIU/mL 12/22/2024 10:28 PM EDT [facility] Comment: PATIENT HAS IMMUNITY TO HEPATITIS B VIRUS. For additional information, please refer to http://education.Jetbay/faq/OFY353 (This link is being provided for informational/ educational purposes only). Blood Structure of peripheral vein / Unknown Venipuncture / Unknown 12/22/2024 2:14 PM EDT 12/22/2024 2:51 PM EDT Srikanth MENEZES - 12/22/2024 10:28 PM EDT [facility] Received Date:[id number] us Lauren Hancock MD LAB BLOOD ORDERABLES Fin al Result Performing Organization Address City/[facility]/ZIP Co de Phone Number BALTA MENEZES [address] [facility], [place] [address], Who@ [facility] [address], [place] [address], * Hepatitis B Surface Antigen w/Confirmation (12/22/2024 2:14 PM EDT) Pathologist [facility] Hepatitis B Surface Antigen NON-REACT DEREJE NON-REACT DEREJE 12/23/2024 10:30 AM EDT [facility] Comment: For additional information, please refer to http://Jogg.Jetbay/faq/VPC596 (This link is being provided for informational/ educational purposes only.) Blood Structure of peripheral vein / Unknown Venipuncture / Unknown 12/22/2024 2:14 PM EDT 12/22/2024 2:52 PM EDT Srikanth [facility] - 12/23/2024 10:30 AM EDT [facility] Received Date:[id number] us Lauren Hancock MD LAB BLOOD ORDERABLES Fin al Result Performing Organization Address City/[facility]/ZIP Co de Phone Number BALTA MENEZES [address], [place] [address], [place] [phone] Who@ [facility] [address], [place] [address], * (ABNORMAL) Cytomegalovirus Antibody, IgG (12/22/2024 2:14 PM EDT) Pathologist [facility] Cytomegalovirus Antibody (IgG) >10.00(H ) U/mL 12/23/2024 3:42 AM EDT [facility] Comment: U/mL Interpretation ----- <0.60 Negative 0.60-0.69 Equivocal > or = 0.70 Positive A positive result indicates that the patient has antibody to CMV. It does not differentiate between an active or past infection. Blood Structure of peripheral vein / Unknown Venipuncture / Unknown 12/22/2024 2:14 PM EDT 12/22/2024 2:50 PM EDT Narrative [facility] - 12/23/2024 3:42 AM EDT [facility] Received Date:[id number] Lauren Hancock MD LAB BLOOD ORDERABLES Fin al Result Performing Organization Address City/[facility]/ZIP Co de Phone Number [facility] [address] [facility], [place] [address], [place] [phone] Who@ [address], [place] [address], [place] [phone] * PTT (12/22/2024 2:14 PM EDT) aPTT 29.1 23.0 - 32.0 Seconds 12/22/2024 3:16 PM EDT [facility] Comment: Current PTT reagent is not sensitive to detect all Lupus Anticoagulant (LA) Inhibitor Cases. If a LA is suspected, please order a Lupus Anticoagulation w/ Reflex Test which is performed at [email or web address] in [place], [place]. Blood Structure of peripheral vein / Unknown Venipuncture / Unknown 12/22/2024 2:14 PM EDT 12/22/2024 2:53 PM EDT us Lauren Hancock MD LAB BLOOD ORDERABLES Fin al Result Performing Organization Address City/[facility]/ZIP Co de Phone Number [facility] [address] [place] [address], * (ABNORMAL) Protime-INR (12/22/2024 2:14 PM EDT) PT 12.6(H) 9.6 - 12.4 Seconds 12/22/2024 3:16 PM EDT [facility] INR 1.2 0.9 - 1.1 12/22/2024 3:16 PM EDT [facility] Comment:The optimal therapeu tic INR range for patients treated with Vitamin K antagonists (VKAS, e.g., Warfarin) is 2.0 to 3.5. Discuss the desired range with your doctor/care team. Blood Structure of peripheral vein / Unknown Venipuncture / Unknown 12/22/2024 2:14 PM EDT 12/22/2024 2:53 PM EDT us Lauren Hancock MD LAB BLOOD ORDERABLES Fin al Result Performing Organization Address City/[facility]/ZIP Co de Phone Number [facility] [address] [place] [address], * Type and Screen (12/22/2024 2:14 PM [...] Hancock MD LAB BLOOD BANK TEST ORDE MAGALIS Final Result [facility] [address] [place] [address], [place] [phone] * Varicella Zoster Antibody, IgG (12/22/2024 2:14 PM EDT) Varicella Zoster Virus Antibody 30.50 S/CO 12/22/2024 10:41 PM EDT Who@ [facility] Comment: Signal to Cut-off S/CO Interpretation [...] PM EDT 12/22/2024 2:51 PM EDT Narrative [facility] 12/22/2024 10:41 PM EDT [facility] Received Date:[id number] us Lauren Hancock MD LAB BLOOD ORDERABLES Fin al Result [address] [facility], [place] [address], [place] [phone] Who@ [address], [place] [address], [place] [phone] * Phosphorus (12/22/2024 2:14 PM EDT) Phosphorus 4.0 2.5 - 4.5 mg/dL 12/22/2024 3:36 PM EDT [facility] Blood Structure of peripheral vein / Unknown Venipuncture / Unknown 12/22/2024 2:14 PM EDT 12/22/2024 2:51 PM EDT us Lauren Hancock MD LAB BLOOD ORDERABLES Fin al Result Performing Organization Address City/[facility]/ZIP Co de Phone Number [facility] [address] [place] [address], * Magnesium (12/22/2024 2:14 PM EDT) MG 1.6 1.6 - 2.4 mg/dL 12/22/2024 3:36 PM EDT [facility] Blood Structure of peripheral vein / Unknown Venipuncture / Unknown 12/22/2024 2:14 PM EDT 12/22/2024 2:51 PM EDT Lauren Hancock MD LAB BLOOD ORDERABLES Fin al Result Performing Organization Address [facility] Co de Phone Number [facility] [address] [place] [address], [place] * (ABNORMAL) Hemoglobin A1c (12/22/2024 2:14 PM EDT) Hemoglobin A1C 5.9(H) <5.7 % 12/22/2024 8:27 PM EDT [facility] Comment: For someone without known diabetes, a [...] (MG/DL) 123 mg/dL 12/22/2024 8:27 PM EDT [facility] eAG (MMOL/L) 6.8 mmol/L 12/22/2024 8:27 PM EDT [facility] Blood Structure of peripheral vein / Unknown Venipuncture / Unknown 12/22/2024 2:14 PM EDT 12/22/2024 2:51 PM EDT Narrative [facility] [place] - 12/22/2024 8:27 PM EDT [facility] Received Date:[id number] us Lauren Hancock MD LAB BLOOD ORDERABLES Fin al Result [facility] [place] [address], [place] [address], [place] [phone] [facility] [address] [facility] [address], [place] [address], [place] [phone] * Ferritin (12/22/2024 2:14 PM EDT) Ferritin 172.0 11.0 - 306.0 ng/mL 12/22/2024 3:36 PM EDT [facility] Blood Structure of peripheral vein / Unknown Venipuncture / Unknown 12/22/2024 2:14 PM EDT 12/22/2024 2:51 PM EDT us Lauren Hancock MD LAB BLOOD ORDERABLES Fin al Result Performing Organization Address City/[facility]/ZIP Co de Phone Number [facility] [address] [place] [address], [place] * Bilirubin, Direct (12/22/2024 2:14 PM EDT) Bilirubin, Direct 0.3 <=0.4 mg/dL 12/22/2024 3:36 PM EDT [facility] Blood Structure of peripheral vein / Unknown Venipuncture / Unknown 12/22/2024 2:14 PM EDT 12/22/2024 2:51 PM EDT us Lauren Hancock MD LAB BLOOD ORDERABLES Fin al Result [facility] [address] [place] [address], [place] * Ethanol (12/22/2024 2:14 PM EDT) Ethanol <10 <10 mg/dL 12/22/2024 3:38 PM EDT [facility] Blood Structure of peripheral vein / Unknown Venipuncture / Unknown 12/22/2024 2:14 PM EDT 12/22/2024 2:50 PM EDT Lauren Hancock MD LAB BLOOD ORDERABLES Fin al Result [facility] [address] [place] [address], * (ABNORMAL) Lipid panel (12/22/2024 2:14 PM EDT) Cholesterol 203(H) <=199 mg/dL 12/22/2024 3:36 PM EDT [facility] Triglycerides 171(H) <=149 mg/dL 12/22/2024 3:36 PM EDT [facility] Cholesterol, HDL 39(L) 40 - 59 mg/dL 12/22/2024 3:36 PM EDT [facility] Cholesterol, Non-HDL 164 mg/dL 12/22/2024 3:36 PM EDT [facility] LDL Cholesterol 130(H) <100 mg/dL 12/22/2024 3:36 PM EDT [facility] VLDL 34.2 mg/dL 12/22/2024 3:36 PM EDT [facility] Cholesterol/HDL Ratio 5.2(H) <5.0 12/22/2024 3:36 PM EDT [facility] Blood Structure of peripheral vein / Unknown Venipuncture / Unknown 12/22/2024 2:14 PM EDT 12/22/2024 2:51 PM EDT Narrative [facility] - 12/22/2024 3:36 PM [...] Desirable <110 Borderline High 110-129 High >=130 us Lauren Hancock MD LAB BLOOD ORDERABLES Fin al Result [facility] [address] [place] [address], * (ABNORMAL) Comprehensive Metabolic Panel (12/22/2024 2:14 PM EDT) NA 141 135 - 145 mmol/L 12/22/2024 3:36 PM EDT [facility] K 3.9 3.5 - 5.3 mmol/L 12/22/2024 3:36 PM EDT [facility] Cl 101 98 - 107 mmol/L 12/22/2024 3:36 PM EDT [facility] CO2 27 22 - 32 mmol/L 12/22/2024 3:36 PM EDT [facility] Anion Gap 13 5 - 15 12/22/2024 3:36 PM EDT [facility] Glucose 85 65 - 99 mg/dL 12/22/2024 3:36 PM EDT [facility] Creatinine 0.77 0.50 - 1.20 mg/dL 12/22/2024 3:36 PM EDT [facility] Calcium 10.5 8.6 - 10.5 mg/dL 12/22/2024 3:36 PM EDT [facility] Total Protein 8.3(H) 6.0 - 8.0 g/dL 12/22/2024 3:36 PM EDT [facility] Albumin 3.9 3.5 - 5.2 g/dL 12/22/2024 3:36 PM EDT [facility] Bilirubin, Total 0.6 0.2 - 1.2 mg/dL 12/22/2024 3:36 PM EDT [facility] Alkaline Phosphatase 71 35 - 129 U/L 12/22/2024 3:36 PM EDT [facility] AST 35 10 - 40 U/L 12/22/2024 3:36 PM EDT [facility] ALT 30 10 - 40 U/L 12/22/2024 3:36 PM EDT [facility] BUN 12 7 - 23 mg/dL 12/22/2024 3:36 PM EDT [facility] eGFR 83 >=60 mL/min/1. 73m2 12/22/2024 3:36 PM EDT [facility] Comment:The estimated glomer ular filtration rate (eGFR) is calculated using a new formula developed by the NKF-ASN task force to eliminate race-based correction factors. The new formula uses serum/plasma creatinine, age, and gender to determine eGFR. A value below 60mls/min might indicate kidney disease and will be flagged. For additional information, see Land et al, Am J Kidney Dis. 2021;79(2):268- 288, A Unifying Approach for GFR estimation: Recommendations of the NKF-ASN Task Force on Reassessing the Inclusion of Race in Diagnosing Kidney Disease . Globulin, Total 4.4(H) 2.1 - 4.2 g/dL 12/22/2024 3:36 PM T 51wanNVHouston [facility] A/G Ratio 0.9(L) 1.5 - 3.0 12/22/2024 3:36 PM T [facility] Blood Structure of peripheral vein / Unknown Venipuncture / Unknown 12/22/2024 2:14 PM EDT 12/22/2024 2:51 PM EDT Lauren Hancock MD LAB BLOOD ORDERABLES Fin al Result [facility] [address] [place] [address], [place] * IMAGING - SCANNED (11/19/2024 4:50 PM EDT) Anatomical Region Laterality Modality Other us Unknown Provider SCANNED PROCEDURES Final Res ult * LAB - SCANNED (10/22/2024 4:48 PM EDT) us Unknown Provider LAB HISTORICAL RESULTS Final Result from Last 3 Months Insurance [address] [place] [id number] [place] Care Teams Kiln Firer Relationship Specialty Start Date End Date Darius Tamayo MD [address] [place] [address] PCP - General Gastroenterology 12/22/24
--- OUTSIDE RECORDS SUMMARY | 2025-01-18 16:58 | XMS_ITS | Encounter Summary ---
Author Organization [facility] Address [address] [place] [address] Care Team Providers Care Ironworker Apprentice Shop Name Role Phone Darius Tamayo MD Primary Care Provider [phone] Encounter Details Date Type Department Care Team (Late st Contact Info) Description 01/15/2025 Orders Only [facility] Transplant Department [address] [place] [address] Sabrina Dahl RN Encounter for pre-transplant evaluation [...] Description 02/12/2025 11:00 AM EDT Office Visit [facility] Building 4th floor Cardiology Medicine [address] [place] [address] Louver Door Assembler: James Reynoso MD [address] [place] [address] 03/18/2025 2:00 PM EST Follow-Up [facility] Liver Transplant Services [address] [place], [place] [phone] Lauren Hancock MD [address] [place] [address] Scheduled Orders Name Type Priority Associated Diagnoses Orde r Schedule ABO/Rh Blood Type Lab Routine Encounter for pre-transplant evaluation for liver transplant Expected: 01/15/2025, Expires: 01/15/2026 documented as of this encounter Visit Diagnoses Diagnosis Encounter for pre-transplant evaluation for liver transplant- Primary documented in this encounter Care Teams Ironworker Apprentice Shop Relationship Specialty Start Date End Date Darius Tamayo MD [address] [place] [address] PCP - General Gastroenterology 12/22/24 documented as of this encounter
--- OUTSIDE RECORDS SUMMARY | 2025-01-18 16:59 | XMS_ITS ---
Author Organization [facility] Address [address] [place] [address] Care Team Providers Care Winding Inspector Name Role Phone Darius Tamayo MD Primary Care Provider [phone] Transplant Episode Liver Candidate [facility] ([place], [place]) - [facility] Evaluation began on 12/22/2024 Marked as Active on 12/22/2024 Reason: Workup Liver CoordinatorSabrina Dahl RN Phone: N/A Fax: N/A Email: N/A Scores Score Value Updated Expires Exceptions/Jenanie sons CPRA Not available MELD (Calc) 9 12/22/2024 [place] Organ Diagnosis Organ Primary Contributory Liver Primary Liver Malign kary: Hepatoma (HCC) and Cirrhosis 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) Care Team Name Role Phone Fax Email Sabrina Dahl RN Liver Coordinator N/A N/A N/A Lauren Hancock MD Surgical Nurse Practitioner [phone] Rayna [email or web address] Darius Tamayo MD Referring Physician [phone] [email or web address] Pre-Transplant Referred: 12/01/2024 Evaluation began: 12/22/2024 Appointments (12/18/2024 - 02/17/2025) When With Visit Type Description 12/22/2024 Transplant - Mick Dahl Transplant Evaluation Visit Encounter for pre-transplant evaluation for liver transplant (Primary Dx) 12/22/2024 Transplant - Fawn Hancock Transplant Evaluation Visit Hepatocellular carcinoma (HCC) (Primary Dx); Metabolic dysfunction-associated steatohepatitis (MASH); Chronic hepatitis C without hepatic coma (HCC); 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) 01/15/2025 Transplant - Magen Pagan Transplant Evaluation Visit 01/15/2025 Transplant - Chang Posey Transplant Evaluation Visit Encounter for pre-transplant evaluation for chronic liver disease (Primary Dx); Metabolic dysfunction-associated steatohepatitis (MASH); Hepatocellular carcinoma (HCC); Chronic hepatitis C without hepatic coma (HCC); Screening examination for infectious disease; Positive CMV IgG serology; EBV seropositivity; Immune to hepatitis B; Immune to hepatitis A 01/15/2025 Transplant - Lavelle Coleman Transplant Evaluation Visit Encounter for pre-transplant evaluation for liver transplant (Primary Dx) 01/15/2025 Transplant - Sisi Blank Transplant Evaluation Visit Encounter for pre-transplant evaluation for chronic liver disease (Primary Dx) 01/15/2025 Transplant - Magen Mcgregor Transplant Evaluation Visit 01/15/2025 Transplant - Sisi Robba nt Evaluation Visit Encounter for pre-transplant evaluation for liver transplant
--- OUTSIDE RECORDS SUMMARY | 2025-01-18 16:59 | XMS_ITS | Encounter Summary ---
Author Organization [employer] Address [address] [facility] 7t [place] [address] Care Team Providers Care Manager Metal Name Role Phone Stephen Sudha WEI Primary Care Provider [phone] Everett Rojas MD Unavailable [phone] Encounter Details Date Type Department Care Team (Latest Contact Info) Description 01/13/2025 Travel Social History Tobacco Use Types Packs/Day [...] Description 02/09/2025 11:00 AM EDT Clinical Support [facility] MED & PEDS [address] [place] [address] Nichole Lucio, MONAE [address] [place] [address] documented as of this encounter Visit Diagnoses Not on filedocumented in this encounter Additional Health Concerns Assessment Noted Time PHQ-9 Depression Total Score: 7 10/08/19 25 7:52 AM EDT documented as of this encounter Care Teams Manager Metal Relationship Specialty Start Date End Date Sudha Mitchell ANP [address] [place] [address] PCP - General Family Medicine 09/29/19 Everett Rojas MD [address] 3rd [place] [address] Cardiology 04/21/24 documented as of this encounter
== END 2025-01-18 14:34 | disposition home or self-care (01) ==
LOC: HO.HHCX 14:33
PROVIDERS: PCP Nurse Practitioner Primary Care; Visit Provider Family Medicine
DX: M54.2 Cervicalgia (principal)
CPT/HCPCS: 72040

== ENCOUNTER → 2025-01-18 14:58 | Outpatient (BNV) | payer MEDICAID, SELFPAY | PROVIDERS: PCP Nurse Practitioner Primary Care; Visit Provider Radiology Diagnostic Radiology | DX: M47.812 Spondylosis without myelopathy or radiculopathy, cervical region (principal); M54.2 Cervicalgia | CPT/HCPCS: 72040 ==

== ENCOUNTER 2025-01-26 08:47 | Emergency (ER) | payer MEDICARE, MEDICAID, SELFPAY ==
--- NOTE | ~2025-01-26 | CT_ITS ---
EXAMINATION: CT CERVICAL SPINE WITHOUT CONTRAST CLINICAL INFORMATION: Swelling and pain COMPARISON: December 31, 2023. TECHNIQUE: Contiguous axial images through the cervical spine using 3 mm collimation with bone and soft tissue algorithm. Sagittal and coronal reformatted images acquired. This CT examination was performed using dose optimization techniques as appropriate, variously including the following: *Automated exposure control *Adjustment of mA and/or kV according to patient size (this includes techniques or standardized protocols for targeted exams where dose is matched to indication/reason for exam; i.e. extremities or head) *Use of iterative reconstruction technique. DLP: 277.35 mGy centimeter. FINDINGS: Craniocervical junction is intact with normal alignment between the occipital condyles and the lateral masses of C1. Partially calcified pannus formation, periodontal C1 region. Marginal osteophyte formation, endplate sclerosis subchondral cyst formation and decreased intervertebral disc height at C3-4, C4-5 and to a lesser extent C5-6 and C7-T1 levels. There is normal alignment between the vertebral bodies and the facet joints. C1 is intact. C2 is intact. C3 is intact. C4 is intact. C5 is intact. C6 is intact. C7 is intact. No prevertebral compartment hematoma. Calcified plaques in the carotid arteries. Punctate calcifications in the palatine tonsils. Tympanic cavities and mastoid cells are aerated. Calcified plaques in the cavernous and petrous segments both ICAs. Calcified plaques in the V3 segment right vertebral artery. Nodular not enlarged thyroid gland. Calcified plaques in the main branches of the thoracic aorta. CT/CT cervical spine wo IV con IMPRESSION: Multilevel cervical spondylosis C3-4, C4-5 and C5-6 without acute fracture or trauma-related listhesis. Fleischner guidelines were followed. Electronically signed by: Slim Gómez MD 01/26/2025 11:48 AM EDT
--- NOTE | ~2025-01-26 | CT_ITS ---
EXAMINATION: CT HEAD WITHOUT CONTRAST CLINICAL INFORMATION: swelling, pain COMPARISON: December 31, 2023 TECHNIQUE: Contiguous axial imaging was performed from the skull base to vertex without intravenous administration of contrast. This CT examination was performed using dose optimization techniques as appropriate, variously including the following: *Automated exposure control *Adjustment of mA and/or kV according to patient size (this includes techniques or standardized protocols for targeted exams where dose is matched to indication/reason for exam; i.e. extremities or head) *Use of iterative reconstruction technique DLP: 593 mGy-cm FINDINGS: Bilateral multifocal patchy and confluent subcortical deep white matter hypodensities involving centrum semiovale and faye radiata. No acute intracranial hemorrhage, mass effect, midline shift, hydrocephalus or herniation. Perez-white matter differentiation is normal. Posterior cranial fossa contents demonstrated normal position of the cerebellar tonsils. Sellar/suprasellar region demonstrated no gross masses. Calcified plaques in the V3/V4 segments right vertebral artery, basilar artery, cavernous supracavernous segments both ICAs. No acute fracture in the bony calvarium or the skull base. No air-fluid levels in the paranasal sinuses. For pneumatization of the frontal sinuses. Tympanic cavities and mastoid air cells are aerated. CT/CT head/brain wo IV con IMPRESSION: No acute intracranial hemorrhage. White matter disease likely related to small vessel occlusive disease. Atherosclerosis disease, intracranial. Electronically signed by: Slim Gómez MD 01/26/2025 11:39 AM EDT
[2025-01-26 09:05] VITALS: BP 150/74; PULSE 69; RESP 16; TEMP 36.4; O2SAT 97; BMI 29.0
--- NOTE | 2025-01-26 10:50 | ED_ITS ---
HPI - General Adult General Chief complaint: Neck Pain/Injury Stated complaint: R arm pain/stiffness, neck pain Time Seen by Provider: 01/26/25 10:49 Source: patient Mode of arrival: ambulatory Limitations: no limitations History of Present Illness ED Provider: Molly Mata PA-C HPI narrative: Patient is a 69 year old assigned female at with a history of PAF on Eliquis, liver cirrhosis, hepatocellcular carcinoma s/p chemo embolization at [facility], [place], presenting to the emergency department today with right sided neck and upper arm pain. Patient states that over the last 2 weeks she has had right sided neck and shoulder pain for which she been given oxycodone, tramadol, and tizanidine. Patient states that none of these have helped. Patient denies any other complaints at this time. Patient states that she has not seen a spinal specialist. Patient states that the patient's son who she was recently around just tested positive for COVID-19 so she would like to be tested. Patient states that her right wrist is burned from a heating patch she used on the area and didn't remove. Related Data Home Medications ?Medication ?Instructions ?Recorded ?Confirmed montelukast 10 mg tablet 10 mg PO BEDTIME 01/31/21 albuterol sulfate 90 mcg/actuation 2 puff PO Q4-6H PRN sob 05/15/21 12/02/24 aerosol inhaler (ProAir HFA) fluticasone propionate 110 1 puff inhalation BID 05/1512/02/24 mcg/actuation HFA aerosol inhaler (Flovent HFA) calcium 600 mg (as 1 tab PO DAILY 01/22/2211/11 carbonate)-vitamin D3 10 mcg (400 unit) tablet lidocaine 5 % topical patch 1 - 2 patch topical DAILY PRN pain 01/22/22 12/02/24 (Lidoderm) tramadol 50 mg tablet 50 - 100 mg PO Q12H PRN Pain 01/22/22 12/02/24 (Scale Score 7-10) mometasone 100 mcg/actuation HFA 1 puff inhalation BID 09/14/24 12/02/24 aerosol inhaler (Asmanex HFA) Previous Rx's ?Medication ?Instructions ?Recorded cholecalciferol (vitamin D3) 25 25 mcg PO QAM #90 tabs 06/10/24 mcg (1,000 unit) tablet hydrochlorothiazide 25 mg tablet 25 mg PO QAM #90 tabs 07/10/24 metoprolol tartrate 50 mg tablet 50 mg PO BID #180 tab s 11/18/24 apixaban 5 mg tablet (Eliquis) 5 mg PO BID #60 tabs prednisone 20 mg tablet 40 mg (2 x 20 mg) PO DAILY C OPD 01/26/25 exacerbation 5 days #10 tabs Allergies Allergy/AdvReac Type Severity Reaction Status Date / Time rivaroxaban (From XARELTO) Allergy Intermediate GI BLEEDING Verified 01/26/25 09:08 SEAFOOD Allergy Intermediate RASH Uncoded 12/08/24 11:19 Review of Systems 2 Constitutional: Constitutional: Reports as per HPI Eyes: Eyes: Reports as per HPI ENT: Reports as per HPI Cardiovascular: Cardiovascular: Reports as per HPI Respiratory: Respiratory: Reports as per HPI Gastrointestinal: Gastrointestinal: Reports as per HPI Genitourinary: Genitourinary: Reports as per HPI Musculoskeletal: Musculoskeletal: Reports as per HPI Integumentary/Breasts: Skin/Breast: Reports as per HPI Neurologic: Reports as per HPI Psychiatric: Psychiatric: Reports as per HPI Endocrine: Endocrine: Reports as per HPI Hematologic/Lymphatic: Hematologic/Lymphatic: Reports as per HPI Allergic/Immunologic: Allergic/Immunologic: Reports as per HPI PMF Past Medical History Attestation statement: The following information was validated with the patient. Source: old records reviewed and nursing notes reviewed Medical History Hemorrhage of gastrointestinal tract, unspecified PAF (paroxysmal atrial fibrillation) Tubular adenoma of colon Low vitamin D level Atrial fibrillation Cirrhosis of liver Asthma Hepatitis B Surgical History Hx of cataract surgery History of eyelid surgery History of esophagogastroduodenoscopy (EGD) Hx of colonoscopy History of total abdominal hysterectomy and bilateral salpingo-oophorectomy History of 3 sections Family History Family History Father No problems noted. Mother No problems noted. 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 Physical Exam ED Vital Signs: Vital Signs - 24 hr 01/26/25 09:05 01/26/25 12:59 Temperature 97.5 F 97.5 F Pulse Rate 69 69 Respiratory Rate 16 16 Blood Pressure 150/74 H 150/74 H Pulse Oximetry 97 97 Oxygen Delivery Method Room Air Room Air BMI result Body Mass Index 29.0 Const General: cooperative, no acute distress, alert and awake Nutritional Appearance: well nourished Orientation/consciousness: patient oriented x3 HENMT Head: Yes normal to inspection and Yes atraumatic Ears: hearing grossly normal bilaterally and external ears normal General nose exam: Normal external nose present, no nasal discharge noted and no epistaxis Face and sinus: Yes normal facial exam, No abrasion and No laceration Mouth: Normal oral and palatal mucosa present, no drooling and no muffled voice Eyes General: appearance normal, both eyes and all related structures Periorbital: periorbital findings normal Eyelids: Yes eyelids normal Conjunctivae: conjunctivae normal Pupils: Equal, round and reactive pupils present EOM: EOMs intact bilaterally Neck Neck: Yes normal visual inspection and Yes full ROM Resp Effort & Inspection: normal respiratory effort and able to speak in complete sentences Neuro General: patient oriented x3, moves all extremities and CN's II-XI intact bilaterally Cranial nerves: Yes Equal, round and reactive pupils present Cognition (Neuro): normal cognition Extrem General: Yes full ROM and Yes capillary refill normal Elbow/forearm/wrist images: 2 1. Small superficial burn - no evidence of surrounding infection Psych Appearance: grossly normal Mental Status: mental status grossly normal Affect: normal affect Attitude: cooperative Thought process: Normal thought process present Thought content: Normal thought content present Insight: Good insight present (Psych) Medications Administered Discontinued Medications Generic Name Dose Route Start Last Admin Trade Name Freq PRN Reason Stop Dose Admin Methylprednisolone Sodium Succinate 60 mg 01/26/25 11:02 01/26/25 11:41 Methylprednisolone Sod Succ 125 Mg/2 Ml Vial IM 01/26/25 11:03 60 mg ONCE ONE Administration Medical Decision Making Medical Decision Making MDM Narrative: Patient is a 69 year old assigned female at with a history of PAF on Eliquis, liver cirrhosis, hepatocellcular carcinoma s/p chemo embolization at [facility], [place], presenting to the emergency department today with right sided neck and upper arm pain. Patient's physical exam was unremarkable. Patient's CT head and c-spine showed no acute process. Patient's CT of the c- spine did show evidence of spondylosis. Patient's COVID-19 and Influenza testing was negative. Patient's clinical presentation is most consistent with cervical radiculopathy and a superficial right dorsal wrist burn. I explained my physical exam findings as well as all test results to the patient. I answered all questions asked by the patient. I stressed the importance of the patient taking her medication as directed (either prescribed or as the over the counter packaging recommends). I stressed the importance of the patient following up with her primary care provider and a senior talent acquisition specialist. I stressed the importance of the patient returning to the emergency department immediately if her symptoms were to worsen or if she were to develop any dizziness, shortness of breath, difficulty breathing, chest pain, blurry vision, loss of vision, nausea, vomiting, abdominal pain, fever, chills, back pain, or any other complaints. Patient verbalized agreement and understanding with this treatment plan and discharge. Differential Diagnosis Differential Diagnoses: The differential diagnosis associated with the presentation includes Right sided upper extremity pain Cervical radiculopathy Admission/Observation Consideration of admission/observation: Escalation of care including admission/observation considered Patient would have been admitted to the hospital had her work up had any findings where hospital admission was appropriate and her clinical presentation warranted hospital admission. Lab Data MDM Lab Attestation statement: I reviewed the patient's lab results. My interpretation of these studies and their corresponding values is that they are grossly normal. Labs: Lab Results 01/26/25 Range/Units 11:38 COVID-19 (SOURAV) Negative (Negative) COVID-19 Clin Com See Note Influenza Type A (DEBORA) Negative (Negative) Influenza Type B (DEBORA) Negative (Negative) Influenza A & B Note See Note Independent Interpretation I performed an independent interpretation of an: CT Scan Interpretation: My interpretation is in agreement with the radiologist's impression of these imaging studies. L Report Number: [id number]: Total DLP = 593.00 mGy-cm Reason for Exam: swelling, pain EXAMINATION: CT HEAD WITHOUT CONTRAST CLINICAL INFORMATION: swelling, pain COMPARISON: December 31, 2023 TECHNIQUE: Contiguous axial imaging was performed from the skull base to vertex without intravenous administration of contrast. This CT examination was performed using dose optimization techniques as appropriate, variously including the following: *Automated exposure control *Adjustment of mA and/or kV according to patient size (this includes techniques or standardized protocols for targeted exams where dose is matched to indication/reason for exam; i.e. extremities or head) *Use of iterative reconstruction technique DLP: 593 mGy-cm FINDINGS: Bilateral multifocal patchy and confluent subcortical deep white matter hypodensities involving centrum semiovale and faye radiata. No acute intracranial hemorrhage, mass effect, midline shift, hydrocephalus or herniation. Perez-white matter differentiation is normal. Posterior cranial fossa contents demonstrated normal position of the cerebellar tonsils. Sellar/suprasellar region demonstrated no gross masses. Calcified plaques in the V3/V4 segments right vertebral artery, basilar artery, cavernous supracavernous segments both ICAs. No acute fracture in the bony calvarium or the skull base. No air-fluid levels in the paranasal sinuses. For pneumatization of the frontal sinuses. Tympanic cavities and mastoid air cells are aerated. CT/CT head/brain wo IV con IMPRESSION: No acute intracranial hemorrhage. White matter disease likely related to small vessel occlusive disease. Atherosclerosis disease, intracranial. Electronically signed by: Slim Gómez MD 01/26/2025 11:39 AM EDT RP Dictated By: Slim Torres MD Signed By: Electronically signed by Slim Mendoza MD 01/26/25 1139 Report Number: [id number]: Total DLP = 277.00 mGy-cm Reason for Exam: swelling, pain EXAMINATION: CT CERVICAL SPINE WITHOUT CONTRAST CLINICAL INFORMATION: Swelling and pain COMPARISON: December 31, 2023. TECHNIQUE: Contiguous axial images through the cervical spine using 3 mm collimation with bone and soft tissue algorithm. Sagittal and coronal reformatted images acquired. This CT examination was performed using dose optimization techniques as appropriate, variously including the following: *Automated exposure control *Adjustment of mA and/or kV according to patient size (this includes techniques or standardized protocols for targeted exams where dose is matched to indication/reason for exam; i.e. extremities or head) *Use of iterative reconstruction technique. DLP: 277.35 mGy centimeter. FINDINGS: Craniocervical junction is intact with normal alignment between the occipital condyles and the lateral masses of C1. Partially calcified pannus formation, periodontal C1 region. Marginal osteophyte formation, endplate sclerosis subchondral cyst formation and decreased intervertebral disc height at C3-4, C4-5 and to a lesser extent C5-6 and C7-T1 levels. There is normal alignment between the vertebral bodies and the facet joints. C1 is intact. C2 is intact. C3 is intact. C4 is intact. C5 is intact. C6 is intact. C7 is intact. No prevertebral compartment hematoma. Calcified plaques in the carotid arteries. Punctate calcifications in the palatine tonsils. Tympanic cavities and mastoid cells are aerated. Calcified plaques in the cavernous and petrous segments both ICAs. Calcified plaques in the V3 segment right vertebral artery. Nodular not enlarged thyroid gland. Calcified plaques in the main branches of the thoracic aorta. CT/CT cervical spine wo IV con IMPRESSION: Multilevel cervical spondylosis C3-4, C4-5 and C5-6 without acute fracture or trauma-related listhesis. Fleischner guidelines were followed. Electronically signed by: Slim Gómez MD 01/26/2025 11:48 AM EDT Dictated By: Slim Torres MD Signed By: Electronically signed by Slim Mendoza MD 01/26/25 1148 Radiology Impression Discussion of test interpretation with radiology: I have reviewed the radiologist's reading. Discharge Plan Discharge Clinical Impression: Cervical radiculopathy, Cervical spondylosis, Superficial burn Patient Disposition: Home, Self-Care Instructions: Osteoarthritis (DC), Cervical Radiculopathy (ED), Flash Burn of Skin (ED) Additional Instructions: Please keep a close eye on your right wrist burn and avoid using a heating source directly on your skin to avoid worsening your current burn or causing future yañez. Your CT scan of the head was unremarkable. Your CT scan of the neck showed multilevel spondylosis - which can cause inflammation like we discussed. You should follow up with a senior talent acquisition specialist. IF you are prescribed home medications and/or you are taking over the counter medications at home - it is very important you continue to do so as prescribed / directed unless told otherwise. Follow up with your primary care provider. Return to the emergency department immediately if your symptoms worsen or if you develop any numbness, tingling, dizziness, shortness of breath, difficulty breathing, chest pain, blurry vision, loss of vision, nausea, vomiting, abdominal pain, fever, chills, back pain, or any other complaints. Please see the information below about our Patient Portal. If you are not yet enrolled in the [facility] Patient Portal, you will receive an enrollment email invitation following your visit to any [facility] setting. You may also self-enroll in the Patient Portal by visiting our website: [email or web address] The following information is required to access the Patient Portal: - Your [facility] Medical Record Number - Your personal home email address (must match what is in your electronic medical record, Registration staff can assist with this) - Name - Date of Capabilities of the Patient Portal: - Message some providers - View upcoming appointments - Access your health summary, medical history, and visit history - View current conditions and allergies - View procedure and lab results - View your medications, including guidelines, side effects, and precautions - Complete pre-appointment questionnaires requested by your provider - Ready summary reports of your office visits and procedures To access the Patient Portal Mobile [employer], follow these directions: - Search [employer] in the [employer] Store or [employer] - Download the [employer] - Search for [facility] - Enter your login/password Prescriptions: New prednisone 20 mg tablet 40 mg PO DAILY 5 Days Qty: 10 0RF No Action cholecalciferol (vitamin D3) 25 mcg (1,000 unit) tablet 25 mcg PO QAM Qty: 90 2RF hydrochlorothiazide 25 mg tablet 25 mg PO QAM Qty: 90 3RF metoprolol tartrate 50 mg tablet 50 mg PO BID Qty: 180 3RF Eliquis 5 mg tablet 5 mg PO BID Qty: 60 11RF montelukast 10 mg tablet 10 mg PO BEDTIME Flovent HFA 110 mcg/actuation HFA aerosol inhaler 1 puff inhalation BID albuterol sulfate [ProAir HFA] 90 mcg/actuation HFA aerosol inhaler 2 puff PO Q4-6H PRN (Reason: sob) lidocaine [Lidoderm] 5 % adhesive patch,medicated 1 - 2 patch topical DAILY PRN (Reason: pain) calcium carbonate-vitamin D3 600 mg-10 mcg (400 unit) tablet 1 tab PO DAILY tramadol 50 mg tablet 50 - 100 mg PO Q12H PRN (Reason: Pain (Scale Score 7-10)) Asmanex HFA 100 mcg/actuation HFA aerosol inhaler 1 puff inhalation BID Referrals: [facility] [Provider Group, Neurosurgery] Referral Note: Call to establish and follow up with a senior talent acquisition specialist. [facility] [Provider Group, Sports Medicine] Referral Note: Call to establish and follow up with a senior talent acquisition specialist. Sudha Mitchell NP [Primary Care Provider, Internal Medicine] Interventions: ED Discharge Assessment Last Done: 01/26/25 12:59 Discharge Date/Time: 01/26/25 12:59 Print Language: Telugu
[2025-01-26 12:09] LABS: COVID-19 Test Negative (Negative); IDNOW Serial# 16C4AD1C
[2025-01-26 12:15] LABS: IDNOW Serial# 152EDE1D; Influenza B2 Negative (Negative)
--- OUTSIDE RECORDS SUMMARY | 2025-01-26 12:48 | XMS_ITS | Encounter Summary ---
Author Organization [employer] Address [address] [facility] 7t [place] [address] Care Team Providers Care Webfocus Developer Name Role Phone Sudha Mitchell Primary Care Provider [phone] Everett Rojas MD Unavailable [phone] Reason for Visit * Reason Onset Date Comments Med Refill 11/23/2022 Encounter Details Date Type Department Care Team (Late st Contact Info) Description 11/23/2022 Telephone [facility] MEDICINE [address] [place] [address] Sudha Mitchell ANP [address] [place] [address] Med Refill Social History Tobacco Use Types [...] Description 02/09/2025 11:00 AM EDT Clinical Support [facility] CH[facility] MED & PEDS [address] [place] [address] Nichole Lucio, RN [address] [place] [address] 03/22/2025 2:00 PM EST Office Visit [facility] [address] [place] [phone] Sudha Mitchell ANP [address] [place] [address] documented as of this encounter Visit Diagnoses Not on filedocumented in this encounter Care Teams Webfocus Developer Relationship Specialty Start Date End Date Sudha Mitchell ANP [address] [place] [address] PCP - General Family Medicine 09/29/19 Everett Rojas MD [address] [place] [address] Drive 3rd [place] [address] Cardiology 04/21/24 documented as of this encounter
--- OUTSIDE RECORDS SUMMARY | 2025-01-26 12:49 | XMS_ITS | Encounter Summary ---
Author Organization [employer] Address [address] [facility] 7t [place] [address] Care Team Providers Care Pattern Developer Name Role Phone Tom Trujillo Primary Care Provider Everett Rojas MD Unavailable [phone] Reason for Visit * Reason Comments Med Refill Encounter Details Date Type Department Care Team ([facility] st Contact Info) Description 01/22/2025 Refill C [facility] [address] [place] [address] Name, MD Harris [address] [place] [address] Moderate persistent asthma without complication (Primary Dx) Social History Tobacco Use Types [...] Access Q2 Not on file 01/16/2024 Comments No Sex and Gender Information Value Date Recorded Sex Assigned at Female 03/12/2022 10:30 AM EDT Legal Sex Female 10:30 AM EDT Gender Identity Female 04/16/2023 2:17 PM EST Sexual Orientation Straight 03/12/2022 10 :30 AM EDT documented as of this encounter Miscellaneous Notes * Addendum Note - ERIBERTO Woodard - 01/22/2025 2:44 PM EDTAddended by: TMO TRUJILLO on: 01/22/2025 02:44 PM Modules accepted: Orders documented in this encounter Plan of Treatment Upcoming Encounters Date Type Department Care Team (Late st Contact Info) Description 02/09/2025 11:00 AM EDT Clinical Support [facility] CHC MED & PEDS [address] [place] [address] Nichole Lucio, MONAE [address] [place] [address] 03/22/2025 2:00 PM EST Office Visit [facility] MEDICINE [address] [place] [address] Tom Trujillo ANP [address] [place] [address] documented as of this encounter Visit Diagnoses Diagnosis Moderate persistent asthma without complication- Primary documented in this encounter Additional Health Concerns Assessment Noted Time PHQ-9 Depression Total Score: 7 10/08/19 25 7:52 AM EDT documented as of this encounter Care Teams Pattern Developer Relationship Specialty Start Date End Date Tom Trujillo ANP [address] [place] [address] PCP - General Family Medicine 09/29/19 Everett Rojas MD [address] [place] [address] Drive 3rd [place] [address] Cardiology 04/21/24 documented as of this encounter
--- OUTSIDE RECORDS SUMMARY | 2025-01-26 12:49 | XMS_ITS | Encounter Summary ---
Author Organization [employer] Address [address] [facility] [address] [place] [address] Care Team Providers Care Early Childhood Services Coordinator Name Role Phone Sudha Mitchell Primary Care Provider [phone] Everett Rojas MD Unavailable [phone] Reason for Visit * Reason Comments Med Refill Encounter Details Date Type Department Care Team ([facility] st Contact Info) Description 02/20/2024 Refill C [facility] [address] [place] [address] Sudha Mitchell ANP [address] [place] [address] Lumbago of lumbar region with sciatica Social [...] Description 02/09/2025 11:00 AM EDT Clinical Support [facility] MED & PEDS [address] [place] [address] Nichole Lucio, MONAE [address] [place] [address] 03/22/2025 2:00 PM EST Office Visit [facility] MEDICINE [address] [place] [address] Sudha Mitchell ANP [address] [place] [address] documented as of this encounter Visit Diagnoses Diagnosis Lumbago of lumbar region with sciatica documented in this encounter Care Teams Early Childhood Services Coordinator Relationship Specialty Start Date End Date Sudha Mitchell ANP [address] [place] [address] PCP - General Family Medicine 09/29/19 Everett Rojas MD [address] 3rd [place] [address] Cardiology 04/21/24 documented as of this encounter
--- OUTSIDE RECORDS SUMMARY | 2025-01-26 12:49 | XMS_ITS | Encounter Summary ---
Author Organization [employer] Address [address] [place] [address] Care Team Providers Care Cosmetic Sales Name Role Phone Sudha Mitchell Primary Care Provider [phone] Everett Rojas MD Unavailable [phone] Reason for Visit * Reason Comments Med Refill Encounter Details Date Type Department Care Team ([facility] st Contact Info) Description 09/18/2023 Refill C [facility] [address] [place] [address] Sudha Mitchell ANP [address] [place] [address] Lumbago of lumbar region with sciatica Social [...] Description 02/09/2025 11:00 AM EDT Clinical Support [facility] [address] [place] [address] Nichole Lucio, RN [address] [place] [address] 03/22/2025 2:00 PM EST Office Visit [facility] MEDICINE [address] [place] [address] Sudha Mitchell ANP [address] [place] [address] documented as of this encounter Visit Diagnoses Diagnosis Lumbago of lumbar region with sciatica documented in this encounter Care Teams Cosmetic Sales Relationship Specialty Start Date End Date Sudha Mitchell ANP [address] [place] [phone] PCP - General Family Medicine 09/29/19 Everett Rojas MD [address] [place] [address] [address] [place] [address] Cardiology 04/21/24 documented as of this encounter
--- OUTSIDE RECORDS SUMMARY | 2025-01-26 12:49 | XMS_ITS | Clinical Summary ---
Author Organization [employer] Address [address] [place] [address] Care Team Providers Care Medical Insurance Claims Processor Name Role Phone Stephen Tom WEI Primary Care Provider [phone] Everett Rojas MD Unavailable [phone] Allergies Active Allergy Reactions Criticality Noted Date [...] AT BEDTIME 90 tablet 3 025 Active traMADol (Ultram) 50 MG tabletIndicatio ns:Lumbago of lumbar region with sciatica Take 1 tablet (50 mg) by mouth every 12 (twelve) hours if needed for severe pain. 56 tablet 025 Active metoprolol tartrate (Lopressor) 50 MG tablet 50 mg. Active atorvastatin (Lipitor) 20 MG tablet Take 20 mg by mouth Once per day. 025 2025 Active traMADol (Ultram) 50 MG tabletIndicatio ns:Neck pain Take 1 tablet (50 mg) by mouth every 12 (twelve) hours if needed for severe pain. 10 tablet 025 Active lidocaine (Lidoderm) 5 % patchIndication s:Neck pain Apply 1 patch topically Once per day. 30 patch 3 025 Active Diclofenac Sodium 1 % gelIndications: Neck pain Apply 2 G up to 4x/d as needed for joint pain 100 g 2 025 Active tiZANidine (Zanaflex) 2 MG tabletIndicatio ns: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ciatica Take 1 tab as needed up to TID for muscle pain/spasm 30 tablet 025 Active Asmanex HFA 100 MCG/ACT aerosol INHALE 1 PUFF BY MOUTH TWICE DAILY RINSE MOUTH AFTER USING. 13 g 5 025 Active fluticasone furoate (Arnuity Ellipta) 100 MCG/ACT inhalerIndicati ons:Moderate persistent asthma without complication Inhale 1 puff Once per day. Rinse mouth with water after use to reduce aftertaste and incidence of candidiasis. Do not swallow. 30 each 1 025 Active Diclofenac Sodium 1 % gelIndications: Chronic [...] eorder (will not trigger notification to Pharmacy)) Mometasone Furoate (Asmanex HFA) 100 MCG/ACT aerosol INHALE 1 PUFF BY MOUTH TWICE DAILY RINSE MOUTH AFTER USING. 13 g 5 025 2024 Discontinued zinc sulfate (Zincate) 220 (50 Zn) MG capsule Take by mouth Once per day. 025 2024 cyclobenzaprine (Flexeril) 5 MG tabletIndicatio ns:Neck pain Take 1 tablet (5 mg) by mouth if needed in the morning and at bedtime for muscle spasms. 30 tablet 1 025 2024 Discontinued(I neffective) oxyCODONE (Roxicodone) 5 MG immediate release tabletIndicatio ns: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ciatica Take 1 tablet (5 mg) by mouth every 6 (six) hours if needed for severe pain for up to 5 days. 20 tablet 025 2024 Active Problems Problem Noted Date Diagnosed Date [...] in cirrhosis 04/16/2023 Overview (10/06/2024): EGDs via [facility] History of Helicobacter pylori infection 023 Overview (04/16/2023): tx'd 10/2021 via [facility] Cirrhosis of liver without ascites 04/16/2023 Overview (10/06/2024): compensated. thought to be d/t CARTWRIGHT vs. HCV. 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 [address] [place] [address] Name, MD Harris Moderate persistent asthma without complication (Primary Dx) 01/22/[address] [facility] [address] [place] [phone] Tom Trujillo ANP Tracheostomy Tube Check 01/20/2025 6:00 PM EDT Office Visit [facility] [address] [place] [phone] Tom Trujillo ANP 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ciatica (Primary Dx) 01/20/2025 Travel 01/19/2025 Results Follow-Up [facility] [address] [place] [phone] Marcela Crook MD XR CERVICAL SPINE 3V 01/18/2025 1:45 PM EDT Office Visit [facility] [address] [place] [phone] Marcela Crook MD Neck pain (Primary Dx); Dietary counseling; Exercise counseling; Class 1 obesity due to excess calories with serious comorbidity and body mass index (BMI) of 31.0 to 31.9 in adult 01/18/2025 Travel 01/18/[address] [facility] [address] [place] [phone] Tom Trujillo ANP Nurse Triage 01/13/2025 Travel 01/13/2025 Telephone [facility] [address] [place] [address] Nichole Lucio, MONAE 01/08/2025 Telephone [facility] [address] [place] [address] Nichole Lucio, MONAE 01/04/2025 Orders Only GENERIC EXTERNAL DATA DEPARTMENT Provider, Generic External Data 12/30/[address] [address] Nita Mendoza, channel specialist Question 12/25/[address] [address] Connie Felipe, channel specialist Question 12/25/2024 Orders Only [address] [address] Tom Trujillo ANP Atherosclerosis of council 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 ([facility]) (Primary Dx) 12/08/2024 Orders Only GENERIC EXTERNAL DATA DEPARTMENT Provider, Generic External Data 11/18/2024 Orders Only [facility] External Provider, [facility] 11/11/[address] [address] Tom Trujillo ANP Chart Prep 11/06/2024 Refill [facility] [address] [place] [address] Nichole Lucio, RN Lumbago of lumbar region with sciatica 11/06/2024 Travel 11/06/[address] [address] Tom Trujillo ANP Med Refill 10/26/2024 Orders Only [address] [address] Tom Trujillo ANP from Last 3 Months Immunizations Immunization Administration [...] Sign Reading Time Taken Comments Blood Pressure 131/80 01/20/2025 6:01 PM EDT Pulse 77 01/20/2025 6:01 PM EDT Temperature 36.6 C (97.9 F) 01/20/2025 6:01 PM EDT Respiratory Rate 21 01/20/2025 6:01 PM EDT Oxygen Saturation 96% 01/20/2025 6:01 PM EDT Inhaled Oxygen Concentration - - Weight 68 kg (150 lb) 01/20/2025 6:01 PM EDT Height 149.9 cm (4' 11 ) 01/20/2025 6:01 PM EDT Body Mass Index 30.3 01/20/2025 6:01 PM EDT Plan of Treatment Upcoming Encounters Date Type Department Care Team (Late st Contact Info) Description 02/09/2025 11:00 AM EDT Clinical Support [facility] [address] [place] [address] Nichole Lucio, RN [address] [place] [address] 03/22/2025 2:00 PM EST Office Visit [facility] [address] [place] [address] Tom Trujillo ANP [address] [place] [address] Health Maintenance Due Date Last Done Comments [...] 04/12, 10/31/2021, Additional history exists Tobacco Screening 01/20/2026 01/20/2025 DTaP/Tdap/Td Vaccines (3 - Td or Tdap) [...] Procedure Name Priority Date/Time Associated Diagnosis Comments COVID-19 ID NOW (KIM) Routine 01/26/2025 11:38 AM EDT INFLUENZA A B2 ID NOW (KMI) Routine 01/26/2025 11:[address] CERVICAL SPINE WO CONTRAST Routine 01/26/2025 11:[address] HEAD WO CONTRAST Routine 01/26/2025 1 1:11 AM EDT XR CERVICAL SPINE 3V Routine 01/18/2025 3:10 [...] TOMOSYNTHESIS BILATERAL Routine 10/26/2024 1:20 PM EDT HM COLONOSCOPY Routine 10/10/2021 from Last 3 Months or Most Recently Relevant to Health Maintenance Results * Influenza A B2 ID NOW (Kim) (01/26/2025 11:38 AM EDT) IDNOW SERIAL# [id number] [facility] Influenza A Negative Negative [facility] Influenza B2 Negative Negative [facility] Influenza A B2 Note See Note [facility] Comment:The Kim ID NOW In fluenza A B2 test is used for thequalitative detection of influenza A and B from patientswith signs and symptoms of respiratory infection.Negative results do not preclude influenza virus infectionand should not be used as the sole basis for diagnosis,treatment or other patient management decisions.There is a risk of false negative results due to thepresence of variants in the viral targets of the assay, lowlevels of virus in the specimen and co- infection withRespiratory Syncytial Virus. 01/26/2025 11:3 8 AM EDT 01/26/2025 11:41 AM EDT us Generic External Data Provider LAB MICROBIOLOGY - GENERAL ORDERABLES Final Result [facility] [address] [place] [phone] * COVID-19 ID NOW (KIM) (01/26/2025 11:38 AM EDT) IDNOW SERIAL# [id number] [facility] COVID-19 TEST Negative Negative [facility] COVID-19 NOTE See Note [facility] Comment: Results are for the identification of SARS-CoV2 RNA. TheSARS-CoV2 RNA is generally detectable in respiratory samplesduring the acute phase of infection. Positive results areindicative of the presence of SARS-CoV-2 RNA; clinicalcorrelation with patient history and other diagnosticinformation is necessary to determine patient infectionstatus. Positive results do not rule out bacterial infectionor co- infection with other viruses.Testing facilities within the [facility] and itsterritories are required to report all positive results tothe appropriate public health authorities.Negative results should be treated as presumptive and, ifinconsistent with clinical signs and symptoms or necessaryfor patient management, should be tested with differentauthorized or cleared molecular tests. Negative results donot preclude SARS-CoV2 RNA infection and should not be usedas the sole basis for patient management decisions. Negativeresults should be considered in the context of a patient'srecent exposures, history and the presence of clinical signsand symptoms consistent with COVID-19.This test has been authorized by the FDA under an EmergencyUse Authorization (EUA) for use by authorized laboratories.Testing performed on the Chlorine Genie ID NOW utilizing NAAT. 01/26/2025 11:3 8 AM EDT 01/26/2025 11:41 AM EDT us Generic External Data Provider LAB MOLECULAR MOON GNOSTICS ORDERABLES Final Result [facility] [address] [place] [phone] * CT Cervical Spine w/o Contrast (01/26/2025 11:11 AM EDT) Anatomical Region Laterality Modality Spine, C-spine Computed Tomogra phy 01/26/2025 11:1 1 AM EDT Narrative 01/26/2025 11:51 AM EDT [address] [address] [address] Scan Report Signed Patient: Walt Rajan MR #: [id number] : 1955 Acct:[id number] Age/Sex: 69 / F ADM Date: 01/26/25 Loc: HO.ED Attending Dr: Ordering Physician: Molly Mata Date of Service: 01/26/25 Procedure(s): CT cervical spine wo IV con Accession Number(s): [id number] cc: Molly Mata; TOM TRUJILLO NP Report Number: [id number]: Total DLP = 277.00 mGy-cm Reason for Exam: swelling, pain EXAMINATION: CT CERVICAL SPINE WITHOUT CONTRAST CLINICAL INFORMATION: Swelling and pain COMPARISON: December 31, 2023. TECHNIQUE: Contiguous axial images through the cervical spine using 3 mm collimation with bone and soft tissue algorithm. Sagittal and coronal reformatted images acquired. This CT examination was performed using dose optimization techniques as appropriate, variously including the following: *Automated exposure control *Adjustment of mA and/or kV according to patient size (this includes techniques or standardized protocols for targeted exams where dose is matched to indication/reason for exam; i.e. extremities or head) *Use of iterative reconstruction technique. DLP: 277.35 mGy centimeter. FINDINGS: Craniocervical junction is intact with normal alignment between the occipital condyles and the lateral masses of C1. Partially calcified pannus formation, periodontal C1 region. Marginal osteophyte formation, endplate sclerosis subchondral cyst formation and decreased intervertebral disc height at C3-4, C4-5 and to a lesser extent C5-6 and C7-T1 levels. There is normal alignment between the vertebral bodies and the facet joints. C1 is intact. C2 is intact. C3 is intact. C4 is intact. C5 is intact. C6 is intact. C7 is intact. No prevertebral compartment hematoma. Calcified plaques in the carotid arteries. Punctate calcifications in the palatine tonsils. Tympanic cavities and mastoid cells are aerated. Calcified plaques in the cavernous and petrous segments both ICAs. Calcified plaques in the V3 segment right vertebral artery. Nodular not enlarged thyroid gland. Calcified plaques in the main branches of the thoracic aorta. CT/CT cervical spine wo IV con IMPRESSION: Multilevel cervical spondylosis C3-4, C4-5 and C5-6 without acute fracture or trauma-related listhesis. Fleischner guidelines were followed. Electronically signed by: Slim Gómez MD 01/26/2025 11:48 AM EDT RP Dictated By: Slim Torres MD Signed By: <Electronically signed by Slim Mendoza MD in OV> 01/26/25 1148 DD/ 1111 TD/TT: 01/26/25 1134 Is Analyst: Procedure Note Donotuseinterpreter, Image - 01/26/[address] [address] [address] Scan Report Signed Patient: Sid RajanR #: [id number] : 1955cct:[id number] Age/Sex: 69 / FADM Date: 01/26/25 Loc: HO.ED Attending Dr: Ordering Physician: Molly Mata Date of Service: 01/26/25 Procedure(s): CT cervical spine wo IV con Accession Number(s): [id number] cc: Molly Mata; TOM TRUJILLO NP Report Number: [id number]: Total DLP = 277.00 mGy-cm Reason for Exam: swelling, pain EXAMINATION: CT CERVICAL SPINE WITHOUT CONTRAST CLINICAL INFORMATION: Swelling and pain COMPARISON: December 31, 2023. TECHNIQUE: Contiguous axial images through the cervical spine using 3 mm collimation with bone and soft tissue algorithm. Sagittal and coronal reformatted images acquired. This CT examination was performed using dose optimization techniques as appropriate, variously including the following: *Automated exposure control *Adjustment of mA and/or kV according to patient size (this includes techniques or standardized protocols for targeted exams where dose is matched to indication/reason for exam; i.e. extremities or head) *Use of iterative reconstruction technique. DLP: 277.35 mGy centimeter. FINDINGS: Craniocervical junction is intact with normal alignment between the occipital condyles and the lateral masses of C1. Partially calcified pannus formation, periodontal C1 region. Marginal osteophyte formation, endplate sclerosis subchondral cyst formation and decreased intervertebral disc height at C3-4, C4-5 and to a lesser extent C5-6 and C7-T1 levels. There is normal alignment between the vertebral bodies and the facet joints. C1 is intact. C2 is intact. C3 is intact. C4 is intact. C5 is intact. C6 is intact. C7 is intact. No prevertebral compartment hematoma. Calcified plaques in the carotid arteries. Punctate calcifications in the palatine tonsils. Tympanic cavities and mastoid cells are aerated. Calcified plaques in the cavernous and petrous segments both ICAs. Calcified plaques in the V3 segment right vertebral artery. Nodular not enlarged thyroid gland. Calcified plaques in the main branches of the thoracic aorta. CT/CT cervical spine wo IV con IMPRESSION: Multilevel cervical spondylosis C3-4, C4-5 and C5-6 without acute fracture or trauma-related listhesis. Fleischner guidelines were followed. Electronically signed by: Slim Gómez MD 01/26/2025 11:48 AM EDT Dictated By: Slim Torres MD Signed By: <Electronically signed by Slim Mendoza MDin OV> 01/26/25 1148 DD/ 1111 TD/TT: 01/26/25 1134 Is Analyst: [facility] External Provider IMG CT PROCEDURES Edited Result - Final * CT Head w/o Contrast (01/26/2025 11:11 AM EDT) Anatomical Region Laterality Modality Head, Neck Computed Tomogra phy 01/26/2025 11:1 1 AM EDT Narrative 01/26/2025 11:44 AM EDT [place] [address] [address] Scan Report Signed Patient: Walt Rajan MR #: [id number] : 1955 Acct:[id number] Age/Sex: 69 / F ADM Date: 01/26/25 Loc: HO.ED Attending Dr: Ordering Physician: Molly Mata Date of Service: 01/26/25 Procedure(s): CT head/brain wo IV con Accession Number(s): [id number] cc: Molly Mata; TOM TRUJILLO NP Report Number: [id number]: Total DLP = 593.00 mGy-cm Reason for Exam: swelling, pain EXAMINATION: CT HEAD WITHOUT CONTRAST CLINICAL INFORMATION: swelling, pain COMPARISON: December 31, 2023 TECHNIQUE: Contiguous axial imaging was performed from the skull base to vertex without intravenous administration of contrast. This CT examination was performed using dose optimization techniques as appropriate, variously including the following: *Automated exposure control *Adjustment of mA and/or kV according to patient size (this includes techniques or standardized protocols for targeted exams where dose is matched to indication/reason for exam; i.e. extremities or head) *Use of iterative reconstruction technique DLP: 593 mGy-cm FINDINGS: Bilateral multifocal patchy and confluent subcortical deep white matter hypodensities involving centrum semiovale and faye radiata. No acute intracranial hemorrhage, mass effect, midline shift, hydrocephalus or herniation. Perez-white matter differentiation is normal. Posterior cranial fossa contents demonstrated normal position of the cerebellar tonsils. Sellar/suprasellar region demonstrated no gross masses. Calcified plaques in the V3/V4 segments right vertebral artery, basilar artery, cavernous supracavernous segments both ICAs. No acute fracture in the bony calvarium or the skull base. No air-fluid levels in the paranasal sinuses. For pneumatization of the frontal sinuses. Tympanic cavities and mastoid air cells are aerated. CT/CT head/brain wo IV con IMPRESSION: No acute intracranial hemorrhage. White matter disease likely related to small vessel occlusive disease. Atherosclerosis disease, intracranial. Electronically signed by: Slim Gómez MD 01/26/2025 11:39 AM EDT Dictated By: Slim Torres MD Signed By: <Electronically signed by Slim Mendoza MD in OV> 01/26/25 1139 DD/ 1111 TD/TT: 01/26/25 1134 Is Analyst: Procedure Note Donotuseinterpreter, Image - 01/26/[address] [address] [address] Scan Report Signed Patient: Alejandra RajanMichael #: [id number] : 1955cct:[id number] Age/Sex: 69 / FADM Date: 01/26/25 Loc: HO.ED Attending Dr: Ordering Physician: Molly Mata Date of Service: 01/26/25 Procedure(s): CT head/brain wo IV con Accession Number(s): [id number] cc: Molly Mata; TOM TRUJILLO NP Report Number: [id number]: Total DLP = 593.00 mGy-cm Reason for Exam: swelling, pain EXAMINATION: CT HEAD WITHOUT CONTRAST CLINICAL INFORMATION: swelling, pain COMPARISON: December 31, 2023 TECHNIQUE: Contiguous axial imaging was performed from the skull base to vertex without intravenous administration of contrast. This CT examination was performed using dose optimization techniques as appropriate, variously including the following: *Automated exposure control *Adjustment of mA and/or kV according to patient size (this includes techniques or standardized protocols for targeted exams where dose is matched to indication/reason for exam; i.e. extremities or head) *Use of iterative reconstruction technique DLP: 593 mGy-cm FINDINGS: Bilateral multifocal patchy and confluent subcortical deep white matter hypodensities involving centrum semiovale and faye radiata. No acute intracranial hemorrhage, mass effect, midline shift, hydrocephalus or herniation. Perez-white matter differentiation is normal. Posterior cranial fossa contents demonstrated normal position of the cerebellar tonsils. Sellar/suprasellar region demonstrated no gross masses. Calcified plaques in the V3/V4 segments right vertebral artery, basilar artery, cavernous supracavernous segments both ICAs. No acute fracture in the bony calvarium or the skull base. No air-fluid levels in the paranasal sinuses. For pneumatization of the frontal sinuses. Tympanic cavities and mastoid air cells are aerated. CT/CT head/brain wo IV con IMPRESSION: No acute intracranial hemorrhage. White matter disease likely related to small vessel occlusive disease. Atherosclerosis disease, intracranial. Electronically signed by: Slim Gómez MD 01/26/2025 11:39 AM EDT Dictated By: Slim Torres MD Signed By: <Electronically signed by Slim Mendoza MDin OV> 01/26/25 1139 DD/ 1111 TD/TT: 01/26/25 1134 Is Analyst: [facility] External Provider IMG CT PROCEDURES Edited Result - Final * XR CERVICAL SPINE 3V (01/18/2025 3:10 PM EDT) Anatomical Region Laterality Modality Abdomen Radiographic Dawn ging 01/18/2025 3:10 PM EDT Narrative 01/18/2025 3:25 PM EDT [facility] [address] [place] [address] XRay Report Signed Patient: Walt Rajan MR #: [id number] : 1955 Acct:[id number] Age/Sex: 69 / F ADM Date: 01/18/25 Loc: HO.HHCX Attending Dr: Marcela Crook MD Ordering Physician: Marcela Crook MD Date of Service: 01/18/25 Procedure(s): XR cervical spine 3V Accession Number(s): [id number] cc: TOM TRUJILLO STOPPER MAKER HELPER; Marcela Crook MD Reason for Exam: neck [...] OV> 01/18/25 1522 DD/ 1510 TD/TT: 01/18/25 151 Is Analyst: Procedure Note Donotuseinterpreter, Image - 01/18/[address] [address] XRay Report Signed Patient: Kenyon Rajan #: [id number] : 4Acct:[id number] Age/Sex: 69 / FADM Date: 01/18/25 Loc: HO.HHCX Attending Dr: Marcela Crook MD Ordering Physician: Marcela Crook MD Date of Service: 01/18/25 Procedure(s): XR cervical spine 3V Accession Number(s): [id number] cc: TOM TRUJILLO STOPPER MAKER HELPER; Marcela Crook MD Reason for Exam: neck [...] OV> 01/18/25 1522 DD/ 1510 TD/TT: 01/18/25 151 Is Analyst: Marcela Crook MD IMG XR PROCEDURES Edited Result - Final * TSH with Reflex to Free T4 (01/04/2025 1:20 PM EDT) TSH reflex Free T4 1.86 0.32 - 4.0 uIU/mL [facility] 01/04/2025 1:20 PM EDT 01/04/2025 4:05 PM EDT us Generic External Data Provider LAB BLOOD ORDERAB LES Final Result [facility] [address] [place] [phone] * (ABNORMAL) CBC auto differential (01/04/2025 1:20 PM EDT) Only the most recent of2 resultswithin the time period is included. Pathologist [facility] White Blood Count 4.9 4.8 - 10.8 X10*3/uL [facility] Red Blood Count 4.05(L) 4.20 - 5.50 X10*6/uL [facility] Hemoglobin 11.8(L) 12.0 - 16.0 g/dl [facility] Hematocrit 36.6(L) 37.0 - 47.0 % [facility] Mean Corpuscular Volume 90.4 80.0 - 98.0 fL [facility] Mean Corpuscular Hemoglobin 29.1 27.0 - 33.0 pg [facility] Mean Corpuscular HGB Conc 32.2 31.0 - 35.0 g/dl [facility] Red Cell Distribution Width 15.3 11.0 - 16.0 % [facility] Platelet Count 184 160 - 400 X10*3/uL [facility] Mean Platelet Volume 11.5 9.4 - 12.3 fL [facility] Neutrophils Percent Auto 67.0 45 - 73 % [facility] Imm Gran Pct Auto 0.2 0.0 - 0.4 % [facility] Lymphocytes Percent Auto 20.4 20 - 40 % [facility] Monocytes Percent Auto 10.0 2 - 11 % [facility] Eosinophils Percent Auto 2.0 0 - 4 % [facility] Basophils Percent Auto 0.4 0 - 2 % [facility] NRBC Pct Auto 0.0 0.0 - 0.2 /100WBC [facility] Neutrophils Absolute Auto 3.3 2.0 - 8.3 x10*3/uL [facility] Imm Gran Abs Auto 0.01 0.00 - 0.03 X10*3/uL [facility] Lymphocytes Absolute Auto 1.0(L) 1.2 - 4.9 X10*3/uL [facility] Monocytes Absolute Auto 0.5 0.1 - 1.2 X10*3/uL [facility] Eosinophils Absolute Auto 0.1 0.0 - 0.4 X10*3/uL [facility] Basophils Absolute Auto 0.0 0.0 - 0.2 X10*3/uL [facility] NRBC Abs Auto 0.000 0.0 - 0.012 X10*3/uL [facility] 01/04/2025 1:20 PM EDT 01/04/2025 4:05 PM EDT us Generic External Data Provider LAB BLOOD ORDERAB LES Final Result Performing Organization Address [facility]/ZIP Co de Phone Number [facility] [address] [place] [phone] * Hepatic Function Panel (01/04/2025 1:20 PM EDT) Only the most recent of2 resultswithin the time period is included. Bilirubin, Direct 0.3 0.0 - 0.5 mg/dL [facility] 01/04/2025 1:20 PM EDT 01/04/2025 4:05 PM EDT Generic External Data Provider LAB BLOOD ORDERAB LES Final Result Performing Organization Address [facility]/ZIP Co de Phone Number [facility] [address] [place] [phone] * (ABNORMAL) Lipid Panel, Standard (01/04/2025 1:20 PM EDT) Triglycerides 104 <150 mg/dL [facility] Comment:Desirable Triglyceri de: less than 150 mg/dLBorderline High Triglyceride 150-199 mg/dLHigh Triglyceride: 200-499 mg/dLVery High Triglyceride: greater than or equal to 5OO mg/dL Cholesterol 122 <200 mg/dL [facility] Comment:Desirable Cholestero l: less than 200 mg/dLBorderline High Cholesterol: 200-239 mg/dLHigh Cholesterol: greater than 239 mg/dL LDL Cholesterol Calculated 70 <100 mg/dL [facility] Comment:Desirable LDL: less than 100 mg/dLNear Optimal/Above Optimal LDL: 110- 129 mg/dLBorderline High LDL: 130-159 mg/dLHigh LDL: 160-189 mg/dLVery High LDL: greater than or equal to 190 mg/dL HDL Cholesterol 32(L) >40 mg/dL [facility] Comment:Desirable HDL: great er than 40 mg/dL Note: This HDL assay may give artificially low results in patients with liver disease. 01/04/2025 1:20 PM EDT 01/04/2025 4:05 PM EDT us Generic External Data Provider LAB BLOOD ORDERAB LES Final Result [facility] [address] [place], [place] [phone] * (ABNORMAL) Comprehensive Metabolic Panel (01/04/2025 1:20 PM EDT) Sodium 141 135 - 145 mmol/L [facility] Potassium 3.4 3.3 - 5.1 mmol/L [facility] Chloride 101 96 - 108 mmol/L [facility] Carbon Dioxide 30(H) 22 - 29 mmol/L [facility] Anion Gap 13 12 - 20 [facility] Urea Nitrogen (BUN) 13 9 - 16 mg/dL [facility] Creatinine, Serum 0.82 0.5 - 1.4 mg/dL [facility] Estimated Glomerular Filt Rate >60 [facility] Comment:Chronic Kidney Disea se: Estimated GFR < 60 mL/min/1.96m7Zymgcr Kidney Disease: Estimated GFR < 15 mL/min/1.73m2 Glucose 91 60 - 115 mg/dL [facility] Calcium 9.8 8.4 - 10.2 mg/dL [facility] Bilirubin, Total 0.8 0.0 - 1.0 mg/dL [facility] Aspartate Amino Transferase 38(H) 5 - 31 U/L [facility] Alanine Aminotransferase 28 0 - 31 U/L [facility] Total Protein 7.5 6.5 - 8.0 g/dL [facility] Albumin Level 3.7 3.5 - 5.0 g/dL [facility] Alkaline Phosphatase 64 39 - 117 U/L [facility] 01/04/2025 1:20 PM EDT 01/04/2025 4:05 PM EDT us Generic External Data Provider LAB BLOOD ORDERAB LES Final Result Performing Organization Address City/State/[facility] Co de Phone Number [facility] [address] [place] [phone] * CTA Chest PE Protocal (12/08/2024 2:57 PM EDT) Anatomical Region Laterality Modality Body, Chest Computed Tomogra phy 12/08/2024 2:57 PM EDT Narrative 12/08/2024 3:41 PM EDT [address] [address] [address] Scan Report Signed Patient: Walt Rajan MR #: [id number] : 1955 Acct:[id number] Age/Sex: 69 / F ADM Date: 12/08/24 Loc: .ED Attending Dr: Ordering Physician: Evan Keys Date of Service: 12/08/24 Procedure(s): CT angio chest PE protocol Accession Number(s): [id number] cc: Evan Keys; TOM TRUJILLO NP Report Number: [id number]: Total DLP = 187.00 mGy-cm EXAMINATION: CT [...] Mendoza MD in OV> 12/08/24 1539 DD/ 9787 TD/TT: 12/08/24 1531 Is Analyst: Procedure Note Donotuseinterpreter, Image - 12/08/[address] [address] [address] Scan Report Signed Patient: Kenyon Rajan #: [id number] : 4Acct:[id number] Age/Sex: 69 / FADM Date: 12/08/24 Loc: HO.ED Attending Dr: Ordering Physician: Evan Keys Date of Service: 12/08/24 Procedure(s): CT angio chest PE protocol Accession Number(s): [id number] cc: Evan Keys; TOM TRUJILLO NP Report Number: [id number]: Total DLP = 187.00 mGy-cm EXAMINATION: CT [...] 12/08/24 1539 DD/ 1457 TD/TT: 12/08/24 1531 Is Analyst: [facility] External Provider IMG CT PROCEDURES Final Result * High Sensitivity Troponin I (12/08/2024 11:52 AM EDT) TROPONIN I HIGH SENSITIVITY 8.5 <3.5 - 17.0 ng/L [facility] Comment:The Kim high sens itivity Troponin-I results should beused in conjunction with other diagnostic information suchas ECG, clinical observations and information, and patientsymptoms to aid in the diagnosis of ID. 12/08/2024 11:5 2 AM EDT 12/08/2024 11:55 AM EDT Generic External Data Provider LAB BLOOD ORDERAB LES Final Result [facility] [address] [place] [phone] * SARS-CoV-2 RNA, Influenza A/B, and RSV RNA, Ql NAAT (12/08/2024 11:52 AM EDT) Influenza A PCR NEGATIVE Negative [facility] Influenza B PCR NEGATIVE Negative [facility] Resp Syncy Virus RNA Qual PCR NEGATIVE Negative [facility] SARS COV2 PCR NEGATIVE Negative [facility] Comment:All test results mus t be [...] use by authorized laboratories.Testing performed on the [facility] GeneXpert utilizingreal-time RT-PCR.All SARS CoV2 and positive influenza A/B results arereported to [facility]. 12/08/2024 11:5 2 AM EDT 12/08/2024 11:55 AM EDT Generic External Data Provider LAB MICROBIOLOGY - GENERAL ORDERABLES Final Result Performing Organization Address [facility] Co de Phone Number [facility] [address] [place] [phone] * (ABNORMAL) Prothrombin Time-INR (12/08/2024 11:52 AM EDT) Prothrombin Time 23.4(H) 10.9 - 12.4 SEC [facility] INTERNATIONAL NORM RATIO 2.0(H) 0.9 - 1.1 [facility] [...] Final Result Performing Organization Address [facility] de Phone Number [facility] [address] [place] [phone] * B Type Natriuretic Peptide (BNP) (12/08/2024 11:52 AM EDT) B Type Natriuretic Peptide 58 <100 pg/mL [facility] 12/08/2024 11:5 2 AM EDT 12/08/2024 11:55 AM EDT us Generic External Data Provider LAB BLOOD ORDERAB LES Final Result [facility] [address] [place] [phone] * (ABNORMAL) Basic Metabolic Panel (12/08/2024 11:52 AM EDT) Pathologist [facility] Sodium 140 135 - 145 mmol/L [facility] Potassium 3.7 3.3 - 5.1 mmol/L [facility] Chloride 107 96 - 108 mmol/L [facility] Carbon Dioxide 26 22 - 29 mmol/L [facility] Anion Gap 11(L) 12 - 20 [facility] Urea Nitrogen (BUN) 18(H) 9 - 16 mg/dL [facility] Creatinine, Serum 1.00 0.5 - 1.4 mg/dL [facility] Creatinine Clr Calc Pharmacy 42.5 [facility] Comment:Provided height and weight: 149.86 cm,65.771 kg.eGFR (calculated from the MDRD study equation) and eCrCl(calculated from the Cockcroft-Gault equation) are based ondifferent parameters and may not yield comparable results.If eCrCl result is absurd, please check patient'sheight/weight. Estimated Glomerular Filt Rate 55 [facility] Comment:Chronic Kidney Disea se: Estimated GFR < 60 mL/min/1.57u3Jqtqel Kidney Disease: Estimated GFR < 15 mL/min/1.73m2 Glucose 117(H) 60 - 115 mg/dL [facility] Calcium 9.3 8.4 - 10.2 mg/dL [facility] 12/08/2024 11:5 2 AM EDT 12/08/2024 11:55 AM EDT us Generic External Data Provider LAB BLOOD ORDERAB LES Final Result [facility] [address] [place] [phone] * XR Chest 2 Views (12/08/2024 11:10 AM EDT) Anatomical Region Laterality Modality Chest Radiographic Dawn ging 12/08/2024 11:1 0 AM EDT Narrative 12/08/2024 12:17 PM EDT [address] [address] XRay Report Signed Patient: Walt Rajan MR #: [id number] : 1955 Acct:[id number] Age/Sex: 69 / F ADM Date: 12/08/24 Loc: HO.ED Attending Dr: Ordering Physician: Destinee Welch CNP Date of Service: 12/08/24 Procedure(s): XR chest 2V Accession Number(s): [id number] cc: Destinee Welch CNP; TOM TRUJILLO NP [...] 12/08/24 1214 DD/ 1110 TD/TT: 12/08/24 1208 Is Analyst: Procedure Note Donotuseinterpreter, Image - 12/08/[address] [address] XRay Report Signed Patient: Sid RajanR #: [id number] : 1955cct:[id number] Age/Sex: 69 / FADM Date: 12/08/24 Loc: HO.ED Attending Dr: Ordering Physician: Destinee Welch CNP Date of Service: 12/08/24 Procedure(s): XR chest 2V Accession Number(s): [id number] cc: Destinee Welch MAGNETIC TAPE COMPOSER OPERATOR; TOM TRUJILLO NP EXAMINATION: XR CHEST 2 [...] 12/08/24 1214 DD/ 1110 TD/TT: 12/08/24 1208 Is Analyst: [facility] External Provider IMG XR PROCEDURES Final Result * CT Chest w/ Contrast (11/18/2024 11:00 AM EDT) Anatomical Region Laterality Modality Body, Chest Computed Tomogra phy 11/18/2024 11:0 0 AM EDT Narrative 11/18/2024 11:33 AM EDT [facility] [address] [place] [address] CT Scan Report Signed Patient: Walt Rajan MR #: [id number] : 1955 Acct:[id number] Age/Sex: 69 / F ADM Date: 11/18/24 Loc: HO.CT Attending Dr: Darius Tamayo MD Ordering Physician: Darius Tamayo MD Date of Service: 11/18/24 Procedure(s): CT chest w IV con Accession Number(s): [id number] cc: Darius Tamayo MD; TOM TRUJILLO NP Report Number: [id number]: Total DLP = 104.00 mGy-cm EXAMINATION: CT [...] 11/18/24 1130 DD/ 1100 TD/TT: 11/18/24 1117 Is Analyst: Procedure Note Donotuseinterpreter, Image - 11/18/[address] [address] [address] Scan Report Signed Patient: Kenyon Rajan #: [id number] : 4Acct:[id number] Age/Sex: 69 / FADM Date: 11/18/24 Loc: HO.CT Attending Dr: Darius Tamayo MD Ordering Physician: Darius Tamayo MD Date of Service: 11/18/24 Procedure(s): CT chest w IV con Accession Number(s): [id number] cc: Darius Tamayo MD; TOM TRUJILLO NP Report Number: [id number]: Total DLP = 104.00 mGy-cm EXAMINATION: CT [...] 11/18/24 1130 DD/ 1100 TD/TT: 11/18/24 1117 Is Analyst: [facility] External Provider IMG CT PROCEDURES Final Result * XR Lumbar Spine 2-3 Views (11/18/2024 10:30 AM EDT) Anatomical Region Laterality Modality Spine, L-spine Radiographic Dawn ging 11/18/2024 10:3 0 AM EDT Narrative 11/18/2024 10:59 AM EDT [address] [address] XRay Report Signed Patient: Walt Rajan MR #: [id number] : 1955 Acct:[id number] Age/Sex: 69 / F ADM Date: 11/18/24 Loc: HO.CT Attending Dr: Darius Tamayo MD Ordering Physician: TOM TRUJILLO NP Date of Service: 11/18/24 Procedure(s): XR lumbar spine 2-3V Accession Number(s): [id number] cc: TOM TRUJILLO NP EXAMINATION: XR LUMBOSACRAL SPINE CLINICAL INFORMATION: Slip [...] 11/18/24 1056 DD/ 1030 TD/TT: 11/18/24 1034 Is Analyst: Procedure Note Donotuseinterpreter, Image - 11/18/[address] [address] XRay Report Signed Patient: Kenyon Rajan #: [id number] : 4Acct:[id number] Age/Sex: 69 / FADM Date: 11/18/24 Loc: HO.CT Attending Dr: Darius Tamayo MD Ordering Physician: TOM TRUJILLO NP Date of Service: 11/18/24 Procedure(s): XR lumbar spine 2-3V Accession Number(s): [id number] cc: TOM TRUJILLO NP EXAMINATION: XR LUMBOSACRAL SPINE CLINICAL INFORMATION: Slip [...] Slim Gómez MD 11/18/2024 10:56 AM EDT Dictated By: Slim Torres MD Signed By: <Electronically signed by Slim Mendoza MDin OV> 11/18/24 1056 DD/ 1030 TD/TT: 11/18/24 1034 Is Analyst: Tom WEI IMG XR PROCEDURES Final Result * BI Mammogram Screening Tomosynthesis Bilateral (10/26/2024 1:20 PM EDT) Anatomical Region Laterality Modality Breast Bilateral Mammography 10/26/2024 1:20 PM EDT Narrative 11/01/2024 2:28 PM EDT [facility] [address] [place] [address] Mammography Report Signed Patient: Walt Rajan MR #: [id number] : 1955 Acct:[id number] Age/Sex: 69 / F ADM Date: 10/26/24 Loc: JEFFY.PASQUALEO Attending Dr: Tom Trujillo NP Ordering Physician: TOM TRUJILLO NP Results: 1Negative Date of Service: 10/26/24 Follow Up: 1 Year From Orig inal Mammogram Procedure(s): MM tomosynthesis screening BI Accession Number(s): [id number] cc: TOM TRUJILLO NP EXAMINATION: MM SCREENING [...] Glenna Sierra DO 11/01/2024 02:25 PM EDT RP Dictated By: Glenna Sierra DO Signed By: <Electronically signed by Glenna Sierra DO in OV> 11/01/24 1425 DD/ 1320 TD/TT: 10/26/24 1338 Is Analyst: Procedure Note Donotuseinterpreter, Image - 11/01/2024 [facility] [address] [place] [address] Mammography Report Signed Patient: Aleida RajanR #: [id number] : 4Acct:[id number] Age/Sex: 69 / FADM Date: 10/26/24 Loc: LEE Attending Dr: Tom Trujillo NP Ordering Physician: TOM TRUJILLO NPResults: 1Negative Date of Service: 10/26/24Follow Up: 1 Year From Orig inal Mammogram Procedure(s): MM tomosynthesis screening BI Accession Number(s): [id number] cc: TOM TRUJILLO NP EXAMINATION: MM SCREENING [...] 11/01/24 1425 DD/ 1320 TD/TT: 10/26/24 1338 Is Analyst: Tom Trujillo ANP IMG BI PROCEDURES Edited Result - Final * Hm Colonoscopy (10/10/2021) Colonoscopy Normal Normal Historical Provider HEALTH MAINTENANCE Final Result from Last 3 Months or Most Recently Relevant to Health Maintenance Insurance [facility] Care Teams Medical Insurance Claims Processor Relationship Specialty Start Date End Date Tom Trujillo ANP [address] [place] [address] PCP - General Family Medicine 09/29/19 Everett Rojas MD [address] [place] [address] 3rd Floor [place], [place] Cardiology 04/21/24
--- OUTSIDE RECORDS SUMMARY | 2025-01-26 12:49 | XMS_ITS | Encounter Summary ---
Author Organization [employer] Address [address] [place] [address] 7t [place] [address] Care Team Providers Care Foundation Maker Name Role Phone Sudha Mitchell Primary Care Provider [phone] Everett Rojas MD Unavailable Reason for Visit * Reason Comments Med Refill Encounter Details Date Type Department Care Team (Late st Contact Info) Description 08/14/2022 Refill [facility] MEDICINE [address] [place] [address] [facility] [address] [place] [address] Lumbago of lumbar region with sciatica Social [...] Description 02/09/2025 11:00 AM EDT Clinical Support [facility] MED & PEDS [address] [place] [address] Nichole Lucio, RN [address] [place] [address] 03/22/2025 2:00 PM EST Office Visit [facility] MEDICINE [address] [place] [address] Sudha Mitchell ANP [address] [place] [address] documented as of this encounter Visit Diagnoses Diagnosis Lumbago of lumbar region with sciatica documented in this encounter Care Teams Foundation Maker Relationship Specialty Start Date End Date Sudha Mitchell ANP [address] [place] [address] PCP - General Family Medicine 09/29/19 Everett Rojas MD [address] [place] [address] 3rd [place] [address] Cardiology 04/21/24 documented as of this encounter
--- OUTSIDE RECORDS SUMMARY | 2025-01-26 12:49 | XMS_ITS | Encounter Summary ---
Author Organization [employer] Address [address] [place] [address] 7t [place] [address] Care Team Providers Care Environmental Projects Advisor Name Role Phone Sudha Mitchell Primary Care Provider [phone] Everett Rojas MD Unavailable [phone] Reason for Visit * Reason Comments Med Refill Encounter Details Date Type Department Care Team (Late st Contact Info) Description 05/02/2022 Refill [facility] MED & PEDS [address] [place] [address] Sudha Mitchell ANP [address] [place] [address] Cervicalgia Social History Tobacco Use Types Packs/Day [...] Description 02/09/2025 11:00 AM EDT Clinical Support [facility] CHC MED & PEDS [address] [place] [address] Nichole Lucio, MONAE [address] [place], [place] 03/22/2025 2:00 PM EST Office Visit [facility] MEDICINE [address] [place] [address] Sudha Mitchell ANP [address] [place] [address] documented as of this encounter Visit Diagnoses Diagnosis Cervicalgia documented in this encounter Care Teams Environmental Projects Advisor Relationship Specialty Start Date End Date Sudha Mitchell ANP [address] [place] [address] PCP - General Family Medicine 09/29/19 Everett Rojas MD [address] [place] [address] 3rd [place] [address] Cardiology 04/21/24 documented as of this encounter
--- OUTSIDE RECORDS SUMMARY | 2025-01-26 12:49 | XMS_ITS | Encounter Summary ---
Author Organization [facility] Address [address] [place] [address] Care Team Providers Care Diesel Bus Mechanic Name Role Phone Darius Tamayo MD Primary Care Provider [phone] Encounter Details Date Type Department Care Team (Late st Contact Info) Description 12/22/2024 Education [facility] Transplant Department [address] [place] [address] Sabrina Dahl RN Social History Tobacco Use [...] Description 02/12/2025 11:00 AM EDT Office Visit [facility] Building 4th floor Cardiology Medicine [address] [place] [address] 3D Animator: James Reynoso MD [address] [place] [address] 03/18/2025 2:00 PM EST Follow-Up [facility] Liver Transplant Services [address] [place] [address] Lauren Hancock MD [address] [place] [address] documented as of this encounter Visit Diagnoses Not on filedocumented in this encounter Care Teams Diesel Bus Mechanic Relationship Specialty Start Date End Date Darius Tamayo MD [address] [place] [address] PCP - General Gastroenterology 12/22/24 documented as of this encounter
--- OUTSIDE RECORDS SUMMARY | 2025-01-26 12:49 | XMS_ITS | Encounter Summary ---
Author Organization [employer] Address [address] [facility] [address] 7t [place] [address] Care Team Providers Care Dye Room Helper Name Role Phone Sudha Mitchell Primary Care Provider [phone] Everett Rojas MD Unavailable [phone] Reason for Visit * Reason Comments Med Refill Encounter Details Date Type Department Care Team ([facility] st Contact Info) Description 03/23/2024 Refill [facility] MED [facility] PEDS [address] [place] [address] Sudha Mitchell ANP [address] [place] [address] Lumbago of lumbar region with sciatica Social [...] [facility] MED & PEDS [address] [place] [address] Nichole Lucio, MONAE [address] [place] [address] 03/22/2025 2:00 PM EST Office Visit [facility] MEDICINE [address] [place] [address] Sudha Mitchell ANP [address] [place] [address] documented as of this encounter Visit Diagnoses Diagnosis Lumbago of lumbar region with sciatica documented in this encounter Care Teams Dye Room Helper Relationship Specialty Start Date End Date Sudha Mitchell ANP [address] [place] [phone] PCP - General Family Medicine 09/29/19 Everett Rojas MD [address] 3rd [place] [address] Cardiology 04/21/24 documented as of this encounter
--- OUTSIDE RECORDS SUMMARY | 2025-01-26 12:49 | XMS_ITS | Encounter Summary ---
Author Organization [employer] Address [address] [place] [address] 7t [place] [address] Care Team Providers Care Critical Care Nurse Practitioner Name Role Phone Sudha Mitchell Primary Care Provider [phone] Everett Rojas MD Unavailable [phone] Reason for Visit * Reason Comments Med Refill Encounter Details Date Type Department Care Team (Late st Contact Info) Description 01/22/2023 Refill [facility] MEDICINE [address] [place] [address] Sudha Mitchell ANP [address] [place] [address] Lumbago of lumbar region with sciatica Social [...] Description 02/09/2025 11:00 AM EDT Clinical Support [facility] CHC MED & PEDS [address] [place] [address] Nichole Lucio, RN [address] [place] [address] 03/22/2025 2:00 PM EST Office Visit [facility] MEDICINE [address] [place] [address] Sudha Mitchell ANP [address] [place] [address] documented as of this encounter Visit Diagnoses Diagnosis Lumbago of lumbar region with sciatica documented in this encounter Care Teams Critical Care Nurse Practitioner Relationship Specialty Start Date End Date Sudha Mitchell ANP [address] [place] [address] PCP - General Family Medicine 09/29/19 Everett Rojas MD [address] [place] [address] 3rd [place] [address] Cardiology 04/21/24 documented as of this encounter
--- OUTSIDE RECORDS SUMMARY | 2025-01-26 12:49 | XMS_ITS | Encounter Summary ---
Author Organization [employer] Address [address] [place] [address] 7t [place] [address] Care Team Providers Care Sterile Processing Manager Name Role Phone Stephen Sudha WEI Primary Care Provider [phone] Everett Rojas MD Unavailable [phone] Reason for Visit * Reason Comments Med Refill Encounter Details Date Type Department Care Team ([facility] st Contact Info) Description 12/30/2023 Refill [facility] MEDICINE [address] [place] [address] Fabi Boudreaux MD [address] [place] [address] Lumbago of lumbar region with sciatica Social [...] Description 02/09/2025 11:00 AM EDT Clinical Support [facility] CHC MED & PEDS [address] [place] [address] Nichole Lucio, MONAE [address] [place] [address] 03/22/2025 2:00 PM EST Office Visit [facility] MEDICINE [address] [place] [address] Sudha Mitchell ANP [address] [place] [address] documented as of this encounter Visit Diagnoses Diagnosis Lumbago of lumbar region with sciatica documented in this encounter Care Teams Sterile Processing Manager Relationship Specialty Start Date End Date Sudha Mitchell ANP [address] [place] [address] PCP - General Family Medicine 09/29/19 Everett Rojas MD [address] [place] [address] 3rd [place] [address] Cardiology 04/21/24 documented as of this encounter
--- OUTSIDE RECORDS SUMMARY | 2025-01-26 12:49 | XMS_ITS ---
Author Organization [facility] Address [address] [place] [address] Care Team Providers Care Road Passenger Firer Name Role Phone Darius Tamayo MD Primary Care Provider [phone] Transplant Episode Liver Candidate [facility] ([place], [place]) - [facility] Evaluation began on 12/22/2024 Marked as Active on 12/22/2024 Reason: Workup Liver CoordinatorSabrina Dahl RN Phone: N/A Fax: N/A Email: N/A Scores Score Value Updated Expires Exceptions/Jeannie sons CPRA Not available MELD (Calc) 9 12/22/2024 [place] Organ Diagnosis Organ Primary Contributory Liver Primary Liver Malign kary: Hepatoma (HCC) and Cirrhosis 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
--- OUTSIDE RECORDS SUMMARY | 2025-01-26 12:49 | XMS_ITS | Clinical Summary ---
Author Organization [facility] Address [address] [place] [address] Care Team Providers Care Or Manager Name Role Phone Darius Tamayo MD Primary Care Provider [phone] Allergies Active Allergy Reactions Criticality Noted Date Comments Rivaroxaban GI bleeding High 03/28/2020 GIB Shellfish Derived Anaphylaxis High 03/12/2023 Patient reported Medications calcium carbonate-armando min D3 600 mg-10 mcg (400 unit) per tablet Take 2 tablets by mouth 2 times a day. 09/11/19 25 Active Eliquis 5 mg tablet Take 5 mg by mouth every 12 hours. 10/08/19 25 Active cholecalcifero l (VITAMIN D3) 25 mcg (1,000 unit) tablet Take 1,000 Units by mouth once a day. 09/11/19 25 Active hydroCHLOROthi azide (HYDRODIURIL) 25 mg tablet 25 mg once a day. 10/08/19 25 Active metoprolol tartrate (LOPRESSOR) 50 mg tablet Take 50 mg by mouth 2 times a day. 05/19/19 25 Active montelukast (SINGULAIR) 10 mg tablet Take 10 mg by mouth at bed time. at bedtime. 08/05/19 25 Active traMADoL (ULTRAM) 50 mg tablet Take 50 mg by mouth every 12 hours as needed for pain. 11/07/19 25 Active lidocaine (LIDODERM) 5% patch Apply 1 patch topically to the affected area daily. 01/02/20 24 Active MOMETASONE FUROATE, BULK, MISC 2 Inhalations as needed. Active vitamin A 3,000 mcg (10,000 unit) capsule Take 1 capsule (10,000 Units total) by mouth once a day. 30 capsule 2 12/26/19 25 025 Active atorvastatin (LIPITOR) 20 mg tablet Take 1 tablet (20 mg total) by mouth once a day. 30 tablet 11 12/26/19 25 026 Active zinc sulfate (ZINCATE) 50 mg zinc (220 mg) capsule Take 1 capsule (50 mg of elemental zinc total) by mouth once a day. 30 capsule 12/26/19 25 025 Discontinued Encounters Date Type Department Care Team Description 01/22/2025 Refill [facility] Transplant Services [address] [place] [address] 15063 Lauren Hancock MD 01/20/2025 Refill [facility] [address] [place] [address] 82945 Lauren Hancock MD 01/18/2025 Telephone [facility] Transplant Department [address] [place] [address] [phone] Sabrina Dahl RN Care Coordination 01/15/2025 3:15 PM EDT Office Visit [facility] [address] [place] [address] 64761 Nikko Pagan MD 01/15/2025 2:30 PM EDT Office Visit [facility] [address] [place] [address] [phone] Shaila Posey MD Encounter for pre-transplant evaluation for chronic liver disease (Primary Dx); Metabolic dysfunction-associate d steatohepatitis (MASH); Hepatocellular carcinoma (HCC); Chronic hepatitis C without hepatic coma (HCC); Screening examination for infectious disease; Positive CMV IgG serology; EBV seropositivity; Immune to hepatitis B; Immune to hepatitis A 01/15/2025 1:45 PM EDT Nutrition [facility] [address] [place] [address] Encounter for pre-transplant evaluation for liver transplant (Primary Dx) 01/15/2025 1:00 PM EDT Office Visit [facility] [address] [place] [address] Mihai Blank MD Encounter for pre-transplant evaluation for chronic liver disease (Primary Dx) 01/15/2025 12:15 PM EDT Social Work [facility] [address] [place] [address] Sandra Mcgregor [facility] 01/15/2025 11:45 AM EDT Office Visit [facility]plant [facility] [address] [place] [address] Da Robb, MONAE Encounter for pre-transplant evaluation for liver transplant 01/15/2025 10:30 AM EDT - 01/15/2025 11:59 PM EDT Hospital Encounter [facility] ACC Building Cardiac Ultrasound [address] [place] [address] Encounter for pre-transplant evaluation for liver transplant Discharge Disposition: Home or Self Care (01) 01/15/2025 Orders Only [facility] Transplant Department [address] [place] [address] 38541 Sabrina Dahl RN Encounter for pre-transplant evaluation for liver transplant (Primary Dx) 01/07/2025 Orders Only [facility] Transplant Department [address] [place] [address] Nanette Bowen, MONAE Encounter for pre-transplant evaluation for liver transplant (Primary Dx); Pre-procedural cardiovascular examination; Mild CAD; Coronary artery calcification seen on CT scan 01/07/2025 Results Follow-Up [facility] G[facility]enterology [facility] [address] [place] [address] Business Enterprise Officer: Lauren Hernandez MD 01/06/2025 12:18 PM EDT - 01/06/2025 11:59 PM EDT Hospital Encounter [address] [address] Lauren Hancock MD Encounter for pre-transplant evaluation for liver transplant; Metabolic dysfunction-associate d steatohepatitis (MASH) Discharge Disposition: Home or Self Care (01) 12/25/2024 Results Follow-Up [facility]plant [facility] [address] [place] [address] Sabrina Dahl RN 12/22/2024 1:00 PM EDT Office Visit [facility] [address] [place] [phone] Lauren Hancock MD Hepatocellular carcinoma (HCC) (Primary Dx); Metabolic dysfunction-associate d steatohepatitis (MASH); Chronic hepatitis C without hepatic coma (HCC); 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) 12/22/2024 12:00 PM EDT Evaluation [facility] [address] [place] [address] 27510 Sabrina Dahl RN Encounter for pre-transplant evaluation for liver transplant (Primary Dx) 12/22/2024 Education [facility] Transplant Department [address] [place] [address] 87163 Sabrina Dahl RN 12/22/2024 Orders Only [facility] Transplant Department [address] [place] [address] 18493 Sabrina Dahl, RN Encounter for pre-transplant evaluation for liver transplant (Primary Dx); Metabolic dysfunction-associate d steatohepatitis (MASH) 12/22/2024 Orders Only [facility] Transplant Department [address] [place] [address]96[address] Sabrina Dahl, RN Encounter for pre-transplant evaluation for liver transplant (Primary Dx) 12/02/2024 Telephone [facility] Transplant Department [address] [place] [address] Sabrina Dahl RN 12/02/2024 Orders Only [facility] Transplant Department [address] [place] [address] [phone] ProviderCem MD 12/01/2024 Orders Only [facility] Transplant Department [address] [place] [address] Provider, MD Cem from Last 3 Months [...] Description 02/12/2025 11:00 AM EDT Office Visit [facility] Building 4th floor Cardiology Medicine [address] [place] [address] Business Enterprise Officer: James Reynoso MD [address] [place] [address] 03/18/2025 2:00 PM EST Follow-Up [facility] Liver Transplant Services [address] [place] [address] Lauren Hancock MD [address] [place] [address] Health Maintenance Due Date Last Done Comments [...] Use Screening Completed Procedures * Due to [place] state law, this organization might not be sharing negative HIV tests. Procedure Name Priority Date/Time Associated Diagnosis Comments ECG 12-LEAD Routine 01/15/2025 1:32 PM EDT Encounter for pre-transplant evaluation for liver transplant TRANSTHORACIC ECHO (TTE) COMPLETE Routine 01/15/2025 11:47 [...] Encounter for pre-transplant evaluation for liver transplant FUKQM-7-ZWFHYPJXIFP (AAT) PHENOTYPE Routine 12/22/2024 2:14 PM EDT Encounter for pre-transplant evaluation for liver transplant HEPATOCELLULAR CARCINOMA PANEL -[id number] Routine 12/22/2024 2:14 PM EDT Encounter for pre-transplant evaluation for liver transplant STEPHON SCREEN, IFA, W/REFLEX TO TITER & PATTERN Routine 12/22/2024 2:14 PM EDT Encounter for pre-transplant evaluation for liver transplant BILIRUBIN, DIRECT Routine 12/22/2024 2:1 4 PM EDT Encounter for pre-transplant evaluation for liver transplant CYSTATIN C WITH GLOMERULAR FILTRATION RATE, ESTIMATED (EGFR)-[id number] Routine 12/22/2024 2:14 PM EDT Encounter for [...] for pre-transplant evaluation for liver transplant PHOSPHATIDYLETHANOL-AR [id number] Routine 12/22/2024 2:14 PM EDT Encounter for [...] for liver transplant QUANTIFERON-TB GOLD PLUS, 1 [id number] Routine 12/22/2024 2:14 PM EDT Encounter for pre-transplant evaluation for liver transplant HIV-1/2 ANTIGEN/ANTIBODIES 4TH GENERATION W/REFLEX Routine 12/22/2024 2:14 PM EDT Encounter for pre-transplant evaluation for liver transplant RPR (DIAGNOSIS) W/REFLEX TO TITER & TPPA [id number] Routine 12/22/2024 2:14 PM EDT Encounter for [...] for pre-transplant evaluation for liver transplant ZINC, PLASMA/CDZNP-[id number] Routine 12/22/2024 2:14 PM EDT Encounter for pre-transplant evaluation for liver transplant IMAGING - SCANNED Routine 11/19/2024 4:5 0 PM EDT from Last 3 Months Results * Due to [place] state law, this organization might not be sharing negative HIV tests. * ECG 12 lead (01/15/2025 1:32 PM EDT) Ventricular Rate EKG 55 BPM MUSE EKG Atrial Rate 55 BPM MUSE EKG NH Interval 152 ms MUSE EKG QRS Interval 92 ms MUSE EKG QT Interval 432 ms MUSE EKG QTC Interval 413 ms MUSE EKG P Torrance 51 degrees MUSE EKG R [place] 21 degrees MUSE EKG T Wave [place] 1 degrees MUSE EKG 01/15/2025 1:32 PM EDT 01/19/2025 10:59 PM EDT Impressions MUSE EKG - 01/19/2025 10:59 PM EDT POOR DATA QUALITY, INTERPRETATION MAY BE ADVERSELY AFFECTED SINUS BRADYCARDIA with pvcs and fusion complexes OTHERWISE NORMAL ECG NO PREVIOUS ECGS AVAILABLE Confirmed by Oswaldo Landa ([id number]) on 01/19/2025 10:59:21 PM Narrative Procedure Note Oswaldo Landa MD - 01/19/2025 IMPRESSION: POOR DATA QUALITY, INTERPRETATION MAY BE ADVERSELY AFFECTED SINUS BRADYCARDIA with pvcs and fusion complexes OTHERWISE NORMAL ECG NO PREVIOUS ECGS AVAILABLE Confirmed by Oswaldo Landa ([id number]) on 01/19/2025 10:59:21 PM Lauren Hancock MD ECG ORDERABLES Final Re sult MUSE EKG * TRANSTHORACIC ECHO (TTE) COMPLETE (01/15/2025 11:47 [...] Doppler. Myocardial deformation imaging was performed using [employer]. During the study the apical, parasternal, subcostal [...] cancer. For comments and reference, please see [https://doi.org/10.1148/radiol.7841753566]. For information about nodule measurements and reporting, please see [https://pubs.rsna.org/doi/10.1148/radiol.6802419992]. I, Mike Riley, have reviewed the examination and concur with the findings as reported or so edited. Trainee: Kojo Nevarez If this radiology report contains a blank impression section, it is an incomplete radiology report. Please contact the interpreting radiologist or applicable radiology division as soon as possible to obtain the completed interpretation. Workstation ID: [id number] Narrative 01/07/2025 5:[address] CARDIAC [...] will not be ordered. Resulting Agency Comment [id number] Procedure Note Mike Riley MD - 01/07/2025 CT CARDIAC CORONARY AND CALCIUM SCORING, CT LIMITED FOLLOW UP [facility] Indication: CAD screening, intermediate CAD risk, not treadmill opatdqwgvG75.818 - I10 - Encounter for other preprocedural [...] lung cancer. For comments and reference, please see[https://doi.org/10.1148/radiol.7831568382]. For information about nodulemeasurements and reporting, please see[https://pubs.rsna.org/doi/10.1148/radiol.5740747957]. IMike, have reviewed the examination and concur with thefindings as reported or so edited. Trainee: Kojo Nevarez If this radiology report contains a blank impression section, it is anincomplete radiology report. Please contact the interpreting radiologistor applicable radiology division as soon as possible to obtain thecompleted interpretation. Workstation ID: [id number] Lauren Hancock MD IMG CT PROCEDURES Final Result * CT Limited [...] cancer. For comments and reference, please see [https://doi.org/10.1148/radiol.6553859882]. For information about nodule measurements and reporting, please see [https://pubs.rsna.org/doi/10.1148/radiol.9433168484]. IMike, have reviewed the examination and concur with the findings as reported or so edited. Trainee: Kojo Nevarez If this radiology report contains a blank impression section, it is an incomplete radiology report. Please contact the interpreting radiologist or applicable radiology division as soon as possible to obtain the completed interpretation. Workstation ID: [id number] Narrative 01/07/2025 5:[address] CARDIAC [...] will not be ordered. Resulting Agency Comment [id number] Procedure Note Mike Riley MD - 01/07/2025 CT CARDIAC CORONARY AND CALCIUM SCORING, CT LIMITED FOLLOW UP [facility] Indication: CAD screening, intermediate CAD risk, not treadmill uicnelxkbE29.818 - I10 - Encounter for other preprocedural [...] lung cancer. For comments and reference, please see[https://doi.org/10.1148/radiol.1984665514]. For information about nodulemeasurements and reporting, please see[https://pubs.rsna.org/doi/10.1148/radiol.9373197844]. I, Mike Riley, have reviewed the examination and concur with thefindings as reported or so edited. Trainee: Kojo Nevarez If this radiology report contains a blank impression section, it is anincomplete radiology report. Please contact the interpreting radiologistor applicable radiology division as soon as possible to obtain thecompleted interpretation. Workstation ID: [id number] us Lauren Hancock MD IMG CT PROCEDURES Final Result * Comprehensive Drug Panel, Urine (12/22/2024 2:34 PM EDT) [facility] Comprehensive Drug Screen Urine DRUGS DETECTED 12/22/2024 9:16 PM EDT everyArt [facility] Comment: CAFFEINE METOPROLOL Urine Voided urine specimen / Unknown Non-Blood Collection / Unknown 12/22/2024 2:34 PM EDT 12/22/2024 2:42 PM EDT Narrative [facility] - 12/22/2024 9:16 PM EDT [facility] Received Date:[id number] us Lauren Hancock MD LAB URINE ORDERABLES Fin al Result [facility] [address] [facility] [address]rd [address], [place] [address], [place] [phone] [email or web address] [facility] [address] [facility] [address]rd [address], [place] [address], [place] [phone] * (ABNORMAL) Cystatin C with Glomerular Filtration Rate, Estimated (eGFR) (12/22/2024 2:14 PM EDT) Cystatin C 1.58(H) 0.52 - 1.10 mg/L 12/24/2024 12:17 PM EDT [facility] ([place]) eGFR Non- 38(L) >=60 NA 12/24/2024 12:17 PM EDT [facility] ([place]) Comment: REFERENCE RANGE:>=60 mL/min/1.73mE2 Blood Structure of peripheral vein / Unknown Venipuncture / Unknown 12/22/2024 2:14 PM EDT 12/22/2024 2:53 PM EDT Narrative [facility] ([place]) - 12/24/2024 12:17 PM EDT [facility] Received Date: Lauren Hancock MD LAB BLOOD ORDERABLES Fin al Result [facility] [place]) [address] [place] [address], [place] * (ABNORMAL) Hepatocellular Carcinoma Panel (Includes AFP, AFP-L3 & DCP) (12/22/2024 2:14 PM EDT) Pathologist [facility] AFP 31.3(H) 1.6 - 4.5 ng/mL 12/29/2024 6:23 PM EDT [facility] AFP-L3 3.9 0.5 - 9.9 % 12/29/2024 6:23 PM EDT [facility] Comment: The micro-total analysis system ([employer]) employs microchip capillary electrophoresis to quantitatively measure AFP and AFP-L3% by immunochemical techniques. The assay principle involves DNA-coupled antibodies and dye labeled antibodies, which react with proteins in liquid phase within the microchannels. Both analytes are quantified using laser-induced fluorescence. Instrument and associated reagents are supplied by [employer] [place], [place], [place]. Patients with elevated AFP-L3% values (>=10%) [...] can potentially cause an anomalous result. The Bio[employer] System has been formulated to minimize the [...] or kits cannot be used interchangeably. DCP (Ahk-Rjkut-Fkxgpvq- Prothrombin) 0.2 <7.5 ng/mL 12/29/2024 6:23 PM EDT [facility] Comment: [facility] DCP Immunological Test System is a clinical device used to quantitatively measure, by immunochemical technique, iva-slcyj-jzohxwf-prothrombin (DCP) in serum. The assay uses DNA-coupled antibodies and dye labeled antibodies, which react with proteins in liquid phase within the microchannels. Both analytes are quantified using laser-induced fluorescence. Instrument and associated reagents are supplied by [employer] [place], [place], [place]. DCP levels increase in patients with [...] interference potentially causing an anomalous result. The [facility] DCP has been formulated to [...] 2:14 PM EDT 12/22/2024 2:52 PM EDT [facility] 12/29/2024 6:23 PM EDT [facility] Received Date: us Lauren Hancock MD LAB BLOOD ORDERABLES Fin al Result [facility] [address] [facility] 3rd [address], [place] [address], [place] [phone] [facility] [facility] [address] [place] [address], [place] [phone] * Phosphatidylethanol (PEth) (12/22/2024 2:14 PM EDT) [...] LABORATORY Comment: Authorized individuals can access the [employer] Enhanced Report with an [employer] Connect account using the following link. Your local lab can assist you in obtaining the patient report if you don't have a Connect account. [email or web address] PEth Interpretation See Comment 12/11 2:50 PM [...] developed and its performance characteristics determined by [employer] It has not been cleared or approved by the U.S. Food and Drug Administration. This test was performed in a CLIA-certified laboratory and is intended for clinical purposes. Performed By: [employer] [address] [id number] Backrest Assembler: Dennis Landry MD, PhD CLIA Number: [id number] Blood Structure of peripheral vein / Unknown Venipuncture / Unknown 12/22/2024 2:14 PM EDT 12/22/2024 2:51 PM EDT Lauren Hancock MD LAB BLOOD ORDERABLES Fin al Result [facility] [address] [place] [address], * Jqceu-8-Vmelgwbtues (AAT) Phenotype (12/22/2024 2:14 PM EDT) Alpha 1 Antitrypsin Phenotype SEE NOTE 12/28/2024 6:17 PM EDT [facility] Comment: THIS PATIENT'S BBKCJ-1-GWOAGLASDIH PHENOTYPE IS PI*MM. 90% of normal individuals have the MM phenotype, with normal quantitative AAT levels. Many phenotypic patterns have been described, including deficiency states with F, S, Z, or other alleles. As a general estimation, compared to M allele of 100% of normal I-6-Sijklkpgkgk protein, the S allele produces approximately 60% and the Z allele 20%. For example, an MS phenotype would have about 80% of normal H-1-Bmgrblrllxp protein level, a 50% contribution from the M allele and 30% from the S allele. A ZZ phenotype would have about 20% of normal levels, a 10% contribution from each Z gene. The F allele has normal U-1-Tryoijatpol levels, but the kinetics of elastase inhibition [...] PM EDT 12/22/2024 2:51 PM EDT Narrative [facility] - 12/28/2024 6:17 PM EDT [facility] Received Date: Lauren Hancock MD LAB BLOOD ORDERABLES Fin al Result [facility] [place] [address] [facility] 3rd Floor, [place] [address], [place] [phone] [email or web address] [address] [place] [address], [place] [phone] * MMR Panel, IgG (12/22/2024 2:14 PM EDT) [facility] Measles Antibody (IgG), Immune Status >300.00 AU/mL 12/23/2024 5:57 AM EDT [email or web address] [facility] Comment: AU/mL Interpretation ----- <13.50 Not consistent with immunity 13.50-16.49 Equivocal >16.49 Consistent with immunity The presence of measles IgG suggests immunization or past or current infection with measles virus. For additional information, please refer to http://education.Ara [employer].HealPay/faq/SQQ435 (This link is being provided for informational/ educational purposes only.) Mumps Antibody (IgG), Immune Status >300.00 AU/mL 12/23/2024 5:57 AM EDT everyArt [facility] Comment: AU/mL Interpretation ------- <9.00 Not consistent with immunity 9.00-10.99 Equivocal >10.99 Consistent with immunity The presence of mumps IgG antibody suggests immunization or past or current infection with mumps virus. Rubella Antibody (IgG), Immune Status 5.07 Index 12/23/2024 5:57 AM EDT [employer]Art [facility] Comment: Index Interpretation ----- <0.90 Not consistent with immunity 0.90-0.99 Equivocal > or = 1.00 Consistent with immunity The presence of rubella IgG antibody suggests immunization or past or current infection with rubella virus. Blood Structure of peripheral vein / Unknown Venipuncture / Unknown 12/22/2024 2:14 PM EDT 12/22/2024 2:52 PM EDT [facility] - 12/23/2024 5:57 AM EDT [facility] Received Date: Lauren Hancock MD LAB BLOOD ORDERABLES [facility] al Result [facility] [address] [facility] [address] [facility], [place] [address], everyArt [facility] [address], [place] [address], * (ABNORMAL) Herpes Simplex Virus 1&2, IgG (12/22/2024 2:14 PM EDT) HSV 1 IgG Type Specific Ab 46.90(H) index 12/23/2024 3:42 AM EDT [facility]Art [facility] HSV 2 IgG Type Specific Ab <0.90 index 12/23/2024 3:42 AM EDT [employer] Comment: Index Interpretation ----- <0.90 Negative 0.90-1.09 [...] screening. For additional information, please refer to http://education.Melophone/faq/XYH397 (This link is being provided for informational/ educational purposes only.) Blood Structure of peripheral vein / Unknown Venipuncture / Unknown 12/22/2024 2:14 PM EDT 12/22/2024 2:50 PM EDT [facility] 12/23/2024 3:42 AM EDT [facility] Received Date: Lauren Hancock MD LAB BLOOD ORDERABLES [facility] al Result [facility] [address] [facility] [address], [place] [address], [email or web address] [facility] [address] [facility] [address], [place] [address], * (ABNORMAL) Protein Electrophoresis w/Reflex to Immunofixation, Serum (12/22/2024 2:14 PM EDT) Pathologist [facility] Protein, Total 7.6 6.1 - 8.1 g/dL 12/23/2024 10:54 PM EDT [email or web address] [facility] Albumin 3.8 3.8 - 4.8 g/dL 12/23/2024 10:54 PM EDT [email or web address] [facility] Alpha 1 Globulin 0.4(H) 0.2 - 0.3 g/dL 12/23/2024 10:54 PM EDT [email or web address] [facility] Alpha 2 Globulin 0.9 0.5 - 0.9 g/dL 12/23/2024 10:54 PM EDT [email or web address] [facility] Beta 1 Globulin 0.5 0.4 - 0.6 g/dL 12/23/2024 10:54 PM EDT [email or web address] [facility] Beta 2 Globulin 0.5 0.2 - 0.5 g/dL 12/23/2024 10:54 PM EDT [email or web address] [facility] Gamma Globulin 1.5 0.8 - 1.7 g/dL 12/23/2024 10:54 PM EDT [email or web address] [facility] Interpretation See Comments 12/23/2024 10:54 PM EDT [email or web address] [facility] Comment: Alpha-1 globulin increase noted. Blood Structure of peripheral vein / Unknown Venipuncture / Unknown 12/22/2024 2:14 PM EDT 12/22/2024 2:50 PM EDT Narrative [facility] 12/23/2024 10:54 PM EDT [facility] Received Date: us Lauren Hancock MD LAB BLOOD ORDERABLES Fin al Result Performing Organization Address City/[facility]/ZIP Co de Phone Number [facility] [address] [place] [address], [place] [phone] [email or web address] [facility] [address] [place] [address], [place] [phone] * RPR (Diagnosis) w/Reflex to Titer & TPPA Confirm (12/22/2024 2:14 PM EDT) RPR W/Refl Titer NON-REACT DEREJE NON-REACT DEREJE 12/23/2024 11:34 AM EDT [email or web address] [facility] Blood Structure of peripheral vein / Unknown Venipuncture / Unknown 12/22/2024 2:14 PM EDT 12/22/2024 2:51 PM EDT Narrative [facility] [facility] - 12/23/2024 11:34 AM EDT [facility] Received Date: us Lauren Hancock MD LAB BLOOD ORDERABLES Fin al Result [facility] [place] [address], [place] [address], [place] [phone] [email or web address] [address] Floor, [place] [address], [place] [phone] * (ABNORMAL) Iron Saturation (12/22/2024 2:14 PM EDT) Iron Saturation 19(L) 20 - 50 % 3:36 PM EDT [facility] Iron 59 30 - 160 ug/dL 12/22/2024 3:36 PM EDT [facility] Transferrin 252 200 - 360 mg/dL 12/22/2024 3:36 PM EDT [facility] Total Iron Binding Capacity 315 255 - 450 ug/dL 12/22/2024 3:36 PM EDT [facility] Blood Structure of peripheral vein / Unknown Venipuncture / Unknown 12/22/2024 2:14 PM EDT 12/22/2024 2:51 PM EDT us Lauren Hancock MD LAB BLOOD ORDERABLES Fin al Result [facility] [address] [place] [address], * TSH Reflex Free T4 (12/22/2024 2:14 PM EDT) TSH 3.360 0.280 - 3.890 uIU/mL 12/22/2024 3:36 PM EDT [facility] Comment: Females: 1st trimester 0.150-4.000 IU/mL 2nd trimester 0.310-4.170 IU/mL 3rd trimester 0.380-4.150 IU/mL Blood Structure of peripheral vein / Unknown Venipuncture / Unknown 12/22/2024 2:14 PM EDT 12/22/2024 2:51 PM EDT us Lauren Hancock MD LAB BLOOD ORDERABLES Fin al Result Performing Organization Address [facility]/ZIP Co de Phone Number [facility] [address] [place] [address], * QuantiFERON-TB Gold Plus, 1 Tube (12/22/2024 2:14 PM EDT) Pathologist [facility] QuantiFERON-TB Gold Plus NEGATIVE NEGATIVE 12/24/2024 3:33 PM EDT [email or web address] Comment: Negative test result. M. tuberculosis complex infection unlikely. NIL 0.02 IU/mL 12/24/2024 3:33 PM EDT [email or web address] Mitogen-NIL 6.90 IU/mL 12/24/2024 3:33 PM EDT [email or web address] TB1-NIL 0.00 IU/mL 12/24/2024 3:33 PM EDT [email or web address] TB2-NIL 0.00 IU/mL 12/24/2024 3:33 PM EDT [email or web address] Comment: The Nil tube value reflects [...] T-lymphocytes. For additional information, please refer to https://education.Revolv.HealPay/faq/ANN172 (This link is being provided for informational/ educational purposes only.) Blood Structure of peripheral vein / Unknown Venipuncture / Unknown 12/22/2024 2:14 PM EDT 12/22/2024 2:42 PM EDT [facility] [place] - 12/24/2024 3:33 PM EDT [facility] Received Date: Lauren Hancock MD LAB BLOOD ORDERABLES Fin al Result [facility] 200 [facility] 3rd Floor, [place] [address], [place] [phone] [email or web address] 200 [facility] 3rd Floor, [place] [address], [place] [phone] * (ABNORMAL) CBC Auto Differential (12/22/2024 2:14 PM EDT) WBC 4.9 3.8 - 10.8 10*3/uL 12/22/2024 3:21 PM EDT [facility] RBC 4.19 3.80 - 5.10 10*6/uL 12/22/2024 3:21 PM EDT [facility] Hemoglobin 12.1 11.7 - 15.5 g/dL 12/22/2024 3:21 PM EDT [facility] Hematocrit 37.6 35.0 - 45.0 % 12/22/2024 3:21 PM EDT [facility] MCV 89.7 80.0 - 100.0 fL 12/22/2024 3:21 PM EDT [facility] MCH 28.9 27.0 - 33.0 pg 12/22/2024 3:21 PM EDT [facility] MCHC 32.2 32.0 - 36.0 g/dL 12/22/2024 3:21 PM EDT [facility] RDW 14.8 11.0 - 15.0 % 12/22/2024 3:21 PM EDT [facility] Platelets 113(L) 140 - 400 10*3/uL 12/22/2024 3:21 PM EDT [facility] MPV 12/22/2024 3:21 PM EDT [facility] Comment:Test not performed. Neutrophil % 68.8 % 12/22/2024 3:21 PM EDT [facility] Immature Grans % 0.2 0.0 - 0.9 % 12/22/2024 3:21 PM EDT [facility] Lymphocyte % 18.9 % 12/22/2024 3:21 PM EDT [facility] Monocyte % 8.8 % 12/22/2024 3:21 PM EDT [facility] Eosinophil % 2.9 % 12/22/2024 3:21 PM EDT [facility] Basophil % 0.4 % 12/22/2024 3:21 PM EDT [facility] Neutrophil # 3.36 1.50 - 7.80 10*3/uL 12/22/2024 3:21 PM EDT [facility] Immature Grans # <0.03 <=0.03 10*3/uL 12/22/2024 3:21 PM EDT [facility] Lymphocyte # 0.90 0.85 - 3.90 10*3/uL 12/22/2024 3:21 PM EDT [facility] Monocyte # 0.40 0.20 - 0.95 10*3/uL 12/22/2024 3:21 PM EDT [facility] Eosinophil # 0.10 0.02 - 0.50 10*3/uL 12/22/2024 3:21 PM EDT [facility] Basophil # <0.03 0.00 - 0.20 10*3/uL 12/22/2024 3:21 PM EDT [facility] nRBC % 0.0 /100 WBCs 12/22/2024 3:21 PM EDT [facility] nRBC # <0.01 <0.01 10*3/uL 12/22/2024 3:21 PM EDT [facility] Blood Structure of peripheral vein / Unknown Venipuncture / Unknown 12/22/2024 2:14 PM EDT 12/22/2024 2:53 PM EDT us Lauren Hancock MD LAB BLOOD ORDERABLES Fin al Result [facility] [address] [place] [address], [place] * Smooth Muscle Antibody Screen w/Reflex to Titer (12/22/2024 2:14 PM EDT) Pathologist [facility] Smooth Muscle AB Screen NEGATIVE NEGATIVE 12/25/2024 12:24 PM EDT [email or web address] Blood Structure of peripheral vein / Unknown Venipuncture / Unknown 12/22/2024 2:14 PM EDT 12/22/2024 2:51 PM EDT Narr[facility] [place] - 12/25/2024 12:24 PM EDT [facility] Received Date:[id number] us Lauren Hancock MD LAB BLOOD ORDERABLES Fin al Result Performing Organization Address [facility] Co de Phone Number [facility] 200 [facility] 3rd Floor, [place] [address], [place] [phone] [email or web address] [facility] 200 [facility] 3rd Floor, [place] [address], [place] [phone] * (ABNORMAL) Hepatitis C Antibody w/Reflex to PCR (12/22/2024 2:14 PM EDT) Pathologist [facility] Hepatitis C Antibody REACTIVE( A) NON-REACT DEREJE 12/22/2024 10:35 PM EDT [email or web address] Comment: Based on this result, the sample will be tested for HCV RNA by a Nucleic Acid Amplification Test (NAAT) to determine if the patient has a current active infection. Blood Structure of peripheral vein / Unknown Venipuncture / Unknown 12/22/2024 2:14 PM EDT 12/22/2024 2:51 PM EDT Narr[facility] [place] - 12/22/2024 10:35 PM EDT [facility] Received Date:[id number] us Lauren Hancock MD LAB BLOOD ORDERABLES Fin al Result [facility] [address], [place] [address], [place] [phone] [email or web address] [address], [address] [facility] [place] [address], [place] [phone] * (ABNORMAL) Hepatitis A Antibody, Total (12/22/2024 2:14 PM EDT) Pathologist [facility] Hepatitis A Ab, Total REACTIVE( A) NON-REACT DEREJE 12/22/2024 10:28 PM EDT [facility] Comment: For additional information, please refer to http://education.[employer] Option [place]/faq/QMC510 (This link is being provided for informational/ educational purposes only.) Blood Structure of peripheral vein / Unknown Venipuncture / Unknown 12/22/2024 2:14 PM EDT 12/22/2024 2:51 PM EDT Narrative [facility] - 12/22/2024 10:28 PM EDT [facility] Received Date: us Lauren Hancock MD LAB BLOOD ORDERABLES Fin al Result [facility] [address], [place] [address], [place] [phone] [email or web address] [address], [place] [address], [place] [phone] * STEPHON Screen, Reflex to Titer, IFA (12/22/2024 2:14 PM EDT) Pathologist [facility] STEPHON Screen, IFA NEGATIVE NEGATIVE 10:48 AM EDT [facility] Comment: STEPHON IFA is a first line [...] AC-0: Negative International Consensus on STEPHON Patterns (https://doi.org/10.1515/srdo-2825-1728) For additional information, please refer to http://CityNews.Melophone/faq/BKK595 (This link is being provided for informational/ educational purposes only.) Blood Structure of peripheral vein / Unknown Venipuncture / Unknown 12/22/2024 2:14 PM EDT 12/22/2024 2:52 PM EDT Narrative [facility] - 12/24/2024 10:48 AM EDT [facility] Received Date:[id number] us Lauren Hancock MD LAB BLOOD ORDERABLES Fin al Result Performing Organization Address [facility] Co de Phone Number [facility] [place] [address], [place] [address], [place] [phone] [email or web address] [address], [place] [address], [place] [phone] * Ceruloplasmin (12/22/2024 2:14 PM EDT) Ceruloplasmin 39 14 - 48 mg/dL 12/23/2024 2:32 AM EDT [facility] Blood Structure of peripheral vein / Unknown Venipuncture / Unknown 12/22/2024 2:14 PM EDT 12/22/2024 2:50 PM EDT Narrative [facility] - 12/23/2024 2:32 AM EDT [facility] Received Date:[id number] us Lauren Hancock MD LAB BLOOD ORDERABLES Fin al Result Performing Organization Address City/[facility]/ZIP Co de Phone Number [facility] [place] [address], [place] [address], [place] [phone] [facility] [address], [place] [address], * (ABNORMAL) Zinc (12/22/2024 2:14 PM EDT) Pathologist [facility] Zinc 54(L) 60 - 130 mcg/dL 12/24/2024 7:44 PM EDT [facility] ([place]) Comment: This test was developed and its analytical performance characteristics have been determined by [employer] [place], [place]. It has not been cleared or approved by the U.S. Food and Drug Administration. This assay has been validated pursuant to the CLIA regulations and is used for clinical purposes. Blood Structure of peripheral vein / Unknown Venipuncture / Unknown 12/22/2024 2:14 PM EDT 12/22/2024 2:50 PM EDT Srik[facility] CARDONA) - 12/24/2024 7:44 PM EDT [facility] Received Date: Lauren Hancock MD LAB BLOOD ORDERABLES Fin al Result [facility] (FISH[place]) [address] [place], [place] , [place] * (ABNORMAL) Vitamin A (Retinol) (12/22/2024 2:14 PM EDT) Pathologist [facility] Vitamin A (Retinol) 29(L) 38 - 98 mcg/dL 12/24/2024 6:46 PM EDT [facility] ([place]) Comment: Vitamin supplementation within 24 hours prior to blood draw may affect the accuracy of the results. This test was developed and its analytical performance characteristics have been determined by [employer] [place], [place]. It has not been cleared or approved by the U.S. Food and Drug Administration. This assay has been validated pursuant to the CLIA regulations and is used for clinical purposes. Blood Structure of peripheral vein / Unknown Venipuncture / Unknown 12/22/2024 2:14 PM EDT 12/22/2024 2:46 PM EDT [facility] DA S[facility] (NICHOL[place]) - 12/24/2024 6:46 PM EDT [facility] Received Date:[id number] us Lauren Hancock MD LAB BLOOD ORDERABLES Fin al Result Performing Organization Address City/[facility] Co de Phone Number [facility] CARDONA) [address] [place] [address], [place] * (ABNORMAL) Emma-Dietz Virus VCA, IgG (12/22/2024 2:14 PM EDT) EBV Viral Capsid Ag Ab (IGG) 652.00(H) U/mL 12/23/2024 3:42 AM EDT [facility] Comment: U/mL Interpretation ---- <18.00 Negative 18.00-21.99 Equivocal >21.99 Positive Blood Structure of peripheral vein / Unknown Venipuncture / Unknown 12/22/2024 2:14 PM EDT 12/22/2024 2:50 PM EDT S[facility]FFORD [place] - 12/23/2024 3:42 AM EDT [employer] Received Date:[id number] Lauren Hancock MD LAB BLOOD ORDERABLES Fin al Result Performing Organization Address [facility] de Phone Number [facility] [place] 200 [facility] [address] [facility], [place] [address], [email or web address] [facility] [address], [place] [address], * Hepatitis B Core Antibody, Total (12/22/2024 2:14 PM EDT) Pathologist [facility] Hepatitis B Core Ab Total NON-REACT DEERJE NON-REACT DEREJE 12/22/2024 7:44 PM EDT [facility] Comment: For additional information, please refer to http://CityNews.[employer] [place]/faq/AIY041 (This link is being provided for informational/ educational purposes only.) Blood Structure of peripheral vein / Unknown Venipuncture / Unknown 12/22/2024 2:14 PM EDT 12/22/2024 2:50 PM EDT Srikanth MENEZES - 12/22/2024 7:44 PM EDT [facility] Received Date:[id number] Lauren Hancock MD LAB BLOOD ORDERABLES Fin al Result [facility] 200 [facility] 3rd Floor, [place] [address], [email or web address] [facility] 200 [facility] 3rd Floor, [place] [address], * Hepatitis C RNA, Quantitative, PCR (12/22/2024 2:14 PM EDT) [facility] Hcv RNA, Quantitative Real Time PCR <15 NOT DETECTED NOT DETECTED IU/mL 12/23/2024 1:16 PM EDT [email or web address] Hepatitis C Quantitative PCR Log IU/mL <1.18 NOT DETECTED NOT DETECTED Log IU/mL 12/23/2024 1:16 PM EDT [facility] Comment: HCV RNA is not detected. There [...] more information on this test, go to: http://education.Natural Option [place]/faq/NSA83x6 (This link is being provided for informational/ educational purposes only.) This assay is intended for use as an aid in the diagnosis of HCV infection and the management of HCV infected patients undergoing anti-viral therapy. Blood Structure of peripheral vein / Unknown Venipuncture / Unknown 12/22/2024 2:14 PM EDT 12/22/2024 2:51 PM EDT Srikanth MENEZES - 12/23/2024 1:16 PM EDT [facility] Received Date:[id number] us Lauren Hancock MD LAB BLOOD ORDERABLES Fin al Result [facility] [address], [place] [address], [email or web address] [facility] [address], [place] [address], * Vitamin D, 25-Hydroxy, Total, Immunoassay (12/22/2024 2:14 PM EDT) Calcidiol+ercalc idiol 62 30 - 100 ng/mL 12/22/2024 10:26 PM EDT [email or web address] Comment: Vitamin D Status 25-OH Vitamin D: Deficiency: <20 ng/mL Insufficiency: 20 - 29 ng/mL Optimal: > or = 30 ng/mL For 25-OH Vitamin D testing on patients on D2-supplementation and patients for whom quantitation of D2 and D3 fractions is required, the QuestAssureD(TM) 25-OH VIT D, (D2,D3), LC/MS/MS is recommended: order code 23294 (patients >2yrs). See Note 1 Note 1 For additional information, please refer to http://education.Melophone/faq/OAE702 (This link is being provided for informational/ educational purposes only.) Blood Structure of peripheral vein / Unknown Venipuncture / Unknown 12/22/2024 2:14 PM EDT 12/22/2024 2:51 PM EDT Narrative [facility] [place] - 12/22/2024 10:26 PM EDT [facility] Received Date:[id number] us Lauren Hancock MD LAB BLOOD ORDERABLES Fin al Result [facility] 200 [facility] [address] [facility], [place] [address], [place] [phone] [email or web address] [facility] [address], [place] [address], [place] [phone] * Mitochondrial Antibody w/Reflex (12/22/2024 2:14 PM EDT) Pathologist [facility] Mitochondrial Ab Screen NEGATIVE NEGATIVE 12/25/2024 12:24 PM EDT [email or web address] Blood Structure of peripheral vein / Unknown Venipuncture / Unknown 12/22/2024 2:14 PM EDT 12/22/2024 2:51 PM EDT [facility] [place] - 12/25/2024 12:24 PM EDT [facility] Received Date: us Lauren Hancock MD LAB BLOOD ORDERABLES Fin al Result [facility] [address], [place] [address], [place] [phone] [email or web address] [address], [place] [address], [place] [phone] * Toxoplasma gondii Antibody, IgG (12/22/2024 2:14 PM EDT) [facility] Toxoplasma Ab IgG <7.20 IU/mL 12/23/2024 4:53 AM EDT [email or web address] Comment: IU/mL Interpretation ------ <7.20 Negative 7.20-8.79 Equivocal >8.79 Positive Blood Structure of peripheral vein / Unknown Venipuncture / Unknown 12/22/2024 2:14 PM EDT 12/22/2024 2:51 PM EDT [facility] [place] - 12/23/2024 4:53 AM EDT [facility] Received Date: us Lauren Hancock MD LAB BLOOD ORDERABLES Fin al Result [facility] 200 [facility] 3rd Floor, [place] [address], [place] [phone] [email or web address] [facility] 200 [facility] 3rd Floor, [place] [address], * HIV-1/2 Antigen/Antibodies 4th Generation w/Reflex (12/22/2024 2:14 PM EDT) Pathologist [facility] HIV Final Interp See Comments 12/22/2024 7:45 PM EDT [email or web address] [facility] Comment: HIV Negative HIV-1 antigen and HIV-1/HIV-2 antibodies were not detected. There is no laboratory evidence of HIV infection. Blood Structure of peripheral vein / Unknown Venipuncture / Unknown 12/22/2024 2:14 PM EDT 12/22/2024 2:50 PM EDT Narrative [facility] - 12/22/2024 7:45 PM EDT [facility] Received Date: us Lauren Hancock MD LAB BLOOD ORDERABLES Fin al Result [facility] [place] 200 [facility] 3rd Floor, [place] [address], [email or web address] [facility] 200 [facility] 3rd Floor, [place] [address], * Hepatitis B Surface Antibody (12/22/2024 2:14 PM EDT) [facility] Hepatitis B Surface Ab Immunity, Qn 173 > OR = 10 mIU/mL 12/22/2024 10:28 PM EDT [email or web address] Comment: PATIENT HAS IMMUNITY TO HEPATITIS B VIRUS. For additional information, please refer to http://education.Revolv.HealPay/faq/THS366 (This link is being provided for informational/ educational purposes only). Blood Structure of peripheral vein / Unknown Venipuncture / Unknown 12/22/2024 2:14 PM EDT 12/22/2024 2:51 PM EDT [facility] - 12/22/2024 10:28 PM EDT [facility] Received Date: us Lauren Hancock MD LAB BLOOD ORDERABLES Fin al Result Performing Organization Address City/[facility]/ZIP Co de Phone Number [facility] [place] [address], [place] [address], [email or web address] [facility] [address], [place] [address], * Hepatitis B Surface Antigen w/Confirmation (12/22/2024 2:14 PM EDT) Pathologist [facility] Hepatitis B Surface Antigen NON-REACT DEREJE NON-REACT DEREJE 12/23/2024 10:30 AM EDT [facility] Comment: For additional information, please refer to http://education.[employer] Option [place]/faq/ARW923 (This link is being provided for informational/ educational purposes only.) Blood Structure of peripheral vein / Unknown Venipuncture / Unknown 12/22/2024 2:14 PM EDT 12/22/2024 2:52 PM EDT Narrative [facility] - 12/23/2024 10:30 AM EDT [facility] Received Date:[id number] Lauren Hancock MD LAB BLOOD ORDERABLES Fin al Result Performing Organization Address City/[facility]/ZIP Co de Phone Number [facility] [address], [place] [address], [place] [phone] [email or web address] [facility] [address], [place] [address], * (ABNORMAL) Cytomegalovirus Antibody, IgG (12/22/2024 2:14 PM EDT) Pathologist [facility] Cytomegalovirus Antibody (IgG) >10.00(H ) U/mL 12/23/2024 3:42 AM EDT [facility] Comment: U/mL Interpretation ----- <0.60 Negative 0.60-0.69 Equivocal > or = 0.70 Positive A positive result indicates that the patient has antibody to CMV. It does not differentiate between an active or past infection. Blood Structure of peripheral vein / Unknown Venipuncture / Unknown 12/22/2024 2:14 PM EDT 12/22/2024 2:50 PM EDT Narrative [facility] - 12/23/2024 3:42 AM EDT [facility] Received Date: us Lauren Hancock MD LAB BLOOD ORDERABLES Fin al Result [facility] 200 [facility] [address]rd Floor, [place] [address], [place] [phone] [email or web address] [facility] 200 [facility] 3rd [address], [place] [address], [place] [phone] * PTT (12/22/2024 2:14 PM EDT) aPTT 29.1 23.0 - 32.0 Seconds 12/22/2024 3:16 PM EDT [facility] Comment: Current PTT reagent is not sensitive to detect all Lupus Anticoagulant (LA) Inhibitor Cases. If a LA is suspected, please order a Lupus Anticoagulation w/ Reflex Test which is performed at [facility] in [place], [place]. Blood Structure of peripheral vein / Unknown Venipuncture / Unknown 12/22/2024 2:14 PM EDT 12/22/2024 2:53 PM EDT us Lauren Hancock MD LAB BLOOD ORDERABLES Fin al Result [facility] [address] [place] [address], [place] * (ABNORMAL) Protime-INR (12/22/2024 2:14 PM EDT) PT 12.6(H) 9.6 - 12.4 Seconds 12/22/2024 3:16 PM EDT [facility] INR 1.2 0.9 - 1.1 12/22/2024 3:16 PM EDT [facility] Comment:The optimal therapeu tic INR range for patients treated with Vitamin K antagonists (VKAS, e.g., Warfarin) is 2.0 to 3.5. Discuss the desired range with your doctor/care team. Blood Structure of peripheral vein / Unknown Venipuncture / Unknown 12/22/2024 2:14 PM EDT 12/22/2024 2:53 PM EDT Lauren Hancock MD LAB BLOOD ORDERABLES Fin al Result Performing Organization Address City/[facility] Co de Phone Number [facility] [address] [place] [address], * Type and Screen (12/22/2024 2:14 PM [...] BLOOD BANK TEST ORDE MAGALIS Final Result [facility] [address] [place] [address], * Varicella Zoster Antibody, IgG (12/22/2024 2:14 PM EDT) Varicella Zoster Virus Antibody 30.50 S/CO 12/22/2024 10:41 PM EDT [facility] Comment: Signal to Cut-off S/CO Interpretation --------- [...] PM EDT 12/22/2024 2:51 PM EDT Narrative [facility] - 12/22/2024 10:41 PM EDT [facility] Received Date: us Lauren Hancock MD LAB BLOOD ORDERABLES Fin al Result [facility] 200 [facility] [address] [facility], [place] [address], [place] [phone] [email or web address] [address], [place] [address], [place] [phone] * Phosphorus (12/22/2024 2:14 PM EDT) Phosphorus 4.0 2.5 - 4.5 mg/dL 12/22/2024 3:36 PM EDT [facility] Blood Structure of peripheral vein / Unknown Venipuncture / Unknown 12/22/2024 2:14 PM EDT 12/22/2024 2:51 PM EDT us Lauren Hancock MD LAB BLOOD ORDERABLES Fin al Result [facility] [address] [place] [address], [place] * Magnesium (12/22/2024 2:14 PM EDT) MG 1.6 1.6 - 2.4 mg/dL 12/22/2024 3:36 PM EDT [facility] Blood Structure of peripheral vein / Unknown Venipuncture / Unknown 12/22/2024 2:14 PM EDT 12/22/2024 2:51 PM EDT us Lauren Hancock MD LAB BLOOD ORDERABLES Fin al Result [facility] [address] [place] [address], * (ABNORMAL) Hemoglobin A1c (12/22/2024 2:14 PM EDT) Hemoglobin A1C 5.9(H) <5.7 % 12/22/2024 8:27 PM EDT [employer] Comment: For someone without known diabetes, a [...] (MG/DL) 123 mg/dL 12/22/2024 8:27 PM EDT [facility] eAG (MMOL/L) 6.8 mmol/L 12/22/2024 8:27 PM EDT [facility] Blood Structure of peripheral vein / Unknown Venipuncture / Unknown 12/22/2024 2:14 PM EDT 12/22/2024 2:51 PM EDT Narrative [facility] - 12/22/2024 8:27 PM EDT [facility] Received Date:[id number] us Lauren Hancock MD LAB BLOOD ORDERABLES Fin al Result [facility] [address] [facility] 3rd Floor, [place] [address], [place] [phone] [email or web address] [facility] [address] [place] 3rd Floor, [place] [address], [place] [phone] * Ferritin (12/22/2024 2:14 PM EDT) Ferritin 172.0 11.0 - 306.0 ng/mL 12/22/2024 3:36 PM EDT [facility] Blood Structure of peripheral vein / Unknown Venipuncture / Unknown 12/22/2024 2:14 PM EDT 12/22/2024 2:51 PM EDT us Lauren Hancock MD LAB BLOOD ORDERABLES Fin al Result [facility] [address] [place] [address], [place] * Bilirubin, Direct (12/22/2024 2:14 PM EDT) Bilirubin, Direct 0.3 <=0.4 mg/dL 12/22/2024 3:36 PM EDT [facility] Blood Structure of peripheral vein / Unknown Venipuncture / Unknown 12/22/2024 2:14 PM EDT 12/22/2024 2:51 PM EDT Lauren Hancock MD LAB BLOOD ORDERABLES Fin al Result [facility] [address] [place] [address], [place] * Ethanol (12/22/2024 2:14 PM EDT) Ethanol <10 <10 mg/dL 12/22/2024 3:38 PM EDT [facility] Blood Structure of peripheral vein / Unknown Venipuncture / Unknown 12/22/2024 2:14 PM EDT 12/22/2024 2:50 PM EDT Lauren Hancock MD LAB BLOOD ORDERABLES Fin al Result [facility] [address] [place] [address], * (ABNORMAL) Lipid panel (12/22/2024 2:14 PM EDT) Cholesterol 203(H) <=199 mg/dL 12/22/2024 3:36 PM EDT [facility] Triglycerides 171(H) <=149 mg/dL 12/22/2024 3:36 PM EDT [facility] Cholesterol, HDL 39(L) 40 - 59 mg/dL 12/22/2024 3:36 PM EDT [facility] Cholesterol, Non-HDL 164 mg/dL 12/22/2024 3:36 PM EDT [facility] LDL Cholesterol 130(H) <100 mg/dL 12/22/2024 3:36 PM EDT [facility] VLDL 34.2 mg/dL 12/22/2024 3:36 PM EDT [facility] Cholesterol/HDL Ratio 5.2(H) <5.0 12/22/2024 3:36 PM EDT [facility] Blood Structure of peripheral vein / Unknown Venipuncture / Unknown 12/22/2024 2:14 PM EDT 12/22/2024 2:51 PM EDT Narrative [facility] - 12/22/2024 3:36 PM [...] MD LAB BLOOD ORDERABLES Fin al Result [facility] [address] [place] [address], * (ABNORMAL) Comprehensive Metabolic Panel (12/22/2024 2:14 PM EDT) NA 141 135 - 145 mmol/L 12/22/2024 3:36 PM EDT [facility] K 3.9 3.5 - 5.3 mmol/L 12/22/2024 3:36 PM EDT [facility] Cl 101 98 - 107 mmol/L 12/22/2024 3:36 PM EDT [facility] CO2 27 22 - 32 mmol/L 12/22/2024 3:36 PM EDT [facility] Anion Gap 13 5 - 15 12/22/2024 3:36 PM EDT [facility] Glucose 85 65 - 99 mg/dL 12/22/2024 3:36 PM EDT [facility] Creatinine 0.77 0.50 - 1.20 mg/dL 12/22/2024 3:36 PM EDT [facility] Calcium 10.5 8.6 - 10.5 mg/dL 12/22/2024 3:36 PM EDT [facility] Total Protein 8.3(H) 6.0 - 8.0 g/dL 12/22/2024 3:36 PM EDT [facility] Albumin 3.9 3.5 - 5.2 g/dL 12/22/2024 3:36 PM EDT [facility] Bilirubin, Total 0.6 0.2 - 1.2 mg/dL 12/22/2024 3:36 PM EDT [facility] Alkaline Phosphatase 71 35 - 129 U/L 12/22/2024 3:36 PM EDT [facility] AST 35 10 - 40 U/L 12/22/2024 3:36 PM EDT [facility] ALT 30 10 - 40 U/L 12/22/2024 3:36 PM EDT [facility] BUN 12 7 - 23 mg/dL 12/22/2024 3:36 PM EDT [facility] eGFR 83 >=60 mL/min/1. 73m2 12/22/2024 3:36 PM EDT [facility] Comment:The estimated glomer ular [...] - 4.2 g/dL 12/22/2024 3:36 PM EDT [facility] A/G Ratio 0.9(L) 1.5 - 3.0 12/22/2024 3:36 PM EDT [facility] Blood Structure of peripheral vein / Unknown Venipuncture / Unknown 12/22/2024 2:14 PM EDT 12/22/2024 2:51 PM EDT Lauren Hancock MD LAB BLOOD ORDERABLES Fin al Result [facility] [address] [place] [address], [place] * IMAGING - SCANNED (11/19/2024 4:50 PM EDT) Anatomical Region Laterality Modality Other us Unknown Provider SCANNED PROCEDURES Final Res ult from Last 3 Months Insurance [address] [place] [phone] [place] [address] [place] [address] [place] Advance Directives Documents on File Type Date Recorded Patient Station Worker Expl anation Health Care Proxy 01/19/2025 2:50 PM 2024 Care Teams Or Manager Relationship Specialty Start Date End Date Darius Tamayo MD [address] [place] [phone] PCP - General Gastroenterology 12/22/24
--- OUTSIDE RECORDS SUMMARY | 2025-01-26 12:49 | XMS_ITS | Encounter Summary ---
Author Organization [facility] Address [address] [place] [address] Care Team Providers Care Deputy Court Name Role Phone Darius Tamayo MD Primary Care Provider [phone] Encounter Details Date Type Department Care Team (Late st Contact Info) Description 01/07/2025 Results Follow-Up [facility] G[facility] [address] [place] [phone] Director Of Community Services: Lauren Hernandez MD [address] [place] [address] [phone] Social History Tobacco Use Types Packs/Day Years [...] Description 02/12/2025 11:00 AM EDT Office Visit [facility] ACC Building 4th floor Cardiology Medicine [address] [place] [address] Director Of Community Services: James Reynoso MD [address] [place] [address] 03/18/2025 2:00 PM EST Follow-Up [facility] Liver Transplant Services [address] [place] [address] Lauren Hancock MD [address] [place] [address] documented as of this encounter Visit Diagnoses Not on filedocumented in this encounter Care Teams Deputy Court Relationship Specialty Start Date End Date Darius Tamayo MD [address] [place] [phone] PCP - General Gastroenterology 12/22/24 documented as of this encounter
--- OUTSIDE RECORDS SUMMARY | 2025-01-26 12:49 | XMS_ITS | Encounter Summary ---
Author Organization [employer] Address [address] [facility] 7t [place] [address] Care Team Providers Care Windows Architect Name Role Phone Sudha Mitchell Primary Care Provider [phone] Everett Rojas MD Unavailable [phone] Reason for Visit * Reason Onset Date Comments Tracheostomy Tube Check 01/22/2025 Encounter Details Date Type Department Care Team ([facility] st Contact Info) Description 01/22/2025 Telephone [facility] [address] [place] [address] Sudha Mitchell ANP [address] [place] [address] Tracheostomy Tube Check Social History Tobacco Use Types Packs/Day Years [...] encounter Miscellaneous Notes * Telephone Encounter - Usha Rodríguez RN - 01/22/2025 9:07 AM EDT TC placed to pt for status check seen in walk in with PCP for chronic back pain. Pt states she is feeling a little better when she gets pain it is a very strong pain. Asked pt is she has taken oxycodone that provider gave her to help alleviate the pain make it more manageable. Pt states she has taken the pain medication and it is helpful. Discussed the walk in center hours including Saturday and ED precautions. Pt will continue with plan of care ----- Message from Sudha Mitchell sent at 01/20/2025 6:44 PM EDT ----- Please call pt for status check Saturday01/23/25 AM documented in this encounter Plan of Treatment Upcoming Encounters Date Type Department Care Team ([facility] st Contact Info) Description 02/09/2025 11:00 AM EDT Clinical Support [facility] MED & PEDS [address] [place] [address] Nichole Lucio, MONAE [address] [place] [address] 03/22/2025 2:00 PM EST Office Visit [facility] [address] [place] [address] Sudha Mitchell ANP [address] [place] [address] documented as of this encounter Visit Diagnoses Not on filedocumented in this encounter Additional Health Concerns Assessment Noted Time PHQ-9 Depression Total Score: 7 10/08/19 25 7:52 AM EDT documented as of this encounter Care Teams Windows Architect Relationship Specialty Start Date End Date Sudha Mitchell ANP [address] [place] [phone] PCP - General Family Medicine 09/29/19 Everett Rojas MD [address] 3rd [place] [address] Cardiology 04/21/24 documented as of this encounter
--- OUTSIDE RECORDS SUMMARY | 2025-01-26 12:49 | XMS_ITS | Encounter Summary ---
Author Organization [employer] Address [address] [facility] 7t [place] [address] Care Team Providers Care Ict Managers Name Role Phone Stephen Sudha WEI Primary Care Provider [phone] Everett Rojas MD Unavailable [phone] Encounter Details Date Type Department Care Team (Late st Contact Info) Description 01/26/2025 Orders Only GENERIC EXTERNAL DATA DEPARTMENT Provider, Generic External Data Social History Tobacco Use Types Packs/Day Years [...] t he electric, gas, oil or water [employer] threatened to shut off services in your [...] Description 02/09/2025 11:00 AM EDT Clinical Support [facility] & PEDS [address] [place] [address] Nichole Lucio, RN [address] [place], [place] [phone] 03/22/2025 2:00 PM EST Office Visit [facility] [address] [place] [address] Sudha Mitchell ANP [address] [place] [address] documented as of this encounter Procedures Procedure Name Priority Date/Time Associated Diagnosis Comments INFLUENZA A B2 ID NOW (KIM) Routine 01/26/2025 11:38 AM EDT COVID-19 ID NOW (KIM) Routine 01/26/2025 11:38 AM EDT documented in this encounter Results * Influenza A B2 ID NOW (Kim) (01/26/2025 11:38 AM EDT) IDNOW SERIAL# [id number] [facility] Influenza A Negative Negative [facility] Influenza B2 Negative Negative [facility] Influenza A B2 Note See Note [facility] Comment:The Kim ID NOW In [...] LAB MICROBIOLOGY - GENERAL ORDERABLES Final Result [facility] [address] [place] [address] [phone] * COVID-19 ID NOW (V2contact) (01/26/2025 11:38 AM EDT) IDNOW SERIAL# [id number] [facility] COVID-19 TEST Negative Negative [facility] COVID-19 NOTE See Note [facility] Comment: Results are for the identification of SARS-CoV2 RNA. TheSARS-CoV2 RNA is generally detectable in respiratory samplesduring the acute phase of infection. Positive results areindicative of the presence of SARS-CoV-2 RNA; clinicalcorrelation with patient history and other diagnosticinformation is necessary to determine patient infectionstatus. Positive results do not rule out bacterial infectionor co- infection with other viruses.Testing facilities within the [facility] and [facility] are required to report all positive results [...] use by authorized laboratories.Testing performed on the [employer] ID NOW utilizing NAAT. 01/26/2025 11:3 8 AM EDT 01/26/2025 11:41 AM EDT us Generic External Data Provider LAB MOLECULAR [facility]ON [employer] ORDERABLES Final Result [facility] [address] [place] [address] [phone] documented in this encounter Visit Diagnoses Not on filedocumented in this encounter Additional Health Concerns Assessment Noted Time PHQ-9 Depression Total Score: 7 10/08/19 25 7:52 AM EDT documented as of this encounter Care Teams Ict Managers Relationship Specialty Start Date End Date Sudha Mitchell ANP [address] [place] [address] PCP - General Family Medicine 09/29/19 Everett Rojas MD [address] [place] [address] 3rd [place] [address] Cardiology 04/21/24 documented as of this encounter
--- OUTSIDE RECORDS SUMMARY | 2025-01-26 12:49 | XMS_ITS | Encounter Summary ---
Author Organization [employer] Address [address] [place] [address] 7t [place] [address] Care Team Providers Care Franchise Sales Manager Name Role Phone Sudha Mitchell Primary Care Provider [phone] Everett Rojas MD Unavailable [phone] Reason for Visit * Reason Comments Med Refill Encounter Details Date Type Department Care Team (Late st Contact Info) Description 06/22/2022 Refill [facility] [address] [place] [address] Sudha Mitchell ANP [address] [place] [address] Lumbago of lumbar region with sciatica Social [...] Description 02/09/2025 11:00 AM EDT Clinical Support [facility] [address] [place], [place] [phone] Nichole Lucio, MONAE [address] [place], [place] [phone] 03/22/2025 2:00 PM EST Office Visit [facility] [address] [place] [address] Sudha Mitchell ANP [address] [place] [address] documented as of this encounter Visit Diagnoses Diagnosis Lumbago of lumbar region with sciatica documented in this encounter Care Teams Franchise Sales Manager Relationship Specialty Start Date End Date Sudha Mitchell ANP [address] [place] [address] PCP - General Family Medicine 09/29/19 Everett Rojas MD [address] [place] [address] 3rd [place] [address] Cardiology 04/21/24 documented as of this encounter
--- OUTSIDE RECORDS SUMMARY | 2025-01-26 12:49 | XMS_ITS | Encounter Summary ---
Author Organization [employer] Address [address] [facility] 7t [place] [address] Care Team Providers Care Loading Inspector Name Role Phone Sudha Mitchell Primary Care Provider [phone] Everett Rojas MD Unavailable [phone] Reason for Visit * Reason Comments Med Refill Encounter Details Date Type Department Care Team ([facility] st Contact Info) Description 10/18/2023 Refill [facility] [address] [place] [address] Sudha Mitchell ANP [address] [place] [address] Lumbago of lumbar region with sciatica Social [...] Description 02/09/2025 11:00 AM EDT Clinical Support [facility] [address] [place] [address] Nichole Lucio, RN [address] [place] [address] 03/22/2025 2:00 PM EST Office Visit [facility] [address] [place] [address] Sudha Mitchell ANP [address] [place] [address] documented as of this encounter Visit Diagnoses Diagnosis Lumbago of lumbar region with sciatica documented in this encounter Care Teams Loading Inspector Relationship Specialty Start Date End Date Sudha Mitchell ANP [address] [place] [phone] PCP - General Family Medicine 09/29/19 Everett Rojas MD [address] [place] [address] 3rd [place] [address] Cardiology 04/21/24 documented as of this encounter
--- OUTSIDE RECORDS SUMMARY | 2025-01-26 12:49 | XMS_ITS | Encounter Summary ---
Author Organization [facility] Address [address] [place] [address] Care Team Providers Care Mechanical Development Engineer Name Role Phone Darius Tamayo MD Primary Care Provider [phone] Reason for Visit * Reason Comments Med Refill Encounter Details Date Type Department Care Team (Late st Contact Info) Description 01/22/2025 Refill [facility] Liver Transplant Services [address] [place] [address] Lauren Hancock MD [address] [place] [address] Social History Tobacco Use Types Packs/Day Years [...] Description 02/12/2025 11:00 AM EDT Office Visit [facility] Building 4th floor Cardiology Medicine [address] [place], [place] [phone] Power Shovel Operator Helper: James Reynoso MD [address] [place] [address] 03/18/2025 2:00 PM EST Follow-Up [facility] Liver Transplant Services [address] [place], [place] [phone] Lauren Hancock MD [address] [place], [place] [phone] documented as of this encounter Visit Diagnoses Not on filedocumented in this encounter Care Teams Mechanical Development Engineer Relationship Specialty Start Date End Date Darius Tamayo MD [address] [place] [address] PCP - General Gastroenterology 12/22/24 documented as of this encounter
--- OUTSIDE RECORDS SUMMARY | 2025-01-26 12:49 | XMS_ITS | Encounter Summary ---
Author Organization [employer] Address [address] [facility] 7t [place] [address] Care Team Providers Care Wire Inspector Name Role Phone Sudha Mitchell Primary Care Provider [phone] Everett Rojas MD Unavailable [phone] Reason for Visit * Reason Onset Date Comments Pre-op Visit 12/20/2023 Encounter Details Date Type Department Care Team ([facility] st Contact Info) Description 12/20/2023 Telephone [facility] MEDICINE [address] [place] [address] Sudha Mitchell ANP [address] [place] [address] Pre-op Visit Social History Tobacco Use Types [...] [facility] Surgeon's office number: [phone] Ext [phone] Surgeon's office fax number: [phone] Contact name: Mara Last office note from surgeon requested: Yes documented in this encounter Plan of Treatment Upcoming Encounters Date Type Department Care Team (Late st Contact Info) Description 02/09/2025 11:00 AM EDT Clinical Support [facility] MED & PEDS [address] [place] [address] Nichole Lucio, MONAE [address] [place] [address] 03/22/2025 2:00 PM EST Office Visit [facility] MEDICINE [address] [place] [address] Sudha Mitchell, ANP [address] [place] [address] documented as of this encounter Visit Diagnoses Not on filedocumented in this encounter Care Teams Wire Inspector Relationship Specialty Start Date End Date Sudha Mitchell ANP [address] [place] [address] PCP - General Family Medicine 09/29/19 Everett Rojas MD [address] [place] [address] 3rd [place] [address] Cardiology 04/21/24 documented as of this encounter
[2025-01-26 12:59] VITALS: BP 150/74; PULSE 69; RESP 16; TEMP 36.4; O2SAT 97
== END 2025-01-26 12:59 | disposition home or self-care (01) ==
PROVIDERS: Physician Assistant Medical; Emergency Provider Emergency Medicine; PCP Nurse Practitioner Primary Care
DX: M47.22 Other spondylosis with radiculopathy, cervical region (principal); T23.071A Burn of unspecified degree of right wrist, initial encounter; X08.8XXA Exposure to other specified smoke, fire and flames, initial encounter; Y93.9 Activity, unspecified; Y92.9 Unspecified place or not applicable; Y99.9 Unspecified external cause status; M54.2 Cervicalgia; R51.9 Headache, unspecified; I48.0 Paroxysmal atrial fibrillation; M79.601 Pain in right arm; Z79.01 Long term (current) use of anticoagulants
CPT/HCPCS: 70450; 72125; 87502; 87635; 96372; 99282; 99284; J2919

== ENCOUNTER → 2025-01-26 11:02 | Outpatient (BNV) | payer MEDICARE, MEDICAID, SELFPAY | PROVIDERS: PCP Nurse Practitioner Primary Care; Visit Provider Radiology Diagnostic Radiology | DX: M47.812 Spondylosis without myelopathy or radiculopathy, cervical region (principal); I67.2 Cerebral atherosclerosis | CPT/HCPCS: 70450; 72125 ==

== ENCOUNTER 2025-02-05 13:28 | Outpatient (REF) | payer MEDICARE, MEDICAID, SELFPAY ==
--- NOTE | ~2025-02-05 | XR_ITS ---
EXAMINATION: XR HAND 3 OR MORE VIEWS RIGHT HISTORY: Acute right 3rd finger swelling and pain COMPARISON: Comparison is made with the prior examination dated 01/02/2024. FINDINGS: Three views of the right hand are submitted. Osseous mineralization is normal. No fracture or dislocation is identified, although the 3rd finger is flexed on all images, limiting evaluation. 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 The soft tissues are unremarkable. XR/XR hand RT min 3V IMPRESSION: Limited evaluation of the middle finger due to flexion on all images. No fracture is seen. Electronically signed by: Atul Mejía MD 02/05/2025 02:02 PM EDT
--- OUTSIDE RECORDS SUMMARY | 2025-02-05 13:00 | XMS_ITS | Encounter Summary ---
Author Organization [employer] Address [address] 7t [place] [address] Care Team Providers Care Multifocal Button Generator Name Role Phone Sudha Mitchell Primary Care Provider [phone] Everett Rojas MD Unavailable [phone] Reason for Visit * Reason Comments Hand Pain Encounter Details Date Type Department Care Team (Late st Contact Info) Description 02/05/2025 1:00 PM EDT Office Visit [facility] [address] [place] [address] Pain in finger of right hand (Primary Dx) Social History Tobacco Use Types [...] Sign Reading Time Taken Comments Blood Pressure 135/85 02/05/2025 1:11 PM EDT Pulse 76 02/05/2025 1:11 PM EDT Temperature 36.1 C (96.9 F) 02/05/2025 1:11 PM EDT Respiratory Rate - - Oxygen Saturation 96% 02/05/2025 1:11 PM EDT Inhaled Oxygen Concentration - - Weight 67 kg (147 lb 12.8 oz) 02/05/2025 1:11 PM EDT Height - - Body Mass Index 29.85 01/20/2025 6:01 PM EDT documented in this encounter Plan of Treatment Upcoming Encounters Date Type Department Care Team (Late st Contact Info) Description 02/09/2025 11:00 AM EDT Clinical Support [facility] MED & PEDS [address] [place] [address] Nichole Lucio, MONAE 505 [place] [address] 02/16/2025 11:15 AM EDT Office Visit [address] [address] Sudha Mitchell ANP [address] [place] [address] 03/22/2025 2:00 PM EST Office Visit [address] [address] Sudha Mitchell ANP 230 [place] [address] Scheduled Orders Name Type Priority Associated Diagnoses Orde r Schedule Comprehensive Metabolic Panel Lab Routine Pain in finger of right hand Expected: 02/05/2025 (Approximate), Expires: 02/05/2026 CBC auto differential Lab Routine Pain in finger of right hand Expected: 02/05/2025 (Approximate), Expires: 02/05/2026 Sed Rate by Modified [place] Lab Routine Pain in finger of right hand Expected: 02/05/2025, Expires: 02/05/2026 C-reactive Protein Lab Routine Pain in finger of right hand Expected: 02/05/2025 (Approximate), Expires: 02/05/2026 Uric acid, urine Lab Routine Pain in finger of right hand Expected: 02/05/2025 (Approximate), Expires: 02/05/2026 documented as of this encounter Procedures Procedure Name Priority Date/Time Associated Diagnosis Comments XR HAND 3+ VIEWS RIGHT STAT 02/05/2025 1:51 PM EDT Pain in finger of right hand documented in this encounter Results * XR Hand 3+ Views Right (02/05/2025 1:51 PM EDT) Anatomical Region Laterality Modality Upper Extremities, Hand Right Radiogra phic Imaging 02/05/2025 1:51 PM EDT Narrative 02/05/2025 2:05 PM EDT [address] [address] XRay Report Signed Patient: Walt Rajan MR #: [id number] : 1955 Acct:[id number] Age/Sex: 69 / F ADM Date: 02/05/25 Loc: HO.HHCX Attending Dr: Anabela Carlson MD Ordering Physician: Anabela Carlson MD Date of Service: 02/05/25 Procedure(s): XR hand RT min 3V Accession Number(s): [id number] cc: Anabela Carlson MD Reason for Exam: Acute right 3rd finger swelling and pain EXAMINATION: XR HAND 3 OR MORE VIEWS RIGHT HISTORY: Acute right 3rd finger swelling and pain COMPARISON: Comparison is made with the prior examination dated 01/02/2024. FINDINGS: Three views of the right hand are submitted. Osseous mineralization is normal. No fracture or dislocation is identified, although the 3rd finger is flexed on all images, limiting evaluation. 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 The soft tissues are unremarkable. XR/XR hand RT min 3V IMPRESSION: Limited evaluation of the middle finger due to flexion on all images. No fracture is seen. Electronically signed by: Atul Mejía MD 02/05/2025 02:02 PM EDT RP Dictated By: Atul Mejía MD Signed By: <Electronically signed by Atul Mejía MD in OV> 02/05/25 1402 DD/ 1351 TD/TT: 02/05/25 1358 Field Marketing Representative: Procedure Note Donotuseinterpreter, Image - 02/05/[address] [address] XRay Report Signed Patient: Kenyon Rajan #: [id number] : 1955cct:[id number] Age/Sex: 69 / FADM Date: 02/05/25 Loc: HO.HHCX Attending Dr: Anabela Carlson MD Ordering Physician: Anabela Carlson MD Date of Service: 02/05/25 Procedure(s): XR hand RT min 3V Accession Number(s): [id number] cc: Anabela Carlson MD Reason for Exam: Acute right 3rd finger swelling and pain EXAMINATION: XR HAND 3 OR MORE VIEWS RIGHT HISTORY: Acute right 3rd finger swelling and pain COMPARISON: Comparison is made with the prior examination dated 01/02/2024. FINDINGS: Three views of the right hand are submitted. Osseous mineralization is normal. No fracture or dislocation is identified, although the 3rd finger is flexed on all images, limiting evaluation. 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 The soft tissues are unremarkable. XR/XR hand RT min 3V IMPRESSION: Limited evaluation of the middle finger due to flexion on all images. No fracture is seen. Electronically signed by: Atul Mejía MD 02/05/2025 02:02 PM EDT RP Dictated By: Atul Mejía MD Signed By: <Electronically signed by Atul Mejía MD in OV> 02/05/25 1402 DD/ 1351 TD/TT: 02/05/25 1358 Field Marketing Representative: us Anabela Carlson MD IMG XR PROCEDURES Final Resul t documented in this encounter Visit Diagnoses Diagnosis Pain in finger of right hand- Primary Pain in soft tissues of limb documented in this encounter Additional Health Concerns Assessment Noted Time PHQ-9 Depression Total Score: 7 10/08/19 25 7:52 AM EDT documented as of this encounter Care Teams Multifocal Button Generator Relationship Specialty Start Date End Date Sudha Mitchell ANP [address] [place] [address] PCP - General Family Medicine 09/29/19 Everett Rojas MD [address] [place] [address] 3rd [place] [address] Cardiology 04/21/24 documented as of this encounter
--- OUTSIDE RECORDS SUMMARY | 2025-02-05 14:47 | XMS_ITS | Encounter Summary ---
Author Organization [employer] Address [address] [facility] 7t [place] [address] Care Team Providers Care Informatics Physician Name Role Phone Stephen Sudha WEI Primary Care Provider [phone] Everett Rojas MD Unavailable [phone] Encounter Details Date Type Department Care Team (Latest Contact Info) Description 02/05/2025 Travel Social History Tobacco Use Types Packs/Day [...] Description 02/09/2025 11:00 AM EDT Clinical Support [facility] MED & PEDS 505 [place] [address] Nichole Lucio, MONAE 505 [place] [address] 02/16/2025 11:15 AM EDT Office Visit [facility] MEDICINE [address] [place] [address] Sudha Mitchell ANP [address] [place] [address] 03/22/2025 2:00 PM EST Office Visit [address] [address] Sudha Mitchell ANP [address] [place] [address] documented as of this encounter Visit Diagnoses Not on filedocumented in this encounter Additional Health Concerns Assessment Noted Time PHQ-9 Depression Total Score: 7 10/08/19 25 7:52 AM EDT documented as of this encounter Care Teams Informatics Physician Relationship Specialty Start Date End Date Sudha Mitchell ANP [address] [place] [address] PCP - General Family Medicine 09/29/19 Everett Rojas MD [address] 3rd [place] [address] Cardiology 04/21/24 documented as of this encounter
--- OUTSIDE RECORDS SUMMARY | 2025-02-05 14:47 | XMS_ITS | Encounter Summary ---
Author Organization [employer] Address [address] 7t [place] [address] Care Team Providers Care Ethanol Operations Manager Name Role Phone Sudha Mitchell Primary Care Provider [phone] Everett Rojas MD Unavailable [phone] Reason for Visit * Reason Comments Med Refill Encounter Details Date Type Department Care Team ([facility] st Contact Info) Description 03/23/2024 Refill [facility] [address] [place] [address] Sudha Mitchell ANP [address] [place] [address] Lumbago of lumbar region with sciatica Social [...] Clinical Support [facility]ED[facility] 505 [place] [address] Nichole Lucio RN 505 [place] [address] 02/16/2025 11:15 AM EDT Office Visit [facility] MEDICINE [address] [place] [address] Sudha Mitchell ANP [address] [place] [address] 03/22/2025 2:00 PM EST Office Visit [address] [address] Sudha Mitchell ANP [address] [place] [address] documented as of this encounter Visit Diagnoses Diagnosis Lumbago of lumbar region with sciatica documented in this encounter Care Teams Ethanol Operations Manager Relationship Specialty Start Date End Date Sudha Mitchell ANP [address] [place] [address] PCP - General Family Medicine 09/29/19 Everett Rojas MD [address] 3rd [place] [address] Cardiology 04/21/24 documented as of this encounter
--- OUTSIDE RECORDS SUMMARY | 2025-02-05 14:47 | XMS_ITS | Encounter Summary ---
Author Organization [employer] Address [address] [place] [address] 7t [place] [address] Care Team Providers Care Log Truck Driver Name Role Phone Sudha Mitchell Primary Care Provider [phone] Everett Rojas MD Unavailable [phone] Reason for Visit * Reason Comments Med Refill Encounter Details Date Type Department Care Team (Late st Contact Info) Description 06/22/2022 Refill [facility] MEDICINE [address] [place] [address] Sudha Mitchell ANP 230 [place] [address] Lumbago of lumbar region with sciatica Social [...] 02/09/2025 11:00 AM EDT Clinical Support [facility] MED & PEDS 505 [place] [address] Nichole Lucio, MONAE 505 [place] [address] 02/16/2025 11:15 AM EDT Office Visit [facility] MEDICINE [address] [place] [address] Sudha Mitchell ANP 230 [place] [address] 03/22/2025 2:00 PM EST Office Visit [facility] MED[facility] [address] [place], [place] [phone] Sudha Mitchell ANP 230 [place], [place] [phone] documented as of this encounter Visit Diagnoses Diagnosis Lumbago of lumbar region with sciatica documented in this encounter Care Teams Log Truck Driver Relationship Specialty Start Date End Date Sudha Mitchell ANP 230 [place], [place] [phone] PCP - General Family Medicine 09/29/19 Everett Rojas MD [address] [place] [address] Drive 3rd [place] [address] Cardiology 04/21/24 documented as of this encounter
--- OUTSIDE RECORDS SUMMARY | 2025-02-05 14:47 | XMS_ITS | Encounter Summary ---
Author Organization [facility] Address [address] [place] [address] Care Team Providers Care Technical Staff Assistant Name Role Phone Darius Tamayo MD Primary Care Provider [phone] Encounter Details Date Type Department Care Team (Late st Contact Info) Description 01/28/2025 Orders Only [facility] Liver Transplant Services [address] [place] [address] Monica Suresh MD [address] [place] [address] Social History Tobacco Use Types Packs/Day Years [...] [facility] 4th floor Cardiology Medicine [address] [place] [address] [phone] Cyber Security Systems Engineer: James Reynoso MD [address] [place] [id number] 03/18/2025 2:00 PM EST Follow-Up [facility] Liver Transplant Services [address] [place], [place] [phone] Lauren Hancock MD 55 [place], [place] [phone] documented as of this encounter Visit Diagnoses Not on filedocumented in this encounter Care Teams Technical Staff Assistant Relationship Specialty Start Date End Date Darius Tamayo MD [address] [place] [address] PCP - General Gastroenterology 12/22/24 documented as of this encounter
--- OUTSIDE RECORDS SUMMARY | 2025-02-05 14:47 | XMS_ITS | Encounter Summary ---
Author Organization [employer] Address [address] [place] [address] 7t [place] [address] Care Team Providers Care Mask Inspector Name Role Phone Stephen Sudha WEI Primary Care Provider [phone] Everett Rojas MD Unavailable [phone] Reason for Visit * Reason Comments Med Refill Encounter Details Date Type Department Care Team ([facility] st Contact Info) Description 12/30/2023 Refill [facility] 230 [place] [address] Fabi Boudreaux MD 230 [place] [address] Lumbago of lumbar region with sciatica Social [...] [facility] MED & PEDS 505 [place] [address] Nichole Lucio, RN 505 [place] [address] 02/16/2025 11:15 AM EDT Office Visit [address] [address] Sudha Mitchell ANP [address] [place] [address] 03/22/2025 2:00 PM EST Office Visit [address] [address] Sudha Mitchell ANP 230 [place] [address] documented as of this encounter Visit Diagnoses Diagnosis Lumbago of lumbar region with sciatica documented in this encounter Care Teams Mask Inspector Relationship Specialty Start Date End Date Sudha Mitchell ANP [address] [place] [address] PCP - General Family Medicine 09/29/19 Everett Rojas MD [address] [place] [address] Drive 3rd [place] [address] Cardiology 04/21/24 documented as of this encounter
--- OUTSIDE RECORDS SUMMARY | 2025-02-05 14:47 | XMS_ITS | Encounter Summary ---
Author Organization [employer] Address [address] [facility] 7t [place] [address] Care Team Providers Care Terrazzo Mechanic Name Role Phone Sudha Mitchell Primary Care Provider [phone] Everett Rojas MD Unavailable [phone] Reason for Visit * Reason Comments Med Refill Encounter Details Date Type Department Care Team ([facility] st Contact Info) Description 10/18/2023 Refill [facility] MED[facility]INE 230 [place] [address] Sudha Mitchell ANP 230 [place] [address] Lumbago of lumbar region with sciatica Social [...] Description 02/09/2025 11:00 AM EDT Clinical Support [facility] MED & PEDS 505 [place] [address] Nichole Lucio, RN 505 [place] [address] 02/16/2025 11:15 AM EDT Office Visit [address] [address] Sudha Mitchell ANP [address] [place] [address] 03/22/2025 2:00 PM EST Office Visit [address] [address] Sudha Mitchell ANP 230 [place] [address] documented as of this encounter Visit Diagnoses Diagnosis Lumbago of lumbar region with sciatica documented in this encounter Care Teams Terrazzo Mechanic Relationship Specialty Start Date End Date Sudha Mitchell ANP [address] [place] [address] PCP - General Family Medicine 09/29/19 Everett Rojas MD [address] [place] [address] Drive 3rd [place] [address] Cardiology 04/21/24 documented as of this encounter
--- OUTSIDE RECORDS SUMMARY | 2025-02-05 14:47 | XMS_ITS | Encounter Summary ---
Author Organization [employer] Address [address] [place] [address] 7t [place] [address] Care Team Providers Care Pipe Layer Helper Name Role Phone Sudha Mitchell Primary Care Provider [phone] Everett Rojas MD Unavailable [phone] Reason for Visit * Reason Comments Med Refill Encounter Details Date Type Department Care Team (Late st Contact Info) Description 01/22/2023 Refill [facility] MED[facility] 230 [place] [address] Sudha Mitchell ANP 230 [place] [address] Lumbago of lumbar region with sciatica Social [...] 02/09/2025 11:00 AM EDT Clinical Support [facility] MED & PEDS 505 [place] [address] Nichole Lucio, RN 505 [place] [address] 02/16/2025 11:15 AM EDT Office Visit [address] [address] Sudha Mitchell ANP [address] [place] [address] 03/22/2025 2:00 PM EST Office Visit [address] [address] Sudha Mitchell ANP [address] [place] [address] documented as of this encounter Visit Diagnoses Diagnosis Lumbago of lumbar region with sciatica documented in this encounter Care Teams Pipe Layer Helper Relationship Specialty Start Date End Date Sudha Mitchell ANP [address] [place] [address] PCP - General Family Medicine 09/29/19 Everett Rojas MD [address] [place] [address] Drive 3rd [place] [address] Cardiology 04/21/24 documented as of this encounter
--- OUTSIDE RECORDS SUMMARY | 2025-02-05 14:47 | XMS_ITS | Encounter Summary ---
Author Organization [employer] Address [address] [place] [address] 7t [place] [address] Care Team Providers Care Rn Night Name Role Phone Sudha Mitchell Primary Care Provider [phone] Everett Rojas MD Unavailable [phone] Reason for Visit * Reason Comments Med Refill Encounter Details Date Type Department Care Team (Late st Contact Info) Description 08/14/2022 Refill [facility] 230 [place] [address] [facility] 230 [place] [address] Lumbago of lumbar region with sciatica Social [...] 11:00 AM EDT Clinical Support [facility] PED[facility] 505 [place] [address] Nichole Lucio, RN 505 [place] [address] 02/16/2025 11:15 AM EDT Office Visit [facility] 230 [place] [address] Sudha Mitchell ANP 230 [place] [address] 03/22/2025 2:00 PM EST Office Visit [facility] [address] [place] [phone] Sudha Mitchell ANP 230 [place] [address] documented as of this encounter Visit Diagnoses Diagnosis Lumbago of lumbar region with sciatica documented in this encounter Care Teams Rn Night Relationship Specialty Start Date End Date [place] [address] PCP - General Family Medicine 09/29/19 Everett Rojas MD [address] [place] [address] 3rd [place] [address] Cardiology 04/21/24 documented as of this encounter
--- OUTSIDE RECORDS SUMMARY | 2025-02-05 14:47 | XMS_ITS | Encounter Summary ---
Author Organization [employer] Address [address] 7t [place] [address] Care Team Providers Care Harvesting Manager Name Role Phone Sudha Mitchell Primary Care Provider [phone] Everett Rojas MD Unavailable [phone] Reason for Visit * Reason Comments Med Refill Encounter Details Date Type Department Care Team ([facility] st Contact Info) Description 02/20/2024 Refill [facility] [address] [place] [address] Sudha Mitchell ANP [address] [place] [address] Lumbago of lumbar region with sciatica Social [...] [facility] MED & PEDS 505 [place] [address] Nichole Lucio RN 505 [place] [address] 02/16/2025 11:15 AM EDT Office Visit [facility] MEDICINE [address] [place] [address] Sudha Mitchell ANP [address] [place] [address] 03/22/2025 2:00 PM EST Office Visit [address] [address] Sudha Mitchell ANP [address] [place] [address] documented as of this encounter Visit Diagnoses Diagnosis Lumbago of lumbar region with sciatica documented in this encounter Care Teams Harvesting Manager Relationship Specialty Start Date End Date Sudha Mitchell ANP [address] [place] [address] PCP - General Family Medicine 09/29/19 Everett Rojas MD [address] 3rd [place] [address] Cardiology 04/21/24 documented as of this encounter
--- OUTSIDE RECORDS SUMMARY | 2025-02-05 14:47 | XMS_ITS | Encounter Summary ---
Author Organization [employer] Address [address] [facility] 7t [place] [address] Care Team Providers Care Commutator Assembler Name Role Phone Sudha Mitchell Primary Care Provider [phone] Everett Rojas MD Unavailable [phone] Reason for Visit * Reason Onset Date Comments Pre-op Visit 12/20/2023 Encounter Details Date Type Department Care Team ([facility] st Contact Info) Description 12/20/2023 Telephone [facility] MEDICINE 230 [place] [address] Sudha Mitchell ANP 230 [place] [address] Pre-op Visit Social History Tobacco Use Types [...] [facility] Surgeon's office number: [phone] Ext [phone] Surgeon's office fax number: [phone] Contact name: Mara Last office note from surgeon requested: Yes documented in this encounter Plan of Treatment Upcoming Encounters Date Type Department Care Team (Late st Contact Info) Description 02/09/2025 11:00 AM EDT Clinical Support [facility] MED & PEDS 505 [place] [address] Nichole Lucio, MONAE 505 [place] [address] 02/16/2025 11:15 AM EDT Office Visit [facility] MEDICINE 230 [place] [address] Sudha Mitchell, ANP 230 [place] [address] 03/22/2025 2:00 PM EST Office Visit [facility] MED[facility] 230 [place], [place] [phone] Sudha Mitchell ANP 230 [place] [address] documented as of this encounter Visit Diagnoses Not on filedocumented in this encounter Care Teams Commutator Assembler Relationship Specialty Start Date End Date Sudha Mitchell ANP 230 [place], [place] [phone] PCP - General Family Medicine 09/29/19 Everett Rojas MD [address] [place] [address] 3rd [place] [address] Cardiology 04/21/24 documented as of this encounter
--- OUTSIDE RECORDS SUMMARY | 2025-02-05 14:47 | XMS_ITS | Encounter Summary ---
Author Organization [employer] Address [address] [place] [address] 7t [place] [address] Care Team Providers Care Package Checker Name Role Phone Sudha Mitchell Primary Care Provider [phone] Everett Rojas MD Unavailable [phone] Reason for Visit * Reason Onset Date Comments Med Refill 11/23/2022 Encounter Details Date Type Department Care Team (Late st Contact Info) Description 11/23/2022 Telephone [facility] MEDICINE 230 [place] [address] Sudha Mitchell ANP 230 [place] [address] Med Refill Social History Tobacco Use Types [...] Description 02/09/2025 11:00 AM EDT Clinical Support [facility] MED & PEDS 505 [place] [address] Nichole Lucio, RN 505 [place], [place] 02/16/2025 11:15 AM EDT Office Visit [address] [address] Sudha Mitchell ANP [address] [place] [address] 03/22/2025 2:00 PM EST Office Visit [address] [address] Sudha Mitchell ANP [address] [place] [address] documented as of this encounter Visit Diagnoses Not on filedocumented in this encounter Care Teams Package Checker Relationship Specialty Start Date End Date Sudha Mitchell ANP [address] [place] [address] PCP - General Family Medicine 09/29/19 Everett Rojas MD [address] [place] [address] 3rd [place] [address] Cardiology 04/21/24 documented as of this encounter
--- OUTSIDE RECORDS SUMMARY | 2025-02-05 14:47 | XMS_ITS | Encounter Summary ---
Author Organization [employer] Address [address] [place] [address] 7t [place] [address] Care Team Providers Care Instrument Specialist Name Role Phone Sudha Mitchell Primary Care Provider [phone] Everett Rojas MD Unavailable [phone] Reason for Visit * Reason Comments Med Refill Encounter Details Date Type Department Care Team (Late st Contact Info) Description 05/02/2022 Refill [facility] MED & PEDS 505 [place] [address] Sudha Mitchell ANP 230 [place] [address] Cervicalgia Social History Tobacco Use Types Packs/Day [...] [facility] 505 [place] [address] Nichole Lucio, MONAE 505 [place], [place] 02/16/2025 11:15 AM EDT Office Visit [facility] MED[facility]INE 230 [place] [address] Sudha Mitchell ANP 230 [place] [address] 03/22/2025 2:00 PM EST Office Visit [facility] MED[facility]INE [address] [place] [address] [phone] Sudha Mitchell ANP [address] [place] [address] [phone] documented as of this encounter Visit Diagnoses Diagnosis Cervicalgia documented in this encounter Care Teams Instrument Specialist Relationship Specialty Start Date End Date Sudha Mitchell ANP [address] [place] [address] PCP - General Family Medicine 09/29/19 Everett Rojas MD [address] [place] [address] 3rd [place] [address] Cardiology 04/21/24 documented as of this encounter
--- OUTSIDE RECORDS SUMMARY | 2025-02-05 14:47 | XMS_ITS | Encounter Summary ---
Author Organization [employer] Address [address] [place] [address] Care Team Providers Care Environmental Education Specialist Name Role Phone Sudha Mitchell Primary Care Provider Everett Rojas MD Unavailable [phone] Reason for Visit * Reason Comments Med Refill Encounter Details Date Type Department Care Team ([facility] st Contact Info) Description 09/18/2023 Refill C [facility] [address] [place] [address] Sudha Mitchell ANP [address] [place] [address] Lumbago of lumbar region with sciatica Social [...] Description 02/09/2025 11:00 AM EDT Clinical Support [facility] [address] [place] [address] Nichole Lucio, RN [address] [place] [address] 02/16/2025 11:15 AM EDT Office Visit [address] [address] Sudha Mitchell ANP [address] [place] [id number] 03/22/2025 2:00 PM EST Office Visit [address] [address] Sudha Mitchell ANP [address] [place] [phone] documented as of this encounter Visit Diagnoses Diagnosis Lumbago of lumbar region with sciatica documented in this encounter Care Teams Environmental Education Specialist Relationship Specialty Start Date End Date Sudha Mitchell ANP [address] [place] [id number] PCP - General Family Medicine 09/29/19 Everett Rojas MD [address] [place] [address] [address] [place] [address] Cardiology 04/21/24 documented as of this encounter
--- OUTSIDE RECORDS SUMMARY | 2025-02-05 14:48 | XMS_ITS | Clinical Summary ---
Author Organization [facility] Address [address] [place] [address] Care Team Providers Care Sprayer Leather Name Role Phone Darius Tamayo MD Primary Care Provider [phone] Allergies Active Allergy Reactions Criticality Noted Date [...] once a day. 30 tablet 11 12/26/19 026 Active zinc sulfate (ZINCATE) 50 mg zinc (220 mg) capsule Take 1 capsule (50 mg of elemental zinc total) by mouth once a day. 30 capsule 12/26/19 25 025 Discontinued Encounters Date Type Department Care Team Description 01/28/2025 Orders Only [facility] [address] [place] [address] 56931 Monica Suresh MD 01/22/2025 Refill [facility] [address] [place] [address] 09699 Lauren Hancock MD 01/20/2025 Refill [facility] [address] [place] [address] 07928 Lauren Hancock MD 01/18/2025 Telephone [facility] Transplant Department [address] [place] [address] 52709 Sabrina Dahl RN Care Coordination 01/15/2025 3:15 PM EDT Office Visit [facility] [address] [place] [address] 28560 Nikko Pagan MD 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); Chronic hepatitis C with cirrhosis (HCC); Portal hypertension (HCC); HCC (hepatocellular carcinoma) (HCC); Atrial fib/flutter, transient (HCC) 01/15/2025 2:30 PM EDT Office Visit [facility] [address] [place] [address] 79764 Shaila Posey MD Encounter for pre-transplant evaluation for chronic liver disease (Primary Dx); Metabolic dysfunction-associate d steatohepatitis (MASH); Hepatocellular carcinoma (HCC); Chronic hepatitis C without hepatic coma (HCC); Screening examination for infectious disease; Positive CMV IgG serology; EBV seropositivity; Immune to hepatitis B; Immune to hepatitis A 01/15/2025 1:45 PM EDT Nutrition [facility] [address] [place] [address] Encounter for pre-transplant evaluation for liver transplant (Primary Dx) 01/15/2025 1:00 PM EDT Office Visit [facility] [address] [place] [address] 97794 Mihai Blank MD Encounter for pre-transplant evaluation for chronic liver disease (Primary Dx) 01/15/2025 12:15 PM EDT Social Work [facility] [address] [place] [address] 57277 Sandra Mcgregor WATCH DIAL MAKER 01/15/2025 11:45 AM EDT Office Visit [facility] [address] [place] [address] 32062 Da Robb, MONAE Encounter for pre-transplant evaluation for liver transplant 01/15/2025 10:30 AM EDT - 01/15/2025 11:59 PM EDT Hospital Encounter [facility] Building Cardiac Ultrasound [address] [place] [address] 8[address] Encounter for pre-transplant evaluation for liver transplant Discharge Disposition: Home or Self Care (01) 01/15/2025 Orders Only [facility] Transplant Department [address] [place] [address] 12372 Sabrina Dahl, RN Encounter for pre-transplant evaluation for liver transplant (Primary Dx) 01/07/2025 Orders Only [facility] Transplant Department [address] [place] [address] 17496 Nanette Bowen, MONAE Encounter for pre-transplant evaluation for liver transplant (Primary Dx); Pre-procedural cardiovascular examination; Mild CAD; Coronary artery calcification seen on CT scan 01/07/2025 Results Follow-Up [facility] [address] [place] [address] 20721 Head Orthopedic Team Physician: Lauren Hernandez MD 01/06/2025 12:18 PM EDT - 01/06/2025 11:59 PM EDT Hospital Encounter [facility] [address] [place] [address] Lauren Hancock MD Encounter for pre-transplant evaluation for liver transplant; Metabolic dysfunction-associate d steatohepatitis (MASH) Discharge Disposition: Home or Self Care (01) 12/25/2024 Results Follow-Up [facility] [address] [place] [address] 01504 Sabrina Dahl RN 12/22/2024 1:00 PM EDT Office Visit [facility] [address] [place] [address] 41386 Lauren Hancock MD Hepatocellular carcinoma (HCC) (Primary Dx); Metabolic dysfunction-associate d steatohepatitis (MASH); Chronic hepatitis C without hepatic coma (HCC); 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) 12/22/2024 12:00 PM EDT Evaluation [facility] [address] [place] [address] 75826 Sabrina Dahl, RN Encounter for pre-transplant evaluation for liver transplant (Primary Dx) 12/22/2024 Education [facility] Transplant Department [address] [place] [address] 11708 Sabrina Dahl RN 12/22/2024 Orders Only [facility] Trans[facility] [address] [place] [address] 98741 Sabrina Dahl, RN Encounter for pre-transplant evaluation for liver transplant (Primary Dx); Metabolic dysfunction-associate d steatohepatitis (MASH) 12/22/2024 Orders Only [facility] Trans[facility] Department [address] [place] [address] 21777 Sabrina Dahl, RN Encounter for pre-transplant evaluation for liver transplant (Primary Dx) 12/02/2024 Telephone [facility] Transplant Department [address] [place] [address] Sabrina Dahl RN 12/02/2024 Orders Only [facility] Trans[facility] Department [address] [place] [address] 75171 Provider, MD Cem 12/01/2024 Orders Only [facility] Trans[facility] Department [address] [place] [address] 16051 Provider, MD Cem from Last 3 Months [...] Description 02/12/2025 11:00 AM EDT Office Visit [facility] Building 4th floor Cardiology Medicine [address] [place] [address] 50936 Head Orthopedic Team Physician: James Reynoso, MD [address] [place] [address] 03/18/2025 2:00 PM EST Follow-Up [facility] [address] [place] [address] Lauren Hancock MD [address] [place] [address] Health Maintenance Due Date Last Done Comments [...] Completed 06/09/2024, 2024 Alcohol/Substance Use Screening Completed 5 Procedures * Due to [place] state law, this organization might not be [...] Encounter for pre-transplant evaluation for liver transplant HTFTW-9-OIFJXXOCYOX (AAT) PHENOTYPE Routine 12/22/2024 2:14 PM EDT Encounter for pre-transplant evaluation for liver transplant HEPATOCELLULAR CARCINOMA PANEL -[id number] Routine 12/22/2024 2:14 PM EDT Encounter for pre-transplant evaluation for liver transplant STEPHON SCREEN, IFA, W/REFLEX TO TITER & PATTERN Routine 12/22/2024 2:14 PM EDT Encounter for pre-transplant evaluation for liver transplant BILIRUBIN, DIRECT Routine 12/22/2024 2:1 4 PM EDT Encounter for pre-transplant evaluation for liver transplant CYSTATIN C WITH GLOMERULAR FILTRATION RATE, ESTIMATED (EGFR)-[id number] Routine 12/22/2024 2:14 PM EDT Encounter for [...] for pre-transplant evaluation for liver transplant PHOSPHATIDYLETHANOL-AR [id number] Routine 12/22/2024 2:14 PM EDT Encounter for [...] for liver transplant QUANTIFERON-TB GOLD PLUS, 1 [id number] Routine 12/22/2024 2:14 PM EDT Encounter for pre-transplant evaluation for liver transplant HIV-1/2 ANTIGEN/ANTIBODIES 4TH GENERATION W/REFLEX Routine 12/22/2024 2:14 PM EDT Encounter for pre-transplant evaluation for liver transplant RPR (DIAGNOSIS) W/REFLEX TO TITER & TPPA [id number] Routine 12/22/2024 2:14 PM EDT Encounter for [...] for pre-transplant evaluation for liver transplant ZINC, PLASMA/[id number] Routine 12/22/2024 2:14 PM EDT Encounter for pre-transplant evaluation for liver transplant IMAGING - SCANNED Routine 11/19/2024 4:5 0 PM EDT from Last 3 Months Results * Due to [place] state law, this organization might not be sharing negative HIV tests. * ECG 12 lead (01/15/2025 1:32 PM EDT) Ventricular Rate EKG 55 BPM MUSE EKG Atrial Rate 55 BPM MUSE EKG FL Interval 152 ms MUSE EKG QRS Interval 92 ms MUSE EKG QT Interval 432 ms MUSE EKG QTC Interval 413 ms MUSE EKG P [place] 51 degrees MUSE EKG R [place] 21 degrees MUSE EKG T Wave [place] 1 degrees MUSE EKG 01/15/2025 1:32 PM EDT 01/19/2025 10:59 PM EDT Impressions MUSE EKG - 01/19/2025 10:59 PM EDT POOR DATA QUALITY, INTERPRETATION MAY BE ADVERSELY AFFECTED SINUS BRADYCARDIA with pvcs and fusion complexes OTHERWISE NORMAL ECG NO PREVIOUS ECGS AVAILABLE Confirmed by Oswaldo Landa ([id number]) on 01/19/2025 10:59:21 PM Narrative Procedure Note Oswaldo Landa MD - 01/19/2025 IMPRESSION: POOR DATA QUALITY, INTERPRETATION MAY BE ADVERSELY AFFECTED SINUS BRADYCARDIA with pvcs and fusion complexes OTHERWISE NORMAL ECG NO PREVIOUS ECGS AVAILABLE Confirmed by Oswaldo Landa ([id number]) on 01/19/2025 10:59:21 PM us Lauren Hancock MD ECG ORDERABLES Final Re [...] Doppler. Myocardial deformation imaging was performed using [email or web address] [place]. During the study the apical, [...] cancer. For comments and reference, please see [https://doi.org/10.1148/radiol.2265707582]. For information about nodule measurements and reporting, please see [https://pubs.rsna.org/doi/10.1148/radiol.1129167364]. I, Mike Riley, have reviewed the examination and concur with the findings as reported or so edited. Trainee: Kojo Nevarez If this radiology report contains a blank impression section, it is an incomplete radiology report. Please contact the interpreting radiologist or applicable radiology division as soon as possible to obtain the completed interpretation. Workstation ID: [id number] Narrative 01/07/2025 5:[address] CARDIAC [...] will not be ordered. Resulting Agency Comment [id number] Procedure Note Mike Riley MD - 01/07/2025 CT CARDIAC CORONARY AND CALCIUM SCORING, CT LIMITED FOLLOW UP [facility] Indication: CAD screening, intermediate CAD risk, not treadmill qcvhzcyedG03.818 - I10 - Encounter for other preprocedural [...] lung cancer. For comments and reference, please see[https://doi.org/10.1148/radiol.8134129740]. For information about nodulemeasurements and reporting, please see[https://pubs.rsna.org/doi/10.1148/radiol.8538957117]. I, Mike Riley, have reviewed the examination and concur with thefindings as reported or so edited. Trainee: Kojo Nevarez If this radiology report contains a blank impression section, it is anincomplete radiology report. Please contact the interpreting radiologistor applicable radiology division as soon as possible to obtain thecompleted interpretation. Workstation ID: [id number] Lauren Hancock MD IMG CT PROCEDURES Final [...] cancer. For comments and reference, please see [https://doi.org/10.1148/radiol.8900445551]. For information about nodule measurements and reporting, please see [https://pubs.rsna.org/doi/10.1148/radiol.5866053476]. I, Mike Riley, have reviewed the examination and concur with the findings as reported or so edited. Trainee: Kojo Nevarez If this radiology report contains a blank impression section, it is an incomplete radiology report. Please contact the interpreting radiologist or applicable radiology division as soon as possible to obtain the completed interpretation. Workstation ID: [id number] Narrative 01/07/2025 5:[address] CARDIAC [...] will not be ordered. Resulting Agency Comment [id number] Procedure Note Mike Riley MD - 01/07/2025 CT CARDIAC CORONARY AND CALCIUM SCORING, CT LIMITED FOLLOW UP [facility] Indication: CAD screening, intermediate CAD risk, not treadmill gepyedrzxU26.818 - I10 - Encounter for other preprocedural [...] lung cancer. For comments and reference, please see[https://doi.org/10.1148/radiol.2409877702]. For information about nodulemeasurements and reporting, please see[https://pubs.rsna.org/doi/10.1148/radiol.4237454390]. I, Mike Riley, have reviewed the examination and concur with thefindings as reported or so edited. Trainee: Kojo Nevarez If this radiology report contains a blank impression section, it is anincomplete radiology report. Please contact the interpreting radiologistor applicable radiology division as soon as possible to obtain thecompleted interpretation. Workstation ID: [id number] us Lauren Hancock MD IM CT PROCEDURES Final Result * Comprehensive Drug Panel, Urine (12/22/2024 2:34 PM EDT) [facility] Comprehensive Drug Screen Urine DRUGS DETECTED 12/22/2024 9:16 PM EDT [facility] Comment: CAFFEINE METOPROLOL Urine Voided urine specimen / Unknown Non-Blood Collection / Unknown 12/22/2024 2:34 PM EDT 12/22/2024 2:42 PM EDT [facility] - 12/22/2024 9:16 PM EDT [facility] Received Date: us Lauren Hancock MD LAB URINE ORDERABLES Fin al Result [facility] [address] [facility] 3rd Floor, [place] [address], [place] [phone] [facility] [employer] [facility] [address], [place] [address], [place] [phone] * (ABNORMAL) Cystatin C with Glomerular Filtration Rate, Estimated (eGFR) (12/22/2024 2:14 PM EDT) Cystatin C 1.58(H) 0.52 - 1.10 mg/L 12/24/2024 12:17 PM EDT [facility] ([place]) eGFR Non- 38(L) >=60 NA 12/24/2024 12:17 PM EDT [facility] Comment: REFERENCE RANGE:>=60 mL/min/1.73mE2 Blood Structure of peripheral vein / Unknown Venipuncture / Unknown 12/22/2024 2:14 PM EDT 12/22/2024 2:53 PM EDT Narrative [facility] - 12/24/2024 12:17 PM EDT [facility] Received Date: us Lauren Hancock MD LAB BLOOD ORDERABLES Fin al Result [facility]) [address] [place], [place] , [place] * (ABNORMAL) Hepatocellular Carcinoma Panel (Includes AFP, AFP-L3 & DCP) (12/22/2024 2:14 PM EDT) AFP 31.3(H) 1.6 - 4.5 ng/mL 12/29/2024 6:23 PM EDT [facility] AFP-L3 3.9 0.5 - 9.9 % 12/29/2024 6:23 PM EDT [facility] [place] Comment: The micro-total analysis system (M-DISC) employs microchip capillary electrophoresis to quantitatively measure AFP and AFP-L3% by immunochemical techniques. The assay principle involves DNA-coupled antibodies and dye labeled antibodies, which react with proteins in liquid phase within the microchannels. Both analytes are quantified using laser-induced fluorescence. Instrument and associated reagents are supplied by [employer] [place], [place], [place]. Patients with elevated AFP-L3% values (>=10%) [...] can potentially cause an anomalous result. The [employer] System has been formulated to minimize the [...] or kits cannot be used interchangeably. DCP (Ysf-Gieqs-Mwdaqjd- Prothrombin) 0.2 <7.5 ng/mL 12/29/2024 6:23 PM EDT [facility]N [employer] [facility] Comment: The M-DISC DCP Immunological Test System is a clinical device used to quantitatively measure, by immunochemical technique, jvf-tbvsa-mfqkigi-prothrombin (DCP) in serum. The assay uses DNA-coupled antibodies and dye labeled antibodies, which react with proteins in liquid phase within the microchannels. Both analytes are quantified using laser-induced fluorescence. Instrument and associated reagents are supplied by [employer] [place], [place], [place]. DCP levels increase in patients with [...] interference potentially causing an anomalous result. The M-DISC DCP has been formulated to minimize the [...] 2:14 PM EDT 12/22/2024 2:52 PM EDT [facility] 12/29/2024 6:23 PM EDT [facility] Received Date: Lauren Hancock MD LAB BLOOD ORDERABLES Fin al Result [facility] [address], [address] [place] [address], [place] [phone] [facility] [facility] [address] [place] [address], [place] [phone] * Phosphatidylethanol (PEth) (12/22/2024 2:14 PM EDT) PEth 16:0/18:1 (POPEth) <10 ng/mL 12/24/2024 2:50 PM EDT [facility] Comment: PEth 16:0/18:1 (POPEth) Less than [...] LABORATORY Comment: Authorized individuals can access the [facility] Enhanced Report with an [employer] Connect account using the following link. Your local lab can assist you in obtaining the patient report if you don't have a Connect account. [email or web address] PEth Interpretation See Comment 12/11 2:50 PM EDT [facility] Comment: Phosphatidylethanol (PEth) is a group [...] developed and its performance characteristics determined by [facility]. It has not been cleared or approved by the U.S. Food and Drug Administration. This test was performed in a CLIA-certified laboratory and is intended for clinical purposes. Performed By: [facility] [address] [place] [address] [employer] Manager: Dennis Landry MD, PhD CLIA Number: [id number] Blood Structure of peripheral vein / Unknown Venipuncture / Unknown 12/22/2024 2:14 PM EDT 12/22/2024 2:51 PM EDT Lauren Hancock MD LAB BLOOD ORDERABLES Fin al Result [employer] [address], * Rsqsf-1-Ykdrfpupgzk (AAT) Phenotype (12/22/2024 2:14 PM EDT) Alpha 1 Antitrypsin Phenotype SEE NOTE 12/28/2024 6:17 PM EDT [email or web address] Comment: THIS PATIENT'S JSYSP-2-WZWAZJMKVCN PHENOTYPE IS PI*MM. 90% of normal individuals have the MM phenotype, with normal quantitative AAT levels. Many phenotypic patterns have been described, including deficiency states with F, S, Z, or other alleles. As a general estimation, compared to M allele of 100% of normal W-1-Ltzxmxgsdlh protein, the S allele produces approximately 60% and the Z allele 20%. For example, an MS phenotype would have about 80% of normal U-2-Odqakyhnhog protein level, a 50% contribution from the M allele and 30% from the S allele. A ZZ phenotype would have about 20% of normal levels, a 10% contribution from each Z gene. The F allele has normal D-1-Mfzhrsvkqif levels, but the kinetics of elastase inhibition [...] EDT 12/22/2024 2:51 PM EDT Narrative [facility] - 12/28/2024 6:17 PM EDT [facility] Received Date:[id number] Lauren Hancock MD LAB BLOOD ORDERABLES Fin al Result [facility] [address] [facility] 3rd Floor, [place] [address], [place] [phone] [email or web address] [facility] [address] [place] [address], [place] [phone] * MMR Panel, IgG (12/22/2024 2:14 PM EDT) Measles Antibody (IgG), Immune Status >300.00 AU/mL 12/23/2024 5:57 AM EDT [email or web address] [facility] Comment: AU/mL Interpretation ----- <13.50 Not consistent with immunity 13.50-16.49 Equivocal >16.49 Consistent with immunity The presence of measles IgG suggests immunization or past or current infection with measles virus. For additional information, please refer to http://[employer]/faq/RPL564 (This link is being provided for informational/ educational purposes only.) Mumps Antibody (IgG), Immune Status >300.00 AU/mL 12/23/2024 5:57 AM EDT [facility] Comment: AU/mL Interpretation ------- <9.00 Not consistent with immunity 9.00-10.99 Equivocal >10.99 Consistent with immunity The presence of mumps IgG antibody suggests immunization or past or current infection with mumps virus. Rubella Antibody (IgG), Immune Status 5.07 Index 12/23/2024 5:57 AM EDT [facility] Comment: Index Interpretation ----- <0.90 Not consistent with immunity 0.90-0.99 Equivocal > or = 1.00 Consistent with immunity The presence of rubella IgG antibody suggests immunization or past or current infection with rubella virus. Blood Structure of peripheral vein / Unknown Venipuncture / Unknown 12/22/2024 2:14 PM EDT 12/22/2024 2:52 PM EDT Narrative [facility] - 12/23/2024 5:57 AM EDT [facility] Received Date: us Lauren Hancock MD LAB BLOOD ORDERABLES Fin al Result [facility] [address] [facility] 3rd Floor, [place] [address], [place] [phone] [facility] [address] [facility] [address] [facility], [place] [address], [place] [phone] * (ABNORMAL) Herpes Simplex Virus 1&2, IgG (12/22/2024 2:14 PM EDT) Pathologist [facility] HSV 1 IgG Type Specific Ab 46.90(H) index 12/23/2024 3:42 AM EDT [email or web address] [facility] HSV 2 IgG Type Specific Ab <0.90 index 12/23/2024 3:42 AM EDT [email or web address] [facility] Comment: Index Interpretation ----- <0.90 Negative [...] screening. For additional information, please refer to http://education.[employer]/faq/ZPG194 (This link is being provided for informational/ educational purposes only.) Blood Structure of peripheral vein / Unknown Venipuncture / Unknown 12/22/2024 2:14 PM EDT 12/22/2024 2:50 PM EDT Narrative [facility] - 12/23/2024 3:42 AM EDT [facility] Received Date: Lauren Hancock MD LAB BLOOD ORDERABLES Fin al Result [facility] [address] [facility] [address]rd Floor, [place] [address], [email or web address] [facility] [address] [facility] [address]rd Floor, [place] [address], * (ABNORMAL) Protein Electrophoresis w/Reflex to Immunofixation, Serum (12/22/2024 2:14 PM EDT) [facility] Protein, Total 7.6 6.1 - 8.1 g/dL 12/23/2024 10:54 PM EDT [email or web address] [facility] Albumin 3.8 3.8 - 4.8 g/dL 12/23/2024 10:54 PM EDT [email or web address] [facility] Alpha 1 Globulin 0.4(H) 0.2 - 0.3 g/dL 12/23/2024 10:54 PM EDT [email or web address] [facility] Alpha 2 Globulin 0.9 0.5 - 0.9 g/dL 12/23/2024 10:54 PM EDT [email or web address] [facility] Beta 1 Globulin 0.5 0.4 - 0.6 g/dL 12/23/2024 10:54 PM EDT [email or web address] [facility] Beta 2 Globulin 0.5 0.2 - 0.5 g/dL 12/23/2024 10:54 PM EDT [email or web address] [facility] Gamma Globulin 1.5 0.8 - 1.7 g/dL 12/23/2024 10:54 PM EDT [email or web address] [facility] Interpretation See Comments 12/23/2024 10:54 PM EDT [email or web address] [facility] Comment: Alpha-1 globulin increase noted. Blood Structure of peripheral vein / Unknown Venipuncture / Unknown 12/22/2024 2:14 PM EDT 12/22/2024 2:50 PM EDT Narrative [facility] - 12/23/2024 10:54 PM EDT [facility] Received Date: Lauren Hancock MD LAB BLOOD ORDERABLES Fin al Result [facility] [address], [place] [address], [email or web address] [facility] [address], [place] [address], * RPR (Diagnosis) w/Reflex to Titer & TPPA Confirm (12/22/2024 2:14 PM EDT) RPR W/Refl Titer NON-REACT DEREJE NON-REACT DEREJE 12/23/2024 11:34 AM EDT [email or web address] [facility] Blood Structure of peripheral vein / Unknown Venipuncture / Unknown 12/22/2024 2:14 PM EDT 12/22/2024 2:51 PM EDT Narrative [facility] - 12/23/2024 11:34 AM EDT [facility] Received Date: us Lauren Hancock MD LAB BLOOD ORDERABLES Fin al Result [facility] [place] [address] [facility] [address]rd Floor, [place] [address], [place] [phone] [email or web address] [facility] [address] [facility] [address]rd [address], [place] [address], [place] [phone] * (ABNORMAL) Iron Saturation (12/22/2024 2:14 PM EDT) Iron Saturation 19(L) 20 - 50 % 3:36 PM EDT [facility] Iron 59 30 - 160 ug/dL 12/22/2024 3:36 PM EDT [facility] Transferrin 252 200 - 360 mg/dL 12/22/2024 3:36 PM EDT [facility] Total Iron Binding Capacity 315 255 - 450 ug/dL 12/22/2024 3:36 PM EDT [facility] Blood Structure of peripheral vein / Unknown Venipuncture / Unknown 12/22/2024 2:14 PM EDT 12/22/2024 2:51 PM EDT us Lauren Hancock MD LAB BLOOD ORDERABLES Fin al Result [facility] [address] [place] [address], * TSH Reflex Free T4 (12/22/2024 2:14 PM EDT) TSH 3.360 0.280 - 3.890 uIU/mL 12/22/2024 3:36 PM EDT [facility] Comment: Females: 1st trimester 0.150-4.000 IU/mL 2nd trimester 0.310-4.170 IU/mL 3rd trimester 0.380-4.150 IU/mL Blood Structure of peripheral vein / Unknown Venipuncture / Unknown 12/22/2024 2:14 PM EDT 12/22/2024 2:51 PM EDT Lauren Hancock MD LAB BLOOD ORDERABLES Fin al Result [facility] [address] [place] [address], * QuantiFERON-TB Gold Plus, 1 Tube (12/22/2024 2:14 PM EDT) Pathologist [facility] QuantiFERON-TB Gold Plus NEGATIVE NEGATIVE 12/24/2024 3:33 PM EDT [email or web address] Comment: Negative test result. M. tuberculosis complex infection unlikely. NIL 0.02 IU/mL 12/24/2024 3:33 PM EDT [email or web address] [facility] Mitogen-NIL 6.90 IU/mL 12/24/2024 3:33 PM EDT [email or web address] [facility] TB1-NIL 0.00 IU/mL 12/24/2024 3:33 PM EDT [email or web address] [facility] TB2-NIL 0.00 IU/mL 12/24/2024 3:33 PM EDT [email or web address] [facility] Comment: The Nil tube value reflects [...] T-lymphocytes. For additional information, please refer to https://education.The App3/faq/YWK780 (This link is being provided for informational/ educational purposes only.) Blood Structure of peripheral vein / Unknown Venipuncture / Unknown 12/22/2024 2:14 PM EDT 12/22/2024 2:42 PM EDT [facility]ative [facility] - 12/24/2024 3:33 PM EDT [facility] Received Date:[id number] Lauren Hancock MD LAB BLOOD ORDERABLES Fin al Result [place] [place] [address] [facility] 3rd Floor, [place] [address], [place] [phone] [email or web address] [facility] 200 [facility] 3rd Floor, [place] [address], * (ABNORMAL) CBC Auto Differential (12/22/2024 2:14 PM EDT) WBC 4.9 3.8 - 10.8 10*3/uL 12/22/2024 3:21 PM EDT [facility] RBC 4.19 3.80 - 5.10 10*6/uL 12/22/2024 3:21 PM EDT [facility] Hemoglobin 12.1 11.7 - 15.5 g/dL 12/22/2024 3:21 PM EDT [facility] Hematocrit 37.6 35.0 - 45.0 % 12/22/2024 3:21 PM EDT [facility] MCV 89.7 80.0 - 100.0 fL 12/22/2024 3:21 PM EDT [facility] MCH 28.9 27.0 - 33.0 pg 12/22/2024 3:21 PM EDT [facility] MCHC 32.2 32.0 - 36.0 g/dL 12/22/2024 3:21 PM EDT [facility] RDW 14.8 11.0 - 15.0 % 12/22/2024 3:21 PM EDT [facility] Platelets 113(L) 140 - 400 10*3/uL 12/22/2024 3:21 PM EDT [facility] MPV 12/22/2024 3:21 PM EDT [facility] Comment:Test not performed. Neutrophil % 68.8 % 12/22/2024 3:21 PM EDT [facility] Immature Grans % 0.2 0.0 - 0.9 % 12/22/2024 3:21 PM EDT [facility] Lymphocyte % 18.9 % 12/22/2024 3:21 PM EDT [facility] Monocyte % 8.8 % 12/22/2024 3:21 PM EDT [facility] Eosinophil % 2.9 % 12/22/2024 3:21 PM EDT [facility] Basophil % 0.4 % 12/22/2024 3:21 PM EDT [facility] Neutrophil # 3.36 1.50 - 7.80 10*3/uL 12/22/2024 3:21 PM EDT [facility] Immature Grans # <0.03 <=0.03 10*3/uL 12/22/2024 3:21 PM EDT [facility] Lymphocyte # 0.90 0.85 - 3.90 10*3/uL 12/22/2024 3:21 PM EDT [facility] Monocyte # 0.40 0.20 - 0.95 10*3/uL 12/22/2024 3:21 PM EDT [facility] Eosinophil # 0.10 0.02 - 0.50 10*3/uL 12/22/2024 3:21 PM EDT [facility] Basophil # <0.03 0.00 - 0.20 10*3/uL 12/22/2024 3:21 PM EDT [facility] nRBC % 0.0 /100 WBCs 12/22/2024 3:[address] [facility] nRBC # <0.01 <0.01 10*3/uL 12/22/2024 3:21 PM EDT [facility] Blood Structure of peripheral vein / Unknown Venipuncture / Unknown 12/22/2024 2:14 PM EDT 12/22/2024 2:53 PM EDT us Lauren Hancock MD LAB BLOOD ORDERABLES Fin al Result [facility] [address] [place] [address], * Smooth Muscle Antibody Screen w/Reflex to Titer (12/22/2024 2:14 PM EDT) Pathologist [facility] Smooth Muscle AB Screen NEGATIVE NEGATIVE 12/25/2024 12:24 PM EDT [facility] Blood Structure of peripheral vein / Unknown Venipuncture / Unknown 12/22/2024 2:14 PM EDT 12/22/2024 2:51 PM EDT Narrative [facility] 12/25/2024 12:24 PM EDT [facility] Received Date:[id number] us Lauren Hancock MD LAB BLOOD ORDERABLES Fin al Result Performing Organization Address City/[facility]/ZIP Co de Phone Number [place] [address] [facility] 3rd Floor, [place] [address], [email or web address] [facility] [address] [facility] 3rd Floor, [place] [address], [place] [phone] * (ABNORMAL) Hepatitis C Antibody w/Reflex to PCR (12/22/2024 2:14 PM EDT) Hepatitis C Antibody REACTIVE( A) NON-REACT DEREJE 12/22/2024 10:35 PM EDT [facility] Comment: Based on this result, the sample will be tested for HCV RNA by a Nucleic Acid Amplification Test (NAAT) to determine if the patient has a current active infection. Blood Structure of peripheral vein / Unknown Venipuncture / Unknown 12/22/2024 2:14 PM EDT 12/22/2024 2:51 PM EDT [facility] 12/22/2024 10:35 PM EDT [facility] Received Date:[id number] us Lauren Hancock MD LAB BLOOD ORDERABLES Fin al Result [place] [address], [place] [address], [place] [phone] [email or web address] [facility] [address], [place] [address], [place] [phone] * (ABNORMAL) Hepatitis A Antibody, Total (12/22/2024 2:14 PM EDT) Hepatitis A Ab, Total REACTIVE( A) NON-REACT DEREJE 12/22/2024 10:28 PM EDT [email or web address] [facility] Comment: For additional information, please refer to http://education.The App3/faq/VKS348 (This link is being provided for informational/ educational purposes only.) Blood Structure of peripheral vein / Unknown Venipuncture / Unknown 12/22/2024 2:14 PM EDT 12/22/2024 2:51 PM EDT Narrative [facility] - 12/22/2024 10:28 PM EDT [facility] Received Date:[id number] us Lauren Hancock MD LAB BLOOD ORDERABLES Fin al Result Performing Organization Address City/[facility]/ZIP Co de Phone Number [place] 200 [facility] 3rd Floor, [place] [address], [place] [phone] [email or web address] [facility] [address], [place] [address], [place] [phone] * STEPHON Screen, Reflex to Titer, IFA (12/22/2024 2:14 PM EDT) STEPHON Screen, IFA NEGATIVE NEGATIVE 10:48 AM EDT [facility] Comment: STEPHON IFA is a first line [...] AC-0: Negative International Consensus on STEPHON Patterns (https://doi.org/10.1515/tlyz-4839-0443) For additional information, please refer to http://education.G[place] [place]ria/faq/PCD028 (This link is being provided for informational/ educational purposes only.) Blood Structure of peripheral vein / Unknown Venipuncture / Unknown 12/22/2024 2:14 PM EDT 12/22/2024 2:52 PM EDT [facility] - 12/24/2024 10:48 AM EDT [facility] Received Date: Lauren Hancock MD LAB BLOOD ORDERABLES Fin al Result [facility] 200 [facility] 3rd Floor, [place] [address], [facility] [address] [facility] 3rd Floor, [place] [address], [place] [phone] * Ceruloplasmin (12/22/2024 2:14 PM EDT) Pathologist [facility] Ceruloplasmin 39 14 - 48 mg/dL 12/23/2024 2:32 AM EDT [facility] Blood Structure of peripheral vein / Unknown Venipuncture / Unknown 12/22/2024 2:14 PM EDT 12/22/2024 2:50 PM EDT [facility] - 12/23/2024 2:32 AM EDT [facility] Received Date:[id number] us Lauren Hancock MD LAB BLOOD ORDERABLES Fin al Result Performing Organization Address City/[facility]/ZIP Co de Phone Number [place] [address] [facility] [address] [facility], [place] [address], [place] [phone] [email or web address] [facility] [address] [facility] 3rd Floor, [place] [address], [place] [phone] * (ABNORMAL) Zinc (12/22/2024 2:14 PM EDT) Zinc 54(L) 60 - 130 mcg/dL 12/24/2024 7:44 PM EDT [facility] [place]) Comment: This test was developed and its analytical performance characteristics have been determined by [facility] [place], [place]. It has not been cleared or approved by the U.S. Food and Drug Administration. This assay has been validated pursuant to the CLIA regulations and is used for clinical purposes. Blood Structure of peripheral vein / Unknown Venipuncture / Unknown 12/22/2024 2:14 PM EDT 12/22/2024 2:50 PM EDT [facility]) - 12/24/2024 7:44 PM EDT [facility] Received Date:[id number] us Lauren Hancock MD LAB BLOOD ORDERABLES Fin al Result Performing Organization Address City/[facility]/ZIP Co de Phone Number [facility] [employer]) [address] [place], [place] , [place] * (ABNORMAL) Vitamin A (Retinol) (12/22/2024 2:14 PM EDT) Vitamin A (Retinol) 29(L) 38 - 98 mcg/dL 12/24/2024 6:46 PM EDT [facility] [place]) Comment: Vitamin supplementation within 24 hours prior to blood draw may affect the accuracy of the results. This test was developed and its analytical performance characteristics have been determined by [facility] [place]. It has not been cleared or approved by the U.S. Food and Drug Administration. This assay has been validated pursuant to the CLIA regulations and is used for clinical purposes. Blood Structure of peripheral vein / Unknown Venipuncture / Unknown 12/22/2024 2:14 PM EDT 12/22/2024 2:46 PM EDT [facility]) - 12/24/2024 6:46 PM EDT [facility] Received Date:[id number] Lauren Hancock MD LAB BLOOD ORDERABLES Fin al Result [facility] [place]) [address] [place], [place] , [place] * (ABNORMAL) Emma-Dietz Virus VCA, IgG (12/22/2024 2:14 PM EDT) EBV Viral Capsid Ag Ab (IGG) 652.00(H) U/mL 12/23/2024 3:42 AM EDT [email or web address] [facility] Comment: U/mL Interpretation ---- <18.00 Negative 18.00-21.99 Equivocal >21.99 Positive Blood Structure of peripheral vein / Unknown Venipuncture / Unknown 12/22/2024 2:14 PM EDT 12/22/2024 2:50 PM EDT [facility] [place] - 12/23/2024 3:42 AM EDT [facility] Received Date:[id number] Lauren Hancock MD LAB BLOOD ORDERABLES Fin al Result Performing Organization Address City/[facility]/ZIP Co de Phone Number [address]rd Floor, [place] [address], [place] [phone] [email or web address] [address], [place] [address], [place] [phone] * Hepatitis B Core Antibody, Total (12/22/2024 2:14 PM EDT) [facility] Hepatitis B Core Ab Total NON-REACT DEREJE NON-REACT DEREJE 12/22/2024 7:44 PM EDT [facility] Comment: For additional information, please refer to http://IgnitionOne.The App3/faq/MAI170 (This link is being provided for informational/ educational purposes only.) Blood Structure of peripheral vein / Unknown Venipuncture / Unknown 12/22/2024 2:14 PM EDT 12/22/2024 2:50 PM EDT Narrative [facility] - 12/22/2024 7:44 PM EDT [facility] Received Date: Lauren Hancock MD LAB BLOOD ORDERABLES Fin al Result [facility] 200 [facility] 3rd Floor, [place] [address], [email or web address] [facility] [address] [facility] 3rd Floor, [place] [address], * Hepatitis C RNA, Quantitative, PCR (12/22/2024 2:14 PM EDT) [facility] Hcv RNA, Quantitative Real Time PCR <15 NOT DETECTED NOT DETECTED IU/mL 12/23/2024 1:16 PM EDT [email or web address] [facility] Hepatitis C Quantitative PCR Log IU/mL <1.18 NOT DETECTED NOT DETECTED Log IU/mL 12/23/2024 1:16 PM EDT [email or web address] Comment: HCV RNA is not detected. [...] more information on this test, go to: http://IgnitionOne.The App3/faq/NQR40d3 (This link is being provided for informational/ [...] MD LAB BLOOD ORDERABLES Fin al Result [facility] 200 [facility] 3rd Floor, [place] [address], [email or web address] [facility] [address] [facility] 3rd Floor, [place] [address], * Vitamin D, 25-Hydroxy, Total, Immunoassay (12/22/2024 2:14 PM EDT) [facility] Signature Calcidiol+ercalc idiol 62 30 - 100 ng/mL 12/22/2024 10:26 PM EDT [facility] Comment: Vitamin D Status 25-OH Vitamin D: Deficiency: <20 ng/mL Insufficiency: 20 - 29 ng/mL Optimal: > or = 30 ng/mL For 25-OH Vitamin D testing on patients on D2-supplementation and patients for whom quantitation of D2 and D3 fractions is required, the QuestAssureD(TM) 25-OH VIT D, (D2,D3), LC/MS/MS is recommended: order code 24217 (patients >2yrs). See Note 1 Note 1 For additional information, please refer to http://education.DueProps.Asseta/faq/SIC492 (This link is being provided for informational/ educational purposes only.) Blood Structure of peripheral vein / Unknown Venipuncture / Unknown 12/22/2024 2:14 PM EDT 12/22/2024 2:51 PM EDT Narrative [facility] - 12/22/2024 10:26 PM EDT [facility] Received Date:[id number] us Lauren Hancock MD LAB BLOOD ORDERABLES Fin al Result [facility] [place] [address], [place] [address], [place] [phone] [email or web address] [facility] [address], [place] [address], [place] [phone] * Mitochondrial Antibody w/Reflex (12/22/2024 2:14 PM EDT) [facility] Mitochondrial Ab Screen NEGATIVE NEGATIVE 12/25/2024 12:24 PM EDT [email or web address] Blood Structure of peripheral vein / Unknown Venipuncture / Unknown 12/22/2024 2:14 PM EDT 12/22/2024 2:51 PM EDT [employer] [place] - 12/25/2024 12:24 PM EDT [facility] Received Date:[id number] us Lauren Hancock MD LAB BLOOD ORDERABLES Fin al Result Performing Organization Address City/[facility]/ZIP Co de Phone Number [facility] [place] [address], [place] [address], [place] [phone] [facility] [address], [place] [address], [place] [phone] * Toxoplasma gondii Antibody, IgG (12/22/2024 2:14 PM EDT) [facility] Toxoplasma Ab IgG <7.20 IU/mL 12/23/2024 4:53 AM EDT [facility] Comment: IU/mL Interpretation ------ <7.20 Negative 7.20-8.79 Equivocal >8.79 Positive Blood Structure of peripheral vein / Unknown Venipuncture / Unknown 12/22/2024 2:14 PM EDT 12/22/2024 2:51 PM EDT [employer] [facility] [place] - 12/23/2024 4:53 AM EDT [facility] Received Date:[id number] us Lauren Hancock MD LAB BLOOD ORDERABLES Fin al Result [place] [address] [facility] 3rd Floor, [place] [address], [place] [phone] [email or web address] [facility] [address], [place] [address], * HIV-1/2 Antigen/Antibodies 4th Generation w/Reflex (12/22/2024 2:14 PM EDT) HIV Final Interp See Comments 12/22/2024 7:45 PM EDT [facility] Comment: HIV Negative HIV-1 antigen and HIV-1/HIV-2 antibodies were not detected. There is no laboratory evidence of HIV infection. Blood Structure of peripheral vein / Unknown Venipuncture / Unknown 12/22/2024 2:14 PM EDT 12/22/2024 2:50 PM EDT Narrative [facility] [place] - 12/22/2024 7:45 PM EDT [facility] Received Date:[id number] us Lauren Hancock MD LAB BLOOD ORDERABLES Fin al Result Performing Organization Address City/[facility]/ZIP Co de Phone Number [place] [address] [facility] [address] [facility], [place] [address], [place] [phone] [email or web address] [facility] [address], [place] [address], [place] [phone] * Hepatitis B Surface Antibody (12/22/2024 2:14 PM EDT) Hepatitis B Surface Ab Immunity, Qn 173 > OR = 10 mIU/mL 12/22/2024 10:28 PM EDT [facility] Comment: PATIENT HAS IMMUNITY TO HEPATITIS B VIRUS. For additional information, please refer to http://education.The App3/faq/FZI442 (This link is being provided for informational/ educational purposes only). Blood Structure of peripheral vein / Unknown Venipuncture / Unknown 12/22/2024 2:14 PM EDT 12/22/2024 2:51 PM EDT Narrative [facility] - 12/22/2024 10:28 PM EDT [facility] Received Date:[id number] us Lauren Hancock MD LAB BLOOD ORDERABLES Fin al Result [place] [address] [facility] [address] [facility], [place] [address], [place] [phone] [email or web address] [facility] [address], [place] [address], [place] [phone] * Hepatitis B Surface Antigen w/Confirmation (12/22/2024 2:14 PM EDT) Pathologist [facility] Hepatitis B Surface Antigen NON-REACT DEREJE NON-REACT DEREJE 12/23/2024 10:30 AM EDT [email or web address] [facility] Comment: For additional information, please refer to http://education.The App3/faq/TVA279 (This link is being provided for informational/ educational purposes only.) Blood Structure of peripheral vein / Unknown Venipuncture / Unknown 12/22/2024 2:14 PM EDT 12/22/2024 2:52 PM EDT [facility] - 12/23/2024 10:30 AM EDT [facility] Received Date:[id number] us Lauren Hancock MD LAB BLOOD ORDERABLES Fin al Result [place] [address] [facility] 3rd Floor, [place] [address], [place] [phone] [email or web address] [facility] [address] [facility] [address] [facility], [place] [address], [place] [phone] * (ABNORMAL) Cytomegalovirus Antibody, IgG (12/22/2024 2:14 PM EDT) Pathologist [facility] Cytomegalovirus Antibody (IgG) >10.00(H ) U/mL 12/23/2024 3:42 AM EDT [email or web address] [facility] Comment: U/mL Interpretation ----- <0.60 Negative 0.60-0.69 Equivocal > or = 0.70 Positive A positive result indicates that the patient has antibody to CMV. It does not differentiate between an active or past infection. Blood Structure of peripheral vein / Unknown Venipuncture / Unknown 12/22/2024 2:14 PM EDT 12/22/2024 2:50 PM EDT Narrative [facility] 12/23/2024 3:42 AM EDT [facility] Received Date:[id number] us Lauren Hancock MD LAB BLOOD ORDERABLES Fin al Result Performing Organization Address City/[facility]/ZIP Co de Phone Number [facility] [address] [facility] 3rd Floor, [place] [address], [place] [phone] [email or web address] [facility] [address] [facility] [address] [facility], [place] [address], [place] [phone] * PTT (12/22/2024 2:14 PM EDT) [facility] aPTT 29.1 23.0 - 32.0 Seconds 12/22/2024 3:16 PM EDT [facility] Comment: Current PTT reagent is not sensitive to detect all Lupus Anticoagulant (LA) Inhibitor Cases. If a LA is suspected, please order a Lupus Anticoagulation w/ Reflex Test which is performed at [facility] in [place], [place]. Blood Structure of peripheral vein / Unknown Venipuncture / Unknown 12/22/2024 2:14 PM EDT 12/22/2024 2:53 PM EDT us Lauren Hancock MD LAB BLOOD ORDERABLES Fin al Result Performing Organization Address City/[facility]/ZIP Co de Phone Number [facility] [address] [place] [address] * (ABNORMAL) [employer]-INR (12/22/2024 2:14 PM EDT) PT 12.6(H) 9.6 - 12.4 Seconds 12/22/2024 3:16 PM EDT [facility] PATH[facility] LABORATORY INR 1.2 0.9 - 1.1 12/22/2024 3:[address] [employer] Comment:The optimal therapeu tic INR range for patients treated with Vitamin K antagonists (VKAS, e.g., Warfarin) is 2.0 to 3.5. Discuss the desired range with your doctor/care team. Blood Structure of peripheral vein / Unknown Venipuncture / Unknown 12/22/2024 2:14 PM EDT 12/22/2024 2:53 PM EDT Lauren Hancock MD LAB BLOOD ORDERABLES Fin al Result [facility] [address] [place] [address] * Type and Screen (12/22/2024 2:14 PM EDT) ABO Blood Type A 12/22/2024 3:35 PM EDT [facility] RH Type Positive 12/22/2024 3:35 PM EDT [facility] Expiration Date/Time 2024-12-25 23:59 12/22/2024 3:35 PM EDT [facility] Antibody Screen Negative 12/22/2024 3:35 PM EDT [facility] Blood Structure of peripheral vein / Unknown Venipuncture / Unknown 12/22/2024 2:14 PM EDT 12/22/2024 2:17 PM EDT Lauren Hancock MD LAB BLOOD BANK TEST ORDE RABSTEVEN Final Result [facility] [address] [place] [address], * Varicella Zoster Antibody, IgG (12/22/2024 2:14 PM EDT) [facility] Varicella Zoster Virus Antibody 30.50 S/CO 12/22/2024 10:41 PM EDT [email or web address] [facility] Comment: Signal to Cut-off S/CO Interpretation [...] PM EDT 12/22/2024 2:51 PM EDT Narrative [facility] - 12/22/2024 10:41 PM EDT [facility] Received Date: Lauren Hancock MD LAB BLOOD ORDERABLES Fin al Result [facility] [address] [facility] [address]rd Floor, [place] [address], [place] [phone] [email or web address] [facility] [address] [facility] [address]rd [address], [place] [address], [place] [phone] * Phosphorus (12/22/2024 2:14 PM EDT) [facility] Phosphorus 4.0 2.5 - 4.5 mg/dL 12/22/2024 3:[address] [facility] [employer] [facility] CL[facility] PATHOLOG[facility] LABORATORY Blood Structure of peripheral vein / Unknown Venipuncture / Unknown 12/22/2024 2:14 PM EDT 12/22/2024 2:51 PM EDT us Lauren Hancock MD LAB BLOOD ORDERABLES Fin al Result Performing Organization Address City/[facility]/ZIP Co de Phone Number [facility] [address] [place] [address], * Magnesium (12/22/2024 2:14 PM EDT) MG 1.6 1.6 - 2.4 mg/dL 12/22/2024 3:36 PM EDT [facility] Blood Structure of peripheral vein / Unknown Venipuncture / Unknown 12/22/2024 2:14 PM EDT 12/22/2024 2:51 PM EDT us Lauren Hancock MD LAB BLOOD ORDERABLES Fin al Result Performing Organization Address [place]/[facility] de Phone Number [facility] [address] [place] [address], * (ABNORMAL) Hemoglobin A1c (12/22/2024 2:14 PM EDT) Hemoglobin A1C 5.9(H) <5.7 % 12/22/2024 8:27 PM EDT [facility] Comment: For someone without known diabetes, a [...] (MG/DL) 123 mg/dL 12/22/2024 8:27 PM EDT [facility] eAG (MMOL/L) 6.8 mmol/L 12/22/2024 8:27 PM EDT [employer] Blood Structure of peripheral vein / Unknown Venipuncture / Unknown 12/22/2024 2:14 PM EDT 12/22/2024 2:51 PM EDT [facility]arrative [facility] [facility] - 12/22/2024 8:27 PM EDT [facility] Received Date:[id number] us Lauren Hancock MD LAB BLOOD ORDERABLES Fin al Result [facility] [address] [facility] 3rd Floor, [place] [address], [place] [phone] [facility] [address] [facility] 3rd Floor, [place] [address], [place] [phone] * Ferritin (12/22/2024 2:14 PM EDT) Ferritin 172.0 11.0 - 306.0 ng/mL 12/22/2024 3:36 PM EDT [facility] Blood Structure of peripheral vein / Unknown Venipuncture / Unknown 12/22/2024 2:14 PM EDT 12/22/2024 2:51 PM EDT us Lauren Hancock MD LAB BLOOD ORDERABLES Fin al Result Performing Organization Address City/[facility]/ZIP Co de Phone Number [facility] [address] [place] [id number], * Bilirubin, Direct (12/22/2024 2:14 PM EDT) Bilirubin, Direct 0.3 <=0.4 mg/dL 12/22/2024 3:36 PM EDT [facility] Blood Structure of peripheral vein / Unknown Venipuncture / Unknown 12/22/2024 2:14 PM EDT 12/22/2024 2:51 PM EDT us Lauren Hancock MD LAB BLOOD ORDERABLES Fin al Result [facility] [address] [place] [address], * Ethanol (12/22/2024 2:14 PM EDT) Ethanol <10 <10 mg/dL 12/22/2024 3:38 PM EDT [facility] Blood Structure of peripheral vein / Unknown Venipuncture / Unknown 12/22/2024 2:14 PM EDT 12/22/2024 2:50 PM EDT Lauren Hancock MD LAB BLOOD ORDERABLES Fin al Result Performing Organization Address [place]/[facility] Co de Phone Number [facility] [address] [place] [address], [place] * (ABNORMAL) Lipid panel (12/22/2024 2:14 PM EDT) Cholesterol 203(H) <=199 mg/dL 12/22/2024 3:36 PM EDT [facility] Triglycerides 171(H) <=149 mg/dL 12/22/2024 3:36 PM EDT [facility] Cholesterol, HDL 39(L) 40 - 59 mg/dL 12/22/2024 3:36 PM EDT [facility] Cholesterol, Non-HDL 164 mg/dL 12/22/2024 3:36 PM EDT [facility] LDL Cholesterol 130(H) <100 mg/dL 12/22/2024 3:36 PM EDT [facility] VLDL 34.2 mg/dL 12/22/2024 3:36 PM EDT [facility] Cholesterol/HDL Ratio 5.2(H) <5.0 12/22/2024 3:36 PM EDT [facility] Blood Structure of peripheral vein / Unknown Venipuncture / Unknown 12/22/2024 2:14 PM EDT 12/22/2024 2:51 PM EDT Narrative [facility] - 12/22/2024 3:36 PM [...] MD LAB BLOOD ORDERABLES Fin al Result [facility] [address] [place] [address], * (ABNORMAL) Comprehensive Metabolic Panel (12/22/2024 2:14 PM EDT) NA 141 135 - 145 mmol/L 12/22/2024 3:36 PM EDT [facility] K 3.9 3.5 - 5.3 mmol/L 12/22/2024 3:36 PM EDT [facility] Cl 101 98 - 107 mmol/L 12/22/2024 3:36 PM EDT [facility] CO2 27 22 - 32 mmol/L 12/22/2024 3:36 PM EDT [facility] Anion Gap 13 5 - 15 12/22/2024 3:36 PM EDT [facility] Glucose 85 65 - 99 mg/dL 12/22/2024 3:36 PM EDT [facility] Creatinine 0.77 0.50 - 1.20 mg/dL 12/22/2024 3:36 PM EDT [facility] Calcium 10.5 8.6 - 10.5 mg/dL 12/22/2024 3:36 PM EDT [facility] Total Protein 8.3(H) 6.0 - 8.0 g/dL 12/22/2024 3:36 PM EDT [facility] Albumin 3.9 3.5 - 5.2 g/dL 12/22/2024 3:36 PM EDT [facility] Bilirubin, Total 0.6 0.2 - 1.2 mg/dL 12/22/2024 3:36 PM EDT [facility] Alkaline Phosphatase 71 35 - 129 U/L 12/22/2024 3:36 PM EDT [facility] AST 35 10 - 40 U/L 12/22/2024 3:36 PM EDT [facility] ALT 30 10 - 40 U/L 12/22/2024 3:36 PM EDT [facility] BUN 12 7 - 23 mg/dL 12/22/2024 3:36 PM EDT [facility] eGFR 83 >=60 mL/min/1. 73m2 12/22/2024 3:36 PM EDT [facility] Comment:The estimated glomer ular [...] - 4.2 g/dL 12/22/2024 3:36 PM EDT [facility] A/G Ratio 0.9(L) 1.5 - 3.0 12/22/2024 3:36 PM EDT [facility] Blood Structure of peripheral vein / Unknown Venipuncture / Unknown 12/22/2024 2:14 PM EDT 12/22/2024 2:51 PM EDT Lauren Hancock MD LAB BLOOD ORDERABLES Fin al Result [facility] [address] [place] [address], * IMAGING - SCANNED (11/19/2024 4:50 PM EDT) Anatomical Region Laterality Modality Other us Unknown Provider SCANNED PROCEDURES Final Res ult from Last 3 Months Insurance [address] [place] [phone] [facility] [place] [facility] [address] [place], [place] [id number] [phone] Advance Directives Documents on File Type Date Recorded Patient Ophthalmic Asst Expl [facility] Care Proxy 01/19/2025 2:50 PM 2024 Care Teams Sprayer Leather Relationship Specialty Start Date End Date Darius Tamayo MD [address] [place] [id number] PCP - General Gastroenterology 12/22/24
--- OUTSIDE RECORDS SUMMARY | 2025-02-05 14:48 | XMS_ITS | Clinical Summary ---
Author Organization [employer] Address [address] [facility] [address] [place] [address] Care Team Providers Care Bird Trapper Name Role Phone Stephen Tom WEI Primary Care Provider [phone] Everett Rojas MD Unavailable [phone] Allergies Active Allergy Reactions Criticality Noted Date [...] in cirrhosis 04/16/2023 Overview (10/06/2024): EGDs via [facility] History of Helicobacter pylori infection 023 Overview (04/16/2023): tx'd 10/2021 via [facility] Cirrhosis of liver without ascites 04/16/2023 Overview (10/06/2024): compensated. thought to be d/t CARTWRIGHT vs. HCV. Follows w/ [facility] and had abd MRI to eval liver lesion 07/2022. 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 [address] [place] [phone] Pain in finger of right hand (Primary Dx) 02/05/2025 Travel 01/26/2025 Orders Only GENERIC EXTERNAL DATA DEPARTMENT Provider, Generic External Data 01/22/[address] [facility] [address] [place] [address] Name, MD Harris Moderate persistent asthma without complication (Primary Dx) 01/22/[address] [facility] [address] [place] [phone] Tom Trujillo ANP Tracheostomy Tube Check 01/20/2025 6:00 PM EDT Office Visit [facility] [address] [place] [address] Tom Trujillo ANP 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ciatica (Primary Dx) 01/20/2025 Travel 01/19/2025 Results Follow-Up [facility] [address] [place] [phone] Marcela Crook MD XR CERVICAL SPINE 3V 01/18/2025 1:45 PM EDT Office Visit [facility] [address] [place] [address] Marcela Crook MD Neck pain (Primary Dx); Dietary counseling; Exercise counseling; Class 1 obesity due to excess calories with serious comorbidity and body mass index (BMI) of 31.0 to 31.9 in adult 01/18/2025 Travel 01/18/[address] [address] Tom Trujillo ANP Nurse Triage 01/13/2025 Travel 01/13/2025 Telephone [facility] [address] [place] [address] Nichole Lucio, MONAE 01/08/2025 Telephone [facility] [address] [place] [address] Nichole Lucio, MONAE 01/04/2025 Orders Only GENERIC EXTERNAL DATA DEPARTMENT Provider, Generic External Data 12/30/[address] [address] Nita Mendoza, political researcher Question 12/25/[address] [address] Connie Felipe RN Medication Question 12/25/2024 Orders Only [address] [address] Tom Trujillo ANP Atherosclerosis of augustine coronary artery of augustine heart with stable angina pectoris ([facility]) (Primary Dx) 12/08/2024 Orders Only GENERIC EXTERNAL DATA DEPARTMENT Provider, [facility] External Data 11/18/2024 Orders Only [facility] External Provider, [facility] 11/11/[address] [address] Tom Trujillo ANP Chart Prep 11/06/2024 Refill [facility] [address] [place] [address] Nichole Lucio, RN Lumbago of lumbar region with sciatica 11/06/2024 Travel 11/06/[address] [address] Tom Trujillo ANP Med Refill from Last 3 Months Immunizations Immunization Administration [...] F) 02/05/2025 1:11 PM EDT Respiratory Rate 21 01/20/2025 6:01 PM EDT Oxygen Saturation 96% 02/05/2025 1:11 PM EDT Inhaled Oxygen Concentration - - Weight 67 kg (147 lb 12.8 oz) 02/05/2025 1:11 PM EDT Height 149.9 cm (4' 11 ) 01/20/2025 6:01 PM EDT Body Mass Index 29.85 01/20/2025 6:01 PM EDT Plan of Treatment Upcoming Encounters Date Type Department Care Team (Late st Contact Info) Description 02/09/2025 11:00 AM EDT Clinical Support [facility] [address] [place] [address] Nichole Lucio, RN [address] [place] [address] 02/16/2025 11:15 AM EDT Office Visit [address] [address] Tom Trujillo ANP [address] [place] [phone] 03/22/2025 2:00 PM EST Office Visit [address] [address] Tom Trujillo ANP [address] [place] [address] Health Maintenance Due Date Last Done Comments [...] 04/12, 10/31/2021, Additional history exists Tobacco Screening 02/05/2026 02/05/2025 DTaP/Tdap/Td Vaccines (3 - Td or Tdap) [...] Comments XR HAND 3+ VIEWS RIGHT STAT 1:51 PM EDT Pain in finger of right hand COVID-19 ID NOW (PLUMgrid) Routine 01/26/2025 11:38 AM EDT INFLUENZA A B2 ID NOW (KIM) Routine 01/26/2025 11:[address] CERVICAL [...] Relevant to Health Maintenance Results * XR Hand 3+ Views Right (02/05/2025 1:51 PM EDT) Anatomical Region Laterality Modality Upper Extremities, Hand Right Radiogra phic Imaging 02/05/2025 1:51 PM EDT Narrative 02/05/2025 2:05 PM EDT [address] [address] XRay Report Signed Patient: Walt Rajan MR #: [id number] : 1955 Acct:[id number] Age/Sex: 69 / F ADM Date: 02/05/25 Loc: HO.HHCX Attending Dr: Anabela Carlson MD Ordering Physician: Anabela Carlson MD Date of Service: 02/05/25 Procedure(s): XR hand RT min 3V Accession Number(s): [id number] cc: Anabela aCrlson MD Reason for Exam: Acute right 3rd [...] 02/05/25 1402 DD/ 1351 TD/TT: 02/05/25 1358 Video Production Engineer: Procedure Note Donotuseinterpreter, Image - 02/05/[address] [address] XRay Report Signed Patient: Kenyon Rajan #: [id number] : 1955cct:[id number] Age/Sex: 69 / FADM Date: 02/05/25 Loc: HO.HHCX Attending Dr: Anabela Carlson MD Ordering Physician: Anabela Carlson MD Date of Service: 02/05/25 Procedure(s): XR hand RT min 3V Accession Number(s): [id number] cc: Anabela Carlson MD Reason for Exam: [...] 02/05/25 1402 DD/ 1351 TD/TT: 02/05/25 1358 Video Production Engineer: us Anabela Carlson MD IMG XR PROCEDURES Final Resul t * Influenza A B2 ID NOW (Kim) (01/26/2025 11:38 AM EDT) IDNOW SERIAL# [id number] [facility] Influenza A Negative Negative [facility] Influenza B2 Negative Negative [facility] Influenza A B2 Note See Note [facility] Comment:The Kim ID NOW In [...] LAB MICROBIOLOGY - GENERAL ORDERABLES Final Result [facility] [address] [place] [phone] * COVID-19 ID NOW (KIM) (01/26/2025 11:38 AM EDT) IDNOW SERIAL# [id number] [facility] COVID-19 TEST Negative Negative [facility] COVID-19 NOTE See Note [facility] Comment: Results are for the identification of SARS-CoV2 RNA. TheSARS-CoV2 RNA is generally detectable in respiratory samplesduring the acute phase of infection. Positive results areindicative of the presence of SARS-CoV-2 RNA; clinicalcorrelation with patient history and other diagnosticinformation is necessary to determine patient infectionstatus. Positive results do not rule out bacterial infectionor co- infection with other viruses.Testing facilities within the [place] and itsterritories are required to report all [...] use by authorized laboratories.Testing performed on the [employer] ID NOW utilizing NAAT. 01/26/2025 11:3 8 AM EDT 01/26/2025 11:41 AM EDT us Generic External Data Provider LAB MOLECULAR MOON GNOSTICS ORDERABLES Final Result [facility] [address] [place] [address] [phone] * CT Cervical Spine w/o Contrast (01/26/2025 11:11 AM EDT) Anatomical Region Laterality Modality Spine, C-spine Computed Tomogra phy 01/26/2025 11:1 1 AM EDT Narrative 01/26/2025 11:51 AM EDT [address] [address] [address] Scan Report Signed Patient: Walt Rajan MR #: [id number] : 1955 Acct:[id number] Age/Sex: 69 / F ADM Date: 01/26/25 Loc: HO.ED Attending Dr: Ordering Physician: Molly Mata Date of Service: 01/26/25 Procedure(s): CT cervical spine wo IV con Accession Number(s): [id number] cc: Molly Mata; TOM TRUJILLO NP Report Number: [id number]: Total DLP = 277.00 mGy-cm Reason for [...] 01/26/25 1148 DD/ 1111 TD/TT: 01/26/25 1134 Video Production Engineer: Procedure Note Donotuseinterpreter, Image - 01/26/[address] [address] [address] Scan Report Signed Patient: Kenyon Rajan #: [id number] : 4Acct:[id number] Age/Sex: 69 / FADM Date: 01/26/25 Loc: HO.ED Attending Dr: Ordering Physician: Molly Mata Date of Service: 01/26/25 Procedure(s): CT cervical spine wo IV con Accession Number(s): [id number] cc: Molly Mata; TOM TRUJILLO NP Report Number: [id number]: Total DLP = 277.00 mGy-cm Reason for [...] 01/26/25 1148 DD/ 1111 TD/TT: 01/26/25 1134 Video Production Engineer: [facility] External Provider IMG CT PROCEDURES Edited Result - Final * CT Head w/o Contrast (01/26/2025 11:11 AM EDT) Anatomical Region Laterality Modality Head, Neck Computed Tomogra phy 01/26/2025 11:1 1 AM EDT Narrative 01/26/2025 11:44 AM EDT [place] [address] [address] Scan Report Signed Patient: Walt Rajan MR #: [id number] : 1955 Acct:[id number] Age/Sex: 69 / F ADM Date: 01/26/25 Loc: HO.ED Attending Dr: Ordering Physician: Molly Mata Date of Service: 01/26/25 Procedure(s): CT head/brain wo IV con Accession Number(s): [id number] cc: Molly Mata; TOM TRUJILLO NP Report Number: [id number]: Total DLP = 593.00 mGy-cm Reason for [...] 01/26/25 1139 DD/ 1111 TD/TT: 01/26/25 1134 Video Production Engineer: Procedure Note Donotuseinterpreter, Image - 01/26/[address] [address] [address] Scan Report Signed Patient: Kenyon Rajan #: [id number] : 1955cct:[id number] Age/Sex: 69 / FADM Date: 01/26/25 Loc: HO.ED Attending Dr: Ordering Physician: Molly Mata Date of Service: 01/26/25 Procedure(s): CT head/brain wo IV con Accession Number(s): [id number] cc: Molly Mata; TOM TRUJILLO NP Report Number: [id number]: Total DLP = 593.00 mGy-cm Reason for [...] 01/26/25 1139 DD/ 1111 TD/TT: 01/26/25 1134 Video Production Engineer: us [facility] External Provider IMG CT PROCEDURES Edited Result - Final * XR CERVICAL SPINE 3V (01/18/2025 3:10 PM EDT) Anatomical Region Laterality Modality Abdomen Radiographic Dawn ging 01/18/2025 3:10 PM EDT Narrative 01/18/2025 3:25 PM EDT [facility] [address] [place] [address] XRay Report Signed Patient: Walt Rajan MR #: [id number] : 1955 Acct:[id number] Age/Sex: 69 / F ADM Date: 01/18/25 Loc: HO.HHCX Attending Dr: Marcela Crook MD Ordering Physician: Marcela Crook MD Date of Service: 01/18/25 Procedure(s): XR cervical spine 3V Accession Number(s): [id number] cc: TOM TRUJILLO [employer]AN [employer] HR REPRESENTATIVE; Marcela Crook MD Reason for Exam: neck [...] 01/18/25 1522 DD/ 1510 TD/TT: 01/18/25 1513 Video Production Engineer: Procedure Note Donotuseinterpreter, Image - 01/18/[address] [address] XRay Report Signed Patient: Kenyon Rajan #: [id number] : 4Acct:[id number] Age/Sex: 69 / FADM Date: 01/18/25 Loc: HO.HHCX Attending Dr: Marcela Crook MD Ordering Physician: Marcela Crook MD Date of Service: 01/18/25 Procedure(s): XR cervical spine 3V Accession Number(s): [id number] cc: TOM TRUJILLO H[employer] HR REPRESENTATIVE; Marcela Crook MD Reason for Exam: neck [...] 01/18/25 1522 DD/ 1510 TD/TT: 01/18/25 1513 Video Production Engineer: Marcela Crook MD IMG XR PROCEDURES Edited Result - Final * TSH with Reflex to Free T4 (01/04/2025 1:20 PM EDT) Pathologist [facility] TSH reflex Free T4 1.86 0.32 - 4.0 uIU/mL [facility] 01/04/2025 1:20 PM EDT 01/04/2025 4:05 PM EDT us Generic External Data Provider LAB BLOOD ORDERAB LES Final Result [facility] [address] [place] [phone] * (ABNORMAL) CBC auto differential (01/04/2025 1:20 PM EDT) Only the most recent of2 resultswithin the time period is included. [facility] White Blood Count 4.9 4.8 - 10.8 X10*3/uL [facility] Red Blood Count 4.05(L) 4.20 - 5.50 X10*6/uL [facility] Hemoglobin 11.8(L) 12.0 - 16.0 g/dl [facility] Hematocrit 36.6(L) 37.0 - 47.0 % [facility] Mean Corpuscular Volume 90.4 80.0 - 98.0 fL [facility] Mean Corpuscular Hemoglobin 29.1 27.0 - 33.0 pg [facility] Mean Corpuscular HGB Conc 32.2 31.0 - 35.0 g/dl [facility] Red Cell Distribution Width 15.3 11.0 - 16.0 % [facility] Platelet Count 184 160 - 400 X10*3/uL [facility] Mean Platelet Volume 11.5 9.4 - 12.3 fL [facility] Neutrophils Percent Auto 67.0 45 - 73 % [facility] Imm Gran Pct Auto 0.2 0.0 - 0.4 % [facility] Lymphocytes Percent Auto 20.4 20 - 40 % [facility] Monocytes Percent Auto 10.0 2 - 11 % [facility] Eosinophils Percent Auto 2.0 0 - 4 % [facility] Basophils Percent Auto 0.4 0 - 2 % [facility] NRBC Pct Auto 0.0 0.0 - 0.2 /100WBC [facility] Neutrophils Absolute Auto 3.3 2.0 - 8.3 x10*3/uL [facility] Imm Gran Abs Auto 0.01 0.00 - 0.03 X10*3/uL [facility] Lymphocytes Absolute Auto 1.0(L) 1.2 - 4.9 X10*3/uL [facility] Monocytes Absolute Auto 0.5 0.1 - 1.2 X10*3/uL [facility] Eosinophils Absolute Auto 0.1 0.0 - 0.4 X10*3/uL [facility] Basophils Absolute Auto 0.0 0.0 - 0.2 X10*3/uL [facility] NRBC Abs Auto 0.000 0.0 - 0.012 X10*3/uL [facility] 01/04/2025 1:20 PM EDT 01/04/2025 4:05 PM EDT us Generic External Data Provider LAB BLOOD ORDERAB LES Final Result Performing Organization Address [facility]/ZIP Co de Phone Number [facility] [address] [place] [phone] * Hepatic Function Panel (01/04/2025 1:20 PM EDT) Only the most recent of2 resultswithin the time period is included. Bilirubin, Direct 0.3 0.0 - 0.5 mg/dL [facility] 01/04/2025 1:20 PM EDT 01/04/2025 4:05 PM EDT us Generic External Data Provider LAB BLOOD ORDERAB LES Final Result Performing Organization Address City/[facility]/ZIP Co de Phone Number [facility] [address] [place] [phone] * (ABNORMAL) Lipid Panel, Standard (01/04/2025 1:20 PM EDT) Triglycerides 104 <150 mg/dL [facility] Comment:Desirable Triglyceri de: less than 150 mg/dLBorderline High Triglyceride 150-199 mg/dLHigh Triglyceride: 200-499 mg/dLVery High Triglyceride: greater than or equal to 5OO mg/dL Cholesterol 122 <200 mg/dL [facility] Comment:Desirable Cholestero l: less than 200 mg/dLBorderline High Cholesterol: 200-239 mg/dLHigh Cholesterol: greater than 239 mg/dL LDL Cholesterol Calculated 70 <100 mg/dL [facility] Comment:Desirable LDL: less than 100 mg/dLNear Optimal/Above Optimal LDL: 110- 129 mg/dLBorderline High LDL: 130-159 mg/dLHigh LDL: 160-189 mg/dLVery High LDL: greater than or equal to 190 mg/dL HDL Cholesterol 32(L) >40 mg/dL [facility] Comment:Desirable HDL: great er than 40 mg/dL Note: This HDL assay may give artificially low results in patients with liver disease. 01/04/2025 1:20 PM EDT 01/04/2025 4:05 PM EDT us Generic External Data Provider LAB BLOOD ORDERAB LES Final Result [facility] [address] [place] [phone] * (ABNORMAL) Comprehensive Metabolic Panel (01/04/2025 1:20 PM EDT) Sodium 141 135 - 145 mmol/L [facility] Potassium 3.4 3.3 - 5.1 mmol/L [facility] Chloride 101 96 - 108 mmol/L [facility] Carbon Dioxide 30(H) 22 - 29 mmol/L [facility] Anion Gap 13 12 - 20 [facility] Urea Nitrogen (BUN) 13 9 - 16 mg/dL [facility] Creatinine, Serum 0.82 0.5 - 1.4 mg/dL [facility] Estimated Glomerular Filt Rate >60 [facility] Comment:Chronic Kidney Disea se: Estimated GFR < 60 mL/min/1.35v2Akaphu Kidney Disease: Estimated GFR < 15 mL/min/1.73m2 Glucose 91 60 - 115 mg/dL [facility] Calcium 9.8 8.4 - 10.2 mg/dL [facility] Bilirubin, Total 0.8 0.0 - 1.0 mg/dL [facility] Aspartate Amino Transferase 38(H) 5 - 31 U/L [facility] Alanine Aminotransferase 28 0 - 31 U/L [facility] Total Protein 7.5 6.5 - 8.0 g/dL [facility] Albumin Level 3.7 3.5 - 5.0 g/dL [facility] Alkaline Phosphatase 64 39 - 117 U/L [facility] 01/04/2025 1:20 PM EDT 01/04/2025 4:05 PM EDT us Generic External Data Provider LAB BLOOD ORDERAB LES Final Result Performing Organization Address City/State/[facility] Co de Phone Number [facility] [address] [place] [phone] * CTA Chest PE Protocal (12/08/2024 2:57 PM EDT) Anatomical Region Laterality Modality Body, Chest Computed Tomogra phy 12/08/2024 2:57 PM EDT Narrative 12/08/2024 3:41 PM EDT [address] [address] [address] Scan Report Signed Patient: Walt Rajan MR #: [id number] : 1955 Acct:[id number] Age/Sex: 69 / F ADM Date: 12/08/24 Loc: .ED Attending Dr: Ordering Physician: Evan Keys Date of Service: 12/08/24 Procedure(s): CT angio chest PE protocol Accession Number(s): [id number] cc: Evan Keys; TOM TRUJILLO NP Report Number: [id number]: Total DLP = 187.00 mGy-cm EXAMINATION: CT [...] 12/08/24 1539 DD/ 1457 TD/TT: 12/08/24 1531 Video Production Engineer: Procedure Note Donotuseinterpreter, Image - 12/08/[address] [address] [address] Scan Report Signed Patient: Kenyon Rajan #: [id number] : 4Acct:[id number] Age/Sex: 69 / FADM Date: 12/08/24 Loc: HO.ED Attending Dr: Ordering Physician: Evan Keys Date of Service: 12/08/24 Procedure(s): CT angio chest PE protocol Accession Number(s): [id number] cc: Evan Keys; TOM TRUJILLO NP Report Number: [id number]: Total DLP = 187.00 mGy-cm EXAMINATION: CT [...] 12/08/24 1539 DD/ 1457 TD/TT: 12/08/24 1531 Video Production Engineer: [facility] External Provider IMG CT PROCEDURES Final Result * High Sensitivity Troponin I (12/08/2024 11:52 AM EDT) Pathologist [facility] TROPONIN I HIGH SENSITIVITY 8.5 <3.5 - 17.0 ng/L [facility] Comment:The Kim high sens itivity Troponin-I results should beused in conjunction with other diagnostic information suchas ECG, clinical observations and information, and patientsymptoms to aid in the diagnosis of MT. 12/08/2024 11:5 2 AM EDT 12/08/2024 11:55 AM EDT Generic External Data Provider LAB BLOOD ORDERAB LES Final Result [facility] [address] [place] [phone] * SARS-CoV-2 RNA, Influenza A/B, and RSV RNA, Ql NAAT (12/08/2024 11:52 AM EDT) Pathologist [facility] Influenza A PCR NEGATIVE Negative [facility] Influenza B PCR NEGATIVE Negative [facility] Resp Syncy Virus RNA Qual PCR NEGATIVE Negative [facility] SARS COV2 PCR NEGATIVE Negative [facility] Comment:All test results mus [...] use by authorized laboratories.Testing performed on the [employer] GeneXpert utilizingreal-time RT-PCR.All SARS CoV2 and positive influenza A/B results arereported to [facility]. 12/08/2024 11:5 2 AM EDT 12/08/2024 11:55 AM EDT Generic External Data Provider LAB MICROBIOLOGY - GENERAL ORDERABLES Final Result Performing Organization Address [facility] Co de Phone Number [facility] [address] [place] [phone] * (ABNORMAL) Prothrombin Time-INR (12/08/2024 11:52 AM EDT) Prothrombin Time 23.4(H) 10.9 - 12.4 SEC [facility] INTERNATIONAL NORM RATIO 2.0(H) 0.9 - 1.1 [facility] Comment:INTERNATIONAL NORMAL IZED RATIO (INR) [...] ORDERAB LES Final Result Performing Organization Address [facility] Co de Phone Number [facility] [address] [place] [phone] * B Type Natriuretic Peptide (BNP) (12/08/2024 11:52 AM EDT) B Type Natriuretic Peptide 58 <100 pg/mL [facility] 12/08/2024 11:5 2 AM EDT 12/08/2024 11:55 AM EDT us Generic External Data Provider LAB BLOOD ORDERAB LES Final Result [facility] [address] [place] [phone] * (ABNORMAL) Basic Metabolic Panel (12/08/2024 11:52 AM EDT) Pathologist [facility] Sodium 140 135 - 145 mmol/L [facility] Potassium 3.7 3.3 - 5.1 mmol/L [facility] Chloride 107 96 - 108 mmol/L [facility] Carbon Dioxide 26 22 - 29 mmol/L [facility] Anion Gap 11(L) 12 - 20 [facility] Urea Nitrogen (BUN) 18(H) 9 - 16 mg/dL [facility] Creatinine, Serum 1.00 0.5 - 1.4 mg/dL [facility] Creatinine Clr Calc Pharmacy 42.5 [facility] Comment:Provided height and weight: 149.86 cm,65.771 kg.eGFR (calculated from the MDRD study equation) and eCrCl(calculated from the Cockcroft-Gault equation) are based ondifferent parameters and may not yield comparable results.If eCrCl result is absurd, please check patient'sheight/weight. Estimated Glomerular Filt Rate 55 [facility] Comment:Chronic Kidney Disea se: Estimated GFR < 60 mL/min/1.17o5Qhrycg Kidney Disease: Estimated GFR < 15 mL/min/1.73m2 Glucose 117(H) 60 - 115 mg/dL [facility] Calcium 9.3 8.4 - 10.2 mg/dL [facility] 12/08/2024 11:5 2 AM EDT 12/08/2024 11:55 AM EDT us Generic External Data Provider LAB BLOOD ORDERAB LES Final Result [facility] [address] [place] [address] [phone] * XR Chest 2 Views (12/08/2024 11:10 AM EDT) Anatomical Region Laterality Modality Chest Radiographic Dawn ging 12/08/2024 11:1 0 AM EDT Narrative 12/08/2024 12:17 PM EDT [address] [address] XRay Report Signed Patient: Walt Rajan MR #: [id number] : 1955 Acct:[id number] Age/Sex: 69 / F ADM Date: 12/08/24 Loc: HO.ED Attending Dr: Ordering Physician: Destinee Welch CNP Date of Service: 12/08/24 Procedure(s): XR chest 2V Accession Number(s): [id number] cc: Destinee Welch MECHANICAL DEVELOPER PROVER; TOM TRUJILLO NP EXAMINATION: XR CHEST 2 [...] 12/08/24 1214 DD/ 1110 TD/TT: 12/08/24 1208 Video Production Engineer: Procedure Note Donotuseinterpreter, Image - 12/08/[address] [address] XRay Report Signed Patient: Sid RajanR #: [id number] : 1955cct:[id number] Age/Sex: 69 / FADM Date: 12/08/24 Loc: HO.ED Attending Dr: Ordering Physician: Destinee Welch CNP Date of Service: 12/08/24 Procedure(s): XR chest 2V Accession Number(s): [id number] cc: Destinee Welch MECHANICAL DEVELOPER PROVER; TOM TRUJILLO NP EXAMINATION: XR CHEST 2 [...] 12/08/24 1214 DD/ 1110 TD/TT: 12/08/24 1208 Video Production Engineer: [facility] External Provider IMG XR PROCEDURES Final Result * CT Chest w/ Contrast (11/18/2024 11:00 AM EDT) Anatomical Region Laterality Modality Body, Chest Computed Tomogra phy 11/18/2024 11:0 0 AM EDT Narrative 11/18/2024 11:33 AM EDT [address] [address] [address] Scan Report Signed Patient: Walt Rajan MR #: [id number] : 1955 Acct:[id number] Age/Sex: 69 / F ADM Date: 11/18/24 Loc: HO.CT Attending Dr: Darius Tamayo MD Ordering Physician: Darius Tamayo MD Date of Service: 11/18/24 Procedure(s): CT chest w IV con Accession Number(s): [id number] cc: Darius Tamayo MD; TOM TRUJILLO NP Report Number: [id number]: Total DLP = 104.00 mGy-cm EXAMINATION: CT [...] 11/18/24 1130 DD/ 1100 TD/TT: 11/18/24 1117 Video Production Engineer: Procedure Note Donotuseinterpreter, Image - 11/18/[address] [address] [address] Scan Report Signed Patient: Kenyon Rajan #: [id number] : [id number]:[id number] Age/Sex: 69 / FADM Date: 11/18/24 Loc: HO.CT Attending Dr: Darius Tamayo MD Ordering Physician: Darius Tamayo MD Date of Service: 11/18/24 Procedure(s): CT chest w IV con Accession Number(s): [id number] cc: Darius Tamayo MD; TOM TRUJILLO NP Report Number: [id number]: Total DLP = 104.00 mGy-cm EXAMINATION: CT [...] 11/18/24 1130 DD/ 1100 TD/TT: 11/18/24 1117 Video Production Engineer: [facility] External Provider IMG CT PROCEDURES Final Result * XR Lumbar Spine 2-3 Views (11/18/2024 10:30 AM EDT) Anatomical Region Laterality Modality Spine, L-spine Radiographic Dawn ging 11/18/2024 10:3 0 AM EDT Narrative 11/18/2024 10:59 AM EDT [address] [address] XRay Report Signed Patient: Walt Rajan MR #: [id number] : 1955 Acct:[id number] Age/Sex: 69 / F ADM Date: 11/18/24 Loc: HO.CT Attending Dr: Darius Tamayo MD Ordering Physician: TOM TRUJILLO NP Date of Service: 11/18/24 Procedure(s): XR lumbar spine 2-3V Accession Number(s): [id number] cc: TOM TRUJILLO NP EXAMINATION: XR LUMBOSACRAL [...] 11/18/24 1056 DD/ 1030 TD/TT: 11/18/24 1034 Video Production Engineer: Procedure Note Donotuseinterpreter, Image - 11/18/[address] [address] XRay Report Signed Patient: Sid RajanR #: [id number] : [id number]:[id number] Age/Sex: 69 / FADM Date: 11/18/24 Loc: HO.CT Attending Dr: Darius Tamayo MD Ordering Physician: TOM TRUJILLO NP Date of Service: 11/18/24 Procedure(s): XR lumbar spine 2-3V Accession Number(s): [id number] cc: TOM TRUJILLO NP EXAMINATION: XR LUMBOSACRAL [...] 11/18/24 1056 DD/ 1030 TD/TT: 11/18/24 1034 Video Production Engineer: Tom Trujillo ANP IMG XR PROCEDURES Final Result * BI Mammogram Screening Tomosynthesis Bilateral (10/26/2024 1:20 PM EDT) Anatomical Region Laterality Modality Breast Bilateral Mammography 10/26/2024 1:20 PM EDT Narrative 11/01/2024 2:28 PM EDT [facility] [address] [place] [address] Mammography Report Signed Patient: Walt Rajan MR #: [id number] : 1955 Acct:[id number] Age/Sex: 69 / F ADM Date: 10/26/24 Loc: HO.MAMMO Attending Dr: Tom Trujillo HUMAN RESOURCES HR REPRESENTATIVE Ordering Physician: TOM TRUJILLO NP Results: 1Negative Date of Service: 10/26/24 Follow Up: 1 Year From Orig inal Mammogram Procedure(s): MM tomosynthesis screening BI Accession Number(s): [id number] cc: TOM TRUJILLO NP EXAMINATION: MM SCREENING [...] 11/01/24 1425 DD/ 1320 TD/TT: 10/26/24 1338 Video Production Engineer: Procedure Note Donotuseinterpreter, Image - 11/01/2024 [facility] [address] [place] [address] Mammography Report Signed Patient: Sid RajanR #: [id number] : 4Acct:[id number] Age/Sex: 69 / FADM Date: 10/26/24 Loc: LEE Attending Dr: Tom Trujillo NP Ordering Physician: TOM TRUJILLO NPResults: 1Negative Date of Service: 10/26/24Follow Up: 1 Year From Orig inal Mammogram Procedure(s): MM tomosynthesis screening BI Accession Number(s): [id number] cc: TOM TRUJILLO NP EXAMINATION: MM SCREENING [...] 11/01/24 1425 DD/ 1320 TD/TT: 10/26/24 1338 Video Production Engineer: Tom Trujillo ANP IMG BI PROCEDURES Edited Result - Final * Colonoscopy (10/10/2021) Colonoscopy Normal Normal Historical Provider HEALTH MAINTENANCE Final Result from Last 3 Months or Most Recently Relevant to Health Maintenance Insurance [employer]ARD Care Teams Bird Trapper Relationship Specialty Start Date End Date Tom Trujillo ANP [address] [place] [address] PCP - General Family Medicine 09/29/19 Everett Rojas MD [address] [place] [address] 3rd [place] [address] Cardiology 04/21/24
--- OUTSIDE RECORDS SUMMARY | 2025-02-05 14:48 | XMS_ITS | Encounter Summary ---
Author Organization [facility] Address [address] [place] [address] Care Team Providers Care Vice President Risk Management Name Role Phone Darius Tamayo MD Primary Care Provider [phone] Encounter Details Date Type Department Care Team (Late st Contact Info) Description 12/22/2024 Education [facility] Transplant Department [address] [place] [address] Sabrina Dahl RN Social History Tobacco Use [...] Description 02/12/2025 11:00 AM EDT Office Visit [facility] Building 4th floor Cardiology Medicine [address] [place] [address] Tram Driver: James Reynoso MD [address] [place] [address] 03/18/2025 2:00 PM EST Follow-Up [facility] Liver Transplant Services [address] [place] [address] Lauren Hancock MD [address] [place] [address] documented as of this encounter Visit Diagnoses Not on filedocumented in this encounter Care Teams Vice President Risk Management Relationship Specialty Start Date End Date Darius Tamayo MD [address] [place] [address] PCP - General Gastroenterology 12/22/24 documented as of this encounter
--- OUTSIDE RECORDS SUMMARY | 2025-02-05 14:48 | XMS_ITS | Encounter Summary ---
Author Organization [facility] Address [address] [place] [address] Care Team Providers Care Securities Broker Name Role Phone Darius Tamayo MD Primary Care Provider [phone] Encounter Details Date Type Department Care Team (Late st Contact Info) Description 01/07/2025 Results Follow-Up [facility] [address] [place] [address] Grounding Engineer: Lauren Hernandez MD [address] [place] [address] [phone] Social History Tobacco Use Types Packs/Day Years [...] Description 02/12/2025 11:00 AM EDT Office Visit [facility] Building 4th floor Cardiology Medicine [address] [place] [address] Grounding Engineer: James Reynoso MD [address] [place] [address] 03/18/2025 2:00 PM EST Follow-Up [facility] Liver Transplant Services [address] [place] [address] Lauren Hancock MD [address] [place] [address] documented as of this encounter Visit Diagnoses Not on filedocumented in this encounter Care Teams Securities Broker Relationship Specialty Start Date End Date Darius Tamayo MD [address] [place] [address] PCP - General Gastroenterology 12/22/24 documented as of this encounter
--- OUTSIDE RECORDS SUMMARY | 2025-02-05 14:48 | XMS_ITS ---
Author Organization [facility] Address [address] [place] [address] Care Team Providers Care Air Export Coordinator Name Role Phone Darius Tamayo MD Primary Care Provider [phone] Transplant Episode Liver Candidate [facility] ([place], [place]) [facility] Evaluation began on 12/22/2024 Marked as Active on 01/29/2025 Reason: Accepted, Pending Listing Labs/Tests Liver CoordinatorSabrina Dahl RN Phone: N/A Fax: N/A Email: N/A Scores Score Value Updated Expires Exceptions/[facility] CPRA Not available MELD (Calc) 9 12/22/2024 [place] Organ Diagnosis Organ Primary Contributory Liver Primary Liver Malign kary: Hepatoma (HCC) and Cirrhosis 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) Care Team Name Role Phone Fax Email Sabrina Dahl RN Liver Coordinator N/A N/A N/A Lauren Hancock MD Receptionist Clerk [phone] [email or web address] Darius Tamayo MD Referring Physician [phone] Events Pre-Transplant Referred: 12/01/2024 Evaluation began: 12/22/2024 Committee: 01/28/2025 Appointments (01/05/2025 - 03/07/2025) When With Visit Type Description 01/15/2025 Transplant - Magen Pagan Transplant Evaluation Visit 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); Chronic hepatitis C with cirrhosis (HCC); Portal hypertension (HCC); HCC (hepatocellular carcinoma) (HCC); Atrial fib/flutter, transient (HCC) 01/15/2025 Transplant - Chang Posey Transplant Evaluation Visit Encounter for pre-transplant evaluation for chronic liver disease (Primary Dx); Metabolic dysfunction-associated steatohepatitis (MASH); Hepatocellular carcinoma (HCC); Chronic hepatitis C without hepatic coma (HCC); Screening examination for infectious disease; Positive CMV IgG serology; EBV seropositivity; Immune to hepatitis B; Immune to hepatitis A 01/15/2025 Transplant - Charles ramirez M Transplant Evaluation Visit Encounter for pre-transplant evaluation for liver transplant (Primary Dx) 01/15/2025 Transplant - Sisi Blank Transpla nt Evaluation Visit Encounter for pre-transplant evaluation for chronic liver disease (Primary Dx) 01/15/2025 Transplant - Magen Mcgregor Transplant Evaluation Visit 01/15/2025 Transplant - Sisi Robb Transpla nt Evaluation Visit Encounter for pre-transplant evaluation for liver transplant
[2025-02-05 16:04] LABS: MANUAL DIFF FLAG NO
[2025-02-05 16:12] LABS: Hematocrit 39.9 % (37.0-47.0); Hemoglobin 12.8 g/dl (12.0-16.0); Imm Gran Abs Auto 0.02 X10*3/uL (0.00-0.03); Imm Gran Pct Auto 0.4 % (0.0-0.4); Lymphocytes Absolute Auto 0.8 X10*3/uL (1.2-4.9); Mean Corpuscular HGB Conc 32.1 g/dl (31.0-35.0); Mean Corpuscular Hemoglobin 28.7 pg (27.0-33.0); Mean Corpuscular Volume 89.5 fL (80.0-98.0); NRBC Abs Auto 0.000 X10*3/uL (0.0-0.012); NRBC Pct Auto 0.0 /100WBC (0.0-0.2); Platelet Count 159 X10*3/uL (160-400); Red Blood Count 4.46 X10*6/uL (4.20-5.50); White Blood Count 5.6 X10*3/uL (4.8-10.8)
[2025-02-05 16:23] LABS: Alanine Aminotransferase 54 U/L (0-31); Albumin Level 3.6 g/dL (3.5-5.0); Alkaline Phosphatase 65 U/L (39-117); Anion Gap 11 (12-20); Aspartate Amino Transferase 43 U/L (5-31); Blood Urea Nitrogen 15 mg/dL (9-16); Calcium 10.0 mg/dL (8.4-10.2); Carbon Dioxide 33 mmol/L (22-29); Chloride 99 mmol/L (96-108); Estimated Glomerular Filt Rate > 60; Potassium 3.6 mmol/L (3.3-5.1); Sodium 139 mmol/L (135-145); Total Protein 7.6 g/dL (6.5-8.0)
[2025-02-06 10:59] LABS: Uric Acid 5.9 mg/dL (2.4-5.7)
== END 2025-02-05 13:29 | disposition home or self-care (01) ==
LOC: HO.HHCX 13:28
PROVIDERS: Visit Provider Internal Medicine
DX: M79.644 Pain in right finger(s) (principal)
CPT/HCPCS: 36415; 73130; 80053; 84550; 85025; 85652; 86140

== ENCOUNTER → 2025-02-05 13:29 | Outpatient (BNV) | payer MEDICARE, MEDICAID, SELFPAY | PROVIDERS: Visit Provider Radiology Diagnostic Radiology | DX: M19.041 Primary osteoarthritis, right hand (principal) | CPT/HCPCS: 73130 ==

== ENCOUNTER 2025-02-05 14:05 | Outpatient (REF) | payer MEDICARE, MEDICAID, SELFPAY | END 2025-02-05 14:06 | disposition home or self-care (01) | LOC: HO.HHCL 14:05 | PROVIDERS: PCP Nurse Practitioner Primary Care; Visit Provider Internal Medicine | DX: Z13.89 Encounter for screening for other disorder (principal) ==

== ENCOUNTER 2025-03-01 10:18 | Outpatient (REF) | payer MEDICARE, MEDICAID, SELFPAY ==
[2025-03-01 10:37] LABS: MANUAL DIFF FLAG NO
[2025-03-01 11:25] LABS: Hemoglobin 12.6 g/dl (12.0-16.0); NRBC Abs Auto 0.000 X10*3/uL (0.0-0.012); NRBC Pct Auto 0.0 /100WBC (0.0-0.2); PLT CLUMP 1; SCAN SMEAR FLAG 1
[2025-03-01 11:27] LABS: Hematocrit 40.0 % (37.0-47.0); Imm Gran Abs Auto 0.01 X10*3/uL (0.00-0.03); Imm Gran Pct Auto 0.2 % (0.0-0.4); Lymphocytes Absolute Auto 0.9 X10*3/uL (1.2-4.9); Mean Corpuscular HGB Conc 31.5 g/dl (31.0-35.0); Mean Corpuscular Hemoglobin 29.2 pg (27.0-33.0); Mean Corpuscular Volume 92.6 fL (80.0-98.0); Red Blood Count 4.32 X10*6/uL (4.20-5.50)
[2025-03-01 11:29] LABS: Platelet Count 105 X10*3/uL (160-400); White Blood Count 4.1 X10*3/uL (4.8-10.8)
[2025-03-01 11:34] LABS: INTERNATIONAL NORM RATIO 1.5 (0.9-1.1); Prothrombin Time 17.4 SEC (10.9-12.4)
[2025-03-01 12:07] LABS: Alanine Aminotransferase 55 U/L (0-31); Albumin Level 3.8 g/dL (3.5-5.0); Alkaline Phosphatase 40 U/L (39-117); Anion Gap 13 (12-20); Aspartate Amino Transferase 37 U/L (5-31); Blood Urea Nitrogen 22 mg/dL (9-16); Calcium 9.5 mg/dL (8.4-10.2); Carbon Dioxide 31 mmol/L (22-29); Chloride 103 mmol/L (96-108); Estimated Glomerular Filt Rate > 60; Potassium 3.4 mmol/L (3.3-5.1); Sodium 144 mmol/L (135-145); Total Protein 6.9 g/dL (6.5-8.0)
== END 2025-03-01 10:19 | disposition home or self-care (01) ==
LOC: HO.LAB 10:18
PROVIDERS: PCP Nurse Practitioner Primary Care; Visit Provider Internal Medicine Transplant Hepatology
DX: Z01.818 Encounter for other preprocedural examination (principal); Z76.82 Awaiting organ transplant status
CPT/HCPCS: 36415; 80053; 82105; 85025; 85610; 86682; 86900; 86901

== ENCOUNTER 2025-03-15 12:31 | Outpatient (REF) | payer MEDICARE, MEDICAID, SELFPAY ==
[2025-03-15 13:35] LABS: MANUAL DIFF FLAG NO
[2025-03-15 14:02] LABS: Hematocrit 37.1 % (37.0-47.0); Hemoglobin 12.1 g/dl (12.0-16.0); Imm Gran Abs Auto 0.01 X10*3/uL (0.00-0.03); Imm Gran Pct Auto 0.3 % (0.0-0.4); Lymphocytes Absolute Auto 0.7 X10*3/uL (1.2-4.9); Mean Corpuscular HGB Conc 32.6 g/dl (31.0-35.0); Mean Corpuscular Hemoglobin 29.6 pg (27.0-33.0); Mean Corpuscular Volume 90.7 fL (80.0-98.0); NRBC Abs Auto 0.000 X10*3/uL (0.0-0.012); NRBC Pct Auto 0.0 /100WBC (0.0-0.2); Platelet Count 125 X10*3/uL (160-400); Red Blood Count 4.09 X10*6/uL (4.20-5.50); White Blood Count 3.7 X10*3/uL (4.8-10.8)
[2025-03-15 14:37] LABS: Uric Acid 6.8 mg/dL (2.4-5.7)
== END 2025-03-15 12:32 | disposition home or self-care (01) ==
LOC: HO.LAB 12:31
PROVIDERS: Absent Provider Nurse Practitioner Primary Care; PCP Nurse Practitioner Primary Care; Visit Provider Internal Medicine Gastroenterology
DX: C22.0 Liver cell carcinoma (principal); R79.82 Elevated C-reactive protein (CRP); M79.644 Pain in right finger(s)
CPT/HCPCS: 36415; 84550; 85025; 85652; 86140; 86200; 99212

== ENCOUNTER 2025-03-15 12:31 | Outpatient (AMB) | payer MEDICARE, MEDICAID, SELFPAY ==
--- NOTE | 2025-03-15 12:34 | MHC.OFFVIS ---
Vital Signs 03/15/25 12:36 Height 4 ft 11 in Weight 152 lb 1.903 oz BMI 30.7 BP 113/56 L Blood Pressure Location Lt brachial Position Sitting Pulse 78 Intake Visit Reasons: 3 /4 mo f/u Intake Note: Walt presents in the office as sa 3/4 month follow up. CC: States that she is feeling okay - had an ablaition for her liver cancer. Cement Finisher Apprentice Required: No Allergies rivaroxaban (From XARELTO) Allergy (Intermediate, Verified 03/15/25 12:39) GI BLEEDING SEAFOOD Allergy (Intermediate, Uncoded 03/15/25 12:39) RASH HPI HPI 3 /4 mo f/u: Details: 69 y/o woman w/ HTN, asthma, p-A-fib presenting today for f/u for compensated cirrhosis. RECAP: Had been seeing Dr austin for cirrhosis, presumed due to CARTWRIGHT or prior Hep C (treated 2015) never been heavy drinker she got the covid vaccine MELD 9 in the past Hep C serology pos but PCR was negative MRI 07/2021- cirrhosis, gallstones EGD/colonoscopy-09/2021- x 1 varix noted, H pylori pos and treated with levo, amoxil and pantoprazole, TA removed EGD: 12/03-- flat varix MRI: x 2 lesions seg I and VIII - both 2.4 cm INTERIM: she had TAACE and recovering now, done in January 04 she has mild headache she is going to [facility] she is on the liver transplant list she ahs no other concerns otherwise memory is good no melena EXAM: GENERAL: The patient is well developed and nontoxic. VITAL SIGNS:see workflow HEENT: Nonicteric sclerae, PERRLA, EOMI. Oropharynx clear. Moist mucous membranes. Conjunctivae appear well perfused. No thyroid mass. CHEST: Chest wall is nontender. HEART: Regular rate and rhythm without murmurs. LUNGS: Clear to auscultation bilaterally. ABDOMEN: Soft, positive bowel sounds, nontender, no organomegaly.no flank tenderness SKIN: No rash, no excessive bruising, petechiae, or purpura. NEUROLOGIC: Cranial nerves II-XII intact without motor/sensory deficit. A/P: 1. Cirrhosis, prob CARTWRIGHT related or from prior Hep C- 2. hx of TA 3. H pylori s/p treatment--cured plan; HCV PCR neg 2/ get [facility] notes 3/ varices--repeat EGD, in 2-3 yr--- 4/ HE-no overt evidence 5/ ascites: no evidence of ascites on exam 6/ has f.u with Dr Fernandez but seems to have responded well to TACE PFSH Medical History Hemorrhage of gastrointestinal tract, unspecified PAF (paroxysmal atrial fibrillation) Tubular adenoma of colon Low vitamin D level Atrial fibrillation Cirrhosis of liver Asthma Hepatitis B Surgical History Hx of cataract surgery History of eyelid surgery History of esophagogastroduodenoscopy (EGD) Hx of colonoscopy History of total abdominal hysterectomy and bilateral salpingo-oophorectomy History of 3 sections Family History Father No problems noted. Mother No problems noted. 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
[2025-03-15 12:36] VITALS: BP 113/56; PULSE 78; BMI 30.7
--- OUTSIDE RECORDS SUMMARY | 2025-03-15 15:37 | XMS_ITS | Encounter Summary ---
Author Organization [employer] Address [address] [place] [address] 7t [place] [address] Care Team Providers Care Underground Truck Operator Name Role Phone Sudha Mitchell Primary Care Provider [phone] Everett Rojas MD Unavailable [phone] Reason for Visit * Reason Onset Date Comments Med Refill 11/23/2022 Encounter Details Date Type Department Care Team (Late st Contact Info) Description 11/23/2022 Telephone [facility] MEDICINE [address] [place] [address] Sudha Mitchell ANP [address] [place] [address] Med Refill Social History Tobacco Use Types [...] Department Care Team (Late Contact Info) Description 03/22/2025 2:00 PM EST Office Visit [facility] MEDICINE [address] [place] [address] Sudha Mitchell ANP [address] [place] [address] documented as of this encounter Visit Diagnoses Not on filedocumented in this encounter Care Teams Underground Truck Operator Relationship Specialty Start Date End Date Sudha Mitchell ANP [address] [place] [address] PCP - General Family Medicine 09/29/19 Everett Rojas MD [address] [place] [address] 3rd [place] [address] Cardiology 04/21/24 documented as of this encounter
--- OUTSIDE RECORDS SUMMARY | 2025-03-15 15:38 | XMS_ITS | Encounter Summary ---
Author Organization [employer] Address [address] [place] [address] 7t [place] [address] Care Team Providers Care Health Clinician Name Role Phone Sudha Mitchell Primary Care Provider Everett Rojas MD Unavailable [phone] Reason for Visit * Reason Comments Med Refill Encounter Details Date Type Department Care Team (Late st Contact Info) Description 01/22/2023 Refill [facility] MEDICINE [address] [place] [address] [phone] Sudha Mitchell ANP [address] [place], [place] [phone] Lumbago of lumbar region with sciatica Social [...] Care Team (Late st Contact Info) Description 03/22/2025 2:00 PM EST Office Visit [facility] MEDICINE [address] [place] [address] [phone] Sudha Mitchell ANP [address] [place], [place] [phone] documented as of this encounter Visit Diagnoses Diagnosis Lumbago of lumbar region with sciatica documented in this encounter Care Teams Health Clinician Relationship Specialty Start Date End Date Sudha Mitchell ANP [address] [place] [address] PCP - General Family Medicine 09/29/19 Everett Rojas MD [address] [place] [address] 3rd [place] [address] Cardiology 04/21/24 documented as of this encounter
--- OUTSIDE RECORDS SUMMARY | 2025-03-15 15:38 | XMS_ITS | Encounter Summary ---
Author Organization [employer] Address [address] [place] [address] [address] [place] [address] Care Team Providers Care Laundry Machine Mechanic Name Role Phone Sudha Mitchell Primary Care Provider Everett Rojas MD Unavailable [phone] Reason for Visit * Reason Comments Med Refill Encounter Details Date Type Department Care Team (Late st Contact Info) Description 08/14/2022 Refill [facility] MEDICINE [address] [place] [address] [place] [facility] [address] [place] [address] Lumbago of lumbar region with sciatica Social [...] Description 03/22/2025 2:00 PM EST Office Visit [facility] MEDICINE [address] [place] [address] Sudha Mitchell ANP [address] [place] [address] documented as of this encounter Visit Diagnoses Diagnosis Lumbago of lumbar region with sciatica documented in this encounter Care Teams Laundry Machine Mechanic Relationship Specialty Start Date End Date Sudha Mitchell ANP [address] [place] [address] PCP - General Family Medicine 09/29/19 Everett Rojas MD [address] [place] [address] Drive 3rd [place] [address] Cardiology 04/21/24 documented as of this encounter
--- OUTSIDE RECORDS SUMMARY | 2025-03-15 15:38 | XMS_ITS | Encounter Summary ---
Author Organization [employer] Address [address] [facility] 7t [place] [address] Care Team Providers Care It Programmer Analyst Name Role Phone Sudha Mitchell Primary Care Provider [phone] Everett Rojas MD Unavailable [phone] Reason for Visit * Reason Comments Med Refill Encounter Details Date Type Department Care Team ([facility] st Contact Info) Description 03/12/2025 Refill [facility] [address] [place] [address] Sudha Mitchell ANP [address] [place] [address] Moderate persistent asthma without complication Social History Tobacco Use Types Packs/Day Years [...] 2:00 PM EST Office Visit [facility] MEDICINE [address] [place] [address] Sudha Mitchell ANP [address] [place] [address] documented as of this encounter Visit Diagnoses Diagnosis Moderate persistent asthma without complication documented in this encounter Additional Health Concerns Assessment Noted Time PHQ-9 Depression Total Score: 7 10/08/19 25 7:52 AM EDT documented as of this encounter Care Teams It Programmer Analyst Relationship Specialty Start Date End Date Sudha Mitchell ANP [address] [place] [address] PCP - General Family Medicine 09/29/19 Everett Rojas MD [address] 3rd [place] [address] Cardiology 04/21/24 documented as of this encounter
--- OUTSIDE RECORDS SUMMARY | 2025-03-15 15:38 | XMS_ITS | Encounter Summary ---
Author Organization [employer] Address [address] [place] [address] 7t [place] [address] Care Team Providers Care Groundskeeping Yardman Name Role Phone Sudha Mitchell Primary Care Provider Everett Rojas MD Unavailable [phone] Reason for Visit * Reason Comments Med Refill Encounter Details Date Type Department Care Team (Late Contact Info) Description 05/02/2022 Refill [facility] PEDS [address] [place], [place] [phone] Sudha Mitchell ANP [address] [place] [address] Cervicalgia Social History Tobacco Use Types Packs/Day [...] Upcoming Encounters Date Type Department Care Team ([facility] Contact Info) Description 03/22/2025 2:00 PM EST Office Visit [facility] MEDICINE [address] [place] [address] Sudha Mitchell ANP [address] [place] [address] documented as of this encounter Visit Diagnoses Diagnosis Cervicalgia documented in this encounter Care Teams Groundskeeping Yardman Relationship Specialty Start Date End Date Sudha Mitchell ANP [address] [place] [address] PCP - General Family Medicine 09/29/19 Everett Rojas MD [address] [place] [address] Drive 3rd Floor [place] [address] Cardiology 04/21/24 documented as of this encounter
--- OUTSIDE RECORDS SUMMARY | 2025-03-15 15:38 | XMS_ITS | Encounter Summary ---
Author Organization [employer] Address [address] [facility] [address] [address] 7t [place] [address] Care Team Providers Care Ironworker Machine Operator Name Role Phone Sudha Mitchell Primary Care Provider [phone] Everett Rojas MD Unavailable [phone] Reason for Visit * Reason Comments Med Refill Encounter Details Date Type Department Care Team ([facility] st Contact Info) Description 09/18/2023 Refill C [facility] [address] [place] [address] Sudha Mitchell ANP [address] [place] [address] Lumbago of lumbar region with sciatica Social [...] Description 03/22/2025 2:00 PM EST Office Visit [facility] MEDICINE [address] [place] [address] Sudha Mitchell ANP [address] [place] [address] documented as of this encounter Visit Diagnoses Diagnosis Lumbago of lumbar region with sciatica documented in this encounter Care Teams Ironworker Machine Operator Relationship Specialty Start Date End Date Sudha Mitchell ANP [address] [place] [address] PCP - General Family Medicine 09/29/19 Everett Rojas MD [address] [place] [address] 3rd [place] [address] Cardiology 04/21/24 documented as of this encounter
--- OUTSIDE RECORDS SUMMARY | 2025-03-15 15:38 | XMS_ITS | Encounter Summary ---
Author Organization [employer] Address [address] [place] [address] 7t [place] [address] Care Team Providers Care Knock Out Hand Name Role Phone Sudha Mitchell Primary Care Provider Everett Rojas MD Unavailable Reason for Visit * Reason Comments Med Refill Encounter Details Date Type Department Care Team (Late st Contact Info) Description 06/22/2022 Refill [facility] MEDICINE [address] [place] [address] Sudha Mitchell ANP [address] [place] [address] Lumbago of lumbar region with sciatica Social [...] 03/22/2025 2:00 PM EST Office Visit [facility] MEDICINE [address] [place] [address] Sudha Mitchell ANP [address] [place] [address] documented as of this encounter Visit Diagnoses Diagnosis Lumbago of lumbar region with sciatica documented in this encounter Care Teams Knock Out Hand Relationship Specialty Start Date End Date Sudha Mitchell ANP [address] [place] [address] PCP - General Family Medicine 09/29/19 Everett Rojas MD [address] [place] [address] 3rd [place] [address] Cardiology 04/21/24 documented as of this encounter
--- OUTSIDE RECORDS SUMMARY | 2025-03-15 15:39 | XMS_ITS | Encounter Summary ---
Author Organization [employer] Address [address] [facility] 7t [place] [address] Care Team Providers Care Bleach Boiler Puller Name Role Phone Sudha Mitchell Primary Care Provider [phone] Everett Rojas MD Unavailable Reason for Visit * Reason Onset Date Comments Pre-op Visit 12/20/2023 Encounter Details Date Type Department Care Team ([facility] st Contact Info) Description 12/20/2023 Telephone [facility] MEDICINE [address] [place] [address] Sudha Mitchell ANP [address] [place] [address] Pre-op Visit Social History Tobacco Use Types [...] [facility] Surgeon's office number: [phone] Ext [phone] Surgeon's office fax number: [phone] Contact name: Mara Last office note from surgeon requested: Yes documented in this encounter Plan of Treatment Upcoming Encounters Date Type Department Care Team (Late st Contact Info) Description 03/22/2025 2:00 PM EST Office Visit [facility] MEDICINE [address] [place] [address] Sudha Mitchell ANP [address] [place] [address] documented as of this encounter Visit Diagnoses Not on filedocumented in this encounter Care Teams Bleach Boiler Puller Relationship Specialty Start Date End Date Sudha Mitchell ANP [address] [place] [address] PCP - General Family Medicine 09/29/19 Everett Rojas MD [address] [place] [address] Drive 3rd [place] [address] Cardiology 04/21/24 documented as of this encounter
--- OUTSIDE RECORDS SUMMARY | 2025-03-15 15:39 | XMS_ITS | Encounter Summary ---
Author Organization [employer] Address [address] [facility] 7t [place] [address] Care Team Providers Care Oil Seal Assembler Name Role Phone Sudha Mitchell Primary Care Provider [phone] Everett Rojas MD Unavailable [phone] Reason for Visit * Reason Comments Med Refill Encounter Details Date Type Department Care Team ([facility] st Contact Info) Description 10/18/2023 Refill [facility] [address] [place] [address] Sudha Mitchell ANP [address] [place] [address] Lumbago of lumbar region with sciatica Social [...] Description 03/22/2025 2:00 PM EST Office Visit [facility] [address] [place] [phone] Sudha Mitchell ANP [address] [place] [phone] documented as of this encounter Visit Diagnoses Diagnosis Lumbago of lumbar region with sciatica documented in this encounter Care Teams Oil Seal Assembler Relationship Specialty Start Date End Date Sudha Mitchell ANP [address] [place] [id number] PCP - General Family Medicine 09/29/19 Everett Rojas MD [address] [place] [address] 3rd [place] [address] Cardiology 04/21/24 documented as of this encounter
--- OUTSIDE RECORDS SUMMARY | 2025-03-15 15:39 | XMS_ITS | Encounter Summary ---
Author Organization [employer] Address [address] [facility] [address] 7t [place] [address] Care Team Providers Care Healthcare Manager Name Role Phone Sudha Mitchell Primary Care Provider [phone] Everett Rojas MD Unavailable [phone] Reason for Visit * Reason Comments Med Refill Encounter Details Date Type Department Care Team ([facility] st Contact Info) Description 02/20/2024 Refill [facility] [address] [place] [address] Sudha Mitchell ANP [address] [place] [address] Lumbago of lumbar region with sciatica Social [...] Description 03/22/2025 2:00 PM EST Office Visit [facility] [address] [place] [phone] Sudha Mitchell ANP [address] [place] [address] documented as of this encounter Visit Diagnoses Diagnosis Lumbago of lumbar region with sciatica documented in this encounter Care Teams Healthcare Manager Relationship Specialty Start Date End Date Sudha Mitchell ANP [address] [place] [phone] PCP - General Family Medicine 09/29/19 Everett Rojas MD [address] 3rd [place] [address] Cardiology 04/21/24 documented as of this encounter
--- OUTSIDE RECORDS SUMMARY | 2025-03-15 15:39 | XMS_ITS | Encounter Summary ---
Author Organization [employer] Address [address] [facility] 7t [place] [address] Care Team Providers Care Boring Machine Operator Vertical Name Role Phone Sudha Mitchell Primary Care Provider [phone] Everett Rojas MD Unavailable [phone] Encounter Details Date Type Department Care Team ([facility] st Contact Info) Description 03/15/2025 Refill [facility] [address] [place] [address] Sudha Mitchell ANP [address] [place] [address] Social History Tobacco Use Types Packs/Day Years [...] Description 03/22/2025 2:00 PM EST Office Visit [facility] [address] [place] [address] Sudha Mitchell ANP [address] [place] [address] documented as of this encounter Visit Diagnoses Not on filedocumented in this encounter Additional Health Concerns Assessment Noted Time PHQ-9 Depression Total Score: 7 10/08/19 25 7:52 AM EDT documented as of this encounter Care Teams Boring Machine Operator Vertical Relationship Specialty Start Date End Date Sudha Mitchell ANP [address] [place] [phone] PCP - General Family Medicine 09/29/19 Everett Rojas MD [address] 3rd [place] [address] Cardiology 04/21/24 documented as of this encounter
--- OUTSIDE RECORDS SUMMARY | 2025-03-15 15:39 | XMS_ITS | Encounter Summary ---
Author Organization [employer] Address [address] [place] [address] 7t [place] [address] Care Team Providers Care Rehabilitation Attendant Name Role Phone Stephen Sudha WEI Primary Care Provider Everett Rojas MD Unavailable Reason for Visit * Reason Comments Med Refill Encounter Details Date Type Department Care Team ([facility] st Contact Info) Description 12/30/2023 Refill [facility] [address] [place] [address] Fabi Boudreaux MD [address] [place] [address] Lumbago of lumbar region with sciatica Social [...] Description 03/22/2025 2:00 PM EST Office Visit [facility] [address] [place] [phone] Sudha Mitchell ANP [address] [place] [phone] documented as of this encounter Visit Diagnoses Diagnosis Lumbago of lumbar region with sciatica documented in this encounter Care Teams Rehabilitation Attendant Relationship Specialty Start Date End Date Sudha Mitchell ANP [address] [place] [phone] PCP - General Family Medicine 09/29/19 Everett Rojas MD [address] [place] [address] 3rd [place] [address] Cardiology 04/21/24 documented as of this encounter
--- OUTSIDE RECORDS SUMMARY | 2025-03-15 15:39 | XMS_ITS | Encounter Summary ---
Author Organization [employer] Address [address] [facility] 7t [place] [address] Care Team Providers Care Library Aide Name Role Phone Sudha Mitchell Primary Care Provider [phone] Everett Rojas MD Unavailable Reason for Visit * Reason Comments Med Refill Encounter Details Date Type Department Care Team ([facility] st Contact Info) Description 03/23/2024 Refill [facility] [address] [place] [address] Sudha Mitchell ANP [address] [place] [address] Lumbago of lumbar region with sciatica Social [...] Description 03/22/2025 2:00 PM EST Office Visit [facility] [address] [place] [phone] Sudha Mitchell ANP [address] [place] [address] documented as of this encounter Visit Diagnoses Diagnosis Lumbago of lumbar region with sciatica documented in this encounter Care Teams Library Aide Relationship Specialty Start Date End Date Sudha Mitchell ANP [address] [place] [phone] PCP - General Family Medicine 09/29/19 Everett Rojas MD [address]rd [place] [address] Cardiology 04/21/24 documented as of this encounter
--- OUTSIDE RECORDS SUMMARY | 2025-03-15 15:40 | XMS_ITS | Encounter Summary ---
Author Organization [facility] Address [address] [place] [address] Care Team Providers Care Professional Nursing Assistant Name Role Phone Darius Tamayo MD Primary Care Provider Encounter Details Date Type Department Care Team (Late st Contact Info) Description 03/02/2025 Results [facility] [address] [place] [phone] Sabrina Dahl RN Social History Tobacco Use [...] Care Team (Late st Contact Info) Description 03/18/2025 2:00 PM EST [facility] [address] [place] [phone] Lauren Hancock MD [address] [place] [phone] 04/02/2025 10:00 AM EST Office Visit [facility] 4th floor Cardiology Medicine [address] [place] [phone] Broom Stitcher: James Reynoso MD [address] [place] [phone] documented as of this encounter Visit Diagnoses Not on filedocumented in this encounter Care Teams Professional Nursing Assistant Relationship Specialty Start Date End Date Darius Tamayo MD [address] [place] [phone] PCP - General Gastroenterology 12/22/24 documented as of this encounter
--- OUTSIDE RECORDS SUMMARY | 2025-03-15 15:40 | XMS_ITS | Clinical Summary ---
Author Organization [employer] Address [address] [facility] 7[address] [place] [address] Care Team Providers Care Salt Grinder Name Role Phone Stephen Tom WEI Primary Care Provider [phone] Everett Rojas MD Unavailable [phone] Allergies Active Allergy Reactions Criticality Noted Date [...] MIX WITH CERAVE DIRECTED 80 g 1 Active ceramides (CeraVe) moisturizing creamIndication s:Venous stasis [...] MORNING AND AT BEDTIME 180 tablet 3 Active montelukast (Singulair) 10 MG tablet TAKE 1 TABLET BY MOUTH AT BEDTIME 90 tablet 3 Active metoprolol tartrate (Lopressor) 50 MG tablet 50 mg. Active atorvastatin (Lipitor) 20 MG tablet Take 20 mg by mouth Once per day. 025 2025 Active lidocaine (Lidoderm) 5 % patchIndication s:Neck pain Apply 1 patch topically Once per day. 30 patch 3 Active Diclofenac Sodium 1 % gelIndications: Neck pain Apply 2 G up to 4x/d as needed for joint pain 100 g 2 025 Active tiZANidine (Zanaflex) 2 MG tabletIndicatio ns: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ciatica Take 1 tab as needed up to TID for muscle pain/spasm 30 tablet 025 Active traMADol (Ultram) 50 MG tabletIndicatio ns:Lumbago of lumbar region with sciatica Take 1 tablet (50 mg) by mouth every 12 (twelve) hours if needed for severe pain. 56 tablet 025 Active Arnuity Ellipta 100 MCG/ACT inhalerIndicati ons:Moderate persistent asthma without complication INHALE 1 PUFF BY MOUTH EVERY DAY AT THE SAME TIME RINSE MOUTH AFTER USING. DO NOT SWALLOW. 30 each 1 025 Active traMADol (Ultram) 50 MG tabletIndicatio ns:Lumbago of lumbar region with sciatica Take 1 tablet (50 mg) by mouth every 12 (twelve) hours if needed for severe pain. 56 tablet 025 2024 Discontinued(R eorder (will not trigger notification to Pharmacy)) traMADol (Ultram) 50 MG tabletIndicatio ns:Neck pain Take 1 tablet (50 mg) by mouth every 12 (twelve) hours if needed for severe pain. 10 tablet 025 2024 Discontinued(T herapy completed) Asmanex HFA 100 MCG/ACT aerosol INHALE 1 PUFF BY MOUTH TWICE DAILY RINSE MOUTH AFTER USING. 13 g 5 025 2024 Discontinued(A lternate therapy) fluticasone furoate (Arnuity Ellipta) 100 MCG/ACT inhalerIndicati ons:Moderate persistent asthma without complication Inhale 1 puff Once per day. Rinse mouth with water after use to reduce aftertaste and incidence of candidiasis. Do not swallow. 30 each 1 025 2024 Discontinued predniSONE (Deltasone) 20 MG tabletIndicatio ns:Pain in finger of right hand Take 2 tablets (40 mg) by mouth Once per day for 14 days. 28 tablet 025 2024 Discontinued predniSONE (Deltasone) 10 MG tabletIndicatio ns:Pain in finger of right hand Take 2 tablets (20 mg) by mouth Once per day for 3 days, THEN 1 tablet (10 mg) Once per day for 3 days, THEN 0.5 tablets (5 mg) Once per day for 4 days. 11 tablet 2024 Active Problems Problem Noted Date Diagnosed Date Adjustment disorder with mixed anxiety and depre ssed mood 10/07/2024 Hepatocellular carcinoma (CMS/HCC) 09/16/2024 Overview (09/16/2024): As seen on MRI [...] in cirrhosis 04/16/2023 Overview (10/06/2024): EGDs via [facility] History of Helicobacter pylori infection 023 Overview (04/16/2023): tx'd 10/2021 via [facility] Cirrhosis of liver without ascites 04/16/2023 Overview (10/06/2024): compensated. thought to be d/t CARTWRIGHT vs. HCV. Follows w/ [facility] and had abd MRI to eval liver lesion 07/2022. 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 11/19/2022 Overview (11/19/2022): MRI 01/01/2022 findings copied into 09/18/22 note for reference Thrombocytopenia 03/20/2018 Trigger finger of both hands 03/20/2018 Neoplasm of liver 11/10/2017 Paroxysmal atrial fibrillation (CMS/HCC) 016 Atherosclerosis of [place] co ronary artery of [place] heart with stable angina pectoris 11/25/2015 Benign essential hypertension 11/25/2015 Chronic hepatitis C (CMS/HCC) 11/25/2015 Moderate persistent asthma 11/25/2015 Resolved Problems Problem Noted Date Diagnosed Date Resolved Date Mild depression 10/07/2024 10/07/2024 Encounters Date Type Department Care Team Description 03/15/2025 Refill [facility] [address] [place] [phone] Tom Trujillo ANP 03/12/2025 Refill [facility] [address] [place] [address] Tom Trujillo ANP Moderate persistent asthma without complication 02/17/2025 Telephone [facility] [address] [place] [address] Nichole Lucio RN 02/16/2025 11:15 AM EDT Office Visit [facility] [address] [place] [phone] Tom Trujillo ANP Hepatocellular carcinoma (CMS/HCC) (HCC) (Primary Dx); Encounter for immunization; Elevated C-reactive protein (CRP); Pain in finger of right hand; Lumbago of lumbar region with sciatica 02/16/2025 Travel 02/15/2025 Telephone [facility] [address] [place] [phone] Tom Trujillo ANP chart prep 02/09/2025 Telephone [facility] [address] [place] [address] Nichole Lucio RN 02/09/2025 Results Follow-Up [facility] [address] [place] [address] Anabela Carlson MD Uric acid 02/06/2025 Results Follow-Up [facility] [address] [place] [address] Anabela Carlson MD Comprehensive Metabolic Panel, CBC auto differential, Sed Rate by Modified Westergren, C-reactive Protein 02/06/2025 Orders Only [facility] [address] [place] [address] Anabela Carlson MD Pain in finger of right hand (Primary Dx) 02/05/2025 1:00 PM EDT Office Visit [facility] [address] [place] [phone] Anabela Carlson MD Pain in finger of right hand (Primary Dx) 02/05/2025 Travel 01/26/2025 Orders Only GENERIC EXTERNAL DATA DEPARTMENT Provider, Generic External Data 01/22/2025 Refill [facility] [address] [place] [address] Harris Castro MD Moderate persistent asthma without complication (Primary Dx) 01/22/2025 Telephone [facility] [address] [place] [phone] Tom Trujillo ANP Tracheostomy Tube Check 01/20/2025 6:00 PM EDT Office Visit [facility] [address] [place] [phone] Tom Trujillo ANP 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ciatica (Primary Dx) 01/20/2025 Travel 01/19/2025 Results Follow-Up [address] [address] Marcela Crook MD XR CERVICAL SPINE 3V 01/18/2025 1:45 PM EDT Office Visit [address] [address] Marcela Crook MD Neck pain (Primary Dx); Dietary counseling; Exercise counseling; Class 1 obesity due to excess calories with serious comorbidity and body mass index (BMI) of 31.0 to 31.9 in adult 01/18/2025 Travel 01/18/[address] [address] Tom Trujillo ANP Nurse Triage 01/13/2025 Travel 01/13/2025 Telephone [facility] [address] [place] [address] Nichole Lucio RN 01/08/2025 Telephone [facility] [address] [place] [phone] Nichole Lucio RN 01/04/2025 Orders Only GENERIC EXTERNAL DATA DEPARTMENT Provider, Generic External Data 12/30/2024 Telephone [facility] [address] [facility], [place] [phone] Nita Mendoza, concrete laborer Question 12/25/2024 Telephone [facility] [address] [facility], [place] [phone] Connie Felipe RN Medication Question 12/25/2024 Orders Only [facility] [address] [place], [place] [phone] Tom Trujillo ANP Atherosclerosis of [place] coronary artery of [place] heart with stable angina pectoris ([facility]/HCC) (Primary Dx) from Last 3 Months Immunizations Immunization Administration Dates Next Due Hep B, adult 08/24/2024,,01/28/2024,01/22 Influenza injectable quadriv alent IIV4 with preservative 02/20/2018,04/29/2017,05/08/2016 Influenza injectable quadriv alent preservative free 06/15/2019 Influenza, High Dose Seasona l, Preservative Free 02/16/2025,04/21/2024 Moderna Covid-19 Vaccine 12+ 08/16/2020,07/20/19 21 Pneumococcal [...] Sign Reading Time Taken Comments Blood Pressure 120/64 02/16/2025 11:18 AM EDT Pulse 68 02/16/2025 11:18 AM EDT Temperature 36.4 C (97.6 F) 02/16/2025 11:18 AM EDT Respiratory Rate 11 02/16/2025 11:18 AM EDT Oxygen Saturation 97% 02/16/2025 11:18 AM EDT Inhaled Oxygen Concentration - - Weight 69 kg (152 lb 2 oz) 02/16/2025 11:18 AM E DT Height 149.9 cm (4' 11 ) 02/16/2025 11:18 AM EDT Body Mass Index 30.73 02/16/2025 11:18 AM EDT Plan of Treatment Upcoming Encounters Date Type Department Care Team (Late Contact Info) Description 03/22/2025 2:00 PM EST Office Visit [facility] [address] [place], [place] [phone] Tom Trujillo ANP [address] [place] [address] Health Maintenance Due Date Last Done Comments [...] Vaccine (3 - season) 2025 08/16/2020, 07/19/2020 Alcohol/Substance Use Screening 03/25/2025 03/25/2024 SDOH Screening 06/18/2025 06/18/2024 Depression Screening 10/07/2025 10/07/2024, 10/08/19 25 Mammogram 10/26/2025 10/26/2024, 04/12, 10/31/2021, Additional history exists Tobacco Screening 02/16/2026 02/16/2025 DTaP/Tdap/Td Vaccines (3 - Td or Tdap) 06/27/2028 06/27/2018, 05/08/2016 Lipid Panel 01/04/2030 01/04/2025, 09/16/2023 Pneumococcal Vaccine: 50+ Years Completed 11/28/2021, 11/17/2020, 05/08/2016 Hepatitis B Vaccines Completed 08/24/2024, 02/25/2024, 01/28/2024, Additional history exists Influenza Vaccine Completed 02/16/2025, , 06/15/2019, Additional history exists HIB Vaccines Aged Out [...] Procedure Name Priority Date/Time Associated Diagnosis Comments URIC ACID Routine 03/15/2025 1:34 PM EST Pain in finger of right hand CBC WITH AUTO DIFFERENTIAL Routine 03/15/2025 1:34 PM EST Elevated C-reactive protein (CRP) C-REACTIVE PROTEIN Routine 03/15/2025 1: 34 PM EST Elevated C-reactive protein (CRP) SED RATE BY MODIFIED WESTERGREN Routine 03/15/2025 1:34 PM EST Elevated C-reactive protein (CRP) URIC ACID Routine 02/05/2025 2:16 PM EDT Pain in finger of right hand C-REACTIVE PROTEIN Routine 02/05/2025 2: 16 PM EDT Pain in finger of right hand SED RATE BY MODIFIED WESTERGREN Routine 02/05/2025 2:16 PM EDT Pain in finger of right hand COMPREHENSIVE METABOLIC PANEL Routine 02/05/2025 2:16 PM EDT Pain in finger of right hand CBC WITH AUTO DIFFERENTIAL Routine 02/05/2025 2:14 PM EDT Pain in finger of right hand XR HAND 3+ VIEWS RIGHT STAT 5 1:51 PM EDT Pain in finger of right hand COVID-19 ID NOW (KIM) Routine 01/26/2025 11:38 [...] AUTO DIFFERENTIAL Routine 01/04/2025 1:20 PM EDT BI MAMMOGRAM SCREENING TOMOSYNTHESIS BILATERAL Routine 10/26/2024 1:20 PM EDT HM COLONOSCOPY Routine 10/10/2021 from Last 3 Months or Most Recently Relevant to Health Maintenance Results * (ABNORMAL) CBC auto differential (03/15/2025 1:34 PM EST) Only the most recent of3 resultswithin the time period is included. White Blood Count 3.7(L) 4.8 - 10.8 X10*3/uL [facility] Red Blood Count 4.09(L) 4.20 - 5.50 X10*6/uL [facility] Hemoglobin 12.1 12.0 - 16.0 g/dl [facility] Hematocrit 37.1 37.0 - 47.0 % [facility] Mean Corpuscular Volume 90.7 80.0 - 98.0 fL [facility] Mean Corpuscular Hemoglobin 29.6 27.0 - 33.0 pg [facility] Mean Corpuscular HGB Conc 32.6 31.0 - 35.0 g/dl [facility] Red Cell Distribution Width 15.7 11.0 - 16.0 % [facility] Platelet Count 125(L) 160 - 400 X10*3/uL [facility] Mean Platelet Volume 9.7 9.4 - 12.3 fL [facility] Neutrophils Percent Auto 71.5 45 - 73 % [facility] Imm Gran Pct Auto 0.3 0.0 - 0.4 % [facility] Lymphocytes Percent Auto 18.7(L) 20 - 40 % [facility] Monocytes Percent Auto 8.4 2 - 11 % [facility] Eosinophils Percent Auto 0.8 0 - 4 % [facility] Basophils Percent Auto 0.3 0 - 2 % [facility] NRBC Pct Auto 0.0 0.0 - 0.2 /100WBC [facility] Neutrophils Absolute Auto 2.6 2.0 - 8.3 x10*3/uL [facility] Imm Gran Abs Auto 0.01 0.00 - 0.03 X10*3/uL [facility] Lymphocytes Absolute Auto 0.7(L) 1.2 - 4.9 X10*3/uL [facility] Monocytes Absolute Auto 0.3 0.1 - 1.2 X10*3/uL [facility] Eosinophils Absolute Auto 0.0 0.0 - 0.4 X10*3/uL [facility] Basophils Absolute Auto 0.0 0.0 - 0.2 X10*3/uL [facility] NRBC Abs Auto 0.000 0.0 - 0.012 X10*3/uL [facility] Blood Venous blood specimen / Unknown 03/15/2025 1:34 PM EST 03/15/2025 1:34 PM EST [facility] LAB BLOOD ORDERABLES Final Resul t Performing Organization Address [facility] de Phone Number [facility] [address] [place] [phone] * (ABNORMAL) Sed Rate by Modified Nathanielren (03/15/2025 1:34 PM EST) Only the most recent of2 resultswithin the time period is included. Erythrocyte Sedimentation Rate 60(H) 0 - 20 MM/HR [facility] Comment:Patients with polycy themia and many hemoglobin abnormalitiesmay have depressed sed rates whereas patients with anemiamay have elevated sed rates. Blood Venous blood specimen / Unknown 03/15/2025 1:34 PM EST 03/15/2025 1:34 PM EST [facility] LAB BLOOD ORDERABLES Final Resul t Performing Organization Address [facility] Phone Number [facility] [address] [place] [phone] * (ABNORMAL) C-reactive Protein (03/15/2025 1:34 PM EST) Only the most recent of2 resultswithin the time period is included. C Reactive Protein 1.64(H) < or = 0.50 mg/dL [facility] Blood Venous blood specimen / Unknown 03/15/2025 1:34 PM EST 03/15/2025 1:34 PM EST [facility] LAB BLOOD ORDERABLES Final Resul t Performing Organization Address [facility] de Phone Number [facility] [address] [place] [phone] * (ABNORMAL) Uric acid (03/15/2025 1:34 PM EST) Only the most recent of2 resultswithin the time period is included. Uric Acid 6.8(H) 2.4 - 5.7 mg/dL [facility] Blood Venous blood specimen / Unknown 03/15/2025 1:34 PM EST 03/15/2025 1:34 PM EST Tom Trujillo [facility] LAB BLOOD ORDERABLES Final Resul t [facility] [address] [place] [phone] * (ABNORMAL) Comprehensive Metabolic Panel (02/05/2025 2:16 PM EDT) Only the most recent of2 resultswithin the time period is included. Sodium 139 135 - 145 mmol/L [facility] Potassium 3.6 3.3 - 5.1 mmol/L [facility] Chloride 99 96 - 108 mmol/L [facility] Carbon Dioxide 33(H) 22 - 29 mmol/L [facility] Anion Gap 11(L) 12 - 20 [facility] Urea Nitrogen (BUN) 15 9 - 16 mg/dL [facility] Creatinine, Serum 0.74 0.5 - 1.4 mg/dL [facility] Estimated Glomerular Filt Rate >60 [facility] Comment:Chronic Kidney Disea se: Estimated GFR < 60 mL/min/1.35z4Xoinot Kidney Disease: Estimated GFR < 15 mL/min/1.73m2 Glucose 87 60 - 115 mg/dL [facility] Calcium 10.0 8.4 - 10.2 mg/dL [facility] Bilirubin, Total 0.9 0.0 - 1.0 mg/dL [facility] Aspartate Amino Transferase 43(H) 5 - 31 U/L [facility] Alanine Aminotransferase 54(H) 0 - 31 U/L [facility] Total Protein 7.6 6.5 - 8.0 g/dL [facility] Albumin Level 3.6 3.5 - 5.0 g/dL [facility] Alkaline Phosphatase 65 39 - 117 U/L [facility] Blood Venous blood specimen / Unknown 02/05/2025 2:16 PM EDT 02/05/2025 3:57 PM EDT us Anabela Carlson MD LAB BLOOD ORDERABLES Final Re sult [facility] [address] [place] [phone] * XR Hand 3+ Views Right (02/05/2025 1:51 PM EDT) Anatomical Region Laterality Modality Upper Extremities, Hand Right Radiogra phic Imaging 02/05/2025 1:51 PM EDT Narrative 02/05/2025 2:05 PM EDT [facility] [address] [place] [address] XRay Report Signed Patient: Walt Rajan MR #: [id number] : 1955 Acct:[id number] Age/Sex: 69 / F ADM Date: 02/05/25 [facility]: Anabela Carlson MD Ordering Physician: Anabela Carlson MD Date of Service: 02/05/25 Procedure(s): XR hand RT min 3V Accession Number(s): [id number] cc: Anabela Carlson MD Reason for Exam: [...] Atul Mejía MD 02/05/2025 02:02 PM EDT Dictated By: tAul Mejía MD Signed By: <Electronically signed by Atul Mejía MD in OV> 02/05/25 1402 DD/ 1351 TD/TT: 02/05/25 1358 Border Patrol Officer: Procedure Note Donotuseinterpreter, Image - 02/05/2025 [facility] [address] [place] [address] XRay Report Signed Patient: Kenyon Rajan #: [id number] : 4Acct:[id number] Age/Sex: 69 / FADM Date: 02/05/25 Loc: HO.HHCX Attending Dr: Anabela Carlson MD Ordering Physician: Anabela Carlson MD Date of Service: 02/05/25 Procedure(s): XR hand RT min 3V Accession Number(s): [id number] cc: Anabela Carlson MD Reason for Exam: [...] Atul Mejía MD 02/05/2025 02:02 PM EDT Dictated By: Atul Mejía MD Signed By: <Electronically signed by Atul Mejía MD in OV> 02/05/25 1402 DD/ 1351 TD/TT: 02/05/25 1358 Border Patrol Officer: Anabela Carlson MD IMG XR PROCEDURES Final Resul t * Influenza A B2 ID NOW (Kim) (01/26/2025 11:38 AM EDT) IDNOW SERIAL# [id number] [facility] Influenza A Negative Negative [facility] Influenza B2 Negative Negative [facility] Influenza A B2 Note See Note [facility] Comment:The Ikm ID NOW In fluenza A B2 test [...] LAB MICROBIOLOGY - GENERAL ORDERABLES Final Result [facility] [address] [place] [phone] * COVID-19 ID NOW (KIM) (01/26/2025 11:38 AM EDT) IDNOW SERIAL# [id number] [facility] COVID-19 TEST Negative Negative [facility] COVID-19 NOTE See Note [facility] Comment: Results are for the identification of SARS-CoV2 RNA. TheSARS-CoV2 RNA is generally detectable in respiratory samplesduring the acute phase of infection. Positive results areindicative of the presence of SARS-CoV-2 RNA; clinicalcorrelation with patient history and other diagnosticinformation is necessary to determine patient infectionstatus. Positive results do not rule out bacterial infectionor co- infection with other viruses.Testing facilities within the [facility] and itsterritories are required to report all [...] use by authorized laboratories.Testing performed on the [employer] ID NOW utilizing NAAT. 01/26/2025 11:3 8 AM EDT 01/26/2025 11:41 AM EDT us Generic External Data Provider LAB MOLECULAR MOON GNOSTICS ORDERABLES Final Result Performing Organization Address City/State/[facility] Co de Phone Number [facility] [address] [place] [phone] * CT Cervical Spine w/o Contrast (01/26/2025 11:11 AM EDT) Anatomical Region Laterality Modality Spine, C-spine Computed Tomogra phy 01/26/2025 11:1 1 AM EDT Narrative 01/26/2025 11:51 AM EDT [address] [address] [address] Scan Report Signed Patient: Walt Rajan MR #: [id number] : 1955 Acct:[id number] Age/Sex: 69 / F ADM Date: 01/26/25 Loc: HO.ED Attending Dr: Ordering Physician: Molly Mata Date of Service: 01/26/25 Procedure(s): CT cervical spine wo IV con Accession Number(s): [id number] cc: Molly Mata; TOM TRUJILLO NP Report Number: [id number]: Total DLP = 277.00 mGy-cm Reason for [...] 01/26/25 1148 DD/ 1111 TD/TT: 01/26/25 1134 Border Patrol Officer: Procedure Note Donotuseinterpreter, Image - 01/26/[address] [address] [address] Scan Report Signed Patient: Kenyon Rajan #: [id number] : 4Acct:[id number] Age/Sex: 69 / FADM Date: 01/26/25 Loc: HO.ED Attending Dr: Ordering Physician: Molly Mata Date of Service: 01/26/25 Procedure(s): CT cervical spine wo IV con Accession Number(s): [id number] cc: Molly Mata; TOM TRUJILLO NP Report Number: [id number]: Total DLP = 277.00 mGy-cm Reason for [...] 01/26/25 1148 DD/ 1111 TD/TT: 01/26/25 1134 Border Patrol Officer: [facility] External Provider IMG CT PROCEDURES Edited Result - Final * CT Head w/o Contrast (01/26/2025 11:11 AM EDT) Anatomical Region Laterality Modality Head, Neck Computed Tomogra phy 01/26/2025 11:1 1 AM EDT Narrative 01/26/2025 11:44 AM EDT [address] [address] [address] Scan Report Signed Patient: Walt Rajan MR #: [id number] : 1955 Acct:[id number] Age/Sex: 69 / F ADM Date: 01/26/25 Loc: HO.ED Attending Dr: Ordering Physician: Molly Mata Date of Service: 01/26/25 Procedure(s): CT head/brain wo IV con Accession Number(s): [id number] cc: Molly Mata; TOM TRUJILLO NP Report Number: [id number]: Total DLP = 593.00 mGy-cm Reason for [...] Slim Gómez MD 01/26/2025 11:39 AM EDT RP Dictated By: Slim Torres MD Signed By: <Electronically signed by Slim Mendoza MD in OV> 01/26/25 1139 DD/ 1111 TD/TT: 01/26/25 1134 Border Patrol Officer: Procedure Note Donotuseinterpreter, Image - 01/26/[address] [place] [address] [address] Scan Report Signed Patient: Sid RajanR #: [id number] : 4Acct:[id number] Age/Sex: 69 / FADM Date: 01/26/25 Loc: HO.ED Attending Dr: Ordering Physician: Molly Mata Date of Service: 01/26/25 Procedure(s): CT head/brain wo IV con Accession Number(s): [id number] cc: Molly Mata; TOM TRUJILLO NP Report Number: [id number]: Total DLP = 593.00 mGy-cm Reason for [...] MD 01/26/2025 11:39 AM EDT Dictated By: Slmi Torres MD Signed By: <Electronically signed by Slim Mendoza MDin OV> 01/26/25 1139 DD/ 1111 TD/TT: 01/26/25 1134 Border Patrol Officer: [facility] External Provider IMG CT PROCEDURES Edited Result - Final * XR CERVICAL SPINE 3V (01/18/2025 3:10 PM EDT) Anatomical Region Laterality Modality Abdomen Radiographic Dawn ging 01/18/2025 3:10 PM EDT Narrative 01/18/2025 3:25 PM EDT [facility] [address] [place] [address] XRay Report Signed Patient: Walt Rajan MR #: [id number] : 1955 Acct:[id number] Age/Sex: 69 / F ADM Date: 01/18/25 Loc: HO.HHCX Attending Dr: Marcela Crook MD Ordering Physician: Marcela Crook MD Date of Service: 01/18/25 Procedure(s): XR cervical spine 3V Accession Number(s): [id number] cc: TOM TRUJILLO NP; Marcela Crook MD Reason for Exam: neck [...] 01/18/25 1522 DD/ 1510 TD/TT: 01/18/25 1513 Border Patrol Officer: Procedure Note Donotuseinterpreter, Image - 01/18/2025 [place] [address] XRay Report Signed Patient: Sid RajanPoly #: [id number] : 4Acct:[id number] Age/Sex: 69 / FADM Date: 01/18/25 Loc: HO.HHCX Attending Dr: Marcela Crook MD Ordering Physician: Marcela Crook MD Date of Service: 01/18/25 Procedure(s): XR cervical spine 3V Accession Number(s): [id number] cc: TOM TRUJILLO NP; Marcela Crook MD Reason for Exam: neck [...] 01/18/25 1522 DD/ 1510 TD/TT: 01/18/25 1513 Border Patrol Officer: us Marcela Crook MD IMG XR PROCEDURES Edited Result - Final * TSH with Reflex to Free T4 (01/04/2025 1:20 PM EDT) TSH reflex Free T4 1.86 0.32 - 4.0 uIU/mL [facility] 01/04/2025 1:20 PM EDT 01/04/2025 4:05 PM EDT us Generic External Data Provider LAB BLOOD ORDERAB LES Final Result [facility] [address] [place] [phone] * Hepatic Function Panel (01/04/2025 1:20 PM EDT) Bilirubin, Direct 0.3 0.0 - 0.5 mg/dL [facility] 01/04/2025 1:20 PM EDT 01/04/2025 4:05 PM EDT Generic External Data Provider LAB BLOOD ORDERAB LES Final Result Performing Organization Address [facility]/ZIP Co de Phone Number [facility] [address] [place] [phone] * (ABNORMAL) Lipid Panel, Standard (01/04/2025 1:20 PM EDT) Triglycerides 104 <150 mg/dL [facility] Comment:Desirable Triglyceri de: less than 150 mg/dLBorderline High Triglyceride 150-199 mg/dLHigh Triglyceride: 200-499 mg/dLVery High Triglyceride: greater than or equal to 5OO mg/dL Cholesterol 122 <200 mg/dL [facility] Comment:Desirable Cholestero l: less than 200 mg/dLBorderline High Cholesterol: 200-239 mg/dLHigh Cholesterol: greater than 239 mg/dL LDL Cholesterol Calculated 70 <100 mg/dL [facility] Comment:Desirable LDL: less than 100 mg/dLNear Optimal/Above Optimal LDL: 110- 129 mg/dLBorderline High LDL: 130-159 mg/dLHigh LDL: 160-189 mg/dLVery High LDL: greater than or equal to 190 mg/dL HDL Cholesterol 32(L) >40 mg/dL [facility] Comment:Desirable HDL: great er than 40 mg/dL Note: This HDL assay may give artificially low results in patients with liver disease. 01/04/2025 1:20 PM EDT 01/04/2025 4:05 PM EDT us Generic External Data Provider LAB BLOOD ORDERAB LES Final Result Performing Organization Address City/[facility]/ZIP Co de Phone Number [facility] [address] [place] [phone] * BI Mammogram Screening Tomosynthesis Bilateral (10/26/2024 1:20 PM EDT) Anatomical Region Laterality Modality Breast Bilateral Mammography 10/26/2024 1:20 PM EDT Narrative 11/01/2024 2:28 PM EDT [address] [place] [address] Mammography Report Signed Patient: Walt Rajan MR #: [id number] : [id number] Acct:[id number] Age/Sex: 69 / F ADM Date: 10/26/24 Loc: HO.MAMMO Attending Dr: Tom Trujillo NP Ordering Physician: TOM TRUJILLO NP Results: 1Negative Date of Service: 10/26/24 Follow Up: 1 Year From Orig inal Mammogram Procedure(s): MM tomosynthesis screening BI Accession Number(s): [id number] cc: TOM TRUJILLO NP EXAMINATION: MM SCREENING [...] 11/01/24 1425 DD/ 1320 TD/TT: 10/26/24 1338 Border Patrol Officer: Procedure Note Donotuseinterpreter, Image - 11/01/[address] [place] [address] Mammography Report Signed Patient: Sid RajanR #: [id number] : 4Acct:[id number] Age/Sex: 69 / FADM Date: 10/26/24 Loc: HO.MAMMO Attending Dr: Tom Trujillo NP Ordering Physician: TOM TRUJILLO NPResults: 1Negative Date of Service: 10/26/24Follow Up: 1 Year From Orig inal Mammogram Procedure(s): MM tomosynthesis screening BI Accession Number(s): [id number] cc: TOM TRUJILLO NP EXAMINATION: MM SCREENING [...] 11/01/24 1425 DD/ 1320 TD/TT: 10/26/24 1338 [employer] Officer: Tom Trujillo ANP IMG BI PROCEDURES Edited Result - Final * Hm Colonoscopy (10/10/2021) Colonoscopy Normal Normal Historical Provider MD HEALTH MAINTENANCE Final Result from Last 3 Months or Most Recently Relevant to Health Maintenance Insurance [facility] STANDARD [place] [id number] Care Teams Salt Grinder Relationship Specialty Start Date End Date Tom Trujillo ANP [address] [place] [address] PCP - General Family Medicine 09/29/19 Everett Rojas MD [address] [place] [address] 3rd Floor [place], [place] Cardiology 04/21/24
--- OUTSIDE RECORDS SUMMARY | 2025-03-15 15:40 | XMS_ITS | Encounter Summary ---
Author Organization [facility] Address [address] [place] [address] Care Team Providers Care News Reel Cameraman Name Role Phone Darius Tamayo MD Primary Care Provider [phone] Encounter Details Date Type Department Care Team (Late st Contact Info) Description 03/02/2025 Results Follow-Up [facility] [address] [place] [phone] Sabrina Dahl RN Social History Tobacco Use [...] Info) Description 03/18/2025 2:00 PM EST Follow-Up [facility] [address] [place] [address] Lauren Hancock MD [address] [place] [address] 04/02/2025 10:00 AM EST Office Visit [facility] 4th floor Cardiology Medicine [address] [place] [phone] Supervisor Cigarette Making Department: James Reynoso MD [address] [place] [phone] documented as of this encounter Visit Diagnoses Not on filedocumented in this encounter Care Teams News Reel Cameraman Relationship Specialty Start Date End Date Darius Tamayo MD [address] [place] [phone] PCP - General Gastroenterology 12/22/24 documented as of this encounter
--- OUTSIDE RECORDS SUMMARY | 2025-03-15 15:40 | XMS_ITS | Encounter Summary ---
Author Organization [facility] Address [address] [place] [address] Care Team Providers Care Early Education Teacher Name Role Phone Darius Tamayo MD Primary Care Provider [phone] Encounter Details Date Type Department Care Team (Late st Contact Info) Description 03/08/2025 Orders Only [facility] Transplant Department [address] [place] [address] Provider, Cem, [address] [place] [phone] Social History Tobacco Use Types Packs/Day Years [...] Info) Description 03/18/2025 2:00 PM EST Follow-Up [facility] [address] [place] [address] Lauren Hancock MD [address] [place] [address] 04/02/2025 10:00 AM EST Office Visit [facility] 4th floor Cardiology Medicine [address] [place] [address] Mate Fourth: James Reynoso MD [address] [place] [address] documented as of this encounter Procedures * Due to [place] [employer] law, this organization might not be sharing negative HIV tests. Procedure Name Priority Date/Time Associated Diagnosis Comments LAB - SCANNED Routine 03/01/2025 11:14 AM EDT documented in this encounter Results * Due to [place] [employer] law, this organization might not be sharing negative HIV tests. * LAB - SCANNED (03/01/2025 11:14 AM EDT) us Unknown Provider LAB HISTORICAL RESULTS Final Result documented in this encounter Visit Diagnoses Not on filedocumented in this encounter Care Teams Early Education Teacher Relationship Specialty Start Date End Date Darius Tamayo MD [address] [place] [phone] PCP - General Gastroenterology 12/22/24 documented as of this encounter
--- OUTSIDE RECORDS SUMMARY | 2025-03-15 15:41 | XMS_ITS | Clinical Summary ---
Author Organization [facility] Address [address] [place] [address] Care Team Providers Care Freight Hustler Name Role Phone Darius Tamayo MD Primary Care Provider [phone] Allergies Active Allergy Reactions Criticality Noted Date [...] 30 tablet 11 5 12/26/19 26 Active Active Problems Problem Noted Date Diagnosed Date Awaiting liver transplant 03/02/2025 Hepatocellular carcinoma 09/16/2024 Overview (02/12/2025): As seen on MRI 09/04/[address] Tamayo. Pt referred to IR for tx options 09/14/24 by GI. MR/MR abdomen wo/w con IMPRESSION: 1. Hepatic cirrhosis. Masses are identified in segments VIII and I within the liver as described above, compatible with hepatocellular carcinoma Cirrhosis of liver without ascites 04/16/2023 Overview (02/12/2025): compensated. thought to be d/t CARTWRIGHT vs. HCV. Follows w/ [facility] and had abd MRI to eval liver lesion 07/2022. 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 Overview (02/12/2025): EGDs via [facility] Paroxysmal atrial fibrillation 02/07/2016 Benign essential hypertension 11/25/2015 Chronic hepatitis C 11/25/2015 Encounters Date Type Department Care Team Description 03/08/2025 Orders Only [facility] Transplant Department [address] [place] [address] Provider, MD Cem 03/02/2025 Orders Only [facility] Transplant Department [address] [place] [address] Rebecca Workman, EMELYN Hepatocellular carcinoma (Primary Dx); Awaiting liver transplant 03/02/2025 Results Follow-Up [facility] Transplant Services [address] [place] [address] Sabrina Dahl RN 03/02/2025 Results Follow-Up [facility] [address] [place] [address] Sabrina Dahl, RN 03/02/2025 Documentation [facility] Transplant Department [address] [place] [address] Nanette Bowen, MONAE ABO Dual Validation 03/02/2025 Documentation [facility] Transplant Department [address] [place] [address] Sabrina Dahl RN ABO Dual Validation 03/02/2025 External Result Entry [facility] Transplant Department [address] [place] [address] Sabrina Dahl, MONAE 03/02/2025 Orders Only [facility] Transplant Department [address] [place] [address] Cem Kaplan MD 03/02/2025 Abstract [facility] Transplant Department [address] [place] [address] Lauren Hancock MD 03/01/2025 Telephone [facility] Transplant Department [address] [place] [address] Sabrina Dahl, RN 02/26/2025 Orders Only [facility] Transplant Department [address] [place] [address] Sabrina Dahl, RN Encounter for pre-transplant evaluation for liver transplant (Primary Dx) 02/15/2025 Telephone [facility] Transplant Department [address] [place] [address] Sabrina Dahl, RN 01/28/2025 Orders Only [facility] [address] [place] [address] Monica Suresh MD 01/22/2025 Refill [facility] [address] [place] [address] Lauren Hancock MD 01/20/2025 Refill [facility] [address] [place] [address] Lauren Hancock MD 01/18/2025 Telephone [facility] Transplant Department [address] [place] [address] Sabrina Dahl RN Care Coordination 01/15/2025 3:15 PM EDT Office Visit [facility] [address] [place] [address] Nikko Pagan MD Metabolic dysfunction-associat ed steatohepatitis (MASH) (Primary Dx); Chronic hepatitis C with cirrhosis (HCC); Portal hypertension (HCC); HCC (hepatocellular carcinoma) (HCC); Atrial fib/flutter, transient (HCC) 01/15/2025 2:30 PM EDT Office Visit [facility] [address] [place] [address] Shaila Posey MD Encounter for pre-transplant evaluation for chronic liver disease (Primary Dx); Metabolic dysfunction-associat ed steatohepatitis (MASH); Hepatocellular carcinoma (HCC); Chronic hepatitis C without hepatic coma (HCC); Screening examination for infectious disease; Positive CMV IgG serology; EBV seropositivity; Immune to hepatitis B; Immune to hepatitis A 01/15/2025 1:45 PM EDT Nutrition [facility] [address] [place] [address] Encounter for pre-transplant evaluation for liver transplant (Primary Dx) 01/15/2025 1:00 PM EDT Office Visit [facility] [address] [place] [address] Mihai Blank MD Encounter for pre-transplant evaluation for chronic liver disease (Primary Dx) 01/15/2025 12:15 PM EDT Social Work [facility] [address] [place] [address] Sandra Victor, SVP D[employer] AD SALES 01/15/2025 11:45 AM EDT Office Visit [facility] [address] [place] [address] Da Robb, MONAE Encounter for pre-transplant evaluation for liver transplant 01/15/2025 10:30 AM EDT - 01/15/2025 11:59 PM EDT Hospital Encounter [facility] ACC Building Cardiac Ultrasound [address] [place] [address] Encounter for pre-transplant evaluation for liver transplant Discharge Disposition: Home or Self Care () 01/15/2025 Orders Only [facility] Transplant Department [address] [place] [address] Sabrina Dahl RN Encounter for pre-transplant evaluation for liver transplant (Primary Dx) 01/07/2025 Orders Only [facility] Transplant Department [address] [place] [address] Nanette Bowen, MONAE Encounter for pre-transplant evaluation for liver transplant (Primary Dx); Pre-procedural cardiovascular examination; Mild CAD; Coronary artery calcification seen on CT scan 01/07/2025 Results Follow-Up [facility] [address] [place] [address] Service Tester: Lauren Hernandez MD 01/06/2025 12:18 PM EDT - 01/06/2025 11:59 PM EDT Hospital Encounter [address] [address] Lauren Hancock MD Encounter for pre-transplant evaluation for liver transplant; Metabolic dysfunction-associat ed steatohepatitis (MASH) Discharge Disposition: Home or Self Care () 12/25/2024 Results Follow-Up [facility] [address] [place] [address] Sabrina Dahl RN 12/22/2024 1:00 PM EDT Office Visit [facility] [address] [place] [address] Lauren Hancock MD Hepatocellular carcinoma (HCC) (Primary Dx); Metabolic dysfunction-associat ed steatohepatitis (MASH); Chronic hepatitis C without hepatic coma (HCC); 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) 12/22/2024 12:00 PM EDT Evaluation [facility] [address] [place] [address] Sabrina Dahl, MONAE Encounter for pre-transplant evaluation for liver transplant (Primary Dx) 12/22/2024 Education [facility] Transplant Department [address] [place] [address] Sabrina Dahl RN 12/22/2024 Orders Only [facility] Transplant Department [address] [place] [address] Sabrina Dahl RN Encounter for pre-transplant evaluation for liver transplant (Primary Dx); Metabolic dysfunction-associat ed steatohepatitis (MASH) 12/22/2024 Orders Only [facility] Transplant Department [address] [place] [address] Sabrina Dahl RN Encounter for pre-transplant evaluation for liver transplant (Primary Dx) from Last 3 Months Social History Tobacco [...] Info) Description 03/18/2025 2:00 PM EST Follow-Up [facility] [address] [place] [address] Lauren Hancock MD [address] [place] [address] 04/02/2025 10:00 AM EST Office Visit [facility] Building 4th floor Cardiology Medicine [address] [place] [address] Service Tester: James Reynoso MD [address] [place], [place] [phone] Health Maintenance Due Date Last Done Comments Cologuard 1955 Colon Cancer Screening 1955 Colonoscopy 1955 FOBT / Fit Test 1955 Sigmoidoscopy 1955 Medicare AWV 1954 RSV Vaccine (60+ years old a nd patients) (1 - Risk 60-74 years 1-dose series) 2013 Mammogram 11/23/2019 11/22/2017 COVID-19 Vaccine (3 - Modern a risk series) 09/13/2020 08/16/2020, 07/19/2020 Zoster Vaccines (2 of 2) 01/12/2021 11/17/2020, 04/13 Depression Screening and Follow-Up 05/13/2024 Health Care Proxy Review 05/13/2024 Social Drivers of Health Elizabeth ual Screening 05/13/2024 CT Lung Cancer Screening (Baseline) 11/18/2025 11/18/2024 Basic Metabolic Panel 02/05/2026 02/05/2025 , 01/04/2025, 12/22/2024, Additional history exists DTaP,Tdap,and Td Vaccines (3 - Td or Tdap) 06/27/2028 06/27/2018, 05/08/2016 Pneumococcal Vaccine: 50+ Years Completed 11/28/2021, 11/17/2020, 05/08/2016 Osteoporosis Screening Completed 06/09/2024, 2024 Hepatitis B Vaccines Completed 08/24/2024, 02/25/2024, 01/28/2024, Additional history exists Alcohol/Substance Use Screening Completed Influenza Vaccine Completed 02/16/2025, , 06/15/2019, Additional history exists Procedures * Due to [place] state law, this organization might not be sharing negative HIV tests. Procedure Name Priority Date/Time Associated Diagnosis Comments TYPE AND SCREEN - TRANSPLANT MANUAL ABSTRACTION Routine 03/01/2025 1:58 PM EDT LAB - SCANNED Routine 03/01/2025 11:14 AM EDT LIVER PRE EXTERNAL PANEL Routine 03/01/2025 10:35 AM EDT TYPE AND SCREEN - TRANSPLANT MANUAL ABSTRACTION Routine 03/01/2025 ECG 12-LEAD Routine 01/15/2025 1:32 PM EDT [...] Encounter for pre-transplant evaluation for liver transplant QNCIH-4-QOSIQQJNTVZ (AAT) PHENOTYPE Routine 12/22/2024 2:14 PM EDT Encounter for pre-transplant evaluation for liver transplant HEPATOCELLULAR CARCINOMA PANEL -[id number] Routine 12/22/2024 2:14 PM EDT Encounter for pre-transplant evaluation for liver transplant STEPHON SCREEN, IFA, W/REFLEX TO TITER & PATTERN Routine 12/22/2024 2:14 PM EDT Encounter for pre-transplant evaluation for liver transplant BILIRUBIN, DIRECT Routine 12/22/2024 2:1 4 PM EDT Encounter for pre-transplant evaluation for liver transplant CYSTATIN C WITH GLOMERULAR FILTRATION RATE, ESTIMATED (EGFR)-[id number] Routine 12/22/2024 2:14 PM EDT Encounter for [...] for pre-transplant evaluation for liver transplant PHOSPHATIDYLETHANOL-AR [id number] Routine 12/22/2024 2:14 PM EDT Encounter for [...] for liver transplant QUANTIFERON-TB GOLD PLUS, 1 [id number] Routine 12/22/2024 2:14 PM EDT Encounter for pre-transplant evaluation for liver transplant HIV-1/2 ANTIGEN/ANTIBODIES 4TH GENERATION W/REFLEX Routine 12/22/2024 2:14 PM EDT Encounter for pre-transplant evaluation for liver transplant RPR (DIAGNOSIS) W/REFLEX TO TITER & TPPA [id number] Routine 12/22/2024 2:14 PM EDT Encounter for [...] for pre-transplant evaluation for liver transplant ZINC, PLASMA/RSJFA-[id number] Routine 12/22/2024 2:14 PM EDT Encounter for pre-transplant evaluation for liver transplant from Last 3 Months Results * Due to [place] state law, this organization might not be sharing negative HIV tests. * TYPE AND SCREEN - TRANSPLANT MANUAL ABSTRACTION (03/01/2025 1:58 PM EDT) Only the most recent of2 resultswithin the time period is included. us Unknown Provider MD LAB HISTORICAL RESULTS Final Result * LAB - SCANNED (03/01/2025 11:14 AM EDT) us Unknown Provider MD LAB HISTORICAL RESULTS Final Result * LIVER PRE EXTERNAL PANEL (03/01/2025 10:35 AM EDT) Sodium 144 mmol/L [facility] Potassium 3.4 [facility] Chloride 103 [facility] Carbon Dioxide 31 [facility] Glucose 86 [facility] BUN 22 mg/dL [facility] Creatinine 0.77 mg/dL [facility] Calcium 9.5 mg/dL [facility] Total Protein 6.9 g/dL [facility] Albumin 3.8 g/dL [facility] Bilirubin, Total 1.1 mg/dL [facility] Alkaline Phosphatase 40 U/L [facility] AST 37 U/L [facility] ALT 55 U/L [facility] WBC 4.1 10*3/uL [facility] Hgb 12.6 [facility] Hematocrit 40.0 % [facility] Platelets 105 10*3/uL [facility] INR 1.50 [facility] 03/01/2025 10:3 5 AM EDT Lauren Hancock MD LAB BLOOD ORDERABLES Fin al Result Performing Organization Address [facility] Co de Phone Number [facility] [address] [place] [address] * ECG 12 lead (01/15/2025 1:32 PM EDT) Ventricular Rate EKG 55 BPM MUSE EKG Atrial Rate 55 BPM MUSE EKG MD Interval 152 ms MUSE EKG QRS Interval 92 ms MUSE EKG QT Interval 432 ms MUSE EKG QTC Interval 413 ms MUSE EKG P Montara 51 degrees MUSE EKG R Montara 21 degrees MUSE EKG T Wave Montara 1 degrees MUSE EKG 01/15/2025 1:32 PM EDT 01/19/2025 10:59 PM EDT Impressions MUSE EKG - 01/19/2025 10:59 PM EDT POOR DATA QUALITY, INTERPRETATION MAY BE ADVERSELY AFFECTED SINUS BRADYCARDIA with pvcs and fusion complexes OTHERWISE NORMAL ECG NO PREVIOUS ECGS AVAILABLE Confirmed by Oswaldo Landa ([id number]) on 01/19/2025 10:59:21 PM Narrative Procedure Note Oswaldo Landa MD - 01/19/2025 IMPRESSION: POOR DATA QUALITY, INTERPRETATION MAY BE ADVERSELY AFFECTED SINUS BRADYCARDIA with pvcs and fusion complexes OTHERWISE NORMAL ECG NO PREVIOUS ECGS AVAILABLE Confirmed by sOwaldo Landa ([id number]) on 01/19/2025 10:59:21 PM us Lauren Hancock MD ECG ORDERABLES Final Re sult Performing Organization Address City/[facility]/ZIP Co de Phone Number MUSE EKG * TRANSTHORACIC ECHO (TTE) COMPLETE [...] Doppler. Myocardial deformation imaging was performed using [employer]. During the study the apical, parasternal, subcostal [...] cancer. For comments and reference, please see [https://doi.org/10.1148/radiol.3167927012]. For information about nodule measurements and reporting, please see [https://pubs.rsna.org/doi/10.1148/radiol.2013268197]. I, Mike Riley, have reviewed the examination and concur with the findings as reported or so edited. Trainee: Kojo Nevarez If this radiology report contains a blank impression section, it is an incomplete radiology report. Please contact the interpreting radiologist or applicable radiology division as soon as possible to obtain the completed interpretation. Workstation ID: [id number] Narrative 01/07/2025 5:[address] CARDIAC [...] will not be ordered. Resulting Agency Comment [id number] Procedure Note Mike Riley MD - 01/07/2025 CT CARDIAC CORONARY AND CALCIUM SCORING, CT LIMITED FOLLOW UP [facility] Indication: CAD screening, intermediate CAD risk, not treadmill zaeoobyrvP39.818 - I10 - Encounter for other preprocedural [...] lung cancer. For comments and reference, please see[https://doi.org/10.1148/radiol.2775215567]. For information about nodulemeasurements and reporting, please see[https://pubs.rsna.org/doi/10.1148/radiol.8221245482]. I, Mike Riley, have reviewed the examination and concur with thefindings as reported or so edited. Trainee: Kojo Nevarez If this radiology report contains a blank impression section, it is anincomplete radiology report. Please contact the interpreting radiologistor applicable radiology division as soon as possible to obtain thecompleted interpretation. Workstation ID: [id number] us Lauren Hancock MD IM CT PROCEDURES Final Result * CT Limited [...] cancer. For comments and reference, please see [https://doi.org/10.1148/radiol.6880013378]. For information about nodule measurements and reporting, please see [https://pubs.rsna.org/doi/10.1148/radiol.3090002078]. I, Mike Riley, have reviewed the examination and concur with the findings as reported or so edited. Trainee: Kojo Nevarez If this radiology report contains a blank impression section, it is an incomplete radiology report. Please contact the interpreting radiologist or applicable radiology division as soon as possible to obtain the completed interpretation. Workstation ID: [id number] Narrative 01/07/2025 5:[address] CARDIAC [...] will not be ordered. Resulting Agency Comment [id number] Procedure Note Mike Riley MD - 01/07/2025 CT CARDIAC CORONARY AND CALCIUM SCORING, CT LIMITED FOLLOW UP [facility] Indication: CAD screening, intermediate CAD risk, not treadmill nnwzmmcaiO39.818 - I10 - Encounter for other preprocedural [...] lung cancer. For comments and reference, please see[https://doi.org/10.1148/radiol.2965603104]. For information about nodulemeasurements and reporting, please see[https://pubs.rsna.org/doi/10.1148/radiol.2872504348]. I, Mike Riley, have reviewed the examination and concur with thefindings as reported or so edited. Trainee: Kojo Nevarez If this radiology report contains a blank impression section, it is anincomplete radiology report. Please contact the interpreting radiologistor applicable radiology division as soon as possible to obtain thecompleted interpretation. Workstation ID: [id number] us Lauren Hancock MD IMG CT PROCEDURES Final Result * Comprehensive Drug Panel, Urine (12/22/2024 2:34 PM EDT) Pathologist [facility] Comprehensive Drug Screen Urine DRUGS DETECTED 12/22/2024 9:16 PM EDT [employer] [facility] Comment: CAFFEINE METOPROLOL Urine Voided urine specimen / Unknown Non-Blood Collection / Unknown 12/22/2024 2:34 PM EDT 12/22/2024 2:42 PM EDT [employer] [facility] - 12/22/2024 9:16 PM EDT [facility] Received Date:[id number] us Lauren Hancock MD LAB URINE ORDERABLES Fin al Result [facility] [address], [place] [address], [facility] [address], [place] [address], * (ABNORMAL) Cystatin C with Glomerular Filtration Rate, Estimated (eGFR) (12/22/2024 2:14 PM EDT) [facility] Cystatin C 1.58(H) 0.52 - 1.10 mg/L 12/24/2024 12:17 PM EDT [facility] eGFR Non- 38(L) >=60 NA 12/24/2024 12:17 PM EDT [facility] Comment: REFERENCE RANGE:>=60 mL/min/1.73mE2 Blood Structure of peripheral vein / Unknown Venipuncture / Unknown 12/22/2024 2:14 PM EDT 12/22/2024 2:53 PM EDT Narrative [facility] - 12/24/2024 12:17 PM EDT [facility] Received Date: Lauren Hancock MD LAB BLOOD ORDERABLES Fin al Result [facility]) [address] [place] [address], [place] * (ABNORMAL) Hepatocellular Carcinoma Panel (Includes AFP, AFP-L3 & DCP) (12/22/2024 2:14 PM EDT) AFP 31.3(H) 1.6 - 4.5 ng/mL 12/29/2024 6:23 PM EDT [facility] [facility] AFP-L3 3.9 0.5 - 9.9 % 12/29/2024 6:23 PM EDT [facility] [facility] Comment: The micro-total analysis system (uTASWInterEx) employs microchip capillary electrophoresis to quantitatively measure AFP and AFP-L3% by immunochemical techniques. The assay principle involves DNA-coupled antibodies and dye labeled antibodies, which react with proteins in liquid phase within the microchannels. Both analytes are quantified using laser-induced fluorescence. Instrument and associated reagents are supplied by [employer] [place], [place], [place]. Patients with elevated AFP-L3% values (>=10%) [...] can potentially cause an anomalous result. The [employer] System has been formulated to minimize the [...] etiologies such as alcoholic liver disease, hemachromatosis, Hcandler's disease, autoimmune hepatitis and steatohepatisis have not been studied with the assay. 9. The assay is linear for AFP concentration of 0.3 to 1000 ng/mL. 10. Values obtained with different assay methods or kits cannot be used interchangeably. DCP (Ohq-Dymyd-Rufgpjn- Prothrombin) 0.2 <7.5 ng/mL 12/29/2024 6:23 PM EDT [facility] Comment: The ZIRX DCP Immunological Test System is a clinical device used to quantitatively measure, by immunochemical technique, fnz-ukaft-hqbobxp-prothrombin (DCP) in serum. The assay uses DNA-coupled antibodies and dye labeled antibodies, which react with proteins in liquid phase within the microchannels. Both analytes are quantified using laser-induced fluorescence. Instrument and associated reagents are supplied by [employer] [place], [place], [place]. DCP levels increase in patients with [...] interference potentially causing an anomalous result. The ZIRX DCP has been formulated to minimize the [...] PM EDT 12/22/2024 2:52 PM EDT [facility] - 12/29/2024 6:23 PM EDT [facility] Received Date: Lauren Hancock MD LAB BLOOD ORDERABLES Fin al Result [facility] [address], [place] [address], [place] [phone] [employer] [address], [place] [phone] * Phosphatidylethanol (PEth) (12/22/2024 2:14 PM EDT) PEth 16:0/18:1 (POPEth) <10 ng/mL 12/24/2024 2:50 PM EDT [facility] Comment: PEth 16:0/18:1 (POPEth) Less than 10 ng/mL............Not detected Less than 20 ng/mL............Abstinence or light alcohol consumption 20 - 200 ng/mL................Moderate alcohol consumption Greater than 200 ng/mL........Heavy alcohol consumption or chronic alcohol use (Reference: W. Elizabeth Garduno 2018 J. Forensic Sci) PEth 16:0/18:2 (PLPEth) <10 ng/mL 12/24/2024 2:50 PM EDT [facility] Comment:Reference ranges are not well established. EER Peth See Note 12/24/2024 2:50 PM EDT [facility] Comment: Authorized individuals can access the [facility] Enhanced Report with an [employer] Connect account using the following link. Your local lab can assist you in obtaining the patient report if you don't have a Connect account. [email or web address] PEth Interpretation See Comment 12/11 2:50 PM EDT [facility] Comment: Phosphatidylethanol (PEth) is a group [...] developed and its performance characteristics determined by [facility]. It has not been cleared or approved by the U.S. Food and Drug Administration. This test was performed in a CLIA-certified laboratory and is intended for clinical purposes. Performed By: [facility] [address] [place] [id number] Store Clerk: Dennis Landry MD, PhD CLIA Number: [id number] Blood Structure of peripheral vein / Unknown Venipuncture / Unknown 12/22/2024 2:14 PM EDT 12/22/2024 2:51 PM EDT Lauren Hancock MD LAB BLOOD ORDERABLES Fin al Result [facility] [address] [place] [address], * Eadac-0-Izzfynptupn (AAT) Phenotype (12/22/2024 2:14 PM EDT) Alpha 1 Antitrypsin Phenotype SEE NOTE 12/28/2024 6:17 PM EDT [facility]PORTSARBJIT GRA[facility]DOS[facility] Comment: THIS PATIENT'S PQHPP-1-OXZSJFLWOEC PHENOTYPE IS PI*MM. 90% of normal individuals have the MM phenotype, with normal quantitative AAT levels. Many phenotypic patterns have been described, including deficiency states with F, S, Z, or other alleles. As a general estimation, compared to M allele of 100% of normal Q-2-Vlenisuyqjl protein, the S allele produces approximately 60% and the Z allele 20%. For example, an MS phenotype would have about 80% of normal F-1-Hnbxydgfjma protein level, a 50% contribution from the M allele and 30% from the S allele. A ZZ phenotype would have about 20% of normal levels, a 10% contribution from each Z gene. The F allele has normal P-7-Cflcwywyplo levels, but the kinetics of elastase inhibition [...] EDT 12/22/2024 2:51 PM EDT Narrative [facility] - 12/28/2024 6:17 PM EDT [facility] Received Date: us Lauren Hancock MD LAB BLOOD ORDERABLES Fin al Result BALTA MENEZES [address] [facility] 3rd Floor, [address] [place] [address], [place] [phone] Versus/[facility] [address] [place] [address], [place] [phone] * MMR Panel, IgG (12/22/2024 2:14 PM EDT) [facility] Measles Antibody (IgG), Immune Status >300.00 AU/mL 12/23/2024 5:57 AM EDT [facility] Comment: AU/mL Interpretation ----- <13.50 Not consistent with immunity 13.50-16.49 Equivocal >16.49 Consistent with immunity The presence of measles IgG suggests immunization or past or current infection with measles virus. For additional information, please refer to http://education.SpinUtopia/faq/CBE039 (This link is being provided for informational/ educational purposes only.) Mumps Antibody (IgG), Immune Status >300.00 AU/mL 12/23/2024 5:57 AM EDT [facility] Comment: AU/mL Interpretation ------- <9.00 Not consistent with immunity 9.00-10.99 Equivocal >10.99 Consistent with immunity The presence of mumps IgG antibody suggests immunization or past or current infection with mumps virus. Rubella Antibody (IgG), Immune Status 5.07 Index 12/23/2024 5:57 AM EDT [facility] Comment: Index Interpretation ----- <0.90 Not consistent with immunity 0.90-0.99 Equivocal > or = 1.00 Consistent with immunity The presence of rubella IgG antibody suggests immunization or past or current infection with rubella virus. Blood Structure of peripheral vein / Unknown Venipuncture / Unknown 12/22/2024 2:14 PM EDT 12/22/2024 2:52 PM EDT Srikanth MENEZES - 12/23/2024 5:57 AM EDT [facility] Received Date: Lauren Hancock MD LAB BLOOD ORDERABLES Fin al Result [facility] [address] [facility] 3rd Floor, [place] [address], Versus [facility] [address], [place] [address], * (ABNORMAL) Herpes Simplex Virus 1&2, IgG (12/22/2024 2:14 PM EDT) [facility] HSV 1 IgG Type Specific Ab 46.90(H) index 12/23/2024 3:42 AM EDT Versus [facility] HSV 2 IgG Type Specific Ab <0.90 index 12/23/2024 3:42 AM EDT [facility] Comment: Index Interpretation ----- <0.90 Negative 0.90-1.09 [...] screening. For additional information, please refer to http://education.Studio.Fits.me/faq/RNG353 (This link is being provided for informational/ educational purposes only.) Blood Structure of peripheral vein / Unknown Venipuncture / Unknown 12/22/2024 2:14 PM EDT 12/22/2024 2:50 PM EDT Srikanth MENEZES - 12/23/2024 3:42 AM EDT [facility] Received Date: us Lauren Hancock MD LAB BLOOD ORDERABLES Fin al Result BALTA MENEZES [address] [facility] 3rd Floor, [place] [address], [place] [phone] Versus [facility] 200 [facility] 3rd Floor, [place] [address], [place] [phone] * (ABNORMAL) Protein Electrophoresis w/Reflex to Immunofixation, Serum (12/22/2024 2:14 PM EDT) Protein, Total 7.6 6.1 - 8.1 g/dL 12/23/2024 10:54 PM EDT Versus [facility] Albumin 3.8 3.8 - 4.8 g/dL 12/23/2024 10:54 PM EDT Versus [facility] Alpha 1 Globulin 0.4(H) 0.2 - 0.3 g/dL 12/23/2024 10:54 PM EDT Versus [facility] Alpha 2 Globulin 0.9 0.5 - 0.9 g/dL 12/23/2024 10:54 PM EDT Versus [facility] Beta 1 Globulin 0.5 0.4 - 0.6 g/dL 12/23/2024 10:54 PM EDT Versus [facility] Beta 2 Globulin 0.5 0.2 - 0.5 g/dL 12/23/2024 10:54 PM EDT Versus [facility] Gamma Globulin 1.5 0.8 - 1.7 g/dL 12/23/2024 10:54 PM EDT Versus [facility] Interpretation See Comments 12/23/2024 10:54 PM EDT Versus [facility] Comment: Alpha-1 globulin increase noted. Blood Structure of peripheral vein / Unknown Venipuncture / Unknown 12/22/2024 2:14 PM EDT 12/22/2024 2:50 PM EDT Narrative BALTA MENEZES - 12/23/2024 10:54 PM EDT [facility] Received Date: us Lauren Hancock MD LAB BLOOD ORDERABLES Fin al Result [place] [address] [facility] [address] [facility], [place] [address], [place] [phone] Versus [facility] 200 [facility] [address] [facility], [place] [address], [place] [phone] * RPR (Diagnosis) w/Reflex to Titer & TPPA Confirm (12/22/2024 2:14 PM EDT) RPR W/Refl Titer NON-REACT DEREJE NON-REACT DEREJE 12/23/2024 11:34 AM EDT Versus [facility] Blood Structure of peripheral vein / Unknown Venipuncture / Unknown 12/22/2024 2:14 PM EDT 12/22/2024 2:51 PM EDT Narrative [facility] - 12/23/2024 11:34 AM EDT [facility] Received Date:[id number] us Lauren Hancock MD LAB BLOOD ORDERABLES Fin al Result [facility] [address] [facility] [address] [facility], [place] [address], [place] [phone] Versus [facility] [address], [place] [address], [place] [phone] * (ABNORMAL) Iron Saturation (12/22/2024 2:14 PM EDT) Iron Saturation 19(L) 20 - 50 % 3:36 PM EDT [facility] Iron 59 30 - 160 ug/dL 12/22/2024 3:36 PM EDT [facility] Transferrin 252 200 - 360 mg/dL 12/22/2024 3:36 PM EDT [facility] Total Iron Binding Capacity 315 255 - 450 ug/dL 12/22/2024 3:36 PM EDT [facility] Blood Structure of peripheral vein / Unknown Venipuncture / Unknown 12/22/2024 2:14 PM EDT 12/22/2024 2:51 PM EDT us Lauren Hancock MD LAB BLOOD ORDERABLES Fin al Result Performing Organization Address City/[facility]/ZIP Co de Phone Number [email or web address] CL[facility]ICAL PATHOLOG[facility] LABORATORY [address] [place] [address], * TSH Reflex Free T4 (12/22/2024 2:14 PM EDT) TSH 3.360 0.280 - 3.890 uIU/mL 12/22/2024 3:36 PM EDT [facility] Comment: Females: 1st trimester 0.150-4.000 IU/mL 2nd trimester 0.310-4.170 IU/mL 3rd trimester 0.380-4.150 IU/mL Blood Structure of peripheral vein / Unknown Venipuncture / Unknown 12/22/2024 2:14 PM EDT 12/22/2024 2:51 PM EDT us Lauren Hancock MD LAB BLOOD ORDERABLES Fin al Result Performing Organization Address City/[facility]/ZIP Co de Phone Number [facility] CLINICAL PATHOLOGY LABORATORY [address] [place] [address], * QuantiFERON-TB Gold Plus, 1 Tube (12/22/2024 2:14 PM EDT) QuantiFERON-TB Gold Plus NEGATIVE NEGATIVE 12/24/2024 3:33 PM EDT Versus [facility] Comment: Negative test result. M. tuberculosis complex infection unlikely. NIL 0.02 IU/mL 12/24/2024 3:33 PM EDT Versus [facility] Mitogen-NIL 6.90 IU/mL 12/24/2024 3:33 PM EDT Versus [facility] TB1-NIL 0.00 IU/mL 12/24/2024 3:33 PM EDT Versus [facility] TB2-NIL 0.00 IU/mL 12/24/2024 3:33 PM EDT [facility] Comment: The Nil tube value reflects the [...] T-lymphocytes. For additional information, please refer to https://education.TaleSpring/faq/APN316 (This link is being provided for informational/ educational purposes only.) Blood Structure of peripheral vein / Unknown Venipuncture / Unknown 12/22/2024 2:14 PM EDT 12/22/2024 2:42 PM EDT Narrative [facility] 12/24/2024 3:33 PM EDT [facility] Received Date: Lauren Hancock MD LAB BLOOD ORDERABLES Fin al Result [address], [place] [address], Versus [facility] [address], [place] [address], * (ABNORMAL) CBC Auto Differential (12/22/2024 2:14 PM EDT) WBC 4.9 3.8 - 10.8 10*3/uL 12/22/2024 3:21 PM EDT [facility] RBC 4.19 3.80 - 5.10 10*6/uL 12/22/2024 3:21 PM EDT [facility] Hemoglobin 12.1 11.7 - 15.5 g/dL 12/22/2024 3:21 PM EDT [facility] Hematocrit 37.6 35.0 - 45.0 % 12/22/2024 3:21 PM EDT [facility] MCV 89.7 80.0 - 100.0 fL 12/22/2024 3:21 PM EDT [facility] MCH 28.9 27.0 - 33.0 pg 12/22/2024 3:21 PM EDT [facility] MCHC 32.2 32.0 - 36.0 g/dL 12/22/2024 3:21 PM EDT [facility] RDW 14.8 11.0 - 15.0 % 12/22/2024 3:21 PM EDT [facility] Platelets 113(L) 140 - 400 10*3/uL 12/22/2024 3:21 PM EDT [facility] MPV 12/22/2024 3:21 PM EDT [facility] Comment:Test not performed. Neutrophil % 68.8 % 12/22/2024 3:21 PM EDT [facility] Immature Grans % 0.2 0.0 - 0.9 % 12/22/2024 3:21 PM EDT [facility] Lymphocyte % 18.9 % 12/22/2024 3:21 PM EDT [facility] Monocyte % 8.8 % 12/22/2024 3:21 PM EDT [email or web address] Eosinophil % 2.9 % 12/22/2024 3:21 PM EDT [facility] Basophil % 0.4 % 12/22/2024 3:21 PM EDT [facility] Neutrophil # 3.36 1.50 - 7.80 10*3/uL 12/22/2024 3:21 PM EDT [facility] Immature Grans # <0.03 <=0.03 10*3/uL 12/22/2024 3:21 PM EDT [facility] LAB[facility] Lymphocyte # 0.90 0.85 - 3.90 10*3/uL 12/22/2024 3:21 PM EDT [facility] Monocyte # 0.40 0.20 - 0.95 10*3/uL 12/22/2024 3:21 PM EDT [facility] Eosinophil # 0.10 0.02 - 0.50 10*3/uL 12/22/2024 3:21 PM EDT [facility] Basophil # <0.03 0.00 - 0.20 10*3/uL 12/22/2024 3:21 PM EDT [facility] nRBC % 0.0 /100 WBCs 12/22/2024 3:21 PM EDT [facility] nRBC # <0.01 <0.01 10*3/uL 12/22/2024 3:21 PM EDT [facility] Blood Structure of peripheral vein / Unknown Venipuncture / Unknown 12/22/2024 2:14 PM EDT 12/22/2024 2:53 PM EDT Lauren Hancock MD LAB BLOOD ORDERABLES Fin al Result [facility] PATH[facility] LAB[facility]ORY [address] [place] [address], * Smooth Muscle Antibody Screen w/Reflex to Titer (12/22/2024 2:14 PM EDT) Smooth Muscle AB Screen NEGATIVE NEGATIVE 12/25/2024 12:24 PM EDT Versus [facility] Blood Structure of peripheral vein / Unknown Venipuncture / Unknown 12/22/2024 2:14 PM EDT 12/22/2024 2:51 PM EDT Narrative [facility] - 12/25/2024 12:24 PM EDT [facility] Received Date:[id number] us Lauren Hancock MD LAB BLOOD ORDERABLES Fin al Result BALTA MENEZES [address] [facility] [address] [facility], [address] [place] [address], [place] [phone] Versus [facility] [address], [address] [facility] [address], [place] [phone] * (ABNORMAL) Hepatitis C Antibody w/Reflex to PCR (12/22/2024 2:14 PM EDT) Hepatitis C Antibody REACTIVE( A) NON-REACT DEREJE 12/22/2024 10:35 PM EDT [facility] Comment: Based on this result, the sample will be tested for HCV RNA by a Nucleic Acid Amplification Test (NAAT) to determine if the patient has a current active infection. Blood Structure of peripheral vein / Unknown Venipuncture / Unknown 12/22/2024 2:14 PM EDT 12/22/2024 2:51 PM EDT Narrative BAL[facility] MENEZES - 12/22/2024 10:35 PM EDT [facility] Received Date:[id number] us Lauren Hancock MD LAB BLOOD ORDERABLES Fin al Result Performing Organization Address City/[facility]/ZIP Co de Phone Number BALTA MENEZES [address], [place] [address], [place] [phone] Versus [facility] [address], [place] [address], [place] [phone] * (ABNORMAL) Hepatitis A Antibody, Total (12/22/2024 2:14 PM EDT) Hepatitis A Ab, Total REACTIVE( A) NON-REACT DEREJE 12/22/2024 10:28 PM EDT [facility] Comment: For additional information, please refer to http://education.TaleSpring/faq/PBE327 (This link is being provided for informational/ educational purposes only.) Blood Structure of peripheral vein / Unknown Venipuncture / Unknown 12/22/2024 2:14 PM EDT 12/22/2024 2:51 PM EDT [facility] [place] - 12/22/2024 10:28 PM EDT [facility] Received Date: Lauren Hancock MD LAB BLOOD ORDERABLES Fin al Result BALTA [address] Floor, [place] [address], [facility] [address], [place] [address], * STEPHON Screen, Reflex to Titer, IFA (12/22/2024 2:14 PM EDT) Pathologist [facility] [place] STEPHON Screen, IFA NEGATIVE NEGATIVE 10:48 AM EDT [facility] Comment: STEPHON IFA is a first line [...] AC-0: Negative International Consensus on STEPHON Patterns (https://doi.org/10.1515/kbcm-6183-7438) For additional information, please refer to http://education.Studio.Fits.me/faq/ANO840 (This link is being provided for informational/ educational purposes only.) Blood Structure of peripheral vein / Unknown Venipuncture / Unknown 12/22/2024 2:14 PM EDT 12/22/2024 2:52 PM EDT Narrative [facility] - 12/24/2024 10:48 AM EDT [facility] Received Date:[id number] Lauren Hancock MD LAB BLOOD ORDERABLES Fin al Result Performing Organization Address City/[facility]/ZIP Co de Phone Number [facility] [address], [place] [address], [place] [phone] [facility] [address], [place] [address], [place] [phone] * Ceruloplasmin (12/22/2024 2:14 PM EDT) Ceruloplasmin 39 14 - 48 mg/dL 12/23/2024 2:32 AM EDT [facility] Blood Structure of peripheral vein / Unknown Venipuncture / Unknown 12/22/2024 2:14 PM EDT 12/22/2024 2:50 PM EDT Narrative [facility] 12/23/2024 2:32 AM EDT [facility] Received Date:[id number] Lauren Hancock MD LAB BLOOD ORDERABLES Fin al Result Performing Organization Address City/[facility] Co de Phone Number [facility] [address], [place] [address], [place] [phone] [facility] [address], [place] [address], [place] [phone] * (ABNORMAL) Zinc (12/22/2024 2:14 PM EDT) Zinc 54(L) 60 - 130 mcg/dL 12/24/2024 7:44 PM EDT BALTA CARD[facility]) Comment: This test was developed and its analytical performance characteristics have been determined by [employer] [place], [place]. It has not been cleared or approved by the U.S. Food and Drug Administration. This assay has been validated pursuant to the CLIA regulations and is used for clinical purposes. Blood Structure of peripheral vein / Unknown Venipuncture / Unknown 12/22/2024 2:14 PM EDT 12/22/2024 2:50 PM EDT Srik[facility] CARDONA) - 12/24/2024 7:44 PM EDT [facility] Received Date:[id number] Lauren Hancock MD LAB BLOOD ORDERABLES Fin al Result Performing Organization Address [facility] de Phone Number BALTA [place]ARD[place]) [address] [place], [place] , [place] * (ABNORMAL) Vitamin A (Retinol) (12/22/2024 2:14 PM EDT) [facility] Vitamin A (Retinol) 29(L) 38 - 98 mcg/dL 12/24/2024 6:46 PM EDT BALTA CARDONA) Comment: Vitamin supplementation within 24 hours prior to blood draw may affect the accuracy of the results. This test was developed and its analytical performance characteristics have been determined by [employer] [place], [place]. It has not been cleared or approved by the U.S. Food and Drug Administration. This assay has been validated pursuant to the CLIA regulations and is used for clinical purposes. Blood Structure of peripheral vein / Unknown Venipuncture / Unknown 12/22/2024 2:14 PM EDT 12/22/2024 2:46 PM EDT Srikanth CARDONA) - 12/24/2024 6:46 PM EDT [facility] Received Date:[id number] us Lauren Hancock MD LAB BLOOD ORDERABLES Fin al Result Performing Organization Address [facility] de Phone Number BALTA [place]) [address] [place], [place] , [place] * (ABNORMAL) Emma-Dietz Virus VCA, IgG (12/22/2024 2:14 PM EDT) [facility] EBV Viral Capsid Ag Ab (IGG) 652.00(H) U/mL 12/23/2024 3:42 AM EDT [facility] Comment: U/mL Interpretation ---- <18.00 Negative 18.00-21.99 Equivocal >21.99 Positive Blood Structure of peripheral vein / Unknown Venipuncture / Unknown 12/22/2024 2:14 PM EDT 12/22/2024 2:50 PM EDT Srikanth MENEZES - 12/23/2024 3:42 AM EDT [facility] Received Date: us Lauren Hancock MD LAB BLOOD ORDERABLES Fin al Result [facility] [address] [facility] [address] Floor, [place] [address], [place] [phone] Versus [facility] [address], [place] [address], [place] [phone] * Hepatitis B Core Antibody, Total (12/22/2024 2:14 PM EDT) Hepatitis B Core Ab Total NON-REACT DEREJE NON-REACT DEREJE 12/22/2024 7:44 PM EDT [facility] Comment: For additional information, please refer to http://education.TaleSpring/faq/SWV028 (This link is being provided for informational/ educational purposes only.) Blood Structure of peripheral vein / Unknown Venipuncture / Unknown 12/22/2024 2:14 PM EDT 12/22/2024 2:50 PM EDT Narrative [facility] - 12/22/2024 7:44 PM EDT [facility] Received Date:[id number] us Lauren Hancock MD LAB BLOOD ORDERABLES Fin al Result [facility] [address] [facility] 3[address] Floor, [place] [address], [place] [phone] Versus [facility] 200 [facility] 3rd Floor, [place] [address], [place] [phone] * Hepatitis C RNA, Quantitative, PCR (12/22/2024 2:14 PM EDT) Pathologist [facility] [place] Hcv RNA, Quantitative Real Time PCR <15 NOT DETECTED NOT DETECTED IU/mL 12/23/2024 1:16 PM EDT [facility] Hepatitis C Quantitative PCR Log IU/mL <1.18 NOT DETECTED NOT DETECTED Log IU/mL 12/23/2024 1:16 PM EDT [facility] Comment: HCV RNA is not detected. [...] more information on this test, go to: http://education.TaleSpring/faq/UUB34v0 (This link is being provided for informational/ educational purposes only.) This assay is intended for use as an aid in the diagnosis of HCV infection and the management of HCV infected patients undergoing anti-viral therapy. Blood Structure of peripheral vein / Unknown Venipuncture / Unknown 12/22/2024 2:14 PM EDT 12/22/2024 2:51 PM EDT [facility] [place] - 12/23/2024 1:16 PM EDT [facility] Received Date: Lauren Hancock MD LAB BLOOD ORDERABLES Fin al Result BALTA [place] [address] [facility] 3rd Floor, [place] [address], [place] [phone] Versus [facility] 200 [facility] 3rd Floor, [place] [address], [place] [phone] * Vitamin D, 25-Hydroxy, Total, Immunoassay (12/22/2024 2:14 PM EDT) Pathologist [facility] [place] Calcidiol+ercalc idiol 62 30 - 100 ng/mL 12/22/2024 10:26 PM EDT [facility] Comment: Vitamin D Status 25-OH Vitamin D: Deficiency: <20 ng/mL Insufficiency: 20 - 29 ng/mL Optimal: > or = 30 ng/mL For 25-OH Vitamin D testing on patients on D2-supplementation and patients for whom quantitation of D2 and D3 fractions is required, the QuestAssureD(TM) 25-OH VIT D, (D2,D3), LC/MS/MS is recommended: order code 21869 (patients >2yrs). See Note 1 Note 1 For additional information, please refer to http://education.SpinUtopia/faq/FZA803 (This link is being provided for informational/ educational purposes only.) Blood Structure of peripheral vein / Unknown Venipuncture / Unknown 12/22/2024 2:14 PM EDT 12/22/2024 2:51 PM EDT Srik[facility] [place] - 12/22/2024 10:26 PM EDT [facility] Received Date: us Lauren Hancock MD LAB BLOOD ORDERABLES Fin al Result [facility] [address], [place] [address], [place] [phone] Vers[facility] [address], [place] [address], [place] [phone] * Mitochondrial Antibody w/Reflex (12/22/2024 2:14 PM EDT) Mitochondrial Ab Screen NEGATIVE NEGATIVE 12/25/2024 12:24 PM EDT [facility] Blood Structure of peripheral vein / Unknown Venipuncture / Unknown 12/22/2024 2:14 PM EDT 12/22/2024 2:51 PM EDT [facility] [place] - 12/25/2024 12:24 PM EDT [facility] Received Date: us Lauren Hancock MD LAB BLOOD ORDERABLES Fin al Result [facility] [address], [place] [address], [place] [phone] [facility] 200 [facility] [address] [facility], [place] [address], * Toxoplasma gondii Antibody, IgG (12/22/2024 2:14 PM EDT) Pathologist [facility] [place] Toxoplasma Ab IgG <7.20 IU/mL 12/23/2024 4:53 AM EDT [facility] Comment: IU/mL Interpretation ------ <7.20 Negative 7.20-8.79 Equivocal >8.79 Positive Blood Structure of peripheral vein / Unknown Venipuncture / Unknown 12/22/2024 2:14 PM EDT 12/22/2024 2:51 PM EDT [employer] [place] - 12/23/2024 4:53 AM EDT [facility] Received Date:[id number] us Lauren Hancock MD LAB BLOOD ORDERABLES Fin al Result [facility] 200 [facility] 3rd Floor, [place] [address], [facility] 200 [facility] 3rd Floor, [place] [address], * HIV-1/2 Antigen/Antibodies 4th Generation w/Reflex (12/22/2024 2:14 PM EDT) [facility] HIV Final Interp See Comments 12/22/2024 7:45 PM EDT [facility] Comment: HIV Negative HIV-1 antigen and HIV-1/HIV-2 antibodies were not detected. There is no laboratory evidence of HIV infection. Blood Structure of peripheral vein / Unknown Venipuncture / Unknown 12/22/2024 2:14 PM EDT 12/22/2024 2:50 PM EDT [employer] [place] - 12/22/2024 7:45 PM EDT [employer] Received Date:[id number] us Lauren Hancock MD LAB BLOOD ORDERABLES Fin al Result [facility] [place] [address] [facility] [address] [facility], [place] [address], [place] [phone] [facility] [address], [place] [address], [place] [phone] * Hepatitis B Surface Antibody (12/22/2024 2:14 PM EDT) Pathologist [facility] [place] Hepatitis B Surface Ab Immunity, Qn 173 > OR = 10 mIU/mL 12/22/2024 10:28 PM EDT [facility] Comment: PATIENT HAS IMMUNITY TO HEPATITIS B VIRUS. For additional information, please refer to http://PinkUP.TaleSpring/faq/DMD427 (This link is being provided for informational/ educational purposes only). Blood Structure of peripheral vein / Unknown Venipuncture / Unknown 12/22/2024 2:14 PM EDT 12/22/2024 2:51 PM EDT Narrative [facility] [place] - 12/22/2024 10:28 PM EDT [facility] Received Date:[id number] us Lauren Hancock MD LAB BLOOD ORDERABLES Fin al Result Performing Organization Address City/[facility]/ZIP Co de Phone Number BALTA MENEZES [address], [place] [address], [place] [phone] Versus [facility] [address], [place] [address], [place] [phone] * Hepatitis B Surface Antigen w/Confirmation (12/22/2024 2:14 PM EDT) Pathologist [facility] [place] Hepatitis B Surface Antigen NON-REACT DEREJE NON-REACT DEREJE 12/23/2024 10:30 AM EDT [facility] Comment: For additional information, please refer to [email or web address].[email or web address]/faq/[email or web address] (This link is being provided for informational/ educational purposes only.) Blood Structure of peripheral vein / Unknown Venipuncture / Unknown 12/22/2024 2:14 PM EDT 12/22/2024 2:52 PM EDT Srikanth MENEZES - 12/23/2024 10:30 AM EDT [facility] Received Date:[id number] us Lauren Hancock MD LAB BLOOD ORDERABLES Fin al Result Performing Organization Address City/[facility]/ZIP Co de Phone Number [facility] [address], [place] [address], [place] [phone], [place] [address], * (ABNORMAL) Cytomegalovirus Antibody, IgG (12/22/2024 2:14 PM EDT) Cytomegalovirus Antibody (IgG) >10.00(H ) U/mL 12/23/2024 3:42 AM EDT [facility] Comment: U/mL Interpretation ----- <0.60 Negative 0.60-0.69 Equivocal > or = 0.70 Positive A positive result indicates that the patient has antibody to CMV. It does not differentiate between an active or past infection. Blood Structure of peripheral vein / Unknown Venipuncture / Unknown 12/22/2024 2:14 PM EDT 12/22/2024 2:50 PM EDT Srikanth MENEZES - 12/23/2024 3:42 AM EDT [facility] Received Date:[id number] us Lauren Hancock MD LAB BLOOD ORDERABLES Fin al Result [facility] 200 [facility] [address], [place] [address], [place] [phone] Versus [facility] [address], [place] [address], * PTT (12/22/2024 2:14 PM EDT) aPTT 29.1 23.0 - 32.0 Seconds 12/22/2024 3:16 PM EDT [facility] Comment: Current PTT reagent is not sensitive to detect all Lupus Anticoagulant (LA) Inhibitor Cases. If a LA is suspected, please order a Lupus Anticoagulation w/ Reflex Test which is performed at [facility] in [place], [place]. Blood Structure of peripheral vein / Unknown Venipuncture / Unknown 12/22/2024 2:14 PM EDT 12/22/2024 2:53 PM EDT us Lauren Hancock MD LAB BLOOD ORDERABLES Fin al Result Performing Organization Address [facility] Co de Phone Number [facility] CLINICAL PATHOLOGY LABORATORY [address] [place] [address], [place] * (ABNORMAL) Protime-INR (12/22/2024 2:14 PM EDT) PT 12.6(H) 9.6 - 12.4 Seconds 12/22/2024 3:16 PM EDT [email or web address] CLINICAL PATHOLOGY LABORATORY INR 1.2 0.9 - 1.1 12/22/2024 3:16 PM EDT [email or web address] CL[facility] PATHOLOG[facility] LABORATORY Comment:The optimal therapeu tic INR range for patients treated with Vitamin K antagonists (VKAS, e.g., Warfarin) is 2.0 to 3.5. Discuss the desired range with your doctor/care team. Blood Structure of peripheral vein / Unknown Venipuncture / Unknown 12/22/2024 2:14 PM EDT 12/22/2024 2:53 PM EDT us Lauren Hancock MD LAB BLOOD ORDERABLES Fin al Result Performing Organization Address [facility]/ZIP Co de Phone Number [facility] CLINICAL PATHOLOGY LABORATORY [address] [place] [address], [place] * Type and Screen (12/22/2024 2:14 PM EDT) ABO Blood Type A 12/22/2024 3:35 PM EDT [facility] RH Type Positive 12/22/2024 3:35 PM EDT [facility] Expiration Date/Time 2024-12-25 23:59 12/22/2024 3:35 PM EDT [facility] Antibody Screen Negative 12/22/2024 3:35 PM EDT [facility] Blood Structure of peripheral vein / Unknown Venipuncture / Unknown 12/22/2024 2:14 PM EDT 12/22/2024 2:17 PM EDT Lauren Hancock MD LAB BLOOD BANK TEST KATHRINE BLANCAS Final Result [facility] [address] [place] [address], * Varicella Zoster Antibody, IgG (12/22/2024 2:14 PM EDT) Pathologist [facility] [place] Varicella Zoster Virus Antibody 30.50 S/CO 12/22/2024 10:41 PM EDT [facility] Comment: Signal to Cut-off S/CO Interpretation [...] EDT 12/22/2024 2:51 PM EDT Narrative [facility] - 12/22/2024 10:41 PM EDT [facility] Received Date:[id number] us Lauren Hancock MD LAB BLOOD ORDERABLES Fin al Result [facility] 200 [facility] 3rd [address], [place] [address], [place] [phone] [facility] 200 [facility] 3rd Floor, [place] [address], [place] [phone] * Phosphorus (12/22/2024 2:14 PM EDT) Phosphorus 4.0 2.5 - 4.5 mg/dL 12/22/2024 3:36 PM EDT [facility] CL[facility]ICAL PATHOLOGY LABORATORY Blood Structure of peripheral vein / Unknown Venipuncture / Unknown 12/22/2024 2:14 PM EDT 12/22/2024 2:51 PM EDT us Lauren Hancock MD LAB BLOOD ORDERABLES Fin al Result Performing Organization Address City/[facility]/ZIP Co de Phone Number [facility] CL[facility] PATHOLOG[facility] LABORATORY [address] [place] [address], [place] * Magnesium (12/22/2024 2:14 PM EDT) MG 1.6 1.6 - 2.4 mg/dL 12/22/2024 3:36 PM EDT [facility] Blood Structure of peripheral vein / Unknown Venipuncture / Unknown 12/22/2024 2:14 PM EDT 12/22/2024 2:51 PM EDT us Lauren Hancock MD LAB BLOOD ORDERABLES Fin al Result [facility] LAB[facility]ORY [address] [place] [address], [place] * (ABNORMAL) Hemoglobin A1c (12/22/2024 2:14 PM EDT) Hemoglobin A1C 5.9(H) <5.7 % 12/22/2024 8:27 PM EDT [facility] Comment: For someone without known diabetes, a [...] (MG/DL) 123 mg/dL 12/22/2024 8:27 PM EDT [facility] eAG (MMOL/L) 6.8 mmol/L 12/22/2024 8:27 PM EDT [facility] Blood Structure of peripheral vein / Unknown Venipuncture / Unknown 12/22/2024 2:14 PM EDT 12/22/2024 2:51 PM EDT Narrative [facility] - 12/22/2024 8:27 PM EDT [facility] Received Date: Lauren Hancock MD LAB BLOOD ORDERABLES Fin al Result [facility] [address], [place] [address], [facility] 200 [facility] 3rd Floor, [place] [address], * Ferritin (12/22/2024 2:14 PM EDT) Ferritin 172.0 11.0 - 306.0 ng/mL 12/22/2024 3:36 PM EDT [facility] Blood Structure of peripheral vein / Unknown Venipuncture / Unknown 12/22/2024 2:14 PM EDT 12/22/2024 2:51 PM EDT Lauren Hancock MD LAB BLOOD ORDERABLES Fin al Result Performing Organization Address City/[facility]/ZIP Co de Phone Number [facility] LAB[facility] [address] [place] [address], [place] * Bilirubin, Direct (12/22/2024 2:14 PM EDT) Bilirubin, Direct 0.3 <=0.4 mg/dL 12/22/2024 3:36 PM EDT [facility] Blood Structure of peripheral vein / Unknown Venipuncture / Unknown 12/22/2024 2:14 PM EDT 12/22/2024 2:51 PM EDT us Lauren Hancock MD LAB BLOOD ORDERABLES Fin al Result Performing Organization Address [facility] Co de Phone Number [facility] LAB[facility] [address] [place] [address], [place] * Ethanol (12/22/2024 2:14 PM EDT) Ethanol <10 <10 mg/dL 12/22/2024 3:38 PM EDT [facility] Blood Structure of peripheral vein / Unknown Venipuncture / Unknown 12/22/2024 2:14 PM EDT 12/22/2024 2:50 PM EDT Lauren Hancock MD LAB BLOOD ORDERABLES Fin al Result Performing Organization Address City/[facility]/ZIP Co de Phone Number [facility] [address] [place] [address], [place] * (ABNORMAL) Lipid panel (12/22/2024 2:14 PM EDT) Cholesterol 203(H) <=199 mg/dL 12/22/2024 3:36 PM EDT [facility] Triglycerides 171(H) <=149 mg/dL 12/22/2024 3:36 PM EDT [facility] LAB[facility] Cholesterol, HDL 39(L) 40 - 59 mg/dL 12/22/2024 3:36 PM EDT [facility] Cholesterol, Non-HDL 164 mg/dL 12/22/2024 3:36 PM EDT [facility] LDL Cholesterol 130(H) <100 mg/dL 12/22/2024 3:36 PM EDT [facility] VLDL 34.2 mg/dL 12/22/2024 3:36 PM EDT [facility] Cholesterol/HDL Ratio 5.2(H) <5.0 12/22/2024 3:36 PM EDT [facility] Blood Structure of peripheral vein / Unknown Venipuncture / Unknown 12/22/2024 2:14 PM EDT 12/22/2024 2:51 PM EDT [facility] CLINICAL PATHOLOGY LABORATORY - 12/22/2024 3:36 PM [...] MD LAB BLOOD ORDERABLES Fin al Result [facility] [address] [place] [address], * (ABNORMAL) Comprehensive Metabolic Panel (12/22/2024 2:14 PM EDT) NA 141 135 - 145 mmol/L 12/22/2024 3:36 PM EDT [facility] PATHOLOG[facility] LAB[facility] K 3.9 3.5 - 5.3 mmol/L 12/22/2024 3:36 PM EDT [facility] Cl 101 98 - 107 mmol/L 12/22/2024 3:36 PM EDT [facility] CO2 27 22 - 32 mmol/L 12/22/2024 3:36 PM EDT [facility] Anion Gap 13 5 - 15 12/22/2024 3:36 PM EDT [facility] Glucose 85 65 - 99 mg/dL 12/22/2024 3:36 PM EDT [facility] Creatinine 0.77 0.50 - 1.20 mg/dL 12/22/2024 3:36 PM EDT [facility] Calcium 10.5 8.6 - 10.5 mg/dL 12/22/2024 3:36 PM EDT [facility] Total Protein 8.3(H) 6.0 - 8.0 g/dL 12/22/2024 3:36 PM EDT [facility] Albumin 3.9 3.5 - 5.2 g/dL 12/22/2024 3:36 PM EDT [facility] Bilirubin, Total 0.6 0.2 - 1.2 mg/dL 12/22/2024 3:36 PM EDT [facility] LAB[facility] Alkaline Phosphatase 71 35 - 129 U/L 12/22/2024 3:36 PM EDT [facility] PATH[facility] LAB[facility] AST 35 10 - 40 U/L 12/22/2024 3:36 PM EDT [facility] ALT 30 10 - 40 U/L 12/22/2024 3:36 PM EDT [facility] BUN 12 7 - 23 mg/dL 12/22/2024 3:36 PM EDT [facility] PATHOLOG[facility] LAB[facility] eGFR 83 >=60 mL/min/1. 73m2 12/22/2024 3:36 PM EDT [email or web address] LAB[facility] Comment:The estimated glomer ular [...] - 4.2 g/dL 12/22/2024 3:36 PM EDT [facility] CLINICAL PATHOLOGY LABORATORY A/G Ratio 0.9(L) 1.5 - 3.0 12/22/2024 3:36 PM EDT [facility] CLINICAL PATHOLOGY LABORATORY Blood Structure of peripheral vein / Unknown Venipuncture / Unknown 12/22/2024 2:14 PM EDT 12/22/2024 2:51 PM EDT Lauren Hancock MD LAB BLOOD ORDERABLES Fin al Result [facility] CLINICAL PATHOLOGY LABORATORY [address] [place] [address], from Last 3 Months Insurance [address] [place] [id number] [employer] [id number] [place] [address] [employer] [id number] MEDICARE Advance Directives Documents on File Type Date Recorded Patient Center Director Expl anation Health Care Proxy 01/19/2025 2:50 PM 2024 Care Teams Freight Hustler Relationship Specialty Start Date End Date Darius Tamayo MD [address] [place] [address] PCP - General Gastroenterology 12/22/24
--- OUTSIDE RECORDS SUMMARY | 2025-03-15 15:41 | XMS_ITS | Encounter Summary ---
Author Organization [facility] Address [address] [place] [address] Care Team Providers Care Child Care Centre Director Name Role Phone Darius Tamayo MD Primary Care Provider [phone] Encounter Details Date Type Department Care Team (Late st Contact Info) Description 12/22/2024 Education [facility] Transplant Department [address] [place] [phone] Sabrina Dahl RN Social History Tobacco Use [...] Info) Description 03/18/2025 2:00 PM EST Follow-Up [facility] Liver Transplant Services [address] [place] [address] Lauren Hancock MD [address] [place] [address] 04/02/2025 10:00 AM EST Office Visit [facility] Building 4th floor Cardiology Medicine [address] [place] [address] Thread Reeler: James Reynoso MD [address] [place] [address] documented as of this encounter Visit Diagnoses Not on filedocumented in this encounter Care Teams Child Care Centre Director Relationship Specialty Start Date End Date Darius Tamayo MD [address] [place] [address] PCP - General Gastroenterology 12/22/24 documented as of this encounter
--- OUTSIDE RECORDS SUMMARY | 2025-03-15 15:41 | XMS_ITS ---
Author Organization [facility] Address [address] [place] [address] Care Team Providers Care Drop Hammer Operator Helper Name Role Phone Darius Tamayo MD Primary Care Provider [phone] Transplant Episode Liver Candidate [facility] ([place], [place]) [facility] Center waitlisted on 03/02/2025 Marked as Active on 03/02/2025 Liver CoordinatorSabrina Dahl RN Phone: N/A Fax: N/A Email: N/A Scores Score Value Updated Expires Exceptions/Jeannie sons CPRA Not available UNOS MELD 11 03/02/2025 05/31/2025 MELD (Calc) 11 03/01/2025 [place] Organ Diagnosis Organ Primary Contributory Liver Primary Liver Malign kary: Hepatoma (HCC) and Cirrhosis 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) Infection History Noted Survival Infection Treatment Organism Resolved 11/25/2015 Chronic hepatitis C Care Team Name Role Phone Fax Email Sabrina Dahl RN Liver Coordinator N/A N/A N/A Lauren Hancock MD Distributor Of Directories [phone] Rayna [email or web address] Darius Tamayo MD Referring Physician [phone] [email or web address] Pre-Transplant Referred: 12/01/2024 Evaluation began: 12/22/2024 Committee: 01/28/2025 Center waitlisted: 03/02/2025 Appointments (02/12/2025 - 04/14/2025) When With Visit Type Description 03/18/2025 Transplant - [facility]
== END 2025-03-15 12:51 | disposition home or self-care (01) ==
LOC: HO.HGI 12:32
PROVIDERS: PCP Nurse Practitioner Primary Care; Visit Provider Internal Medicine Gastroenterology
DX: C22.0 Liver cell carcinoma (principal)
CPT/HCPCS: 99214

== ENCOUNTER 2025-03-16 10:01 | Outpatient (AMB) | payer MEDICARE, MEDICAID, SELFPAY ==
[2025-03-16 10:36] VITALS: BMI 30.7
--- NOTE | 2025-03-16 10:36 | MHC.OFFVIS ---
Vital Signs 03/16/25 10:36 Height 4 ft 11 in Weight 152 lb BMI 30.7 Intake Visit Reasons: STRETCHING MACHINE TENDER FRAME- Right hand pain/ middle finger Intake Note: Walt 69 yr old right hand dominant female who is unemployed, presents today for a new patient evaluation visit for her right hand middle finger pain. States pain started 3-4 years ago and has not improved. Her finger locks and becomes very painful. Currently she is not able to straighten out her finger. She was last seen with Dr Irene in 2021 where she was signed up for surgery but never went thought with it. Denies numbness, tingling or injury. States she would like to discuss surgery once again. Allergies rivaroxaban (From XARELTO) Allergy (Intermediate, Verified 03/16/25 10:40) GI BLEEDING SEAFOOD Allergy (Intermediate, Uncoded 03/16/25 10:40) RASH HPI HPI STRETCHING MACHINE TENDER FRAME- Right hand pain/ middle finger: Details: Walt is a 69 year old right hand dominant woman who returns for her right middle finger flexion contracture. She was last seen on 02/06/22 where she was signed up for surgery, but she did not go through with the procedure. She complains of ongoing pain & limited ROM of her right middle finger, along with occasional locking & catching of her finger. She says she is not able to fully straighten her finger out, and she says she can never make a fist due to pain. She would like to discuss surgery again She also has a Hx of a left middle finger trigger finger, with a PIP joint flexion contracture. Treatment was supposed to be discussed when she had recovered from her right hand surgery, but this did not happen. She has Afib & is on Eliquis. She also has liver cancer and has completed a course of Chemotherapy and is due to follow up in several months with oncology. [facility] Medical History Hemorrhage of gastrointestinal tract, unspecified PAF (paroxysmal atrial fibrillation) Tubular adenoma of colon Low vitamin D level Atrial fibrillation Cirrhosis of liver Asthma Hepatitis B Surgical History Hx of cataract surgery History of eyelid surgery History of esophagogastroduodenoscopy (EGD) Hx of colonoscopy History of total abdominal hysterectomy and bilateral salpingo-oophorectomy History of 3 sections Family History Father No problems noted. Mother No problems noted. 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 Review of Systems Const All systems reviewed & are unremarkable except as noted in HPI and below Physical Exam Vital Signs: BMI result Body Mass Index 30.7 Const General: cooperative, healthy appearing and no acute distress Orientation/consciousness: patient oriented x3 HEENT Head: Yes normocephalic and Yes atraumatic Eyes EOM: EOMs intact bilaterally Resp Effort & Inspection: normal respiratory effort and able to speak in complete sentences Cardio Jugular venous distension: no JVD Skin General skin exam: turgor normal Rashes: no rashes Neuro General: patient oriented x3 Extrem Other: Evaluation of Right Upper Extremity: The patient is alert, oriented, and in no acute distress Neuro: Median, Ulnar, Radial nerves motor and sensory intact and sensation is normal to the tips of all digits Vascular: Cap refill brisk ROM: Can bring fingers all her fingers closed to a fist, and bring her index, ring, and small fingers back into full extension. She has a right middle finger ~50 degree PIP joint flexion contracture that is not reducible in clinic today. She is able to demonstrate active flexion at the DIP and PIP joints, but it is limited. She also has a DIP flexion contracture, which corrects when the PIP is flexed. She can actively flex her PIP joint from ~50-90 degrees She can fully flex & extend at her MCP joint, though this does not improve her PIP joint contracture Skin: No lacerations or abrasions. General: No Ecchymosis. No Erythema or evidence of infection. Psych Appearance: grossly normal Affect: normal affect Attitude: cooperative Assessment & Plan Assessment & Plan (1) Trigger finger, right middle finger: Code(s): M65.331 - Trigger finger, right middle finger Category: Medical (2) Trigger finger, left middle finger: Code(s): M65.332 - Trigger finger, left middle finger Category: Medical (3) Contracture of joint of finger of right hand: Code(s): M24.541 - Contracture, right hand Category: Medical Plan Assessment & plan: 1. Right middle finger ~50 degree PIP joint flexion contracture. Not reducible in clinic She gives a history of having locking and catching when she made a fist. Most likely secondary to a trigger finger which may now be locked in some flexion, in addition to the 50 degree PIP joint flexion contracture Onset ~4 years ago I educated her about this condition Again, I believe the most likely etiology of her flexion contracture is a long-standing trigger finger where when it hurt to bring the finger into full flexion because of locking, she stopped bringing it into full flexion, and went her to bring it into full extension she stopped bring it into full extension. Discussed operative and non operative treatment options. I recommend surgery, and she is in agreement The risks and benefits of operative treatment were discussed with the patient and the patient wishes to proceed with surgery. These risks include, but are not limited to risk of damage to blood vessels, nerves, tendons, infection, recurrence, incomplete relief of preoperative symptoms, persistent pain, fracture, possible need for further surgery and the risks associated with regional blocks and anesthesia. The plan is to take the patient to the operating room sometime in the next few weeks for the following procedures: 1. Right middle trigger finger release, under general 2. Right middle finger PIP joint closed manipulation, under general 3. Right middle finger possible release of volar plate, under general All of the preoperative paperwork including the consent was filled out today. All the patient's questions were answered. The patient understands that they will be contacted by our plastic surgery technician soon to schedule this procedure. She denies Diabetes, asthma, lung, kidney issues She has AFib & is on Eliquis. Discuss possible Cardiology clearance with anesthesia. She also has liver cancer and has completed a course of Chemotherapy and is due to follow up in several months with oncology. 2. Left middle finger trigger finger with an ~10 degree PIP joint flexion contracture We are treating this conservatively for now. Scribed for Lindy Irene MD by Derik Clemons medical research assistant, on 03/16/25 at 11:05 AM, EST. Coding Level of Care Code Est Pt Level 4 (66994) Diagnoses Trigger finger, right middle finger M65.331 Trigger finger, left middle finger M65.332 Contracture of joint of finger of right hand M24.541
--- OUTSIDE RECORDS SUMMARY | 2025-03-16 11:40 | XMS_ITS | Encounter Summary ---
Author Organization [employer] Address [address] [place] [address] Care Team Providers Care Caretaker Grounds Name Role Phone Sudha Mitchell Primary Care Provider [phone] Everett Rojas MD Unavailable [phone] Reason for Visit * Reason Comments Med Refill Encounter Details Date Type Department Care Team ([facility] st Contact Info) Description 02/20/2024 Refill C [facility] [address] [place] [address] Sudha Mitchell ANP [address] [place] [address] Lumbago of lumbar region with sciatica Social [...] Description 03/22/2025 2:00 PM EST Office Visit [facility] [address] [place] [phone] Sudha Mitchell ANP [address] [place] [address] documented as of this encounter Visit Diagnoses Diagnosis Lumbago of lumbar region with sciatica documented in this encounter Care Teams Caretaker Grounds Relationship Specialty Start Date End Date Sudha Mitchell ANP [address] [place] [address] PCP - General Family Medicine 09/29/19 Everett Rojas MD [address]rd [place] [address] Cardiology 04/21/24 documented as of this encounter
--- OUTSIDE RECORDS SUMMARY | 2025-03-16 11:40 | XMS_ITS | Encounter Summary ---
Author Organization [employer] Address [address] [facility] 7t [place] [address] Care Team Providers Care Umbrella Tipper Machine Name Role Phone Sudha Mitchell Primary Care Provider [phone] Everett Rojas MD Unavailable [phone] Reason for Visit * Reason Comments Med Refill Encounter Details Date Type Department Care Team ([facility] st Contact Info) Description 10/18/2023 Refill [facility] 230 [place] [address] Sudha Mitchell ANP 230 [place] [address] Lumbago of lumbar region with sciatica Social [...] Description 03/22/2025 2:00 PM EST Office Visit [facility] [address] [place] [address] Sudha Mitchell ANP [address] [place] [address] documented as of this encounter Visit Diagnoses Diagnosis Lumbago of lumbar region with sciatica documented in this encounter Care Teams Umbrella Tipper Machine Relationship Specialty Start Date End Date Sudha Mitchell ANP [address] [place] [address] PCP - General Family Medicine 09/29/19 Everett Rojas MD [address] [place] [address] 3rd [place] [address] Cardiology 04/21/24 documented as of this encounter
--- OUTSIDE RECORDS SUMMARY | 2025-03-16 11:40 | XMS_ITS | Encounter Summary ---
Author Organization [email or web address] Address [address] [place] [address] 7t [place] [address] Care Team Providers Care Custom Ski Maker Name Role Phone Sudha Mitchell Primary Care Provider Everett Rojas MD Unavailable [phone] Reason for Visit * Reason Comments Med Refill Encounter Details Date Type Department Care Team (Late st Contact Info) Description 08/14/2022 Refill [facility] [address] [place] [address] [place] [facility] 230 [place] [address] Lumbago of lumbar region with sciatica Social [...] Description 03/22/2025 2:00 PM EST Office Visit [facility] [address] [place] [address] Sudha Mitchell ANP 230 [place] [address] documented as of this encounter Visit Diagnoses Diagnosis Lumbago of lumbar region with sciatica documented in this encounter Care Teams Custom Ski Maker Relationship Specialty Start Date End Date Sudha Mitchell ANP [address] [place] [address] PCP - General Family Medicine 09/29/19 Everett Rojas MD [address] [place] [address] Drive 3rd [place] [address] Cardiology 04/21/24 documented as of this encounter
--- OUTSIDE RECORDS SUMMARY | 2025-03-16 11:40 | XMS_ITS | Encounter Summary ---
Author Organization [email or web address] Address [address] [facility] [address] 7t [place] [address] Care Team Providers Care Mortgage Clerk Name Role Phone Sudha Mitchell Primary Care Provider [phone] Everett Rojas MD Unavailable [phone] Reason for Visit * Reason Comments Med Refill Encounter Details Date Type Department Care Team ([facility] st Contact Info) Description 03/23/2024 Refill [facility] [address] [place] [address] Sudha Mitchell ANP [address] [place] [address] Lumbago of lumbar region with sciatica Social [...] 2:00 PM EST Office Visit [facility] [address] [place] [address] Sudha Mitchell ANP 230 [place] [address] documented as of this encounter Visit Diagnoses Diagnosis Lumbago of lumbar region with sciatica documented in this encounter Care Teams Mortgage Clerk Relationship Specialty Start Date End Date Sudha Mitchell ANP [address] [place] [address] PCP - General Family Medicine 09/29/19 Everett Rojas MD [address] 3rd [place] [address] Cardiology 04/21/24 documented as of this encounter
--- OUTSIDE RECORDS SUMMARY | 2025-03-16 11:40 | XMS_ITS | Encounter Summary ---
Author Organization [employer] Address [address] [facility] [address] 7t [place] [address] Care Team Providers Care Manager Rn Case Name Role Phone Sudha Mitchell Primary Care Provider [phone] Everett Rojas MD Unavailable [phone] Reason for Visit * Reason Comments Med Refill Encounter Details Date Type Department Care Team ([facility] st Contact Info) Description 09/18/2023 Refill [facility] [address] [place] [address] Sudha Mitchell ANP [address] [place] [address] Lumbago of lumbar region with sciatica Social [...] Description 03/22/2025 2:00 PM EST Office Visit [facility] [address] [place] [address] Sudha Mitchell ANP [address] [place] [address] documented as of this encounter Visit Diagnoses Diagnosis Lumbago of lumbar region with sciatica documented in this encounter Care Teams Manager Rn Case Relationship Specialty Start Date End Date Sudha Mitchell ANP [address] [place] [address] PCP - General Family Medicine 09/29/19 Everett Rojas MD [address] [place] [address] 3rd [place] [address] Cardiology 04/21/24 documented as of this encounter
--- OUTSIDE RECORDS SUMMARY | 2025-03-16 11:40 | XMS_ITS | Encounter Summary ---
Author Organization [employer] Address [address] [facility] [address] 7t [place] [address] Care Team Providers Care Insurance Sales Assistant Name Role Phone Sudha Mitchell Primary Care Provider [phone] Everett Rojas MD Unavailable [phone] Encounter Details Date Type Department Care Team ([facility] st Contact Info) Description 03/15/2025 Refill [facility] 230 [place] [address] Sudha Mitchell ANP 230 [place] [address] Social History Tobacco Use Types Packs/Day Years [...] Description 03/22/2025 2:00 PM EST Office Visit [facility] 230 [place] [address] Sudha Mitchell ANP 230 [place] [address] documented as of this encounter Visit Diagnoses Not on filedocumented in this encounter Additional Health Concerns Assessment Noted Time PHQ-9 Depression Total Score: 7 10/08/19 25 7:52 AM EDT documented as of this encounter Care Teams Insurance Sales Assistant Relationship Specialty Start Date End Date Sudha Mitchell ANP [address] [place] [address] PCP - General Family Medicine 09/29/19 Everett Rojas MD [address] 3rd [place] [address] Cardiology 04/21/24 documented as of this encounter
--- OUTSIDE RECORDS SUMMARY | 2025-03-16 11:40 | XMS_ITS | Encounter Summary ---
Author Organization [employer] Address 75 [facility] 7t [place] [address] Care Team Providers Care Consulting Psychiatrist Name Role Phone Sudha Mitchell Primary Care Provider [phone] Everett Rojas MD Unavailable [phone] Reason for Visit * Reason Onset Date Comments Pre-op Visit 12/20/2023 Encounter Details Date Type Department Care Team ([facility] st Contact Info) Description 12/20/2023 Telephone [facility] 230 [place] [address] Sudha Mitchell ANP 230 [place] [address] Pre-op Visit Social History Tobacco Use Types [...] [facility] Surgeon's office number: [phone] Ext [phone] Surgeon's office fax number: [phone] Contact name: Mara Last office note from surgeon requested: Yes documented in this encounter Plan of Treatment Upcoming Encounters Date Type Department Care Team (Late st Contact Info) Description 03/22/2025 2:00 PM EST Office Visit [facility] 230 [place] [address] Sudha Mitchell ANP 230 [place] [address] documented as of this encounter Visit Diagnoses Not on filedocumented in this encounter Care Teams Consulting Psychiatrist Relationship Specialty Start Date End Date Sudha Mitchell ANP 230 [place] [address] PCP - General Family Medicine 09/29/19 Everett Rojas MD [address] [place] [address] Drive 3rd [place] [address] Cardiology 04/21/24 documented as of this encounter
--- OUTSIDE RECORDS SUMMARY | 2025-03-16 11:40 | XMS_ITS | Encounter Summary ---
Author Organization [employer] Address [address] [place] [address] 7t [place] [address] Care Team Providers Care Technology Sales Representative Name Role Phone Sudha Mitchell Primary Care Provider Everett Rojas MD Unavailable [phone] Reason for Visit * Reason Comments Med Refill Encounter Details Date Type Department Care Team (Late st Contact Info) Description 01/22/2023 Refill [facility]INE [address] [place] [address] [phone] Sudha Mitchell ANP 230 [place], [place] [phone] Lumbago of lumbar region with sciatica Social [...] Description 03/22/2025 2:00 PM EST Office Visit [facility] [address] [place] [phone] Sudha Mitchell ANP 230 [place], [place] [phone] documented as of this encounter Visit Diagnoses Diagnosis Lumbago of lumbar region with sciatica documented in this encounter Care Teams Technology Sales Representative Relationship Specialty Start Date End Date Sudha Mitchell ANP [address] [place] [address] PCP - General Family Medicine 09/29/19 Everett Rojas MD [address] [place] [address] 3rd [place] [address] Cardiology 04/21/24 documented as of this encounter
--- OUTSIDE RECORDS SUMMARY | 2025-03-16 11:40 | XMS_ITS | Encounter Summary ---
Author Organization [employer] Address [address] [place] [address] 7t [place] [address] Care Team Providers Care Portable Pinch Riveter Name Role Phone Sudha Mitchell Primary Care Provider [phone] Everett Rojas MD Unavailable [phone] Reason for Visit * Reason Onset Date Comments Med Refill 11/23/2022 Encounter Details Date Type Department Care Team (Late st Contact Info) Description 11/23/2022 Telephone [facility] [address] [place] [address] Sudha Mitchell ANP 230 [place] [address] Med Refill Social History Tobacco Use Types [...] Description 03/22/2025 2:00 PM EST Office Visit [facility] [address] [place] [address] Sudha Mitchell ANP 230 [place] [address] documented as of this encounter Visit Diagnoses Not on filedocumented in this encounter Care Teams Portable Pinch Riveter Relationship Specialty Start Date End Date Sudha Mitchell ANP 230 [place] [address] PCP - General Family Medicine 09/29/19 Everett Rojas MD [address] [place] [address] 3rd [place] [address] Cardiology 04/21/24 documented as of this encounter
--- OUTSIDE RECORDS SUMMARY | 2025-03-16 11:40 | XMS_ITS | Encounter Summary ---
Author Organization [employer] Address 75 [facility] 7t [place] [address] Care Team Providers Care Sap Grc Security Name Role Phone Sudha Mitchell Primary Care Provider [phone] Everett Rojas MD Unavailable [phone] Reason for Visit * Reason Comments Med Refill Encounter Details Date Type Department Care Team ([facility] st Contact Info) Description 03/12/2025 Refill [facility] [address] [place] [address] Sudha Mitchell ANP [address] [facility] [place] [address] Moderate persistent asthma without complication Social History [...] Description 03/22/2025 2:00 PM EST Office Visit [facility] 230 [place] [address] Sudha Mitchell ANP 230 [place] [address] documented as of this encounter Visit Diagnoses Diagnosis Moderate persistent asthma without complication documented in this encounter Additional Health Concerns Assessment Noted Time PHQ-9 Depression Total Score: 7 10/08/19 25 7:52 AM EDT documented as of this encounter Care Teams Sap Grc Security Relationship Specialty Start Date End Date Sudha Mitchell ANP [address] [place] [address] PCP - General Family Medicine 09/29/19 Everett Rojas MD [address] 3rd [place] [address] Cardiology 04/21/24 documented as of this encounter
--- OUTSIDE RECORDS SUMMARY | 2025-03-16 11:40 | XMS_ITS | Encounter Summary ---
Author Organization [employer] Address [address] [place] [address] 7t [place] [address] Care Team Providers Care Industrial Tech Instructor Name Role Phone Stephen Sudha WEI Primary Care Provider [phone] Everett Rojas MD Unavailable [phone] Reason for Visit * Reason Comments Med Refill Encounter Details Date Type Department Care Team ([facility] st Contact Info) Description 12/30/2023 Refill [facility] MED[facility]INE 230 [place] [address] Fabi Boudreaux MD 230 [place] [address] Lumbago of lumbar region with sciatica Social [...] Description 03/22/2025 2:00 PM EST Office Visit [facility] MED[facility]INE [address] [place] [address] Sudha Mitchell ANP [address] [place] [address] documented as of this encounter Visit Diagnoses Diagnosis Lumbago of lumbar region with sciatica documented in this encounter Care Teams Industrial Tech Instructor Relationship Specialty Start Date End Date Sudha Mitchell ANP [address] [place] [address] PCP - General Family Medicine 09/29/19 Everett Rojas MD [address] [place] [address] 3rd [place] [address] Cardiology 04/21/24 documented as of this encounter
--- OUTSIDE RECORDS SUMMARY | 2025-03-16 11:40 | XMS_ITS | Clinical Summary ---
Author Organization [employer] Address [address] [facility] 7t [place] [address] Care Team Providers Care Pricer Bagger Name Role Phone Stephen Tom WEI Primary Care Provider [phone] Everett Rojas MD Unavailable [phone] Allergies Active Allergy Reactions Criticality Noted Date Comments Rivaroxaban High 03/28/2020 GIB Shellfish Allergy Anaphylaxis High 03/12/2023 Patient reported Medications * This document contains information received from the source organization and may not represent a complete record from that organization. hydroCHLOROthia zide (HYDRODiuril) 25 MG tablet Take 25 mg by mouth in the morning. 022 Active albuterol (2.5 MG/3ML) 0.083% nebulizer solution 022 Active betamethasone, augmented, (Diprolene) 0.05 % [...] MIX WITH CERAVE DIRECTED 80 g 1 05/17/2 024 Active ceramides (CeraVe) moisturizing creamIndication s:Venous [...] NOT SWALLOW. 30 each 1 025 Active cholecalciferol (Vitamin D-3) 25 MCG tablet Take 1 tablet (25 mcg) by mouth in the morning. 60 tablet 2 025 Active cholecalciferol (Vitamin D-3) 25 MCG tablet Take 25 mcg by mouth in the morning. 022 2024 Discontinued(R eorder (will not trigger notification to Pharmacy)) traMADol (Ultram) 50 MG tabletIndicatio ns:Lumbago of [...] per day for 4 days. 11 tablet 025 2024 Active Problems Problem Noted [...] in cirrhosis 04/16/2023 Overview (10/06/2024): EGDs via [facility] History of Helicobacter pylori infection 023 Overview (04/16/2023): tx'd 10/2021 via [facility] Cirrhosis of liver without ascites 04/16/2023 Overview (10/06/2024): compensated. thought to be d/t CARTWRIGHT vs. HCV. Follows w/ [facility] and had abd MRI to eval liver lesion 07/2022. 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 11/19/2022 Overview (11/19/2022): MRI 01/01/2022 findings copied into 09/18/22 note for reference Thrombocytopenia 03/20/2018 Trigger finger of both hands 03/20/2018 Neoplasm of liver 11/10/2017 Paroxysmal atrial fibrillation (CMS/HCC) 016 Atherosclerosis of [place] co ronary artery of [place] heart with stable angina pectoris 11/25/2015 Benign essential hypertension 11/25/2015 Chronic hepatitis C (CMS/HCC) 11/25/2015 Moderate persistent asthma 11/25/2015 Resolved Problems Problem Noted Date Diagnosed Date Resolved Date Mild depression 10/07/2024 10/07/2024 Encounters Date Type Department Care Team Description 03/15/2025 Refill [facility] [address] [place] [address] Tom Trujillo ANP 03/12/2025 Refill [facility] [address] [place] [address] oTm Trujillo ANP Moderate persistent asthma without complication 02/17/2025 Telephone [facility] [address] [place] [address] Nichole Lucio RN 02/16/2025 11:15 AM EDT Office Visit [facility] [address] [place] [address] Tom Trujillo ANP Hepatocellular carcinoma (CMS/HCC) (HCC) (Primary Dx); Encounter for immunization; Elevated C-reactive protein (CRP); Pain in finger of right hand; Lumbago of lumbar region with sciatica 02/16/2025 Travel 02/15/2025 Telephone [facility] [address] [place] [address] Tom Trujillo ANP chart prep 02/09/2025 Telephone [facility] [address] [place] [address] Nichole Lucio RN 02/09/2025 Results Follow-Up [facility] [address] [place] [address] Anabela Carlson MD Uric acid 02/06/2025 Results Follow-Up [facility] [address] [place] [address] Anabela Carlson MD Comprehensive Metabolic Panel, CBC auto differential, Sed Rate by Modified Westergren, C-reactive Protein 02/06/2025 Orders Only [facility] [address] [place] [address] Anabela Carlson MD Pain in finger of right hand (Primary Dx) 02/05/2025 1:00 PM EDT Office Visit [facility] [address] [place] [phone] Anabela Carlson MD Pain in finger of right hand (Primary Dx) 02/05/2025 Travel 01/26/2025 Orders Only GENERIC EXTERNAL DATA DEPARTMENT Provider, Generic External Data 01/22/2025 Refill [facility] [address] [place] [address] Harris Casrto MD Moderate persistent asthma without complication (Primary Dx) 01/22/2025 Telephone [facility] [address] [place] [phone] Tom Trujillo ANP Tracheostomy Tube Check 01/20/2025 6:00 PM EDT Office Visit [facility] [address] [address] Tom Trujillo ANP 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ciatica (Primary Dx) 01/20/2025 Travel 01/19/2025 Results Follow-Up [facility] [address] [place] [phone] Marcela Crook MD XR CERVICAL SPINE 3V 01/18/2025 1:45 PM EDT Office Visit [address] [address] Marcela Crook MD Neck pain (Primary Dx); Dietary counseling; Exercise counseling; Class 1 obesity due to excess calories with serious comorbidity and body mass index (BMI) of 31.0 to 31.9 in adult 01/18/2025 Travel 01/18/[address] [place] [address] Tom Trujillo ANP Nurse Triage 01/13/2025 Travel 01/13/2025 Telephone [facility] [address] [facility] [place] [address] Nichole Lucio RN 01/08/2025 Telephone [facility] [address] [facility] [place] [address] Nichole Lucio, MONAE 01/04/2025 Orders Only GENERIC EXTERNAL DATA DEPARTMENT Provider, Generic External Data 12/30/2024 Telephone [facility] [address] [place] [address] Nita Mendoza, attraction worker Question 12/25/2024 Telephone [facility] [address] [place] [address] Connie Felipe RN Medication Question 12/25/2024 Orders Only [address] [address] Tom Trujillo ANP Atherosclerosis of [place] coronary artery of [place] heart with stable angina pectoris ([facility]) (Primary Dx) from Last 3 Months Immunizations [...] 2:00 PM EST Office Visit [facility] [address] [place] [address] Tom Trujillo, ANP [address] [place], [place] [phone] Health Maintenance Due Date Last Done Comments [...] 10/10/2021 Colorectal Cancer Screening 10/10/2024 COVID-19 Vaccine ( - season) 2025 08/16/2020, 07/19/2020 Alcohol/Substance Use [...] hand XR HAND 3+ VIEWS RIGHT STAT 1:51 [...] Blood Count 3.7(L) 4.8 - 10.8 X10*3/uL [facility] Red Blood Count 4.09(L) 4.20 - 5.50 X10*6/uL [facility] Hemoglobin 12.1 12.0 - 16.0 g/dl [facility] Hematocrit 37.1 37.0 - 47.0 % [facility] Mean Corpuscular Volume 90.7 80.0 - 98.0 fL [facility] Mean Corpuscular Hemoglobin 29.6 27.0 - 33.0 pg [facility] Mean Corpuscular HGB Conc 32.6 31.0 - 35.0 g/dl [facility] Red Cell Distribution Width 15.7 11.0 - 16.0 % [facility] Platelet Count 125(L) 160 - 400 X10*3/uL [facility] Mean Platelet Volume 9.7 9.4 - 12.3 fL [facility] Neutrophils Percent Auto 71.5 45 - 73 % [facility] Imm Gran Pct Auto 0.3 0.0 - 0.4 % [facility] Lymphocytes Percent Auto 18.7(L) 20 - 40 % [facility] Monocytes Percent Auto 8.4 2 - 11 % [facility] Eosinophils Percent Auto 0.8 0 - 4 % [facility] Basophils Percent Auto 0.3 0 - 2 % [facility] NRBC Pct Auto 0.0 0.0 - 0.2 /100WBC [facility] Neutrophils Absolute Auto 2.6 2.0 - 8.3 x10*3/uL [facility] Imm Gran Abs Auto 0.01 0.00 - 0.03 X10*3/uL [facility] Lymphocytes Absolute Auto 0.7(L) 1.2 - 4.9 X10*3/uL [facility] Monocytes Absolute Auto 0.3 0.1 - 1.2 X10*3/uL [facility] Eosinophils Absolute Auto 0.0 0.0 - 0.4 X10*3/uL [facility] Basophils Absolute Auto 0.0 0.0 - 0.2 X10*3/uL [facility] NRBC Abs Auto 0.000 0.0 - 0.012 X10*3/uL [facility] Blood Venous blood specimen / Unknown 03/15/2025 1:34 PM EST 03/15/2025 1:34 PM EST Tom [facility] LAB BLOOD ORDERABLES Final Resul t Performing Organization Address [facility] Co de Phone Number [facility] [address] [place] [address] [phone] * (ABNORMAL) Sed Rate by Modified Westergren (03/15/2025 1:34 PM EST) Only the most recent of2 resultswithin the time period is included. Erythrocyte Sedimentation Rate 60(H) 0 - 20 MM/HR [facility] Comment:Patients with polycy themia and many hemoglobin abnormalitiesmay have depressed sed rates whereas patients with anemiamay have elevated sed rates. Blood Venous blood specimen / Unknown 03/15/2025 1:34 PM EST 03/15/2025 1:34 PM EST Tom Trujillo [facility] LAB BLOOD ORDERABLES Final Resul t Performing Organization Address [facility] de Phone Number [facility] [address] [place] [phone] * (ABNORMAL) C-reactive Protein (03/15/2025 1:34 PM EST) Only the most recent of2 resultswithin the time period is included. C Reactive Protein 1.64(H) < or = 0.50 mg/dL [facility] Blood Venous blood specimen / Unknown 03/15/2025 1:34 PM EST 03/15/2025 1:34 PM EST Tom Trujillo [facility] LAB BLOOD ORDERABLES Final Resul t Performing Organization Address [facility] Co de Phone Number [facility] [address] [place] [address] [phone] * (ABNORMAL) Uric acid (03/15/2025 1:34 PM EST) Only the most recent of2 resultswithin the time period is included. Uric Acid 6.8(H) 2.4 - 5.7 mg/dL [facility] Blood Venous blood specimen / Unknown 03/15/2025 1:34 PM EST 03/15/2025 1:34 PM EST [facility] LAB BLOOD ORDERABLES Final Resul t [facility] [address] [place] [address] [phone] * (ABNORMAL) Comprehensive Metabolic Panel (02/05/2025 2:16 PM EDT) Only the most recent of2 resultswithin the time period is included. Sodium 139 135 - 145 mmol/L [facility] Potassium 3.6 3.3 - 5.1 mmol/L [facility] Chloride 99 96 - 108 mmol/L [facility] Carbon Dioxide 33(H) 22 - 29 mmol/L [facility] Anion Gap 11(L) 12 - 20 [facility] Urea Nitrogen (BUN) 15 9 - 16 mg/dL [facility] Creatinine, Serum 0.74 0.5 - 1.4 mg/dL [facility] Estimated Glomerular Filt Rate >60 [facility] Comment:Chronic Kidney Disea se: Estimated GFR < 60 mL/min/1.38i5Koubls Kidney Disease: Estimated GFR < 15 mL/min/1.73m2 Glucose 87 60 - 115 mg/dL [facility] Calcium 10.0 8.4 - 10.2 mg/dL [facility] Bilirubin, Total 0.9 0.0 - 1.0 mg/dL [facility] Aspartate Amino Transferase 43(H) 5 - 31 U/L [facility] Alanine Aminotransferase 54(H) 0 - 31 U/L [facility] Total Protein 7.6 6.5 - 8.0 g/dL [facility] Albumin Level 3.6 3.5 - 5.0 g/dL [facility] Alkaline Phosphatase 65 39 - 117 U/L [facility] Blood Venous blood specimen / Unknown 02/05/2025 2:16 PM EDT 02/05/2025 3:57 PM EDT us Anabela Carlson MD LAB BLOOD ORDERABLES Final Re sult [facility] [address] [place] [phone] [phone] * XR Hand 3+ Views Right (02/05/2025 1:51 PM EDT) Anatomical Region Laterality Modality Upper Extremities, Hand Right Radiogra phic Imaging 02/05/2025 1:51 PM EDT Narrative 02/05/2025 2:05 PM EDT [address] [address] XRay Report Signed Patient: Walt Rajan MR #: [id number] : 1955 Acct:[id number] Age/Sex: 69 / F ADM Date: 02/05/25 Loc: .HHCX Attending Dr: Anabela Carlson MD Ordering Physician: Anabela Carlson MD Date of Service: 02/05/25 Procedure(s): XR hand RT min 3V Accession Number(s): [id number] cc: Anabela Carlson MD Reason for Exam: [...] by Atul Mejía MD in OV> 02/05/25 140 DD/ 50 TD/TT: 02/05/251357 Peer Counselor: Procedure Note Donotuseinterpreter, Image - 02/05/[address] [address] XRay Report Signed Patient: Sid RajanR #: [id number] : 1955cct:[id number] Age/Sex: 69 / FADM Date: 02/05/25 Loc: HO.HHCX Attending Dr: Anabela Carlson MD Ordering Physician: Anabela Carlson MD Date of Service: 02/05/25 Procedure(s): XR hand RT min 3V Accession Number(s): [id number] cc: Anabela Carlson MD Reason for Exam: [...] Mejía MD in OV> 02/05/25 1402 DD/ 50 TD/TT: 02/05/251357 Peer Counselor: us Anabela Carlson MD IMG XR PROCEDURES Final Resul t * Influenza A B2 ID NOW (Kim) (01/26/2025 11:38 AM EDT) IDNOW SERIAL# [id number] [facility] Influenza A Negative Negative [facility] Influenza B2 Negative Negative [facility] Influenza A B2 Note See Note [facility] Comment:The Kim ID NOW In [...] 8 AM EDT 01/26/2025 11:41 AM EDT Generic External Data Provider LAB MICROBIOLOGY - GENERAL ORDERABLES Final Result Performing Organization Address City/State/[facility] Co de Phone Number [facility] [address] [place] [phone] * COVID-19 ID NOW (KIM) (01/26/2025 11:38 AM EDT) IDNOW SERIAL# [id number] [facility] COVID-19 TEST Negative Negative [facility] COVID-19 NOTE See Note [facility] Comment: Results are for the identification of SARS-CoV2 RNA. TheSARS-CoV2 RNA is generally detectable in respiratory samplesduring the acute phase of infection. Positive results areindicative of the presence of SARS-CoV-2 RNA; clinicalcorrelation with patient history and other diagnosticinformation is necessary to determine patient infectionstatus. Positive results do not rule out bacterial infectionor co- infection with other viruses.Testing facilities within the [facility] and itsterritories are required to report all [...] use by authorized laboratories.Testing performed on the [employer] ID NOW utilizing NAAT. 01/26/2025 11:3 8 AM EDT 01/26/2025 11:41 AM EDT us Generic External Data Provider LAB MOLECULAR MOON GNOSTICS ORDERABLES Final Result Performing Organization Address City/State/[facility] Co de Phone Number [facility] [address] [place] [address] [phone] * CT Cervical Spine w/o Contrast (01/26/2025 11:11 AM EDT) Anatomical Region Laterality Modality Spine, C-spine Computed Tomogra phy 01/26/2025 11:1 1 AM EDT Narrative 01/26/2025 11:51 AM EDT [place] [address] [address] Scan Report Signed Patient: Walt Rajan MR #: [id number] : 1955 Acct:[id number] Age/Sex: 69 / F ADM Date: 01/26/25 Loc: HO.ED Attending Dr: Ordering Physician: Molly Mata Date of Service: 01/26/25 Procedure(s): CT cervical spine wo IV con Accession Number(s): [id number] cc: Molly Mata; TOM TRUJILLO NP Report Number: [id number]: Total DLP = 277.00 mGy-cm Reason for [...] 01/26/25 1148 DD/ 1111 TD/TT: 01/26/25 1134 Peer Counselor: Procedure Note Donotuseinterpreter, Image - 01/26/[address] [address] [address] Scan Report Signed Patient: Aleida RajanJose F #: [id number] : 1955cct:[id number] Age/Sex: 69 / FADM Date: 01/26/25 Loc: HO.ED Attending Dr: Ordering Physician: Molly Mata Date of Service: 01/26/25 Procedure(s): CT cervical spine wo IV con Accession Number(s): [id number] cc: Molly Mata; TOM TRUJILLO NP Report Number: [id number]: Total DLP = 277.00 mGy-cm Reason for [...] 01/26/25 1148 DD/ 1111 TD/TT: 01/26/25 1134 Peer Counselor: [facility] External Provider IMG CT PROCEDURES Edited Result - Final * CT Head w/o Contrast (01/26/2025 11:11 AM EDT) Anatomical Region Laterality Modality Head, Neck Computed Tomogra phy 01/26/2025 11:1 1 AM EDT Narrative 01/26/2025 11:44 AM EDT [address] [address] [address] Scan Report Signed Patient: Walt Rajan MR #: [id number] : 1955 Acct:[id number] Age/Sex: 69 / F ADM Date: 01/26/25 Loc: HO.ED Attending Dr: Ordering Physician: Molly Mata Date of Service: 01/26/25 Procedure(s): CT head/brain wo IV con Accession Number(s): [id number] cc: Molly Mata; TOM TRUJILLO NP Report Number: [id number]: Total DLP = 593.00 mGy-cm Reason for [...] 01/26/25 1139 DD/ 1111 TD/TT: 01/26/25 1134 Peer Counselor: Procedure Note Donotuseinterpreter, Image - 01/26/[address] [place] [address] [address] Scan Report Signed Patient: Kenyon Rajan #: [id number] : 4Acct:[id number] Age/Sex: 69 / FADM Date: 01/26/25 Loc: HO.ED Attending Dr: Ordering Physician: Molly Mata Date of Service: 01/26/25 Procedure(s): CT head/brain wo IV con Accession Number(s): [id number] cc: Molly Mata; TOM TRUJILLO NP Report Number: [id number]: Total DLP = 593.00 mGy-cm Reason for [...] 01/26/25 1139 DD/ 1111 TD/TT: 01/26/25 1134 Peer Counselor: [facility] External Provider IMG CT PROCEDURES Edited Result - Final * XR CERVICAL SPINE 3V (01/18/2025 3:10 PM EDT) Anatomical Region Laterality Modality Abdomen Radiographic Dawn ging 01/18/2025 3:10 PM EDT Narrative 01/18/2025 3:25 PM EDT [facility] [address] [place] [address] XRay Report Signed Patient: Walt Rajan MR #: [id number] : 1955 Acct:[id number] Age/Sex: 69 / F ADM Date: 01/18/25 Loc: HO.PATYX Attending Dr: Marcela Crook MD Ordering Physician: Marcela Crook MD Date of Service: 01/18/25 Procedure(s): XR cervical spine 3V Accession Number(s): [id number] cc: TOM TRUJILLO SONOGRAPHER; Marcela Crook MD Reason for Exam: neck [...] 01/18/25 1522 DD/ 1510 TD/TT: 01/18/25 1513 Peer Counselor: Procedure Note Donotuseinterpreter, Image - 01/18/[address] [address] XRay Report Signed Patient: Kenyon Rajan #: [id number] : 4Acct:[id number] Age/Sex: 69 / FADM Date: 01/18/25 Loc: HO.HHCX Attending Dr: Marcela Crook MD Ordering Physician: Marcela Crook MD Date of Service: 01/18/25 Procedure(s): XR cervical spine 3V Accession Number(s): [id number] cc: TOM TRUJILLO SONOGRAPHER; Marcela Crook MD Reason for Exam: neck [...] 01/18/25 1522 DD/ 1510 TD/TT: 01/18/25 1513 Peer Counselor: us Marcela Crook MD IMG XR PROCEDURES Edited Result - Final * TSH with Reflex to Free T4 (01/04/2025 1:20 PM EDT) TSH reflex Free T4 1.86 0.32 - 4.0 uIU/mL [facility] 01/04/2025 1:20 PM EDT 01/04/2025 4:05 PM EDT us Generic External Data Provider LAB BLOOD ORDERAB LES Final Result [facility] [address] [place] [phone] * Hepatic Function Panel (01/04/2025 1:20 PM EDT) Bilirubin, Direct 0.3 0.0 - 0.5 mg/dL [facility] 01/04/2025 1:2 0 PM EDT 01/04/2025 4:05 PM EDT Generic External Data Provider LAB BLOOD ORDERAB LES Final Result Performing Organization Address [facility]/ZIP Co de Phone Number [facility] [address] [place] [phone] * (ABNORMAL) Lipid Panel, Standard (01/04/2025 1:20 PM EDT) Triglycerides 104 <150 mg/dL [facility] Comment:Desirable Triglyceri de: less than 150 mg/dLBorderline High Triglyceride 150-199 mg/dLHigh Triglyceride: 200-499 mg/dLVery High Triglyceride: greater than or equal to 5OO mg/dL Cholesterol 122 <200 mg/dL [facility] Comment:Desirable Cholestero l: less than 200 mg/dLBorderline High Cholesterol: 200-239 mg/dLHigh Cholesterol: greater than 239 mg/dL LDL Cholesterol Calculated 70 <100 mg/dL [facility] Comment:Desirable LDL: less than 100 mg/dLNear Optimal/Above Optimal LDL: 110- 129 mg/dLBorderline High LDL: 130-159 mg/dLHigh LDL: 160-189 mg/dLVery High LDL: greater than or equal to 190 mg/dL HDL Cholesterol 32(L) >40 mg/dL [facility] Comment:Desirable HDL: great er than 40 mg/dL Note: This HDL assay may give artificially low results in patients with liver disease. 01/04/2025 1:20 PM EDT 01/04/2025 4:05 PM EDT us Generic External Data Provider LAB BLOOD ORDERAB LES Final Result Performing Organization Address City/[facility]/ZIP Co de Phone Number [facility] [address] [place] [phone] * BI Mammogram Screening Tomosynthesis Bilateral (10/26/2024 1:20 PM EDT) Anatomical Region Laterality Modality Breast Bilateral Mammography 10/26/2024 1:20 PM EDT Narrative 11/01/2024 2:28 PM EDT [facility] [address] [place] [address] Mammography Report Signed Patient: Walt Rajan MR #: [id number] : 1955 Acct:[id number] Age/Sex: 69 / F ADM Date: 10/26/24 Loc: HO.MAMMO Attending Dr: Tom Trujillo NP Ordering Physician: TOM TRUJILLO NP Results: 1Negative Date of Service: 10/26/24 Follow Up: 1 Year From Orig ina Mammogram Procedure(s): MM tomosynthesis screening BI Accession Number(s): [id number] cc: TOM TRUJILLO NP EXAMINATION: MM SCREENING [...] 11/01/24 1425 DD/ 1320 TD/TT: 10/26/24 1338 Peer Counselor: Procedure Note Donotuseinterpreter, Image - [facility] [address] [place] [address] Mammography Report Signed Patient: Kenyon Rajan #: [id number] : 4Acct:[id number] Age/Sex: 69 / FADM Date: 10/26/24 Loc: HO.MAMMO Attending Dr: Tom Trujillo NP Ordering Physician: TOM TRUJILLO NPResults: 1Negative Date of Service: 10/26/24Follow Up: 1 Year From Orig inal Mammogram Procedure(s): MM tomosynthesis screening BI Accession Number(s): [id number] cc: TOM TRUJILLO NP EXAMINATION: MM SCREENING [...] 11/01/24 1425 DD/ 1320 TD/TT: 10/26/24 1338 Peer Counselor: Tom Trujillo ANP IMG BI PROCEDURES Edited Result - Final * Hm Colonoscopy (10/10/2021) Colonoscopy Normal Normal us Historical Provider HEALTH MAINTENANCE Final Result from Last 3 Months or Most Recently Relevant to Health Maintenance Insurance [facility] STANDARD MEDICARE Care Teams Pricer Bagger Relationship Specialty Start Date End Date Tom Trujillo ANP [address] [place] [address] PCP - General Family Medicine 09/29/19 Everett Rojas MD [address] [place] [address] Drive 3rd [place] [address] Cardiology 04/21/24
--- OUTSIDE RECORDS SUMMARY | 2025-03-16 11:40 | XMS_ITS | Encounter Summary ---
Author Organization [facility] Address [address] [place] [address] Care Team Providers Care Personal Lines Appraiser Name Role Phone Darius Tamayo MD Primary Care Provider [phone] Encounter Details Date Type Department Care Team (Late st Contact Info) Description 03/02/2025 Results Follow-Up [facility] [address] [place] [phone] Sabrina Dahl RN Social History Tobacco Use [...] Info) Description 03/18/2025 2:00 PM EST Follow-Up [facility] [address] [place] [phone] Lauren Hancock MD [address] [place] [phone] 04/02/2025 10:00 AM EST Office Visit [facility] 4th floor Cardiology Medicine [address] [place] [phone] Board Filler: James Reynoso MD [address] [place] [phone] documented as of this encounter Visit Diagnoses Not on filedocumented in this encounter Care Teams Personal Lines Appraiser Relationship Specialty Start Date End Date Darius Tamayo MD [address] [place] [phone] PCP - General Gastroenterology 12/22/24 documented as of this encounter
--- OUTSIDE RECORDS SUMMARY | 2025-03-16 11:40 | XMS_ITS | Encounter Summary ---
Author Organization [employer] Address [address] [place] [address] [address] [place] [address] Care Team Providers Care [employer] Associate Name Role Phone Sudha Mitchell Primary Care Provider Everett Rojas MD Unavailable [phone] Reason for Visit * Reason Comments Med Refill Encounter Details Date Type Department Care Team (Late Contact Info) Description 05/02/2022 Refill [facility] [address] [place], [place] [phone] Sudha Mitchell ANP [address] [place] [address] Cervicalgia Social History Tobacco Use Types Packs/Day [...] Upcoming Encounters Date Type Department Care Team ([facility] Contact Info) Description 03/22/2025 2:00 PM EST Office Visit [facility] MEDIC[facility] [address] [place] [address] Sudha Mitchell ANP [address] [place] [address] documented as of this encounter Visit Diagnoses Diagnosis Cervicalgia documented in this encounter Care Teams [employer] Associate Relationship Specialty Start Date End Date Sudha Mitchell ANP [address] [place] [id number] PCP - General Family Medicine 09/29/19 Everett Rojas MD [address] [place] [address] Drive [address]rd Floor [place] [address] Cardiology 04/21/24 documented as of this encounter
--- OUTSIDE RECORDS SUMMARY | 2025-03-16 11:40 | XMS_ITS | Encounter Summary ---
Author Organization [employer] Address [address] [place] [address] [address] [place] [address] Care Team Providers Care Dentist Name Role Phone Sudha Mitchell Primary Care Provider Everett Rojas MD Unavailable Reason for Visit * Reason Comments Med Refill Encounter Details Date Type Department Care Team (Late st Contact Info) Description 06/22/2022 Refill [facility] MED[facility]INE [address] [place] [id number] Sudha Mitchell ANP [address] [place] [address] Lumbago of lumbar region with sciatica Social [...] Description 03/22/2025 2:00 PM EST Office Visit [facility] [address] [place] [phone] Sudha Mitchell ANP [address] [place] [address] documented as of this encounter Visit Diagnoses Diagnosis Lumbago of lumbar region with sciatica documented in this encounter Care Teams Dentist Relationship Specialty Start Date End Date Sudha Mitchell ANP [address] [place] [phone] PCP - General Family Medicine 09/29/19 Everett Rojas MD [address] [place] [address] 3rd [place] [address] Cardiology 04/21/24 documented as of this encounter
--- OUTSIDE RECORDS SUMMARY | 2025-03-16 11:41 | XMS_ITS ---
[employer] [address] 3rd Floor, [place] [address], * (ABNORMAL) Cystatin C with Glomerular Filtration Rate, Estimated (eGFR) (12/22/2024 2:14 PM EDT) Cystatin C 1.58(H) 0.52 - 1.10 mg/L 12/24/2024 12:17 PM EDT [facility] TUCKERIceni TechnologyRebecca (FISHER) eGFR Non- 38(L) >=60 NA 12/24/2024 12:17 PM EDT JAZIO TUCKERIceni TechnologyRebecca (FISHER) Comment: REFERENCE RANGE:>=60 mL/min/1.73mE2 Blood Structure of peripheral vein / Unknown Venipuncture / Unknown 12/22/2024 2:14 PM EDT 12/22/2024 2:53 PM EDT Narrative BALTA DA SILVA (FISHER) - 12/24/2024 12:17 PM EDT [facility] Received Date: Lauren Hancock MD LAB BLOOD ORDERABLES Fin al Result BALTA [place]) [address] [place], [place] , [place] * (ABNORMAL) Hepatocellular Carcinoma Panel (Includes AFP, AFP-L3 & DCP) (12/22/2024 2:14 PM EDT) AFP 31.3(H) 1.6 - 4.5 ng/mL 12/29/2024 6:23 PM EDT [facility] [employer] [facility] AFP-L3 3.9 0.5 - 9.9 % 12/29/2024 6:23 PM EDT [facility] [facility] Comment: The micro-total analysis system ([facility]) employs microchip capillary electrophoresis to quantitatively measure AFP and AFP-L3% by immunochemical techniques. The assay principle involves DNA-coupled antibodies and dye labeled antibodies, which react with proteins in liquid phase within the microchannels. Both analytes are quantified using laser-induced fluorescence. Instrument and associated reagents are supplied by [employer] [place], [place], [place]. Patients with elevated AFP-L3% values (>=10%) [...] can potentially cause an anomalous result. The BioCatchS System has been formulated to minimize the [...] or kits cannot be used interchangeably. DCP (Ftg-Ndpbs-Rehfybn- Prothrombin) 0.2 <7.5 ng/mL 12/29/2024 6:23 PM EDT [facility] [employer] [facility] Comment: The [facility] DCP Immunological Test System is a clinical device used to quantitatively measure, by immunochemical technique, qlu-vixoe-zwmiajl-prothrombin (DCP) in serum. The assay uses DNA-coupled antibodies and dye labeled antibodies, which react with proteins in liquid phase within the microchannels. Both analytes are quantified using laser-induced fluorescence. Instrument and associated reagents are supplied by [employer] [place], [place], [place]. DCP levels increase in [...] interference potentially causing an anomalous result. The [facility] DCP has been formulated to minimize the [...] EDT 12/22/2024 2:52 PM EDT Narrative BALTA DMITRIYMIRIAM - 12/29/2024 6:23 PM EDT [facility] Received Date: Lauren Hancock MD LAB BLOOD ORDERABLES Fin al Result BALTA MENEZES [address] [facility] 3rd Floor, [place] [address], [employer]/[facility] [address] [place] [address], [place] [phone] * Phosphatidylethanol (PEth) (12/22/2024 2:14 PM EDT) [...] LABORATORY Comment: Authorized individuals can access the YaData Enhanced Report with an [employer] Connect account using the following link. Your local lab can assist you in obtaining the patient report if you don't have a Connect account. [email or web address] PEth Interpretation See Comment 12/11 2:50 PM [...] developed and its performance characteristics determined by [employer]. It has not been cleared or approved by the U.S. Food and Drug Administration. This test was performed in a CLIA-certified laboratory and is intended for clinical purposes. Performed By: [employer] [address] [place] [address] [employer] Manager: Dennis Landry MD, PhD CLIA Number: [id number] Blood Structure of peripheral vein / Unknown Venipuncture / Unknown 12/22/2024 2:14 PM EDT 12/22/2024 2:51 PM EDT us Lauren Hancock MD LAB BLOOD ORDERABLES [facility] [place] [address], * Ohvwy-9-Rbdgcttqkvj (AAT) Phenotype (12/22/2024 2:14 PM EDT) Alpha 1 Antitrypsin Phenotype SEE NOTE 12/28/2024 6:17 PM EDT [employer] Comment: THIS PATIENT'S ZKXOT-7-TLAMBEFRAVC PHENOTYPE IS PI*MM. 90% of normal individuals have the MM phenotype, with normal quantitative AAT levels. Many phenotypic patterns have been described, including deficiency states with F, S, Z, or other alleles. As a general estimation, compared to M allele of 100% of normal M-4-Kdvtvkbdgha protein, the S allele produces approximately 60% and the Z allele 20%. For example, an MS phenotype would have about 80% of normal G-6-Qwadtnirael protein level, a 50% contribution from the M allele and 30% from the S allele. A ZZ phenotype would have about 20% of normal levels, a 10% contribution from each Z gene. The F allele has normal S-1-Tokmhbenbxu levels, but the kinetics of elastase inhibition [...] PM EDT 12/22/2024 2:51 PM EDT Narrative [facility] 12/28/2024 6:17 PM EDT [facility] Received Date:[id number] Lauren Hancock MD LAB BLOOD ORDERABLES Fin al Result BALTA MENEZES [address] [facility] 3rd Floor, [place] [address], [place] [phone] [employer]/[facility] [id number] [place] [address], [place] [phone] * MMR Panel, IgG (12/22/2024 2:14 PM EDT) Pathologist [facility] Measles Antibody (IgG), Immune Status >300.00 AU/mL 12/23/2024 5:57 AM EDT [employer] [facility] Comment: AU/mL Interpretation ----- <13.50 Not consistent with immunity 13.50-16.49 Equivocal >16.49 Consistent with immunity The presence of measles IgG suggests immunization or past or current infection with measles virus. For additional information, please refer to http://education.Naytev/faq/BSX166 (This link is being provided for informational/ educational purposes only.) Mumps Antibody (IgG), Immune Status >300.00 AU/mL 12/23/2024 5:57 AM EDT [facility] Comment: AU/mL Interpretation ------- <9.00 Not consistent with immunity 9.00-10.99 Equivocal >10.99 Consistent with immunity The presence of mumps IgG antibody suggests immunization or past or current infection with mumps virus. Rubella Antibody (IgG), Immune Status 5.07 Index 12/23/2024 5:57 AM EDT [facility] Comment: Index Interpretation ----- <0.90 Not consistent with immunity 0.90-0.99 Equivocal > or = 1.00 Consistent with immunity The presence of rubella IgG antibody suggests immunization or past or current infection with rubella virus. Blood Structure of peripheral vein / Unknown Venipuncture / Unknown 12/22/2024 2:14 PM EDT 12/22/2024 2:52 PM EDT Narrative [facility] - 12/23/2024 5:57 AM EDT [facility] Received Date: Lauren Hancock MD LAB BLOOD ORDERABLES Fin al Result [facility] [address] [facility] 3rd Floor, [place] [address], [employer] [facility] 200 [facility] 3rd Floor, [place] [address], * (ABNORMAL) Herpes Simplex Virus 1&2, IgG (12/22/2024 2:14 PM EDT) [facility] HSV 1 IgG Type Specific Ab 46.90(H) index 12/23/2024 3:42 AM EDT [facility] HSV 2 IgG Type Specific Ab <0.90 index 12/23/2024 3:42 AM EDT [facility] Comment: Index Interpretation ----- <0.90 Negative [...] screening. For additional information, please refer to http://education.Naytev/faq/VPQ569 (This link is being provided for informational/ educational purposes only.) Blood Structure of peripheral vein / Unknown Venipuncture / Unknown 12/22/2024 2:14 PM EDT 12/22/2024 2:50 PM EDT [facility] 12/23/2024 3:42 AM EDT [facility] Received Date: Lauren Hancock MD LAB BLOOD ORDERABLES Fin al Result [facility] [address], [place] [address], [employer] [address], [place] [address], * (ABNORMAL) Protein Electrophoresis w/Reflex to Immunofixation, Serum (12/22/2024 2:14 PM EDT) Pathologist [facility] Protein, Total 7.6 6.1 - 8.1 g/dL 12/23/2024 10:54 PM EDT [employer] [facility] Albumin 3.8 3.8 - 4.8 g/dL 12/23/2024 10:54 PM EDT [employer] [facility] Alpha 1 Globulin 0.4(H) 0.2 - 0.3 g/dL 12/23/2024 10:54 PM EDT [employer] [facility] Alpha 2 Globulin 0.9 0.5 - 0.9 g/dL 12/23/2024 10:54 PM EDT [employer] [facility] Beta 1 Globulin 0.5 0.4 - 0.6 g/dL 12/23/2024 10:54 PM EDT [employer] [facility] Beta 2 Globulin 0.5 0.2 - 0.5 g/dL 12/23/2024 10:54 PM EDT [employer] [facility] Gamma Globulin 1.5 0.8 - 1.7 g/dL 12/23/2024 10:54 PM EDT [employer] [facility] Interpretation See Comments 12/23/2024 10:54 PM EDT [employer] [facility] Comment: Alpha-1 globulin increase noted. Blood Structure of peripheral vein / Unknown Venipuncture / Unknown 12/22/2024 2:14 PM EDT 12/22/2024 2:50 PM EDT Narrative [facility] - 12/23/2024 10:54 PM EDT [facility] Received Date:[id number] us Lauren Hancock MD LAB BLOOD ORDERABLES Fin al Result [facility] [address], [place] [address], [employer] [facility] [address], [place] [address], [place] [phone] * RPR (Diagnosis) w/Reflex to Titer & TPPA Confirm (12/22/2024 2:14 PM EDT) RPR W/Refl Titer NON-REACT DEREJE NON-REACT DEREJE 12/23/2024 11:34 AM EDT [employer] [facility] Blood Structure of peripheral vein / Unknown Venipuncture / Unknown 12/22/2024 2:14 PM EDT 12/22/2024 2:51 PM EDT Narrative BALTA MENEZES - 12/23/2024 11:34 AM EDT [facility] Received Date:[id number] us Lauren Hancock MD LAB BLOOD ORDERABLES Fin al Result Performing Organization Address City/[facility]/ZIP Co de Phone Number [facility] [address], [place] [address], [place] [phone] [employer] [facility] [address], [place] [address], [place] [phone] * (ABNORMAL) Iron Saturation (12/22/2024 2:14 PM EDT) Iron Saturation 19(L) 20 - 50 % 3:36 PM EDT [facility] Iron 59 30 - 160 ug/dL 12/22/2024 3:36 PM EDT [facility] Transferrin 252 200 - 360 mg/dL 12/22/2024 3:36 PM EDT [facility] Total Iron Binding Capacity 315 255 - 450 ug/dL 12/22/2024 3:36 PM EDT [facility] Blood Structure of peripheral vein / Unknown Venipuncture / Unknown 12/22/2024 2:14 PM EDT 12/22/2024 2:51 PM EDT Lauren Hancock MD LAB BLOOD ORDERABLES Fin al Result [facility] [address] [place] [address], * TSH Reflex Free T4 (12/22/2024 2:14 PM EDT) TSH 3.360 0.280 - 3.890 uIU/mL 12/22/2024 3:36 PM EDT [facility] Comment: Females: 1st trimester 0.150-4.000 IU/mL 2nd trimester 0.310-4.170 IU/mL 3rd trimester 0.380-4.150 IU/mL Blood Structure of peripheral vein / Unknown Venipuncture / Unknown 12/22/2024 2:14 PM EDT 12/22/2024 2:51 PM EDT Lauren Hancock MD LAB BLOOD ORDERABLES Fin al Result [facility] [address] [place] [address], [place] * QuantiFERON-TB Gold Plus, 1 Tube (12/22/2024 2:14 PM EDT) Pathologist [facility] QuantiFERON-TB Gold Plus NEGATIVE NEGATIVE 12/24/2024 3:33 PM EDT [facility] Comment: Negative test result. M. tuberculosis complex infection unlikely. NIL 0.02 IU/mL 12/24/2024 3:33 PM EDT [employer] [facility] Mitogen-NIL 6.90 IU/mL 12/24/2024 3:33 PM EDT [employer] [facility] TB1-NIL 0.00 IU/mL 12/24/2024 3:33 PM EDT [employer] [facility] TB2-NIL 0.00 IU/mL 12/24/2024 3:33 PM EDT [employer] [facility] Comment: The Nil tube value reflects [...] T-lymphocytes. For additional information, please refer to https://education.Locappy.Narus/faq/ANB001 (This link is being provided for informational/ educational purposes only.) Blood Structure of peripheral vein / Unknown Venipuncture / Unknown 12/22/2024 2:14 PM EDT 12/22/2024 2:42 PM EDT Narrative [facility] [place] - 12/24/2024 3:33 PM EDT [facility] Received Date: Lauren Hancock MD LAB BLOOD ORDERABLES Fin al Result BALTA PIGEON [address] [facility] 3rd Floor, [place] [address], [place] [phone] [employer] [facility] 200 [facility] 3rd Floor, [place] [address], [place] [phone] * (ABNORMAL) CBC Auto Differential (12/22/2024 2:14 PM EDT) WBC 4.9 3.8 - 10.8 10*3/uL 12/22/2024 3:21 PM EDT [place] [facility] RBC 4.19 3.80 - 5.10 10*6/uL 12/22/2024 3:21 PM EDT [place] [facility] Hemoglobin 12.1 11.7 - 15.5 g/dL 12/22/2024 3:21 PM EDT [facility] Hematocrit 37.6 35.0 - 45.0 % 12/22/2024 3:21 PM EDT [place] [facility] MCV 89.7 80.0 - 100.0 fL 12/22/2024 3:21 PM EDT [place] [facility] MCH 28.9 27.0 - 33.0 pg 12/22/2024 3:21 PM EDT [place] [facility] MCHC 32.2 32.0 - 36.0 g/dL 12/22/2024 3:21 PM EDT [place] [facility] RDW 14.8 11.0 - 15.0 % 12/22/2024 3:21 PM EDT [place] [facility] Platelets 113(L) 140 - 400 10*3/uL 12/22/2024 3:21 PM EDT [place] [facility] MPV 12/22/2024 3:21 PM EDT [facility] Comment:Test not performed. Neutrophil % 68.8 % 12/22/2024 3:21 PM EDT [place] [facility] Immature Grans % 0.2 0.0 - 0.9 % 12/22/2024 3:21 PM EDT [place] [facility] Lymphocyte % 18.9 % 12/22/2024 3:21 PM EDT [place] [facility] Monocyte % 8.8 % 12/22/2024 3:21 PM EDT [place] [facility] [employer] [facility] Eosinophil % 2.9 % 12/22/2024 3:21 PM EDT [place] [facility] Basophil % 0.4 % 12/22/2024 3:21 PM EDT [place] [facility] [employer] [facility] Neutrophil # 3.36 1.50 - 7.80 10*3/uL 12/22/2024 3:21 PM EDT [place] [facility] [employer] [facility] Immature Grans # <0.03 <=0.03 10*3/uL 12/22/2024 3:21 PM EDT [place] [facility] Lymphocyte # 0.90 0.85 - 3.90 10*3/uL 12/22/2024 3:21 PM EDT [place] [facility] Monocyte # 0.40 0.20 - 0.95 10*3/uL 12/22/2024 3:21 PM EDT [place] [facility] Eosinophil # 0.10 0.02 - 0.50 10*3/uL 12/22/2024 3:21 PM EDT [facility] Basophil # <0.03 0.00 - 0.20 10*3/uL 12/22/2024 3:21 PM EDT [facility] nRBC % 0.0 /100 WBCs 12/22/2024 3:21 PM EDT [place] [facility] [employer] [facility] nRBC # <0.01 <0.01 10*3/uL 12/22/2024 3:21 PM EDT [facility] Blood Structure of peripheral vein / Unknown Venipuncture / Unknown 12/22/2024 2:14 PM EDT 12/22/2024 2:53 PM EDT us Lauren Hancock MD LAB BLOOD ORDERABLES Fin al Result [facility] [address] [place] [address], [place] * Smooth Muscle Antibody Screen w/Reflex to Titer (12/22/2024 2:14 PM EDT) Smooth Muscle AB Screen NEGATIVE NEGATIVE 12/25/2024 12:24 PM EDT [employer] [facility] Blood Structure of peripheral vein / Unknown Venipuncture / Unknown 12/22/2024 2:14 PM EDT 12/22/2024 2:51 PM EDT Narrative [facility] 12/25/2024 12:24 PM EDT [facility] Received Date:[id number] us Lauren Hancock MD LAB BLOOD ORDERABLES Fin al Result Performing Organization Address City/[facility] Co de Phone Number [facility] [address] [facility] 3rd Floor, [place] [address], [place] [phone] [employer] [address], [place] [address], [place] [phone] * (ABNORMAL) Hepatitis C Antibody w/Reflex to PCR (12/22/2024 2:14 PM EDT) Hepatitis C Antibody REACTIVE( A) NON-REACT DEREJE 12/22/2024 10:35 PM EDT [facility] Comment: Based on this result, the sample will be tested for HCV RNA by a Nucleic Acid Amplification Test (NAAT) to determine if the patient has a current active infection. Blood Structure of peripheral vein / Unknown Venipuncture / Unknown 12/22/2024 2:14 PM EDT 12/22/2024 2:51 PM EDT Srikanth MENEZES - 12/22/2024 10:35 PM EDT [facility] Received Date:[id number] us Lauren Hancock MD LAB BLOOD ORDERABLES Fin al Result Performing Organization Address City/[facility]/ZIP Co de Phone Number BALTA MENEZES [address] [facility] [address] [facility], [place] [address], [place] [phone] [facility] [address], [place] [address], [place] [phone] * (ABNORMAL) Hepatitis A Antibody, Total (12/22/2024 2:14 PM EDT) Hepatitis A Ab, Total REACTIVE( A) NON-REACT DEREJE 12/22/2024 10:28 PM EDT [facility] Comment: For additional information, please refer to http://education.[employer]/faq/IGS460 (This link is being provided for informational/ educational purposes only.) Blood Structure of peripheral vein / Unknown Venipuncture / Unknown 12/22/2024 2:14 PM EDT 12/22/2024 2:51 PM EDT Srikanth MENEZES - 12/22/2024 10:28 PM EDT [facility] Received Date:[id number] us Lauren Hancock MD LAB BLOOD ORDERABLES Fin al Result Performing Organization Address City/[facility]/ZIP Co de Phone Number BALTA MENEZES [address], [place] [address], [place] [phone] [employer] [facility] [address], [place] [address], [place] [phone] * STEPHON Screen, Reflex to Titer, IFA (12/22/2024 2:14 PM EDT) STEPHON Screen, IFA NEGATIVE NEGATIVE 10:48 AM EDT [facility] Comment: STEPHON IFA is a first [...] AC-0: Negative International Consensus on STEPHON Patterns (https://doi.org/10.1515/vdrh-4386-2083) For additional information, please refer to http://education.Naytev/faq/XZJ264 (This link is being provided for informational/ educational purposes only.) Blood Structure of peripheral vein / Unknown Venipuncture / Unknown 12/22/2024 2:14 PM EDT 12/22/2024 2:52 PM EDT Srikanth BALTA [place] - 12/24/2024 10:48 AM EDT [facility] Received Date:[id number] us Lauren Hancock MD LAB BLOOD ORDERABLES Fin al Result Performing Organization Address City/[facility]/ZIP Co de Phone Number [address] [facility], [place] [address], [employer] [address], [place] [address], [place] [phone] * Ceruloplasmin (12/22/2024 2:14 PM EDT) Ceruloplasmin 39 14 - 48 mg/dL 12/23/2024 2:32 AM EDT [facility] Blood Structure of peripheral vein / Unknown Venipuncture / Unknown 12/22/2024 2:14 PM EDT 12/22/2024 2:50 PM EDT [facility]rikanth [facility] - 12/23/2024 2:32 AM EDT [facility] Received Date:[id number] us Lauren Hancock MD LAB BLOOD ORDERABLES Fin al Result BALTA MENEZES [address] [facility] 3rd Floor, [place] [address], [place] [phone] [employer] [facility] 200 [facility] 3rd Floor, [address] [facility] [place] [address], [place] [phone] * (ABNORMAL) Zinc (12/22/2024 2:14 PM EDT) Zinc 54(L) 60 - 130 mcg/dL 12/24/2024 7:44 PM EDT BALTA GORDONRebecca (FISHER) Comment: This test was developed and its analytical performance characteristics have been determined by [employer] [place], [place]. It has not been cleared or approved by the U.S. Food and Drug Administration. This assay has been validated pursuant to the CLIA regulations and is used for clinical purposes. Blood Structure of peripheral vein / Unknown Venipuncture / Unknown 12/22/2024 2:14 PM EDT 12/22/2024 2:50 PM EDT Narrative BALTA AVINASH (FISHER) - 12/24/2024 7:44 PM EDT [facility] Received Date: Lauren Hancock MD LAB BLOOD ORDERABLES Fin al Result BALTA [place]ARDONA) [address] [place] [address], [place] * (ABNORMAL) Vitamin A (Retinol) (12/22/2024 2:14 PM EDT) Vitamin A (Retinol) 29(L) 38 - 98 mcg/dL 12/24/2024 6:46 PM EDT BALTA GORDONRebecca (FISHER) Comment: Vitamin supplementation within 24 hours prior to blood draw may affect the accuracy of the results. This test was developed and its analytical performance characteristics have been determined by [employer] [place], [place]. It has not been cleared or approved by the U.S. Food and Drug Administration. This assay has been validated pursuant to the CLIA regulations and is used for clinical purposes. Blood Structure of peripheral vein / Unknown Venipuncture / Unknown 12/22/2024 2:14 PM EDT 12/22/2024 2:46 PM EDT Srikanth DA SILVA (NICHOLS) - 12/24/2024 6:46 PM EDT [facility] Received Date:[id number] Lauren Hancock MD LAB BLOOD ORDERABLES Fin al Result Performing Organization Address City/[facility] Co de Phone Number BALTA CARDONA) [address] [place], [place] , [place] * (ABNORMAL) [place] Virus VCA, IgG (12/22/2024 2:14 PM EDT) Pathologist [facility] EBV Viral Capsid Ag Ab (IGG) 652.00(H) U/mL 12/23/2024 3:42 AM EDT [facility] Comment: U/mL Interpretation ---- <18.00 Negative 18.00-21.99 Equivocal >21.99 Positive Blood Structure of peripheral vein / Unknown Venipuncture / Unknown 12/22/2024 2:14 PM EDT 12/22/2024 2:50 PM EDT Srikanth GIFFORD [place] - 12/23/2024 3:42 AM EDT [facility] Received Date:[id number] Lauren Hancock MD LAB BLOOD ORDERABLES Fin al Result Performing Organization Address [facility] de Phone Number [facility]TA [place] [address] [facility] 3rd Floor, [place] [address], [employer] [facility] 200 [facility] 3rd Floor, [place] [address], * Hepatitis B Core Antibody, Total (12/22/2024 2:14 PM EDT) Pathologist [facility] Hepatitis B Core Ab Total NON-REACT DEREJE NON-REACT DEREJE 12/22/2024 7:44 PM EDT [facility] Comment: For additional information, please refer to http://education.[employer] Media/faq/ZUU614 (This link is being provided for informational/ educational purposes only.) Blood Structure of peripheral vein / Unknown Venipuncture / Unknown 12/22/2024 2:14 PM EDT 12/22/2024 2:50 PM EDT Narrative BALTA MENEZES - 12/22/2024 7:44 PM EDT [facility] Received Date: Lauren Hancock MD LAB BLOOD ORDERABLES [facility] al Result [facility] [address] [facility] 3rd Floor, [place] [address], [employer] [facility] 200 [facility] 3rd Floor, [place] [address], * Hepatitis C RNA, Quantitative, PCR (12/22/2024 2:14 PM EDT) [facility] Hcv RNA, Quantitative Real Time PCR <15 NOT DETECTED NOT DETECTED IU/mL 12/23/2024 1:16 PM EDT [employer] [facility] Hepatitis C Quantitative PCR Log IU/mL <1.18 NOT DETECTED NOT DETECTED Log IU/mL 12/23/2024 1:16 PM EDT [employer] [facility] Comment: HCV RNA is not detected. [...] more information on this test, go to: http://education.Sher[employer]/faq/TAI54p2 (This link is being provided for informational/ educational purposes only.) This assay is intended for use as an aid in the diagnosis of HCV infection and the management of HCV infected patients undergoing anti-viral therapy. Blood Structure of peripheral vein / Unknown Venipuncture / Unknown 12/22/2024 2:14 PM EDT 12/22/2024 2:51 PM EDT Narrative BALTA MENEZES - 12/23/2024 1:16 PM EDT [facility] Received Date: us Lauren Hancock MD LAB BLOOD ORDERABLES Fin al Result BALTA MENEZES 200 [facility] [address]rd [facility], [place] [address], [place] [phone] [employer] [facility] [address], [place] [address], [place] [phone] * Vitamin D, 25-Hydroxy, Total, Immunoassay (12/22/2024 2:14 PM EDT) [facility] Calcidiol+ercalc idiol 62 30 - 100 ng/mL 12/22/2024 10:26 PM EDT [employer] [facility] Comment: Vitamin D Status 25-OH Vitamin D: Deficiency: <20 ng/mL Insufficiency: 20 - 29 ng/mL Optimal: > or = 30 ng/mL For 25-OH Vitamin D testing on patients on D2-supplementation and patients for whom quantitation of D2 and D3 fractions is required, the QuestAssureD(TM) 25-OH VIT D, (D2,D3), LC/MS/MS is recommended: order code [id number] (patients >2yrs). See Note 1 Note 1 For additional information, please refer to http://education.Naytev/faq/VLJ120 (This link is being provided for informational/ educational purposes only.) Blood Structure of peripheral vein / Unknown Venipuncture / Unknown 12/22/2024 2:14 PM EDT 12/22/2024 2:51 PM EDT Narrative BALTA MENEZES - 12/22/2024 10:26 PM EDT [facility] Received Date:[id number] us Lauren Hancock MD LAB BLOOD ORDERABLES Fin al Result Performing Organization Address City/[facility]/ZIP Co de Phone Number BALTA MENEZES 200 [facility] [address] [facility], [place] [address], [place] [phone] [employer] [facility] [address], [place] [address], [place] [phone] * Mitochondrial Antibody w/Reflex (12/22/2024 2:14 PM EDT) [facility] Mitochondrial Ab Screen NEGATIVE NEGATIVE 12/25/2024 12:24 PM EDT [employer] [facility] Blood Structure of peripheral vein / Unknown Venipuncture / Unknown 12/22/2024 2:14 PM EDT 12/22/2024 2:51 PM EDT Narrative JAZIO [place] - 12/25/2024 12:24 PM EDT [facility] Received Date: us Lauren Hancock MD LAB BLOOD ORDERABLES Fin al Result Performing Organization Address City/[facility]/ZIP Co de Phone Number [facility] [address], [place] [address], [place] [phone] [employer] [facility] [address], [place] [address], [place] [phone] * Toxoplasma gondii Antibody, IgG (12/22/2024 2:14 PM EDT) [facility] Toxoplasma Ab IgG <7.20 IU/mL 12/23/2024 4:53 AM EDT [employer] [facility] Comment: IU/mL Interpretation ------ <7.20 Negative 7.20-8.79 Equivocal >8.79 Positive Blood Structure of peripheral vein / Unknown Venipuncture / Unknown 12/22/2024 2:14 PM EDT 12/22/2024 2:51 PM EDT Narrative JAZIO [place]IG[place]ON - 12/23/2024 4:53 AM EDT [facility] Received Date: us Lauren Hancock MD LAB BLOOD ORDERABLES Fin al Result [facility] 200 [facility] 3rd Floor, [address] [place] [address], [place] [phone] [employer] [facility] [address], [place] [address], * HIV-1/2 Antigen/Antibodies 4th Generation w/Reflex (12/22/2024 2:14 PM EDT) HIV Final Interp See Comments 12/22/2024 7:45 PM EDT [facility] Comment: HIV Negative HIV-1 antigen and HIV-1/HIV-2 antibodies were not detected. There is no laboratory evidence of HIV infection. Blood Structure of peripheral vein / Unknown Venipuncture / Unknown 12/22/2024 2:14 PM EDT 12/22/2024 2:50 PM EDT Narrative JAZIO [place] - 12/22/2024 7:45 PM EDT [facility] Received Date: Lauren Hancock MD LAB BLOOD ORDERABLES Fin al Result [facility] 200 [facility] [address] [facility], [place] [address], [employer] [facility] [address], [place] [address], * Hepatitis B Surface Antibody (12/22/2024 2:14 PM EDT) Hepatitis B Surface Ab Immunity, Qn 173 > OR = 10 mIU/mL 12/22/2024 10:28 PM EDT [facility] Comment: PATIENT HAS IMMUNITY TO HEPATITIS B VIRUS. For additional information, please refer to http://education.Sher[employer]/faq/YWV732 (This link is being provided for informational/ educational purposes only). Blood Structure of peripheral vein / Unknown Venipuncture / Unknown 12/22/2024 2:14 PM EDT 12/22/2024 2:51 PM EDT Narrative JAZIO PIGEON - 12/22/2024 10:28 PM EDT [facility] Received Date:[id number] us Lauren Hancock MD LAB BLOOD ORDERABLES Fin al Result BALTA MENEZES 200 [facility] [address] [facility], [place] [address], [place] [phone] [employer] [facility] [address], [place] [address], * Hepatitis B Surface Antigen w/Confirmation (12/22/2024 2:14 PM EDT) Hepatitis B Surface Antigen NON-REACT DEREJE NON-REACT DEREJE 12/23/2024 10:30 AM EDT [employer] [facility] Comment: For additional information, please refer to http://education.Sher[employer]/faq/JQX874 (This link is being provided for informational/ educational purposes only.) Blood Structure of peripheral vein / Unknown Venipuncture / Unknown 12/22/2024 2:14 PM EDT 12/22/2024 2:52 PM EDT Narrative [facility] - 12/23/2024 10:30 AM EDT [employer] Received Date:[id number] us Lauren Hancock MD LAB BLOOD ORDERABLES Fin al Result BALTA MENEZES [address], [place] [address], [place] [phone] [employer] [facility] [address], [place] [address], * (ABNORMAL) Cytomegalovirus Antibody, IgG (12/22/2024 2:14 PM EDT) Pathologist [facility] Cytomegalovirus Antibody (IgG) >10.00(H ) U/mL 12/23/2024 3:42 AM EDT [employer] [facility] Comment: U/mL Interpretation ----- <0.60 Negative 0.60-0.69 Equivocal > or = 0.70 Positive A positive result indicates that the patient has antibody to CMV. It does not differentiate between an active or past infection. Blood Structure of peripheral vein / Unknown Venipuncture / Unknown 12/22/2024 2:14 PM EDT 12/22/2024 2:50 PM EDT Narrative [facility] - 12/23/2024 3:42 AM EDT [facility] Received Date:[id number] Lauren Hancock MD LAB BLOOD ORDERABLES Fin al Result Performing Organization Address City/[facility]/ZIP Co de Phone Number [facility] 200 [facility] 3rd Floor, [place] [address], [place] [phone] [employer] [address] [facility], [place] [address], [place] [phone] * PTT (12/22/2024 2:14 PM EDT) aPTT 29.1 23.0 - 32.0 Seconds 12/22/2024 3:16 PM EDT [facility] Comment: Current PTT reagent is not sensitive to detect all Lupus Anticoagulant (LA) Inhibitor Cases. If a LA is suspected, please order a Lupus Anticoagulation w/ Reflex Test which is performed at [facility] in [place], [place]. Blood Structure of peripheral vein / Unknown Venipuncture / Unknown 12/22/2024 2:14 PM EDT 12/22/2024 2:53 PM EDT us Lauren Hancock MD LAB BLOOD ORDERABLES Fin al Result Performing Organization Address City/[facility]/ZIP Co de Phone Number [facility] [address] [place] [address], * (ABNORMAL) Protime-INR (12/22/2024 2:14 PM EDT) PT 12.6(H) 9.6 - 12.4 Seconds 12/22/2024 3:16 PM EDT [facility] SYSTEMcrealyticsCOMM[facility] INR 1.2 0.9 - 1.1 12/22/2024 3:16 PM EDT [facility] [employer] [facility] Comment:The optimal therapeu tic INR range for patients treated with Vitamin K antagonists (VKAS, e.g., Warfarin) is 2.0 to 3.5. Discuss the desired range with your doctor/care team. Blood Structure of peripheral vein / Unknown Venipuncture / Unknown 12/22/2024 2:14 PM EDT 12/22/2024 2:53 PM EDT Lauren Hancock MD LAB BLOOD ORDERABLES Fin al Result Performing Organization Address City/[facility] Co de Phone Number [facility] [employer] [facility] [address] [place] [address], * Type and Screen (12/22/2024 2:14 PM EDT) ABO Blood Type A 12/22/2024 3:35 PM EDT [facility] RH Type Positive 12/22/2024 3:35 PM EDT [facility] Expiration Date/Time 2024-12-25 23:59 12/22/2024 3:35 PM EDT [facility] Antibody Screen Negative 12/22/2024 3:35 PM EDT [facility] Blood Structure of peripheral vein / Unknown Venipuncture / Unknown 12/22/2024 2:14 PM EDT 12/22/2024 2:17 PM EDT Lauren Hancock MD LAB BLOOD BANK TEST ORDE MAGALIS Final Result [facility] [address] [place] [address], * Varicella Zoster Antibody, IgG (12/22/2024 2:14 PM EDT) Varicella Zoster Virus Antibody 30.50 S/CO 12/22/2024 10:41 PM EDT [employer] [facility] Comment: Signal to Cut-off S/CO Interpretation [...] PM EDT 12/22/2024 2:51 PM EDT Narrative [facility] 12/22/2024 10:41 PM EDT [facility] Received Date:[id number] us Lauren Hancock MD LAB BLOOD ORDERABLES Fin al Result Performing Organization Address City/[facility] Co de Phone Number BALTA [address], [place] [address], [place] [phone] [employer] [address], [place] [address], [place] [phone] * Phosphorus (12/22/2024 2:14 PM EDT) Phosphorus 4.0 2.5 - 4.5 mg/dL 12/22/2024 3:36 PM EDT [facility] Blood Structure of peripheral vein / Unknown Venipuncture / Unknown 12/22/2024 2:14 PM EDT 12/22/2024 2:51 PM EDT us Lauren Hancock MD LAB BLOOD ORDERABLES Fin al Result [facility] [address] [place] [address], * Magnesium (12/22/2024 2:14 PM EDT) MG 1.6 1.6 - 2.4 mg/dL 12/22/2024 3:36 PM EDT [facility] Blood Structure of peripheral vein / Unknown Venipuncture / Unknown 12/22/2024 2:14 PM EDT 12/22/2024 2:51 PM EDT Lauren Hancock MD LAB BLOOD ORDERABLES Fin al Result Performing Organization Address [facility] Co de Phone Number [employer] [address] [place] [address], * (ABNORMAL) Hemoglobin A1c (12/22/2024 2:14 PM EDT) Hemoglobin A1C 5.9(H) <5.7 % 12/22/2024 8:27 PM EDT [facility] Comment: For someone without known diabetes, a [...] (MG/DL) 123 mg/dL 12/22/2024 8:27 PM EDT [facility] eAG (MMOL/L) 6.8 mmol/L 12/22/2024 8:27 PM EDT [facility] Blood Structure of peripheral vein / Unknown Venipuncture / Unknown 12/22/2024 2:14 PM EDT 12/22/2024 2:51 PM EDT Narrative [facility] 12/22/2024 8:27 PM EDT [facility] Received Date:[id number] Lauren Hancock MD LAB BLOOD ORDERABLES Fin al Result [facility] [place] 200 [facility] 3rd Floor, [place] [address], [place] [phone] [facility] [employer] [facility] 200 [facility] 3rd Floor, [place] [address], [place] [phone] * Ferritin (12/22/2024 2:14 PM EDT) Ferritin 172.0 11.0 - 306.0 ng/mL 12/22/2024 3:36 PM EDT [facility] Blood Structure of peripheral vein / Unknown Venipuncture / Unknown 12/22/2024 2:14 PM EDT 12/22/2024 2:51 PM EDT Lauren Hancock MD LAB BLOOD ORDERABLES Fin al Result Performing Organization Address City/[facility]/ZIP Co de Phone Number [facility] [address] [place] [address], [place] * Bilirubin, Direct (12/22/2024 2:14 PM EDT) Bilirubin, Direct 0.3 <=0.4 mg/dL 12/22/2024 3:36 PM EDT [facility] Blood Structure of peripheral vein / Unknown Venipuncture / Unknown 12/22/2024 2:14 PM EDT 12/22/2024 2:51 PM EDT Lauren Hancock MD LAB BLOOD ORDERABLES Fin al Result [facility] [address] [place] [address], [place] * Ethanol (12/22/2024 2:14 PM EDT) Ethanol <10 <10 mg/dL 12/22/2024 3:38 PM EDT [facility] Blood Structure of peripheral vein / Unknown Venipuncture / Unknown 12/22/2024 2:14 PM EDT 12/22/2024 2:50 PM EDT Lauren Hancock MD LAB BLOOD ORDERABLES Fin al Result [facility] [address] [place] [address], * (ABNORMAL) Lipid panel (12/22/2024 2:14 PM EDT) Cholesterol 203(H) <=199 mg/dL 12/22/2024 3:36 PM EDT [facility] Triglycerides 171(H) <=149 mg/dL 12/22/2024 3:36 PM EDT [facility] Cholesterol, HDL 39(L) 40 - 59 mg/dL 12/22/2024 3:36 PM EDT [facility] Cholesterol, Non-HDL 164 mg/dL 12/22/2024 3:36 PM EDT [facility] LDL Cholesterol 130(H) <100 mg/dL 12/22/2024 3:36 PM EDT [facility] VLDL 34.2 mg/dL 12/22/2024 3:36 PM EDT [facility] Cholesterol/HDL Ratio 5.2(H) <5.0 12/22/2024 3:36 PM EDT [facility] Blood Structure of peripheral vein / Unknown Venipuncture / Unknown 12/22/2024 2:14 PM EDT 12/22/2024 2:51 PM EDT Narrative [facility] - 12/22/2024 3:36 PM [...] MD LAB BLOOD ORDERABLES Fin al Result [facility] [address] [place] [address], * (ABNORMAL) Comprehensive Metabolic Panel (12/22/2024 2:14 PM EDT) NA 141 135 - 145 mmol/L 12/22/2024 3:36 PM EDT [facility] K 3.9 3.5 - 5.3 mmol/L 12/22/2024 3:36 PM EDT [facility] Cl 101 98 - 107 mmol/L 12/22/2024 3:36 PM EDT [facility] CO2 27 22 - 32 mmol/L 12/22/2024 3:36 PM EDT [facility] Anion Gap 13 5 - 15 12/22/2024 3:36 PM EDT [facility] Glucose 85 65 - 99 mg/dL 12/22/2024 3:36 PM EDT [facility] Creatinine 0.77 0.50 - 1.20 mg/dL 12/22/2024 3:36 PM EDT [facility] Calcium 10.5 8.6 - 10.5 mg/dL 12/22/2024 3:36 PM EDT [facility] Total Protein 8.3(H) 6.0 - 8.0 g/dL 12/22/2024 3:36 PM EDT [employer] Albumin 3.9 3.5 - 5.2 g/dL 12/22/2024 3:36 PM EDT [facility] SYSTEMcrealyticsCOMM[facility] Bilirubin, Total 0.6 0.2 - 1.2 mg/dL 12/22/2024 3:36 PM EDT [facility]ytics[facility] Alkaline Phosphatase 71 35 - 129 U/L 12/22/2024 3:36 PM EDT [facility] CENTERAtlas LocalKY [facility] AST 35 10 - 40 U/L 12/22/2024 3:36 PM EDT [facility]ytics[facility] ALT 30 10 - 40 U/L 12/22/2024 3:36 PM EDT [facility] SYSTEM[facility]ytics[facility] BUN 12 7 - 23 mg/dL 12/22/2024 3:36 PM [facility]yticsCOMM[facility] eGFR 83 >=60 mL/min/1. 73m2 12/22/2024 3:36 PM T [facility] SYSTEMRewarderKY [facility] Comment:The estimated glomer ular [...] - 4.2 g/dL 12/22/2024 3:36 PM T [facility]crealyticsCOMM[facility] A/G Ratio 0.9(L) 1.5 - 3.0 12/22/2024 3:36 PM T Apontador[facility]IRewarderKY [facility] Blood Structure of peripheral vein / Unknown Venipuncture / Unknown 12/22/2024 2:14 PM EDT 12/22/2024 2:51 PM EDT us Lauren Hancock MD LAB BLOOD ORDERABLES Fin al Result [facility] [address] [place] [address], [place] from Last 3 Months Insurance [facility] Advance Directives Documents on File Type Date Recorded Patient Sheep Farm Worker Expl [facility] Health Care Proxy 01/19/2025 2:50 PM 2024 Care Teams Cattle Examiner Relationship Specialty Start Date End Date Darius Tamayo MD [address] [place] [address] [phone] PCP - General Gastroenterology 12/22/24
--- OUTSIDE RECORDS SUMMARY | 2025-03-16 11:41 | XMS_ITS ---
Author Organization [facility] Address [address] [place] [address] Care Team Providers Care Inter Com Installer Name Role Phone Darius Tamayo MD Primary Care Provider [phone] Transplant Episode Liver Candidate [facility] ([place], [place]) [facility] Center waitlisted on 03/02/2025 Marked as Active on 03/02/2025 Liver CoordinatorSabrina Dahl RN Phone: N/A Fax: N/A Email: N/A Scores Score Value Updated Expires Exceptions/Jeannie sons CPRA Not available UNOS MELD 11 03/02/2025 05/31/2025 MELD (Calc) 11 03/01/2025 Morongo Organ Diagnosis Organ Primary Contributory Liver Primary Liver Malign kary: Hepatoma (HCC) and Cirrhosis 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) Infection History Noted Survival Infection Treatment Organism Resolved 11/25/2015 Chronic hepatitis C Care Team Name Role Phone Fax Email Sabrina Dahl RN Liver Coordinator N/A N/A N/A Lauren Hancock MD Tool Crib Attendant [phone] [email or web address] [email or web address] Darius Tamayo MD Referring Physician [phone] [email or web address] Pre-Transplant Referred: 12/01/2024 Evaluation began: 12/22/2024 Committee: 01/28/2025 Center waitlisted: 03/02/2025 Appointments (02/13/2025 - 04/15/2025) When With Visit Type Description 03/18/2025 Transplant - Ethel-Fawn Bell
--- OUTSIDE RECORDS SUMMARY | 2025-03-16 11:41 | XMS_ITS | Encounter Summary ---
Author Organization [facility] Address [address] [place] [address] Care Team Providers Care Public Relations Officer Name Role Phone Darius Tamayo MD Primary Care Provider [phone] Encounter Details Date Type Department Care Team (Late st Contact Info) Description 03/02/2025 Results Follow[facility]Up [facility] [address] [place] [address] Sabrina Dahl RN Social History Tobacco Use [...] Info) Description 03/18/2025 2:00 PM EST [facility] [address] [place] [address] Lauren Hancock MD [address] [place] [address] 04/02/2025 10:00 AM EST Office Visit [facility] 4th floor Cardiology Medicine [address] [place] [address] Wooden Barrel Mechanic: James Reynoso MD [address] [place] [address] documented as of this encounter Visit Diagnoses Not on filedocumented in this encounter Care Teams Public Relations Officer Relationship Specialty Start Date End Date Darius Tamayo MD [address] [place] [address] PCP - General Gastroenterology 12/22/24 documented as of this encounter
--- OUTSIDE RECORDS SUMMARY | 2025-03-16 11:41 | XMS_ITS | Encounter Summary ---
Author Organization [facility] Address [address] [place] [address] Care Team Providers Care Highway Maintainer Name Role Phone Darius Tamayo MD Primary Care Provider Encounter Details Date Type Department Care Team (Late st Contact Info) Description 12/22/2024 Education [facility] Transplant Department [address] [place] [address] Sabrina Dahl RN Social History Tobacco Use [...] Info) Description 03/18/2025 2:00 PM EST Follow-Up [facility] Liver Transplant Services [address] [place] [address] Lauren Hancock MD [address] [place] [address] 04/02/2025 10:00 AM EST Office Visit [facility] Building 4th floor Cardiology Medicine [address] [place] [address] Sugar Mill Worker: James Reynoso MD [address] [place] [address] documented as of this encounter Visit Diagnoses Not on filedocumented in this encounter Care Teams Highway Maintainer Relationship Specialty Start Date End Date Darius Tamayo MD [address] [place] [address] PCP - General Gastroenterology 12/22/24 documented as of this encounter
--- OUTSIDE RECORDS SUMMARY | 2025-03-16 11:41 | XMS_ITS | Encounter Summary ---
Author Organization [facility] Address [address] [place] [address] Care Team Providers Care Client Customer Manager Name Role Phone Darius Tamayo MD Primary Care Provider [phone] Encounter Details Date Type Department Care Team (Late st Contact Info) Description 03/08/2025 Orders Only [facility] Transplant Department [address] [place] [address] Provider, Cem, [address] [place] [address] Social History Tobacco Use Types Packs/Day [...] Info) Description 03/18/2025 2:00 PM EST Follow-Up [facility] Liver Transplant Services [address] [place] [address] Lauren Hancock MD [address] [place] [address] 04/02/2025 10:00 AM EST Office Visit [facility] Building 4th floor Cardiology Medicine [address] [place] [address] Timber Spotter: James Reynoso MD [address] [place] [address] documented as of this encounter Procedures * Due to [place] [employer] law, this organization might not be sharing negative HIV tests. Procedure Name Priority Date/Time Associated Diagnosis Comments LAB - SCANNED Routine 03/01/2025 11:14 AM EDT documented in this encounter Results * Due to [place] [employer] law, this organization might not be sharing negative HIV tests. * LAB - SCANNED (03/01/2025 11:14 AM EDT) us Unknown Provider LAB HISTORICAL RESULTS Final Result documented in this encounter Visit Diagnoses Not on filedocumented in this encounter Care Teams Client Customer Manager Relationship Specialty Start Date End Date Darius Tamayo MD [address] [place] [address] PCP - General Gastroenterology 12/22/24 documented as of this encounter
== END 2025-03-16 11:26 | disposition home or self-care (01) ==
LOC: HO.HOS 10:01
PROVIDERS: PCP Nurse Practitioner Primary Care; Visit Provider Orthopaedic Surgery
DX: M65.331 Trigger finger, right middle finger (principal); M65.332 Trigger finger, left middle finger; M24.541 Contracture, right hand
CPT/HCPCS: 99204

== ENCOUNTER → 2025-03-16 10:01 | Outpatient (BNVA) | payer MEDICARE, MEDICAID, SELFPAY | PROVIDERS: PCP Nurse Practitioner Primary Care; Visit Provider Orthopaedic Surgery | DX: M79.641 Pain in right hand (principal); M65.331 Trigger finger, right middle finger; M24.541 Contracture, right hand; M65.332 Trigger finger, left middle finger; Z87.891 Personal history of nicotine dependence; Z79.01 Long term (current) use of anticoagulants; I48.91 Unspecified atrial fibrillation; Z85.05 Personal history of malignant neoplasm of liver | CPT/HCPCS: 99202 ==

== ENCOUNTER 2025-03-22 10:48 | Outpatient (AMB) | payer MEDICARE, MEDICAID, SELFPAY ==
[2025-03-22 10:50] VITALS: BP 122/62; PULSE 76; BMI 30.7
--- NOTE | 2025-03-22 10:50 | MHC.OFFVIS ---
Vital Signs 03/22/25 10:50 Height 4 ft 11 in Weight 152 lb 1.903 oz BMI 30.7 BP 122/62 Blood Pressure Location Lt brachial Position Sitting Pulse 76 Pulse Source Pulse Oximeter Intake Visit Reasons: 3m follow up Allergies rivaroxaban (From XARELTO) Allergy (Intermediate, Verified 03/16/25 10:40) GI BLEEDING SEAFOOD Allergy (Intermediate, Uncoded 03/16/25 10:40) RASH Medication List - Last Reconciled 03/22/25 by Everett Rojas MD albuterol sulfate 90 mcg/actuation (ProAir HFA) 2 puffs PO Q4-6H PRN apixaban (Eliquis) 5 mg PO BID calcium carbonate-vitamin D3 600 mg-10 mcg (400 unit) 1 tab PO DAILY cholecalciferol (vitamin D3) 25 mcg PO QAM fluticasone furoate 100 mcg/actuation (Arnuity Ellipta) 1 inh inhalation DAILY fluticasone propionate 110 mcg/actuation (Flovent HFA) 1 puff inhalation BID hydrochlorothiazide 25 mg PO QAM lidocaine 5% (Lidoderm) 1 - 2 patches topical DAILY PRN metoprolol tartrate 50 mg PO BID mometasone 100 mcg/actuation (Asmanex HFA) 1 puff inhalation BID montelukast 10 mg PO BEDTIME tramadol 50 - 100 mg PO Q12H PRN HPI Comments Details: Walt returns for follow-up regarding paroxysmal atrial fibrillation. She has a history of paroxysmal atrial fibrillation and was doing well on flecainide and beta-blockers but due to recurrent issues, she underwent ablation in April 2024. Then we left her only on beta-blockers. With regard to anticoagulation, she was on Xarelto till around 2016 when she had GI bleeding with severe anemia and hemoglobin of about 4.9. After that, she was not on anticoagulation for many years but has been taking Eliquis for the last year. This year, she has been diagnosed with hepatocellular carcinoma and is pursuing treatment for that. It seems she might get listed for liver transplant but not clear. Overall, she is feeling good. No cardiac symptoms. She also needs to go for hence surgery. [facility] Medical History Hemorrhage of gastrointestinal tract, unspecified PAF (paroxysmal atrial fibrillation) Tubular adenoma of colon Low vitamin D level Atrial fibrillation Cirrhosis of liver Asthma Hepatitis B Surgical History Hx of cataract surgery History of eyelid surgery History of esophagogastroduodenoscopy (EGD) Hx of colonoscopy History of total abdominal hysterectomy and bilateral salpingo-oophorectomy History of 3 sections Family History Father No problems noted. Mother No problems noted. 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 Review of Systems Const Denies weakness ENT Denies dizziness Card Denies chest pain, Denies chest pain with activity, Denies syncope, Denies rapid heart rate, Denies pedal edema, Denies edema, Denies leg edema, Denies lightheadedness, Denies palpitations, Denies dyspnea, Denies dyspnea on exertion and Denies orthopnea Resp Denies cough, Denies dyspnea and Denies dyspnea on exertion GI Denies hematochezia and Denies change in stool character Musc Denies abnormal gait, Denies muscle cramps, Denies muscle weakness, Denies numbness, Denies radiating pain into limb and Denies tingling Neuro Denies abnormal gait, Denies dizziness, Denies syncope, Denies numbness, Denies tingling and Denies weakness Endo Denies palpitations Physical Exam Vital Signs: Last Vital Signs Pulse 76 03/22/25 10:50 BP 122/62 03/22/25 10:50 BMI result Body Mass Index 30.7 Const General: comfortable and no acute distress Orientation/consciousness: patient oriented x3 HEENT Other: Unremarkable Head: Yes normal to inspection Neck Neck: Yes normal visual inspection Chest Chest palpation & inspection: normal inspection of the chest Resp Auscultation: clear to auscultation bilaterally Cardio Palpation: normal PMI Heart sounds: S1 normal heart sound present, S2 normal heart sound present, no gallops, no murmurs and no rubs GI Palpation (GI): Soft to palpation Back/Spine/Pelvis Other: unremarkable Skin General skin exam: no rashes or lesions noted Neuro General: patient oriented x3 Extrem General: Yes normal to inspection Psych Mental Status: mental status grossly normal Assessment & Plan Assessment & Plan (1) PAF (paroxysmal atrial fibrillation): Code(s): I48.0 - Paroxysmal atrial fibrillation Category: Medical Plan: Status post ablation. In the last Holter, underlying sinus rhythm without any clear-cut atrial fibrillation. Due to history of severe anemia, history of cirrhosis, recent diagnosis of hepatocellular carcinoma and potential liver transplant in the future, we can stop the Eliquis. We will monitor her for any recurring atrial fibrillation. (2) Essential hypertension: Code(s): I10 - Essential (primary) hypertension Category: Medical Plan: Stable. No changes. (3) Preoperative cardiovascular examination: Code(s): Z01.810 - Encounter for preprocedural cardiovascular examination Category: Medical Plan: Plans for hand surgery noted. Low cardiac risk. Medications: Discontinued apixaban (Eliquis) Discontinued Reason: Doctor's Order 5 mg PO BID 60 tabs 11RF Coding Level of Care Code Est Pt Level 4 (36006) Complex EM visit Add On G2211 Diagnoses PAF (paroxysmal atrial fibrillation) I48.0 Essential hypertension I10 Preoperative cardiovascular examination Z01.810
--- OUTSIDE RECORDS SUMMARY | 2025-03-22 12:50 | XMS_ITS | Encounter Summary ---
Author Organization [employer] Address [address] [place] [address] 7t [place] [address] Care Team Providers Care Bushwalking Guide Name Role Phone Sudha Mitchell Primary Care Provider Everett Rojas MD Unavailable Reason for Visit * Reason Comments Med Refill Encounter Details Date Type Department Care Team (Late st Contact Info) Description 08/14/2022 Refill [facility] [address] [place] [address] [facility] [address] [place] [address] Lumbago of lumbar region with sciatica Social [...] Description 03/22/2025 2:00 PM EST Office Visit [facility] [address] [place] [address] Sudha Mitchell ANP [address] [place] [address] 04/15/2025 10:30 AM EST Office Visit [address] [address] Sudha Mitchell ANP [address] [place] [address] documented as of this encounter Visit Diagnoses Diagnosis Lumbago of lumbar region with sciatica documented in this encounter Care Teams Bushwalking Guide Relationship Specialty Start Date End Date Sudha Mitchell ANP [address] [place] [address] PCP - General Family Medicine 09/29/19 Everett Rojas MD [address] [place] [address] Drive 3rd [place] [address] Cardiology 04/21/24 documented as of this encounter
--- OUTSIDE RECORDS SUMMARY | 2025-03-22 12:50 | XMS_ITS | Encounter Summary ---
Author Organization [employer] Address [address] [facility] [address] 7t [place] [address] Care Team Providers Care Mathematical Sciences Professor Name Role Phone Sudha Mitchell Primary Care Provider [phone] Everett Rojas MD Unavailable [phone] Reason for Visit * Reason Comments Med Refill Encounter Details Date Type Department Care Team ([facility] st Contact Info) Description 09/18/2023 Refill [facility] [address] [place] [address] Sudha Mitchell ANP [address] [place] [address] Lumbago of lumbar region with sciatica Social [...] Description 03/22/2025 2:00 PM EST Office Visit [address] [address] Sudha Mitchell ANP [address] [place] [address] 04/15/2025 10:30 AM EST Office Visit [address] [address] Sudha Mitchell ANP [address] [place] [address] documented as of this encounter Visit Diagnoses Diagnosis Lumbago of lumbar region with sciatica documented in this encounter Care Teams Mathematical Sciences Professor Relationship Specialty Start Date End Date Sudha Mitcehll ANP [address] [place] [address] PCP - General Family Medicine 09/29/19 Everett Rojas MD [address] [place] [address] 3rd [place] [address] Cardiology 04/21/24 documented as of this encounter
--- OUTSIDE RECORDS SUMMARY | 2025-03-22 12:50 | XMS_ITS | Encounter Summary ---
Author Organization [employer] Address [address] [place] [address] 7t [place] [address] Care Team Providers Care Police Chief Name Role Phone Sudha Mitchell Primary Care Provider Everett Rojas MD Unavailable [phone] Reason for Visit * Reason Comments Med Refill Encounter Details Date Type Department Care Team (Late st Contact Info) Description 06/22/[address] [address] Sudha Mitchell ANP [address] [place] [address] Lumbago of lumbar region with sciatica Social [...] Description 03/22/2025 2:00 PM EST Office Visit [address] [address] Sudha Mitchell ANP [address] [place] [address] 04/15/2025 10:30 AM EST Office Visit [address] [address] Sudha Mitchell ANP [address] [place] [address] [place] [address] documented as of this encounter Visit Diagnoses Diagnosis Lumbago of lumbar region with sciatica documented in this encounter Care Teams Police Chief Relationship Specialty Start Date End Date Sudha Mitchell ANP [address] [place] [address] PCP - General Family Medicine 09/29/19 Everett Rojas MD [address] [place] [address] 3rd [place] [address] Cardiology 04/21/24 documented as of this encounter
--- OUTSIDE RECORDS SUMMARY | 2025-03-22 12:50 | XMS_ITS | Encounter Summary ---
Author Organization [employer] Address [address] [place] [address] 7t [place] [address] Care Team Providers Care Boiler Or Engine Operator Name Role Phone Sudha Mitchell Primary Care Provider [phone] Everett Rojas MD Unavailable [phone] Reason for Visit * Reason Onset Date Comments Med Refill 11/23/2022 Encounter Details Date Type Department Care Team (Late st Contact Info) Description 11/23/2022 Telephone [facility] [address] [place] [address] Sudha Mitchell ANP [address] [place] [address] Med Refill Social History Tobacco Use Types [...] Description 03/22/2025 2:00 PM EST Office Visit [address] [address] Sudha Mitchell ANP [address] [place] [address] 04/15/2025 10:30 AM EST Office Visit [address] [address] Sudha Mitchell ANP [address] [place] [address] documented as of this encounter Visit Diagnoses Not on filedocumented in this encounter Care Teams Boiler Or Engine Operator Relationship Specialty Start Date End Date Sudha Mitchell ANP [address] [place] [address] PCP - General Family Medicine 09/29/19 Everett Rojas MD [address] [place] [address] 3rd [place] [address] Cardiology 04/21/24 documented as of this encounter
--- OUTSIDE RECORDS SUMMARY | 2025-03-22 12:50 | XMS_ITS | Encounter Summary ---
Author Organization [employer] Address [address] [facility] 7t [place] [address] Care Team Providers Care Hockey Instructor Name Role Phone Sudha Mitchell Primary Care Provider Everett Rojas MD Unavailable [phone] Reason for Visit * Reason Comments Med Refill Encounter Details Date Type Department Care Team (Late st Contact Info) Description 05/02/2022 Refill [facility] [address] [place], [place] [id number] Sudha Mitchell ANP 230 [place] [address] Cervicalgia Social History Tobacco Use Types Packs/Day [...] Description 03/22/2025 2:00 PM EST Office Visit [address] [address] Sudah Mitchell ANP [address] [place] [address] 04/15/2025 10:30 AM EST Office Visit [address] [address] Sudha Mitchell ANP [address] [place] [address] documented as of this encounter Visit Diagnoses Diagnosis Cervicalgia documented in this encounter Care Teams Hockey Instructor Relationship Specialty Start Date End Date Sudha Mitchell ANP [address] [place] [address] PCP - General Family Medicine 09/29/19 Everett Rojas MD [address] [place] [address] 3rd [place] [address] Cardiology 04/21/24 documented as of this encounter
--- OUTSIDE RECORDS SUMMARY | 2025-03-22 12:51 | XMS_ITS | Encounter Summary ---
Author Organization [employer] Address [address] [facility] 7t [place] [address] Care Team Providers Care Dental Hygiene Professor Name Role Phone Sudha Mitchell Primary Care Provider [phone] Everett Rojas MD Unavailable [phone] Encounter Details Date Type Department Care Team ([facility] st Contact Info) Description 03/17/2025 Orders Only [facility] 230 [place] [address] Sudha Mitchell ANP 230 [place] [address] Acute gout of hand, unspecified cause, unspecified laterality (Primary Dx) Social History Tobacco Use Types [...] Description 03/22/2025 2:00 PM EST Office Visit [facility] [address] [place] [address] Sudha Mitchell ANP [address] [place] [address] 04/15/2025 10:30 AM EST Office Visit [address] [address] Sudha Mitchell ANP [address] [place] [address] documented as of this encounter Visit Diagnoses Diagnosis Acute gout of hand, unspecified cause, unspecified laterality- Primary documented in this encounter Additional Health Concerns Assessment Noted Time PHQ-9 Depression Total Score: 7 10/08/19 25 7:52 AM EDT documented as of this encounter Care Teams Dental Hygiene Professor Relationship Specialty Start Date End Date Sudha Mitchell ANP [address] [place] [address] PCP - General Family Medicine 09/29/19 Everett Rojas MD [address] [place] [address] 3[address] [place] [address] Cardiology 04/21/24 documented as of this encounter
--- OUTSIDE RECORDS SUMMARY | 2025-03-22 12:51 | XMS_ITS | Encounter Summary ---
Author Organization [employer] Address [address] [facility] 7t [place] [address] Care Team Providers Care Product Accountant Name Role Phone Sudha Mitchell Primary Care Provider [phone] Everett Rojas MD Unavailable [phone] Reason for Visit * Reason Comments Med Refill Encounter Details Date Type Department Care Team ([facility] st Contact Info) Description 10/18/2023 Refill [facility] 230 [place] [address] Sudha Mitchell ANP 230 [place] [address] Lumbago of lumbar region with sciatica Social [...] Description 03/22/2025 2:00 PM EST Office Visit [address] [address] Sudha Mitchell ANP [address] [place] [address] 04/15/2025 10:30 AM EST Office Visit [address] [address] Sudha Mitchell ANP [address] [place] [address] documented as of this encounter Visit Diagnoses Diagnosis Lumbago of lumbar region with sciatica documented in this encounter Care Teams Product Accountant Relationship Specialty Start Date End Date Sudha Mitchell ANP [address] [place] [address] PCP - General Family Medicine 09/29/19 Everett Rojas MD [address] [place] [address] 3rd [place] [address] Cardiology 04/21/24 documented as of this encounter
--- OUTSIDE RECORDS SUMMARY | 2025-03-22 12:51 | XMS_ITS | Encounter Summary ---
Author Organization [employer] Address [address] [facility] [address] 7t [place] [address] Care Team Providers Care Wrapper Stitcher Name Role Phone Sudha Mitchell Primary Care Provider [phone] Everett Rojas MD Unavailable [phone] Reason for Visit * Reason Comments Med Refill Encounter Details Date Type Department Care Team ([facility] st Contact Info) Description 03/23/2024 Refill [facility] [address] [place] [address] Sudha Mitchell ANP [address] [place] [address] Lumbago of lumbar region with sciatica Social [...] Description 03/22/2025 2:00 PM EST Office Visit [address] [address] Sudha Mitchell ANP [address] [place] [address] 04/15/2025 10:30 AM EST Office Visit [address] [address] Sudha Mitchell ANP [address] [place] [address] documented as of this encounter Visit Diagnoses Diagnosis Lumbago of lumbar region with sciatica documented in this encounter Care Teams Wrapper Stitcher Relationship Specialty Start Date End Date Sudha Mitchell ANP [address] [place] [address] PCP - General Family Medicine 09/29/19 Everett Rojas MD [address] 3rd [place] [address] Cardiology 04/21/24 documented as of this encounter
--- OUTSIDE RECORDS SUMMARY | 2025-03-22 12:51 | XMS_ITS | Encounter Summary ---
Author Organization [employer] Address [address] [facility] [address] 7t [place] [address] Care Team Providers Care Secondary School Special Ed Teacher Name Role Phone Sudha Mitchell Primary Care Provider [phone] Everett Rojas MD Unavailable Reason for Visit * Reason Comments Med Refill Encounter Details Date Type Department Care Team ([facility] st Contact Info) Description 02/20/2024 Refill [facility] [address] [place] [address] Sudha Mitchell ANP [address] [place] [address] Lumbago of lumbar region with sciatica Social [...] Description 03/22/2025 2:00 PM EST Office Visit [address] [address] Sudha Mitchell ANP [address] [place] [address] 04/15/2025 10:30 AM EST Office Visit [address] [address] Sudha Mitchell ANP [address] [place] [address] documented as of this encounter Visit Diagnoses Diagnosis Lumbago of lumbar region with sciatica documented in this encounter Care Teams [employer] Special Ed Teacher Relationship Specialty Start Date End Date Sudha Mitchell ANP [address] [place] [address] PCP - General Family Medicine 09/29/19 Everett Rojas MD [address] 3rd [place] [address] Cardiology 04/21/24 documented as of this encounter
--- OUTSIDE RECORDS SUMMARY | 2025-03-22 12:51 | XMS_ITS | Encounter Summary ---
Author Organization [employer] Address [address] [facility] 7t [place] [address] Care Team Providers Care Parimutuel Ticket Checker Name Role Phone Sudha Mitchell Primary Care Provider [phone] Everett Rojas MD Unavailable [phone] Reason for Visit * Reason Onset Date Comments Results 03/17/2025 Encounter Details Date Type Department Care Team ([facility] st Contact Info) Description 03/17/2025 Results Follow-Up [facility] [address] [place] [address] Sudha Mitchell ANP 230 [place] [address] Sed Rate by Modified Westergren, C-reactive Protein, CBC auto differential, Uric acid Social History Tobacco Use Types Packs/Day Years [...] encounter Miscellaneous Notes * Telephone Encounter - Nita Mendoza RN - 03/17/2025 12:45 PM EST Telephone call placed to pt regarding below results and POC. Informed labs showed she needs treatment for gout. Informed PCP discussing with pharmacist medication options given her medical conditions. Pt verbalized understanding. Pt reports prednisone worked well and she is feeling much better. * Telephone Encounter - Nita Mendoza RN - 03/17/2025 12:42 PM EST ----- Message from Sudha Mitchell sent at 03/17/2025 11:57 AM EST ----- Hi - pt likely needs treatment for gout but I am asking pharmacy for assistance with what med to use given multiple comorbidities and possible side effects. Please let pt know we will be in touch. Did her symptoms get better/resolve after prednisone? ----- Message ----- From: Interface, Lab Results In Sent: 03/15/2025 2:03 PM EST To: ERIBERTO Woodard * Result Encounter Note - ERIBERTO Woodard - 03/17/2025 11:57 AM EST Hi - pt likely needs treatment for gout but I am asking pharmacy for assistance with what med to use given multiple comorbidities and possible side effects. Please let pt know we will be in touch. Did her symptoms get better/resolve after prednisone? * Result Encounter Note - ERIBERTO Woodard - 03/17/2025 11:55 AM EST Hi team - pt w/ cirrhosis, HCC, on multiple meds, in need of gout mgmt. Can you please assist in narrowing down our options? Already completed prednisone taper and uric acid has risen. Considering allopurinol but concerned for risk of liver injury. Thanks documented in this encounter Plan of Treatment Upcoming Encounters Date Type Department Care Team (Late st Contact Info) Description 03/22/2025 2:00 PM EST Office Visit [facility] [address] [place] [address] Sudha Mitchell ANP [address] [place] [address] 04/15/2025 10:30 AM EST Office Visit [address] [address] Sudha Mitchell ANP [address] [place] [address] documented as of this encounter Visit Diagnoses Not on filedocumented in this encounter Additional Health Concerns Assessment Noted Time PHQ-9 Depression Total Score: 7 10/08/19 25 7:52 AM EDT documented as of this encounter Care Teams Parimutuel Ticket Checker Relationship Specialty Start Date End Date Sudha Mitchell ANP [address] [place] [address] PCP - General Family Medicine 09/29/19 Everett Rojas MD [address]rd [place] [address] Cardiology 04/21/24 documented as of this encounter
--- OUTSIDE RECORDS SUMMARY | 2025-03-22 12:51 | XMS_ITS | Encounter Summary ---
Author Organization [facility] Address [address] [place] [address] Care Team Providers Care Insurance Licensing Supervisor Name Role Phone Darius Tamayo MD Primary Care Provider [phone] Encounter Details Date Type Department Care Team (Late st Contact Info) Description 03/18/2025 Orders Only [facility] Transplant Department [address] [place] [address] Hallie Anderson RN Encounter for pre-transplant evaluation for liver transplant (Primary Dx); Chronic hepatitis C with cirrhosis ; Hepatocellular carcinoma Social History Tobacco Use Types Packs/Day Years [...] encounter Miscellaneous Notes * Addendum Note - Hallie Anderson RN - 03/18/2025 8:02 AM ESTAddended by: HALLIE ANDERSON on: 03/18/2025 11:49 AM Modules accepted: Orders documented in this encounter Plan of Treatment Upcoming Encounters Date Type Department Care Team (Late st Contact Info) Description 04/02/2025 10:00 AM EST Office Visit [facility] 4th floor Cardiology Medicine [address] [place], [place] [phone] Tunnel Heading Inspector: Qing BurrisrJames MD [address] [place] [address] 04/22/2025 2:30 PM EST Follow-Up [facility] Liver Transplant Services [address] [place] [address] Lauren Hancock MD [address] [place] [address] Scheduled Orders Name Type Priority Associated Diagnoses Orde r Schedule CBC Auto Differential Lab Routine Encounter for pre-transplant evaluation for liver transplant Chronic hepatitis C with cirrhosis Expected: 03/18/2025, Expires: 03/18/2026 Protime-INR Lab Routine Encounter for pre-transplant evaluation for liver transplant Chronic hepatitis C with cirrhosis Expected: 03/18/2025, Expires: 03/18/2026 Comprehensive Metabolic Panel Lab Routine Encounter for pre-transplant evaluation for liver transplant Chronic hepatitis C with cirrhosis Expected: 03/18/2025, Expires: 03/18/2026 Hepatocellular Carcinoma Panel (Includes AFP, AFP-L3 & DCP) Lab Routine Encounter for pre-transplant evaluation for liver transplant Chronic hepatitis C with cirrhosis Hepatocellular carcinoma Expected: 03/18/2025, Expires: 03/18/2026 documented as of this encounter Procedures * Due to [place] [employer] law, this organization might not be sharing negative HIV tests. Procedure Name Priority Date/Time Associated Diagnosis Comments IMAGING - SCANNED Routine 03/01/2025 10: 01 AM EDT IMAGING - SCANNED Routine 12/28/2024 10: 00 AM EDT documented in this encounter Results * Due to [place] law, this organization might not be sharing negative HIV tests. * IMAGING - SCANNED (03/01/2025 10:01 AM EDT) Anatomical Region Laterality Modality Other us Unknown Provider SCANNED PROCEDURES Final Res ult * IMAGING - SCANNED (12/28/2024 10:00 AM EDT) Anatomical Region Laterality Modality Other us Unknown Provider SCANNED PROCEDURES Final Res ult documented in this encounter Visit Diagnoses Diagnosis Encounter for pre-transplant evaluation for liver transplant- Primary Chronic hepatitis C with cirrhosis Chronic hepatitis C without mention of hepatic coma Hepatocellular carcinoma Malignant neoplasm of liver, primary documented in this encounter Care Teams Insurance Licensing Supervisor Relationship Specialty Start Date End Date Darius Tamayo MD [address] [place] [id number] PCP - General Gastroenterology 12/22/24 documented as of this encounter
--- OUTSIDE RECORDS SUMMARY | 2025-03-22 12:51 | XMS_ITS | Encounter Summary ---
Author Organization [facility] Address [address] [place] [address] Care Team Providers Care Puncher And Fastener Name Role Phone Darius Tamayo MD Primary Care Provider [phone] Encounter Details Date Type Department Care Team (Late st Contact Info) Description 03/18/2025 Results Follow-Up [facility] Liver Transplant Services [address] [place] [address] Sabrina Dahl RN Social History Tobacco Use [...] Description 04/02/2025 10:00 AM EST Office Visit [facility] 4th floor Cardiology Medicine [address] [place] [address] Orthodontic Band Maker: James Reynoso MD [address] [place] [address] 04/22/2025 2:30 PM EST Follow-Up [facility] Transplant Services [address] [place] [address] Lauren Hancock MD [address] [place] [address] documented as of this encounter Visit Diagnoses Not on filedocumented in this encounter Care Teams Puncher And Fastener Relationship Specialty Start Date End Date Darius Tamayo MD [address] [place] [address] PCP - General Gastroenterology 12/22/24 documented as of this encounter
--- OUTSIDE RECORDS SUMMARY | 2025-03-22 12:51 | XMS_ITS | Encounter Summary ---
Author Organization [employer] Address [address] [place] [address] 7t [place] [address] Care Team Providers Care Project Manager Interior Design Name Role Phone Stephen Sudha WEI Primary Care Provider [phone] Everett Rojas MD Unavailable [phone] Reason for Visit * Reason Comments Med Refill Encounter Details Date Type Department Care Team ([facility] st Contact Info) Description 12/30/2023 Refill [facility] MEDICINE [address] [place] [address] Fabi Boudreaux MD [address] [place] [address] Lumbago of lumbar region with sciatica Social [...] Description 03/22/2025 2:00 PM EST Office Visit [address] [address] Sudha Mitchell ANP [address] [place] [address] 04/15/2025 10:30 AM EST Office Visit [address] [address] Sudha Mitchell ANP [address] [place] [address] documented as of this encounter Visit Diagnoses Diagnosis Lumbago of lumbar region with sciatica documented in this encounter Care Teams Project Manager Interior Design Relationship Specialty Start Date End Date Sudha Mitchell ANP [address] [place] [address] PCP - General Family Medicine 09/29/19 Everett Rojas MD [address] [place] [address] Drive 3rd [place] [address] Cardiology 04/21/24 documented as of this encounter
--- OUTSIDE RECORDS SUMMARY | 2025-03-22 12:51 | XMS_ITS | Encounter Summary ---
Author Organization [employer] Address [address] [facility] 7t [place] [address] Care Team Providers Care Science Faculty Member Name Role Phone Sudha Mitchell Primary Care Provider [phone] Everett Rojas MD Unavailable [phone] Reason for Visit * Reason Onset Date Comments pre op 03/18/2025 Encounter Details Date Type Department Care Team ([facility] st Contact Info) Description 03/18/2025 Telephone [facility] MEDICINE [address] [place] [address] Sudha Mitchell ANP [address] [place] [address] pre op Social History Tobacco Use Types Packs/Day Years [...] encounter Miscellaneous Notes * Telephone Encounter - Lars Buenrostro - 03/19/2025 3:21 PM EST Tc placed to pt . Agreed to pre-op on 04/15 with EMELYN Mitchell Detailed VM left to Facility , * Telephone Encounter - Kimmy Zhu - 03/18/2025 1:20 PM EST Date of Surgery: 04/22 Surgical procedure being done: Right middle finger trigger release and manipulation possible release of volar plate Type of anesthesia: general anesthesia Lab needed: Yes EKG: Yes Surgeon's name: Dr Lindy Rashid Facility name: [facility] Surgeon's office number: [phone] Surgeon's office fax number: [phone] Contact name (person you spoke with): Anh Honeycutt office note from surgeon requested: Yes Send Message to Lars Buenrostro documented in this encounter Plan of Treatment Upcoming Encounters Date Type Department Care Team ([facility] st Contact Info) Description 03/22/2025 2:00 PM EST Office Visit [address] [address] Sudha Mitchell ANP [address] [place] [address] 04/15/2025 10:30 AM EST Office Visit [facility] MEDICINE [address] [place] [address] Sudha Mitchell ANP [address] [place], [place] [phone] documented as of this encounter Visit Diagnoses Not on filedocumented in this encounter Additional Health Concerns Assessment Noted Time PHQ-9 Depression Total Score: 7 10/08/19 25 7:52 AM EDT documented as of this encounter Care Teams Science Faculty Member Relationship Specialty Start Date End Date Sudha Mitchell ANP [address] [place] [address] PCP - General Family Medicine 09/29/19 Everett Rojas MD [address] [place] [address] 3rd [place] [address] Cardiology 04/21/24 documented as of this encounter
--- OUTSIDE RECORDS SUMMARY | 2025-03-22 12:51 | XMS_ITS | Encounter Summary ---
Author Organization [employer] Address [address] [facility] 7t [place] [address] Care Team Providers Care Hospice Consultant Name Role Phone Sudha Mitchell Primary Care Provider [phone] Everett Rojas MD Unavailable [phone] Reason for Visit * Reason Onset Date Comments Pre-op Visit 12/20/2023 Encounter Details Date Type Department Care Team ([facility] st Contact Info) Description 12/20/2023 Telephone [facility] MEDICINE [address] [place] [address] Sudha Mitchell ANP [address] [place] [address] Pre-op Visit Social History Tobacco Use Types [...] [facility] Surgeon's office number: [phone] Ext [phone] Surgeon's office fax number: [phone] Contact name: Mara Last office note from surgeon requested: Yes documented in this encounter Plan of Treatment Upcoming Encounters Date Type Department Care Team (Late st Contact Info) Description 03/22/2025 2:00 PM EST Office Visit [address] [address] Sudha Mitchell ANP [address] [place] [address] 04/15/2025 10:30 AM EST Office Visit [address] [address] Sudha Mitchell ANP [address] [place] [address] documented as of this encounter Visit Diagnoses Not on filedocumented in this encounter Care Teams Hospice Consultant Relationship Specialty Start Date End Date Sudha Mitchell ANP [address] [place] [phone] PCP - General Family Medicine 09/29/19 Everett Rojas MD [address] [place] [address] 3rd [place] [address] Cardiology 04/21/24 documented as of this encounter
--- OUTSIDE RECORDS SUMMARY | 2025-03-22 12:51 | XMS_ITS | Encounter Summary ---
Author Organization [employer] Address [address] [facility] 7t [place] [address] Care Team Providers Care Supervisor [employer] Name Role Phone Sudha Mitchell Primary Care Provider [phone] Everett Rojas MD Unavailable Reason for Visit * Reason Onset Date Comments chart prep 03/19/2025 Encounter Details Date Type Department Care Team ([facility] st Contact Info) Description 03/19/2025 Telephone [facility] MEDICINE [address] [place] [address] Sudha Mitchell ANP [address] [place] [address] chart prep Social History Tobacco Use Types [...] encounter Miscellaneous Notes * Telephone Encounter - Jackeline Fuentes MA - 03/19/2025 9:28 AM EST Chart Prep Labs: done Images: done Referrals: complete Vaccines due: Covid, Hep A, RSV, and Zoster Screenings: colonoscopy Overdue care gaps: Not applicable documented in this encounter Plan of Treatment Upcoming Encounters Date Type Department Care Team (Late st Contact Info) Description 03/22/2025 2:00 PM EST Office Visit [address] [address] Sudha Mitchell ANP [address] [place] [address] 04/15/2025 10:30 AM EST Office Visit [address] [address] Sudha Mitchell ANP [address] [place] [address] documented as of this encounter Visit Diagnoses Not on filedocumented in this encounter Additional Health Concerns Assessment Noted Time PHQ-9 Depression Total Score: 7 10/08/19 25 7:52 AM EDT documented as of this encounter Care Teams Supervisor [employer] Relationship Specialty Start Date End Date Sudha Mitchell ANP [address] [place] [address] PCP - General Family Medicine 09/29/19 Everett Rojas MD [address] [facility] 3rd [place] [address] Cardiology 04/21/24 documented as of this encounter
--- OUTSIDE RECORDS SUMMARY | 2025-03-22 12:51 | XMS_ITS | Encounter Summary ---
Author Organization [employer] Address [address] [place] [address] 7t [place] [address] Care Team Providers Care Residential Nurse Name Role Phone Sudha Mitchell Primary Care Provider Everett Rojas MD Unavailable [phone] Reason for Visit * Reason Comments Med Refill Encounter Details Date Type Department Care Team (Late st Contact Info) Description 01/22/2023 Refill [facility] MEDICINE [address] [place] [phone] Sudha Mitchell ANP [address] [place], [place] [phone] Lumbago of lumbar region with sciatica Social [...] [facility] MEDICINE [address] [place] [phone] Sudha Mitchell ANP [address] [place], [place] [phone] 04/15/2025 10:30 AM EST Office Visit [facility] MEDICINE [address] [place] [address] Sudha Mitchell ANP [address] [place] [address] documented as of this encounter Visit Diagnoses Diagnosis Lumbago of lumbar region with sciatica documented in this encounter Care Teams Residential Nurse Relationship Specialty Start Date End Date Sudha Mitchell ANP [address] [place] [address] PCP - General Family Medicine 09/29/19 Everett Rojas MD [address] [place] [address] 3rd [place] [address] Cardiology 04/21/24 documented as of this encounter
--- OUTSIDE RECORDS SUMMARY | 2025-03-22 12:52 | XMS_ITS | Clinical Summary ---
Author Organization [employer] Address [address] [facility] [address] [place] [address] Care Team Providers Care Diamond Driller Name Role Phone Stephen Tom WEI Primary Care Provider [phone] Everett Rojas MD Unavailable [phone] Allergies Active Allergy Reactions Criticality Noted Date [...] eorder (will not trigger notification to Pharmacy)) Asmanex HFA 100 MCG/ACT aerosol INHALE 1 [...] each 1 025 2024 Discontinued predniSONE (Deltasone) 10 MG [...] in cirrhosis 04/16/2023 Overview (10/06/2024): EGDs via [facility] History of Helicobacter pylori infection 023 Overview (04/16/2023): tx'd 10/2021 via [facility] Cirrhosis of liver without ascites 04/16/2023 Overview (10/06/2024): compensated. thought to be d/t CARTWRIGHT vs. HCV. 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 11/25/2015 Benign essential hypertension 11/25/2015 Chronic hepatitis C (CMS/HCC) 11/25/2015 Moderate persistent asthma 11/25/2015 Resolved Problems Problem Noted Date Diagnosed Date Resolved Date Mild depression 10/07/2024 10/07/2024 Encounters Date Type Department Care Team Description 03/19/[address] [address] Tom Trujillo ANP chart prep 03/18/[address] [address] Tom Trujillo ANP pre op 03/17/2025 Orders Only [address] [address] Tom Trujillo ANP Acute gout of hand, unspecified cause, unspecified laterality (Primary Dx) 03/17/2025 Results Follow-Up [address] [address] Tom Trujillo ANP Sed Rate by Modified Westergren, C-reactive Protein, CBC auto differential, Uric acid 03/15/[address] [address] Tom Trujillo ANP 03/12/2025 Refill [facility] [address] [place] [address] Tom Trujillo ANP Moderate persistent asthma without complication 02/17/2025 Telephone [facility] [address] [place] [address] Nichole Lucio RN 02/16/2025 11:15 AM EDT Office Visit [address] [address] Tom Trujillo ANP Hepatocellular carcinoma (CMS/HCC) (HCC) (Primary Dx); Encounter for immunization; Elevated C-reactive protein (CRP); Pain in finger of right hand; Lumbago of lumbar region with sciatica 02/16/2025 Travel 02/15/[address] [address] Tom Trujillo ANP chart prep 02/09/2025 Telephone [facility] [address] [place] [address] Nichole Lucio RN 02/09/2025 Results Follow-Up [facility] [address] [place] [address] Anabela Carlson MD Uric acid 02/06/2025 Results Follow-Up [facility] [address] [place], [place] [phone] Anabela Carlson MD Comprehensive Metabolic Panel, CBC auto differential, Sed Rate by Modified Westergren, C-reactive Protein 02/06/2025 Orders Only [facility] [address] [place] [address] Anabela Carlson MD Pain in finger of right hand (Primary Dx) 02/05/2025 1:00 PM EDT Office Visit [facility] [address] [place] [phone] Anabela Carlson MD Pain in finger of right hand (Primary Dx) 02/05/2025 Travel 01/26/2025 Orders Only GENERIC EXTERNAL DATA DEPARTMENT Provider, Generic External Data 01/22/2025 Refill [facility] [address] [place] [address] Harris Castro MD Moderate persistent asthma without complication (Primary Dx) 01/22/2025 Telephone [facility] [address] [place] [phone] Tom Trujillo ANP Tracheostomy Tube Check 01/20/2025 6:00 PM EDT Office Visit [facility] [address] [place] [address] Tom Trujillo ANP 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ciatica (Primary Dx) 01/20/2025 Travel 01/19/2025 Results Follow-Up [facility] [address] [place] [address] Marcela Crook MD XR CERVICAL SPINE 3V 01/18/2025 1:45 PM EDT Office Visit [facility] [address] [place] [phone] Marcela Crook MD Neck pain (Primary Dx); Dietary counseling; Exercise counseling; Class 1 obesity due to excess calories with serious comorbidity and body mass index (BMI) of 31.0 to 31.9 in adult 01/18/2025 Travel 01/18/2025 Telephone [facility] [address] [place] [address] Tom Trujillo ANP Nurse Triage 01/13/2025 Travel 01/13/2025 Telephone [facility] [address] [place] [address] Nichole Lucio, MONAE 01/08/2025 Telephone [facility] [address] [place] [address] Nichole Lucio, MONAE 01/04/2025 Orders Only GENERIC EXTERNAL DATA DEPARTMENT Provider, Generic External Data 12/30/2024 Telephone [facility] [address] [place] [address] Nita Mendoza, enrobing machine corder Question 12/25/2024 Telephone [facility] [address] [place] [address] Connie Felipe, enrobing machine corder Question 12/25/2024 Orders Only [address] [address] Tom Trujillo ANP Atherosclerosis of tejon coronary artery of tejon heart with stable angina pectoris ([facility]) (Primary Dx) from Last 3 Months Immunizations [...] Description 03/22/2025 2:00 PM EST Office Visit [facility] [address] [place] [address] Tom Trujillo, ERIBERTO [address] [place] [address] 04/15/2025 10:30 AM EST Office Visit [facility] [address] [place] [address] Tom Trujillo ANP [address] [place], [place] [phone] Health Maintenance Due Date Last Done Comments [...] Colorectal Cancer Screening 10/10/2024 COVID-19 Vaccine ( season) 2025 08/16/2020, 07/19/2020 Alcohol/Substance Use Screening [...] 1:34 PM EST Elevated C-reactive protein (CRP) CYCLIC CITRULLINATED PEPTIDE (CCP) AB (IGG) Routine 03/15/2025 1:34 PM EST Elevated C-reactive [...] finger of right hand COVID-19 ID NOW ([facility]) Routine 01/26/2025 11:38 AM EDT INFLUENZA A B2 ID NOW ([facility]) Routine 01/26/2025 11:[address] CERVICAL [...] Blood Count 3.7(L) 4.8 - 10.8 X10*3/uL [facility] Red Blood Count 4.09(L) 4.20 - 5.50 X10*6/uL [facility] Hemoglobin 12.1 12.0 - 16.0 g/dl [facility] Hematocrit 37.1 37.0 - 47.0 % [facility] Mean Corpuscular Volume 90.7 80.0 - 98.0 fL [facility] Mean Corpuscular Hemoglobin 29.6 27.0 - 33.0 pg [facility] Mean Corpuscular HGB Conc 32.6 31.0 - 35.0 g/dl [facility] Red Cell Distribution Width 15.7 11.0 - 16.0 % [facility] Platelet Count 125(L) 160 - 400 X10*3/uL [facility] Mean Platelet Volume 9.7 9.4 - 12.3 fL [facility] Neutrophils Percent Auto 71.5 45 - 73 % [facility] Imm Gran Pct Auto 0.3 0.0 - 0.4 % [facility] Lymphocytes Percent Auto 18.7(L) 20 - 40 % [facility] Monocytes Percent Auto 8.4 2 - 11 % [facility] Eosinophils Percent Auto 0.8 0 - 4 % [facility] Basophils Percent Auto 0.3 0 - 2 % [facility] NRBC Pct Auto 0.0 0.0 - 0.2 /100WBC [facility] Neutrophils Absolute Auto 2.6 2.0 - 8.3 x10*3/uL [facility] Imm Gran Abs Auto 0.01 0.00 - 0.03 X10*3/uL [facility] Lymphocytes Absolute Auto 0.7(L) 1.2 - 4.9 X10*3/uL [facility] Monocytes Absolute Auto 0.3 0.1 - 1.2 X10*3/uL [facility] Eosinophils Absolute Auto 0.0 0.0 - 0.4 X10*3/uL [facility] Basophils Absolute Auto 0.0 0.0 - 0.2 X10*3/uL [facility] NRBC Abs Auto 0.000 0.0 - 0.012 X10*3/uL [facility] Blood Venous blood specimen / Unknown 03/15/2025 1:34 PM EST 03/15/2025 1:34 PM EST Tom Trujillo [facility] LAB BLOOD ORDERABLES Final Resul t Performing Organization Address [facility] [place] de Phone Number [facility] [address] [place] [phone] * Cyclic Citrullinated Peptide (CCP) Antibody (IgG) (03/15/2025 1:34 PM EST) Pathologist [facility] Cyclic Citrullinated Peptide <16 UNITS [facility] Comment:Reference RangeNegat christina: <20Weak Positive: 20-39Moderate Positive: 40-59Strong Positive: >59THIS TEST WAS PERFORMED AT:[employer] [address] [phone] GRIFFIN MD Blood Venous blood specimen / Unknown 03/15/2025 1:34 PM EST 03/15/2025 1:34 PM EST Tom Trujillo [facility] LAB BLOOD ORDERABLES Final Resul t Performing Organization Address [facility] [place] de Phone Number [facility] [address] [place] [phone] * (ABNORMAL) Sed Rate by Modified Stephanie (03/15/2025 1:34 PM EST) Only the most recent of2 resultswithin the time period is included. Erythrocyte Sedimentation Rate 60(H) 0 - 20 MM/HR [facility] Comment:Patients with polycy themia and many hemoglobin abnormalitiesmay have depressed sed rates whereas patients with anemiamay have elevated sed rates. Blood Venous blood specimen / Unknown 03/15/2025 1:34 PM EST 03/15/2025 1:34 PM EST Tom Trujillo [facility] LAB BLOOD ORDERABLES Final Resul t Performing Organization Address [facility] [place] Co de Phone Number [facility] [address] [place] [phone] * (ABNORMAL) C-reactive Protein (03/15/2025 1:34 PM EST) Only the most recent of2 resultswithin the time period is included. C Reactive Protein 1.64(H) < or = 0.50 mg/dL [facility] Blood Venous blood specimen / Unknown 03/15/2025 1:34 PM EST 03/15/2025 1:34 PM EST Tom Trujillo [facility] LAB BLOOD ORDERABLES Final Resul t Performing Organization Address [facility] Phone Number [facility] [address] [place] [phone] * (ABNORMAL) Uric acid (03/15/2025 1:34 PM EST) Only the most recent of2 resultswithin the time period is included. Uric Acid 6.8(H) 2.4 - 5.7 mg/dL [facility] Blood Venous blood specimen / Unknown 03/15/2025 1:34 PM EST 03/15/2025 1:34 PM EST Tom Trujillo [facility] LAB BLOOD ORDERABLES Final Resul t Performing Organization Address [facility] [place] de Phone Number [facility] [address] [place] [phone] * (ABNORMAL) Comprehensive Metabolic Panel (02/05/2025 2:16 PM EDT) Only the most recent of2 resultswithin the time period is included. Sodium 139 135 - 145 mmol/L [facility] Potassium 3.6 3.3 - 5.1 mmol/L [facility] Chloride 99 96 - 108 mmol/L [facility] Carbon Dioxide 33(H) 22 - 29 mmol/L [facility] Anion Gap 11(L) 12 - 20 [facility] Urea Nitrogen (BUN) 15 9 - 16 mg/dL [facility] Creatinine, Serum 0.74 0.5 - 1.4 mg/dL [facility] Estimated Glomerular Filt Rate >60 [facility] Comment:Chronic Kidney Disea se: Estimated GFR < 60 mL/min/1.58h9Hqnyhp Kidney Disease: Estimated GFR < 15 mL/min/1.73m2 Glucose 87 60 - 115 mg/dL [facility] Calcium 10.0 8.4 - 10.2 mg/dL [facility] Bilirubin, Total 0.9 0.0 - 1.0 mg/dL [facility] Aspartate Amino Transferase 43(H) 5 - 31 U/L [facility] Alanine Aminotransferase 54(H) 0 - 31 U/L [facility] Total Protein 7.6 6.5 - 8.0 g/dL [facility] Albumin Level 3.6 3.5 - 5.0 g/dL [facility] Alkaline Phosphatase 65 39 - 117 U/L [facility] Blood Venous blood specimen / Unknown 02/05/2025 2:16 PM EDT 02/05/2025 3:57 PM EDT us Anabela Carlson MD LAB BLOOD ORDERABLES Final Re sult [facility] [address] [place], [place] [phone] * XR Hand 3+ Views Right (02/05/2025 1:51 PM EDT) Anatomical Region Laterality Modality Upper Extremities, Hand Right Radiogra phic Imaging 02/05/2025 1:51 PM EDT Narrative 02/05/2025 2:05 PM EDT [address] [address] XRay Report Signed Patient: Walt Rajan MR #: [id number] : 1955 Acct:[id number] Age/Sex: 69 / F ADM Date: 02/05/25 Loc: HO.PATYCX Attending Dr: Anabela Carlson MD Ordering Physician: Anabela Carlson MD Date of Service: 02/05/25 Procedure(s): XR hand RT min 3V Accession Number(s): [id number] cc: Anabela Carlson MD Reason for Exam: [...] 02/05/25 1402 DD/ 1351 TD/TT: 02/05/25 1358 Pattern Painter: Procedure Note Donotuseinterpreter, Image - 02/05/2025 [facility] [address] [place] [address] XRay Report Signed Patient: Sid RajanR #: [id number] : 1955cct:[id number] Age/Sex: 69 / FADM Date: 02/05/25 Loc: HOPINACX Attending Dr: Anabela Carlson MD Ordering Physician: Anabela Carlson MD Date of Service: 02/05/25 Procedure(s): XR hand RT min 3V Accession Number(s): [id number] cc: Anabela Carlson MD Reason for Exam: [...] 02/05/25 1402 DD/ 1351 TD/TT: 02/05/25 1358 Pattern Painter: Anabela Carlson MD IMG XR PROCEDURES Final Resul t * Influenza A B2 ID NOW (Kim) (01/26/2025 11:38 AM EDT) IDNOW SERIAL# [id number] [facility] Influenza A Negative Negative [facility] Influenza B2 Negative Negative [facility] Influenza A B2 Note See Note [facility] Comment:The Kim ID NOW In [...] GENERAL ORDERABLES Final Result Performing Organization Address [facility] [place] Co de Phone Number [facility] [address] [place] [phone] * COVID-19 ID NOW (KIM) (01/26/2025 11:38 AM EDT) IDNOW SERIAL# [id number] [facility] COVID-19 TEST Negative Negative [facility] COVID-19 NOTE See Note [facility] Comment: Results are for the identification of SARS-CoV2 RNA. TheSARS-CoV2 RNA is generally detectable in respiratory samplesduring the acute phase of infection. Positive results areindicative of the presence of SARS-CoV-2 RNA; clinicalcorrelation with patient history and other diagnosticinformation is necessary to determine patient infectionstatus. Positive results do not rule out bacterial infectionor co- infection with other viruses.Testing facilities within the [facility] and [facility] are required to report all positive [...] use by authorized laboratories.Testing performed on the Kim ID NOW utilizing NAAT. 01/26/2025 11:3 8 AM EDT 01/26/2025 11:41 AM EDT Generic External Data Provider LAB MOLECULAR [facility] ORDERABLES Final Result Performing Organization Address City/[facility] Co de Phone Number [facility] [address] [place] [phone] * CT Cervical Spine w/o Contrast (01/26/2025 11:11 AM EDT) Anatomical Region Laterality Modality Spine, C-spine Computed Tomogra phy 01/26/2025 11:1 1 AM EDT Narrative 01/26/2025 11:51 AM EDT [address] [address] [address] Scan Report Signed Patient: Walt Rajan MR #: [id number] : 1955 Acct:[id number] Age/Sex: 69 / F ADM Date: 01/26/25 Loc: HO.ED Attending Dr: Ordering Physician: Molly Mata Date of Service: 01/26/25 Procedure(s): CT cervical spine wo IV con Accession Number(s): [id number] cc: Molly Mata; TOM TRUJILLO NP Report Number: [id number]: Total DLP = 277.00 mGy-cm Reason for [...] 01/26/25 1148 DD/ 1111 TD/TT: 01/26/25 1134 Pattern Painter: Procedure Note Donotuseinterpreter, Image - 01/26/[address] [place] [address] [address] Scan Report Signed Patient: Kenyon Rajan #: [id number] : 4Acct:[id number] Age/Sex: 69 / FADM Date: 01/26/25 Loc: HO.ED Attending Dr: Ordering Physician: Molly Mata Date of Service: 01/26/25 Procedure(s): CT cervical spine wo IV con Accession Number(s): [id number] cc: Molly Mata; TOM TRUJILLO NP Report Number: [id number]: Total DLP = 277.00 mGy-cm Reason for [...] 01/26/25 1148 DD/ 1111 TD/TT: 01/26/25 1134 Pattern Painter: us [facility] External Provider IMG CT PROCEDURES Edited Result - Final * CT Head w/o Contrast (01/26/2025 11:11 AM EDT) Anatomical Region Laterality Modality Head, Neck Computed Tomogra phy 01/26/2025 11:1 1 AM EDT Narrative 01/26/2025 11:44 AM EDT [address] [address] [address] Scan Report Signed Patient: Walt Rajan MR #: [id number] : 1955 Acct:[id number] Age/Sex: 69 / F ADM Date: 01/26/25 Loc: HO.ED Attending Dr: Ordering Physician: Molly Mata Date of Service: 01/26/25 Procedure(s): CT head/brain wo IV con Accession Number(s): [id number] cc: Molly Mata; TOM TRUJILLO NP Report Number: [id number]: Total DLP = 593.00 mGy-cm Reason for [...] 01/26/25 1139 DD/ 1111 TD/TT: 01/26/25 1134 Pattern Painter: Procedure Note Donotuseinterpreter, Image - 01/26/[address] [address] [address] Scan Report Signed Patient: Kenyon Raajn #: [id number] : 4Acct:[id number] Age/Sex: 69 / FADM Date: 01/26/25 Loc: HO.ED Attending Dr: Ordering Physician: Molly Mata Date of Service: 01/26/25 Procedure(s): CT head/brain wo IV con Accession Number(s): [id number] cc: Molly Mata; TOM TRUJILLO NP Report Number: [id number]: Total DLP = 593.00 mGy-cm Reason for [...] 01/26/25 1139 DD/ 1111 TD/TT: 01/26/25 1134 Pattern Painter: [facility] External Provider IMG CT PROCEDURES Edited Result - Final * XR CERVICAL SPINE 3V (01/18/2025 3:10 PM EDT) Anatomical Region Laterality Modality Abdomen Radiographic Dawn ging 01/18/2025 3:10 PM EDT Narrative 01/18/2025 3:25 PM EDT [address] [address] XRay Report Signed Patient: Walt Rajan MR #: [id number] : 1955 Acct:[id number] Age/Sex: 69 / F ADM Date: 01/18/25 Loc: HO.HHCX Attending Dr: Marcela Crook MD Ordering Physician: Marcela Crook MD Date of Service: 01/18/25 Procedure(s): XR cervical spine 3V Accession Number(s): [id number] cc: TOM TRUJILLO KINDERGARTEN TUTOR; Marcela Crook MD Reason for Exam: neck [...] 01/18/25 1522 DD/ 1510 TD/TT: 01/18/25 1513 Pattern Painter: Procedure Note Donotuseinterpreter, Image - 01/18/2025 [place] [address] XRay Report Signed Patient: Kenyon Rajan #: [id number] : 1955cct:[id number] Age/Sex: 69 / FADM Date: 01/18/25 Loc: HO.HHCX Attending Dr: Marcela Crook MD Ordering Physician: Marcela Crook MD Date of Service: 01/18/25 Procedure(s): XR cervical spine 3V Accession Number(s): [id number] cc: TOM RTUJILLO KINDERGARTEN TUTOR; Marcela Crook MD Reason for Exam: neck [...] 01/18/25 1522 DD/ 1510 TD/TT: 01/18/25 1513 Pattern Painter: us Marcela Crook MD IMG XR PROCEDURES Edited Result - Final * TSH with Reflex to Free T4 (01/04/2025 1:20 PM EDT) TSH reflex Free T4 1.86 0.32 - 4.0 uIU/mL [facility] 01/04/2025 1:20 PM EDT 01/04/2025 4:05 PM EDT Generic External Data Provider LAB BLOOD ORDERAB LES Final Result Performing Organization Address City/[facility]/ZIP Co de Phone Number [facility] [address] [place] [phone] * Hepatic Function Panel (01/04/2025 1:20 PM EDT) Pathologist [facility] Bilirubin, Direct 0.3 0.0 - 0.5 mg/dL [facility] 01/04/2025 1:20 PM EDT 01/04/2025 4:05 PM EDT Generic External Data Provider LAB BLOOD ORDERAB LES Final Result Performing Organization Address City/[facility]/ZIP Co de Phone Number [facility] [address] [place] [phone] * (ABNORMAL) Lipid Panel, Standard (01/04/2025 1:20 PM EDT) Triglycerides 104 <150 mg/dL [facility] Comment:Desirable Triglyceri de: less than 150 mg/dLBorderline High Triglyceride 150-199 mg/dLHigh Triglyceride: 200-499 mg/dLVery High Triglyceride: greater than or equal to 5OO mg/dL Cholesterol 122 <200 mg/dL [facility] Comment:Desirable Cholestero l: less than 200 mg/dLBorderline High Cholesterol: 200-239 mg/dLHigh Cholesterol: greater than 239 mg/dL LDL Cholesterol Calculated 70 <100 mg/dL [facility] Comment:Desirable LDL: less than 100 mg/dLNear Optimal/Above Optimal LDL: 110- 129 mg/dLBorderline High LDL: 130-159 mg/dLHigh LDL: 160-189 mg/dLVery High LDL: greater than or equal to 190 mg/dL HDL Cholesterol 32(L) >40 mg/dL [facility] Comment:Desirable HDL: great er than 40 mg/dL Note: This HDL assay may give artificially low results in patients with liver disease. 01/04/2025 1:20 PM EDT 01/04/2025 4:05 PM EDT us Generic External Data Provider LAB BLOOD ORDERAB LES Final Result [facility] [address] [place] [address] [phone] * BI Mammogram Screening Tomosynthesis Bilateral (10/26/2024 1:20 PM EDT) Anatomical Region Laterality Modality Breast Bilateral Mammography 10/26/2024 1:20 PM EDT Narrative 11/01/2024 2:28 PM EDT [facility] [address] [place] [address] Mammography Report Signed Patient: Walt Rajan MR #: [id number] : 1955 Acct:[id number] Age/Sex: 69 / F ADM Date: 10/26/24 Loc: HO.MAMMO Attending Dr: Tom Trujillo NP Ordering Physician: TOM TRUJILLO NP Results: 1Negative Date of Service: 10/26/24 Follow Up: 1 Year From Orig inal Mammogram Procedure(s): MM tomosynthesis screening BI Accession Number(s): [id number] cc: TOM TRUJILLO NP EXAMINATION: MM SCREENING [...] 11/01/24 1425 DD/ 1320 TD/TT: 10/26/24 1338 Pattern Painter: Procedure Note Donotuseinterpreter, Image - 11/01/2024 [facility] [address] [place] [address] Mammography Report Signed Patient: Kenyon Rajan #: [id number] : 4Acct:[id number] Age/Sex: 69 / FADM Date: 10/26/24 Loc: LEE Attending Dr: Tom Trujillo KINDERGARTEN TUTOR Ordering Physician: TOM TRUJILLO NPResults: 1Negative Date of Service: 10/26/24Follow Up: 1 Year From Orig inal Mammogram Procedure(s): MM tomosynthesis screening BI Accession Number(s): [id number] cc: TOM TRUJILLO NP EXAMINATION: MM SCREENING [...] 11/01/24 1425 DD/ 1320 TD/TT: 10/26/24 1338 Pattern Painter: Tom Trujillo ANP IMG BI PROCEDURES Edited Result - Final * Hm Colonoscopy (10/10/2021) Colonoscopy Normal Normal Historical Provider HEALTH MAINTENANCE Final Result from Last 3 Months or Most Recently Relevant to Health Maintenance Insurance [employer] STANDARD MEDICARE Care Teams Diamond Driller Relationship Specialty Start Date End Date Tom Trujillo ANP [address] [place] [address] PCP - General Family Medicine 09/29/19 Everett Rojas MD [address] [place] [address] 3rd Floor [place], [place] Cardiology 04/21/24
--- OUTSIDE RECORDS SUMMARY | 2025-03-22 12:52 | XMS_ITS | Encounter Summary ---
Author Organization [facility] Address [address] [place] [address] Care Team Providers Care Satellite Installer Name Role Phone Darius Tamayo MD Primary Care Provider Encounter Details Date Type Department Care Team (Late st Contact Info) Description 03/02/2025 Results Follow-Up [facility] [address] [place] [id number] Sabrina Dahl RN Social History Tobacco Use [...] Description 04/02/2025 10:00 AM EST Office Visit [facility] Building 4th floor Cardiology Medicine [address] [place] [address] Graduate Assistant Athletic Trainer: James Reynoso MD [address] [place] [phone] 04/22/2025 2:30 PM EST Follow-Up [facility] [address] [place] [id number] Lauren Hancock MD [address] [place] [phone] documented as of this encounter Visit Diagnoses Not on filedocumented in this encounter Care Teams Satellite Installer Relationship Specialty Start Date End Date Darius Tamayo MD [address] [place] [id number] PCP - General Gastroenterology 12/22/24 documented as of this encounter
--- OUTSIDE RECORDS SUMMARY | 2025-03-22 12:52 | XMS_ITS | Encounter Summary ---
Author Organization [facility] Address [address] [place] [address] Care Team Providers Care Drafter Refrigeration Name Role Phone Darius Tamayo MD Primary Care Provider [phone] Encounter Details Date Type Department Care Team (Late st Contact Info) Description 12/22/2024 Education [facility] Transplant Department [address] [place] [address] Sabrina Dahl RN Social History Tobacco Use [...] Description 04/02/2025 10:00 AM EST Office Visit [facility] Building 4th floor Cardiology Medicine [address] [place] [address] Local Superintendent: James Reynoso MD [address] [place] [phone] 04/22/2025 2:30 PM EST Follow-Up [facility] [address] [place] [address] Lauren Hancock MD [address] [place] [phone] documented as of this encounter Visit Diagnoses Not on filedocumented in this encounter Care Teams Drafter Refrigeration Relationship Specialty Start Date End Date Darius Tamayo MD [address] [place] [phone] PCP - General Gastroenterology 12/22/24 documented as of this encounter
--- OUTSIDE RECORDS SUMMARY | 2025-03-22 12:52 | XMS_ITS | Clinical Summary ---
Author Organization [facility] Address [address] [place] [address] Care Team Providers Care Vending Machine Repairer Name Role Phone Darius Tamayo MD Primary Care Provider [phone] Allergies Active Allergy Reactions Criticality Noted Date [...] d/t CARTWRIGHT vs. HCV. [place] [facility] and had abd MRI to eval liver lesion 07/2022. 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 Overview (02/12/2025): [place] [facility] Paroxysmal atrial fibrillation 02/07/2016 Benign essential hypertension 11/25/2015 Chronic hepatitis C 11/25/2015 Encounters Date Type Department Care Team Description 03/18/2025 Results Follow-Up [facility] [address] [place] [address] Sabrina Dahl, RN 03/18/2025 Orders Only [facility] [address] [place] [address] 96926 Sabrina Dahl, RN Encounter for pre-transplant evaluation for liver transplant (Primary Dx); Chronic hepatitis C with cirrhosis ; Hepatocellular carcinoma 03/08/2025 Orders Only [facility] [address] [place] [address] 8[address]14 Provider, MD Cem 03/02/2025 Orders Only [facility] [address] [place] [address] 15941 Rebecca Workman NP Hepatocellular carcinoma (Primary Dx); Awaiting liver transplant 03/02/2025 Results Follow-Up [facility] [address] [place] [address] 07539 Sabrina Dahl, MONAE 03/02/2025 Results Follow-Up [facility] [address] [place] [address] Sabrina Dahl RN 03/02/2025 Documentation [facility] [address] [place] [address] 10251 Nanette Bowen, MONAE ABO Dual Validation 03/02/2025 Documentation [facility] [address] [place] [address] [phone] Sabrina Dahl RN ABO Dual Validation 03/02/2025 External Result Entry [facility] [address] [place] [address] 71751 Sabrina Dahl, MONAE 03/02/2025 Orders Only [facility] [address] [place] [address] 03669 ProviderCem MD 03/02/2025 Abstract [facility] [address] [place] [address] 94902 Lauren Hancock MD 03/01/2025 Telephone [facility] [address] [place] [address] 57691 Sabrina Dahl, RN 02/26/2025 Orders Only [facility] [address] [place] [address] 15622 Sabrina Dahl, RN Encounter for pre-transplant evaluation for liver transplant (Primary Dx) 02/15/2025 Telephone [facility] [address] [place] [address] 70026 Sabrina Dahl RN 01/28/2025 Orders Only [facility] [address] [place] [address] 78608 Monica Suresh MD 01/22/2025 Refill [facility] [address] [place] [address] 24437 Lauren Hancock MD 01/20/2025 Refill [facility] [address] [place] [address] 79612 Lauren Hancock MD 01/18/2025 Telephone [facility] [address] [place] [address] [phone] Sabrina Dahl RN Care Coordination 01/15/2025 3:15 PM EDT Office Visit [facility] [address] [place] [address] [phone] Nikko Pagan MD Metabolic dysfunction-associat ed steatohepatitis (MASH) (Primary Dx); Chronic hepatitis C with cirrhosis (HCC); Portal hypertension (HCC); HCC (hepatocellular carcinoma) (HCC); Atrial fib/flutter, transient (HCC) 01/15/2025 2:30 PM EDT Office Visit [facility] [address] [place] [address] [phone] Shaila Posey MD Encounter for pre-transplant evaluation for chronic liver disease (Primary Dx); Metabolic dysfunction-associat ed steatohepatitis (MASH); Hepatocellular carcinoma (HCC); Chronic hepatitis C without hepatic coma (HCC); Screening examination for infectious disease; Positive CMV IgG serology; EBV seropositivity; Immune to hepatitis B; Immune to hepatitis A 01/15/2025 1:45 PM EDT Nutrition [facility] [address] [place] [phone] Encounter for pre-transplant evaluation for liver transplant (Primary Dx) 01/15/2025 1:00 PM EDT Office Visit [facility] [address] [place] [address] Mihai Blank MD Encounter for pre-transplant evaluation for chronic liver disease (Primary Dx) 01/15/2025 12:15 PM EDT Social Work [facility] [address] [place] [address] Sandra Victor, [facility] 01/15/2025 11:45 AM EDT Office Visit [facility] [address] [place] [address] Da Robb, MONAE Encounter for pre-transplant evaluation for liver transplant 01/15/2025 10:30 AM EDT - 01/15/2025 11:59 PM EDT Hospital Encounter [facility] Cardiac Ultrasound [address] [place] [address] Encounter for pre-transplant evaluation for liver transplant Discharge Disposition: Home or Self Care (01) 01/15/2025 Orders Only [facility] [address] [place] [address] 63839 Sabrina Dahl RN Encounter for pre-transplant evaluation for liver transplant (Primary Dx) 01/07/2025 Orders Only [facility] [address] [place] [address] 9[address] Nanette Bowen, MONAE Encounter for pre-transplant evaluation for liver transplant (Primary Dx); Pre-procedural cardiovascular examination; Mild CAD; Coronary artery calcification seen on CT scan 01/07/2025 Results Follow-Up [facility] [address] [place] [address] Regional Operations Director: Lauren Hernandez MD 01/06/2025 12:18 PM EDT - 01/06/2025 11:59 PM EDT Hospital Encounter [address] [address] Lauren Hancock MD Encounter for pre-transplant evaluation for liver transplant; Metabolic dysfunction-associat ed steatohepatitis (MASH) Discharge Disposition: Home or Self Care (01) 12/25/2024 Results Follow-Up [facility] [address] [place] [address] [phone] Sabrina Dahl RN 12/22/2024 1:00 PM EDT Office Visit [facility] [address] [place] [address] [phone] Lauren Hancock MD Hepatocellular carcinoma (HCC) (Primary Dx); Metabolic dysfunction-associat ed steatohepatitis (MASH); Chronic hepatitis C without hepatic coma (HCC); 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) 12/22/2024 12:00 PM EDT Evaluation [facility] [address] [place] [address] 29899 Sabrina Dahl RN Encounter for pre-transplant evaluation for liver transplant (Primary Dx) 12/22/2024 Education [facility] [address] [place] [address] 27499 Sabrina Dahl RN 12/22/2024 Orders Only [facility] [address] [place] [address] 48882 Sabrina Dahl RN Encounter for pre-transplant evaluation for liver transplant (Primary Dx); Metabolic dysfunction-associat ed steatohepatitis (MASH) 12/22/2024 Orders Only [facility] [address] [place] [address] 47311 Sabrina Dahl RN Encounter for pre-transplant evaluation [...] Description 04/02/2025 10:00 AM EST Office Visit [facility] Building 4th floor Cardiology Medicine [address] [place] [address] Regional Operations Director: James Reynoso MD [address] [place] [address] 04/22/2025 2:30 PM EST Follow-Up [facility] [address] [place] [address] Lauren Hancock MD [address] [place] [address] Health Maintenance Due Date Last Done Comments [...] CT Lung Cancer Screening (Baseline) 11/18/2025 11/18/2024 Fall Risk Screening 01/15/2026 01/15/2025 Basic Metabolic Panel 02/05/2026 02/05/2025 , 01/04/2025, 12/22/2024, Additional history exists DTaP,Tdap,and Td Vaccines (3 - Td or Tdap) 06/27/2028 06/27/2018, 05/08/2016 Pneumococcal Vaccine: 50+ Years Completed 11/28/2021, 11/17/2020, 05/08/2016 Osteoporosis Screening Completed 06/09/2024, 2024 Hepatitis B Vaccines Completed 08/24/2024, 02/25/2024, 01/28/2024, Additional history exists Alcohol/Substance Use Screening Completed Influenza Vaccine Completed 02/16/2025, , 06/15/2019, Additional history exists Procedures * Due to [place] state law, this organization might not be sharing negative HIV tests. Procedure Name Priority Date/Time Associated Diagnosis Comments TYPE AND SCREEN - TRANSPLANT MANUAL ABSTRACTION Routine 03/01/2025 1:58 PM EDT LAB - SCANNED Routine 03/01/2025 11:14 AM EDT LIVER PRE EXTERNAL PANEL Routine 03/01/2025 10:35 AM EDT IMAGING - SCANNED Routine 03/01/2025 10: 01 AM EDT TYPE AND SCREEN - TRANSPLANT [...] for liver transplant Metabolic dysfunction-associated steatohepatitis (MASH) IMAGING - SCANNED Routine 12/28/2024 10: 00 AM EDT COMPREHENSIVE DRUG SCREEN, URINE Routine 12/22/2024 2:34 PM EDT Encounter for pre-transplant evaluation for liver transplant HEPATITIS C RNA, QUANTITATIVE, PCR Routine 12/22/2024 2:14 PM EDT Encounter for pre-transplant evaluation for liver transplant ETHANOL Routine 12/22/2024 2:14 PM EDT Encounter for pre-transplant evaluation for liver transplant FNBWB-3-XHFMUCSWWQR (AAT) PHENOTYPE Routine 12/22/2024 2:14 PM EDT Encounter for pre-transplant evaluation for liver transplant HEPATOCELLULAR CARCINOMA PANEL -[id number] Routine 12/22/2024 2:14 PM EDT Encounter for pre-transplant evaluation for liver transplant STEPHON SCREEN, IFA, W/REFLEX TO TITER & PATTERN Routine 12/22/2024 2:14 PM EDT Encounter for pre-transplant evaluation for liver transplant BILIRUBIN, DIRECT Routine 12/22/2024 2:1 4 PM EDT Encounter for pre-transplant evaluation for liver transplant CYSTATIN C WITH GLOMERULAR FILTRATION RATE, ESTIMATED (EGFR)-[id number] Routine 12/22/2024 2:14 PM EDT Encounter for [...] for pre-transplant evaluation for liver transplant PHOSPHATIDYLETHANOL-AR [id number] Routine 12/22/2024 2:14 PM EDT Encounter for [...] for liver transplant QUANTIFERON-TB GOLD PLUS, 1 [id number] Routine 12/22/2024 2:14 PM EDT Encounter for pre-transplant evaluation for liver transplant HIV-1/2 ANTIGEN/ANTIBODIES 4TH GENERATION W/REFLEX Routine 12/22/2024 2:14 PM EDT Encounter for pre-transplant evaluation for liver transplant RPR (DIAGNOSIS) W/REFLEX TO TITER & TPPA [id number] Routine 12/22/2024 2:14 PM EDT Encounter for [...] for pre-transplant evaluation for liver transplant ZINC, PLASMA/[id number] Routine 12/22/2024 2:14 PM EDT Encounter for pre-transplant evaluation for liver transplant from Last 3 Months Results * Due to [place] state law, this organization might not be sharing negative HIV tests. * TYPE AND SCREEN - TRANSPLANT MANUAL ABSTRACTION (03/01/2025 1:58 PM EDT) Only the most recent of2 resultswithin the time period is included. us Unknown Provider LAB HISTORICAL RESULTS Final Result * LAB - SCANNED (03/01/2025 11:14 AM EDT) us Unknown Provider LAB HISTORICAL RESULTS Final Result * LIVER PRE EXTERNAL PANEL (03/01/2025 10:35 AM EDT) Sodium 144 mmol/L [facility] Potassium 3.4 [facility] Chloride 103 [facility] Carbon Dioxide 31 [facility] Glucose 86 [facility] BUN 22 mg/dL [facility] Creatinine 0.77 mg/dL [facility] Calcium 9.5 mg/dL [facility] Total Protein 6.9 g/dL [facility] Albumin 3.8 g/dL [facility] Bilirubin, Total 1.1 mg/dL [facility] Alkaline Phosphatase 40 U/L [facility] AST 37 U/L [facility] ALT 55 U/L [facility] WBC 4.1 10*3/uL [facility] Hgb 12.6 [facility] Hematocrit 40.0 % [facility] Platelets 105 10*3/uL [facility] INR 1.50 [facility] 03/01/2025 10:3 5 AM EDT Lauren Hancock MD LAB BLOOD ORDERABLES Fin al Result [facility] [address] [place] [address] * IMAGING - SCANNED (03/01/2025 10:01 AM EDT) Only the most recent of2 resultswithin the time period is included. Anatomical Region Laterality Modality Other us Unknown Provider SCANNED PROCEDURES Final Res ult * ECG 12 lead (01/15/2025 1:32 PM EDT) Ventricular Rate EKG 55 BPM MUSE EKG Atrial Rate 55 BPM MUSE EKG NV Interval 152 ms MUSE EKG QRS Interval 92 ms MUSE EKG QT Interval 432 ms MUSE EKG QTC Interval 413 ms MUSE EKG P Wendell 51 degrees MUSE EKG R Wendell 21 degrees MUSE EKG T Wave Wendell 1 degrees MUSE EKG 01/15/2025 1:32 PM EDT 01/19/2025 10:59 PM EDT Impressions MUSE EKG - 01/19/2025 10:59 PM EDT POOR DATA QUALITY, INTERPRETATION MAY BE ADVERSELY AFFECTED SINUS BRADYCARDIA with pvcs and fusion complexes OTHERWISE NORMAL ECG NO PREVIOUS ECGS AVAILABLE Confirmed by Oswaldo Landa ([id number]) on 01/19/2025 10:59:21 PM Narrative Procedure Note Oswaldo Landa MD - 01/19/2025 IMPRESSION: POOR DATA QUALITY, INTERPRETATION MAY BE ADVERSELY AFFECTED SINUS BRADYCARDIA with pvcs and fusion complexes OTHERWISE NORMAL ECG NO PREVIOUS ECGS AVAILABLE Confirmed by Oswaldo Landa ([id number]) on 01/19/2025 10:59:21 PM Lauren Hancock MD [...] Doppler. Myocardial deformation imaging was performed using [employer]. During the study the apical, parasternal, subcostal [...] cancer. For comments and reference, please see [https://doi.org/10.1148/radiol.2196994456]. For information about nodule measurements and reporting, please see [https://pubs.rsna.org/doi/10.1148/radiol.2031401610]. I, Mike Riley, have reviewed the examination and concur with the findings as reported or so edited. Trainee: Kojo Nevarez If this radiology report contains a blank impression section, it is an incomplete radiology report. Please contact the interpreting radiologist or applicable radiology division as soon as possible to obtain the completed interpretation. Workstation ID: [id number] Narrative 01/07/2025 5:[address] CARDIAC [...] will not be ordered. Resulting Agency Comment [id number] Procedure Note Mike Riley MD - 01/07/2025 CT CARDIAC CORONARY AND CALCIUM SCORING, CT LIMITED FOLLOW UP [facility] Indication: CAD screening, intermediate CAD risk, not treadmill xmpmgmrcvM25.818 - I10 - Encounter for other preprocedural [...] lung cancer. For comments and reference, please see[https://doi.org/10.1148/radiol.2907266454]. For information about nodulemeasurements and reporting, please see[https://pubs.rsna.org/doi/10.1148/radiol.9339488178]. IMike, have reviewed the examination and concur with thefindings as reported or so edited. Trainee: Kojo Nevarez If this radiology report contains a blank impression section, it is anincomplete radiology report. Please contact the interpreting radiologistor applicable radiology division as soon as possible to obtain thecompleted interpretation. Workstation ID: [id number] Lauren Hancock MD IM CT PROCEDURES Final [...] cancer. For comments and reference, please see [https://doi.org/10.1148/radiol.0821591007]. For information about nodule measurements and reporting, please see [https://pubs.rsna.org/doi/10.1148/radiol.2683343766]. Mike Lauren, have reviewed the examination and concur with the findings as reported or so edited. Trainee: Kojo Nevarez If this radiology report contains a blank impression section, it is an incomplete radiology report. Please contact the interpreting radiologist or applicable radiology division as soon as possible to obtain the completed interpretation. Workstation ID: [id number] Narrative 01/07/2025 5:[address] CARDIAC [...] will not be ordered. Resulting Agency Comment [id number] Procedure Note Mike Riley MD - 01/07/2025 CT CARDIAC CORONARY AND CALCIUM SCORING, CT LIMITED FOLLOW UP [facility] Indication: CAD screening, intermediate CAD risk, not treadmill kyzcmugedW66.818 - I10 - Encounter for other preprocedural [...] lung cancer. For comments and reference, please see[https://doi.org/10.1148/radiol.3276276084]. For information about nodulemeasurements and reporting, please see[https://pubs.rsna.org/doi/10.1148/radiol.4799255420]. I, Mike Riley, have reviewed the examination and concur with thefindings as reported or so edited. Trainee: Kojo Nevarez If this radiology report contains a blank impression section, it is anincomplete radiology report. Please contact the interpreting radiologistor applicable radiology division as soon as possible to obtain thecompleted interpretation. Workstation ID: [id number] us Lauren Hancock MD IMG CT PROCEDURES Final Result * Comprehensive Drug Panel, Urine (12/22/2024 2:34 PM EDT) [facility] Comprehensive Drug Screen Urine DRUGS DETECTED 12/22/2024 9:16 PM EDT [employer] [facility] Comment: CAFFEINE METOPROLOL Urine Voided urine specimen / Unknown Non-Blood Collection / Unknown 12/22/2024 2:34 PM EDT 12/22/2024 2:42 PM EDT Narrative [facility] - 12/22/2024 9:16 PM EDT [facility] Received Date:[id number] us Lauren Hancock MD LAB URINE ORDERABLES Fin al Result [facility] [address] [place] [address] 3rd Floor, [place] [address], [place] [phone] [employer] [address] 3rd Floor, [place] [address], [place] [phone] * (ABNORMAL) Cystatin C with Glomerular Filtration Rate, Estimated (eGFR) (12/22/2024 2:14 PM EDT) Cystatin C 1.58(H) 0.52 - 1.10 mg/L 12/24/2024 12:17 PM EDT [facility] ([facility]) eGFR Non- 38(L) >=60 NA 12/24/2024 12:17 PM EDT [facility] ([place]) Comment: REFERENCE RANGE:>=60 mL/min/1.73mE2 Blood Structure of peripheral vein / Unknown Venipuncture / Unknown 12/22/2024 2:14 PM EDT 12/22/2024 2:53 PM EDT Narrative [facility] ChengFISHER) - 12/24/2024 12:17 PM EDT [facility] Received Date: Lauren Hancock MD LAB BLOOD ORDERABLES Fin al Result [facility] CARDONA) [address] [place], [place] , [place] * (ABNORMAL) Hepatocellular Carcinoma Panel (Includes AFP, AFP-L3 & DCP) (12/22/2024 2:14 PM EDT) AFP 31.3(H) 1.6 - 4.5 ng/mL 12/29/2024 6:23 PM EDT [facility] AFP-L3 3.9 0.5 - 9.9 % 12/29/2024 6:23 PM EDT [facility] Comment: The micro-total analysis system ([facility]) employs microchip capillary electrophoresis to quantitatively measure AFP and AFP-L3% by immunochemical techniques. The assay principle involves DNA-coupled antibodies and dye labeled antibodies, which react with proteins in liquid phase within the microchannels. Both analytes are quantified using laser-induced fluorescence. Instrument and associated reagents are supplied by [employer] [place], [place], [place]. Patients with elevated AFP-L3% values (>=10%) [...] can potentially cause an anomalous result. The [employer] System has been formulated to minimize the [...] or kits cannot be used interchangeably. DCP (Hsd-Udvml-Tvvmaji- Prothrombin) 0.2 <7.5 ng/mL 12/29/2024 6:23 PM EDT [facility] Comment: [email or web address] DCP Immunological Test System is a clinical device used to quantitatively measure, by immunochemical technique, gng-mbhzg-fwvjnhx-prothrombin (DCP) in serum. The assay uses DNA-coupled antibodies and dye labeled antibodies, which react with proteins in liquid phase within the microchannels. Both analytes are quantified using laser-induced fluorescence. Instrument and associated reagents are supplied by [employer] [place], [place], [place]. DCP levels increase in patients with [...] interference potentially causing an anomalous result. The [facility] DCP has been formulated to minimize the [...] EDT 12/22/2024 2:52 PM EDT Narrative [facility] CAN[facility] - 12/29/2024 6:23 PM EDT [facility] Received Date:[id number] Lauren Hancock MD LAB BLOOD ORDERABLES Fin al Result [facility] CAN[facility] [address]rd [address], [place] [address], [place] [phone] [employer] [address] [place] [address], [place] [phone] * Phosphatidylethanol (PEth) (12/22/2024 2:14 PM EDT) [...] LABORATORY Comment: Authorized individuals can access the [facility] Enhanced Report with an [facility] Connect account using the following link. Your local lab can assist you in obtaining the patient report if you don't have a Connect account. [email or web address] PEth Interpretation See Comment 12/11 2:50 PM [...] developed and its performance characteristics determined by [employer]. It has not been cleared or approved by the U.S. Food and Drug Administration. This test was performed in a CLIA-certified laboratory and is intended for clinical purposes. Performed By: [employer] [address] [place] [address] Site Supervisor: Dennis Landry MD, PhD CLIA Number: [id number] Blood Structure of peripheral vein / Unknown Venipuncture / Unknown 12/22/2024 2:14 PM EDT 12/22/2024 2:51 PM EDT Lauren Hancock MD LAB BLOOD ORDERAB[place] [address], * Vppnk-3-Lscmjqlizhg (AAT) Phenotype (12/22/2024 2:14 PM EDT) Alpha 1 Antitrypsin Phenotype SEE NOTE 12/28/2024 6:17 PM EDT [employer]/[facility] Comment: THIS PATIENT'S YAZCR-1-YHJMNURLZWN PHENOTYPE IS PI*MM. 90% of normal individuals have the MM phenotype, with normal quantitative AAT levels. Many phenotypic patterns have been described, including deficiency states with F, S, Z, or other alleles. As a general estimation, compared to M allele of 100% of normal T-7-Poiagklfabm protein, the S allele produces approximately 60% and the Z allele 20%. For example, an MS phenotype would have about 80% of normal B-2-Yrnnendtpiv protein level, a 50% contribution from the M allele and 30% from the S allele. A ZZ phenotype would have about 20% of normal levels, a 10% contribution from each Z gene. The F allele has normal W-1-Pnwrwambaej levels, but the kinetics of elastase inhibition [...] 2:14 PM EDT 12/22/2024 2:51 PM EDT [facility] 12/28/2024 6:17 PM EDT [facility] Received Date: Lauren Hancock MD LAB BLOOD ORDERABLES [facility] al Result [facility] [address]rd [address], [place] [address], [place] [phone] [facility] [id number] [place] [address], * MMR Panel, IgG (12/22/2024 2:14 PM EDT) [facility] Measles Antibody (IgG), Immune Status >300.00 AU/mL 12/23/2024 5:57 AM EDT [employer] [facility] Comment: AU/mL Interpretation ----- <13.50 Not consistent with immunity 13.50-16.49 Equivocal >16.49 Consistent with immunity The presence of measles IgG suggests immunization or past or current infection with measles virus. For additional information, please refer to http://education.[employer]/faq/ZGF750 (This link is being provided for informational/ educational purposes only.) Mumps Antibody (IgG), Immune Status >300.00 AU/mL 12/23/2024 5:57 AM EDT [employer] Comment: AU/mL Interpretation ------- <9.00 Not consistent with immunity 9.00-10.99 Equivocal >10.99 Consistent with immunity The presence of mumps IgG antibody suggests immunization or past or current infection with mumps virus. Rubella Antibody (IgG), Immune Status 5.07 Index 12/23/2024 5:57 AM EDT [employer] Comment: Index Interpretation ----- <0.90 Not consistent with immunity 0.90-0.99 Equivocal > or = 1.00 Consistent with immunity The presence of rubella IgG antibody suggests immunization or past or current infection with rubella virus. Blood Structure of peripheral vein / Unknown Venipuncture / Unknown 12/22/2024 2:14 PM EDT 12/22/2024 2:52 PM EDT [facility] [facility] 12/[facility]/2024 5:57 AM EDT [facility] Received Date: Lauren Hancock MD LAB BLOOD ORDERABLES [facility] al Result [facility] [address], [place] [address], [place] [phone] [employer] [facility] [address] [facility] [address] [facility] [address], [place] [address], * (ABNORMAL) Herpes Simplex Virus 1&2, IgG (12/22/2024 2:14 PM EDT) HSV 1 IgG Type Specific Ab 46.90(H) index 12/23/2024 3:42 AM EDT [employer] HSV 2 IgG Type Specific Ab <0.90 index 12/23/2024 3:42 AM EDT [employer] [facility] Comment: Index Interpretation ----- <0.90 Negative [...] screening. For additional information, please refer to http://education.Concept[employer]/faq/RET038 (This link is being provided for informational/ educational purposes only.) Blood Structure of peripheral vein / Unknown Venipuncture / Unknown 12/22/2024 2:14 PM EDT 12/22/2024 2:50 PM EDT [facility] - 12/23/2024 3:42 AM EDT [facility] Received Date:[id number] Lauren Hancock MD LAB BLOOD ORDERABLES [facility] Result [facility] [address], [place] [address], [employer] [facility] [address] [facility] [address] [facility] [address], [place] [address], * (ABNORMAL) Protein Electrophoresis w/Reflex to Immunofixation, Serum (12/22/2024 2:14 PM EDT) Pathologist [facility] Protein, Total 7.6 6.1 - 8.1 g/dL 12/23/2024 10:54 PM EDT [employer] [facility] Albumin 3.8 3.8 - 4.8 g/dL 12/23/2024 10:54 PM EDT [employer] [facility] Alpha 1 Globulin 0.4(H) 0.2 - 0.3 g/dL 12/23/2024 10:54 PM EDT [employer] [facility] Alpha 2 Globulin 0.9 0.5 - 0.9 g/dL 12/23/2024 10:54 PM EDT [employer] [facility] Beta 1 Globulin 0.5 0.4 - 0.6 g/dL 12/23/2024 10:54 PM EDT [employer] [facility] Beta 2 Globulin 0.5 0.2 - 0.5 g/dL 12/23/2024 10:54 PM EDT [employer] [facility] Gamma Globulin 1.5 0.8 - 1.7 g/dL 12/23/2024 10:54 PM EDT [employer] [facility] Interpretation See Comments 12/23/2024 10:54 PM EDT [employer] [facility] Comment: Alpha-1 globulin increase noted. Blood Structure of peripheral vein / Unknown Venipuncture / Unknown 12/22/2024 2:14 PM EDT 12/22/2024 2:50 PM EDT Narrative [facility] 12/23/2024 10:54 PM EDT [employer] Received Date:[id number] us Lauren Hancock MD LAB BLOOD ORDERABLES Fin al Result [facility] [address], [place] [address], [employer] [facility] [address] [facility] [address], [place] [address], [place] [phone] * RPR (Diagnosis) w/Reflex to Titer & TPPA Confirm (12/22/2024 2:14 PM EDT) RPR W/Refl Titer NON-REACT DEREJE NON-REACT DEREJE 12/23/2024 11:34 AM EDT [employer] [facility] Blood Structure of peripheral vein / Unknown Venipuncture / Unknown 12/22/2024 2:14 PM EDT 12/22/2024 2:51 PM EDT Srikanth MENEZES - 12/23/2024 11:34 AM EDT [employer] Received Date:[id number] us Lauren Hancock MD LAB BLOOD ORDERABLES Fin al Result [facility] [address], [place] [address], [place] [phone] [employer] [facility] [address], [place] [address], [place] [phone] * (ABNORMAL) Iron Saturation (12/22/2024 2:14 PM EDT) Iron Saturation 19(L) 20 - 50 % 3:36 PM EDT [facility] Iron 59 30 - 160 ug/dL 12/22/2024 3:36 PM EDT [facility] Transferrin 252 200 - 360 mg/dL 12/22/2024 3:36 PM EDT [facility] Total Iron Binding Capacity 315 255 - 450 ug/dL 12/22/2024 3:36 PM EDT [facility] Blood Structure of peripheral vein / Unknown Venipuncture / Unknown 12/22/2024 2:14 PM EDT 12/22/2024 2:51 PM EDT us Lauren Hancock MD LAB BLOOD ORDERABLES Fin al Result [facility] [address] [place] [address], * TSH Reflex Free T4 (12/22/2024 2:14 PM EDT) TSH 3.360 0.280 - 3.890 uIU/mL 12/22/2024 3:36 PM EDT [facility] Comment: Females: 1st trimester 0.150-4.000 IU/mL 2nd trimester 0.310-4.170 IU/mL 3rd trimester 0.380-4.150 IU/mL Blood Structure of peripheral vein / Unknown Venipuncture / Unknown 12/22/2024 2:14 PM EDT 12/22/2024 2:51 PM EDT Lauren Hancock MD LAB BLOOD ORDERABLES Fin al Result [facility] [address] [place] [address], [place] * QuantiFERON-TB Gold Plus, 1 Tube (12/22/2024 2:14 PM EDT) [facility] QuantiFERON-TB Gold Plus NEGATIVE NEGATIVE 12/24/2024 3:33 PM EDT [employer] [facility] Comment: Negative test result. M. tuberculosis complex infection unlikely. NIL 0.02 IU/mL 12/24/2024 3:33 PM EDT [employer] [facility] Mitogen-NIL 6.90 IU/mL 12/24/2024 3:33 PM EDT [employer] [facility] TB1-NIL 0.00 IU/mL 12/24/2024 3:33 PM EDT [employer] [facility] TB2-NIL 0.00 IU/mL 12/24/2024 3:33 PM EDT [employer] [facility] Comment: The Nil tube value reflects [...] T-lymphocytes. For additional information, please refer to https://education.iThera [employer]/faq/EXL283 (This link is being provided for informational/ educational purposes only.) Blood Structure of peripheral vein / Unknown Venipuncture / Unknown 12/22/2024 2:14 PM EDT 12/22/2024 2:42 PM EDT Narrative [facility] - 12/24/2024 3:33 PM EDT [facility] Received Date: Lauren Hancock MD LAB BLOOD ORDERABLES Fin al Result [facility] [address], [place] [address], [place] [phone] [employer] [facility] [address] [facility] [address], [place] [address], [place] [phone] * (ABNORMAL) CBC Auto Differential (12/22/2024 2:14 PM EDT) WBC 4.9 3.8 - 10.8 10*3/uL 12/22/2024 3:21 PM EDT [facility] RBC 4.19 3.80 - 5.10 10*6/uL 12/22/2024 3:21 PM EDT [facility] Hemoglobin 12.1 11.7 - 15.5 g/dL 12/22/2024 3:21 PM EDT [facility] Hematocrit 37.6 35.0 - 45.0 % 12/22/2024 3:21 PM EDT [facility] MCV 89.7 80.0 - 100.0 fL 12/22/2024 3:21 PM EDT [facility] MCH 28.9 27.0 - 33.0 pg 12/22/2024 3:21 PM EDT [facility] MCHC 32.2 32.0 - 36.0 g/dL 12/22/2024 3:21 PM EDT [facility] RDW 14.8 11.0 - 15.0 % 12/22/2024 3:21 PM EDT [facility] Platelets 113(L) 140 - 400 10*3/uL 12/22/2024 3:21 PM EDT [facility] MPV 12/22/2024 3:21 PM EDT [facility] Comment:Test not performed. Neutrophil % 68.8 % 12/22/2024 3:21 PM EDT [facility] Immature Grans % 0.2 0.0 - 0.9 % 12/22/2024 3:21 PM EDT [facility] Lymphocyte % 18.9 % 12/22/2024 3:21 PM EDT [facility] Monocyte % 8.8 % 12/22/2024 3:21 PM EDT [facility] Eosinophil % 2.9 % 12/22/2024 3:21 PM EDT [facility] [employer] [facility] Basophil % 0.4 % 12/22/2024 3:21 PM EDT [facility] Neutrophil # 3.36 1.50 - 7.80 10*3/uL 12/22/2024 3:21 PM EDT [facility] Immature Grans # <0.03 <=0.03 10*3/uL 12/22/2024 3:21 PM EDT [facility] Lymphocyte # 0.90 0.85 - 3.90 10*3/uL 12/22/2024 3:21 PM EDT [facility] Monocyte # 0.40 0.20 - 0.95 10*3/uL 12/22/2024 3:21 PM EDT [facility] Eosinophil # 0.10 0.02 - 0.50 10*3/uL 12/22/2024 3:21 PM EDT [facility] Basophil # <0.03 0.00 - 0.20 10*3/uL 12/22/2024 3:21 PM EDT [facility] nRBC % 0.0 /100 WBCs 12/22/2024 3:21 PM EDT [employer] [facility] nRBC # <0.01 <0.01 10*3/uL 12/22/2024 3:21 PM EDT [facility] Blood Structure of peripheral vein / Unknown Venipuncture / Unknown 12/22/2024 2:14 PM EDT 12/22/2024 2:53 PM EDT us Lauren Hancock MD LAB BLOOD ORDERABLES Fin al Result [facility] [address] [place] [address], * Smooth Muscle Antibody Screen w/Reflex to Titer (12/22/2024 2:14 PM EDT) Smooth Muscle AB Screen NEGATIVE NEGATIVE 12/25/2024 12:24 PM EDT [employer] [facility] Blood Structure of peripheral vein / Unknown Venipuncture / Unknown 12/22/2024 2:14 PM EDT 12/22/2024 2:51 PM EDT Narrative [facility] - 12/25/2024 12:24 PM EDT [facility] Received Date:[id number] us Lauren Hancock MD LAB BLOOD ORDERABLES Fin al Result Performing Organization Address [facility] [[email or web address]] Co de Phone Number [facility] [address], [place] [address], [place] [phone] [employer] [facility] [address] [facility] [address], [place] [address], [place] [phone] * (ABNORMAL) Hepatitis C Antibody w/Reflex to PCR (12/22/2024 2:14 PM EDT) Hepatitis C Antibody REACTIVE( A) NON-REACT DEREJE 12/22/2024 10:35 PM EDT [employer] [facility] Comment: Based on this result, the sample will be tested for HCV RNA by a Nucleic Acid Amplification Test (NAAT) to determine if the patient has a current active infection. Blood Structure of peripheral vein / Unknown Venipuncture / Unknown 12/22/2024 2:14 PM EDT 12/22/2024 2:51 PM EDT Srikanth MENEZES - 12/22/2024 10:35 PM EDT [facility] Received Date:[id number] us Lauren Hancock MD LAB BLOOD ORDERABLES Fin al Result Performing Organization Address City/[facility]/ZIP Co de Phone Number [facility] [address], [place] [address], [place] [phone] [employer] [facility] [address], [place] [address], [place] [phone] * (ABNORMAL) Hepatitis A Antibody, Total (12/22/2024 2:14 PM EDT) Pathologist [facility] Hepatitis A Ab, Total REACTIVE( A) NON-REACT DEREJE 12/22/2024 10:28 PM EDT [employer] [facility] Comment: For additional information, please refer to http://education.iThe[employer]/faq/KCP755 (This link is being provided for informational/ educational purposes only.) Blood Structure of peripheral vein / Unknown Venipuncture / Unknown 12/22/2024 2:14 PM EDT 12/22/2024 2:51 PM EDT Srikanth MENEZES - 12/22/2024 10:28 PM EDT [facility] Received Date:[id number] us Lauren Hancock MD LAB BLOOD ORDERABLES Fin al Result Performing Organization Address City/[facility]/ZIP Co de Phone Number [facility] [address], [place] [address], [place] [phone] [employer] [facility] [address], [place] [address], [place] [phone] * STEPHON Screen, Reflex to Titer, IFA (12/22/2024 2:14 PM EDT) Pathologist [facility] STEPHON Screen, IFA NEGATIVE NEGATIVE 10:48 AM EDT [employer] [facility] Comment: STEPHON IFA is a first line [...] AC-0: Negative International Consensus on STEPHON Patterns (https://doi.org/10.1515/egfq-6709-1393) For additional information, please refer to http://education.Con[employer]/faq/NHO763 (This link is being provided for informational/ educational purposes only.) Blood Structure of peripheral vein / Unknown Venipuncture / Unknown 12/22/2024 2:14 PM EDT 12/22/2024 2:52 PM EDT Narrative [employer] [facility] 12/24/2024 10:48 AM EDT [employer] Received Date: us Lauren Hancock MD LAB BLOOD ORDERABLES Fin al Result [facility] [address], [place] [address], [employer] [address], [place] [address], [place] [phone] * Ceruloplasmin (12/22/2024 2:14 PM EDT) Ceruloplasmin 39 14 - 48 mg/dL 12/23/2024 2:32 AM EDT [employer] [facility] Blood Structure of peripheral vein / Unknown Venipuncture / Unknown 12/22/2024 2:14 PM EDT 12/22/2024 2:50 PM EDT Srikanth [facility] M[facility] - 12/23/2024 2:32 AM EDT [employer] Received Date:[id number] us Lauren Hancock MD LAB BLOOD ORDERABLES Fin al Result [facility] [address], [place] [address], [employer] [facility] [address] [facility] [address], [place] [address], [place] [phone] * (ABNORMAL) Zinc (12/22/2024 2:14 PM EDT) Zinc 54(L) 60 - 130 mcg/dL 12/24/2024 7:44 PM EDT [facility]) Comment: This test was developed and its analytical performance characteristics have been determined by [employer] [place], [place]. It has not been cleared or [...] Date: Lauren Hancock MD LAB BLOOD ORDERABLES [facility] al Result [facility] CARDONA) [address] [place] [address], [place] * (ABNORMAL) Vitamin A (Retinol) (12/22/2024 2:14 PM EDT) Vitamin A (Retinol) 29(L) 38 - 98 mcg/dL 12/24/2024 6:46 PM EDT [facility] Comment: Vitamin supplementation within 24 hours prior to blood draw may affect the accuracy of the results. This test was developed and its analytical performance characteristics have been determined by [employer] [place], [place]. It has not been cleared or approved by the U.S. Food and Drug Administration. This assay has been validated pursuant to the CLIA regulations and is used for clinical purposes. Blood Structure of peripheral vein / Unknown Venipuncture / Unknown 12/22/2024 2:14 PM EDT 12/22/2024 2:46 PM EDT Srikanth CARDONA) - 12/24/2024 6:46 PM EDT [facility] Received Date:[id number] Lauren Hancock MD LAB BLOOD ORDERABLES Fin al Result Performing Organization Address City/[facility] [[email or web address]] Co de Phone Number [facility]) [address] [place] [address], [place] * (ABNORMAL) Emma-Dietz Virus VCA, IgG (12/22/2024 2:14 PM EDT) [facility] EBV Viral Capsid Ag Ab (IGG) 652.00(H) U/mL 12/23/2024 3:42 AM EDT [employer] [facility] Comment: U/mL Interpretation ---- <18.00 Negative 18.00-21.99 Equivocal >21.99 Positive Blood Structure of peripheral vein / Unknown Venipuncture / Unknown 12/22/2024 2:14 PM EDT 12/22/2024 2:50 PM EDT [facility] - 12/23/2024 3:42 AM EDT [facility] Received Date:[id number] Lauren Hancock MD LAB BLOOD ORDERABLES Fin al Result Performing Organization Address [facility] de Phone Number [facility] [address], [place] [address], [employer] [facility] [address] [facility] [address], [place] [address], * Hepatitis B Core Antibody, Total (12/22/2024 2:14 PM EDT) [facility] Hepatitis B Core Ab Total NON-REACT DEREJE NON-REACT DEREJE 12/22/2024 7:44 PM EDT [employer] [facility] Comment: For additional information, please refer to http://[employer].i[employer]/faq/VAD690 (This link is being provided for informational/ educational purposes only.) Blood Structure of peripheral vein / Unknown Venipuncture / Unknown 12/22/2024 2:14 PM EDT 12/22/2024 2:50 PM EDT Narrative [facility] - 12/22/2024 7:44 PM EDT [facility] Received Date: Lauren Hancock MD LAB BLOOD ORDERABLES Fin al Result [facility] [address] [facility] [address], [place] [address], [employer] [facility] [address] [facility] [address], [place] [address], * Hepatitis C RNA, Quantitative, PCR (12/22/2024 2:14 PM EDT) [facility] Hcv RNA, Quantitative Real Time PCR <15 NOT DETECTED NOT DETECTED IU/mL 12/23/2024 1:16 PM EDT [employer] [facility] Hepatitis C Quantitative PCR Log IU/mL <1.18 NOT DETECTED NOT DETECTED Log IU/mL 12/23/2024 1:16 PM EDT [employer] [facility] Comment: HCV RNA is not [...] more information on this test, go to: http://Retention Science.i[employer]/faq/LPW69b7 (This link is being provided for informational/ educational purposes only.) This assay is intended for use as an aid in the diagnosis of HCV infection and the management of HCV infected patients undergoing anti-viral therapy. Blood Structure of peripheral vein / Unknown Venipuncture / Unknown 12/22/2024 2:14 PM EDT 12/22/2024 2:51 PM EDT Narrative [facility] - 12/23/2024 1:16 PM EDT [facility] Received Date:[id number] us Lauren Hancock MD LAB BLOOD ORDERABLES Fin al Result Performing Organization Address City/[facility]/ZIP Co de Phone Number [facility] [address], [place] [address], [place] [phone] [employer] [facility] [address] [facility] [address], [place] [address], [place] [phone] * Vitamin D, 25-Hydroxy, Total, Immunoassay (12/22/2024 2:14 PM EDT) [facility] Calcidiol+ercalc idiol 62 30 - 100 ng/mL 12/22/2024 10:26 PM EDT [employer] [facility] Comment: Vitamin D Status 25-OH Vitamin D: Deficiency: <20 ng/mL Insufficiency: 20 - 29 ng/mL Optimal: > or = 30 ng/mL For 25-OH Vitamin D testing on patients on D2-supplementation and patients for whom quantitation of D2 and D3 fractions is required, the QuestAssureD(TM) 25-OH VIT D, (D2,D3), LC/MS/MS is recommended: order code 35563 (patients >2yrs). See Note 1 Note 1 For additional information, please refer to http://education.MaxPre[employer]/faq/OSU655 (This link is being provided for informational/ educational purposes only.) Blood Structure of peripheral vein / Unknown Venipuncture / Unknown 12/22/2024 2:14 PM EDT 12/22/2024 2:51 PM EDT Srikanth [facility] MENEZES - 12/22/2024 10:26 PM EDT [facility] Received Date:[id number] us Lauren Hancock MD LAB BLOOD ORDERABLES Fin al Result Performing Organization Address City/[facility]/ZIP Co de Phone Number [facility] [address] [facility] [address] [facility], [place] [address], [employer] [facility] [address], [place] [address], * Mitochondrial Antibody w/Reflex (12/22/2024 2:14 PM EDT) Pathologist [facility] Mitochondrial Ab Screen NEGATIVE NEGATIVE 12/25/2024 12:24 PM EDT [employer] [facility] Blood Structure of peripheral vein / Unknown Venipuncture / Unknown 12/22/2024 2:14 PM EDT 12/22/2024 2:51 PM EDT Srikanth [employer] [facility] - 12/25/2024 12:24 PM EDT [facility] Received Date: us Lauren Hancock MD LAB BLOOD ORDERABLES Fin al Result [facility] [address], [place] [address], [employer] [facility] [address], [place] [address], * Toxoplasma gondii Antibody, IgG (12/22/2024 2:14 PM EDT) [facility] Toxoplasma Ab IgG <7.20 IU/mL 12/23/2024 4:53 AM EDT [employer] [facility] Comment: IU/mL Interpretation ------ <7.20 Negative 7.20-8.79 Equivocal >8.79 Positive Blood Structure of peripheral vein / Unknown Venipuncture / Unknown 12/22/2024 2:14 PM EDT 12/22/2024 2:51 PM EDT Srikanth [facility] MENEZES - 12/23/2024 4:53 AM EDT [facility] Received Date: us Lauren Hancock MD LAB BLOOD ORDERABLES Fin al Result [facility] [address] [facility] [address] [facility], [place] [address], [employer] [facility] [address], [address] [place] [address], * HIV-1/2 Antigen/Antibodies 4th Generation w/Reflex (12/22/2024 2:14 PM EDT) Pathologist [facility] HIV Final Interp See Comments 12/22/2024 7:45 PM EDT [employer] [facility] Comment: HIV Negative HIV-1 antigen and HIV-1/HIV-2 antibodies were not detected. There is no laboratory evidence of HIV infection. Blood Structure of peripheral vein / Unknown Venipuncture / Unknown 12/22/2024 2:14 PM EDT 12/22/2024 2:50 PM EDT Narrative [facility] - 12/22/2024 7:45 PM EDT [facility] Received Date: Lauren Hancock MD LAB BLOOD ORDERABLES Fin al Result [facility] [address] [facility] [address] [facility], [address] [place] [address], [place] [phone] [employer] [facility] [address] [place] [address], * Hepatitis B Surface Antibody (12/22/2024 2:14 PM EDT) Pathologist [facility] Hepatitis B Surface Ab Immunity, Qn 173 > OR = 10 mIU/mL 12/22/2024 10:28 PM EDT [employer] [facility] Comment: PATIENT HAS IMMUNITY TO HEPATITIS B VIRUS. For additional information, please refer to http://education.iThera Medical/faq/SRW548 (This link is being provided for informational/ educational purposes only). Blood Structure of peripheral vein / Unknown Venipuncture / Unknown 12/22/2024 2:14 PM EDT 12/22/2024 2:51 PM EDT Srikanth MENEZES - 12/22/2024 10:28 PM EDT [facility] Received Date:[id number] us Lauren Hancock MD LAB BLOOD ORDERABLES Fin al Result Performing Organization Address City/[facility]/ZIP Co de Phone Number [facility] MENEZES [address], [place] [address], [place] [phone] [employer] [facility] [address], [place] [address], * Hepatitis B Surface Antigen w/Confirmation (12/22/2024 2:14 PM EDT) Hepatitis B Surface Antigen NON-REACT DEREJE NON-REACT DEREJE 12/23/2024 10:30 AM EDT [employer] Comment: For additional information, please refer to http://education.iThera Medical/faq/RYX763 (This link is being provided for informational/ educational purposes only.) Blood Structure of peripheral vein / Unknown Venipuncture / Unknown 12/22/2024 2:14 PM EDT 12/22/2024 2:52 PM EDT Srikanth [employer] [place] - 12/23/2024 10:30 AM EDT [facility] Received Date:[id number] us Lauren Hancock MD LAB BLOOD ORDERABLES Fin al Result Performing Organization Address City/[facility]/ZIP Co de Phone Number [facility] MENEZES [address], [place] [address], [place] [phone] [employer] [facility] [address], [place] [address], * (ABNORMAL) Cytomegalovirus Antibody, IgG (12/22/2024 2:14 PM EDT) Cytomegalovirus Antibody (IgG) >10.00(H ) U/mL 12/23/2024 3:42 AM EDT [employer] [facility] Comment: U/mL Interpretation ----- <0.60 Negative 0.60-0.69 Equivocal > or = 0.70 Positive A positive result indicates that the patient has antibody to CMV. It does not differentiate between an active or past infection. Blood Structure of peripheral vein / Unknown Venipuncture / Unknown 12/22/2024 2:14 PM EDT 12/22/2024 2:50 PM EDT Narrative [facility] 12/23/2024 3:42 AM EDT [facility] Received Date:[id number] us Lauren Hancock MD LAB BLOOD ORDERABLES Fin al Result Performing Organization Address City/[facility]/ZIP Co de Phone Number [address] Floor, [place] [address], [place] [phone] [employer] [address], [place] [address], [place] [phone] * PTT (12/22/2024 2:14 PM EDT) aPTT 29.1 23.0 - 32.0 Seconds 12/22/2024 3:16 PM EDT [facility] Comment: Current PTT reagent is not sensitive to detect all Lupus Anticoagulant (LA) Inhibitor Cases. If a LA is suspected, please order a Lupus Anticoagulation w/ Reflex Test which is performed at [facility] in [place], [place]. Blood Structure of peripheral vein / Unknown Venipuncture / Unknown 12/22/2024 2:14 PM EDT 12/22/2024 2:53 PM EDT us Lauren Hancock MD LAB BLOOD ORDERABLES Fin al Result Performing Organization Address City/[facility]/ZIP Co de Phone Number [facility] [address] [place] [address], [place] * (ABNORMAL) Protime-INR (12/22/2024 2:14 PM EDT) PT 12.6(H) 9.6 - 12.4 Seconds 12/22/2024 3:16 PM EDT [facility] INR 1.2 0.9 - 1.1 12/22/2024 3:16 PM EDT [facility] Comment:The optimal therapeu tic INR range for patients treated with Vitamin K antagonists (VKAS, e.g., Warfarin) is 2.0 to 3.5. Discuss the desired range with your doctor/care team. Blood Structure of peripheral vein / Unknown Venipuncture / Unknown 12/22/2024 2:14 PM EDT 12/22/2024 2:53 PM EDT us Lauren Hancock MD LAB BLOOD ORDERABLES Fin al Result Performing Organization Address City/[facility]/ZIP Co de Phone Number [facility] [employer] [facility] [address] [place] [address], * Type and Screen (12/22/2024 2:14 PM [...] RABLES Final Result [facility] [address] [place] [address], * Varicella Zoster Antibody, IgG (12/22/2024 2:14 PM EDT) Varicella Zoster Virus Antibody 30.50 S/CO 12/22/2024 10:41 PM EDT [employer] [facility] Comment: Signal to Cut-off S/CO Interpretation [...] PM EDT 12/22/2024 2:51 PM EDT Narrative [facility] 12/22/2024 10:41 PM EDT [facility] Received Date: us Lauren Hancock MD LAB BLOOD ORDERABLES Fin al Result [address], [place] [address], [employer] [address], [place] [address], [place] [phone] * Phosphorus (12/22/2024 2:14 PM EDT) [facility] Phosphorus 4.0 2.5 - 4.5 mg/dL 12/22/2024 3:36 PM EDT [facility] Blood Structure of peripheral vein / Unknown Venipuncture / Unknown 12/22/2024 2:14 PM EDT 12/22/2024 2:51 PM EDT us Lauren Hancock MD LAB BLOOD ORDERABLES Fin al Result Performing Organization Address City/[facility]/ZIP Co de Phone Number [facility] [address] [place] [address], * Magnesium (12/22/2024 2:14 PM EDT) MG 1.6 1.6 - 2.4 mg/dL 12/22/2024 3:36 PM EDT [facility] Blood Structure of peripheral vein / Unknown Venipuncture / Unknown 12/22/2024 2:14 PM EDT 12/22/2024 2:51 PM EDT Lauren Hancock MD LAB BLOOD ORDERABLES Fin al Result Performing Organization Address [facility] de Phone Number [facility] [address] [place] [address], * (ABNORMAL) Hemoglobin A1c (12/22/2024 2:14 PM EDT) Hemoglobin A1C 5.9(H) <5.7 % 12/22/2024 8:27 PM EDT [facility] Comment: For someone without known diabetes, a [...] (MG/DL) 123 mg/dL 12/22/2024 8:27 PM EDT [employer] eAG (MMOL/L) 6.8 mmol/L 12/22/2024 8:27 PM EDT [employer] Blood Structure of peripheral vein / Unknown Venipuncture / Unknown 12/22/2024 2:14 PM EDT 12/22/2024 2:51 PM EDT Narrative [facility] 12/22/2024 8:27 PM EDT [facility] Received Date:[id number] us Lauren Hancock MD LAB BLOOD ORDERABLES Fin al Result [facility] [address], [place] [address], [place] [phone] [facility] [address] [facility] [address] [address], [place] [address], [place] [phone] * Ferritin (12/22/2024 2:14 PM EDT) Ferritin 172.0 11.0 - 306.0 ng/mL 12/22/2024 3:36 PM EDT [facility] Blood Structure of peripheral vein / Unknown Venipuncture / Unknown 12/22/2024 2:14 PM EDT 12/22/2024 2:51 PM EDT us Lauren Hancock MD LAB BLOOD ORDERABLES Fin al Result Performing Organization Address City/[facility]/ZIP Co de Phone Number [facility] [address] [place] [address], [place] * Bilirubin, Direct (12/22/2024 2:14 PM EDT) Bilirubin, Direct 0.3 <=0.4 mg/dL 12/22/2024 3:36 PM EDT [facility] Blood Structure of peripheral vein / Unknown Venipuncture / Unknown 12/22/2024 2:14 PM EDT 12/22/2024 2:51 PM EDT us Lauren Hancock MD LAB BLOOD ORDERABLES Fin al Result [facility] [address] [place] [address], [place] * Ethanol (12/22/2024 2:14 PM EDT) Ethanol <10 <10 mg/dL 12/22/2024 3:38 PM EDT [facility] Blood Structure of peripheral vein / Unknown Venipuncture / Unknown 12/22/2024 2:14 PM EDT 12/22/2024 2:50 PM EDT Lauren Hancock MD LAB BLOOD ORDERABLES Fin al Result [facility] [address] [place] [address], * (ABNORMAL) Lipid panel (12/22/2024 2:14 PM EDT) Cholesterol 203(H) <=199 mg/dL 12/22/2024 3:36 PM EDT [facility] Triglycerides 171(H) <=149 mg/dL 12/22/2024 3:36 PM EDT [facility] Cholesterol, HDL 39(L) 40 - 59 mg/dL 12/22/2024 3:36 PM EDT [facility] Cholesterol, Non-HDL 164 mg/dL 12/22/2024 3:36 PM EDT [facility] LDL Cholesterol 130(H) <100 mg/dL 12/22/2024 3:36 PM EDT [facility] VLDL 34.2 mg/dL 12/22/2024 3:36 PM EDT [facility] Cholesterol/HDL Ratio 5.2(H) <5.0 12/22/2024 3:36 PM EDT [facility] Blood Structure of peripheral vein / Unknown Venipuncture / Unknown 12/22/2024 2:14 PM EDT 12/22/2024 2:51 PM EDT [facility] - 12/22/2024 3:36 PM [...] MD LAB BLOOD ORDERABLES Fin al Result [facility] [address] [place] [address], * (ABNORMAL) Comprehensive Metabolic Panel (12/22/2024 2:14 PM EDT) NA 141 135 - 145 mmol/L 12/22/2024 3:36 PM EDT [facility] K 3.9 3.5 - 5.3 mmol/L 12/22/2024 3:36 PM EDT [facility] Cl 101 98 - 107 mmol/L 12/22/2024 3:36 PM EDT [facility] CO2 27 22 - 32 mmol/L 12/22/2024 3:36 PM EDT [facility] Anion Gap 13 5 - 15 12/22/2024 3:36 PM EDT [facility] Glucose 85 65 - 99 mg/dL 12/22/2024 3:36 PM EDT [facility] Creatinine 0.77 0.50 - 1.20 mg/dL 12/22/2024 3:36 PM EDT [facility] Calcium 10.5 8.6 - 10.5 mg/dL 12/22/2024 3:36 PM EDT [facility] Total Protein 8.3(H) 6.0 - 8.0 g/dL 12/22/2024 3:36 PM EDT [employer] [facility] Albumin 3.9 3.5 - 5.2 g/dL 12/22/2024 3:36 PM EDT [facility] [employer] [facility] Bilirubin, Total 0.6 0.2 - 1.2 mg/dL 12/22/2024 3:36 PM EDT [facility] [employer] [facility] Alkaline Phosphatase 71 35 - 129 U/L 12/22/2024 3:[address] [facility] [employer] [facility] AST 35 10 - 40 U/L 12/22/2024 3:36 PM EDT [facility] [employer] [facility] ALT 30 10 - 40 U/L 12/22/2024 3:36 PM EDT [employer] [facility] BUN 12 7 - 23 mg/dL 12/22/2024 3:36 PM EDT [facility] [employer] [facility] eGFR 83 >=60 mL/min/1. 73m2 12/22/2024 3:36 PM EDT [facility] [employer] [facility] Comment:The estimated glomer ular [...] 4.2 g/dL 12/22/2024 3:36 PM T [facility] [employer] A/G Ratio 0.9(L) 1.5 - 3.0 12/22/2024 3:36 PM T [employer] [facility] Blood Structure of peripheral vein / Unknown Venipuncture / Unknown 12/22/2024 2:14 PM EDT 12/22/2024 2:51 PM EDT Lauren Hancock MD LAB BLOOD ORDERABLES Fin al Result [facility] [address] [place] [address], [place] from Last [address] [place], [place] [address]HEALTH MEDICARE [facility] Advance Directives Documents on File Type Date Recorded Patient Skip Operator Expl [facility] Care Proxy 01/19/2025 2:50 PM 2024 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
--- OUTSIDE RECORDS SUMMARY | 2025-03-22 12:52 | XMS_ITS | Encounter Summary ---
Author Organization [facility] Address [address] [place] [address] Care Team Providers Care Envelope Folding Machine Adjuster Name Role Phone Darius Tamayo MD Primary Care Provider [phone] Encounter Details Date Type Department Care Team (Late st Contact Info) Description 03/02/2025 Results Follow-Up [facility] [address] [place] [address] Sabrina Dahl RN Social History Tobacco Use [...] Description 04/02/2025 10:00 AM EST Office Visit [facility] Building 4th floor Cardiology Medicine [address] [place] [address] Feeder Driver: James Reynoso MD [address] [place] [address] 04/22/2025 2:30 PM EST Follow-Up [facility] [address] [place] [address] Lauren Hancock MD [address] [place] [address] documented as of this encounter Visit Diagnoses Not on filedocumented in this encounter Care Teams Envelope Folding Machine Adjuster Relationship Specialty Start Date End Date Darius Tamayo MD [address] [place] [phone] PCP - General Gastroenterology 12/22/24 documented as of this encounter
--- OUTSIDE RECORDS SUMMARY | 2025-03-22 12:52 | XMS_ITS ---
Author Organization [facility] Address [address] [place] [address] Care Team Providers Care Welt Sewer Name Role Phone Darius Tamayo MD Primary Care Provider [phone] Transplant Episode Liver Candidate [facility] ([place], [place]) [facility] Center waitlisted on 03/02/2025 Marked as Active on 03/02/2025 Liver CoordinatorSabrina Dahl RN Phone: N/A Fax: N/A Email: N/A Scores Score Value Updated Expires Exceptions/Jeannie sons CPRA Not available UNOS MELD 11 03/02/2025 05/31/2025 MELD (Calc) 11 03/01/2025 Kake Organ Diagnosis Organ Primary Contributory Liver Primary Liver Malign kary: Hepatoma (HCC) and Cirrhosis 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) Infection History Noted Survival Infection Treatment Organism Resolved 11/25/2015 Chronic hepatitis C Care Team Name Role Phone Fax Email Sabrina Dahl RN Liver Coordinator N/A N/A N/A Lauren Hancock MD [employer] [phone] [email or web address] [email or web address] Darius Tamayo MD Referring Physician [phone] [email or web address] Pre-Transplant Referred: 12/01/2024 Evaluation began: 12/22/2024 Committee: 01/28/2025 Center waitlisted: 03/02/2025 Appointments (02/19/2025 - 04/21/2025) When With Visit Type Description 03/18/2025 Transplant - Ethel-Ray, N Follow Up Canceled (Patient - Personal Reason)
== END 2025-03-22 11:04 | disposition home or self-care (01) ==
PROVIDERS: PCP Nurse Practitioner Primary Care; Visit Provider Internal Medicine
DX: I48.0 Paroxysmal atrial fibrillation (principal); I10 Essential (primary) hypertension; Z01.810 Encounter for preprocedural cardiovascular examination
CPT/HCPCS: 99214; G2211

== ENCOUNTER → 2025-03-22 10:48 | Outpatient (BNVA) | payer MEDICARE, MEDICAID, SELFPAY | PROVIDERS: Visit Provider Internal Medicine | DX: Z01.810 Encounter for preprocedural cardiovascular examination (principal); I10 Essential (primary) hypertension; I48.0 Paroxysmal atrial fibrillation | CPT/HCPCS: 99212 ==

== ENCOUNTER 2025-04-14 14:20 | Outpatient (AMB) | payer MEDICARE, MEDICAID, SELFPAY ==
[2025-04-14 14:38] VITALS: BMI 30.7
--- NOTE | 2025-04-14 14:38 | MHC.OFFVIS ---
Vital Signs 04/14/25 14:38 Height 4 ft 11 in Weight 152 lb BMI 30.7 Intake Visit Reasons: Preop RT MF manipulation/trigger 04/19/25 AR Intake Note: Walt is a 69 year old right hand dominant female who presents today pre-operatively for discussion of their Right Middle Finger Manipulation & Trigger Release scheduled for 04/19/[address] Irene. Consents signed in office today. Of note, patient reports she is no longer taking Xarelto. Allergies rivaroxaban (From XARELTO) Allergy (Intermediate, Verified 04/14/25 14:38) GI BLEEDING SEAFOOD Allergy (Intermediate, Uncoded 04/14/25 14:38) RASH HPI HPI Preop RT MF manipulation/trigger 04/19/25 AR: Details: Walt is a 69 year old right hand dominant female who presents today pre-operatively for discussion of their Right Middle Finger Manipulation & Trigger Release scheduled for 04/19/[address] Irene. Consents signed in office today. No new medical diagnoses or medications since previous evaluation. Patient states that she was cleared for surgery by anesthesia without issue. Of note, patient reports she is no longer taking Xarelto. [facility] Medical History (Updated 04/13/25 @ 11:06 by Rebecca Lowry RN) Hepatitis C History of chemotherapy History of liver cancer Arthritis Hx of transfusion of packed red blood cells HTN (hypertension) Hemorrhage of gastrointestinal tract, unspecified PAF (paroxysmal atrial fibrillation) Tubular adenoma of colon Low vitamin D level Atrial fibrillation Cirrhosis of liver Asthma Surgical History (Updated 04/13/25 @ 11:08 by Rebecca Lowry RN) History of cardiac ablation for atrial fibrillation (~04/2024) Hx of cataract surgery History of eyelid surgery History of esophagogastroduodenoscopy (EGD) Hx of colonoscopy History of total abdominal hysterectomy and bilateral salpingo-oophorectomy History of 3 sections Family History Father No problems noted. Mother No problems noted. 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 Physical Exam Vital Signs: BMI result Body Mass Index 30.7 Const General: cooperative, healthy appearing and no acute distress Orientation/consciousness: patient oriented x3 HEENT Head: Yes normocephalic and Yes atraumatic Eyes EOM: EOMs intact bilaterally Resp Effort & Inspection: normal respiratory effort and able to speak in complete sentences Cardio Jugular venous distension: no JVD Skin General skin exam: turgor normal Rashes: no rashes Neuro General: patient oriented x3 Extrem Other: Evaluation of Right Upper Extremity: The patient is alert, oriented, and in no acute distress Neuro: Median, Ulnar, Radial nerves motor and sensory intact and sensation is normal to the tips of all digits Vascular: Cap refill brisk ROM: Can bring fingers all her fingers closed to a fist, and bring her index, ring, and small fingers back into full extension. She has a right middle finger ~50 degree PIP joint flexion contracture that is not reducible in clinic today. She is able to demonstrate active flexion at the DIP and PIP joints, but it is limited. She also has a DIP flexion contracture, which corrects when the PIP is flexed. She can actively flex her PIP joint from ~50-90 degrees She can fully flex & extend at her MCP joint, though this does not improve her PIP joint contracture Skin: No lacerations or abrasions. General: No Ecchymosis. No Erythema or evidence of infection. Psych Appearance: grossly normal Affect: normal affect Attitude: cooperative Assessment & Plan Assessment & Plan (1) Trigger finger, right middle finger: Code(s): M65.331 - Trigger finger, right middle finger Category: Medical (2) Trigger finger, left middle finger: Code(s): M65.332 - Trigger finger, left middle finger Category: Medical (3) Contracture of joint of finger of right hand: Code(s): M24.541 - Contracture, right hand Category: Medical Plan Assessment & plan: 1. Right middle finger ~50 degree PIP joint flexion contracture. Not reducible in clinic She gives a history of having locking and catching when she made a fist. Most likely secondary to a trigger finger which may now be locked in some flexion, in addition to the 50 degree PIP joint flexion contracture Onset ~4 years ago I educated her about this condition Again, I believe the most likely etiology of her flexion contracture is a long-standing trigger finger where when it hurt to bring the finger into full flexion because of locking, she stopped bringing it into full flexion, and went her to bring it into full extension she stopped bring it into full extension. Discussed operative and non operative treatment options. I recommend surgery, and she is in agreement The risks and benefits of operative treatment were discussed with the patient and the patient wishes to proceed with surgery. These risks include, but are not limited to risk of damage to blood vessels, nerves, tendons, infection, recurrence, incomplete relief of preoperative symptoms, persistent pain, fracture, possible need for further surgery and the risks associated with regional blocks and anesthesia. The plan is to take the patient to the operating room sometime in the next few weeks for the following procedures: 1. Right middle trigger finger release, under general 2. Right middle finger PIP joint closed manipulation, under general 3. Right middle finger possible release of volar plate, under general All of the preoperative paperwork including the consent was filled out today. All the patient's questions were answered. The patient understands that they will be contacted by our manager alliance soon to schedule this procedure. She denies Diabetes, asthma, lung, kidney issues She has AFib & is no longer on blood thinners.. Discuss possible Cardiology clearance with anesthesia. She also has liver cancer and has completed a course of Chemotherapy and is due to follow up in several months with oncology. 2. Left middle finger trigger finger with an ~10 degree PIP joint flexion contracture We are treating this conservatively for now. Coding Level of Care Code Est Pt Level 4 (94340) Diagnoses Trigger finger, right middle finger M65.331 Trigger finger, left middle finger M65.332 Contracture of joint of finger of right hand M24.541
--- OUTSIDE RECORDS SUMMARY | 2025-04-14 17:11 | XMS_ITS | Encounter Summary ---
Author Organization [employer] Address [address] [place] [address] 7t [place] [address] Care Team Providers Care Fire Boat Engineer Name Role Phone Sudha Mitchell Primary Care Provider Everett Rojas MD Unavailable [phone] Lindy Irene MD Unavailable [phone] Reason for Visit * Reason Comments Med Refill Encounter Details Date Type Department Care Team (Late st Contact Info) Description 06/22/2022 Refill [facility] MED[facility]INE [address] [place] [address] Sudha Mitchell ANP [address] [place] [address] Lumbago of lumbar region with sciatica Social [...] Care Team (Late st Contact Info) Description 04/15/2025 10:30 AM EST Office Visit [facility] [address] [place] [address] Sudha Mitchell ANP [address] [place] [address] documented as of this encounter Visit Diagnoses Diagnosis Lumbago of lumbar region with sciatica documented in this encounter Care Teams Fire Boat Engineer Relationship Specialty Start Date End Date Sudha Mitchell ANP [address] [place] [address] PCP - General Family Medicine 09/29/19 Everett Rojas MD [address] 3rd [place] [address] Cardiology 04/21/24 Lindy Irene MD [address] [place] [address] Orthopaedic Surgery 03/22/25 documented as of this encounter
--- OUTSIDE RECORDS SUMMARY | 2025-04-14 17:11 | XMS_ITS | Encounter Summary ---
Author Organization [employer] Address [address] [facility] 7t [place] [address] Care Team Providers Care Cigarette Making Machine Operator Name Role Phone Sudha Mitchell Primary Care Provider [phone] Everett Rojas MD Unavailable [phone] Lindy Irene MD Unavailable [phone] Reason for Visit * Reason Onset Date Comments Pre-op Visit 12/20/2023 Encounter Details Date Type Department Care Team (Late st Contact Info) Description 12/20/2023 Telephone [facility] MEDICINE [address] [place] [address] Sudha Mitchell ANP [address] [place], [place] [phone] Pre-op Visit Social History Tobacco Use Types [...] Miscellaneous Notes * Telephone Encounter - Catherine Rodriugez - 12/20/2023 12:24 PM EDT Outgoing call [...] [facility] Surgeon's office number: [phone] Ext [phone] Surgeon's office fax number: [phone] Contact name: Mara Last office note from surgeon requested: Yes documented in this encounter Plan of Treatment Upcoming Encounters Date Type Department Care Team (Late st Contact Info) Description 04/15/2025 10:30 AM EST Office Visit [facility] MED[facility]INE [address] [place] [address] Sudha Mitchell ANP [address] [place] [address] documented as of this encounter Visit Diagnoses Not on filedocumented in this encounter Care Teams Cigarette Making Machine Operator Relationship Specialty Start Date End Date Sudha Mitchell ANP [address] [place] [address] PCP - General Family Medicine 09/29/19 Everett Rojas MD [address] 3rd [place] [address] Cardiology 04/21/24 Lindy Irene MD [address] [place] [address] Orthopaedic Surgery 03/22/25 documented as of this encounter
--- OUTSIDE RECORDS SUMMARY | 2025-04-14 17:11 | XMS_ITS | Encounter Summary ---
Author Organization [facility] Address [address] [place] [address] Care Team Providers Care Surgery Center Administrator Name Role Phone Darius Tamayo MD Primary Care Provider [phone] Encounter Details Date Type Department Care Team (Late st Contact Info) Description 03/18/2025 Results Follow-Up [facility] [address] [place] [address] Sabrina Dahl RN Social History Tobacco Use [...] Care Team (Late st Contact Info) Description 05/11/2025 4:00 PM EST Follow-Up [facility] [address] [place] [address] Lauren Hancock MD [address] [place] [address] 07/15/2025 1:00 PM EST Office Visit [facility] 4th floor Cardiology Medicine [address] [place] [address] Bill Collector: Tavia Campos MD [address] [place] [address] documented as of this encounter Visit Diagnoses Not on filedocumented in this encounter Care Teams Surgery Center Administrator Relationship Specialty Start Date End Date Darius Tamayo MD [address] [place] [address] PCP - General Gastroenterology 12/22/24 documented as of this encounter
--- OUTSIDE RECORDS SUMMARY | 2025-04-14 17:11 | XMS_ITS | Encounter Summary ---
Author Organization [employer] Address [address] [facility] 7t [place] [address] Care Team Providers Care Ski Technician Name Role Phone Sudha Mitchell Primary Care Provider [phone] Everett Rojas MD Unavailable [phone] Lindy Irene MD Unavailable [phone] Encounter Details Date Type Department Care Team ([facility] st Contact Info) Description 03/17/2025 Orders Only [facility] MEDICINE [address] [place] [address] Sudha Mitchell ANP [address] [place] [address] Acute gout of hand, unspecified cause, unspecified [...] Description 04/15/2025 10:30 AM EST Office Visit [facility] [address] [place] [address] Sudha Mitchell ANP [address] [place] [address] documented as of this encounter Visit Diagnoses Diagnosis Acute gout of hand, unspecified cause, unspecified laterality- Primary documented in this encounter Additional Health Concerns Assessment Noted Time PHQ-9 Depression Total Score: 7 10/08/19 25 7:52 AM EDT documented as of this encounter Care Teams Ski Technician Relationship Specialty Start Date End Date Sudha Mitchell ANP [address] [place] [address] PCP - General Family Medicine 09/29/19 Everett Rojas MD [address] 3rd [place] [address] Cardiology 04/21/24 Lindy Irene MD [address] [place] [address] Orthopaedic Surgery 03/22/25 documented as of this encounter
--- OUTSIDE RECORDS SUMMARY | 2025-04-14 17:11 | XMS_ITS | Encounter Summary ---
Author Organization [employer] Address [address] [facility] [address] 7t [place] [address] Care Team Providers Care Physical Therapist Assistant Name Role Phone Sudha Mitchell Primary Care Provider [phone] Everett Rojas MD Unavailable [phone] Lindy Irene MD Unavailable [phone] Reason for Visit * Reason Comments Med Refill Encounter Details Date Type Department Care Team (Late st Contact Info) Description 03/23/2024 Refill [facility] [address] [place] [address] Sudha Mitchell ANP [address] [place] [address] Lumbago of lumbar region with sciatica Social [...] Description 04/15/2025 10:30 AM EST Office Visit [facility] [address] [place] [address] Sudha Mitchell ANP [address] [place] [address] documented as of this encounter Visit Diagnoses Diagnosis Lumbago of lumbar region with sciatica documented in this encounter Care Teams Physical Therapist Assistant Relationship Specialty Start Date End Date Sudha Mitchell ANP [address] [place] [address] PCP - General Family Medicine 09/29/19 Everett Rojas MD [address] 3rd [place] [address] Cardiology 04/21/24 Lindy Irene MD [address] [place] [address] Orthopaedic Surgery 03/22/25 documented as of this encounter
--- OUTSIDE RECORDS SUMMARY | 2025-04-14 17:11 | XMS_ITS | Encounter Summary ---
Author Organization [employer] Address [address] [facility] 7t [place] [address] Care Team Providers Care Piccolo Mechanic Name Role Phone Sudha Mitchell Primary Care Provider [phone] Everett Rojas MD Unavailable [phone] Lindy Irene MD Unavailable Reason for Visit * Reason Onset Date Comments Results 03/17/2025 Encounter Details Date Type Department Care Team ([facility] st Contact Info) Description 03/17/2025 Results Follow-Up [facility] MEDICINE 230 [place] [address] Sudha Mitchell ANP [address] [place] [address] Sed Rate by Modified Westergren, C-reactive Protein, [...] Description 04/15/2025 10:30 AM EST Office Visit [facility] [address] [place] [address] Sudha iMtchell ANP [address] [place] [address] documented as of this encounter Visit Diagnoses Not on filedocumented in this encounter Additional Health Concerns Assessment Noted Time PHQ-9 Depression Total Score: 7 10/08/19 25 7:52 AM EDT documented as of this encounter Care Teams Piccolo Mechanic Relationship Specialty Start Date End Date Sudha Mitchell ANP [address] [place] [address] PCP - General Family Medicine 09/29/19 Everett Rojas MD [address] 3rd [place] [address] Cardiology 04/21/24 Lindy Irene MD [address] [place] [address] Orthopaedic Surgery 03/22/25 documented as of this encounter
--- OUTSIDE RECORDS SUMMARY | 2025-04-14 17:11 | XMS_ITS | Encounter Summary ---
Author Organization [employer] Address [address] [place] [address] 7t [place] [address] Care Team Providers Care Formula Checker Name Role Phone Sudha Mitchell Primary Care Provider [phone] Everett Rojas MD Unavailable [phone] Lindy Irene MD Unavailable [phone] Reason for Visit * Reason Comments Med Refill Encounter Details Date Type Department Care Team (Late st Contact Info) Description 01/22/2023 Refill [facility] MEDICINE [address] [place] [address] Sudha Mitchell ANP [address] [place], [place] [phone] Lumbago of lumbar region with sciatica Social [...] Description 04/15/2025 10:30 AM EST Office Visit [facility] [address] [place] [phone] Sudha Mitchell ANP [address] [place], [place] [phone] documented as of this encounter Visit Diagnoses Diagnosis Lumbago of lumbar region with sciatica documented in this encounter Care Teams Formula Checker Relationship Specialty Start Date End Date Sudha Mitchell ANP [address] [place] [address] PCP - General Family Medicine 09/29/19 Everett Rojas MD [address] 3rd [place] [address] Cardiology 04/21/24 Lindy Irene MD [address] [place] [address] Orthopaedic Surgery 03/22/25 documented as of this encounter
--- OUTSIDE RECORDS SUMMARY | 2025-04-14 17:11 | XMS_ITS | Encounter Summary ---
Author Organization [employer] Address [address] [place] [address] 7t [place] [address] Care Team Providers Care Vmware Administrator Name Role Phone Mitchell Sudha WEI Primary Care Provider [phone] Everett Rojas MD Unavailable [phone] Lindy Irene MD Unavailable [phone] Reason for Visit * Reason Comments Med Refill Encounter Details Date Type Department Care Team (Late st Contact Info) Description 12/30/2023 Refill [facility] MEDICINE [address] [place] [address] Fabi Boudreaux MD [address] [place] [address] Lumbago of lumbar region with sciatica Social [...] Description 04/15/2025 10:30 AM EST Office Visit [facility] MEDICINE [address] [place] [address] Sudha Mitchell ANP [address] [place] [address] documented as of this encounter Visit Diagnoses Diagnosis Lumbago of lumbar region with sciatica documented in this encounter Care Teams Vmware Administrator Relationship Specialty Start Date End Date Sudha Mitchell ANP [address] [place] [address] PCP - General Family Medicine 09/29/19 Everett Rojas MD [address] 3rd [place] [address] Cardiology 04/21/24 Lindy Irene MD [address] [place] [address] Orthopaedic Surgery 03/22/25 documented as of this encounter
--- OUTSIDE RECORDS SUMMARY | 2025-04-14 17:11 | XMS_ITS | Encounter Summary ---
Author Organization [employer] Address [address] [place] [address] 7t [place] [address] Care Team Providers Care Lease Administration Supervisor Name Role Phone Sudha Mitchell Primary Care Provider [phone] Everett Rojas MD Unavailable [phone] Lindy Irene MD Unavailable [phone] Reason for Visit * Reason Comments Med Refill Encounter Details Date Type Department Care Team (Late st Contact Info) Description 08/14/2022 Refill [facility] MED[facility]INE [address] [place] [address] [facility] [address] [place], [place] [phone] Lumbago of lumbar region with sciatica Social [...] Description 04/15/2025 10:30 AM EST Office Visit [facility] [address] [place] [phone] Sudha Mitchell ANP [address] [place] [address] documented as of this encounter Visit Diagnoses Diagnosis Lumbago of lumbar region with sciatica documented in this encounter Care Teams Lease Administration Supervisor Relationship Specialty Start Date End Date Sudha Mitchell ANP [address] [place] [address] PCP - General Family Medicine 09/29/19 Everett Rojas MD [address] 3rd [place] [address] Cardiology 04/21/24 Lindy Irene MD [address] [place] [address] Orthopaedic Surgery 03/22/25 documented as of this encounter
--- OUTSIDE RECORDS SUMMARY | 2025-04-14 17:11 | XMS_ITS | Encounter Summary ---
Author Organization [employer] Address [address] [facility] 7t [place] [address] Care Team Providers Care Retail Pharmacy Manager Name Role Phone Sudha Mitchell Primary Care Provider [phone] Everett Rojas MD Unavailable [phone] Lindy Irene MD Unavailable [phone] Reason for Visit * Reason Comments Med Refill Encounter Details Date Type Department Care Team (Late st Contact Info) Description 10/18/2023 Refill [facility] MED[facility]INE [address] [place] [address] Sudha Mitchell ANP [address] [place] [address] Lumbago of lumbar region with sciatica Social [...] Description 04/15/2025 10:30 AM EST Office Visit [facility] [address] [place] [address] Sudha Mitchell ANP [address] [place] [address] documented as of this encounter Visit Diagnoses Diagnosis Lumbago of lumbar region with sciatica documented in this encounter Care Teams Retail Pharmacy Manager Relationship Specialty Start Date End Date Sudha Mitchell ANP [address] [place] [address] PCP - General Family Medicine 09/29/19 Everett Rojas MD [address] 3rd [place] [address] Cardiology 04/21/24 Lindy Irene MD [address] [place] [address] Orthopaedic Surgery 03/22/25 documented as of this encounter
--- OUTSIDE RECORDS SUMMARY | 2025-04-14 17:11 | XMS_ITS | Encounter Summary ---
Author Organization [employer] Address [address] 7t [place] [address] Care Team Providers Care Instructional Services Specialist Name Role Phone Sudha Mitchell Primary Care Provider [phone] Everett Rojas MD Unavailable [phone] Lindy Irene MD Unavailable [phone] Reason for Visit * Reason Comments Med Refill Encounter Details Date Type Department Care Team (Late st Contact Info) Description 02/20/2024 Refill [facility]S [address] [place] [address] Sudha Mitchell ANP [address] [place] [address] Lumbago of lumbar region with sciatica Social [...] Description 04/15/2025 10:30 AM EST Office Visit [facility] [address] [place] [address] Sudha Mitchell ANP [address] [place] [address] documented as of this encounter Visit Diagnoses Diagnosis Lumbago of lumbar region with sciatica documented in this encounter Care Teams Instructional Services Specialist Relationship Specialty Start Date End Date Sudha Mitchell ANP [address] [place] [address] PCP - General Family Medicine 09/29/19 Everett Rojas MD [address] 3rd [place] [address] Cardiology 04/21/24 Lindy Irene MD [address] [place] [address] Orthopaedic Surgery 03/22/25 documented as of this encounter
--- OUTSIDE RECORDS SUMMARY | 2025-04-14 17:11 | XMS_ITS | Encounter Summary ---
Author Organization [employer] Address [address] [place] [address] 7t [place] [address] Care Team Providers Care Retail Seasonal Specialist Name Role Phone Sudha Mitchell Primary Care Provider Everett Rojas MD Unavailable [phone] Lindy Irene MD Unavailable [phone] Reason for Visit * Reason Comments Med Refill Encounter Details Date Type Department Care Team (Late st Contact Info) Description 05/02/2022 Refill [facility] PEDS [address] [place] [address] Sudha Mitchell ANP [address] [place] [address] Cervicalgia Social History Tobacco Use Types Packs/Day [...] Description 04/15/2025 10:30 AM EST Office Visit [facility] MEDICINE [address] [place] [address] Sudha Mitchell ANP [address] [place] [address] documented as of this encounter Visit Diagnoses Diagnosis Cervicalgia documented in this encounter Care Teams Retail Seasonal Specialist Relationship Specialty Start Date End Date Sudha Mitchell ANP [address] [place] [address] PCP - General Family Medicine 09/29/19 Everett Rojas MD [address] 3rd [place] [address] Cardiology 04/21/24 Lindy Irene MD [address] [place] [address] Orthopaedic Surgery 03/22/25 documented as of this encounter
--- OUTSIDE RECORDS SUMMARY | 2025-04-14 17:11 | XMS_ITS | Encounter Summary ---
Author Organization [employer] Address [address] [place] [address] Care Team Providers Care Wine Steward Name Role Phone Sudha Mitchell Primary Care Provider [phone] Everett Rojas MD Unavailable [phone] Lindy Irene MD Unavailable [phone] Reason for Visit * Reason Comments Med Refill Encounter Details Date Type Department Care Team (Late st Contact Info) Description 09/18/2023 Refill [facility] [address] [place] [address] Sudha Mitchell ANP [address] [place] [address] Lumbago of lumbar region with sciatica Social [...] Description 04/15/2025 10:30 AM EST Office Visit [facility] MEDIC[facility] [address] [place] [address] Sudha Mitchell ANP [address] [place] [address] documented as of this encounter Visit Diagnoses Diagnosis Lumbago of lumbar region with sciatica documented in this encounter Care Teams Wine Steward Relationship Specialty Start Date End Date Sudha Mitchell ANP [address] [place] [id number] PCP - General Family Medicine 09/29/19 Everett Rojas MD [address] [place] [address] Cardiology 04/21/24 Lindy Irene MD [address] [place] [address] Orthopaedic Surgery 03/22/25 documented as of this encounter
--- OUTSIDE RECORDS SUMMARY | 2025-04-14 17:11 | XMS_ITS | Encounter Summary ---
Author Organization [employer] Address [address] [place] [address] [address] [place] [address] Care Team Providers Care Chain Mortiser Operator Name Role Phone Sudha Mitchell Primary Care Provider [phone] Everett Rojas MD Unavailable [phone] Lindy Irene MD Unavailable [phone] Reason for Visit * Reason Onset Date Comments Med Refill 11/23/2022 Encounter Details Date Type Department Care Team ([facility] Contact Info) Description 11/23/2022 Telephone [facility] MEDICINE [address] [place] [address] Sudha Mitchell ANP [address] [place], [place] [id number] Med Refill Social History Tobacco Use Types [...] Upcoming Encounters Date Type Department Care Team ([facility] Contact Info) Description 04/15/2025 10:30 AM EST Office Visit [facility] MEDICINE [address] [place] [address] Sudha Mitchell ANP [address] [place] [address] documented as of this encounter Visit Diagnoses Not on filedocumented in this encounter Care Teams Chain Mortiser Operator Relationship Specialty Start Date End Date Sudha Mitchell ANP [address] [place] [address] PCP - General Family Medicine 09/29/19 Everett Rojas MD [address]rd [place] [address] Cardiology 04/21/24 Lindy Irene MD [address] [place] [address] Orthopaedic Surgery 03/22/25 documented as of this encounter
--- OUTSIDE RECORDS SUMMARY | 2025-04-14 17:12 | XMS_ITS ---
Author Organization [facility] Address [address] [place] [address] Care Team Providers Care Change Analyst Name Role Phone Darius Tamayo MD Primary Care Provider [phone] Transplant Episode Liver Candidate [facility] ([place], [place]) [facility] Center waitlisted on 03/02/2025 Marked as Active on 03/02/2025 Liver CoordinatorSabrina Dahl RN Phone: N/A Fax: N/A Email: N/A Scores Score Value Updated Expires Exceptions/Jeannie sons CPRA Not available UNOS MELD 11 03/02/2025 05/31/2025 MELD (Calc) 11 03/01/2025 [place] Organ Diagnosis Organ Primary Contributory Liver Primary Liver Malign kary: Hepatoma (HCC) and Cirrhosis 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) Infection History Noted Survival Infection Treatment Organism Resolved 11/25/2015 Chronic hepatitis C Care Team Name Role Phone Fax Email Sabrina Dahl RN Liver Coordinator N/A N/A N/A Lauren Hancock MD Sweat Box Attendant [phone] Rayna [email or web address] Darius Tamayo MD Referring Physician [phone] [email or web address] Pre-Transplant Referred: 12/01/2024 Evaluation began: 12/22/2024 Committee: 01/28/2025 Center waitlisted: 03/02/2025 Appointments (03/15/2025 - 05/15/2025) When With Visit Type Description 03/18/2025 Transplant - Karissa N Follow Up Canceled (Patient - Personal Reason) 04/22/2025 Transplant - Karissa N Follow Up Canceled (Patient - Personal Reason) 05/11/2025 Transplant - Karissa, N Fo llow Up
--- OUTSIDE RECORDS SUMMARY | 2025-04-14 17:12 | XMS_ITS | Encounter Summary ---
Author Organization [facility] Address [address] [place] [address] Care Team Providers Care Dialysis Social Worker Name Role Phone Darius Tamayo MD Primary Care Provider [phone] Encounter Details Date Type Department Care Team (Late st Contact Info) Description 03/02/2025 Results Follow-Up [facility] [address] [place] [phone] Sabrina Dahl RN Social History Tobacco Use [...] Info) Description 05/11/2025 4:00 PM EST Follow-Up [facility] Transplant [facility] [address] [place] [phone] Lauren Hancock MD [address] [place] [phone] 07/15/2025 1:00 PM EST Office Visit [facility] 4th floor Cardiology Medicine [address] [place] [phone] Director Part: Tavia Campos MD [address] [place] [address] documented as of this encounter Visit Diagnoses Not on filedocumented in this encounter Care Teams Dialysis Social Worker Relationship Specialty Start Date End Date Darius Tamayo MD [address] [place] [id number] PCP - General Gastroenterology 12/22/24 documented as of this encounter
--- OUTSIDE RECORDS SUMMARY | 2025-04-14 17:12 | XMS_ITS | Clinical Summary ---
Author Organization [employer] Address [address] [facility] 7[address] [place] [address] Care Team Providers Care Technical Assistance Consultant Name Role Phone Stephen Tom WEI Primary Care Provider Everett Rojas MD Unavailable [phone] Lindy Irene MD Unavailable [phone] Allergies Active Allergy Reactions Criticality Noted Date [...] by mouth Once per day. 024 Active Calcium Carb-Cholecalci ferol 600-10 MG-MCG tablet TAKE 1 TABLET BY MOUTH TWICE DAILY IN THE MORNING AND AT BEDTIME 180 tablet 3 Active montelukast (Singulair) 10 MG tablet TAKE 1 TABLET BY MOUTH AT BEDTIME 90 tablet 3 025 Active metoprolol tartrate (Lopressor) 50 MG [...] for muscle pain/spasm 30 tablet 025 Active Arnuity Ellipta 100 MCG/ACT inhalerIndicati ons:Moderate persistent asthma without complication INHALE 1 PUFF BY MOUTH EVERY DAY AT THE SAME TIME RINSE MOUTH AFTER USING. DO NOT SWALLOW. 30 each 1 03/26/20 25 4:45 PM EST 025 Active cholecalciferol (Vitamin D-3) 25 MCG tablet Take 1 tablet (25 mcg) by mouth in the morning. 60 tablet 2 03/26/20 25 4:45 PM EST 025 Active traMADol (Ultram) 50 MG tabletIndicatio ns:Lumbago of lumbar region with sciatica Take 1 tablet (50 mg) by mouth every 12 (twelve) hours if needed for severe pain. 56 tablet 03/26/20 25 4:45 PM EST 025 Active Eliquis 5 MG tablet 024 2024 Discontinued(T herapy completed) traMADol (Ultram) 50 MG tabletIndicatio ns:Lumbago of [...] in cirrhosis 04/16/2023 Overview (10/06/2024): EGDs via [facility] History of Helicobacter pylori infection 023 Overview (04/16/2023): tx'd 10/2021 via [facility] Cirrhosis of liver without ascites 04/16/2023 Overview (10/06/2024): compensated. thought to be d/t CARTWRIGHT vs. HCV. Follows w/ [facility] and had abd MRI to eval liver lesion 07/2022. 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 11/19/2022 Overview (11/19/2022): MRI 01/01/2022 findings copied into 09/18/22 note for reference Thrombocytopenia 03/20/2018 Trigger finger of both hands 03/20/2018 Neoplasm of liver 11/10/2017 Paroxysmal atrial fibrillation (CMS/HCC) 016 Atherosclerosis of [place] co ronary artery of [place] heart with stable angina pectoris 11/25/2015 Benign essential hypertension 11/25/2015 Chronic hepatitis C (CMS/HCC) 11/25/2015 Moderate persistent asthma 11/25/2015 Resolved Problems Problem Noted Date Diagnosed Date Resolved Date Mild depression 10/07/2024 10/07/2024 Encounters Date Type Department Care Team Description 04/14/2025 Telephone [facility] [address] [place] [phone] Tom Trujillo, ANP chart prep 03/22/2025 2:00 PM EST Office Visit [facility] [address] [place] [address] Tom Trujillo, ANP Elevated blood uric acid level (Primary Dx); Lumbago of lumbar region with sciatica; Paroxysmal atrial fibrillation (CMS/HCC) (HCC) 03/22/2025 Telephone [facility] [place] [address] Nita Mendoza RN Error (VOID this visit) 03/22/2025 Travel 03/19/2025 Telephone [facility] [place] [address] Tom Trujillo ANP chart prep 03/18/[address] [address] Tom Trujillo ANP pre op 03/17/2025 Orders Only [address] [place] [address] Tom Trujillo ANP Acute gout of hand, unspecified cause, unspecified laterality (Primary Dx) 03/17/2025 Results Follow-Up [facility] [place] [address] Tom Trujillo ANP Sed Rate by Modified Westergren, C-reactive Protein, CBC auto differential, Uric acid 03/15/2025 Refill [facility] [place] [address] Tom Trujillo ANP 03/12/2025 Refill [facility] [address] [place] [address] Tom Trujillo ANP Moderate persistent asthma without complication 02/17/2025 Telephone [facility] [address] [place] [address] Nichole Lucio RN 02/16/2025 11:15 AM EDT Office Visit [facility] [place] [address] Tom Trujillo ANP Hepatocellular carcinoma (CMS/HCC) (HCC) (Primary Dx); Encounter for immunization; Elevated C-reactive protein (CRP); Pain in finger of right hand; Lumbago of lumbar region with sciatica 02/16/2025 Travel 02/15/2025 Telephone [facility] [place] [address] Tom Trujillo ANP chart prep 02/09/2025 Telephone [facility] [address] [place] [address] Nichole uLcio RN 02/09/2025 Results Follow-Up [facility] [address] [place] [address] Anabela Carlson MD Uric acid 02/06/2025 Results Follow-Up [facility] [address] [place] [address] Anabela Carlson MD Comprehensive Metabolic Panel, CBC auto differential, Sed Rate by Modified Westergren, C-reactive Protein 02/06/2025 Orders Only [facility] [address] [place] [address] Anabela Carlson MD Pain in finger of right hand (Primary Dx) 02/05/2025 1:00 PM EDT Office Visit [facility] [address] [place] [address] Anabela Carlson MD Pain in finger of right hand (Primary Dx) 02/05/2025 Travel 01/26/2025 Orders Only GENERIC EXTERNAL DATA DEPARTMENT Provider, Generic External Data 01/22/2025 Refill [facility] [address] [place] [address] Harris Castro MD Moderate persistent asthma without complication (Primary Dx) 01/22/2025 Telephone [facility] [address] [place] [address] Tom Trujillo ANP Tracheostomy Tube Check 01/20/2025 6:00 PM EDT Office Visit [facility] [address] [place] [address] Tom Trujillo ANP 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ciatica (Primary Dx) 01/20/2025 Travel 01/19/2025 Results Follow-Up [facility] [address] [place] [address] Marcela Crook MD XR CERVICAL SPINE 3V 01/18/2025 1:45 PM EDT Office Visit [facility] [address] [place] [address] Marcela Crook MD Neck pain (Primary Dx); Dietary counseling; Exercise counseling; Class 1 obesity due to excess calories with serious comorbidity and body mass index (BMI) of 31.0 to 31.9 in adult 01/18/2025 Travel 01/18/2025 Telephone [facility] [address] [place] [address] Tom Trujillo, ANP Nurse Triage 01/13/2025 Travel 01/13/2025 Telephone [facility] [address] [place] [address] Nichole Lucio, MONAE from Last 3 Months Immunizations Immunization Administration Dates Next Due Hep B, adult 08/24/2024, 4,01/28/2024,01/22 Influenza injectable quadriv alent IIV4 with preservative [...] Sign Reading Time Taken Comments Blood Pressure 130/62 03/22/2025 1:58 PM EST Pulse 68 03/22/2025 1:58 PM EST Temperature 36.2 C (97.2 F) 03/22/2025 1:58 PM EST Respiratory Rate 11 03/22/2025 1:58 PM EST Oxygen Saturation 95% 03/22/2025 1:58 PM EST Inhaled Oxygen Concentration - - Weight 70 kg (154 lb 6 oz) 03/22/2025 1:58 PM ES T Height 149.9 cm (4' 11 ) 03/22/2025 1:58 PM EST Body Mass Index 31.18 03/22/2025 1:58 PM EST Plan of Treatment Upcoming Encounters Date Type Department Care Team (Late st Contact Info) Description 04/15/2025 10:30 AM EST Office Visit [facility] [address] [place], [place] [phone] Tom Trujillo ANP [address] [place] [address] Health Maintenance Due Date Last Done Comments CT Colonography 1955 FIT DNA/Cologuard 1955 FIT 1955 FOBT 1955 Sigmoidoscopy 1955 Alcohol/Substance Use Screening 1965 Hepatitis A Vaccines (1 of 2 - Risk 2-dose series) 1972 RSV Patients and Patients Aged 60 years or older (1 - Risk 50-74 years 1-dose series) 08/27/2003 Zoster Vaccines (3 of 3) 01/12/2021 11/17/2020, 04/13 Colonoscopy 10/10/2024 10/10/2021 Colorectal Cancer Screening 10/10/2024 COVID-19 Vaccine ( season) 2025 08/16/2020, 07/19/2020 SDOH Screening 06/18/2025 06/18/2024 Depression Screening 10/07/2025 10/07/2024, 10/08/19 25 Mammogram 10/26/2025 10/26/2024, 04/12, 10/31/2021, Additional history exists Tobacco Screening 04/11/2026 04/11/2025 DTaP/Tdap/Td Vaccines (3 - Td or Tdap) [...] Routine 01/18/2025 3:10 PM EDT Neck pain LIPID PANEL, STANDARD Routine 01/04/2025 1:20 PM EDT BI MAMMOGRAM SCREENING TOMOSYNTHESIS BILATERAL Routine 10/26/2024 1:20 PM EDT HM COLONOSCOPY Routine 10/10/2021 from Last 3 Months or Most Recently Relevant to Health Maintenance Results * (ABNORMAL) CBC auto differential (03/15/2025 1:34 PM EST) Only the most recent of2 resultswithin the time period is included. White Blood Count 3.7(L) 4.8 - 10.8 X10*3/uL [facility] Red Blood Count 4.09(L) 4.20 - 5.50 X10*6/uL [facility] Hemoglobin 12.1 12.0 - 16.0 g/dl [facility] Hematocrit 37.1 37.0 - 47.0 % [facility] Mean Corpuscular Volume 90.7 80.0 - 98.0 fL [facility] Mean Corpuscular Hemoglobin 29.6 27.0 - 33.0 pg [facility] Mean Corpuscular HGB Conc 32.6 31.0 - 35.0 g/dl [facility] Red Cell Distribution Width 15.7 11.0 - 16.0 % [facility] Platelet Count 125(L) 160 - 400 X10*3/uL [facility] Mean Platelet Volume 9.7 9.4 - 12.3 fL [facility] Neutrophils Percent Auto 71.5 45 - 73 % [facility] Imm Gran Pct Auto 0.3 0.0 - 0.4 % [facility] Lymphocytes Percent Auto 18.7(L) 20 - 40 % [facility] Monocytes Percent Auto 8.4 2 - 11 % [facility] Eosinophils Percent Auto 0.8 0 - 4 % [facility] Basophils Percent Auto 0.3 0 - 2 % [facility] NRBC Pct Auto 0.0 0.0 - 0.2 /100WBC [facility] Neutrophils Absolute Auto 2.6 2.0 - 8.3 x10*3/uL [facility] Imm Gran Abs Auto 0.01 0.00 - 0.03 X10*3/uL [facility] Lymphocytes Absolute Auto 0.7(L) 1.2 - 4.9 X10*3/uL [facility] Monocytes Absolute Auto 0.3 0.1 - 1.2 X10*3/uL [facility] Eosinophils Absolute Auto 0.0 0.0 - 0.4 X10*3/uL [facility] Basophils Absolute Auto 0.0 0.0 - 0.2 X10*3/uL [facility] NRBC Abs Auto 0.000 0.0 - 0.012 X10*3/uL [facility] Blood Venous blood specimen / Unknown 03/15/2025 1:34 PM EST 03/15/2025 1:34 PM EST Tom Trujillo [facility] LAB BLOOD ORDERABLES Final Resul t [facility] [address] [place] [address] [phone] * Cyclic Citrullinated Peptide (CCP) Antibody (IgG) (03/15/2025 1:34 PM EST) Cyclic Citrullinated Peptide <16 UNITS [facility] Comment:Reference RangeNegat christina: <20Weak Positive: 20-39Moderate Positive: 40-59Strong Positive: >59THIS TEST WAS PERFORMED AT:[address] [place] [id number] GRIFFIN MD Blood Venous blood specimen / Unknown 03/15/2025 1:34 PM EST 03/15/2025 1:34 PM EST [facility] LAB BLOOD ORDERABLES Final Resul t Performing Organization Address [facility] Phone Number [facility] [address] [place] [phone] * (ABNORMAL) Sed Rate by Modified Nathanielren (03/15/2025 1:34 PM EST) Only the most recent of2 resultswithin the time period is included. Erythrocyte Sedimentation Rate 60(H) 0 - 20 MM/HR [facility] Comment:Patients with polycy themia and many hemoglobin abnormalitiesmay have depressed sed rates whereas patients with anemiamay have elevated sed rates. Blood Venous blood specimen / Unknown 03/15/2025 1:34 PM EST 03/15/2025 1:34 PM EST [facility] LAB BLOOD ORDERABLES Final Resul t Performing Organization Address [facility] Phone Number [facility] [address] [place] [phone] * (ABNORMAL) C-reactive Protein (03/15/2025 1:34 PM EST) Only the most recent of2 resultswithin the time period is included. C Reactive Protein 1.64(H) < or = 0.50 mg/dL [facility] Blood Venous blood specimen / Unknown 03/15/2025 1:34 PM EST 03/15/2025 1:34 PM EST [facility] LAB BLOOD ORDERABLES Final Resul t Performing Organization Address [facility] Phone Number [facility] [address] [place] [phone] * (ABNORMAL) Uric acid (03/15/2025 1:34 PM EST) Only the most recent of2 resultswithin the time period is included. Uric Acid 6.8(H) 2.4 - 5.7 mg/dL [facility] Blood Venous blood specimen / Unknown 03/15/2025 1:34 PM EST 03/15/2025 1:34 PM EST Tom Trujillo [facility] LAB BLOOD ORDERABLES Final Resul t [facility] [address] [place] [address] [phone] * (ABNORMAL) Comprehensive Metabolic Panel (02/05/2025 2:16 PM EDT) Sodium 139 135 - 145 mmol/L [facility] Potassium 3.6 3.3 - 5.1 mmol/L [facility] Chloride 99 96 - 108 mmol/L [facility] Carbon Dioxide 33(H) 22 - 29 mmol/L [facility] Anion Gap 11(L) 12 - 20 [facility] Urea Nitrogen (BUN) 15 9 - 16 mg/dL [facility] Creatinine, Serum 0.74 0.5 - 1.4 mg/dL [facility] Estimated Glomerular Filt Rate >60 [facility] Comment:Chronic Kidney Disea se: Estimated GFR < 60 mL/min/1.80j8Czluri Kidney Disease: Estimated GFR < 15 mL/min/1.73m2 Glucose 87 60 - 115 mg/dL [facility] Calcium 10.0 8.4 - 10.2 mg/dL [facility] Bilirubin, Total 0.9 0.0 - 1.0 mg/dL [facility] Aspartate Amino Transferase 43(H) 5 - 31 U/L [facility] Alanine Aminotransferase 54(H) 0 - 31 U/L [facility] Total Protein 7.6 6.5 - 8.0 g/dL [facility] Albumin Level 3.6 3.5 - 5.0 g/dL [facility] Alkaline Phosphatase 65 39 - 117 U/L [facility] Blood Venous blood specimen / Unknown 02/05/2025 2:16 PM EDT 02/05/2025 3:57 PM EDT us Anabela Carlson MD LAB BLOOD ORDERABLES Final Re sult [facility] [address] [place] [address] [phone] * XR Hand 3+ Views Right (02/05/2025 1:51 PM EDT) Anatomical Region Laterality Modality Upper Extremities, Hand Right Radiogra phic Imaging 02/05/2025 1:51 PM EDT Narrative 02/05/2025 2:05 PM EDT [facility] [address] [place] [address] XRay Report Signed Patient: Walt Rajan MR #: [id number] : 1955 Acct:[id number] Age/Sex: 69 / F ADM Date: 02/05/25 [facility]: Anabela Carlson MD Ordering Physician: Anabela Carlson MD Date of Service: 02/05/25 Procedure(s): XR hand RT min 3V Accession Number(s): [id number] cc: Anabela Carlson MD Reason for Exam: [...] 02/05/25 1402 DD/ 1351 TD/TT: 02/05/25 1358 Infrastructure Tech: Procedure Note Donotuseinterpreter, Image - 02/05/2025 [facility] [address] [place] [address] XRay Report Signed Patient: Sid RajanR #: [id number] : 4Acct:[id number] Age/Sex: 69 / FADM Date: 02/05/25 Loc: HO.HHCX Attending Dr: Anabela Carlson MD Ordering Physician: Anabela Carlson MD Date of Service: 02/05/25 Procedure(s): XR hand RT min 3V Accession Number(s): [id number] cc: Anabela Carlson MD Reason for Exam: [...] 02/05/25 1402 DD/ 1351 TD/TT: 02/05/25 1358 Infrastructure Tech: Anabela Carlson MD IMG XR PROCEDURES Final Resul t * Influenza A B2 ID NOW (Kim) (01/26/2025 11:38 AM EDT) IDNOW SERIAL# [id number] [facility] Influenza A Negative Negative [facility] Influenza B2 Negative Negative [facility] Influenza A B2 Note See Note [facility] Comment:The Kim ID NOW In [...] LAB MICROBIOLOGY - GENERAL ORDERABLES Final Result [facility] [address] [place] [address] [phone] * COVID-19 ID NOW (KIM) (01/26/2025 11:38 AM EDT) IDNOW SERIAL# [id number] [facility] COVID-19 TEST Negative Negative [facility] COVID-19 NOTE See Note [facility] Comment: Results are for the identification of SARS-CoV2 RNA. TheSARS-CoV2 RNA is generally detectable in respiratory samplesduring the acute phase of infection. Positive results areindicative of the presence of SARS-CoV-2 RNA; clinicalcorrelation with patient history and other diagnosticinformation is necessary to determine patient infectionstatus. Positive results do not rule out bacterial infectionor co- infection with other viruses.Testing facilities within the [facility] and itsterritories are required to report all [...] use by authorized laboratories.Testing performed on the Contests4Causes ID NOW utilizing NAAT. 01/26/2025 11:3 8 AM EDT 01/26/2025 11:41 AM EDT us Generic External Data Provider LAB MOLECULAR MOON GNOSTICS ORDERABLES Final Result Performing Organization Address City/State/[facility] Co de Phone Number [facility] [address] [place] [phone] * CT Cervical Spine w/o Contrast (01/26/2025 11:11 AM EDT) Anatomical Region Laterality Modality Spine, C-spine Computed Tomogra phy 01/26/2025 11:1 1 AM EDT Narrative 01/26/2025 11:51 AM EDT [address] [address] [address] Scan Report Signed Patient: Walt Rajan MR #: [id number] : 1955 Acct:[id number] Age/Sex: 69 / F ADM Date: 01/26/25 Loc: HO.ED Attending Dr: Ordering Physician: Molly Mata Date of Service: 01/26/25 Procedure(s): CT cervical spine wo IV con Accession Number(s): [id number] cc: Molly Mata; TOM TRUJILLO NP Report Number: [id number]: Total DLP = 277.00 mGy-cm Reason for [...] 01/26/25 1148 DD/ 1111 TD/TT: 01/26/25 1134 Infrastructure Tech: Procedure Note Donotuseinterpreter, Image - 01/26/[address] [address] [address] Scan Report Signed Patient: Kenyon Rajan #: [id number] : 4Acct:[id number] Age/Sex: 69 / FADM Date: 01/26/25 Loc: HO.ED Attending Dr: Ordering Physician: Molly Mata Date of Service: 01/26/25 Procedure(s): CT cervical spine wo IV con Accession Number(s): [id number] cc: Molly Mata; TOM TRUJILLO NP Report Number: [id number]: Total DLP = 277.00 mGy-cm Reason for [...] 01/26/2025 11:48 AM EDT RP Dictated By: Silm Torres MD Signed By: <Electronically signed by Slim Mendoza MDin OV> 01/26/25 1148 DD/ 1111 TD/TT: 01/26/25 1134 Infrastructure Tech: us [facility] External Provider IMG CT PROCEDURES Edited Result - Final * CT Head w/o Contrast (01/26/2025 11:11 AM EDT) Anatomical Region Laterality Modality Head, Neck Computed Tomogra phy 01/26/2025 11:1 1 AM EDT Narrative 01/26/2025 11:44 AM EDT [address] [address] [address] Scan Report Signed Patient: Walt Rajan MR #: [id number] : 1955 Acct:[id number] Age/Sex: 69 / F ADM Date: 01/26/25 Loc: HO.ED Attending Dr: Ordering Physician: Molly Mata Date of Service: 01/26/25 Procedure(s): CT head/brain wo IV con Accession Number(s): [id number] cc: Molly Mata; TOM TRUJILLO NP Report Number: [id number]: Total DLP = 593.00 mGy-cm Reason for [...] 01/26/25 1139 DD/ 1111 TD/TT: 01/26/25 1134 Infrastructure Tech: Procedure Note Donotuseinterpreter, Image - 01/26/[address] [place] [address] [address] Scan Report Signed Patient: Sid RajanR #: [id number] : 1955cct:[id number] Age/Sex: 69 / FADM Date: 01/26/25 Loc: .ED Attending Dr: Ordering Physician: Molly Mata Date of Service: 01/26/25 Procedure(s): CT head/brain wo IV con Accession Number(s): [id number] cc: Molly Mata; TOM TRUJILLO NP Report Number: [id number]: Total DLP = 593.00 mGy-cm Reason for [...] 01/26/25 1139 DD/ 1111 TD/TT: 01/26/25 1134 Infrastructure Tech: [facility] External Provider IMG CT PROCEDURES Edited Result - Final * XR CERVICAL SPINE 3V (01/18/2025 3:10 PM EDT) Anatomical Region Laterality Modality Abdomen Radiographic Dawn ging 01/18/2025 3:10 PM EDT Narrative 01/18/2025 3:25 PM EDT [address] [address] XRay Report Signed Patient: Walt Rajan MR #: [id number] : 1955 Acct:[id number] Age/Sex: 69 / F ADM Date: 01/18/25 Loc: HO.HHCX Attending Dr: Marcela Crook MD Ordering Physician: Marcela Crook MD Date of Service: 01/18/25 Procedure(s): XR cervical spine 3V Accession Number(s): [id number] cc: TOM TRUJILLO NP; Marcela Crook MD [...] 01/18/25 1522 DD/ 1510 TD/TT: 01/18/25 1513 Infrastructure Tech: Procedure Note Donotuseinterpreter, Image - 01/18/2025 [place] [address] XRay Report Signed Patient: Kenyon Rajan #: [id number] : 4Acct:[id number] Age/Sex: 69 / FADM Date: 01/18/25 Loc: HO.HHCX Attending Dr: Marcela Crook MD Ordering Physician: Marcela Crook MD Date of Service: 01/18/25 Procedure(s): XR cervical spine 3V Accession Number(s): [id number] cc: TOM TRUJILLO NP; Marcela Crook MD [...] 01/18/25 1522 DD/ 1510 TD/TT: 01/18/25 1513 Infrastructure Tech: us Marcela Crook MD IMG XR PROCEDURES Edited Result - Final * (ABNORMAL) Lipid Panel, Standard (01/04/2025 1:20 PM EDT) Triglycerides 104 <150 mg/dL [facility] Comment:Desirable Triglyceri de: less than 150 mg/dLBorderline High Triglyceride 150-199 mg/dLHigh Triglyceride: 200-499 mg/dLVery High Triglyceride: greater than or equal to 5OO mg/dL Cholesterol 122 <200 mg/dL [facility] Comment:Desirable Cholestero l: less than 200 mg/dLBorderline High Cholesterol: 200-239 mg/dLHigh Cholesterol: greater than 239 mg/dL LDL Cholesterol Calculated 70 <100 mg/dL [facility] Comment:Desirable LDL: less than 100 mg/dLNear Optimal/Above Optimal LDL: 110- 129 mg/dLBorderline High LDL: 130-159 mg/dLHigh LDL: 160-189 mg/dLVery High LDL: greater than or equal to 190 mg/dL HDL Cholesterol 32(L) >40 mg/dL [facility] Comment:Desirable HDL: great er than 40 mg/dL Note: This HDL assay may give artificially low results in patients with liver disease. 01/04/2025 1:20 PM EDT 01/04/2025 4:05 PM EDT us Generic External Data Provider LAB BLOOD ORDERAB LES Final Result Performing Organization Address City/State/[facility] Co de Phone Number [facility] [address] [place] [phone] [phone] * BI Mammogram Screening Tomosynthesis Bilateral (10/26/2024 1:20 PM EDT) Anatomical Region Laterality Modality Breast Bilateral Mammography 10/26/2024 1:20 PM EDT Narrative 11/01/2024 2:28 PM EDT [address] [place] [address] Mammography Report Signed Patient: Walt Rajan MR #: [id number] : 1955 Acct:[id number] Age/Sex: 69 / F ADM Date: 10/26/24 Loc: LEE Attending Dr: Tom Trujillo NP Ordering Physician: TOM TRUJILLO NP Results: 1Negative Date of Service: 10/26/24 Follow Up: 1 [facility] From [facility] Mammogram Procedure(s): MM tomosynthesis screening BI Accession Number(s): [id number] cc: TOM TRUJILLO NP EXAMINATION: MM SCREENING [...] 11/01/24 1425 DD/ 1320 TD/TT: 10/26/24 1338 Infrastructure Tech: Procedure Note Donotuseinterpreter, Image - 11/01/2024 [facility] [address] [place] [address] Mammography Report Signed Patient: Sid RajanR #: [id number] : 4Acct:[id number] Age/Sex: 69 / FADM Date: 10/26/24 Loc: LEE Attending Dr: Tom Trujillo NP Ordering Physician: TOM TRUJILLO NPResults: 1Negative Date of Service: 10/26/24Follow Up: 1 Year From Orig inal Mammogram Procedure(s): MM tomosynthesis screening BI Accession Number(s): [id number] cc: TOM TRUJILLO NP EXAMINATION: MM SCREENING [...] 11/01/24 1425 DD/ 1320 TD/TT: 10/26/24 1338 Infrastructure Tech: Tom Stephen WEI IMLesley BI PROCEDURES Edited Result - Final * Colonoscopy (10/10/2021) Colonoscopy Normal Normal Historical Provider HEALTH MAINTENANCE Final Result from Last 3 Months or Most Recently Relevant to Health Maintenance Insurance [facility] STANDARD MEDICARE Care Teams Technical Assistance Consultant Relationship Specialty Start Date End Date Tom Trujillo ANP [address] [place] [phone] PCP - General Family Medicine 09/29/19 Everett Rojas MD [address] Floor [place], [place] Cardiology 04/21/24 Lindy Irene MD [address] [place] [address] Orthopaedic Surgery 03/22/25
--- OUTSIDE RECORDS SUMMARY | 2025-04-14 17:12 | XMS_ITS | Clinical Summary ---
Author Organization [facility] Address [address] [place] [address] Care Team Providers Care Health Information Management Director Name Role Phone Darius Tamayo MD Primary Care Provider [phone] Allergies Active Allergy Reactions Criticality Noted Date [...] BULK, MISC 2 Inhalations as needed. Active atorvastatin (LIPITOR) 20 mg tablet Take 1 tablet (20 mg total) by mouth once a day. 30 tablet 11 5 12/26/19 26 Active vitamin A 3,000 mcg (10,000 unit) capsule Take 1 capsule (10,000 Units total) by mouth once a day. 30 capsule 2 5 03/25/20 25 Active Problems Problem Noted Date Diagnosed Date [...] be d/t CARTWRIGHT vs. HCV. Follows w/ [facility] and had abd MRI to eval liver lesion 07/2022. 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 Overview (02/12/2025): EGDs via [facility] Paroxysmal atrial fibrillation 02/07/2016 Benign essential hypertension 11/25/2015 Chronic hepatitis C 11/25/2015 Encounters Date Type Department Care Team Description 03/18/2025 Results Follow-Up [facility] [address] [place] [address]30 Sabrina Dahl, RN 03/18/2025 Orders Only [facility] Transplant Department [address] [place] [address] 43788 Sabrina Dahl, RN Encounter for pre-transplant evaluation for liver transplant (Primary Dx); Chronic hepatitis C with cirrhosis ; Hepatocellular carcinoma 03/08/2025 Orders Only [facility] Transplant Department [address] [place] [address] 32346 Provider, MD Cem 03/02/2025 Orders Only [facility] Transplant Department [address] [place] [address] Rebecca Workman NP Hepatocellular carcinoma (Primary Dx); Awaiting liver transplant 03/02/2025 Results Follow-Up [facility] [address] [place] [address] Sabrina Dahl, MONAE 03/02/2025 Results Follow-Up [facility] [address] [place] [address] Sabrina Dahl RN 03/02/2025 Documentation [facility] Transplant Department [address] [place] [address]16 Nanette Bowen, MONAE ABO Dual Validation 03/02/2025 Documentation [facility] Transplant Department [address] [place] [address] 44878 Sabrina Dahl RN ABO Dual Validation 03/02/2025 External Result Entry [facility] Transplant Department [address] [place] [address] 26496 Sabrina Dahl, MONAE 03/02/2025 Orders Only [facility] Transplant Department [address] [place] [address] 08173 ProviderCem MD 03/02/2025 Abstract [facility] Transplant Department [address] [place] [address] 35771 Lauren Hancock MD 03/01/2025 Telephone [facility] Transplant Department [address] [place] [address] 46279 Sabrina Dahl, RN 02/26/2025 Orders Only [facility] Transplant Department [address] [place] [address] 01470 Sabrina Dahl, RN Encounter for pre-transplant evaluation for liver transplant (Primary Dx) 02/15/2025 Telephone [facility] Transplant Department [address] [place] [address] 56157 Sabrina Dahl RN 01/28/2025 Orders Only [facility] [address] [place] [address] 22162 Monica Suresh MD 01/22/2025 Refill [facility] [address] [place] [address] 08614 Lauren Hancock MD 01/20/2025 Refill [facility] [address] [place] [address] 86594 Lauren Hancock MD 01/18/2025 Telephone [facility] Transplant Department [address] [place] [address] 80245 Sabrina Dahl, RN Care Coordination 01/15/2025 3:15 PM EDT Office Visit [facility] [address] [place] [address] 48823 Nikko Pagan MD 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); Chronic hepatitis C with cirrhosis (HCC); Portal hypertension (HCC); HCC (hepatocellular carcinoma) (HCC); Atrial fib/flutter, transient (HCC) 01/15/2025 2:30 PM EDT Office Visit [facility] [address] [place] [address] 94207 Shaila Posey MD Encounter for pre-transplant evaluation for chronic liver disease (Primary Dx); Metabolic dysfunction-associate d steatohepatitis (MASH); Hepatocellular carcinoma (HCC); Chronic hepatitis C without hepatic coma (HCC); Screening examination for infectious disease; Positive CMV IgG serology; EBV seropositivity; Immune to hepatitis B; Immune to hepatitis A 01/15/2025 1:45 PM EDT Nutrition [facility] [address] [place] [address] Encounter for pre-transplant evaluation for liver transplant (Primary Dx) 01/15/2025 1:00 PM EDT Office Visit [facility] [address] [place] [address] Mihai Blank MD Encounter for pre-transplant evaluation for chronic liver disease (Primary Dx) 01/15/2025 12:15 PM EDT Social Work [facility] [address] [place] [address] Sandra Mcgregor, [facility] 01/15/2025 11:45 AM EDT Office Visit [facility] [address] [place] [address] Da Robb, MONAE Encounter for pre-transplant evaluation for liver transplant 01/15/2025 10:30 AM EDT - 01/15/2025 11:59 PM EDT Hospital Encounter [facility] Building Cardiac Ultrasound [address] [place] [address] Encounter for pre-transplant evaluation for liver transplant Discharge Disposition: Home or Self Care (01) 01/15/2025 Orders Only [facility] Transplant Department [address] [place] [address] Sabrina Dahl RN Encounter for pre-transplant evaluation [...] Info) Description 05/11/2025 4:00 PM EST Follow-Up [facility]plant [facility] [address] [place] [address] Lauren Hancock MD [address] [place] [address] 07/15/2025 1:00 PM EST Office Visit [facility] Building 4th floor Cardiology Medicine [address] [place] [address] Eye Specialist: Tavia Campos MD [address] [place], [place] [phone] Health Maintenance Due Date Last Done Comments Cologuard 1955 Colon Cancer Screening 1955 Colonoscopy 1953 FOBT / Fit Test 1953 Sigmoidoscopy 1955 Medicare AWV 1954 RSV Vaccine (60+ years old a nd patients) (1 - Risk 50-74 years 1-dose series) 08/27/2003 Mammogram 11/23/2019 11/22/2017 COVID-19 Vaccine (3 - [...] Additional history exists Procedures * Due to [place] [employer] law, this organization might not be sharing [...] for liver transplant from Last 3 Months or Most Recently Relevant to Health Maintenance Results * Due to [place] [employer] law, this organization might not be sharing [...] (03/01/2025 10:35 AM EDT) Sodium 144 mmol/L [facility] Potassium 3.4 [facility] Chloride 103 [facility] Carbon Dioxide 31 [facility] Glucose 86 [facility] BUN 22 mg/dL [facility] Creatinine 0.77 mg/dL [facility] Calcium 9.5 mg/dL [facility] Total Protein 6.9 g/dL [facility] Albumin 3.8 g/dL [facility] Bilirubin, Total 1.1 mg/dL [facility] Alkaline Phosphatase 40 U/L [facility] AST 37 U/L [facility] ALT 55 U/L [facility] WBC 4.1 10*3/uL [facility] Hgb 12.6 [facility] Hematocrit 40.0 % [facility] Platelets 105 10*3/uL [facility] INR 1.50 [facility] 03/01/2025 10:3 5 AM EDT Lauren Hancock MD LAB BLOOD ORDERABLES Fin al Result [facility] [address] [place] [address] [id number] * IMAGING - SCANNED (03/01/2025 10:01 AM [...] QTC Interval 413 ms MUSE EKG P [place] 51 degrees MUSE EKG R [place] 21 degrees MUSE EKG T Wave [place] 1 degrees MUSE EKG 01/15/2025 1:32 PM EDT 01/19/2025 10:59 PM EDT Impressions MUSE EKG - 01/19/2025 10:59 PM EDT POOR DATA QUALITY, INTERPRETATION MAY BE ADVERSELY AFFECTED SINUS BRADYCARDIA with pvcs and fusion complexes OTHERWISE NORMAL ECG NO PREVIOUS ECGS AVAILABLE Confirmed by Oswaldo Landa ([id number]) on 01/19/2025 10:59:21 PM Narrative Procedure Note Oswaldo Landa MD - 01/19/2025 IMPRESSION: POOR DATA QUALITY, INTERPRETATION MAY BE ADVERSELY AFFECTED SINUS BRADYCARDIA with pvcs and fusion complexes OTHERWISE NORMAL ECG NO PREVIOUS ECGS AVAILABLE Confirmed by Oswaldo Landa ([id number]) on 01/19/2025 10:59:21 PM Lauren Hancock MD ECG ORDERABLES Final Re sult MUSE EKG * TRANSTHORACIC ECHO (TTE) COMPLETE (01/15/2025 11:47 AM EDT) Pathologist [facility] BSA 1.65 m2 RIGHT ATRIAL PRESSURE 3 [...] Doppler. Myocardial deformation imaging was performed using sliceX. During the study the apical, parasternal, subcostal and suprasternal view was captured. Overall the study quality was adequate. STRESS ECHO OVERALL FINDINGS Normal RV size and systolic function. us Lauren Hancock MD CV ECHO PROCEDURES Final Result * (ABNORMAL) Comprehensive Metabolic Panel (12/22/2024 2:14 PM EDT) NA 141 135 - 145 mmol/L 12/22/2024 3:36 PM EDT [facility] K 3.9 3.5 - 5.3 mmol/L 12/22/2024 3:36 PM EDT [facility] Cl 101 98 - 107 mmol/L 12/22/2024 3:36 PM EDT [facility] CO2 27 22 - 32 mmol/L 12/22/2024 3:36 PM EDT [facility] Anion Gap 13 5 - 15 12/22/2024 3:36 PM EDT [facility] Glucose 85 65 - 99 mg/dL 12/22/2024 3:36 PM EDT [facility] Creatinine 0.77 0.50 - 1.20 mg/dL 12/22/2024 3:36 PM EDT [facility] Calcium 10.5 8.6 - 10.5 mg/dL 12/22/2024 3:36 PM EDT [facility] Total Protein 8.3(H) 6.0 - 8.0 g/dL 12/22/2024 3:36 PM EDT [facility] Albumin 3.9 3.5 - 5.2 g/dL 12/22/2024 3:36 PM EDT [facility] Bilirubin, Total 0.6 0.2 - 1.2 mg/dL 12/22/2024 3:36 PM EDT [facility] Alkaline Phosphatase 71 35 - 129 U/L 12/22/2024 3:36 PM EDT [facility] AST 35 10 - 40 U/L 12/22/2024 3:36 PM EDT [facility] ALT 30 10 - 40 U/L 12/22/2024 3:36 PM EDT [facility] BUN 12 7 - 23 mg/dL 12/22/2024 3:36 PM EDT [facility] eGFR 83 >=60 mL/min/1. 73m2 12/22/2024 3:36 PM EDT [facility] Comment:The estimated glomer ular [...] - 4.2 g/dL 12/22/2024 3:36 PM EDT [facility] A/G Ratio 0.9(L) 1.5 - 3.0 12/22/2024 3:36 PM EDT [facility] Blood Structure of peripheral vein / Unknown Venipuncture / Unknown 12/22/2024 2:14 PM EDT 12/22/2024 2:51 PM EDT us Lauren Hancock MD LAB BLOOD ORDERABLES Fin al Result [facility] [address] [place] [address], from Last 3 Months or Most Recently Relevant to Health Maintenance Insurance [address] [place], [place] [id number] [place], [place] [address]HEALTH MEDICARE [address] [place] [address] [facility] Advance Directives Documents on File Type Date Recorded 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
--- OUTSIDE RECORDS SUMMARY | 2025-04-14 17:12 | XMS_ITS | Encounter Summary ---
Author Organization [facility] Address [address] [place] [address] Care Team Providers Care Digital Tech Name Role Phone Darius Tamayo MD Primary Care Provider [phone] Encounter Details Date Type Department Care Team (Late st Contact Info) Description 03/02/2025 Results Follow-Up [facility] Transplant Services [address] [place] [address] Sabrina Dahl RN Social History Tobacco Use [...] Info) Description 05/11/2025 4:00 PM EST Follow-Up [facility] [address] [place] [address] Lauren Hancock MD [address] [place] [address] 07/15/2025 1:00 PM EST Office Visit [facility] 4th floor Cardiology Medicine [address] [place] [address] Teaching Artist: Tavia Campos MD [address] [place] [address] documented as of this encounter Visit Diagnoses Not on filedocumented in this encounter Care Teams Digital Tech Relationship Specialty Start Date End Date Darius Tamayo MD [address] [place] [address]682 PCP - General Gastroenterology 12/22/24 documented as of this encounter
--- OUTSIDE RECORDS SUMMARY | 2025-04-14 17:12 | XMS_ITS | Encounter Summary ---
Author Organization [employer] Address [address] [facility] 7t [place] [address] Care Team Providers Care Director Of Investigations Name Role Phone Sudha Mitchell Primary Care Provider [phone] Everett Rojas MD Unavailable [phone] Lindy Irene MD Unavailable [phone] Reason for Visit * Reason Onset Date Comments chart prep 04/14/2025 Encounter Details Date Type Department Care Team ([facility] st Contact Info) Description 04/14/2025 Telephone [facility] [address] [place] [address] Sudha Mitchell ANP [address] [place], [place] [phone] chart prep Social History Tobacco Use Types [...] Telephone Encounter - Jackeline Fuentes [place] - 04/14/2025 9:11 AM EST Chart Prep Labs: done Images: done Referrals: complete Vaccines due: Covid, Hep A, RSV, and Zoster Screenings: colonoscopy Overdue care gaps: SBIRT documented in this encounter Plan of Treatment Upcoming Encounters Date Type Department Care Team (Late st Contact Info) Description 04/15/2025 10:30 AM EST Office Visit [facility] [address] [place] [address] Sudha Mitchell ANP [address] [place] [address] documented as of this encounter Visit Diagnoses Not on filedocumented in this encounter Additional Health Concerns Assessment Noted Time PHQ-9 Depression Total Score: 7 10/08/19 25 7:52 AM EDT documented as of this encounter Care Teams Director Of Investigations Relationship Specialty Start Date End Date Sudha Mitchell ANP [address] [place] [address] PCP - General Family Medicine 09/29/19 Everett Rojas MD [address] 3rd [place] [address] Cardiology 04/21/24 Lindy Irene MD [address] [place] [address] Orthopaedic Surgery 03/22/25 documented as of this encounter
--- OUTSIDE RECORDS SUMMARY | 2025-04-14 17:12 | XMS_ITS | Encounter Summary ---
Author Organization [facility] Address [address] [place] [address] Care Team Providers Care Mechanic Sound Technician Name Role Phone Darius Tamayo MD Primary Care Provider [phone] Encounter Details Date Type Department Care Team (Late st Contact Info) Description 12/22/2024 Education [facility] Transplant Department [address] [place] [address] Sabrina Dahl RN Social History Tobacco Use [...] Follow-Up [facility] Transplant Services [address] [place] [address] Lauren Hancock MD [address] [place] [address] 07/15/2025 1:00 PM EST Office Visit [facility] Building 4th floor Cardiology Medicine [address] [place] [phone] Decal Applier: Tavia Campos MD [address] [place] [address] documented as of this encounter Visit Diagnoses Not on filedocumented in this encounter Care Teams Mechanic Sound Technician Relationship Specialty Start Date End Date Darius Tamayo MD [address] [place] [phone] PCP - General Gastroenterology 12/22/24 documented as of this encounter
== END 2025-04-14 15:01 | disposition home or self-care (01) ==
LOC: HO.HOS 14:21
PROVIDERS: PCP Nurse Practitioner Primary Care
DX: M65.331 Trigger finger, right middle finger (principal); M65.332 Trigger finger, left middle finger; M24.541 Contracture, right hand
CPT/HCPCS: 99024

== ENCOUNTER → 2025-04-14 14:20 | Outpatient (BNVA) | payer MEDICARE, MEDICAID, SELFPAY | PROVIDERS: PCP Nurse Practitioner Primary Care | DX: M65.331 Trigger finger, right middle finger (principal); M65.332 Trigger finger, left middle finger; M24.541 Contracture, right hand; Z85.05 Personal history of malignant neoplasm of liver; Z87.891 Personal history of nicotine dependence | CPT/HCPCS: 99212 ==

== ENCOUNTER 2025-04-19 07:27 | Day surgery (SDC) | payer MEDICARE, MEDICAID, SELFPAY ==
[2025-04-13 10:55] VITALS: BMI 31.5
--- NOTE | 2025-04-13 12:43 | P.CONAN_ITS ---
Documented by User: Crystal Montalvo NP 04/13/25 13:04 HPI - Anesthesia Eval Consult details Narrative: 69yo F for Right Manipulation of Middle Finger,possible Release of Volar Plate, Middle Finger Trigger Release, 04/19/25 Cardiac optimized. Follows [facility] Cardiology for PAF. s/p ablation 04/2024 without recurrence. Anticoag d/c'd d/t liver disease Hepatocellular carcinoma s/p TACE 11/2024 at [facility]. Awaiting f/u appointment. Also following [facility] Oncology, no systemic treatment needed at this time Longstanding cirrhosis 2/2 Hep-C, CARTWRIGHT - follows [facility] GI awaiting appt with [facility] transplant team (No varices on EGD 2023, no ascites per GI office eval 03/2025 PMFSH Active Problems Active Problems: All Active Problems Preoperative cardiovascular examination (Acute) Hepatocellular carcinoma (Acute) Contracture of joint of finger of right hand (Acute) Trigger finger, left middle finger (Acute) Trigger finger, right middle finger (Acute) Encounter for monitoring anti-arrhythmic therapy (Acute) COVID-19 (Acute) Essential hypertension (Acute) Hemorrhage of gastrointestinal tract, unspecified (Acute) PAF (paroxysmal atrial fibrillation) (Acute) Tubular adenoma of colon (Acute) Low vitamin D level (Acute) Cirrhosis of liver (Acute) Past Medical History Medical History Hepatitis C History of chemotherapy History of liver cancer Arthritis Hx of transfusion of packed red blood cells HTN (hypertension) Hemorrhage of gastrointestinal tract, unspecified PAF (paroxysmal atrial fibrillation) Tubular adenoma of colon Low vitamin D level Atrial fibrillation Cirrhosis of liver Asthma Family History Family History Father No problems noted. Mother No problems noted. Paternal Aunt Breast cancer Mother Heart problem Family history of problems with anesthesia: No Surgical History Surgical History History of cardiac ablation for atrial fibrillation (~04/2024) Hx of cataract surgery History of eyelid surgery History of esophagogastroduodenoscopy (EGD) Hx of colonoscopy History of total abdominal hysterectomy and bilateral salpingo-oophorectomy History of 3 sections History of Problems with Anesthesia: No Social History Social History Household Members: Children Are you a primary resident care manager rn to a significant other at home: No Do you presently have visiting nurse or other home services: No Alcohol intake: never Patient Tobacco Use Status: Former Tobacco user Tobacco use type: Cigarette Years Smoked: 5 +/- Use of substances other than those prescribed or required for medical reasons: No Have you been hit, kicked, punched, or otherwise hurt by someone within the past year? 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 Meds Allergies Allergy/AdvReac Type Severity Reaction Status Date / Time rivaroxaban (From XARELTO) Allergy Intermediate GI BLEEDING Verified 04/19/25 08:00 SEAFOOD Allergy Intermediate RASH Uncoded 04/14/25 14:38 Home Medications ?Medication ?Instructions ?Recorded ?Confirmed ?Last Taken ?Type montelukast 10 mg tablet 10 mg PO BEDTIME 01/31/21 Unknown History albuterol sulfate 90 mcg/actuation 2 puff PO Q4-6H PRN sob 05/15/21 04/13/25 Unknown History aerosol inhaler (ProAir HFA) calcium 600 mg (as 1 tab PO DAILY 01/22/2207/07 Unknown History carbonate)-vitamin D3 10 mcg (400 unit) tablet lidocaine 5 % topical patch 1 - 2 patch topical DAILY PRN pain 01/22/22 04/13/25 Unknown History (Lidoderm) tramadol 50 mg tablet 50 - 100 mg PO Q12H PRN Pain 01/22/22 04/13/25 Unknown History (Scale Score 7-10) mometasone 100 mcg/actuation HFA 1 puff inhalation BID 04/19/25 04/19/25 04/19/25 06:45 History aerosol inhaler (Asmanex HFA) Exam Height,Weight and Vital Signs: Height 4 ft 11 in Weight 70.76 kg Pertinent Lab Results Pertinent Lab Results: Laboratory Tests 03/01/25 10:35 Sodium 144 Potassium 3.4 Chloride 103 Carbon Dioxide 31 H BUN 22 H Creatinine 0.77 Narrative Narrative: EKG 11/2024 Vent. Rate : 66 BPM Atrial Rate : 66 BPM P-R Int : 182 ms QRS Dur : 94 ms QT Int : 370 ms P-R-T Axes : 53 33 20 degrees QTcB Int : 387 ms Normal sinus rhythm Normal ECG When compared with ECG of 29-Dec-2023 11:12, No significant change was found ECHO 2023 Conclusions: - The left ventricular systolic function is normal. The calculated ejection fraction is 60% by biplane method. - No obvious valvular pathology seen on this study. Assessment and Plan Assessment Anesthesia Assessment: Chart Reviewed Final Anesthetic Review Family History of Problems with Anesthesia: No History of Problems with Anesthesia: No Documented by User: Vera Brice MD 04/19/25 10:10 [facility] Past Medical History Medical History Hepatitis C History of chemotherapy History of liver cancer Arthritis Hx of transfusion of packed red blood cells HTN (hypertension) Hemorrhage of gastrointestinal tract, unspecified PAF (paroxysmal atrial fibrillation) Tubular adenoma of colon Low vitamin D level Atrial fibrillation Cirrhosis of liver Asthma Family History Family History Father No problems noted. Mother No problems noted. Paternal Aunt Breast cancer Mother Heart problem Surgical History Surgical History History of cardiac ablation for atrial fibrillation (~04/2024) Hx of cataract surgery History of eyelid surgery History of esophagogastroduodenoscopy (EGD) Hx of colonoscopy History of total abdominal hysterectomy and bilateral salpingo-oophorectomy History of 3 sections Social History Social History Household Members: Children Are you a primary resident care manager rn to a significant other at home: No Do you presently have visiting nurse or other home services: No Alcohol intake: never Patient Tobacco Use Status: Former Tobacco user Tobacco use type: Cigarette Years Smoked: 5 +/- Use of substances other than those prescribed or required for medical reasons: No Have you been hit, kicked, punched, or otherwise hurt by someone within the past year? 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 Meds Allergies Allergy/AdvReac Type Severity Reaction Status Date / Time rivaroxaban (From XARELTO) Allergy Intermediate GI BLEEDING Verified 04/19/25 08:00 SEAFOOD Allergy Intermediate RASH Uncoded 04/14/25 14:38 Home Medications ?Medication ?Instructions ?Recorded ?Confirmed ?Last Taken ?Type montelukast 10 mg tablet 10 mg PO BEDTIME 01/31/21 Unknown History albuterol sulfate 90 mcg/actuation 2 puff PO Q4-6H PRN sob 05/15/21 04/13/25 Unk nown History aerosol inhaler (ProAir HFA) calcium 600 mg (as 1 tab PO DAILY 01/22/2207/07 Unknown History carbonate)-vitamin D3 10 mcg (400 unit) tablet lidocaine 5 % topical patch 1 - 2 patch topical DAILY PRN pain 01/22/22 04/13/25 Unknown History (Lidoderm) tramadol 50 mg tablet 50 - 100 mg PO Q12H PRN Pain 01/22/22 04/13/25 Unknown History (Scale Score 7-10) mometasone 100 mcg/actuation HFA 1 puff inhalation BID 04/19/25 04/19/25 04/19/25 06:45 History aerosol inhaler (Asmanex HFA) Exam Airway Mallampati Class: III (small mouth) TM Dist: >3cm Neck ROM: Full Loose/Missing/Broken Teeth: No Heart: RRR Lungs: CTA Assessment and Plan Assessment Anesthesia Assessment: Anesthesia Plan Discussed Final Anesthetic Review NPO: Yes ASA Class: III Final Preanesthetic Review: Meds/Allgs Chart Reviewed, Consent Obtained/Reviewed and Anes Risks/Benef Reviewed Patient Risk: Intermediate Procedure Risk: Low Anesthetic Plan Anesthetic Plan: GA Disposition: Standard PACU
[2025-04-19] VITALS (14 sets, daily range): BP systolic 134–151; BP diastolic 44–60; PULSE 65–79; RESP 14–22; TEMP 36.2–36.6; O2SAT 95–99; BMI 30.9
[2025-04-19] MEDS: Lactated Ringers 1,000 ML 100 ML IVCONT (08:27)
[2025-04-19 08:39] LABS: Hematocrit 37.6 % (37.0-47.0); Hemoglobin 12.3 g/dl (12.0-16.0); Mean Corpuscular HGB Conc 32.7 g/dl (31.0-35.0); Mean Corpuscular Hemoglobin 29.6 pg (27.0-33.0); Mean Corpuscular Volume 90.4 fL (80.0-98.0); NRBC Abs Auto 0.000 X10*3/uL (0.0-0.012); NRBC Pct Auto 0.0 /100WBC (0.0-0.2); Platelet Count 116 X10*3/uL (160-400); Red Blood Count 4.16 X10*6/uL (4.20-5.50); White Blood Count 3.4 X10*3/uL (4.8-10.8)
[2025-04-19 08:46] LABS: INTERNATIONAL NORM RATIO 1.2 (0.9-1.1); Prothrombin Time 14.3 SEC (11.2-13.5)
--- NOTE | 2025-04-19 09:24 | MHC.SHP ---
Pre-Procedural Eval Section A - 24 Hr Update-Section A only Date of Service: 04/19/25 The patient is an INPATIENT: No Changes since office visit: No Cold of Flu in the past 2 weeks, No New Medical Problems, No Changes in Medication and No Patient answered all questions The patient has been examined within 24 hours of the surgical procedure. The History & Physical has been completed within 30 days and I have reviewed it.: Yes Section B - Complete if H&P > 30 days Chief Complaint: Contracture, right hand,trigger finger Allergies: Allergies Allergy/AdvReac Type Severity Reaction Status Date / Time rivaroxaban (From XARELTO) Allergy Intermediate GI BLEEDING Verified 04/19/25 08:00 SEAFOOD Allergy Intermediate RASH Uncoded 04/14/25 14:38 Plan I have reviewed the history and physical and performed a pertinent physical examination on my patient. No changes have occurred unless specified. Time Spent With Patient Time: Total time managing care of this patient today ____ minutes.
--- NOTE | 2025-04-19 09:25 | W.PM.OPN ---
Operative Note Operative Note Date of Service: 04/19/25 Narrative: Operative Note Narrative: Preop diagnosis: 1. Possible locked right middle finger trigger finger 2. Right middle finger PIP flexion contracture Postop diagnosis: 1. Locked right middle finger trigger finger?, with adherence of the FDS tendon within and to the flexor tendon sheath 2. Soft tissue mass found with in and about the flexor tendon sheath beneath the anterior and A3 pulleys. 3. Right middle finger PIP flexion contracture? Procedure: 1. Right middle finger A1 annita release 2. Right middle finger FDS tenolysis and excision of soft tissue mass from within the tendon sheath 3. Right middle finger closed manipulation of the PIP joint 4. Right middle finger flexor digitorum superficialis tenotomy of the ulnar slip 5. Right middle finger Release of volar plate to release the fixed flexion contracture of PIP joint Surgeon: Lindy Irene MD Box Covering Machine Operator: None Anesthesia: General Anesthesia none Findings: Thickened A1 and A2 pulleys, the FDS tendon was found to be adherent to the overlying flexor tendon sheath and A1 annita. There was yellowish red soft tissue mass about the flexor tendon sheath and within the flexor tendon sheath between the A2 and A4 pulleys. With a significant thickening of the A2 annita the decision was made to perform a tenotomy of the ulnar slip of the FDS tendon. This did help with gliding of the tendons beneath the A2 annita but we still had a PIP flexion contracture. After release of the PIP joint volar plate I was able to bring the PIP joint into full extension. Implants: None Tourniquet time: 34 minutes EBL: 5.0 ml Specimen: soft tissue mass from within an about the right middle finger flexor tendon sheath sent for histopathology Drains: None Complications: None Disposition: Brought to the recovery room in stable condition Plan: Follow-up in 10-14 days for wound check, suture removal to check histopathology. Begin active and passive range of motion and possibly OT hand therapy, with nighttime splinting for about 4-6 weeks Indications: The patient is a 69 year old woman with a possibly locked right middle finger trigger finger, and a right middle finger PIP flexion contracture . The risks and benefits of operative treatment, including but not limited to risk of damage to blood vessels, nerves, tendons, infection, recurrence, persistent pain or numbness, incomplete resolution of preoperative symptoms, or need for further surgery were discussed with the patient and they wished to proceed with surgery. Procedure: Once consent was obtained patient was brought back to the operating suite and placed in the operating table in a supine position. Perioperative antibiotics and anesthesia was administered by the anesthesia team. A tourniquet was applied to the proximal aspect of the right upper extremity and the limb was prepped and draped in a standard surgical fashion. The limb was elevated exsanguinated with Esmarch bandage and the tourniquet inflated to 250 mm of mercury for a total tourniquet time of 34 minutes. A 1.5 cm oblique incision was made centered over the A1 annita of the right middle finger . The incision was made through the skin to the subcutaneous tissues using a #15 blade. Careful dissection was made down to the level of the A1 annita using tenotomy scissors, with care being taken to protect the nearby neurovascular structures. A longitudinal incision was made in the A1 annita 1st using a #15 blade, then using tenotomy scissors under direct visualization. The A1 annita was noted to be thickened. Upon release of the A1 annita we found that the FDS tendon was adherent to the inner surface of the A1 annita in the flexor tendon sheath. We then performed a tenolysis freeing up the FDS tendon from within the flexor tendon sheath at the A1 and A2 annita levels. I then performed a closed manipulation of the PIP joint in the attempt to release the flexion contracture of the joint. Unfortunately, we still had a significant flexion contracture, and thus I made the decision to proceed with an open flexion contracture release. A Anjum incision was made over the volar aspect of the left middle finger about the PIP joint. The incision was made through the skin to the subcutaneous tissues. I then dissected down to the level of the flexor tendon sheath. I did discover some yellowish red soft tissue masses about the outside of the flexor tendon sheath in this area. I excised these masses and put them on some Telfa on the back table. I then opened the flexor tendon sheath by incising through the A3 annita. Some of this yellowish red material was also found within the flexor tendon sheath and I excised this material performing a tenolysis in this area. It was again placed on the back table to then be sent for histopathology. The A2 annita was also noted to be significantly thickened. Manipulating the PIP joint did not improve our flexion contracture. I decided to proceed with a tenotomy of the ulnar slip of the FDS tendon. This was done by incising the ulnar slip at its insertion point using a 15. Blade. I then incised the connection between the ulnar and radial slips of the FDS tendon longitudinally using a 15. Blade and iris scissors. I was then able to withdraw the ulnar slip into the A1 annita area and then excise it by bevelling my incision through the ulnar slip at the more proximal aspect of the FDS tendon. This did allow for improved motion of the FDS and FDP tendons to the A2 annita. It also improved the D IP flexion contracture. However we still had a significant PIP joint flexion contracture. I then retracted the FDS and FDP tendons radially exposing the volar surface of the PIP joint. I released the proximal aspect of the volar plate and accessory collateral ligaments using a 15. Blade. This then allowed me to bring the PIP joint into full extension. The tourniquet was deflated and hemostasis obtained with a brief period of local pressure. The wound was copiously irrigated with normal saline. The skin edges were reapproximated with 5-0 nylon suture. A digital block was performed with some 1% lidocaine with epinephrine for postop pain control. A sterile dressing and a volar splint holding the middle finger in extension were then applied. The patient appears to have tolerated the procedure well and with no complications. All digits were well vascularized conclusion of the case.
--- NOTE | 2025-04-19 11:14 | W.PM.OPN ---
Operative Note Operative Note Date of Service: 04/19/25
[2025-04-19] MEDS: oxyCODONE HCl Immed Release 5 MG TABLET PO (11:45)
== END 2025-04-19 12:40 | disposition home or self-care (01) ==
PROVIDERS: Nurse Practitioner; PCP Nurse Practitioner Primary Care; Visit Provider Orthopaedic Surgery
PROC: (CPT 26440; principal; 2025-04-19 09:30)
PROC: (CPT 26055; 2025-04-19 09:30)
DX: M65.331 Trigger finger, right middle finger (principal); M79.644 Pain in right finger(s); M24.541 Contracture, right hand; M79.89 Other specified soft tissue disorders; I48.91 Unspecified atrial fibrillation; I48.0 Paroxysmal atrial fibrillation; C22.9 Malignant neoplasm of liver, not specified as primary or secondary; K74.60 Unspecified cirrhosis of liver; B19.10 Unspecified viral hepatitis B without hepatic coma; E55.9 Vitamin D deficiency, unspecified; J45.909 Unspecified asthma, uncomplicated; Z79.01 Long term (current) use of anticoagulants; Z79.899 Other long term (current) drug therapy; Z88.8 Allergy status to other drugs, medicaments and biological substances; Z98.890 Other specified postprocedural states; Z87.891 Personal history of nicotine dependence; Z56.0 Unemployment, unspecified
CPT/HCPCS: 26440; 26055; 26455; 36415; 85027; 85610; 88304; J0690; J2003; J2004; J2704; J2795; J3010

== ENCOUNTER → 2025-04-19 07:27 | Outpatient (BNV) | payer MEDICARE, MEDICAID, SELFPAY | PROVIDERS: PCP Nurse Practitioner Primary Care; Visit Provider Orthopaedic Surgery | DX: M65.331 Trigger finger, right middle finger (principal); M24.541 Contracture, right hand | CPT/HCPCS: 26055; 26160; 26455; 26525 ==

== ENCOUNTER 2025-05-05 09:49 | Outpatient (AMB) | payer MEDICARE, MEDICAID, SELFPAY ==
--- NOTE | 2025-05-05 09:50 | A.OFFVIS_ITS ---
Vital Signs 05/05/25 09:51 Height 4 ft 11 in Weight 151 lb BMI 30.5 Intake Visit Reasons: PO RT MF manipulation/trigger 04/19/25 AR Intake Note: Walt is a 69 year old right hand dominant female who presents today for a Post-Operative Visit status post Right Middle Finger PIP Manipulation & Trigger Release, DOS: 04/19/[address] Irene. Patient reports she is having trouble making a fist. She is tender to touch. She has taken Tylenol PRN with minimal relief. She states she did not take the Percocet we prescribed. Sutures removed and steri strips applied. Allergies rivaroxaban (From XARELTO) Allergy (Intermediate, Verified 04/19/25 08:00) GI BLEEDING SEAFOOD Allergy (Intermediate, Uncoded 04/14/25 14:38) RASH HPI HPI PO RT MF manipulation/trigger 04/19/25 AR: Details: Walt is a 69 year old right hand dominant female who presents today for a Post-Operative Visit status post Right Middle Finger PIP Manipulation & Trigger Release, DOS: 04/19/[address] Irene. Patient reports she is having trouble making a fist. Patient reports that her range of motion is only improved minimally from prior to surgery, but she has been trying to improve her motion at home. She is mildly tender to touch. She has taken Tylenol PRN with minimal relief. She states she did not take the Percocet we prescribed. Sutures removed and steri strips applied. [facility] Medical History Hepatitis C History of chemotherapy History of liver cancer Arthritis Hx of transfusion of packed red blood cells HTN (hypertension) Hemorrhage of gastrointestinal tract, unspecified PAF (paroxysmal atrial fibrillation) Tubular adenoma of colon Low vitamin D level Atrial fibrillation Cirrhosis of liver Asthma Surgical History History of cardiac ablation for atrial fibrillation (~04/2024) Hx of cataract surgery History of eyelid surgery History of esophagogastroduodenoscopy (EGD) Hx of colonoscopy History of total abdominal hysterectomy and bilateral salpingo-oophorectomy History of 3 sections Family History Father No problems noted. Mother No problems noted. 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 Review of Systems Const All systems reviewed & are unremarkable except as noted in HPI and below Physical Exam Vital Signs: BMI result Body Mass Index 30.5 Const General: cooperative, healthy appearing and no acute distress Orientation/consciousness: patient oriented x3 HEENT Head: Yes normocephalic and Yes atraumatic Eyes EOM: EOMs intact bilaterally Resp Effort & Inspection: normal respiratory effort and able to speak in complete sentences Cardio Jugular venous distension: no JVD Skin General skin exam: turgor normal Rashes: no rashes Neuro General: patient oriented x3 Extrem Other: Evaluation of Right Upper Extremity: The patient is alert, oriented, and in no acute distress Neuro: Median, Ulnar, Radial nerves motor and sensory intact and sensation is normal to the tips of all digits Vascular: Cap refill brisk ROM: With significant encouragement, patient is able to get close to making a closed fist with the right middle finger No further flexion contracture noted Patient is able to flex and extend all other digits of the right hand fully and with minimal difficulty Patient is able to fully extend the right middle finger with minimal difficulty Skin: Well approximated and well healing incision sites noted over the A1 annita and over the volar middle and proximal phalanges of the right middle finger No lacerations or abrasions. General: No Ecchymosis. No Erythema or evidence of infection. Psych Appearance: grossly normal Affect: normal affect Attitude: cooperative Assessment & Plan Assessment & Plan (1) Trigger finger, right middle finger: Code(s): M65.331 - Trigger finger, right middle finger Category: Medical (2) Contracture of joint of finger of right hand: Code(s): M24.541 - Contracture, right hand Category: Medical Plan 1. Status post right middle finger trigger release and closed manipulation DOS 04/19/2025 Patient appears to be recovering fairly well postoperatively Patient is educated about the typical recovery course Due to what appears to be significant ongoing stiffness of the right middle finger, OT referral was placed urgently so the patient can be seen as soon as possible Patient is provided with exercises to work on range of motion of the right hand in the meantime Patient understands this and is amenable to this plan Follow-up in 4-6 weeks for [id number] check, sooner with any acute concerns Orders: Orders OT Evaluation and Treatment Today M24.541 - Contracture, right hand, M65.331 - Trigger finger, right middle finger Coding Level of Care Code Global (27517) Diagnoses Trigger finger, right middle finger M65.331 Contracture of joint of finger of right hand M24.541
[2025-05-05 09:51] VITALS: BMI 30.5
--- OUTSIDE RECORDS SUMMARY | 2025-05-05 09:54 | XMS_ITS | Encounter Summary ---
Author Organization [employer] Address [address] [place] [address] 7t [place] [address] Care Team Providers Care Axminster Weaver Name Role Phone Sudha Mitchell Primary Care Provider [phone] Everett Rojas MD Unavailable [phone] Lindy Irene MD Unavailable [phone] Reason for Visit * Reason Onset Date Comments Med Refill 11/23/2022 Encounter Details Date Type Department Care Team (Late st Contact Info) Description 11/23/2022 Telephone [facility] MEDICINE [address] [place] [address] Sudha Mitchell ANP [address] [place], [place] [id number] Med Refill Social History Tobacco Use Types [...] documented in this encounter Plan of Treatment Not on file documented as of this encounter Visit Diagnoses Not on filedocumented in this encounter Care Teams Axminster Weaver Relationship Specialty Start Date End Date Sudha Mitchell ANP [address] [place] [address] PCP - General Family Medicine 09/29/19 Everett Rojas MD [address] 3rd [place] [address] Cardiology 04/21/24 Lindy Irene MD [address] [place] [address] Orthopaedic Surgery 03/22/25 documented as of this encounter
--- OUTSIDE RECORDS SUMMARY | 2025-05-05 09:54 | XMS_ITS | Encounter Summary ---
Author Organization [employer] Address [address] [facility] 7t [place] [address] Care Team Providers Care Excavating Machine Operator Name Role Phone Sudha Mitchell Primary Care Provider [phone] Everett Rojas MD Unavailable [phone] Lindy Irene MD Unavailable [phone] Reason for Visit * Reason Comments Med Refill Encounter Details Date Type Department Care Team (Late st Contact Info) Description 09/18/2023 Refill [facility] MED & PEDS [address] [place] [address] Sudha Mitchell ANP [address] [place] [address] Lumbago of lumbar region with sciatica Social [...] as of this encounter Plan of Treatment Not on file documented as of this encounter Visit Diagnoses Diagnosis Lumbago of lumbar region with sciatica documented in this encounter Care Teams Excavating Machine Operator Relationship Specialty Start Date End Date Sudha Mitchell ANP [address] [place] [address] PCP - General Family Medicine 09/29/19 Everett Rojas MD [address] 3rd [place] [address] Cardiology 04/21/24 Lindy Irene MD [address] [place] [address] Orthopaedic Surgery 03/22/25 documented as of this encounter
--- OUTSIDE RECORDS SUMMARY | 2025-05-05 09:54 | XMS_ITS | Encounter Summary ---
Author Organization [facility] Address [address] [place] [address] Care Team Providers Care Dye Operator Name Role Phone Darius Tamayo MD Primary Care Provider [phone] Encounter Details Date Type Department Care Team (Late st Contact Info) Description 03/18/2025 Results Follow-Up [facility] Transplant Services [address] [place] [address] Sabrina Dahl RN Social History Tobacco Use [...] Department Care Team (Late Contact Info) Description 05/11/2025 4:00 PM EST Follow-Up [facility] Transplant Services [address] [place] [address] Lauren Hancock MD [address] [place] [address] 07/15/2025 1:00 PM EST Office Visit [facility] 4th floor Cardiology Medicine [address] [place] [address] Clay Machine Operator: Tavia Campos MD [address] [place] [address] Scheduled Procedures Name Priority Associated Diagnoses Date/Ti me UPPER ENDOSCOPY; DIAGNOSTIC WITH BRUSH/WASH (SP) WITH POSSIBLE MODERATE SEDATION Chronic hepatitis C with cirrhosis Hepatocellular carcinoma Awaiting liver transplant documented as of this encounter Visit Diagnoses Not on filedocumented in this encounter Care Teams Dye Operator Relationship Specialty Start Date End Date Darius Tamayo MD [address] [place] [address] PCP - General Gastroenterology 12/22/24 documented as of this encounter
--- OUTSIDE RECORDS SUMMARY | 2025-05-05 09:54 | XMS_ITS | Encounter Summary ---
Author Organization [employer] Address [address] [place] [address] 7t [place] [address] Care Team Providers Care Office Services Associate Name Role Phone Sudha Mitchell Primary Care Provider Everett Rojas MD Unavailable [phone] Lindy Irene MD Unavailable [phone] Reason for Visit * Reason Comments Med Refill Encounter Details Date Type Department Care Team (Late st Contact Info) Description 06/22/2022 Refill [facility] MEDICINE [address] [place] [address] Sudha Mitchell ANP [address] [place] [address] Lumbago of lumbar region with sciatica Social [...] sciatica documented in this encounter Care Teams Office Services Associate Relationship Specialty Start Date End Date Sudha Mitchell ANP [address] [place] [address] PCP - General Family Medicine 09/29/19 Everett Rojas MD [address] 3rd [place] [address] Cardiology 04/21/24 Lindy Irene MD [address] [place] [address] Orthopaedic Surgery 03/22/25 documented as of this encounter
--- OUTSIDE RECORDS SUMMARY | 2025-05-05 09:54 | XMS_ITS | Encounter Summary ---
Author Organization [employer] Address [address] [place] [address] 7t [place] [address] Care Team Providers Care Purchaser Name Role Phone Sudha Mitchell Primary Care Provider Everett Rojas MD Unavailable [phone] Lindy Irene MD Unavailable [phone] Reason for Visit * Reason Comments Med Refill Encounter Details Date Type Department Care Team (Late st Contact Info) Description 05/02/2022 Refill [facility] MED & PEDS [address] [place], [place] [phone] Sudha Mitchell ANP [address] [place] [address] Cervicalgia Social History Tobacco Use Types Packs/Day [...] Cervicalgia documented in this encounter Care Teams Purchaser Relationship Specialty Start Date End Date Sudha Mitchell ANP [address] [place] [address] PCP - General Family Medicine 09/29/[address] [place] [address] Cardiology 04/21/24 Lindy Irene MD [address] [place] [address] Orthopaedic Surgery 03/22/25 documented as of this encounter
--- OUTSIDE RECORDS SUMMARY | 2025-05-05 09:54 | XMS_ITS | Encounter Summary ---
Author Organization [employer] Address [address] [place] [address] 7t [place] [address] Care Team Providers Care Monologist Name Role Phone Sudha Mitchell Primary Care Provider Everett Rojas MD Unavailable [phone] Lindy Irene MD Unavailable [phone] Reason for Visit * Reason Comments Med Refill Encounter Details Date Type Department Care Team (Late st Contact Info) Description 08/14/2022 Refill [facility] [address] [place] [address] [facility] [address] [place] [address] Lumbago of lumbar region with sciatica Social [...] sciatica documented in this encounter Care Teams Monologist Relationship Specialty Start Date End Date Sudha Mitchell ANP [address] [place] [address] PCP - General Family Medicine 09/29/19 Everett Rojas MD [address]rd [place] [address] Cardiology 04/21/24 Lindy Irene MD [address] [place] [address] Orthopaedic Surgery 03/22/25 documented as of this encounter
--- OUTSIDE RECORDS SUMMARY | 2025-05-05 09:55 | XMS_ITS ---
Author Organization [facility] Address [address] [place] [address] Care Team Providers Care Production Team Advisor Name Role Phone Darius Tamayo MD Primary Care Provider [phone] Transplant Episode Liver Candidate [facility] ([place], [place]) [facility] Center waitlisted on 03/02/2025 Marked as Active on 03/02/2025 Liver CoordinatorSabrina Dahl RN Phone: N/A Fax: N/A Email: N/A Scores Score Value Updated Expires Exceptions/Rodeo sons CPRA Not available UNOS MELD 11 03/02/2025 05/31/2025 MELD (Calc) 11 03/01/2025 [place] Organ Diagnosis Organ Primary Contributory Liver Primary Liver Malign kary: Hepatoma (HCC) and Cirrhosis 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) Infection History Noted Survival Infection Treatment Organism Resolved 11/25/2015 Chronic hepatitis C Care Team Name Role Phone Fax Email Sabrina Dahl RN Liver Coordinator N/A N/A N/A Lauren Hancock MD Trailer Truck Driver [phone] Rayna [email or web address] Darius Tamayo MD Referring Physician [phone] [email or web address] Pre-Transplant Referred: 12/01/2024 Evaluation began: 12/22/2024 Committee: 01/28/2025 Center waitlisted: 03/02/2025 Appointments (04/05/2025 - 06/05/2025) When With Visit Type Description 04/22/2025 Transplant - Fawn Hancock Follow Up Canceled (Patient - Personal Reason) 05/11/2025 Transplant - Fawn Hancock llo Esteban
--- OUTSIDE RECORDS SUMMARY | 2025-05-05 09:55 | XMS_ITS | Encounter Summary ---
Author Organization [facility] Address [address] [place] [address] Care Team Providers Care Strap Cutter Name Role Phone Darius Tamayo MD Primary Care Provider [phone] Encounter Details Date Type Department Care Team ([facility] st Contact Info) Description 05/03/2025 Orders Only [facility] Liver Transplant Services [address] [place] [address] Lauren Hancock MD [address] [place] [address] Chronic hepatitis C with cirrhosis (Primary Dx); Hepatocellular carcinoma ; Awaiting liver transplant Social History Tobacco Use Types [...] on file documented as of this encounter Patient Instructions * Patient Instructions* Lauren Hancock MD - 05/03/2025 3:35 PM EST Endoscopy/Colonoscopy Appointment Information Date: Procedure Time: Arrival Time: [facility] FACILITIES LOCATION (check procedure location): [] [facility] [address] [place], [place] Report to Endoscopy, Ground Level [] [facility] [address] [place], [place] Report to Endoscopy on A Level, Yellow, Elevator C [] [facility] [address] [place], [place] If you have any questions, please call us at [phone] or email us at [email or web address] Sedation for Endoscopy Patient Information Sheet What is sedation? Why do I need it for my endoscopy procedure? Sedation is a state of sleepiness that occurs when you receive medication to help you rest during aprocedure. It is commonly given before an endoscopic procedure. Sedation is used to help relieve oravoid the sensation of discomfort when air is instilled into the stomach or intestines during the procedure. When anesthesia personnel are involved in your care, moderate to deep sedation is achievedwith a medication called Propofol. Advantages of Propofol: A.) Quick achievement of the desired level of sedation. B.) Short recovery time. C.) Mental alertness occurs much sooner since Propofol wears off quickly. If the anesthesia personnel determine that you should not receive Propofol medication for certain medical reasons, you will be provided moderate sedation with alternative medicines. This will be discussed by anesthesia personnel or the end user consultant with you just prior to the procedure. On a rare occasion if you are not able to tolerate the procedure with sedation only, you may need to have general anesthesia inthe hospital setting. Is sedation safe? Sedation is very safe for most people having an endoscopy. Complications associated with sedation are rare occurring in less than one in every 10,000 people. The most common complications involve a temporary decrease in the rate of breathing or heart rate, decrease in blood pressure and decrease inblood oxygen levels. These are easily corrected with medications and oxygen given through a nasal cannula or mask. When will I be able to drive or go to work? These types of medicine can last longer than the endoscopy, it is required that you have a friend or family member take you home. As a rule of thumb, since the sedation medicine can affect your reaction time and decision making ability: DO NOT DRIVE DO NOT MAKE IMPORTANT OR LEGAL DECISIONS DO NOT DRINK ALCOHOL (INCLUDES BEER OR WINE) DO NOT WORK Resume your normal activities the following day. Pre-Upper Endoscopy Patient Instructions 7 DAYS BEFORE YOUR PROCEDURE: You should stop taking non-steroidal anti-inflammatory medicines (e.g. Ibuprofen) and Aspirin unless these medicines have been prescribed by a doctor. If you take Plavix (Clopidigrel), Coumadin (Warfarin), or other blood thinning/antocoagulation medicines then you should discuss whether to stop them before your procedure with your doctor. 1 DAY BEFORE YOUR PROCEDURE: Medications: If you have diabetes we recommend you take only one-half the dose of long acting insulin (e.g., Lantus) the night before the procedure, no short acting insulin and no oral hypoglycemic medications. DAY OF PROCEDURE: What to eat: Starting at midnight, you must not eat any foods, suck candy, or chew gum until AFTER the test is over. What to drink: You may drink water, diet willie lia, Crystal Light (not red, blue, or purple), apple juice, club soda, black coffee, (NO SUGAR, NO MILK, NO CREAM). Stop drinking these liquids at least 2 hours before the procedure. Medications: do NOT take any medication for diabetes, diuretics (such as lasix/furosemide), or blood pressure medication the ends in -pril or -terrence. You may take your other medications with a small amount of liquid up to 2 hours before the procedure. documented in this encounter Plan of Treatment Upcoming Encounters Date Type Department Care Team (Late st Contact Info) Description 05/11/2025 4:00 PM EST Follow-Up [facility] Liver Transplant Services [address] [place] [address] Lauren Hancock MD [address] [place] [address] 07/15/2025 1:00 PM EST Office Visit [facility] 4th floor Cardiology Medicine [address] [place] [address] Silver Chaser: Tavia Campos MD [address] [place] [phone] Scheduled Procedures Name Priority Associated Diagnoses Date/Ti me UPPER ENDOSCOPY; DIAGNOSTIC WITH BRUSH/WASH (SP) WITH POSSIBLE MODERATE SEDATION Chronic hepatitis C with cirrhosis Hepatocellular carcinoma Awaiting liver transplant documented as of this encounter Goals Goal Patient Goal Type Associated Problems Recent Progress Patient-Stated? Author Autogenerat ed Goal Care Plan Autogenerated Problem No Lauren Michelle i, MD documented as of this encounter Visit Diagnoses Diagnosis Chronic hepatitis C with cirrhosis- Primary Chronic hepatitis C without mention of hepatic coma Hepatocellular carcinoma Malignant neoplasm of liver, primary Awaiting liver transplant documented in this encounter Additional Health Concerns Active Problems Noted Date Diagnosed Date Autogenerated Problem 05/03/2025 documented as of this encounter Care Teams Strap Cutter Relationship Specialty Start Date End Date Darius Tamayo MD [address] [place] [address] PCP - General Gastroenterology 12/22/24 documented as of this encounter
--- OUTSIDE RECORDS SUMMARY | 2025-05-05 09:55 | XMS_ITS | Encounter Summary ---
Author Organization [employer] Address [address] [place] [address] 7t [place] [address] Care Team Providers Care Chemical Blender Name Role Phone Mitchell Sudha WEI Primary Care Provider [phone] Everett Rojas MD Unavailable [phone] Lindy Irene MD Unavailable [phone] Reason for Visit * Reason Comments Med Refill Encounter Details Date Type Department Care Team (Late st Contact Info) Description 12/30/2023 Refill [facility] MEDICINE [address] [place] [address] Fabi Boudreaux MD [address] [place] [address] Lumbago of lumbar region with sciatica Social [...] sciatica documented in this encounter Care Teams Chemical Blender Relationship Specialty Start Date End Date Sudha Mitchell ANP [address] [place] [address] PCP - General Family Medicine 09/29/19 Everett Rojas MD [address] 3rd [place] [address] Cardiology 04/21/24 Lindy Irene MD [address] [place] [address] Orthopaedic Surgery 03/22/25 documented as of this encounter
--- OUTSIDE RECORDS SUMMARY | 2025-05-05 09:55 | XMS_ITS | Encounter Summary ---
Author Organization [employer] Address [address] [facility] [address] 7t [place] [address] Care Team Providers Care Summer Camp Counselor Name Role Phone Sudha Mitchell Primary Care Provider [phone] Everett Rojas MD Unavailable [phone] Lindy Irene MD Unavailable [phone] Reason for Visit * Reason Comments Med Refill Encounter Details Date Type Department Care Team (Late st Contact Info) Description 02/20/2024 Refill [facility] MED & PEDS [address] [place] [address] Sudha Mitchell ANP [address] [place] [address] Lumbago of lumbar region with sciatica Social [...] sciatica documented in this encounter Care Teams Summer Camp Counselor Relationship Specialty Start Date End Date Sudha Mitchell ANP [address] [place] [address] PCP - General Family Medicine 09/29/19 Everett Rojas MD [address] 3rd [place] [address] Cardiology 04/21/24 Lindy Irene MD [address] [place] [address] Orthopaedic Surgery 03/22/25 documented as of this encounter
--- OUTSIDE RECORDS SUMMARY | 2025-05-05 09:55 | XMS_ITS | Encounter Summary ---
Author Organization [employer] Address [address] [facility] 7t [place] [address] Care Team Providers Care Rfid Engineer Name Role Phone Sudha Mitchell Primary Care Provider [phone] Everett Rojas MD Unavailable [phone] Lindy Irene MD Unavailable [phone] Reason for Visit * Reason Comments Med Refill Encounter Details Date Type Department Care Team (Late st Contact Info) Description 10/18/2023 Refill [facility] MEDICINE [address] [place] [address] Sudha Mitchell ANP [address] [place] [address] Lumbago of lumbar region with sciatica Social [...] sciatica documented in this encounter Care Teams Rfid Engineer Relationship Specialty Start Date End Date Sudha Mitchell ANP [address] [place] [address] PCP - General Family Medicine 09/29/19 Everett Rojas MD [address] 3rd [place] [address] Cardiology 04/21/24 Lindy Irene MD [address] [place] [address] Orthopaedic Surgery 03/22/25 documented as of this encounter
--- OUTSIDE RECORDS SUMMARY | 2025-05-05 09:55 | XMS_ITS | Encounter Summary ---
Author Organization [employer] Address [address] [facility] 7t [place] [address] Care Team Providers Care Twister Doffer Name Role Phone Sudha Mitchell Primary Care Provider [phone] Everett Rojas MD Unavailable [phone] Lindy Irene MD Unavailable Reason for Visit * Reason Onset Date Comments Results 03/17/2025 Encounter Details Date Type Department Care Team ([facility] st Contact Info) Description 03/17/2025 Results Follow-Up [facility] [address] [place] [address] Sudha Mitchell ANP [address] [place] [address] Sed Rate by Modified Westergren, C-reactive Protein, [...] In Sent: 03/15/2025 2:03 PM EST To: ERIBEROT Woodard * Result Encounter Note - ERIBERTO [...] Time PHQ-9 Depression Total Score: 7 10/08/19 7:52 AM EDT documented as of this encounter Care Teams Twister Doffer Relationship Specialty Start Date End Date Sudha Mitchell ANP [address] [place] [address] PCP - General Family Medicine 09/29/19 Everett Rojas MD [address] 3rd [place] [address] Cardiology 04/21/24 Lindy Irene MD [address] [place] [address] Orthopaedic Surgery 03/22/25 documented as of this encounter
--- OUTSIDE RECORDS SUMMARY | 2025-05-05 09:55 | XMS_ITS | Encounter Summary ---
Author Organization [facility] Address [address] [place] [address] Care Team Providers Care World Language Teacher Name Role Phone Darius Tamayo MD Primary Care Provider [phone] Encounter Details Date Type Department Care Team (Late st Contact Info) Description 04/30/2025 Orders Only External Imaging [address] [place] [address] Radiology, External [address] [place] [address] Social History Tobacco Use Types Packs/Day Years [...] Info) Description 05/11/2025 4:00 PM EST Follow-Up [facility] Liver Transplant Services [address] [place] [address] Lauren Hancock MD [address] [place] [address] 07/15/2025 1:00 PM EST Office Visit [facility] Building 4th floor Cardiology Medicine [address] [place] [address] Shirt Maker: Tavia Campos MD [address] [place] [phone] Pending Results Name Type Priority Associated Diagnoses Date /Time MRI ABDOMEN COMPARISON IMAGES (OUTSIDE STUDY) Imaging [place]man Routine 05/04/2025 2:19 PM EST Scheduled Orders Name Type Priority Associated Diagnoses Orde r Schedule MRI ABDOMEN COMPARISON IMAGES (OUTSIDE STUDY) Imaging Feldman Routine 1 Occurrences starting 05/04/2025 until 06/04/2026 Scheduled Procedures Name Priority Associated Diagnoses Date/Ti me UPPER ENDOSCOPY; DIAGNOSTIC WITH BRUSH/WASH (SP) WITH POSSIBLE MODERATE SEDATION Chronic hepatitis C with cirrhosis Hepatocellular carcinoma Awaiting liver transplant documented as of this encounter Visit Diagnoses Not on filedocumented in this encounter Care Teams World Language Teacher Relationship Specialty Start Date End Date Darius Tamayo MD [address] [place] [address] PCP - General Gastroenterology 12/22/24 documented as of this encounter
--- OUTSIDE RECORDS SUMMARY | 2025-05-05 09:55 | XMS_ITS | Encounter Summary ---
Author Organization [facility] Address [address] [place] [address] Care Team Providers Care Manager Requirements Name Role Phone Darius Tamayo MD Primary Care Provider [phone] Encounter Details Date Type Department Care Team (Late st Contact Info) Description 03/02/2025 Results Follow-Up [facility] Liver Transplant Services [address] [place] [address] Sabrina Dahl RN Social History Tobacco Use [...] Info) Description 05/11/2025 4:00 PM EST Follow-Up [facility] Liver Transplant Services [address] [place] [address] Lauren Hancock MD [address] [place] [address] 07/15/2025 1:00 PM EST Office Visit [facility] 4th floor Cardiology Medicine [address] [place] [address] Purchasing Assistant: Tavia Campos MD [address] [place] [address] Scheduled Procedures Name Priority Associated Diagnoses Date/Ti me UPPER ENDOSCOPY; DIAGNOSTIC WITH BRUSH/WASH (SP) WITH POSSIBLE MODERATE SEDATION Chronic hepatitis C with cirrhosis Hepatocellular carcinoma Awaiting liver transplant documented as of this encounter Visit Diagnoses Not on filedocumented in this encounter Care Teams Manager Requirements Relationship Specialty Start Date End Date Darius Tamayo MD [address] [place] [address] PCP - General Gastroenterology 12/22/24 documented as of this encounter
--- OUTSIDE RECORDS SUMMARY | 2025-05-05 09:55 | XMS_ITS | Encounter Summary ---
Author Organization [facility] Address [address] [place] [address] Care Team Providers Care Sheet Metal Roofer Name Role Phone Darius Tamayo MD Primary Care Provider [phone] Encounter Details Date Type Department Care Team (Late st Contact Info) Description 03/02/2025 Results Follow-Up [facility] Liver Transplant Services [address] [place] [address] Sabrina Dahl RN Social History Tobacco Use [...] Description 05/11/2025 4:00 PM EST Follow-Up [facility] Liver Transplant Services [address] [place] [address] Lauren Hancock MD [address] [place] [address] 07/15/2025 1:00 PM EST Office Visit [facility] 4th floor Cardiology Medicine [address] [place] [address] Information Resources Director: Tavia Campos MD [address] [place] [address] Scheduled Procedures Name Priority Associated Diagnoses Date/Ti me UPPER ENDOSCOPY; DIAGNOSTIC WITH BRUSH/WASH (SP) WITH POSSIBLE MODERATE SEDATION Chronic hepatitis C with cirrhosis Hepatocellular carcinoma Awaiting liver transplant documented as of this encounter Visit Diagnoses Not on filedocumented in this encounter Care Teams Sheet Metal Roofer Relationship Specialty Start Date End Date Darius Tamayo MD [address] [place] [address] PCP - General Gastroenterology 12/22/24 documented as of this encounter
--- OUTSIDE RECORDS SUMMARY | 2025-05-05 09:55 | XMS_ITS | Encounter Summary ---
Author Organization [employer] Address [address] [place] [address] 7[address] [place] [address] Care Team Providers Care Barrel Handler Name Role Phone Sudha Mitchell Primary Care Provider [phone] Everett Rojas MD Unavailable [phone] Lindy Irene MD Unavailable [phone] Reason for Visit * Reason Comments Med Refill Encounter Details Date Type Department Care Team (Late st Contact Info) Description 01/22/2023 Refill [facility]INE [address] [place] [address] Sudha Mitchell ANP [address] [place], [place] [phone] Lumbago of lumbar region with sciatica Social [...] sciatica documented in this encounter Care Teams Barrel Handler Relationship Specialty Start Date End Date Sudha Mitchell ANP [address] [place] [address] PCP - General Family Medicine 09/29/19 Everett Rojas MD [address] 3rd [place] [address] Cardiology 04/21/24 Lindy Irene MD [address] [place] [address] Orthopaedic Surgery 03/22/25 documented as of this encounter
--- OUTSIDE RECORDS SUMMARY | 2025-05-05 09:55 | XMS_ITS | Encounter Summary ---
Author Organization [employer] Address [address] [facility] 7t [place] [address] Care Team Providers Care Digital Forensics Investigator Name Role Phone Sudha Mitchell Primary Care Provider [phone] Everett Rojas MD Unavailable [phone] Lindy Irene MD Unavailable [phone] Reason for Visit * Reason Onset Date Comments Pre-op Visit 12/20/2023 Encounter Details Date Type Department Care Team (Late st Contact Info) Description 12/20/2023 Telephone [facility] MEDICINE [address] [place] [address] Sudha Mitchell ANP [address] [place], [place] [phone] Pre-op Visit Social History Tobacco Use Types [...] [facility] Surgeon's office number: [phone] Ext [phone] Surgeon's office fax number: [phone] Contact name: Mara Last office note from surgeon requested: Yes documented in this encounter Plan of Treatment Not on file documented as of this encounter Visit Diagnoses Not on filedocumented in this encounter Care Teams Digital Forensics Investigator Relationship Specialty Start Date End Date Sudha Mitchell ANP [address] [place] [address] PCP - General Family Medicine 09/29/19 Everett Rojas MD [address] [place] [address] Cardiology 04/21/24 Lindy Irene MD [address] [place] [address] Orthopaedic Surgery 03/22/25 documented as of this encounter
--- OUTSIDE RECORDS SUMMARY | 2025-05-05 09:55 | XMS_ITS | Encounter Summary ---
Author Organization [employer] Address [address] [facility] [address] 7[address] [place] [address] Care Team Providers Care Arboriculture Instructor Name Role Phone Sudha Mitchell Primary Care Provider [phone] Everett Rojas MD Unavailable [phone] Lindy Irene MD Unavailable [phone] Reason for Visit * Reason Comments Med Refill Encounter Details Date Type Department Care Team (Late st Contact Info) Description 03/23/2024 Refill [facility] PEDS [address] [place] [address] Sudha Mitchell ANP [address] [place] [address] Lumbago of lumbar region with sciatica Social [...] sciatica documented in this encounter Care Teams Arboriculture Instructor Relationship Specialty Start Date End Date Sudha Mitchell ANP [address] [place] [address] PCP - General Family Medicine 09/29/19 Everett Rojas MD [address] 3rd [place] [address] Cardiology 04/21/24 Lindy Irene MD [address] [place] [address] Orthopaedic Surgery 03/22/25 documented as of this encounter
--- OUTSIDE RECORDS SUMMARY | 2025-05-05 09:55 | XMS_ITS | Clinical Summary ---
Author Organization [employer] Address [address] [facility] 7[address] [place] [address] Care Team Providers Care Detective Bureau Chief Name Role Phone Stephen Tom WEI Primary Care Provider [phone] Everett Rojas MD Unavailable [phone] Lindy Irene MD Unavailable [phone] Allergies Active Allergy Reactions Criticality Noted Date [...] MG/3ML) 0.083% nebulizer solution 03/15/20 22 Active betamethasone, augmented, (Diprolene) 0.05 % ointmentIndicati [...] mouth Once per day. 12/24/19 24 Active Calcium Carb-Cholecalcif nicolle 600-10 MG-MCG tablet TAKE 1 TABLET BY MOUTH TWICE DAILY IN THE MORNING AND AT BEDTIME 180 tablet 3 06/10/19 25 Active montelukast (Singulair) 10 MG tablet TAKE 1 TABLET BY MOUTH AT BEDTIME 90 tablet 3 08/05/19 25 Active metoprolol tartrate (Lopressor) 50 MG tablet 50 mg. 05/19/19 25 Active atorvastatin (Lipitor) 20 MG tablet Take 20 mg by mouth Once per day. 12/26/19 25 026 Active lidocaine (Lidoderm) 5 % patchIndications :Neck pain Apply 1 patch topically Once per day. 30 patch 3 01/19/20 25 Active Diclofenac Sodium 1 % gelIndications:N brandan pain Apply 2 G up to 4x/d as needed for joint pain 100 g 2 01/19/20 25 Active tiZANidine (Zanaflex) 2 MG tabletIndication s: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ciatica Take 1 tab as needed up to TID for muscle pain/spasm 30 tablet 01/21/20 25 Active Arnuity Ellipta 100 MCG/ACT inhalerIndicatio ns:Moderate persistent asthma without complication INHALE 1 PUFF BY MOUTH EVERY DAY AT THE SAME TIME RINSE MOUTH AFTER USING. DO NOT SWALLOW. 30 each 1 04/22/2025 4:04 PM EST 03/12/20 25 Active cholecalciferol (Vitamin D-3) 25 MCG tablet Take 1 tablet (25 mcg) by mouth in the morning. 60 tablet 2 03/26/2025 4:45 PM EST 03/15/20 25 Active traMADol (Ultram) 50 MG tabletIndication s:Lumbago of lumbar region with sciatica Take 1 tablet (50 mg) by mouth every 12 (twelve) hours if needed for severe pain. 56 tablet 03/26/2025 4:45 PM EST 03/22/20 25 Active Active Problems Problem Noted Date [...] in cirrhosis 04/16/2023 Overview (10/06/2024): EGDs via [facility] History of Helicobacter pylori infection 023 Overview (04/16/2023): tx'd 10/2021 via [facility] Cirrhosis of liver without ascites 04/16/2023 Overview (10/06/2024): compensated. thought to be d/t CARTWRIGHT vs. HCV. Follows w/ [facility] and had abd MRI to eval liver lesion 07/2022. 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 11/19/2022 Overview (11/19/2022): MRI 01/01/2022 findings copied into 09/18/22 note for reference Thrombocytopenia 03/20/2018 Trigger finger of both hands 03/20/2018 Neoplasm of liver 11/10/2017 Paroxysmal atrial fibrillation (CMS/HCC) 016 Atherosclerosis of [place] co ronary artery of [place] heart with stable angina pectoris 11/25/2015 Benign essential hypertension 11/25/2015 Chronic hepatitis C (CMS/HCC) 11/25/2015 Moderate persistent asthma 11/25/2015 Resolved Problems Problem Noted Date Diagnosed Date Resolved Date Mild depression 10/07/2024 10/07/2024 Encounters Date Type Department Care Team Description 04/19/2025 Orders Only GENERIC EXTERNAL DATA DEPARTMENT Provider, Generic External Data 04/15/2025 Telephone [facility] [address] [place] [address] Tom Trujillo ANP No Show 04/14/2025 Telephone [facility] [address] [place] [address] Tom Trujillo ANP chart prep 03/22/2025 2:00 PM EST Office Visit [facility] [address] [place] [place], [place] [phone] Tom Trujillo ANP Elevated blood uric acid level (Primary Dx); Lumbago of lumbar region with sciatica; Paroxysmal atrial fibrillation (CMS/HCC) (HCC) 03/22/2025 Telephone [facility] [address] [place] [address] Nita Mendoza RN Error (VOID this visit) 03/22/2025 Travel 03/19/[address] [address] Tom Trujillo ANP chart prep 03/18/[address] [address] Tom Trujillo ANP pre op 03/17/2025 Orders Only [address] [address] Tom Trujillo ANP Acute gout of hand, unspecified cause, unspecified laterality (Primary Dx) 03/17/2025 Results Follow-Up [address] [address] Tom Trujillo ANP Sed Rate by Modified Wester[place], C-reactive Protein, CBC auto differential, Uric acid 03/15/[address] [address] Tom Trujillo ANP 03/12/2025 Refill [facility] [address] [place] [address] Tom Trujillo ANP Moderate persistent asthma without complication 02/17/2025 Telephone [facility] [address] [place] [address] Nichole Lucio RN 02/16/2025 11:15 AM EDT Office Visit [address] [address] Tom Truijllo ANP Hepatocellular carcinoma (CMS/HCC) (HCC) (Primary Dx); Encounter for immunization; Elevated C-reactive protein (CRP); Pain in finger of right hand; Lumbago of lumbar region with sciatica 02/16/2025 Travel 02/15/[address] [address] Tom Trujillo ANP chart prep 02/09/2025 Telephone [facility] [address] [place] [address] Nichole Lucio RN 02/09/2025 Results Follow-Up [facility] [address] [place] [address] Anabela Carlson MD Uric acid 02/06/2025 Results Follow-Up [facility] [address] [place] [address] Anabela Carlson MD Comprehensive Metabolic Panel, CBC auto differential, Sed Rate by Modified [place], C-reactive Protein 02/06/2025 Orders Only [facility] [address] [place] [address] Anabela Carlson MD Pain in finger of right hand (Primary Dx) 02/05/2025 1:00 PM EDT Office Visit [facility] [address] [place] [address] Anabela Carlson MD Pain in finger of right hand (Primary Dx) 02/05/2025 Travel from Last 3 Months Immunizations Immunization [...] 03/22/2025 1:58 PM EST Plan of Treatment Health Maintenance Due Date Last Done Comments [...] Vaccine (3 - season) 2025 08/16/2020, 07/19/2020 SDOH Screening 06/18/2025 [...] Procedure Name Priority Date/Time Associated Diagnosis Comments GROSS AND MICROSCOPIC LEVEL 3 Routine 04/19/2025 10:20 AM EST PROTHROMBIN TIME-INR Routine 04/19/2025 8:15 AM EST CBC Routine 04/19/2025 8:15 AM EST URIC ACID Routine 03/15/2025 1:34 PM EST [...] EDT Pain in finger of right hand LIPID PANEL, STANDARD Routine 01/04/2025 1:20 PM EDT BI MAMMOGRAM SCREENING TOMOSYNTHESIS BILATERAL Routine 10/26/2024 1:20 PM EDT HM COLONOSCOPY Routine 10/10/2021 from Last 3 Months or Most Recently Relevant to Health Maintenance Results * Gross and Microscopic Level 3 (04/19/2025 10:20 AM EST) 04/19/2025 10:2 0 AM EST 04/19/2025 12:09 PM EST [facility] - 04/21/2025 10:31 AM EST ----- ------- Name: Klaudia TorresWalt Age/Sex: 69/F : 1955 [id number] Unit#: [id number] Attend Dr: Lindy Irene MD Re04/19/25 Status: [facility] Location: [facility] Disch: ----- ------- SPEC : [id number] RECD: 04/19/25120 STATUS: RENY TOWNSEND NUM: [id number] SHEILA: 04/19/25-[address]: Lindy Irene MD ENTERED: 04/19/25-1224 SP TYPE: Surgical OTHR DR: TOM TRUJILLO NP ORDERED: Gross Micro L3 Addendum Addendum 1 Entered: 04/21/25-1024 Additional tissue examined. The case was reviewed intradepartmentally. - Synovitis with hemosiderin deposition, no cyst seen. Addendum Signed (signature on file) Connie Curiel MD 04/21/25 1031 ----- ------- Diagnosis Right hand, tendon, excision: Fibroconnective tissue with fibrosis, fibrocartilaginous metaplasia, and focal myxoid degeneration; negative for malignancy. Clinical History Contracture, right hand, trigger finger Microscopic Description Microscopic sections reviewed. Material Received FDS tendon and mass Gross Description Received in formalin labeled FDS tendon and mass is a cylindrical portion of firm, rubbery singh white tissue measuring 5.6 cm in length with a diameter of 0.4-0.8 cm. Engagement Mgr cross-sections are submitted for microscopic examination, 4 pieces in cassette A1 Received in the same container, on Telfa, are fragments of rubbery white and pink-white tissue forming an aggregate measuring 0.9 x 0.7 x 0.2 cm which is wrapped in lens paper and entirely submitted for microscopic examination, multiple pieces in cassette A2. ([facility]) CONTINUED ON NEXT PAGE ----- ------- Name: Walt Rajan Age/Sex: 69/F : 1955 Unit#: [id number] Attend Dr: Lindy Irene MD Re04/19/25 Status: [facility] Location: [facility] Disch: ----- ------- SPEC : [id number] RECD: 04/19/25 STATUS: RENY TOWNSEND NUM: [id number] SHEILA: 04/19/[address]: Lindy Irene MD ENTERED: 04/19/25 SP TYPE: Surgical OTHR DR: TOM TRUJILLO NP ORDERED: Gross Micro L3 IHC S/NG Disclaimer NOTE: Unless otherwise stated, all tissue is formalin-fixed and paraffin-embedded. Some or all of the immunohistochemical tests reported herein may have been developed and their performance characteristics determined by [facility]. They have not been cleared or approved by the U.S. Food and Drug Administration (FDA). However, the FDA has determined that such clearance or approval is not necessary. This laboratory is certified under the Clinical Laboratory Improvement Amendments of 1988 (CLIA) as qualified to perform high complexity clinical laboratory testing. Copies To: Lindy Irene MD [facility] [address] [place] [address] Dr [address] [place] [address] TOM TRUJILLO NP [address] [address] ----- ------- Signed (signature on file) Connie Curiel MD 04/20/25 1537 ----- ------- END OF REPORT Generic External Data Provider LAB CYTOLOGY ORDE RABLES Final Result Performing Organization Address [facility] de Phone Number [facility] [address] [place] [phone] * (ABNORMAL) Prothrombin Time-INR (04/19/2025 8:15 AM EST) Prothrombin Time 14.3(H) 11.2 - 13.5 SEC [facility] INTERNATIONAL NORM RATIO 1.2(H) 0.9 - 1.1 [facility] Comment:INTERNATIONAL [...] mechanical prosthetic heart valves: 2.5 - 3.5 04/19/2025 8:15 AM EST 04/19/2025 8:36 AM EST Generic External Data Provider LAB BLOOD ORDERAB LES Final Result Performing Organization Address [facility] de Phone Number [facility] [address] [place] [phone] * (ABNORMAL) CBC (04/19/2025 8:15 AM EST) White Blood Count 3.4(L) 4.8 - 10.8 X10*3/uL [facility] Red Blood Count 4.16(L) 4.20 - 5.50 X10*6/uL [facility] Hemoglobin 12.3 12.0 - 16.0 g/dl [facility] Hematocrit 37.6 37.0 - 47.0 % [facility] Mean Corpuscular Volume 90.4 80.0 - 98.0 fL [facility] Mean Corpuscular Hemoglobin 29.6 27.0 - 33.0 pg [facility] Mean Corpuscular HGB Conc 32.7 31.0 - 35.0 g/dl [facility] Red Cell Distribution Width 15.1 11.0 - 16.0 % [facility] Platelet Count 116(L) 160 - 400 X10*3/uL [facility] Mean Platelet Volume 10.3 9.4 - 12.3 fL [facility] NRBC Pct Auto 0.0 0.0 - 0.2 /100WBC [facility] NRBC Abs Auto 0.000 0.0 - 0.012 X10*3/uL [facility] 04/19/2025 8:15 AM EST 04/19/2025 8:36 AM EST us Generic External Data Provider LAB BLOOD ORDERAB LES Final Result [facility] [address] [place] [phone] * (ABNORMAL) CBC auto differential (03/15/2025 1:34 PM EST) Only the most recent of2 resultswithin the time period is included. White Blood Count 3.7(L) 4.8 - 10.8 X10*3/uL [facility] Red Blood Count 4.09(L) 4.20 - 5.50 X10*6/uL [facility] Hemoglobin 12.1 12.0 - 16.0 g/dl [facility] Hematocrit 37.1 37.0 - 47.0 % [facility] Mean Corpuscular Volume 90.7 80.0 - 98.0 fL [facility] Mean Corpuscular Hemoglobin 29.6 27.0 - 33.0 pg [facility] Mean Corpuscular HGB Conc 32.6 31.0 - 35.0 g/dl [facility] Red Cell Distribution Width 15.7 11.0 - 16.0 % [facility] Platelet Count 125(L) 160 - 400 X10*3/uL [facility] Mean Platelet Volume 9.7 9.4 - 12.3 fL [facility] Neutrophils Percent Auto 71.5 45 - 73 % [facility] Imm Gran Pct Auto 0.3 0.0 - 0.4 % [facility] Lymphocytes Percent Auto 18.7(L) 20 - 40 % [facility] Monocytes Percent Auto 8.4 2 - 11 % [facility] Eosinophils Percent Auto 0.8 0 - 4 % [facility] Basophils Percent Auto 0.3 0 - 2 % [facility] NRBC Pct Auto 0.0 0.0 - 0.2 /100WBC [facility] Neutrophils Absolute Auto 2.6 2.0 - 8.3 x10*3/uL [facility] Imm Gran Abs Auto 0.01 0.00 - 0.03 X10*3/uL [facility] Lymphocytes Absolute Auto 0.7(L) 1.2 - 4.9 X10*3/uL [facility] Monocytes Absolute Auto 0.3 0.1 - 1.2 X10*3/uL [facility] Eosinophils Absolute Auto 0.0 0.0 - 0.4 X10*3/uL [facility] Basophils Absolute Auto 0.0 0.0 - 0.2 X10*3/uL [facility] NRBC Abs Auto 0.000 0.0 - 0.012 X10*3/uL [facility] Blood Venous blood specimen / Unknown 03/15/2025 1:34 PM EST 03/15/2025 1:34 PM EST Tom Trujillo [facility] LAB BLOOD ORDERABLES Final Resul t [facility] [address] [place] [phone] * Cyclic Citrullinated Peptide (CCP) Antibody (IgG) (03/15/2025 1:34 PM EST) Cyclic Citrullinated Peptide <16 UNITS [facility] Comment:Reference RangeNegat christina: <20Weak Positive: 20-39Moderate Positive: 40-59Strong Positive: >59THIS TEST WAS PERFORMED AT:[facility] [address] [phone] GRIFFIN MD Blood Venous blood specimen / Unknown 03/15/2025 1:34 PM EST 03/15/2025 1:34 PM EST Tom Trujillo [facility] LAB BLOOD ORDERABLES Final Resul t Performing Organization Address [facility] de Phone Number [facility] [address] [place] [phone] * (ABNORMAL) Sed Rate by Modified Nathanielren (03/15/2025 1:34 PM EST) Only the most recent of2 resultswithin the time period is included. Pathologist [facility] Erythrocyte Sedimentation Rate 60(H) 0 - 20 MM/HR [facility] Comment:Patients with polycy themia and many hemoglobin abnormalitiesmay have depressed sed rates whereas patients with anemiamay have elevated sed rates. Blood Venous blood specimen / Unknown 03/15/2025 1:34 PM EST 03/15/2025 1:34 PM EST Tom Trujillo [facility] LAB BLOOD ORDERABLES Final Resul t Performing Organization Address [facility] Co de Phone Number [facility] [address] [place] [phone] * (ABNORMAL) C-reactive Protein (03/15/2025 1:34 PM EST) Only the most recent of2 resultswithin the time period is included. Pathologist [facility] C Reactive Protein 1.64(H) < or = 0.50 mg/dL [facility] Blood Venous blood specimen / Unknown 03/15/2025 1:34 PM EST 03/15/2025 1:34 PM EST [facility] LAB BLOOD ORDERABLES Final Resul t Performing Organization Address [facility]/ZIP Co de Phone Number [facility] [address] [place] [phone] * (ABNORMAL) Uric acid (03/15/2025 1:34 PM EST) Only the most recent of2 resultswithin the time period is included. Uric Acid 6.8(H) 2.4 - 5.7 mg/dL [facility] Blood Venous blood specimen / Unknown 03/15/2025 1:34 PM EST 03/15/2025 1:34 PM EST Tom [facility] LAB BLOOD ORDERABLES Final Resul t Performing Organization Address [facility] Co de Phone Number [facility] [address] [place] [address] [phone] * (ABNORMAL) Comprehensive Metabolic Panel (02/05/2025 2:16 PM EDT) Pathologist [facility] Sodium 139 135 - 145 mmol/L [facility] Potassium 3.6 3.3 - 5.1 mmol/L [facility] Chloride 99 96 - 108 mmol/L [facility] Carbon Dioxide 33(H) 22 - 29 mmol/L [facility] Anion Gap 11(L) 12 - 20 [facility] Urea Nitrogen (BUN) 15 9 - 16 mg/dL [facility] Creatinine, Serum 0.74 0.5 - 1.4 mg/dL [facility] Estimated Glomerular Filt Rate >60 [facility] Comment:Chronic Kidney Disea se: Estimated GFR < 60 mL/min/1.54j1Ivycad Kidney Disease: Estimated GFR < 15 mL/min/1.73m2 Glucose 87 60 - 115 mg/dL [facility] Calcium 10.0 8.4 - 10.2 mg/dL [facility] Bilirubin, Total 0.9 0.0 - 1.0 mg/dL [facility] Aspartate Amino Transferase 43(H) 5 - 31 U/L [facility] Alanine Aminotransferase 54(H) 0 - 31 U/L [facility] Total Protein 7.6 6.5 - 8.0 g/dL [facility] Albumin Level 3.6 3.5 - 5.0 g/dL [facility] Alkaline Phosphatase 65 39 - 117 U/L [facility] Blood Venous blood specimen / Unknown 02/05/2025 2:16 PM EDT 02/05/2025 3:57 PM EDT Anabela Carlson MD LAB BLOOD ORDERABLES Final Re sult Performing Organization Address City/State/[facility] Co de Phone Number [facility] [address] [place] [phone] * XR Hand 3+ Views Right (02/05/2025 1:51 PM EDT) Anatomical Region Laterality Modality Upper Extremities, Hand Right Radiogra phic Imaging 02/05/2025 1:51 PM EDT Narrative 02/05/2025 2:05 PM EDT [address] [address] XRay Report Signed Patient: Walt Rajan MR #: [id number] : 1955 Acct:[id number] Age/Sex: 69 / F ADM Date: 02/05/25 Loc: HO.HHCX Attending Dr: Anabela Carlson MD Ordering Physician: Anabela Carlson MD Date of Service: 02/05/25 Procedure(s): XR hand RT min 3V Accession Number(s): [id number] cc: Anabela Carlson MD Reason for Exam: [...] 02/05/25 1402 DD/ 1351 TD/TT: 02/05/25 1358 Supervisor Machine Workers: Procedure Note Donotuseinterpreter, Image - 02/05/[address] [address] XRay Report Signed Patient: Sid RajanR #: [id number] : 1955cct:[id number] Age/Sex: 69 / FADM Date: 02/05/25 Loc: HO.HHCX Attending Dr: Anabela Carlson MD Ordering Physician: Anabela Carlson MD Date of Service: 02/05/25 Procedure(s): XR hand RT min 3V Accession Number(s): [id number] cc: Anabela Carlson MD Reason for Exam: [...] 02/05/25 1402 DD/ 1351 TD/TT: 02/05/25 1358 Supervisor Machine Workers: us Anabela Carlson MD IMG XR PROCEDURES Final Resul t * (ABNORMAL) Lipid Panel, Standard (01/04/2025 1:20 PM EDT) Triglycerides 104 <150 mg/dL [facility] Comment:Desirable Triglyceri de: less than 150 mg/dLBorderline High Triglyceride 150-199 mg/dLHigh Triglyceride: 200-499 mg/dLVery High Triglyceride: greater than or equal to 5OO mg/dL Cholesterol 122 <200 mg/dL [facility] Comment:Desirable Cholestero l: less than 200 mg/dLBorderline High Cholesterol: 200-239 mg/dLHigh Cholesterol: greater than 239 mg/dL LDL Cholesterol Calculated 70 <100 mg/dL [facility] Comment:Desirable LDL: less than 100 mg/dLNear Optimal/Above Optimal LDL: 110- 129 mg/dLBorderline High LDL: 130-159 mg/dLHigh LDL: 160-189 mg/dLVery High LDL: greater than or equal to 190 mg/dL HDL Cholesterol 32(L) >40 mg/dL [facility] Comment:Desirable HDL: great er than 40 mg/dL Note: This HDL assay may give artificially low results in patients with liver disease. 01/04/2025 1:20 PM EDT 01/04/2025 4:05 PM EDT us Generic External Data Provider LAB BLOOD ORDERAB LES Final Result [facility] [address] [place] [phone] * BI Mammogram Screening Tomosynthesis Bilateral (10/26/2024 1:20 PM EDT) Anatomical Region Laterality Modality Breast Bilateral Mammography 10/26/2024 1:20 PM EDT Narrative 11/01/2024 2:28 PM EDT [address] [place] [address] Mammography Report Signed Patient: Walt Rajan MR #: [id number] : 1955 Acct:[id number] Age/Sex: 69 / F ADM Date: 10/26/24 Loc: HO.MAMMO Attending Dr: Tom Trujillo NP Ordering Physician: TOM TRUJILLO NP Results: 1Negative Date of Service: 10/26/24 Follow Up: 1 Year From Orig inal Mammogram Procedure(s): MM tomosynthesis screening BI Accession Number(s): [id number] cc: TOM TRUJILLO NP EXAMINATION: MM SCREENING [...] 11/01/24 1425 DD/ 1320 TD/TT: 10/26/24 1338 Supervisor Machine Workers: Procedure Note Donotuseinterpreter, Image - 11/01/[address] [place] [address] Mammography Report Signed Patient: Kenyon Rajan #: [id number] : 4Acct:[id number] Age/Sex: 69 / FADM Date: 10/26/24 Loc: HO.MAMMO Attending Dr: Tom Trujillo NP Ordering Physician: TOM TRUJILLO NPResults: 1Negative Date of Service: 10/26/24Follow Up: 1 Year From Orig inal Mammogram Procedure(s): MM tomosynthesis screening BI Accession Number(s): [id number] cc: TOM TRUJILLO NP EXAMINATION: MM SCREENING [...] 11/01/24 1425 DD/ 1320 TD/TT: 10/26/24 1338 Supervisor Machine Workers: Tom Trujillo ANP IMG BI PROCEDURES Edited Result - Final * Hm Colonoscopy (10/10/2021) Colonoscopy Normal Normal Historical Provider MD HEALTH MAINTENANCE Final Result from Last 3 Months or Most Recently Relevant to Health Maintenance Insurance [facility] STANDARD MEDICARE Care Teams Detective Bureau Chief Relationship Specialty Start Date End Date Tom Trujillo ANP [address] [place] [address] PCP - General Family Medicine 09/29/19 Everett Rojas MD [address] [place] [address] 3rd Floor [place], [place] Cardiology 04/21/24 Lindy Irene MD [address] [facility] [address] [place] [address] Orthopaedic Surgery 03/22/25
--- OUTSIDE RECORDS SUMMARY | 2025-05-05 09:55 | XMS_ITS | Encounter Summary ---
Author Organization [employer] Address [address] [facility] [address]t [place] [address] Care Team Providers Care Mortgage Processing Manager Name Role Phone Sudha Mitchell Primary Care Provider [phone] Everett Rojas MD Unavailable [phone] Lindy Irene MD Unavailable [phone] Encounter Details Date Type Department Care Team ([facility] st Contact Info) Description 03/17/2025 Orders Only [facility] [address] [place] [address] Sudha Mitchell ANP [address] [place] [address] Acute gout of hand, unspecified cause, unspecified [...] documented as of this encounter Care Teams Mortgage Processing Manager Relationship Specialty Start Date End Date Sudha Mitchell ANP [address] [place] [address] PCP - General Family Medicine 09/29/19 Everett Rojas MD [address]rd [place] [address] Cardiology 04/21/24 Lindy Irene MD [address] [place] [address] Orthopaedic Surgery 03/22/25 documented as of this encounter
--- OUTSIDE RECORDS SUMMARY | 2025-05-05 09:55 | XMS_ITS | Encounter Summary ---
Author Organization [facility] Address [address] [place] [address] Care Team Providers Care Broodmare Barn Groom Name Role Phone Darius Tamayo MD Primary Care Provider [phone] Encounter Details Date Type Department Care Team (Late st Contact Info) Description 12/22/2024 Education [facility] Transplant Department [address] [place] [address] [phone] Sabrina Dahl RN Social History Tobacco Use [...] Info) Description 05/11/2025 4:00 PM EST Follow-Up [facility] Liver Transplant Services [address] [place] [address] [phone] Lauren Hancock MD [address] [place] [address] 07/15/2025 1:00 PM EST Office Visit [facility] Building 4th floor Cardiology Medicine [address] [place] [phone] Ground Nuclear Weapons Assembly Officer: Tavia Campos MD [address] [place] [address]31 Scheduled Procedures Name Priority Associated Diagnoses Date/Ti me UPPER ENDOSCOPY; DIAGNOSTIC WITH BRUSH/WASH (SP) WITH POSSIBLE MODERATE SEDATION Chronic hepatitis C with cirrhosis Hepatocellular carcinoma Awaiting liver transplant documented as of this encounter Visit Diagnoses Not on filedocumented in this encounter Care Teams Broodmare Barn Groom Relationship Specialty Start Date End Date Darius Tamayo MD [address] [place] [id number] PCP - General Gastroenterology 12/22/24 documented as of this encounter
--- OUTSIDE RECORDS SUMMARY | 2025-05-05 09:55 | XMS_ITS | Clinical Summary ---
Author Organization [facility] Address [address] [place] [address] Care Team Providers Care Parts Inspector Name Role Phone Darius Tamayo MD Primary Care Provider [phone] Allergies Active Allergy Reactions Criticality Noted Date [...] mouth once a day. 30 tablet 11 0812/26/19 26 Active Active Problems Problem Noted Date Diagnosed Date Awaiting liver transplant 03/02/2025 Hepatocellular carcinoma 09/16/2024 Overview (02/12/2025): As seen on MRI 09/04/[address] aTmayo. Pt referred to IR for tx options 09/14/24 by GI. MR/MR abdomen wo/w con IMPRESSION: 1. Hepatic cirrhosis. Masses are identified in segments VIII and I within the liver as described above, compatible with hepatocellular carcinoma Cirrhosis of liver without ascites 04/16/2023 Overview (02/12/2025): compensated. thought to be d/t CARTWRIGHT vs. HCV. [place] [facility] and had abd MRI to eval liver lesion 07/2022. 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 Overview (02/12/2025): [place] [facility] Paroxysmal atrial fibrillation 02/07/2016 Benign essential hypertension 11/25/2015 Chronic hepatitis C 11/25/2015 Encounters Date Type Department Care Team Description 05/03/2025 Orders Only [facility] Liver Transplant Services [address] [place] [address] [phone] Lauren Hancock MD Chronic hepatitis C with cirrhosis (Primary Dx); Hepatocellular carcinoma ; Awaiting liver transplant 04/30/2025 Orders Only External Imaging [address] [place] [address] [phone] Radiology, External 03/18/2025 Results Follow-Up [facility] Transplant Services [address] [place] [address] [phone] Sabrina Dahl, RN 03/18/2025 Orders Only [facility] Transplant Department [address] [place] [address] 43261 Sabrina Dahl, RN Encounter for pre-transplant evaluation for liver transplant (Primary Dx); Chronic hepatitis C with cirrhosis ; Hepatocellular carcinoma 03/08/2025 Orders Only [facility] Transplant Department [address] [place] [address] 73023 Provider, Cem, 03/02/2025 Orders Only [facility] Transplant Department [address] [place] [address] 71362 Rebecca Workman NP Hepatocellular carcinoma (Primary Dx); Awaiting liver transplant 03/02/2025 Results Follow-Up [facility] Transplant Services [address] [place] [address] Sabrina Dahl, MONAE 03/02/2025 Results Follow-Up [facility] Transplant Services [address] [place] [address] 68693 Sabrina Dahl RN 03/02/2025 Documentation [facility] Transplant Department [address] [place] [address] 52508 Nanette Bowen RN ABO Dual Validation 03/02/2025 Documentation [facility] Transplant Department [address] [place] [address] 13858 Sabrina Dahl RN ABO Dual Validation 03/02/2025 External Result Entry [facility] Transplant Department [address] [place] [address] 63748 Sabrina Dahl RN 03/02/2025 Orders Only [facility] Transplant Department [address] [place] [address] 36925 Provider, MD Cem 03/02/2025 Abstract [facility] Transplant Department [address] [place] [address] 67953 Lauren Hancock MD 03/01/2025 Telephone [facility] Transplant Department [address] [place] [address] 11075 Sabrina Dahl RN 02/26/2025 Orders Only [facility] Transplant Department [address] [place] [address] 23707 Sabrina Dahl, RN Encounter for pre-transplant evaluation for liver transplant (Primary Dx) 02/15/2025 Telephone [facility] Transplant Department [address] [place] [address] Sabrina Dahl RN from Last 3 Months Social History Tobacco [...] Info) Description 05/11/2025 4:00 PM EST Follow-Up [facility] Transplant Services [address] [place] [address] Lauren Hancock MD [address] [place] [address] 07/15/2025 1:00 PM EST Office Visit [facility] Building 4th floor Cardiology Medicine [address] [place] [address] Nursing Staffing Coordinator: QingTavia Zacarias MD [address] [place] [phone] Scheduled Procedures Name Priority Associated Diagnoses Date/Ti me UPPER ENDOSCOPY; DIAGNOSTIC WITH BRUSH/WASH (SP) WITH POSSIBLE MODERATE SEDATION Chronic hepatitis C with cirrhosis Hepatocellular carcinoma Awaiting liver transplant Health Maintenance Due Date Last Done Comments [...] Completed 02/16/2025, , 06/15/2019, Additional history exists Goals Goal Patient Goal Type Associated Problems Recent Progress Patient-Stated? Author Autogenerat ed Goal Care Plan Autogenerated Problem No Lauren Michelle i, MD Procedures * Due to [place] state law, this organization might not be sharing negative HIV tests. Procedure Name Priority Date/Time Associated Diagnosis Comments MRI ABDOMEN W WO CONTRAST Routine 04/30/2025 3:25 PM EST Hepatocellular carcinoma Awaiting liver transplant TYPE AND SCREEN - TRANSPLANT MANUAL ABSTRACTION Routine 03/01/2025 1:58 PM EDT LAB - SCANNED Routine 03/01/2025 11:14 AM EDT LIVER PRE EXTERNAL PANEL Routine 03/01/2025 10:35 AM EDT IMAGING - SCANNED Routine 03/01/2025 10: 01 AM EDT TYPE AND SCREEN - TRANSPLANT MANUAL ABSTRACTION Routine 03/01/2025 COMPREHENSIVE METABOLIC PANEL Routine 12/22/2024 2:14 PM EDT Encounter for pre-transplant evaluation for liver transplant from Last 3 Months or Most Recently Relevant to Health Maintenance Results * Due to [place] [employer] law, this organization might not be sharing negative HIV tests. * MRI Abdomen W WO Contrast (04/30/2025 3:25 PM EST) Anatomical Region Laterality Modality Body, Abdomen Magnetic Resonan ce 04/30/2025 2:35 PM EST Narrative 05/03/2025 2:55 PM EST [facility] Accession Number: [id number] Patient Name: Walt Rajan Date of : 1955 Date of Exam: 04-30-2025 Referring Physician: Rebecca Workman [facility] Transplant Services [address] [place] [address] Exam: MR Abdomen (C-/C+) CPT 87187 Room Description: [facility] Espr 1.5 MRI Abdomen W+W/O Contrast CLINICAL INDICATION: Liver disease, chronic, tumor screening history of hepatocellular carcinoma s/p TACE, assess treatment response. Status post TACE to lesions and segment 8 and 1 in the liver. Posttreatment MRI 2024 showing no imaging evidence of recurrent disease. TECHNIQUE: Multiplanar, multisequence pre and post contrast MRI evaluation of the abdomen was performed. 7 cc of Elucirem was administered intravenously. COMPARISON: MRI abdomen from 12/28/2024 FINDINGS: LOWER THORAX: No pleural or pericardial effusion. LIVER: Cirrhosis. Treated observation and segment 8 with hypoenhancing ablation cavity measuring 2 x 1.3 cm, decreased from 2.5 x 2.1 cm on 12/28/2024. LR-TR nonviable. Medial and inferior to the ablation cavity is a curvilinear focus of hypoenhancement, similar to 12/28/2024. Treated observation in segment 1 with hypoenhancing ablation cavity measuring 1. 6 x 1.5 cm (11:35), decreased from 2.4 x 1.9 cm. LR-TR nonviable. Heterogeneous perfusional change in segments 7 and 6 of the right liver lobe with preferential arterial enhancement (9:30). Minimally decreased geographic T1 signal in segment 6 of the liver is nonspecific but similar to prior (5:65). There is diffuse heterogeneous enhancement of the liver due to underlying cirrhosis and portal hypertension. Tiny cysts. GALLBLADDER: Cholelithiasis without acute cholecystitis. BILE DUCTS: No biliary ductal dilatation. SPLEEN: Mild splenomegaly measuring 13.8 cm. 1 cm focus of susceptibility artifact in the inferior spleen (4:13, 13:43). PANCREAS: Normal. No pancreatic ductal dilatation. ADRENAL GLANDS: No nodules. KIDNEYS: No hydronephrosis. Kidneys enhance symmetrically. No suspicious mass. Small cyst in left kidney. STOMACH/UPPER GI TRACT: Stomach and visualized abdominal bowel normal in caliber. PERITONEUM AND RETROPERITONEUM: No loculated fluid collection or peritoneal mass. LYMPH NODES: No lymphadenopathy. VESSELS: Abdominal aorta is nonaneurysmal with mild atherosclerotic irregularity. 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 ABDOMINAL WALL: Unremarkable. BONES: Mild degenerative changes in the spine. IMPRESSION: Cirrhosis with decreased size of treated segment 8 and 1 liver lesions without suspicious residual enhancement. LR-TR nonviable. No new suspicious liver lesion. 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 Findings were communicated to Dr. Hancock by phone at 14:55 on 05/03/2025. WSN: [id number] Ordering Physician: Rebecca Workman Electronically Signed By: Adria Peters MD Procedure Note Provider, Gaston - 05/03/2025 [facility] Accession Number: [id number] Patient Name: Walt Rajan Date of : 1955 Date of Exam: 04-30-2025 Referring Physician: Rebecca Workman [facility] Transplant Services [address] [place] [address] Exam: MR Abdomen (C-/C+) CPT 09421 Room Description: [facility] Esp 1.5 MRI Abdomen W+W/O Contrast CLINICAL INDICATION: Liver disease, chronic, tumor screening history of hepatocellular carcinoma s/p TACE, assess treatment response. Status postTACE to lesions and segment 8 and 1 in the liver. Posttreatment MRI 2024showing no imaging evidence of recurrent disease. TECHNIQUE: Multiplanar, multisequence pre and post contrast MRI evaluationof the abdomen was performed. 7 cc of Elucirem was administeredintravenously. COMPARISON: MRI abdomen from 12/28/2024 FINDINGS: LOWER THORAX: No pleural or pericardial effusion. LIVER: Cirrhosis. Treated observation and segment 8 with hypoenhancing ablation cavitymeasuring 2 x 1.3 cm, decreased from 2.5 x 2.1 cm on 12/28/2024. LR-TR nonviable. Medial and inferior to the ablation cavity is a curvilinear focus of hypoenhancement, similar to 12/28/2024. Treated observation in segment 1 with hypoenhancing ablation cavitymeasuring 1. 6 x 1.5 cm (11:35), decreased from 2.4 x 1.9 cm. LR-TR nonviable. Heterogeneous perfusional change in segments 7 and 6 of the right liverlobe with preferential arterial enhancement (9:30). Minimally decreasedgeographic T1 signal in segment 6 of the liver is nonspecific but similar to prior(5:65). There is diffuse heterogeneous enhancement of the liver due to underlying cirrhosis and portal hypertension. Tiny cysts. GALLBLADDER: Cholelithiasis without acute cholecystitis. BILE DUCTS: No biliary ductal dilatation. SPLEEN: Mild splenomegaly measuring 13.8 cm. 1 cm focus of susceptibility artifact in the inferior spleen (4:13, 13:43). PANCREAS: Normal. No pancreatic ductal dilatation. ADRENAL GLANDS: No nodules. KIDNEYS: No hydronephrosis. Kidneys enhance symmetrically. No suspiciousmass. Small cyst in left kidney. STOMACH/UPPER GI TRACT: Stomach and visualized abdominal bowel normal in caliber. PERITONEUM AND RETROPERITONEUM: No loculated fluid collection orperitoneal mass. LYMPH NODES: No lymphadenopathy. VESSELS: Abdominal aorta is nonaneurysmal with mild atherosclerotic irregularity. New nonocclusive, nonenhancing thrombus in the main portal vein andanterior and posterior branches of the right portal vein (13:32, 35). ABDOMINAL WALL: Unremarkable. BONES: Mild degenerative changes in the spine. IMPRESSION: Cirrhosis with decreased size of treated segment 8 and 1 liver lesionswithout suspicious residual enhancement. LR-TR nonviable. No new suspicious liverlesion. New nonocclusive, nonenhancing thrombus in the main portal vein and theanterior and posterior branches of the right portal vein. Findings were communicated to Dr. Hancock by phone at 14:55 on05/03/2025. WSN: [id number] Ordering Physician: Rebecca Workman Electronically Signed By: Adria Peters MD Rebecca Workman [facility] MRI PROCEDURES Final Res ult * TYPE AND SCREEN - TRANSPLANT MANUAL ABSTRACTION (03/01/2025 1:58 PM EDT) Only the most recent of2 resultswithin the time period is included. us Unknown Provider LAB HISTORICAL RESULTS Final Result * LAB - SCANNED (03/01/2025 11:14 AM EDT) us Unknown Provider LAB HISTORICAL RESULTS Final Result * LIVER PRE EXTERNAL PANEL (03/01/2025 10:35 AM EDT) Sodium 144 mmol/L [facility] Potassium 3.4 [facility] Chloride 103 [facility] Carbon Dioxide 31 [facility] Glucose 86 [facility] BUN 22 mg/dL [facility] Creatinine 0.77 mg/dL [facility] Calcium 9.5 mg/dL [facility] Total Protein 6.9 g/dL [facility] Albumin 3.8 g/dL [facility] Bilirubin, Total 1.1 mg/dL [facility] Alkaline Phosphatase 40 U/L [facility] AST 37 U/L [facility] ALT 55 U/L [facility] WBC 4.1 10*3/uL [facility] Hgb 12.6 [facility] Hematocrit 40.0 % [facility] Platelets 105 10*3/uL [facility] INR 1.50 [facility] 03/01/2025 10:3 5 AM EDT Lauren Hancock MD LAB BLOOD ORDERABLES Fin al Result Performing Organization Address City/State/[facility] Co de Phone Number [facility] [address] [place] [phone] * IMAGING - SCANNED (03/01/2025 10:01 AM EDT) Anatomical Region Laterality Modality Other us Unknown Provider SCANNED PROCEDURES Final Res ult * (ABNORMAL) Comprehensive Metabolic Panel (12/22/2024 2:14 PM EDT) NA 141 135 - 145 mmol/L 12/22/2024 3:36 PM EDT [facility] K 3.9 3.5 - 5.3 mmol/L 12/22/2024 3:36 PM EDT [facility] Cl 101 98 - 107 mmol/L 12/22/2024 3:36 PM EDT [facility] CO2 27 22 - 32 mmol/L 12/22/2024 3:36 PM EDT [facility] Anion Gap 13 5 - 15 12/22/2024 3:36 PM EDT [facility] Glucose 85 65 - 99 mg/dL 12/22/2024 3:36 PM EDT [facility] Creatinine 0.77 0.50 - 1.20 mg/dL 12/22/2024 3:36 PM EDT [facility] Calcium 10.5 8.6 - 10.5 mg/dL 12/22/2024 3:36 PM EDT [facility] Total Protein 8.3(H) 6.0 - 8.0 g/dL 12/22/2024 3:36 PM EDT [facility] Albumin 3.9 3.5 - 5.2 g/dL 12/22/2024 3:36 PM EDT [facility] Bilirubin, Total 0.6 0.2 - 1.2 mg/dL 12/22/2024 3:36 PM EDT [facility] Alkaline Phosphatase 71 35 - 129 U/L 12/22/2024 3:36 PM EDT [facility] AST 35 10 - 40 U/L 12/22/2024 3:36 PM EDT [facility] ALT 30 10 - 40 U/L 12/22/2024 3:36 PM EDT [facility] BUN 12 7 - 23 mg/dL 12/22/2024 3:36 PM EDT [facility] eGFR 83 >=60 mL/min/1. 73m2 12/22/2024 3:36 PM EDT [facility] Comment:The estimated glomer ular [...] - 4.2 g/dL 12/22/2024 3:36 PM EDT [facility] A/G Ratio 0.9(L) 1.5 - 3.0 12/22/2024 3:36 PM EDT [facility] Blood Structure of peripheral vein / Unknown Venipuncture / Unknown 12/22/2024 2:14 PM EDT 12/22/2024 2:51 PM EDT us Lauren Hancock MD LAB BLOOD ORDERABLES Fin al Result [facility] [address] [place] [address], from Last 3 Months or Most Recently Relevant to Health Maintenance Additional Health Concerns Active Problems Noted Date Diagnosed Date Autogenerated Problem 05/03/2025 Insurance [facility] MEDICARE [address] [place] [phone] [facility] MEDICARE Advance Directives Documents on File Type Date Recorded 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
== END 2025-05-05 10:21 | disposition home or self-care (01) ==
LOC: HO.HOS 09:49
PROVIDERS: PCP Nurse Practitioner Primary Care
DX: M65.331 Trigger finger, right middle finger (principal); M24.541 Contracture, right hand
CPT/HCPCS: 99024

== ENCOUNTER → 2025-05-05 09:49 | Outpatient (BNVA) | payer MEDICARE, MEDICAID, SELFPAY | PROVIDERS: PCP Nurse Practitioner Primary Care | DX: M65.331 Trigger finger, right middle finger (principal); M24.541 Contracture, right hand; Z98.890 Other specified postprocedural states; Z48.02 Encounter for removal of sutures | CPT/HCPCS: 99212 ==

== ENCOUNTER 2025-05-07 09:35 | Emergency (ER) | payer MEDICARE, MEDICAID, SELFPAY ==
[2025-05-07 09:42] VITALS: BP 129/73; PULSE 72; RESP 16; TEMP 36.6; O2SAT 97; BMI 31.5
--- NOTE | 2025-05-07 09:53 | ED_ITS ---
HPI - General Adult General Chief complaint: Skin/Abscess/Foreign Body Stated complaint: rash x3 days Time Seen by Provider: 05/07/25 09:53 Source: patient Mode of arrival: ambulatory Limitations: no limitations History of Present Illness ED Provider: Molly Mata PA-C HPI narrative: Patient is a 69 year old female with a history of PAF on Eliquis, liver cirrhosis, hepatocellcular carcinoma s/p chemo embolization at [facility] presenting to the emergency department today with itching. Patient states that she had an MRI a couple of days ago with contrast and ever since then - she has felt itchy all over . Patient states that she is having an intermittent rash as well. Patient denies any other allergen or environmental exposures. Patient denies any other complaints at this time. Related Data Home Medications ?Medication ?Instructions ?Recorded ?Confirmed montelukast 10 mg tablet 10 mg PO BEDTIME 01/31/21 albuterol sulfate 90 mcg/actuation 2 puff PO Q4-6H PRN sob 05/15/21 04/13/25 aerosol inhaler (ProAir HFA) calcium 600 mg (as 1 tab PO DAILY 01/22/2207/07 carbonate)-vitamin D3 10 mcg (400 unit) tablet lidocaine 5 % topical patch 1 - 2 patch topical DAILY PRN pain 01/22/22 04/13/25 (Lidoderm) tramadol 50 mg tablet 50 - 100 mg PO Q12H PRN Pain 01/22/22 04/13/25 (Scale Score 7-10) mometasone 100 mcg/actuation HFA 1 puff inhalation BID 04/19/25 04/19/25 aerosol inhaler (Asmanex HFA) vitamin A 3,000 mcg (10,000 unit) 05/03/25 05/03/25 capsule Previous Rx's ?Medication ?Instructions ?Recorded cholecalciferol (vitamin D3) 25 25 mcg PO QAM #90 tabs 06/10/24 mcg (1,000 unit) tablet hydrochlorothiazide 25 mg tablet 25 mg PO QAM #90 tabs 07/10/24 metoprolol tartrate 50 mg tablet 50 mg PO BID #180 tab s 11/18/24 oxycodone-acetaminophen 5 mg-325 1 tab PO Q6H PRN Pain #15 tabs 12/08/25 mg tablet digoxin 125 mcg (0.125 mg) tablet 125 mcg PO DAILY #90 tabs 04/26/25 prednisone 20 mg tablet 40 mg (2 x 20 mg) PO DAILY C OPD 05/07/25 exacerbation 5 days #10 tabs Allergies Allergy/AdvReac Type Severity Reaction Status Date / Time rivaroxaban (From XARELTO) Allergy Intermediate GI BLEEDING Verified 05/07/25 09:44 SEAFOOD Allergy Intermediate RASH Uncoded 05/07/25 09:44 Review of Systems 2 Constitutional: Constitutional: Reports as per HPI Eyes: Eyes: Reports as per HPI ENT: Reports as per HPI Cardiovascular: Cardiovascular: Reports as per HPI Respiratory: Respiratory: Reports as per HPI Gastrointestinal: Gastrointestinal: Reports as per HPI Genitourinary: Genitourinary: Reports as per HPI Musculoskeletal: Musculoskeletal: Reports as per HPI Integumentary/Breasts: Skin/Breast: Reports as per HPI Neurologic: Reports as per HPI Psychiatric: Psychiatric: Reports as per HPI Endocrine: Endocrine: Reports as per HPI Hematologic/Lymphatic: Hematologic/Lymphatic: Reports as per HPI Allergic/Immunologic: Allergic/Immunologic: Reports as per HPI PMF Past Medical History Attestation statement: The following information was validated with the patient. Source: old records reviewed and nursing notes reviewed Medical History Hepatitis C History of chemotherapy History of liver cancer Arthritis Hx of transfusion of packed red blood cells HTN (hypertension) Hemorrhage of gastrointestinal tract, unspecified PAF (paroxysmal atrial fibrillation) Tubular adenoma of colon Low vitamin D level Atrial fibrillation Cirrhosis of liver Asthma Surgical History History of cardiac ablation for atrial fibrillation (~04/2024) Hx of cataract surgery History of eyelid surgery History of esophagogastroduodenoscopy (EGD) Hx of colonoscopy History of total abdominal hysterectomy and bilateral salpingo-oophorectomy History of 3 sections Family History Family History Father No problems noted. Mother No problems noted. Paternal Aunt Breast cancer Mother Heart problem Social History Social History Household Members: Children Are you a primary laboratory animal caretaker to a significant other at home: No Do you presently have visiting nurse or other home services: No Alcohol intake: never Comment: medicated Patient Tobacco Use Status: Former Tobacco user Tobacco use type: Cigarette Years Smoked: 5 +/- Smoked in Last 30 Days: No Use of substances other than those prescribed or required for medical reasons: No Advance Directives: No Advance Directives Information Provided: Yes service: No Current occupational status: unemployed 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 Physical Exam ED Vital Signs: Vital Signs - 24 hr 05/07/25 09:42 05/07/25 11:07 05/07/25 11:59 Temperature 97.8 F 0 F L Pulse Rate 72 63 63 Respiratory Rate 16 16 16 Blood Pressure 129/73 106/59 L 106/59 L Pulse Oximetry 97 97 97 Oxygen Delivery Method Room Air Room Air Room Air BMI result Body Mass Index 31.5 Const General: cooperative, no acute distress, alert and awake Nutritional Appearance: well nourished Orientation/consciousness: patient oriented x3 HENMT Head: Yes normal to inspection and Yes atraumatic Ears: hearing grossly normal bilaterally and external ears normal General nose exam: Normal external nose present, no nasal discharge noted and no epistaxis Face and sinus: Yes normal facial exam, No abrasion and No laceration Mouth: Normal oral and palatal mucosa present, no drooling and no muffled voice Eyes General: appearance normal, both eyes and all related structures Periorbital: periorbital findings normal Eyelids: Yes eyelids normal Conjunctivae: conjunctivae normal Pupils: Equal, round and reactive pupils present EOM: EOMs intact bilaterally Neck Neck: Yes normal visual inspection and Yes full ROM Resp Effort & Inspection: normal respiratory effort and able to speak in complete sentences Neuro General: patient oriented x3, moves all extremities and CN's II-XI intact bilaterally Cranial nerves: Yes Equal, round and reactive pupils present Cognition (Neuro): normal cognition Extrem General: Yes normal to inspection, Yes full ROM and Yes capillary refill normal Psych Appearance: grossly normal Mental Status: mental status grossly normal Affect: normal affect Attitude: cooperative Thought process: Normal thought process present Thought content: Normal thought content present Insight: Good insight present (Psych) Medications Administered Discontinued Medications Generic Name Dose Route Start Last Admin Trade Name Freq PRN Reason Stop Dose Admin Methylprednisolone Sodium Succinate 60 mg 05/07/25 10:49 05/07/25 11:05 Methylprednisolone Sod Succ 125 Mg/2 Ml Vial IVPUSH 12/26/25 10:50 60 mg ONCE ONE Administration Medical Decision Making Medical Decision Making [facility] Narrative: Patient is a 69 year old female with a history of PAF on Eliquis, liver cirrhosis, hepatocellcular carcinoma s/p chemo embolization at [facility] presenting to the emergency department today with itching. Patient's physical exam was as noted in the physical exam portion of this note. I did not appreciate any rash on the patient's skin. Patient's blood work was unremarkable. I explained my physical exam findings as well as all test results to the patient. I answered all questions asked by the patient. Patient received a dose of IV solu-medrol which she stated helped her itching some. It is unclear if the patient's itchiness is secondary to an allergic reaction to the MRI dye vs. an unknown environmental exposure. I stressed the importance of the patient taking her medication as directed (either prescribed or as the over the counter packaging recommends). I stressed the importance of the patient following up with her primary care provider. I stressed the importance of the patient returning to the emergency department immediately if her symptoms were to worsen or if she were to develop any dizziness, shortness of breath, difficulty breathing, chest pain, blurry vision, loss of vision, nausea, vomiting, abdominal pain, fever, chills, back pain, or any other complaints. Patient verbalized agreement and understanding with this treatment plan and discharge. Differential Diagnosis Differential Diagnoses: The differential diagnosis associated with the presentation includes Allergic reaction Itchiness Admission/Observation Consideration of admission/observation: Escalation of care including admission/observation considered Patient would have been admitted to the hospital had her work up had any findings where hospital admission was appropriate and her clinical presentation warranted hospital admission. Lab Data [facility] Lab Attestation statement: I reviewed the patient's lab results. My interpretation of these results are in the MDM Rationale portion of this note. 05/07/25 11:04 05/07/25 11:04 Labs: Lab Results 05/07/25 Range/Units 11:04 WBC 5.0 (4.8-10.8) X10*3/uL RBC 4.28 (4.20-5.50) X10*6/uL Hgb 12.3 (12.0-16.0) g/dl Hct 38.5 (37.0-47.0) % MCV 90.0 (80.0-98.0) fL MCH 28.7 (27.0-33.0) pg MCHC 31.9 (31.0-35.0) g/dl RDW 14.7 (11.0-16.0) % Plt Count 141 L (160-400) X10*3/uL MPV 9.9 (9.4-12.3) fL Immature Gran % (Auto) 0.6 H (0.0-0.4) % Neut % (Auto) 77.6 H (45-73) % Lymph % (Auto) 15.4 L (20-40) % [place] % (Auto) 6.0 (2-11) % Eos % (Auto) 0.4 (0-4) % Baso % (Auto) 0.0 (0-2) % Lymph # (Auto) 0.8 L (1.2-4.9) X10*3/uL [place] # (Auto) 0.3 (0.1-1.2) X10*3/uL Eos # (Auto) 0.0 (0.0-0.4) X10*3/uL Baso # (Auto) 0.0 (0.0-0.2) X10*3/uL Abs Immat Gran (auto) 0.03 (0.00-0.03) X10*3/uL Absolute Neuts (auto) 3.9 (2.0-8.3) x10*3/uL Absolute Nucleated RBC 0.000 (0.0-0.012) X10*3/uL Nucleated RBC % (auto) 0.0 (0.0-0.2) /100WBC Sodium 142 (135-145) mmol/L Potassium 3.4 (3.3-5.1) mmol/L Chloride 105 (96-108) mmol/L Carbon Dioxide 27 (22-29) mmol/L Anion Gap 13 (12-20) BUN 20 H (9-16) mg/dL Creatinine 0.90 (0.5-1.4) mg/dL Estim Creat Clear Calc 49.0 Estimated GFR > 60 Random Glucose 97 (60-115) mg/dL Calcium 9.7 (8.4-10.2) mg/dL Total Bilirubin 1.0 (0.0-1.0) mg/dL Direct Bilirubin 0.4 (0.0-0.5) mg/dL AST 32 H (5-31) U/L ALT 26 (0-31) U/L Alkaline Phosphatase 51 (39-117) U/L Total Protein 7.3 (6.5-8.0) g/dL Albumin 3.8 (3.5-5.0) g/dL Discharge Plan Discharge Clinical Impression: Itch Patient Disposition: Home, Self-Care Instructions: Itchy Skin (ED) Additional Instructions: Your lab work today was reassuring there is no EMERGENT cause for your symptoms. It is impossible to say if this itchiness is secondary to the MRI injection / dye vs. a different environmental irritant. Take your prednisone as prescribed - this will help with your itching. Be aware can be activating and make sleeping difficult as well as increasing your hunger and you may be irritable. IF you are prescribed home medications and/or you are taking over the counter medications at home - it is very important you continue to do so as prescribed / directed unless told otherwise by a healthcare provider. Follow up with your primary care provider. Do your best to stay well hydrated and rest. Return to the emergency department immediately if your symptoms worsen or if you develop any numbness, tingling, dizziness, shortness of breath, difficulty breathing, chest pain, blurry vision, loss of vision, nausea, vomiting, abdominal pain, fever, chills, back pain, or any other complaints. L If you do not have a primary care provider - call any of the below numbers to establish and follow up with a primary care provider. [facility] Primary Care ([place]) [phone] [place] [address], [address] [facility] Primary Care ([address] [place]) [phone] [place] [address], [address] [facility], [address] [facility] Primary Care ([address] [place]) [phone] [place] [address], [address] [facility], [address] [facility] Primary Care ([place]) [phone] [place] [address], [address] [facility], [address] [facility] Family Medicine [phone] [address] [facility] [place], [address] Please see the information below about our Patient Portal. If you are not yet enrolled in the & [facility] Patient Portal, you will receive an enrollment email invitation following your visit to any [facility] setting. You may also self-enroll in the Patient Portal by visiting our website: [email or web address] The following information is required to access the Patient Portal: - Your [facility] Medical Record Number - Your personal home email address (must match what is in your electronic medical record, Registration staff can assist with this) - Name - Date of Capabilities of the Patient Portal: - Message some providers - View upcoming appointments - Access your health summary, medical history, and visit history - View current conditions and allergies - View procedure and lab results - View your medications, including guidelines, side effects, and precautions - Complete pre-appointment questionnaires requested by your provider - Ready summary reports of your office visits and procedures To access the Patient Portal Mobile [employer], follow these directions: - Search [employer] in the [employer] Store or [employer] Store - Download the [employer] - Search for - Enter your login/password Prescriptions: New prednisone 20 mg tablet 40 mg PO DAILY 5 Days Qty: 10 0RF No Action cholecalciferol (vitamin D3) 25 mcg (1,000 unit) tablet 25 mcg PO QAM Qty: 90 2RF hydrochlorothiazide 25 mg tablet 25 mg PO QAM Qty: 90 3RF metoprolol tartrate 50 mg tablet 50 mg PO BID Qty: 180 3RF digoxin 125 mcg (0.125 mg) tablet 125 mcg PO DAILY Qty: 90 3RF Asmanex HFA 100 mcg/actuation HFA aerosol inhaler 1 puff INHALATION BID oxycodone-acetaminophen 5-325 mg Tablet 1 tab PO Q6H PRN (Reason: Pain) Qty: 15 0RF Rx Instructions: Partial Fill upon patient request. vitamin A 3,000 mcg (10,000 unit) Capsule montelukast 10 mg tablet 10 mg PO BEDTIME albuterol sulfate [ProAir HFA] 90 mcg/actuation HFA aerosol inhaler 2 puff PO Q4-6H PRN (Reason: sob) lidocaine [Lidoderm] 5 % adhesive patch,medicated 1 - 2 patch topical DAILY PRN (Reason: pain) calcium carbonate-vitamin D3 600 mg-10 mcg (400 unit) tablet 1 tab PO DAILY tramadol 50 mg tablet 50 - 100 mg PO Q12H PRN (Reason: Pain (Scale Score 7-10)) Referrals: Sudha Mitchell, BELL TIER [Primary Care Provider, Internal Medicine] Interventions: ED Discharge Assessment Last Done: 05/07/25 11:59 Discharge Date/Time: 05/07/25 12:01 Print Language: Maltese
--- OUTSIDE RECORDS SUMMARY | 2025-05-07 09:59 | XMS_ITS | Encounter Summary ---
Author Organization [facility] Address [address] [place] [address] Care Team Providers Care Network Applications Specialist Name Role Phone Darius Tamayo MD Primary Care Provider [phone] Encounter Details Date Type Department Care Team (Late st Contact Info) Description 12/22/2024 Education [facility] Transplant Department [address] [place] [id number] Sabrina Dahl RN Social History Tobacco Use [...] Info) Description 05/11/2025 4:00 PM EST Follow-Up [facility] Liver Transplant Services [address] [place] [phone] Lauren Hancock MD [address] [place] [phone] 07/15/2025 1:00 PM EST Office Visit [facility] Building 4th floor Cardiology Medicine [address] [place] [address] Yard Attendant: Tavia Campos MD [address] [place] [phone] Scheduled Procedures Name Priority Associated Diagnoses Date/Ti me UPPER ENDOSCOPY; DIAGNOSTIC WITH BRUSH/WASH (SP) WITH POSSIBLE MODERATE SEDATION Chronic hepatitis C with cirrhosis Hepatocellular carcinoma Awaiting liver transplant documented as of this encounter Visit Diagnoses Not on filedocumented in this encounter Care Teams Network Applications Specialist Relationship Specialty Start Date End Date Darius Tamayo MD [address] [place] [phone] PCP - General Gastroenterology 12/22/24 documented as of this encounter
--- OUTSIDE RECORDS SUMMARY | 2025-05-07 09:59 | XMS_ITS | Encounter Summary ---
Author Organization [facility] Address [address] [place] [address] Care Team Providers Care Silk Screen Processor Name Role Phone Draius Tamayo MD Primary Care Provider [phone] Encounter Details Date Type Department Care Team (Late st Contact Info) Description 03/02/2025 Results Follow-Up [facility] Liver Transplant Services [address] [place] [id number] Sabrina Dahl RN Social History Tobacco Use [...] Info) Description 05/11/2025 4:00 PM EST Follow-Up [facility] Liver Transplant Services [address] [place] [address] Lauren Hancock MD [address] [place] [address] 07/15/2025 1:00 PM EST Office Visit [facility] 4th floor Cardiology Medicine [address] [place] [phone] Bell Tier: Tavia Campos MD [address] [place] [address] Scheduled Procedures Name Priority Associated Diagnoses Date/Ti me UPPER ENDOSCOPY; DIAGNOSTIC WITH BRUSH/WASH (SP) WITH POSSIBLE MODERATE SEDATION Chronic hepatitis C with cirrhosis Hepatocellular carcinoma Awaiting liver transplant documented as of this encounter Visit Diagnoses Not on filedocumented in this encounter Care Teams Silk Screen Processor Relationship Specialty Start Date End Date Darius Tamayo MD [address] [place] [phone] PCP - General Gastroenterology 12/22/24 documented as of this encounter
--- OUTSIDE RECORDS SUMMARY | 2025-05-07 09:59 | XMS_ITS | Clinical Summary ---
Author Organization [facility] Address [address] [place] [address] Care Team Providers Care Collection Agent Name Role Phone Darius Tamayo MD Primary Care Provider [phone] Allergies Active Allergy Reactions Criticality Noted Date [...] be d/t CARTWRIGHT vs. HCV. Follows w/ [facility] and had abd MRI to eval liver lesion 07/2022. 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 Overview (02/12/2025): EGDs via [facility] Paroxysmal atrial fibrillation 02/07/2016 Benign essential hypertension 11/25/2015 Chronic hepatitis C 11/25/2015 Encounters Date Type Department Care Team Description 05/03/2025 Orders Only [facility] Liver Transplant Services [address] [place] [address] 30133 Lauren Hancock MD Chronic hepatitis C with cirrhosis (Primary Dx); Hepatocellular carcinoma ; Awaiting liver transplant 04/30/2025 Orders Only External Imaging [address] [place] [address] 53303 Radiology, External 03/18/2025 Results Follow-Up [facility] Transplant Services [address] [place] [address] 54699 Sabrina Dahl, RN 03/18/2025 Orders Only [facility] Transplant Department [address] [place] [address] 18062 Sabrina Dahl, RN Encounter for pre-transplant evaluation for liver transplant (Primary Dx); Chronic hepatitis C with cirrhosis ; Hepatocellular carcinoma 03/08/2025 Orders Only [facility] Transplant Department [address] [place] [address] 89805 Provider, Cem, 03/02/2025 Orders Only [facility] Transplant Department [address] [place] [address] 75596 Rebecca Workman NP Hepatocellular carcinoma (Primary Dx); Awaiting liver transplant 03/02/2025 Results Follow-Up [facility] Transplant Services [address] [place] [address] Sabrina Dahl, MONAE 03/02/2025 Results Follow-Up [facility] Transplant Services [address] [place] [address] 52133 Sabrina Dahl RN 03/02/2025 Documentation [facility] Transplant Department [address] [place] [address] 62764 Nanette Bowen RN ABO Dual Validation 03/02/2025 Documentation [facility] Transplant Department [address] [place] [address] 53001 Sabrina Dahl RN ABO Dual Validation 03/02/2025 External Result Entry [facility] Transplant Department [address] [place] [address] 39174 Sabrina Dahl RN 03/02/2025 Orders Only [facility] Transplant Department [address] [place] [address] 25545 Provider, MD Cem 03/02/2025 Abstract [facility] Transplant Department [address] [place] [address] 80802 Lauren Hancock MD 03/01/2025 Telephone [facility] Transplant Department [address] [place] [address] 12776 Sabrina Dahl RN 02/26/2025 Orders Only [facility] Transplant Department [address] [place] [address] 29471 Sabrina Dahl, RN Encounter for pre-transplant evaluation for liver transplant (Primary Dx) 02/15/2025 Telephone [facility] Transplant Department [address] [place] [address] Sabrina Dahl RN from Last 3 Months [...] Info) Description 05/11/2025 4:00 PM EST Follow-Up [facility] Transplant Services [address] [place] [address] Lauren Hancock MD [address] [place] [address] 07/15/2025 1:00 PM EST Office Visit [facility] Building 4th floor Cardiology Medicine [address] [place] [address] Heel Burnisher: QingTavia Zacarias MD [address] [place] [address] Scheduled Procedures Name Priority Associated Diagnoses Date/Ti [...] Michelle i, MD Procedures * Due to [place] state law, this organization might not be [...] to Health Maintenance Results * Due to [place] [employer] law, this organization might not be sharing negative HIV tests. * MRI Abdomen W WO Contrast (04/30/2025 3:25 PM EST) Anatomical Region Laterality Modality Body, Abdomen Magnetic Resonan ce 04/30/2025 2:35 PM EST Narrative 05/03/2025 2:55 PM EST [facility] Accession Number: [id number] Patient Name: Walt Rajan Date of : 1955 Date of Exam: 04-30-2025 Referring Physician: Rebecca Workman [facility] Transplant Services [address] [place] [address] Exam: MR Abdomen (C-/C+) CPT 04552 Room Description: [facility] Espr 1.5 MRI Abdomen W+W/O Contrast CLINICAL [...] by phone at 14:55 on 05/03/2025. WSN: [id number] Ordering Physician: Rebecca Workman Electronically Signed By: Adria Peters MD Procedure Note Provider, Gaston - 05/03/2025 [facility] Accession Number: [id number] Patient Name: Walt Rajan Date of : 1955 Date of Exam: 04-30-2025 Referring Physician: Rebecca Workman [facility] Transplant Services [address] [place] [address] Exam: MR Abdomen (C-/C+) CPT 53673 Room Description: [facility] Esp 1.5 MRI Abdomen W+W/O Contrast CLINICAL [...] Hancock by phone at 14:55 on05/03/2025. WSN: [id number] Ordering Physician: Rebecca Workman Electronically Signed By: Adria Peters MD Rebecca Workman TECHNOLOGY SPECIALIST IMG MRI PROCEDURES Final Res ult * [...] (03/01/2025 10:35 AM EDT) Sodium 144 mmol/L [facility] Potassium 3.4 [facility] Chloride 103 [facility] Carbon Dioxide 31 [facility] Glucose 86 [facility] BUN 22 mg/dL [facility] Creatinine 0.77 mg/dL [facility] Calcium 9.5 mg/dL [facility] Total Protein 6.9 g/dL [facility] Albumin 3.8 g/dL [facility] Bilirubin, Total 1.1 mg/dL [facility] Alkaline Phosphatase 40 U/L [facility] AST 37 U/L [facility] ALT 55 U/L [facility] WBC 4.1 10*3/uL [facility] Hgb 12.6 [facility] Hematocrit 40.0 % [facility] Platelets 105 10*3/uL [facility] INR 1.50 [facility] 03/01/2025 10:3 5 AM EDT Lauren Hancock MD LAB BLOOD ORDERABLES Fin al Result Performing Organization Address City/State/[facility] Co de Phone Number [facility] [address] [place] [address] * IMAGING - SCANNED (03/01/2025 10:01 AM EDT) Anatomical Region Laterality Modality Other us Unknown Provider SCANNED PROCEDURES Final Res ult * (ABNORMAL) Comprehensive Metabolic Panel (12/22/2024 2:14 PM EDT) NA 141 135 - 145 mmol/L 12/22/2024 3:36 PM EDT [facility] K 3.9 3.5 - 5.3 mmol/L 12/22/2024 3:36 PM EDT [facility] Cl 101 98 - 107 mmol/L 12/22/2024 3:36 PM EDT [facility] CO2 27 22 - 32 mmol/L 12/22/2024 3:36 PM EDT [facility] Anion Gap 13 5 - 15 12/22/2024 3:36 PM EDT [facility] Glucose 85 65 - 99 mg/dL 12/22/2024 3:36 PM EDT [facility] Creatinine 0.77 0.50 - 1.20 mg/dL 12/22/2024 3:36 PM EDT [facility] Calcium 10.5 8.6 - 10.5 mg/dL 12/22/2024 3:36 PM EDT [facility] Total Protein 8.3(H) 6.0 - 8.0 g/dL 12/22/2024 3:36 PM EDT [facility] Albumin 3.9 3.5 - 5.2 g/dL 12/22/2024 3:36 PM EDT [facility] Bilirubin, Total 0.6 0.2 - 1.2 mg/dL 12/22/2024 3:36 PM EDT [facility] Alkaline Phosphatase 71 35 - 129 U/L 12/22/2024 3:36 PM EDT [facility] AST 35 10 - 40 U/L 12/22/2024 3:36 PM EDT [facility] ALT 30 10 - 40 U/L 12/22/2024 3:36 PM EDT [facility] BUN 12 7 - 23 mg/dL 12/22/2024 3:36 PM EDT [facility] eGFR 83 >=60 mL/min/1. 73m2 12/22/2024 3:36 PM EDT [facility] Comment:The estimated glomer ular [...] - 4.2 g/dL 12/22/2024 3:36 PM EDT [facility] A/G Ratio 0.9(L) 1.5 - 3.0 12/22/2024 3:36 PM EDT [facility] Blood Structure of peripheral vein / Unknown Venipuncture / Unknown 12/22/2024 2:14 PM EDT 12/22/2024 2:51 PM EDT us Lauren Hancock MD LAB BLOOD ORDERABLES Fin al Result [facility] [address] [place] [address], from Last 3 Months or Most Recently Relevant to Health Maintenance Additional Health Concerns Active Problems Noted Date Diagnosed Date Autogenerated Problem 05/03/2025 Insurance [facility] MEDICARE [address] [place] [phone] [facility] MEDIC[facility] Advance Directives Documents on File Type Date Recorded Patient Chairman And Ceo Expl [facility] Health Care Proxy 01/19/2025 2:50 PM 2024 Care Teams Collection Agent Relationship Specialty Start Date End Date Darius Tamayo MD [address] [place] [address] PCP - General Gastroenterology 12/22/24
--- OUTSIDE RECORDS SUMMARY | 2025-05-07 09:59 | XMS_ITS | Encounter Summary ---
Author Organization [facility] Address [address] [place] [address] Care Team Providers Care Drilling Assistant Name Role Phone Darius Tamayo MD Primary Care Provider [phone] Encounter Details Date Type Department Care Team (Late st Contact Info) Description 03/02/2025 Results Follow-Up [facility] Liver Transplant Services [address] [place] [address]013 Sabrina Dahl RN Social History Tobacco Use [...] Follow-Up [facility] Transplant Services [address] [place] [address] Lauren Hancock MD [address] [place] [address] 15[address] 07/15/2025 1:00 PM EST Office Visit [facility] 4th floor Cardiology Medicine [address] [place] [address] Cripple Worker: Tavia Campos MD [address] [place] [address] Scheduled Procedures Name Priority Associated Diagnoses Date/Ti me UPPER ENDOSCOPY; DIAGNOSTIC WITH BRUSH/WASH (SP) WITH POSSIBLE MODERATE SEDATION Chronic hepatitis C with cirrhosis Hepatocellular carcinoma Awaiting liver transplant documented as of this encounter Visit Diagnoses Not on filedocumented in this encounter Care Teams Drilling Assistant Relationship Specialty Start Date End Date Darius Tamayo MD [address] [place] [address] 51706 PCP - General Gastroenterology 12/22/24 documented as of this encounter
--- OUTSIDE RECORDS SUMMARY | 2025-05-07 09:59 | XMS_ITS | Encounter Summary ---
Author Organization [facility] Address [address] [place] [address] Care Team Providers Care Dice Table Person Name Role Phone Darius Tamayo MD Primary Care Provider [phone] Encounter Details Date Type Department Care Team ([facility] st Contact Info) Description 05/03/2025 Orders Only [facility] Liver Transplant Services [address] [place] [address] Lauren Hancock MD [address] [place] [address] Chronic hepatitis C with cirrhosis [...] Appointment Information Date: Procedure Time: Arrival Time: [facility] LOCATION (check procedure location): [] [facility] [address] [place], [place] Report to Endoscopy, Ground Level [] [facility] [address] [place], [place] Report to Endoscopy on A Level, Yellow, Elevator C [] [facility] [address] [place], [place] If you have any questions, please call us at [phone] or email us at [email or web address] Sedation for Endoscopy Patient Information Sheet What [...] be discussed by anesthesia personnel or the knitter machine with you just prior to the procedure. [...] Info) Description 05/11/2025 4:00 PM EST Follow-Up [facility] Liver Transplant Services [address] [place] [address] Lauren Hancock MD [address] [place] [address] 07/15/2025 1:00 PM EST Office Visit [facility] Building 4th floor Cardiology Medicine [address] [place] [address] [employer] Finisher: Tavia Campos MD [address] [place] [address] [phone] Scheduled Procedures Name Priority Associated Diagnoses Date/Ti [...] documented as of this encounter Care Teams Dice Table Person Relationship Specialty Start Date End Date Darius Tamayo MD [address] [place] [address] PCP - General Gastroenterology 12/22/24 documented as of this encounter
--- OUTSIDE RECORDS SUMMARY | 2025-05-07 09:59 | XMS_ITS | Encounter Summary ---
Author Organization [facility] Address [address] [place] [address] Care Team Providers Care Mohs Surgeon Name Role Phone Darius Tamayo MD Primary Care Provider [phone] Encounter Details Date Type Department Care Team (Late st Contact Info) Description 04/30/2025 Orders Only External Imaging [address] [place] [address] Radiology, External [address] [place] [address] Social History Tobacco Use Types Packs/Day Years [...] Info) Description 05/11/2025 4:00 PM EST Follow-Up [facility] Liver Transplant Services [address] [place] [address] Lauren Hancock MD [address] [place] [address] 07/15/2025 1:00 PM EST Office Visit [facility] Building 4th floor Cardiology Medicine [address] [place] [address] Head Banquet Waiter/Waitress: Tavia Campos MD [address] [place] [address] Pending Results Name Type Priority Associated Diagnoses [...] on filedocumented in this encounter Care Teams Mohs Surgeon Relationship Specialty Start Date End Date Darius Tamayo MD [address] [place] [address]46 PCP - General Gastroenterology 12/22/24 documented as of this encounter
--- OUTSIDE RECORDS SUMMARY | 2025-05-07 10:00 | XMS_ITS | Encounter Summary ---
Author Organization [facility] Address [address] [place] [address] Care Team Providers Care Online Marketer Name Role Phone Darius Tamayo MD Primary Care Provider [phone] Encounter Details Date Type Department Care Team (Late st Contact Info) Description 03/18/2025 Results Follow-Up [facility] Liver Transplant Services [address] [place] [address] Sabrina Dahl RN Social History Tobacco Use [...] Info) Description 05/11/2025 4:00 PM EST Follow-Up [facility] Liver Transplant Services [address] [place] [address] 615[address] Lauren Hancock MD [address] [place] [address] 60[address] 07/15/2025 1:00 PM EST Office Visit [facility] 4th floor Cardiology Medicine [address] [place] [address] 137[address] Peer Counselor: Tavia Campos MD [address] [place] [address] 84171 Scheduled Procedures Name Priority Associated Diagnoses Date/Ti me UPPER ENDOSCOPY; DIAGNOSTIC WITH BRUSH/WASH (SP) WITH POSSIBLE MODERATE SEDATION Chronic hepatitis C with cirrhosis Hepatocellular carcinoma Awaiting liver transplant documented as of this encounter Visit Diagnoses Not on filedocumented in this encounter Care Teams Online Marketer Relationship Specialty Start Date End Date Darius Tamayo MD [address] [place] [address] PCP - General Gastroenterology 12/22/24 documented as of this encounter
--- OUTSIDE RECORDS SUMMARY | 2025-05-07 10:00 | XMS_ITS ---
Author Organization [facility] Address [address] [place] [address] Care Team Providers Care Liquid Compounder Name Role Phone Darius Tamayo MD Primary Care Provider [phone] Transplant Episode Liver Candidate [facility] ([place], [place]) [facility] Center waitlisted on 03/02/2025 Marked as Active on 03/02/2025 Liver CoordinatorSabrina Dahl RN Phone: N/A Fax: N/A Email: N/A Scores Score Value Updated Expires Exceptions/[place] sons CPRA Not available UNOS MELD 11 03/02/2025 05/31/2025 MELD (Calc) 11 03/01/2025 [place] Organ Diagnosis Organ Primary Contributory Liver Primary Liver Malign kary: Hepatoma (HCC) and Cirrhosis 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) Infection History Noted Survival Infection Treatment Organism Resolved 11/25/2015 Chronic hepatitis C Care Team Name Role Phone Fax Email Sabrina Dahl RN Liver Coordinator N/A N/A N/A Lauren Hancock MD [employer] Supervisor [phone] [email or web address] [email or web address] Darius Tamayo MD Referring Physician [phone] [email or web address] Pre-Transplant Referred: 12/01/2024 Evaluation began: 12/22/2024 Committee: 01/28/2025 Center waitlisted: 03/02/2025 Appointments (04/07/2025 - 06/07/2025) When With Visit Type Description 04/22/2025 Transplant - Fawn Hancock Follow Up Canceled (Patient - Personal Reason) 05/11/2025 Transplant - Fawn Hancock llo Esteban
[2025-05-07 11:07] VITALS: BP 106/59; PULSE 63; RESP 16; O2SAT 97
[2025-05-07 11:13] LABS: MANUAL DIFF FLAG NO
[2025-05-07 11:31] LABS: Alanine Aminotransferase 26 U/L (0-31); Albumin Level 3.8 g/dL (3.5-5.0); Alkaline Phosphatase 51 U/L (39-117); Anion Gap 13 (12-20); Aspartate Amino Transferase 32 U/L (5-31); Blood Urea Nitrogen 20 mg/dL (9-16); Calcium 9.7 mg/dL (8.4-10.2); Carbon Dioxide 27 mmol/L (22-29); Chloride 105 mmol/L (96-108); Creatinine Clr Calc Pharmacy 49.0; Estimated Glomerular Filt Rate > 60; Potassium 3.4 mmol/L (3.3-5.1); Sodium 142 mmol/L (135-145); Total Protein 7.3 g/dL (6.5-8.0)
[2025-05-07 11:37] LABS: Hematocrit 38.5 % (37.0-47.0); Hemoglobin 12.3 g/dl (12.0-16.0); Imm Gran Abs Auto 0.03 X10*3/uL (0.00-0.03); Imm Gran Pct Auto 0.6 % (0.0-0.4); Lymphocytes Absolute Auto 0.8 X10*3/uL (1.2-4.9); Mean Corpuscular HGB Conc 31.9 g/dl (31.0-35.0); Mean Corpuscular Hemoglobin 28.7 pg (27.0-33.0); Mean Corpuscular Volume 90.0 fL (80.0-98.0); NRBC Abs Auto 0.000 X10*3/uL (0.0-0.012); NRBC Pct Auto 0.0 /100WBC (0.0-0.2); Platelet Count 141 X10*3/uL (160-400); Red Blood Count 4.28 X10*6/uL (4.20-5.50); White Blood Count 5.0 X10*3/uL (4.8-10.8)
[2025-05-07 11:59] VITALS: BP 106/59; PULSE 63; RESP 16; TEMP -17.7; TEMP 0; O2SAT 97
== END 2025-05-07 12:01 | disposition home or self-care (01) ==
PROVIDERS: Physician Assistant Medical; Emergency Provider Emergency Medicine; PCP Nurse Practitioner Primary Care
DX: L29.9 Pruritus, unspecified (principal); R21 Rash and other nonspecific skin eruption; I48.0 Paroxysmal atrial fibrillation; Z79.01 Long term (current) use of anticoagulants
CPT/HCPCS: 36415; 80048; 80076; 85025; 96372; 99284; J2919